=== PATIENT | male | born 1950 | race African-American/Black ===

== ENCOUNTER 2016-06-27 01:44 | Inpatient (IN) | payer MEDICARE ==
[2016-06-27 02:06] LABS: Basophils % (A) 1 %; CH 30.5; CHCM 31.6; Eosinophils # (A) 0.1 k/uL (0-0.7); Eosinophils % (A) 2 %; HCT 34.2 % (39.0-53.0); HDW 2.93; HGB 10.4 gm/dL (13.0-17.5); Hypochromasia Slight; Luc # (Auto) 0.12; Luc % (Auto) 3; Lymphocytes % (A) 42 %; MCH 29.6 pg (25.0-35.0); MCHC 30.4 g/dL (31.0-37.0); MCV 97.3 fL (80.0-100.0); Mean Platelet Volume 7.3; Monocytes # (A) 0.3 k/uL (0-1.0); Monocytes % (A) 6 %; Neutrophils # (A) 2.1 k/uL (1.3-7.7); Neutrophils % (A) 46 %; RBC 3.51 m/uL (4.30-5.90); RDW 15.5 % (11.5-15.5); WBC 4.6 k/uL (3.8-10.6); WBC (Perox) 5.02
--- NOTE | 2016-06-27 02:16 | ED ---
General Adult HPI - General Chief complaint: Chest Pain Stated complaint: Chest Pain Time Seen by Provider: 06/27/16 01:55 Source: patient, EMS, RN notes reviewed, old records reviewed Mode of arrival: EMS Limitations: no limitations - History of Present Illness Initial comments: This is a 65-year-old male here for evaluation. His patient presents for evaluation of chest pain. Patient presenting for evaluation of chest pain starting earlier tonight waking him up from sleep. Patient's arrival fall last night but he states that it wasn't severe enough to come the emergency room. Patient does have history of high blood pressure, unsure of prior cardiac evaluation and workup, denies drugs or alcohol. No fevers cough or congestion, no significant source of breath. Patient does admit history of pancreatitis - Related Data Home Medications Medication Instructions Recorded Confirmed amLODIPine [Norvasc] 5 mg PO DAILY 06/27/16 06/27/16 Allergies Allergy/AdvReac Type Severity Reaction Status Date / Time aspirin Allergy Nausea & Verified 06/27/16 01:50 Vomiting Review of Systems ROS Statement: Those systems with pertinent positive or pertinent negative responses have been documented in the HPI. ROS Other: All systems not noted in ROS Statement are negative. Past Medical History Past Medical History: Hypertension Additional Past Medical History / Comment(s): pancreatitis History of Any Multi-Drug Resistant Organisms: None Reported Past Surgical History: Orthopedic Surgery Past Psychological History: Bipolar, Depression Smoking Status: Current every day smoker Past Alcohol Use History: Occasional Past Drug Use History: None Reported General Exam Limitations: no limitations General appearance: alert, in no apparent distress, anxious, cachectic Head exam: Present: atraumatic, normocephalic, normal inspection Eye exam: Present: normal appearance, PERRL, EOMI. Absent: scleral icterus, conjunctival injection, periorbital swelling ENT exam: Present: mucous membranes dry Neck exam: Present: normal inspection. Absent: tenderness, meningismus, lymphadenopathy Respiratory exam: Present: normal lung sounds bilaterally. Absent: respiratory distress, wheezes, rales, rhonchi, stridor Cardiovascular Exam: Present: normal rhythm, tachycardia, normal heart sounds. Absent: systolic murmur, diastolic murmur, rubs, gallop, clicks GI/Abdominal exam: Present: soft, normal bowel sounds. Absent: distended, tenderness, guarding, rebound, rigid Extremities exam: Present: normal inspection, full ROM, normal capillary refill. Absent: tenderness, pedal edema, joint swelling, calf tenderness Back exam: Present: normal inspection Neurological exam: Present: alert, oriented X3, CN II-XII intact Psychiatric exam: Present: normal affect, normal mood Skin exam: Present: warm, dry, intact, normal color. Absent: rash Course Vital Signs 06/27/16 01:45 Temperature 97.6 F Pulse Rate 107 H Respiratory 20 Rate Blood Pressure 148/82 O2 Sat by Pulse 99 Oximetry - Reevaluation(s) Reevaluation #1: 06/27/16 02:57 patient remains with chest pain EKG Findings - EKG Comments: EKG Findings:: EKG shows sinus tachycardia rate 106, MA 120, QRS 82, QTC 434 Medical Decision Making - Medical Decision Making 65 male here for evaluation of chest pain. Patient multifactorial chest pain severe dehydration and acute renal failure, elevated BUN, elevated creatinine, mildly elevated potassium at this time. Patient given treatment for hyperkalemia, pain control for chest pain, mildly elevated troponin which we'll trend and patient will be started on anticoagulation, we will try troponin's and have cardiac evaluation as well as nephrology evaluation - Lab Data Result diagrams: 06/27/16 01:50 06/27/16 01:50 Lab Results 06/27/16 06/27/16 06/27/16 Range/Units 01:50 01:50 01:50 WBC 4.6 (3.8-10.6) k/uL RBC 3.51 L (4.30-5.90) m/uL Hgb 10.4 L (13.0-17.5) gm/dL Hct 34.2 L (39.0-53.0) % MCV 97.3 (80.0-100.0) fL MCH 29.6 (25.0-35.0) pg MCHC 30.4 L (31.0-37.0) g/dL RDW 15.5 (11.5-15.5) % Plt Count 253 (150-450) k/uL Neutrophils % 46 % Lymphocytes % 42 % Monocytes % 6 % Eosinophils % 2 % Basophils % 1 % Neutrophils # 2.1 (1.3-7.7) k/uL Lymphocytes # 2.0 (1.0-4.8) k/uL Monocytes # 0.3 (0-1.0) k/uL Eosinophils # 0.1 (0-0.7) k/uL Basophils # 0.0 (0-0.2) k/uL Hypochromasia Slight PT (9.0-12.0) sec INR (<1.1) APTT (22.0-30.0) sec Sodium 141 (137-145) mmol/L Potassium 5.9 H (3.5-5.1) mmol/L Chloride 116 H (98-107) mmol/L Carbon Dioxide 10 L* (22-30) mmol/L Anion Gap 15 mmol/L BUN 95 H* (9-20) mg/dL Creatinine 8.10 H* (0.66-1.25) mg/dL Est GFR (MDRD) Af Amer 8 (>60 ml/min/1.73 sqM) Est GFR (MDRD) Non-Af 7 (>60 ml/min/1.73 sqM) Glucose 91 (74-99) mg/dL Calcium 8.3 L (8.4-10.2) mg/dL Phosphorus 4.7 H (2.5-4.5) mg/dL Magnesium 1.8 (1.6-2.3) mg/dL Total Bilirubin 0.4 (0.2-1.3) mg/dL AST 108 H (17-59) U/L ALT 87 H (21-72) U/L Alkaline Phosphatase 303 H (38-126) U/L Total Creatine Kinase 55 (55-170) U/L CK-MB (CK-2) 1.3 (0.0-2.4) ng/mL CK-MB (CK-2) Rel Index 2.4 Troponin I 0.048 H* (0.000-0.034) ng/mL Total Protein 6.8 (6.3-8.2) g/dL Albumin 3.5 (3.5-5.0) g/dL 06/27/16 Range/Units 01:50 WBC (3.8-10.6) k/uL RBC (4.30-5.90) m/uL Hgb (13.0-17.5) gm/dL Hct (39.0-53.0) % MCV (80.0-100.0) fL MCH (25.0-35.0) pg MCHC (31.0-37.0) g/dL RDW (11.5-15.5) % Plt Count (150-450) k/uL Neutrophils % % Lymphocytes % % Monocytes % % Eosinophils % % Basophils % % Neutrophils # (1.3-7.7) k/uL Lymphocytes # (1.0-4.8) k/uL Monocytes # (0-1.0) k/uL Eosinophils # (0-0.7) k/uL Basophils # (0-0.2) k/uL Hypochromasia PT 11.0 (9.0-12.0) sec INR 1.1 (<1.1) APTT 24.8 (22.0-30.0) sec Sodium (137-145) mmol/L Potassium (3.5-5.1) mmol/L Chloride (98-107) mmol/L Carbon Dioxide (22-30) mmol/L Anion Gap mmol/L BUN (9-20) mg/dL Creatinine (0.66-1.25) mg/dL Est GFR (MDRD) Af Amer (>60 ml/min/1.73 sqM) Est GFR (MDRD) Non-Af (>60 ml/min/1.73 sqM) Glucose (74-99) mg/dL Calcium (8.4-10.2) mg/dL Phosphorus (2.5-4.5) mg/dL Magnesium (1.6-2.3) mg/dL Total Bilirubin (0.2-1.3) mg/dL AST (17-59) U/L ALT (21-72) U/L Alkaline Phosphatase (38-126) U/L Total Creatine Kinase (55-170) U/L CK-MB (CK-2) (0.0-2.4) ng/mL CK-MB (CK-2) Rel Index Troponin I (0.000-0.034) ng/mL Total Protein (6.3-8.2) g/dL Albumin (3.5-5.0) g/dL - Radiology Data Radiology results: report reviewed (Chest x-ray 2 view negative for acute disease , x-ray lumbosacral spine, x-ray of pelvis negative for traumatic injury ), image reviewed Critical Care Time Critical Care Time: Yes Total Critical Care Time: 31 Disposition Clinical Impression: NSTEMI (non-ST elevated myocardial infarction), Atypical chest pain, Chest pain , Renal failure, acute, Hyperkalemia Disposition: ADMITTED IP TO THIS HOSP Condition: Serious Instructions: Chest Pain (ED) Referrals: None,Stated [Primary Care Provider] - 1-2 days
[2016-06-27] MEDS ORDERED: SODIUM CHLORIDE 0.9% 1,000 ML IV STA ×3 (02:17→02:52)
[2016-06-27] MEDS ORDERED: SODIUM CHLORIDE 0.9% 500 ML IV STA ×2 (02:17→02:52)
[2016-06-27] MEDS ORDERED: PANTOPRAZOLE 40 MG/10 ML VIAL IVP STA (02:17)
[2016-06-27] MEDS ORDERED: MORPHINE SULFATE 4 MG/ML SYRINGE IVP STA ×2 (02:17→02:55)
[2016-06-27 02:18] LABS: Calcium 8.3 mg/dL (8.4-10.2); Magnesium 1.8 mg/dL (1.6-2.3); Potassium 5.9 mmol/L (3.5-5.1); Total Bilirubin 0.4 mg/dL (0.2-1.3); Total Protein 6.8 g/dL (6.3-8.2)
[2016-06-27 02:20] LABS: INR 1.1 (<1.1); Partial Thromboplastin Time 24.8 sec (22.0-30.0)
--- NOTE | 2016-06-27 02:23 | XR ---
EXAMINATION TYPE: XR chest 2V DATE OF EXAM: 06/27/2016 2:10 AM COMPARISON: NONE HISTORY: Chest and back pain after falling down steps yesterday. TECHNIQUE: Frontal and lateral views of the chest are obtained. FINDINGS: There is no focal air space opacity, pleural effusion, or pneumothorax seen. Chronic lung changes are noted bilaterally. The cardiac silhouette size is within normal limits. The osseous st ructures are intact. IMPRESSION: No acute cardiopulmonary process.
[2016-06-27 02:39] LABS: Phosphorous 4.7 mg/dL (2.5-4.5)
[2016-06-27 02:46] LABS: Creatine Kinase MB 1.3 ng/mL (0.0-2.4)
[2016-06-27 02:47] LABS: Troponin I 0.048 ng/mL (0.000-0.034)
[2016-06-27] MEDS ORDERED: HEPARIN SODIUM,PORCINE 5,000 UNIT/ML 1 ML VIAL IV ONE (02:53)
[2016-06-27] MEDS ORDERED: ASPIRIN 81 MG CHEW PO STA (02:53)
[2016-06-27] MEDS ORDERED: HEPARIN SODIUM,PORCINE 5,000 UNIT/ML 1 ML VIAL IV PRN (02:53)
[2016-06-27] MEDS ORDERED: MORPHINE SULFATE 4 MG/ML SYRINGE IV PRN (02:53)
[2016-06-27] MEDS ORDERED: NITROGLYCERIN SL TABS 0.4 MG TAB SUBLINGUAL PRN (02:53)
[2016-06-27] MEDS ORDERED: SODIUM POLYSTYRENE SULFONATE 15 GM/60 ML BOTTLE PO STA (02:59)
[2016-06-27] MEDS ORDERED: HEPARIN SODIUM,PORCINE/D5W PMX 25,000 UNIT in DEXTROSE/WATER 1 500ML.BAG IV SCH (03:00)
[2016-06-27] MEDS ORDERED: SODIUM CHLORIDE 0.9% 1,000 ML IV SCH (03:00)
--- NOTE | 2016-06-27 03:12 | XR ---
EXAMINATION TYPE: XR lumbar spine 2 or 3V DATE OF EXAM: 06/27/2016 2:52 AM CLINICAL HISTORY: History of fall down steps yesterday back pain TECHNIQUE: Frontal, lateral, images of the lumbar spine are obtained. COMPARISON: None FINDINGS: There is straightening of normal lumbar lordosis. Minor dextroscoliosis is noted in the lumbar spine. The alignment of vertebral bodies and body heights are grossly normal. No definite acute fracture is noted in the lumbar spine. Narrowing of disc space is noted at L2-L3 with the degenerative disc disea se changes and endplate spondylosis. L5-S1 disc space also showed degenerative disc disease changes. Vascular calcifications are noted in the abdominal aorta and iliac arteries. IMPRESSION: 1. No definite acute fracture is noted in the visualized lumbar spine. 2. Multilevel degenerative changes in the lumbar spine. 3. If clinical symptoms persist CT or MRI scan may be helpful.
--- NOTE | 2016-06-27 03:20 | XR ---
EXAMINATION TYPE: XR pelvis AP view DATE OF EXAM: 06/27/2016 2:52 AM COMPARISON: NONE HISTORY: History of fall down steps yesterday back pain TECHNIQUE: Single frontal view of pelvis was obtained. FINDINGS: No definite acute fracture or dislocation is noted in the visualized pelvic bones. Mild degenerative arthritic changes are present in both hip joints sacroiliac joints and lower lumbosacral spine. Phleb oliths are present in the pelvis. IMPRESSION: 1. No definite acute fracture is noted in the pelvic bones. 2. Mild degenerative changes in the pelvic bones. 3. If clinical symptoms persist a CT scan would be beneficial.
[2016-06-27 03:35] LABS: Acetaminophen <10.0 ug/mL; Salicylate <1.0 mg/dL
[2016-06-27 04:02] LABS: Glucose,Whole Blood 72 mg/dL (75-99)
[2016-06-27 04:32] LABS: Glucose,Whole Blood 117 mg/dL (75-99)
[2016-06-27] MEDS: DEXTROSE 5% IN WATER 1,000 ML with SODIUM BICARB (1 MEQ/ML) 150 ML IV SCH ×3 (05:09→22:00)
[2016-06-27 05:39] LABS: Basophils % (A) 1 %; CH 30.5; CHCM 31.2; Eosinophils # (A) 0.1 k/uL (0-0.7); Eosinophils % (A) 2 %; HCT 33.1 % (39.0-53.0); HDW 2.83; HGB 9.9 gm/dL (13.0-17.5); Hypochromasia Slight; Luc # (Auto) 0.15; Luc % (Auto) 3; Lymphocytes # (A) 2.3 k/uL (1.0-4.8); Lymphocytes % (A) 44 %; MCH 29.4 pg (25.0-35.0); MCHC 29.9 g/dL (31.0-37.0); MCV 98.2 fL (80.0-100.0); Macrocytosis Slight; Mean Platelet Volume 7.3; Monocytes # (A) 0.3 k/uL (0-1.0); Monocytes % (A) 6 %; Neutrophils # (A) 2.3 k/uL (1.3-7.7); Neutrophils % (A) 44 %; RBC 3.37 m/uL (4.30-5.90); RDW 15.2 % (11.5-15.5); WBC 5.2 k/uL (3.8-10.6); WBC (Perox) 4.96
[2016-06-27 06:14] LABS: Calcium 8.1 mg/dL (8.4-10.2); Magnesium 1.6 mg/dL (1.6-2.3); Phosphorous 6.8 mg/dL (2.5-4.5)
[2016-06-27 06:16] LABS: Potassium 6.5 mmol/L (3.5-5.1)
[2016-06-27 06:26] LABS: Glucose,Whole Blood 88 mg/dL (75-99)
[2016-06-27] MEDS ORDERED: FUROSEMIDE 10 MG/ML 4 ML VIAL IV STA (06:27)
[2016-06-27] MEDS ORDERED: DEXTROSE 50%-WATER 50 ML SYRINGE IVP STA (06:27)
[2016-06-27] MEDS ORDERED: INSULIN REGULAR 100 UNIT/ML VIAL IV ONE (06:28)
[2016-06-27] MEDS ORDERED: SODIUM BICARB 8.4% 50 ML SYR (1 MEQ/ML) IV STA (06:28)
[2016-06-27] MEDS ORDERED: MAGNESIUM SULFATE-D5W PMX 1 GM in DEXTROSE/WATER 1 100ML.BAG IVPB ONE (09:00)
[2016-06-27] MEDS ORDERED: PANTOPRAZOLE 40 MG/10 ML VIAL IVP SCH (09:00)
[2016-06-27] MEDS: ATORVASTATIN 80 MG TAB PO SCH (09:25)
[2016-06-27 09:50] LABS: Creatine Kinase MB 2.1 ng/mL (0.0-2.4); Troponin I 0.034 ng/mL (0.000-0.034)
--- NOTE | 2016-06-27 10:32 | ECHOF ---
Referral Reason:elevTrop MEASUREMENTS -------- HEIGHT: 170.2 cm WEIGHT: 65.8 kg BP: 178/100 RVIDd: 3.5 cm (< 3.3) IVSd: 1.3 cm (0.6 - 1.1) LVIDd: 3.9 cm (3.9 - 5.3) LVPWd: 1.2 cm (0.6 - 1.1) IVSs: 1.6 cm LVIDs: 2.6 cm LVPWs: 1.8 cm LA Diam: 2.9 cm (2.7 - 3.8) Ao Diam: 2.8 cm (2.0 - 3.7) AV Cusp: 1.5 cm (1.5 - 2.6) MV EXCURSION: 16.659 mm (> 18.000) MV EF SLOPE: 62 mm/s (70 - 150) EPSS: 0.2 cm MV E Zachary: 0.74 m/s MV DecT: 126 ms MV A Zachary: 0.86 m/s MV E/A Ratio: 0.85 FINDINGS -------- Resting tachycardia (HR>100bpm). This was a technically adequate study. The left ventricular size is normal. There is mild concentric left ventricular hypertrophy. Overall left ventricular systolic function is normal with, an EF between 60 - 65 %. The right ventricle is mildly enlarged. The left atrial size is normal. 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 There is mild aortic valve sclerosis. Mild mitral annular calcification present. Trace tricuspid regurgitation present. The pulmonic valve was not well visualized. The aortic root size is normal. Normal inferior vena cava with normal inspiratory collapse consistent with estimated right atrial pressure of 5 mmHg. There is no pericardial effusion. MYXOMA NEEDS NICO SEE COMMENTS ABOVE. CONCLUSIONS -------- 1. Resting tachycardia (HR>100bpm). 2. Mild mitral annular calcification present. 3. Trace tricuspid regurgitation present. 4. The pulmonic valve was not well visualized. 5. The aortic root size is normal. 6. Normal inferior vena cava with normal inspiratory collapse consistent with estimated right atrial pressure of 5 mmHg. 7. There is no pericardial effusion. 8. MYXOMA NEEDS NICO SEE COMMENTS ABOVE. 9. This was a technically adequate study. 10. The left ventricular size is normal. 11. There is mild concentric left ventricular hypertrophy. 12. Overall left ventricular systolic function is normal with, an EF between 60 - 65 %. 13. The right ventricle is mildly enlarged. 14. The left atrial size is normal. 15. The right atrium is normal in size. 16. There is mild aortic valve sclerosis. BRUSHER TENDER: Joycelyn Ohara RDCS
[2016-06-27 11:42] LABS: Appearance,Urine Clear (Clear); Bilirubin,Urine Negative (Negative); Glucose,Urine (UA) Trace (Negative); Ketones,Urine Negative (Negative); Leukocyte Esterase,Urine Negative (Negative); Mucus,Urine Rare /hpf; Nitrite,Urine Negative (Negative); PH, Urine 6.5 (5.0-8.0); Particle Count 192; Protein,Urine 1+ (Negative); RBC,Urine <1 /hpf (0-5); Specific Gravity,Urine 1.004 (1.001-1.035); Squamous Epithelial Cell,Urine <1 /hpf (0-4); UA Billing (MACRO vs. MICRO) MICRO; Urobilinogen,Urine <2.0 mg/dL (<2.0); WBC,Urine 2 /hpf (0-5)
--- NOTE | 2016-06-27 12:41 | P.NPCON ---
History of Present Illness - Reason for Consult acute renal failure, chronic renal failure - History of Present Illness Patient is a 65-year-old -[place] male who was admitted to the hospital status post fall with significant back pain. He had also been feeling quite weak. Patient is noted to have a serum creatinine of 8.1 mg/dL the time of admission his CO2 was 10 and potassium was at 5.6 which is now up to 6.5 mg/L. Patient has had good urine output and he states that he has been at stage IV with GFR of about 15 ML per minute for quite some time. 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 So far he has been able to avoid dialysis as his renal function has been fairly stable. There is no complaints of nausea vomiting or abdominal pain no ongoing diarrhea Review of Systems As per HPI other systems negative Past Medical History Past Medical History: Hypertension Additional Past Medical History / Comment(s): pancreatitis History of Any Multi-Drug Resistant Organisms: None Reported Past Surgical History: Orthopedic Surgery Past Psychological History: Bipolar, Depression Smoking Status: Current every day smoker Past Alcohol Use History: Occasional Past Drug Use History: None Reported Medications and Allergies Home Medications Medication Instructions Recorded Confirmed Type amLODIPine [Norvasc] 5 mg PO DAILY 06/27/16 06/27/16 History Allergies Allergy/AdvReac Type Severity Reaction Status Date / Time aspirin Allergy Nausea & Verified 06/27/16 01:50 Vomiting Physical Exam Vitals: Vital Signs Temp Pulse Pulse Resp BP BP Pulse Ox 06/27/16 04:00 98 F 84 14 177/94 06/27/16 03:25 98 F 87 14 177/94 06/27/16 03:21 82 18 158/91 100 Intake and Output 06/26/16 06/27/16 06/27/16 22:59 06:59 14:59 Intake Total 3299 Output Total 1100 625 Balance 2199 -625 Intake: IV 1299 Dextrose 5% in Water 1, 50 000 ml @ 50 mls/hr IV . Q23H BRITTON with Sodium Bicarb (1 Meq/ml) 150 ml Rx#:[id number] Sodium Chloride 0.9% 1, 250 000 ml @ 100 mls/hr IV . Q10H BRITTON Rx#:[id number] Sodium Chloride 0.9% 1, 999 000 ml @ 999 mls/hr IV . Q1H1M STA Rx#:[id number] Amount of Fluid Infused ( 2000 ml) Output: Urine 1100 625 Other: Voiding Method Urinal Urinal Weight 57.3 kg Examination patient is comfortable awake alert and oriented 3. He is not in any acute distress. Blood pressure is 177/94 heart rate 84/m he is afebrile [place] examination of the heart S1 and S2 His admission lungs bilateral breath sounds are heard Abdomen is soft nontender Examination lower extremities shows no evidence of edema GUN NUMBER exam is grossly intact. No asterixis are noted. Results - Lab Results Most recent lab results Calcium 8.1 mg/dL (8.4-10.2) L 06/27/16 05:21 Phosphorus 6.8 mg/dL (2.5-4.5) H 06/27/16 05:21 Magnesium 1.6 mg/dL (1.6-2.3) 06/27/16 05:21 06/27/16 05:21 06/27/16 05:21 Assessment and Plan Plan: Assessment start IV bicarb at 50 mL an hour and also start patient on oral sodium bicarb. If his hyperkalemia does not improve or the acidosis 1. Acute kidney injury most likely ATN currently nonoliguric. They may be a component of prerenal acute kidney injury as well. Patient is maintained on IV fluids and repeat labs are now pending. There is no evidence of significant symptoms of uremia at this time and I have discussed renal replacement therapy but the patient. He stated that he would be agreeable to start dialysis if indicated. 2. Chronic kidney disease NKF stage V with estimated GFR at about 15 ML per minute according to the patient. He was being followed in [facility] prior to him moving down here. 3. Severe metabolic acidosis, non-gap secondary to renal failure maintained on small amount of IV bicarb. Patient will also be started on oral sodium bicarb. 4. 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 5. Anemia of chronic disease rule out iron deficiency 6. Hyperkalemia associated with advanced renal failure and metabolic acidosis status post Kayexalate and IV treatment. Repeat labs are pending. Next Plan Start IV bicarb at 50 mL an hour and also start oral sodium bicarb. If the hyperkalemia and acidosis does not improve and patient's renal function does not improve he will need to be started on dialysis. Check iron profile check phosphorus levels. Thank you for this consultation we'll continue to follow the patient with you during his hospitalization
[2016-06-27] MEDS: amLODIPine 5 MG TAB PO SCH (12:47)
[2016-06-27] MEDS: METOPROLOL TARTRATE 25 MG TAB PO SCH ×3 (12:47→20:35)
[2016-06-27 14:56] LABS: Troponin I 0.029 ng/mL (0.000-0.034)
[2016-06-27] MEDS: HYDROmorphone 1 MG/ML 1 ML SYRINGE IVP PRN ×3 (15:02→23:07)
[2016-06-27 15:12] LABS: Calcium 8.4 mg/dL (8.4-10.2); Phosphorous 7.8 mg/dL (2.5-4.5); Potassium 5.9 mmol/L (3.5-5.1)
[2016-06-27 15:20] LABS: % Iron Saturation 71.5 % (20-50)
--- NOTE | 2016-06-27 16:18 | US ---
EXAMINATION TYPE: US renals and bladder DATE OF EXAM: 06/27/2016 12:51 PM COMPARISON: NONE CLINICAL HISTORY: US. BIBIANA EXAM MEASUREMENTS: Right Kidney: 9.5 x 4.0 x 4.1cm Left Kidney: 7.9 x 4.5 x 3.6cm ANATOMY: There is loss of corticomedullary differentiation bilaterally. Right Kidney: echogenic in appearance, no evidence of hydronephrosis Left Kidney: limited evaluation, difficult to visualize, echogenic in appearance Bladder: possible debris noted within IMPRESSION: Findings suggest medical renal disease.. Normal Values: Renal Length = 9 - 12cm Bladder Wall: < 0.3cm
--- NOTE | 2016-06-27 18:19 | HP ---
DATE OF ADMISSION: 06/27/2016 65-year-old who came to the hospital after he had a fall. The patient complaining of chest pain. All the work-up ( ). The patient did not have any syncopal episode. Patient had slip and fall. Lumbar x-ray, pelvic x-ray are essentially negative. Patient is also found to have ( ) patient is complaining of sharp chest pain. Has been constant since last night and denied any nausea. Denied diaphoresis. Denied any abdominal ( ) patient does not have any pericardial friction rub. Patient denied any nausea, vomiting. Patient chest pain is nonpleuritic in nature. Does not change with position. About 10/10 in severity with minimal improvement with sublingual nitroglycerin. Patient was found to have highly elevated BUN and creatinine. Nephrology was consulted. Ultrasound of the kidney was obtained. Urine eosinophils, BUN and creatinine urine creatinine, random creatinine and urine random sodium were ordered and patient is on IV fluids, has been urinating very well and patient apparently appears to have some CKD. Patient was told his kidney is functioning at 15%. Patient denied any nausea, vomiting, bad taste in the mouth. Patient does not have any asterixis at this point of time. Patient is severely uremic and hyperkalemic and patient received Kayexelate as well and IV insulin and calcium gluconate. Nephrology will evaluate the patient. REVIEW OF SYSTEMS: CONSTITUTIONAL: No fever, no malaise, no fatigue. HEENT: No recent visual problems or hearing problems. Denied any sore throat. CARDIOVASCULAR: As described in history of present illness. PULMONARY: No shortness of breath, no cough, no hemoptysis. GASTROINTESTINAL: No diarrhea, no nausea, no vomiting, no abdominal pain. Normoactive bowel sounds. NEUROLOGICAL: No headaches, no weakness, no numbness. HEMATOLOGICAL: Denies any bleeding or petechiae. GENITOURINARY: Denies any burning micturition, frequency, or urgency. MUSCULOSKELETAL/RHEUMATOLOGICAL: As described in history of present illness. ENDOCRINE: Denies any polyuria or polydipsia. The rest of the 14 point review of systems is negative. Past medical history is significant for hypertension, a possibility of hypertensive nephrosclerosis, bipolar disorder, depression, possible chronic kidney disease stage is unknown at this point of time possibly stage 4 or 5. The patient continues to smoke. Denied any alcohol abuse or any drug abuse. FAMILY HISTORY: Unknown at this point of time. PHYSICAL EXAMINATION: VITAL SIGNS: Temperature 980.0, pulse of 83, respiratory rate of 18, blood pressure 138/99, saturating at 98% on room air. GENERAL: The patient is alert and oriented x3, not in any acute distress. Well developed, well nourished. HEENT: Pupils are round and equally reacting to light. EOMI. No scleral icterus. No conjunctival pallor. Normocephalic, atraumatic. No pharyngeal erythema. No thyromegaly. CARDIOVASCULAR: S1 and S2 present. No murmurs, rubs, or gallops. PULMONARY: Chest is clear to auscultation, no wheezing or crackles. ABDOMEN: Soft, nontender, nondistended, normoactive bowel sounds. No palpable organomegaly. MUSCULOSKELETAL: No joint swelling or deformity. EXTREMITIES: No cyanosis, clubbing, or pedal edema. NEUROLOGICAL: Gross neurological examination did not reveal any focal deficits. SKIN: No rashes. LABORATORY DATA: CMP and BMP are abnormal for low hemoglobin of 9.9, normocytic anemia, probably anemia of chronic kidney disease and potassium of 6.5, now 5.9, sodium 144, now 148, bicarbonate is 12. Patient is receiving IV bicarbonate as per nephrology and anion gap is 20. Patient is uremic and uremia is leading to anion gap metabolic acidosis. BUN 94, creatinine 7.10. Patient has very minimal elevated troponins of 0.034. Patient received an echocardiogram because of the chest which is essentially within normal limits. Ultrasound of the kidneys pending. Chest x-ray did not show any acute process. ASSESSMENT AND PLAN: 1. Chest pain, appears to be a noncardiac in nature, unsure of the exact etiology further evaluation as per cardiology who was consulted and patient has minimal elevated troponins because of chronic kidney disease and renal failure. 2. Acute renal failure, most likely acute tubular necrosis nonoliguric acute tubular necrosis. Patient is having good urine output. Continue with IV fluids and further work-up as mentioned above and bicarbonate infusion as mentioned above. 3. Patient symptoms of chest pain does not appear to be uremic as patient does not have any pericardial friction on exam. I will avoid nephrotoxic agents and switch morphine to Dilaudid at a lower dose. 4. Hyperkalemia patient appears to have chronic kidney disease probably stage IV or V secondary to hypertensive nephrosclerosis. 5. Severe metabolic encephalopathy secondary to uremia. 6. Mobile mass in the tricuspid valves for which he is being recommended, I will leave further decision to cardiology to do a NICO. 7. Anemia of chronic kidney disease and ferritin is being ordered to rule out any iron deficiency anemia. 8. Hyperkalemia due to renal failure. 9. Hypertension. Will let the blood pressure ( ) to improve perfusion. 10. The patient work-up for his fall is negative. Fall appears to be mechanical fall.
--- NOTE | 2016-06-27 19:09 | P.CRDCN ---
History of Present Illness Consult date: 06/27/16 Chief complaint: Chest Pain and back pain History of present illness: This is a 65-year-old gentleman who moved to this area recently from [place]. He claims that he had chronic renal failure and was being followed by senior hydrogeologist in [place]. He also claimed that he was on dialysis one time. Apparently he came following a fall and back pain. He is also complaining of chest pain which is constant in nature. He claims the pain was 10 out of 10 when it started and currently about 7 out of 10. The pain is not helped by nitroglycerin. It is helped to some extent by morphine. He doesn't seem to be in acute distress. The pain doesn't appear to be respirophasic. No associated nausea or vomiting. His EKG showed sinus rhythm and sinus tachycardia. Cardiac enzyme studies were borderline elevation of troponin but the pattern is not consistent with acute myocardial injury pattern. Is also found to have high creatinine suggestive of acute on chronic renal failure. His potassium is also going up and is being seen by senior hydrogeologist and there is a plan for possible dialysis. A bedside echocardiogram showed normal LV function. There is a echo dense slightly mobile lesion near the annulus of the mitral leaflet on the lateral aspect. The possibility of a myxoma cannot be excluded. When patient is stable a NICO examination may be considered probably next week. Review of Systems REVIEW OF SYSTEMS: CONSTITUTIONAL:. Patient appears to be in no distress. However complaints of having pain in the chest. EYES: Denies diplopia, blurring of vision EARS, NOSE, MOUTH, THROAT: Denies headaches, denies sore throat. CARDIOVASCULAR: As per the H&P and consult RESPIRATORY: Denies shortness of breath, denies cough. GASTROINTESTINAL: Denies change in appetite, denies abdominal pain, denies diarrhea GENITOURINARY: Denies hematuria, denies infections. MUSKULOSKELETAL: Implants of back pain INTEGUMENTARY: Denies rash, denies eczema. NEUROLOGICAL: Denies focal weakness, or visual disturbance. Denies any dizziness or syncope PSYCHIATRIC: Denies anxiety, denies depression. HEMATOLOGIC/LYMPHATIC: Denies any bleeding, denies enlarged lymph nodes. Past Medical History Past Medical History: Hypertension Additional Past Medical History / Comment(s): pancreatitis History of Any Multi-Drug Resistant Organisms: None Reported Past Surgical History: Orthopedic Surgery Past Psychological History: Bipolar, Depression Smoking Status: Current every day smoker Past Alcohol Use History: Occasional Past Drug Use History: None Reported Medications and Allergies Home Medications Medication Instructions Recorded Confirmed Type amLODIPine [Norvasc] 5 mg PO DAILY 06/27/16 06/27/16 History Allergies Allergy/AdvReac Type Severity Reaction Status Date / Time aspirin Allergy Nausea & Verified 06/27/16 01:50 Vomiting Physical Exam Vitals: Vital Signs Temp Pulse Pulse Resp BP BP Pulse Ox 06/27/16 16:00 98 F 82 18 159/93 95 06/27/16 12:00 98 F 83 18 178/99 98 06/27/16 08:00 97.8 F 98 18 178/100 98 06/27/16 04:00 98 F 84 14 177/94 06/27/16 03:25 98 F 87 14 177/94 06/27/16 03:21 82 18 158/91 100 Intake and Output 06/27/16 06/27/16 06/27/16 06:59 14:59 22:59 Intake Total 3299 800 Output Total 6738 036 8583 Balance 2199 -625 -1000 Intake: IV 1299 800 Dextrose 5% in Water 1, 50 400 000 ml @ 50 mls/hr IV . Q23H [facility] with Sodium Bicarb (1 Meq/ml) 150 ml Rx#:[id number] Sodium Chloride 0.9% 1, 250 400 000 ml @ 100 mls/hr IV . Q10H [facility] Rx#:[id number] Sodium Chloride 0.9% 1, 999 000 ml @ 999 mls/hr IV . Q1H1M [facility] Rx#:[id number] Amount of Fluid Infused ( 2000 ml) Output: Urine 3380 176 6582 Other: Voiding Method Urinal Urinal Urinal Weight 57.3 kg GENERAL EXAM: Patient is alert and oriented and doesn't appear to be in any acute distress HEENT: Normocephalic. Normal reaction of pupils, equal size, normal range of extraocular motion. No erythema or exudates in the throat. NECK: No masses, no nuchal rigidity. CHEST: No chest wall deformity. LUNGS: Equal air entry with no crackles or wheeze. HEART: S1 and S2 normal with no audible mumurs or gallops. Regular rhythm, no pericardial rub heard ABDOMEN: No hepatosplenomegaly, normal bowel sounds, no guarding or rigidity. SKIN: No rashes CENTRAL NERVOUS SYSTEM: No focal deficits. EXTREMITIES: No cyanosis, clubbing or edema. Results 06/27/16 05:21 06/27/16 14:10 Cardiac Enzymes 06/27/16 06/27/16 Range/Units 08:51 14:10 CK-MB (CK-2) 2.1 3.0 H* (0.0-2.4) ng/mL Troponin I 0.034 0.029 (0.000-0.034) ng/mL Coagulation 06/27/16 Range/Units 08:51 APTT 54.0 H (22.0-30.0) sec CBC 06/27/16 Range/Units 05:21 WBC 5.2 (3.8-10.6) k/uL RBC 3.37 L (4.30-5.90) m/uL Hgb 9.9 L (13.0-17.5) gm/dL Hct 33.1 L (39.0-53.0) % Plt Count 252 (150-450) k/uL Comprehensive Metabolic Panel 06/27/16 06/27/16 Range/Units 05:21 14:10 Sodium 144 148 H (137-145) mmol/L Potassium 6.5 H* 5.9 H (3.5-5.1) mmol/L Chloride 119 H 116 H (98-107) mmol/L Carbon Dioxide 10 L* 12 L (22-30) mmol/L BUN 88 H* 94 H* (9-20) mg/dL Creatinine 7.52 H* 7.10 H* (0.66-1.25) mg/dL Glucose 79 105 H (74-99) mg/dL Calcium 8.1 L 8.4 (8.4-10.2) mg/dL Current Medications Generic Name Dose Route Start Last Admin Trade Name Freq PRN Reason Stop Dose Admin Amlodipine Besylate 5 mg 06/27/16 12:15 06/27/16 12:47 Norvasc PO 5 mg DAILY [facility] Administration Aspirin 325 mg 06/28/16 09:00 Aspirin PO DAILY [facility] Atorvastatin Calcium 80 mg 06/27/16 09:00 06/27/16 09:25 Lipitor PO 80 mg DAILY [facility] Administration Hydromorphone HCl 0.5 mg 06/27/16 11:18 06/27/16 18:55 Dilaudid IVP 0.5 mg Q4HR PRN Administration Pain Sodium Bicarbonate 150 ml/ 1,150 mls @ 100 mls/hr 06/27/16 05:00 06/27/16 18: 55 Dextrose/Water IV 100 mls/hr .[id number] [facility] Administration Metoprolol Tartrate 25 mg 06/27/16 21:00 06/27/16 12:49 Lopressor PO 25 mg BID [facility] Administration Nitroglycerin 0.4 mg 06/27/16 02:53 Nitrostat SUBLINGUAL Q5M PRN Chest Pain Pantoprazole Sodium 40 mg 06/28/16 09:00 Protonix PO DAILY [facility] Intake and Output 06/27/16 06/27/16 06/27/16 06:59 14:59 22:59 Intake Total 3299 800 Output Total 4031 350 7166 Balance 2192 -625 1000 Intake: IV 1299 800 Dextrose 5% in Water 1, 50 400 000 ml @ 50 mls/hr IV . Q23H [facility] with Sodium Bicarb (1 Meq/ml) 150 ml Rx#:[id number] Sodium Chloride 0.9% 1, 250 400 000 ml @ 100 mls/hr IV . Q10H [facility] Rx#:[id number] Sodium Chloride 0.9% 1, 999 000 ml @ 999 mls/hr IV . Q1H1M [facility] Rx#:[id number] Amount of Fluid Infused ( 2000 ml) Output: Urine 8599 327 1894 Other: Voiding Method Urinal Urinal Urinal Weight 57.3 kg 06/27/16 05:21 06/27/16 14:10 EKG Interpretations (text) Sinus rhythm and sinus tachycardia Assessment and Plan (1) Acute on chronic renal failure Status: Acute (2) Hypertension Status: Acute (3) Atypical chest pain Status: Acute (4) Hyperkalemia Status: Acute Plan: History chest pains appear to be atypical and constant in nature. EKG did not reveal any acute changes and cardiac enzymes are not consistent with acute myocardial injury pattern. Echocardiogram showed normal LV function. There is questionable mass in the right atrium which need to be further evaluated by NICO when patient's clinical status is stable. We are dealing with acute on chronic renal failure and patient may need dialysis. No further cardiac intervention like cardiac catheterization is contemplated this time. Possibility of nuclear stress test and is medically stable to be considered. Further recommendation will depend upon the clinical course. Prognosis is guarded
[2016-06-27 21:02] LABS: Calcium 8.1 mg/dL (8.4-10.2); Potassium 5.6 mmol/L (3.5-5.1)
[2016-06-28] MEDS: HYDROmorphone 1 MG/ML 1 ML SYRINGE IVP PRN ×5 (03:05→22:13)
[2016-06-28 05:21] LABS: CH 30.6; CHCM 32.6; HCT 30.7 % (39.0-53.0); HDW 2.81; HGB 9.9 gm/dL (13.0-17.5); MCH 30.5 pg (25.0-35.0); MCHC 32.3 g/dL (31.0-37.0); MCV 94.2 fL (80.0-100.0); Mean Platelet Volume 6.3; RBC 3.26 m/uL (4.30-5.90); RDW 15.2 % (11.5-15.5)
[2016-06-28 05:47] LABS: Calcium 7.9 mg/dL (8.4-10.2); Magnesium 1.6 mg/dL (1.6-2.3); Potassium 4.3 mmol/L (3.5-5.1); Total Bilirubin 0.4 mg/dL (0.2-1.3); Total Protein 5.9 g/dL (6.3-8.2)
[2016-06-28] MEDS: ATORVASTATIN 80 MG TAB PO SCH (08:51)
[2016-06-28] MEDS: METOPROLOL TARTRATE 25 MG TAB PO SCH ×2 (08:51→19:58)
[2016-06-28] MEDS: amLODIPine 5 MG TAB PO SCH (08:51)
[2016-06-28] MEDS: ASPIRIN 325 MG TAB PO SCH ×2 (08:51→09:52)
[2016-06-28] MEDS: PANTOPRAZOLE 40 MG TABLET PO SCH (08:51)
--- NOTE | 2016-06-28 09:36 | P.PN ---
Subjective Principal diagnosis: Patient is seen in follow-up for acute kidney injury on chronic kidney disease. Patient has chronic kidney disease stage 4-5 and was following with a pot fluxer out of state. His renal function is improving and creatinine is down to 6.1 today. He is nonoliguric. Appetite is improving. His bicarb level is up to 21. He initially presented with generalized weakness and fall. Feels better today. Denies any vomiting or diarrhea. Vital signs are stable. General: The patient appeared well nourished and normally developed. HEENT: Head exam is unremarkable. Neck is without jugular venous distension. LUNGS: Lungs are clear to auscultation and percussion. Breath sounds decreased. HEART: Rate and Rhythm are regular. First and second heart sounds normal. No murmurs, rubs or gallops. ABDOMEN: Abdominal exam reveals normal bowel sounds. Non-tender and non- distended. No evidence of peritonitis. EXTREMITITES: No clubbing, cyanosis, or edema. Objective - Vital Signs Vital signs: Vital Signs Temp 97.9 F 06/28/16 04:00 Pulse 67 06/28/16 04:00 Resp 16 06/28/16 04:00 BP 143/92 06/28/16 04:00 Pulse Ox 94 L 06/28/16 04:00 Intake & Output 06/27/16 06/28/16 06/28/16 18:59 06:59 18:59 Intake Total 800 1000 Output Total 2425 1150 Balance -1625 -150 Weight 57.606 kg Intake: IV 800 1000 Dextrose 5% in Water 1, 400 1000 000 ml @ 100 mls/hr IV . [id number] [facility] with Sodium Bicarb (1 Meq/ml) 150 ml Rx#:[id number] Sodium Chloride 0.9% 1, 400 000 ml @ 100 mls/hr IV . Q10H [facility] Rx#:[id number] Output: Urine 2425 1150 Other: Voiding Method Urinal Urinal # Voids 1 - Labs CBC & Chem 7: 06/28/16 05:03 06/28/16 05:03 Labs: Abnormal Lab Results - Last 24 Hours (Table) 06/27/16 06/27/16 06/27/16 Range/Units 08:51 11:25 11:25 RBC (4.30-5.90) m/uL Hgb (13.0-17.5) gm/dL Hct (39.0-53.0) % Sodium (137-145) mmol/L Potassium (3.5-5.1) mmol/L Chloride (98-107) mmol/L Carbon Dioxide (22-30) mmol/L BUN (9-20) mg/dL Creatinine (0.66-1.25) mg/dL Glucose (74-99) mg/dL Calcium (8.4-10.2) mg/dL Phosphorus (2.5-4.5) mg/dL Iron (49-181) ug/dL % Saturation (20-50) % AST (17-59) U/L ALT (21-72) U/L Alkaline Phosphatase (38-126) U/L Total Creatine Kinase 51 L (55-170) U/L CK-MB (CK-2) (0.0-2.4) ng/mL Total Protein (6.3-8.2) g/dL Albumin (3.5-5.0) g/dL HDL Cholesterol (40-60) mg/dL Urine Protein 1+ H (Negative) Urine Glucose (UA) Trace H (Negative) Urine Mucus Rare H (None) /hpf Ur Random Sodium 129 H (30-90) mmol/L 06/27/16 06/27/16 06/27/16 Range/Units 14:10 14:10 20:20 RBC (4.30-5.90) m/uL Hgb (13.0-17.5) gm/dL Hct (39.0-53.0) % Sodium 148 H (137-145) mmol/L Potassium 5.9 H 5.6 H (3.5-5.1) mmol/L Chloride 116 H 109 H (98-107) mmol/L Carbon Dioxide 12 L 15 L (22-30) mmol/L BUN 94 H* 92 H* (9-20) mg/dL Creatinine 7.10 H* 6.67 H* (0.66-1.25) mg/dL Glucose 105 H 152 H (74-99) mg/dL Calcium 8.1 L (8.4-10.2) mg/dL Phosphorus 7.8 H (2.5-4.5) mg/dL Iron 221 H (49-181) ug/dL % Saturation 71.5 H (20-50) % AST (17-59) U/L ALT (21-72) U/L Alkaline Phosphatase (38-126) U/L Total Creatine Kinase (55-170) U/L CK-MB (CK-2) 3.0 H* (0.0-2.4) ng/mL Total Protein (6.3-8.2) g/dL Albumin (3.5-5.0) g/dL HDL Cholesterol (40-60) mg/dL Urine Protein (Negative) Urine Glucose (UA) (Negative) Urine Mucus (None) /hpf Ur Random Sodium (30-90) mmol/L 06/28/16 06/28/16 Range/Units 05:03 05:03 RBC 3.26 L (4.30-5.90) m/uL Hgb 9.9 L (13.0-17.5) gm/dL Hct 30.7 L (39.0-53.0) % Sodium (137-145) mmol/L Potassium (3.5-5.1) mmol/L Chloride (98-107) mmol/L Carbon Dioxide 21 L (22-30) mmol/L BUN 88 H* (9-20) mg/dL Creatinine 6.10 H* (0.66-1.25) mg/dL Glucose (74-99) mg/dL Calcium 7.9 L (8.4-10.2) mg/dL Phosphorus 6.0 H (2.5-4.5) mg/dL Iron (49-181) ug/dL % Saturation (20-50) % AST 73 H (17-59) U/L ALT 83 H (21-72) U/L Alkaline Phosphatase 283 H (38-126) U/L Total Creatine Kinase (55-170) U/L CK-MB (CK-2) (0.0-2.4) ng/mL Total Protein 5.9 L (6.3-8.2) g/dL Albumin 3.0 L (3.5-5.0) g/dL HDL Cholesterol 106 H (40-60) mg/dL Urine Protein (Negative) Urine Glucose (UA) (Negative) Urine Mucus (None) /hpf Ur Random Sodium (30-90) mmol/L Assessment and Plan Plan: Assessment: #1. Nonoliguric acute kidney injury mostly prerenal in nature. Improving. Creatinine down to 6.1 today. No hydronephrosis noted on renal ultrasound. #2. Chronic kidney disease stage 4-5 with baseline GFR about 15. Etiology is likely nephrosclerosis. #3. Severe metabolic acidosis secondary to acute kidney injury. Improving. #4. Hyperkalemia secondary to acute kidney injury and metabolic acidosis. Resolved. #5. 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 Cardiology following. May require NICO. #6. Anemia of chronic kidney disease. Iron replete. Plan: Discontinue sodium bicarbonate drip. Start oral sodium bicarbonate 650 mg twice daily. Start normal saline to be run at 75 mL an hour. Avoid nephrotoxic agents and hypotensive episodes. Repeat electrolytes in the morning. Stable to be transferred out of the intensive care unit from nephrology standpoint.
[2016-06-28] MEDS: SODIUM CHLORIDE 0.9% 1,000 ML IV SCH (09:45)
[2016-06-28] MEDS: MAGNESIUM SULFATE-D5W PMX 1 GM in DEXTROSE/WATER 1 100ML.BAG IVPB SCH ×2 (09:45→12:11)
[2016-06-28] MEDS: SODIUM BICARBONATE TAB 650 MG TAB PO SCH ×2 (12:12→19:58)
--- NOTE | 2016-06-28 14:16 | PN ---
Patient is 65-year-old who came into the hospital after a fall. Patient is still having little bit of chest pain which is noncardiac in nature and patient has minimal improvement in BUN and creatinine. We are just monitor at this point of time. Patient is switched over to bicarbonate. 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 REVIEW OF SYSTEMS: CARDIOVASCULAR: As described in HPI. The patient denied any shortness of breath. PULMONARY: Denied any shortness of breath. No cough or hemoptysis. GASTROINTESTINAL: No diarrhea, nausea or vomiting. No abdominal pain. Normoactive bowel sounds. NEUROLOGIC: No headaches, no weakness, no numbness. Medications were reviewed. PHYSICAL EXAMINATION: VITAL SIGNS: Temperature 98.1, pulse of 70, respiratory rate of 12, blood pressure is 142/88, saturating at 97% on room air. GENERAL: The patient is alert and oriented x3, not in any acute distress. Well developed, well nourished. HEENT: Pupils are round and equally reacting to light. EOMI. No scleral icterus. No conjunctival pallor. Normocephalic, atraumatic. No pharyngeal erythema. No thyromegaly. CARDIOVASCULAR: S1 and S2 present. No murmurs, rubs, or gallops. PULMONARY: Chest is clear to auscultation, no wheezing or crackles. ABDOMEN: Soft, nontender, nondistended, normoactive bowel sounds. No palpable organomegaly. MUSCULOSKELETAL: No joint swelling or deformity. EXTREMITIES: No cyanosis, clubbing, or pedal edema. NEUROLOGICAL: Gross neurological examination did not reveal any focal deficits. SKIN: No rashes. LABORATORY DATA: No significant change compared to yesterday except for minimal improvement in creatinine to 6.10 from 7.52. Potassium did improve to 4.3, chloride to 104. Patient is getting IV fluids at 75 mL of IV fluids. Bicarbonate improved to 21. ASSESSMENT AND PLAN: 1. Chest pain, appears to be noncardiac and musculoskeletal in nature. Troponin elevation I do not believe it is related to myocardial infarction. 2. Acute renal failure most likely secondary to acute tubular necrosis, nonoliguric acute tubular necrosis and patient does have chronic kidney disease stage IV to V. Continue with gentle hydration. Hydration may not help him much. Further management as per nephrology. Patient is on oral bicarbonate at this point of time. 3. Hyperkalemia due to kidney injury, which improved. 4. Severe metabolic acidosis secondary to uremia, which improved with bicarbonate infusion. 5. 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 6. Anemia of chronic kidney disease. I do not see any serum ferritin levels. Serum iron is 221. I do not have a ferritin level. Total saturation is 309. 7. Hypertension. 8. Mechanical fall without any fractures.
[2016-06-28] MEDS: HYDROcodone/APAP 5-325MG 1 EACH TAB PO PRN ×2 (16:02→19:58)
--- NOTE | 2016-06-28 21:59 | PN ---
DATE OF SERVICE: June 28, 2016 BRIEF HISTORY: This is a pleasant 65-year-old -[place] gentleman with a past medical history significant for chronic renal failure, who was admitted to the hospital after he fell at home. He was experiencing some chest discomfort which seems to be noncardiac. He underwent cardiac enzymes which came in to be slightly abnormal, but he was in acute renal failure, which could be responsible for the troponin abnormalities. On followup with him today, he denies having any chest pain or chest discomfort and also denies having any shortness of breath. Overall, he is feeling better. He underwent an echocardiogram which showed right atrial myxoma. Transesophageal echocardiogram is recommended. PHYSICAL EXAMINATION: GENERAL APPEARANCE: He does not look in any pain or any distress. Vitals showed the following: Temp is 97.6, heart rate 67, respiratory rate 16, pressure is 151/84 mmHg. Cardiovascular shows regular rate and rhythm. Respiratory shows clear breathing sounds bilaterally. DIAGNOSTIC WORKUP: WBC 5.0, hemoglobin 9.9, platelets 250. Sodium 138, potassium 4.3, creatinine 6.10, BUN of 88. Current medications include: 1. Aspirin 325 mg p.o. daily. 2. Atorvastatin 80 mg p.o. q.h.s. 3. Metoprolol 25 mg p.o. b.i.d. ASSESSMENT: 1. Status post fall. 2. Atypical chest discomfort. 3. Mildly abnormal cardiac enzymes. 4. Right atrial myxoma. PLAN: 1. Continue the current medical treatment with aspirin, statin and beta raciel. 2. Transesophageal echocardiogram to be performed next week.
[2016-06-29] MEDS: HYDROcodone/APAP 5-325MG 1 EACH TAB PO PRN ×5 (00:49→19:58)
[2016-06-29] MEDS: SODIUM CHLORIDE 0.9% 1,000 ML IV SCH ×2 (00:51→09:42)
[2016-06-29] MEDS: HYDROmorphone 1 MG/ML 1 ML SYRINGE IVP PRN ×5 (02:38→21:54)
[2016-06-29 06:45] LABS: Mean Platelet Volume 7.5
[2016-06-29 08:37] LABS: Calcium 8.4 mg/dL (8.4-10.2); Potassium 5.7 mmol/L (3.5-5.1)
--- NOTE | 2016-06-29 09:17 | P.PN ---
Subjective Principal diagnosis: Patient is seen in follow-up for acute kidney injury on chronic kidney disease. Patient has chronic kidney disease stage 4-5 and was following with a administrative officer out of state. His renal function is improving and creatinine is down to 5.66 today. He is nonoliguric. Appetite is improving. He initially presented with generalized weakness and fall. Feels better today. Denies any vomiting or diarrhea. Admits to good urine output. Vital signs are stable. General: The patient appeared well nourished and normally developed. HEENT: Head exam is unremarkable. Neck is without jugular venous distension. LUNGS: Lungs are clear to auscultation and percussion. Breath sounds decreased. HEART: Rate and Rhythm are regular. First and second heart sounds normal. No murmurs, rubs or gallops. ABDOMEN: Abdominal exam reveals normal bowel sounds. Non-tender and non- distended. No evidence of peritonitis. EXTREMITITES: No clubbing, cyanosis, or edema. Objective - Vital Signs Vital signs: Vital Signs Temp 97.3 F L 06/29/16 04:00 Pulse 65 06/29/16 04:00 Resp 18 06/29/16 04:00 BP 124/84 06/29/16 04:00 Pulse Ox 95 06/29/16 04:00 Intake & Output 06/28/16 06/29/16 06/29/16 18:59 06:59 18:59 Intake Total 960 540 Output Total 1000 1150 Balance -40 -610 Weight 60.2 kg Intake: IV 600 300 Sodium Chloride 0.9% 1, 600 300 000 ml @ 75 mls/hr IV . [id number] [facility] Rx#:[id number] Oral 360 240 Output: Urine 1000 1150 Other: Voiding Method Urinal Urinal # Voids 2 - Labs CBC & Chem 7: 06/29/16 05:31 06/29/16 07:51 Labs: Abnormal Lab Results - Last 24 Hours (Table) 06/29/16 Range/Units 07:51 Potassium 5.7 H (3.5-5.1) mmol/L Carbon Dioxide 17 L (22-30) mmol/L BUN 90 H* (9-20) mg/dL Creatinine 5.66 H* (0.66-1.25) mg/dL Assessment and Plan Plan: Assessment: #1. Nonoliguric acute kidney injury mostly prerenal in nature. Improving. Creatinine down to 5.66 today. No hydronephrosis noted on renal ultrasound. #2. Chronic kidney disease stage 4-5 with baseline GFR about 15. Etiology is likely nephrosclerosis. #3. Severe metabolic acidosis secondary to acute kidney injury. #4. Hyperkalemia secondary to acute kidney injury and metabolic acidosis. #5. 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 Cardiology following. NICO scheduled later this week. #6. Anemia of chronic kidney disease. Iron replete. Plan: Increase oral sodium bicarbonate to 1300 mg twice daily. Decrease normal saline to be run at 50 mL an hour. Avoid nephrotoxic agents and hypotensive episodes. Repeat electrolytes in the morning. Low potassium diet. No urgent need for renal replacement therapy at this time. He will need to follow-up as an outpatient within 1 week of discharge to start the process of renal replacement therapy. I did briefly discuss peritoneal dialysis with him as well.
[2016-06-29] MEDS ORDERED: SODIUM BICARB 8.4% 50 ML SYR (1 MEQ/ML) IV STA ×2 (09:19→23:30)
[2016-06-29] MEDS: METOPROLOL TARTRATE 25 MG TAB PO SCH ×2 (09:41→19:59)
[2016-06-29] MEDS: ATORVASTATIN 80 MG TAB PO SCH (09:41)
[2016-06-29] MEDS: amLODIPine 5 MG TAB PO SCH (09:41)
[2016-06-29] MEDS: PANTOPRAZOLE 40 MG TABLET PO SCH (09:41)
[2016-06-29] MEDS: ASPIRIN 325 MG TAB PO SCH (09:41)
--- NOTE | 2016-06-29 12:35 | P.PN ---
Subjective Principal diagnosis: Chest pain This is a pleasant 65-year-old -[place] gentleman with a past medical history significant for hypertension, dyslipidemia, and chronic kidney disease, was admitted to the hospital after he fell. We get involved in the care of the patient for further evaluation of chest discomfort and abnormal cardiac enzymes. The patient was seen and evaluated by Dr. Dr. [place] who recommended medical treatment only because the patient's cardiac enzymes were not consistent with acute coronary event. I'll follow-up with him today he denies having any chest pain or discomfort. He stated that he had some chest discomfort yesterday but it was mild in intensity. Please note that the EKG did not show any ischemic changes and showed sinus rhythm. He underwent an echo which showed right atrial mass consistent with possible myxoma. The patient will need to have a NICO in the next few days. Objective - Vital Signs Vital signs: Vital Signs Temp 97.3 F L 06/29/16 09:25 Pulse 68 06/29/16 09:25 Resp 16 06/29/16 09:25 BP 137/72 06/29/16 09:25 Pulse Ox 100 06/29/16 09:25 Intake & Output 06/28/16 06/29/16 06/29/16 18:59 06:59 18:59 Intake Total 960 540 180 Output Total 1000 1150 400 Balance -40 -610 -220 Weight 60.2 kg Intake: IV 600 300 Sodium Chloride 0.9% 1, 600 300 000 ml @ 75 mls/hr IV . [id number] [facility] Rx#:[id number] Oral 360 240 180 Output: Urine 1000 1150 400 Other: Voiding Method Urinal Urinal Urinal # Voids 2 1 - Constitutional General appearance: Present: no acute distress - Respiratory Respiratory: bilateral: CTA - Cardiovascular Rhythm: regular Heart sounds: normal: S1, S2 - Labs CBC & Chem 7: 06/29/16 05:31 06/29/16 07:51 Labs: Abnormal Lab Results - Last 24 Hours (Table) 06/29/16 Range/Units 07:51 Potassium 5.7 H (3.5-5.1) mmol/L Carbon Dioxide 17 L (22-30) mmol/L BUN 90 H* (9-20) mg/dL Creatinine 5.66 H* (0.66-1.25) mg/dL Assessment and Plan Plan: Assessment #1 status post fall #2 chronic kidney disease #3 systemic hypertension #4 dyslipidemia #5 atypical chest discomfort Plan #1 NCIO to be performed in the next few days #2 the patient will need to have a stress test as an outpatient to rule out severe underlying CAD
[2016-06-29] MEDS: SODIUM BICARBONATE TAB 650 MG TAB PO SCH (19:59)
[2016-06-29] MEDS ORDERED: INSULIN REGULAR 100 UNIT/ML VIAL IV ONE (23:32)
[2016-06-29] MEDS ORDERED: ALBUTEROL NEB (CONC) 2.5 MG/0.5 ML INHALATION STA (23:42)
[2016-06-29] MEDS ORDERED: DEXTROSE 50%-WATER 50 ML SYRINGE IVP STA (23:47)
[2016-06-30] MEDS: HYDROcodone/APAP 5-325MG 1 EACH TAB PO PRN ×6 (00:10→22:54)
[2016-06-30] MEDS: SODIUM CHLORIDE 0.9% 1,000 ML IV SCH (00:10)
[2016-06-30] MEDS: SODIUM BICARBONATE TAB 650 MG TAB PO SCH ×3 (00:29→20:20)
[2016-06-30 03:20] LABS: Potassium 5.2 mmol/L (3.5-5.1)
[2016-06-30] MEDS: HYDROmorphone 1 MG/ML 1 ML SYRINGE IVP PRN ×4 (07:58→20:23)
[2016-06-30] MEDS: ATORVASTATIN 80 MG TAB PO SCH (07:59)
[2016-06-30] MEDS: METOPROLOL TARTRATE 25 MG TAB PO SCH ×2 (07:59→20:20)
[2016-06-30] MEDS: amLODIPine 5 MG TAB PO SCH (07:59)
[2016-06-30] MEDS: ASPIRIN 325 MG TAB PO SCH (07:59)
[2016-06-30] MEDS: PANTOPRAZOLE 40 MG TABLET PO SCH (08:04)
--- NOTE | 2016-06-30 11:36 | PN ---
Patient is a 65-year-old, admitted after a fall and patient has noncardiac chest pain. Patient also has an acute kidney injury and chronic kidney disease stage V. Patient's kidney function is proved with gentle hydration. Patient also has possibility of left atrial myxoma for which patient will need a NICO tomorrow. REVIEW OF SYSTEMS: CARDIOVASCULAR: No chest pain, no orthopnea, no PND, no palpitations. PULMONARY: Denied any shortness of breath. No cough or hemoptysis. GASTROINTESTINAL: No diarrhea, nausea or vomiting. No abdominal pain. Normoactive bowel sounds. NEUROLOGIC: No headaches, no weakness, no numbness. Medications were reviewed. No changes in medications were made today. PHYSICAL EXAMINATION: VITAL SIGNS: Temperature 97.3, pulse of 65, respiratory rate of 16, blood pressure 130/82, saturating at 100% on room air. GENERAL: The patient is alert and oriented x3, not in any acute distress. Well developed, well nourished. HEENT: Pupils are round and equally reacting to light. EOMI. No scleral icterus. No conjunctival pallor. Normocephalic, atraumatic. No pharyngeal erythema. No thyromegaly. CARDIOVASCULAR: S1 and S2 present. No murmurs, rubs, or gallops. PULMONARY: Chest is clear to auscultation, no wheezing or crackles. ABDOMEN: Soft, nontender, nondistended, normoactive bowel sounds. No palpable organomegaly. MUSCULOSKELETAL: No joint swelling or deformity. EXTREMITIES: No cyanosis, clubbing, or pedal edema. NEUROLOGICAL: Gross neurological examination did not reveal any focal deficits. SKIN: No rashes. SKIN: No rashes. LABORATORY DATA: CBC and basic metabolic profile is abnormal for 5.7 hemoglobin, serum bicarbonate is 17. Along with oral bicarbonate patient is getting a couple IV bicarbonate infusions and a dose of Kayexalate. ASSESSMENT AND PLAN: 1. Acute renal failure. Patient has complaints of prerenal azotemia or acute tubular necrosis, gentle hydration. Patient does have good urine output. 2. ( ) renal dysfunction. Non-anion gap metabolic acidosis with uremia from renal failure. 3. Chronic kidney disease stage V secondary to diabetic nephropathy. 4. Chest pain, appears to be noncardiac. No further intervention at this point of time from Cardiology perspective. 5. Anemia of chronic kidney disease. 6. Hypertension. PLAN: As mentioned in the interval history.
[2016-06-30] MEDS ORDERED: SODIUM POLYSTYRENE SULFONATE 15 GM/60 ML BOTTLE PO STA (14:26)
[2016-06-30 14:44] VITALS: BMI 21.5
--- NOTE | 2016-06-30 16:23 | P.PN ---
Subjective Principal diagnosis: Acute renal failure This is a pleasant 65-year-old -[place] gentleman with a past medical history significant for hypertension, dyslipidemia, and chronic kidney disease, was admitted to the hospital after he fell. We get involved in the care of the patient for further evaluation of chest discomfort and abnormal cardiac enzymes. The patient was seen and evaluated by Dr. Dr. Ireland who recommended medical treatment only because the patient's cardiac enzymes were not consistent with acute coronary event. I'll follow-up with him today he denies having any chest pain or discomfort. Patient underwent an echo which revealed a right atrial mass consistent with possible myxoma he will be scheduled to undergo a NICO tomorrow by Dr. Ireland. The risks and the benefits were explained to the patient in detail. Creatinine today 5.9, potassium 5.6. Objective - Vital Signs Vital signs: Vital Signs Temp 98.1 F 06/30/16 16:00 Pulse 72 06/30/16 16:00 Resp 16 06/30/16 16:00 BP 120/62 06/30/16 16:00 Pulse Ox 98 06/30/16 16:00 Intake & Output 06/29/16 06/30/16 06/30/16 18:59 06:59 18:59 Intake Total 580 1740 100 Output Total 800 350 350 Balance -220 1390 -250 Weight 62.5 kg 62.5 kg Intake: IV 400 Sodium Chloride 0.9% 1, 400 000 ml @ 50 mls/hr IV . Q20H [facility] Rx#:[id number] Oral 180 1740 100 Output: Urine 800 350 350 Other: Voiding Method Urinal Urinal # Voids 1 2 1 # Bowel Movements 1 1 - Exam GENERAL EXAM: Patient is alert and oriented and doesn't appear to be in any acute distress HEENT: Normocephalic. Normal reaction of pupils, equal size, normal range of extraocular motion. No erythema or exudates in the throat. NECK: No masses, no nuchal rigidity. CHEST: No chest wall deformity. LUNGS: Equal air entry with no crackles or wheeze. HEART: S1 and S2 normal with no audible mumurs or gallops. Regular rhythm, no pericardial rub heard ABDOMEN: No hepatosplenomegaly, normal bowel sounds, no guarding or rigidity. SKIN: No rashes CENTRAL NERVOUS SYSTEM: No focal deficits. EXTREMITIES: No cyanosis, clubbing or edema. - Labs CBC & Chem 7: 06/29/16 05:31 06/30/16 05:45 Labs: Abnormal Lab Results - Last 24 Hours (Table) 06/29/16 06/30/16 06/30/16 Range/Units 19:37 02:50 05:45 Sodium 135 L (137-145) mmol/L Potassium 6.1 H 5.2 H 5.6 H (3.5-5.1) mmol/L Carbon Dioxide 21 L (22-30) mmol/L BUN 93 H* (9-20) mg/dL Creatinine 5.90 H* (0.66-1.25) mg/dL Calcium 8.0 L (8.4-10.2) mg/dL Assessment and Plan (1) Chronic renal failure Status: Acute (2) HTN (hypertension) Status: Acute (3) Anemia Status: Acute (4) Atrial myxoma Status: Acute (5) Hyperkalemia Status: Acute (6) Hypertension Status: Acute (7) Renal failure, acute Status: Acute Plan: Echocardiogram with Doppler study revealed a mobile mass near the mitral valve suspicious for possible myxoma, for this reason patient is scheduled to undergo a NICO tomorrow. The risks and the benefits were explained to the patient in detail, this will be performed by Dr. Ireland tomorrow. DNP note has been reviewed, I agree with a documented findings and plan of care. Patient was seen and examined.
--- NOTE | 2016-06-30 17:38 | P.PN ---
Subjective This is a 65-year-old male known with chronic kidney disease stage Lthat his GFR was approximately 50 mL per minute. He came in because of a accidental fall. He is able to walk now without any great difficulty but is using a walker. Denies any dizziness good appetite no shortness of breath no fever chills urinary habits are unremarkable. Supposedly in the past she was on dialysis at least once. Other problems during his admission were hyperkalemia that is now controlled, also an ultrasound shows unequal kidney size 9.5 cm right and 7.9; left possibility of renovascular disease is considered Objective - Vital Signs Vital signs: Vital Signs Temp 98.1 F 06/30/16 16:00 Pulse 72 06/30/16 16:00 Resp 16 06/30/16 16:00 BP 120/62 06/30/16 16:00 Pulse Ox 98 06/30/16 16:00 Intake & Output 06/29/16 06/30/16 06/30/16 18:59 06:59 18:59 Intake Total 580 1740 100 Output Total 800 350 350 Balance -220 1390 -250 Weight 62.5 kg 62.5 kg Intake: IV 400 Sodium Chloride 0.9% 1, 400 000 ml @ 50 mls/hr IV . Q20H [facility] Rx#:[id number] Oral 180 1740 100 Output: Urine 800 350 350 Other: Voiding Method Urinal Urinal # Voids 1 2 1 # Bowel Movements 1 1 On examination is walking the walk corridors. Is awake alert oriented comfortable There is no JVP lymphadenopathy thyromegaly neck is supple no facial asymmetry Lungs clear to auscultation percussion good air entry bilaterally Heart sounds are unremarkable for any murmur rub gallop Abdomen soft nontender no organomegaly status masses Extremity exam was no edema Neuro logically awake alert oriented no focal motor deficit - Labs CBC & Chem 7: 06/29/16 05:31 06/30/16 05:45 Labs: Abnormal Lab Results - Last 24 Hours (Table) 06/29/16 06/30/16 06/30/16 Range/Units 19:37 02:50 05:45 Sodium 135 L (137-145) mmol/L Potassium 6.1 H 5.2 H 5.6 H (3.5-5.1) mmol/L Carbon Dioxide 21 L (22-30) mmol/L BUN 93 H* (9-20) mg/dL Creatinine 5.90 H* (0.66-1.25) mg/dL Calcium 8.0 L (8.4-10.2) mg/dL Assessment and Plan Plan: Impression. 1. Chronic kidney disease secondary to nephrosclerosis with unequal kidney size possibility of renovascular disease with 9.5; and 7.9 cm right and left kidney based on ultrasound. Baseline creatinine supposedly 5-6 in the very low GFR was 50 per minute. He follows up with motor overhauler in [facility]. He would like to be here and would like to be followed up here. 2. Hyperkalemia secondary to severe acute kidney injury and chronic kidney disease resolved with bicarbonate. Potassium remains slightly high at 5.6 3. Slightly high phosphorus at 6 as of 06/28/2016 2 days ago. 4. Anemia with hemoglobin of 9.9 nearly at target. Recommendation. May DC IV fluid. Will maintain same medications. He will need to have vascular consult regarding possible axis surgery for his dialysis as well as explore CAPD as an outpatient We'll start him on Renvela 800 3 times a day
--- NOTE | 2016-06-30 20:54 | PN ---
Patient is a 65-year-old admitted after a fall. Found to have noncardiac chest pain and patient is also found to have left atrial myxoma for which patient is undergoing NICO tomorrow. Patient has acute on chronic kidney disease. Patient's potassium is elevated. We will give him a dose of Kayexalate. REVIEW OF SYSTEMS: CARDIOVASCULAR: No chest pain, no orthopnea, no PND, no palpitations. PULMONARY: Denied any shortness of breath. No cough or hemoptysis. GASTROINTESTINAL: No diarrhea, nausea or vomiting. No abdominal pain. Normoactive bowel sounds. NEUROLOGIC: No headaches, no weakness, no numbness. Medications were reviewed. PHYSICAL EXAMINATION: VITAL SIGNS: Temperature 98.1, pulse of 72, respiratory rate of 16, blood pressure 120/62, saturating at 99% on room air. GENERAL: The patient is alert and oriented x3, not in any acute distress. Well developed, well nourished. HEENT: Pupils are round and equally reacting to light. EOMI. No scleral icterus. No conjunctival pallor. Normocephalic, atraumatic. No pharyngeal erythema. No thyromegaly. CARDIOVASCULAR: S1 and S2 present. No murmurs, rubs, or gallops. PULMONARY: Chest is clear to auscultation, no wheezing or crackles. ABDOMEN: Soft, nontender, nondistended, normoactive bowel sounds. No palpable organomegaly. MUSCULOSKELETAL: No joint swelling or deformity. EXTREMITIES: No cyanosis, clubbing, or pedal edema. NEUROLOGICAL: Gross neurological examination did not reveal any focal deficits. SKIN: No rashes. LABORATORY DATA: CBC, CMP are abnormal for elevated WBC count, basic metabolic profile is abnormal for sodium of 135, potassium 5.6, Kayexalate as mentioned above. BUN 93, creatinine of 5.9. ASSESSMENT AND PLAN: 1. ( ) acute renal failure with component of prerenal azotemia and acute tubular necrosis. Continue with gentle hydration. Patient has chronic kidney disease stage V secondary to diabetic nephropathy. 2. Anion gap metabolic acidosis from uremia. 3. Chest pain, appears to be noncardiac. 4. Possibility of left atrial myxoma for which the patient is undergo NICO for confirmation. 5. Hypertension. 6. Anemia of chronic kidney disease. 7. Hyperkalemia due to acute renal failure. 8. Kayexalate, continue with today IV fluids and monitor kidney function. The patient hyperkalemia continues to be resistant. The patient may need to be initiated on hemodialysis at the time.
[2016-07-01] MEDS: HYDROmorphone 1 MG/ML 1 ML SYRINGE IVP PRN ×4 (04:36→20:30)
[2016-07-01 06:28] LABS: CH 30.3; CHCM 31.5; HCT 29.8 % (39.0-53.0); HDW 2.84; HGB 9.3 gm/dL (13.0-17.5); Hypochromasia Slight; MCH 30.3 pg (25.0-35.0); MCHC 31.3 g/dL (31.0-37.0); MCV 96.7 fL (80.0-100.0); Mean Platelet Volume 6.7; RBC 3.08 m/uL (4.30-5.90); RDW 15.1 % (11.5-15.5); WBC 4.6 k/uL (3.8-10.6)
[2016-07-01 06:47] LABS: Calcium 8.2 mg/dL (8.4-10.2); Potassium 6.1 mmol/L (3.5-5.1)
[2016-07-01] MEDS ORDERED: DEXTROSE 50%-WATER 50 ML SYRINGE IVP STA (10:59)
[2016-07-01] MEDS ORDERED: INSULIN NPH 300 UNIT/3 ML VIAL SQ ONE (10:59)
[2016-07-01] MEDS ORDERED: INSULIN REGULAR 100 UNIT/ML VIAL IV ONE (11:00)
--- NOTE | 2016-07-01 11:08 | P.PN ---
Subjective This is a 65-year-old male known with chronic kidney disease stage 5 based on patient's knowledge of his GFR being 15 mL per minute. He follows up with a zygl[employer] technician in [place] where he came from. He came in because of a accidental fall. He is able to walk now without any great difficulty but is using a walker. Denies any dizziness good appetite no shortness of breath no fever chills urinary habits are unremarkable. Since yesterday's potassium is improved to go up in spite of being treated. He is not on any medication that can explain this, ultrasound shows no hydronephrosis. He does not have any symptoms suggestive prostatism. He is on a 2 g potassium diet. His blood sugars are normal therefore his hyperkalemia secondary to severe endstage renal failure. Creatinine continues to go up. Further on echocardiogram 8 tricuspid valve possible myxoma is noted and he is scheduled to undergo NICO today. His somewhat upset about not being allowed to eat pending the past. Not sure whether NICO would be performed with a potassium 6.1 Supposedly in the past she was on dialysis at least once. an ultrasound shows unequal kidney size 9.5 cm right and 7.9; left possibility of renovascular disease is considered Objective - Vital Signs Vital signs: Vital Signs Temp 98.8 F 07/01/16 08:00 Pulse 56 L 07/01/16 08:00 Resp 16 07/01/16 08:00 BP 129/66 07/01/16 08:00 Pulse Ox 98 07/01/16 08:00 Intake & Output 06/30/16 07/01/16 07/01/16 18:59 06:59 18:59 Intake Total 336 200 Output Total 350 350 Balance -14 -150 Weight 62.5 kg 63 kg Intake: Oral 336 200 Output: Urine 350 350 Other: Voiding Method Urinal Urinal # Voids 1 1 # Bowel Movements 1 On examination is awake alert oriented comfortable. HEENT exam no JVP neck is supple no facial asymmetry. Lungs are clear to auscultation percussion good air entry bilaterally. Heart sounds are unremarkable for any murmur rub gallop. As mentioned an echocardiogram shows possible tricuspid valve vegetation. Abdomen soft nontender no organomegaly no bladder distention tension clinically noted. Extremity exam was no edema Neurologically awake alert oriented no asterixis. No focal motor deficit. Able to walk. - Labs CBC & Chem 7: 01/10/17 05:49 07/01/16 05:49 Labs: Abnormal Lab Results - Last 24 Hours (Table) 07/01/16 07/01/16 Range/Units 05:49 05:49 RBC 3.08 L (4.30-5.90) m/uL Hgb 9.3 L (13.0-17.5) gm/dL Hct 29.8 L (39.0-53.0) % Potassium 6.1 H (3.5-5.1) mmol/L Chloride 108 H (98-107) mmol/L Carbon Dioxide 20 L (22-30) mmol/L BUN 94 H* (9-20) mg/dL Creatinine 6.50 H* (0.66-1.25) mg/dL Calcium 8.2 L (8.4-10.2) mg/dL Assessment and Plan Plan: Impression. 1. Chronic kidney disease secondary to nephrosclerosis with unequal kidney size possibility of renovascular disease with 9.5; and 7.9 cm right and left kidney based on ultrasound. Baseline creatinine supposedly 5-6 in the very low GFR was 15 per minute, based on patient's knowledge previous lab tests in [place]. He follows up with zyglo technician in [facility]. He would like to be here and would like to be followed up here. Creatinine continues to worsen again. He came in with a creatinine of 8.1 improved to 5.6 and then has gone up to 6.5 this morning. There is no clear-cut reason for this change 2. Hyperkalemia secondary to severe acute kidney injury and chronic kidney disease, recurrence of hyperkalemia with potassium going up to 6.1 this morning blood sugar is 82 creatinine is 6.5 up again. 3. Slightly high phosphorus at 6 as of 06/28/2016 2 days ago. 4. Anemia with hemoglobin of 9.9 and today is down to 9.3, slightly lower target. Recommendation. We'll resume IV fluids to improve his potassium loss in the urine with normal saline and Lasix. We'll also give him D50 one amp and 8 units of Humulin or. Make sure he is on 2 g potassium diet. Also will get postvoid residual by bladder scan to ensure there is no alternative explanation for his hyperkalemia Will maintain same medications. He will need to have vascular consult regarding possible axis surgery for his dialysis as well as explore CAPD as an outpatient We'll continue on Renvela 800 3 times a day I talked to him about need for dialysis this admission and is refusing. He is aware that this is a risk off possible and severe complications at best. Had recommended that he consider going on hemodialysis for right now
[2016-07-01] MEDS ORDERED: fentaNYL (PF) 50 MCG/ML 2 ML AMP ONE (11:18)
[2016-07-01] MEDS ORDERED: MIDAZOLAM 2 MG/2 ML VIAL ONE (11:18)
[2016-07-01] MEDS ORDERED: BENZOCAINE SPRAY 100 APPLIC/CAN MUCOUS MEM ONE ×2 (11:31→11:50)
[2016-07-01] MEDS: MIDAZOLAM 2 MG/2 ML VIAL IVP ONE ×2 (11:43→11:50)
[2016-07-01] MEDS ORDERED: fentaNYL (PF) 50 MCG/ML 2 ML AMP IV ONE (11:43)
[2016-07-01] MEDS ORDERED: SODIUM CHLORIDE 0.9% 1,000 ML IV ONE (11:45)
--- NOTE | 2016-07-01 12:10 | P.PCN ---
Date of Procedure: 07/01/16 Preoperative Diagnosis: Possible mass in the right atrium suggestive of myxoma Postoperative Diagnosis: Thickening of the mitral annulus but no definite distinct mass appreciated on this study Procedure(s) Performed: NICO Description of Procedure: INDICATION : Assessment of the masslike lesion in the right atrium near the tricuspid annulus. CONSENT: Verbal consent was obtained from patient PROCEDURE: This patient is a 65-year-old gentleman with history of chronic renal failure who was admitted to the hospital with weakness. A transthoracic echocardiogram was suggestive of a mass in the right atrium near the tricuspid annulus. A NICO examination is recommended to rule out cardiac mass and myxoma. Patient was brought to the lab in a fasting state. He was given IV Versed 2 mg and fentanyl for sedation. The throat was sprayed with Hurricaine. A lubricated Omni probe was introduced into the oropharynx and was advanced into the esophagus. Attempts to advance to the stomach were met with resistance and twitching. Views were obtained from esophagus only. No immediate complications. Today, M-mode and color Doppler study was performed. No saline bubble injection was performed FINDINGS: The tricuspid annulus is thickened and calcified. No distinct mass could be identified either in the right atrium or right ventricle. It appears that the masslike lesion seen on the transthoracic echo most probably is an artifact from thickened tricuspid annulus and no significant valvular regurgitation is noted. The mitral valve appears to be normal with mild regurgitation. Left atrial appendage is free of any clot. Interatrial septum appeared intact. Left ventricular function appeared to be fair IMPRESSION: #1 Thickened tricuspid annulus. #2. No definite distinct masses noted in the right atrium and right ventricle #3 mild mitral regurgitation #4 No clot in the left atrial appendage. #5 left ventricular function appear to be fair. PLAN: Continue medical therapy. Repeat echo Cardigan should be done 6 months to reassess the area of interest.
[2016-07-01] MEDS ORDERED: SODIUM CHLORIDE 0.9% 1,000 ML IV SCH (12:15)
[2016-07-01] MEDS: SODIUM CHLORIDE 0.9% 1,000 ML IV SCH ×2 (12:38→20:34)
[2016-07-01] MEDS: PANTOPRAZOLE 40 MG TABLET PO SCH (12:40)
[2016-07-01] MEDS: amLODIPine 5 MG TAB PO SCH (12:40)
[2016-07-01] MEDS: ASPIRIN 325 MG TAB PO SCH (12:40)
[2016-07-01] MEDS: ATORVASTATIN 80 MG TAB PO SCH (12:40)
[2016-07-01] MEDS: SODIUM BICARBONATE TAB 650 MG TAB PO SCH ×2 (12:41→20:29)
[2016-07-01] MEDS: METOPROLOL TARTRATE 25 MG TAB PO SCH ×2 (12:41→20:29)
[2016-07-01] MEDS: HYDROcodone/APAP 5-325MG 1 EACH TAB PO PRN ×3 (12:51→22:12)
--- NOTE | 2016-07-01 15:16 | P.GSCN ---
History of Present Illness History of present illness: 65-year-old male I was consulted for placement of dialysis catheter, patient has history of chronic renal failure and his creatinine is 8.1 and GFR is 15 I have discussed with him regarding dialysis catheter and at this point he does not want to go for any dialysis, according to patient he wants to go to the [facility] and wants to go for kidney transplant Medical history history of hypertension, history of pancreatitis, Personal history history of depression and bipolar disorder history of smoker continue to smoke Neck examination neck is supple no bruit appreciated chest is clear patient has been seen by cardiology for possible mass in the tricuspid area possible myxoma Abdomen soft nontender vascular femoral pulses are palpable bilateral Acute chronic renal failure History of hypertension and history of depression bipolar disorder I have discussed in detail with the patient about dialysis catheter but patient is refusing if patient is ready we will more than happy to take care of and thank you( Past Medical History Past Medical History: Hypertension Additional Past Medical History / Comment(s): pancreatitis History of Any Multi-Drug Resistant Organisms: None Reported Past Surgical History: Orthopedic Surgery Past Psychological History: Bipolar, Depression Smoking Status: Current every day smoker Past Alcohol Use History: Occasional Past Drug Use History: None Reported Medications and Allergies Home Medications Medication Instructions Recorded Confirmed Type amLODIPine [Norvasc] 5 mg PO DAILY 06/27/16 06/27/16 History Allergies Allergy/AdvReac Type Severity Reaction Status Date / Time aspirin Allergy Nausea & Verified 06/27/16 01:50 Vomiting Surgical - Exam Vital Signs Temp Pulse Resp BP Pulse Ox 97.6 F 107 H 20 148/82 99 06/27/16 01:45 06/27/16 01:45 06/27/16 01:45 06/27/16 01:45 06/27/16 01:45 Results - Labs 07/01/16 05:49 07/01/16 05:49 Abnormal Lab Results - Last 24 Hours (Table) 07/01/16 07/01/16 Range/Units 05:49 05:49 RBC 3.08 L (4.30-5.90) m/uL Hgb 9.3 L (13.0-17.5) gm/dL Hct 29.8 L (39.0-53.0) % Potassium 6.1 H (3.5-5.1) mmol/L Chloride 108 H (98-107) mmol/L Carbon Dioxide 20 L (22-30) mmol/L BUN 94 H* (9-20) mg/dL Creatinine 6.50 H* (0.66-1.25) mg/dL Calcium 8.2 L (8.4-10.2) mg/dL Diabetes panel 07/01/16 Range/Units 05:49 Sodium 138 (137-145) mmol/L Potassium 6.1 H (3.5-5.1) mmol/L Chloride 108 H (98-107) mmol/L Carbon Dioxide 20 L (22-30) mmol/L BUN 94 H* (9-20) mg/dL Creatinine 6.50 H* (0.66-1.25) mg/dL Glucose 82 (74-99) mg/dL Calcium 8.2 L (8.4-10.2) mg/dL Calcium panel 07/01/16 Range/Units 05:49 Calcium 8.2 L (8.4-10.2) mg/dL Pituitary panel 07/01/16 Range/Units 05:49 Sodium 138 (137-145) mmol/L Potassium 6.1 H (3.5-5.1) mmol/L Chloride 108 H (98-107) mmol/L Carbon Dioxide 20 L (22-30) mmol/L BUN 94 H* (9-20) mg/dL Creatinine 6.50 H* (0.66-1.25) mg/dL Glucose 82 (74-99) mg/dL Calcium 8.2 L (8.4-10.2) mg/dL Adrenal panel 07/01/16 Range/Units 05:49 Sodium 138 (137-145) mmol/L Potassium 6.1 H (3.5-5.1) mmol/L Chloride 108 H (98-107) mmol/L Carbon Dioxide 20 L (22-30) mmol/L BUN 94 H* (9-20) mg/dL Creatinine 6.50 H* (0.66-1.25) mg/dL Glucose 82 (74-99) mg/dL Calcium 8.2 L (8.4-10.2) mg/dL
[2016-07-01] MEDS: FUROSEMIDE 10 MG/ML 2 ML VIAL IV SCH (20:30)
--- NOTE | 2016-07-01 23:27 | PN ---
Patient is a 65-year-old gentleman admitted after a fall. Patient has non-cardiac chest pain. On the echocardiogram there was a concern about left atrial myxoma, for which patient underwent a NICO which did not reveal any left atrial myxoma. His main issue now is continued elevation of potassium because of his chronic kidney disease, stage V, which is an indication for dialysis. Extensive discussion was done by Nephrology as well as by me, and I sat with the patient and discussed the risks of not going for dialysis. Patient is declining dialysis no matter what. Patient understands the risk is . We will go ahead and give him a dose of Kayexalate. Patient's potassium is 6.4 today. REVIEW OF SYSTEMS: CARDIOVASCULAR: No chest pain, no orthopnea, no PND, no palpitations. PULMONARY: Denied any shortness of breath. No cough or hemoptysis. GASTROINTESTINAL: No diarrhea, nausea or vomiting. No abdominal pain. Normoactive bowel sounds. NEUROLOGIC: No headaches, no weakness, no numbness. Medications were reviewed. PHYSICAL EXAMINATION: VITAL SIGNS: Temperature 97.7, pulse of 60, respiratory rate of 16. Blood pressure is 130/76. Saturating at 95% on room air. GENERAL: The patient is alert and oriented x3, not in any acute distress. Well developed, well nourished. HEENT: Pupils are round and equally reacting to light. EOMI. No scleral icterus. No conjunctival pallor. Normocephalic, atraumatic. No pharyngeal erythema. No thyromegaly. CARDIOVASCULAR: S1 and S2 present. No murmurs, rubs, or gallops. PULMONARY: Chest is clear to auscultation, no wheezing or crackles. ABDOMEN: Soft, nontender, nondistended, normoactive bowel sounds. No palpable organomegaly. MUSCULOSKELETAL: No joint swelling or deformity. EXTREMITIES: No cyanosis, clubbing, or pedal edema. NEUROLOGICAL: Gross neurological examination did not reveal any focal deficits. SKIN: No rashes. LABORATORY DATA: CBC and comprehensive metabolic profile are abnormal for a low hemoglobin of 9.3 secondary to anemia of chronic kidney disease, potassium of 6.5, chloride of 108, BUN of 94, creatinine of 6.5, which has gone up compared to yesterday. ASSESSMENT AND PLAN: 1. Chronic kidney disease, stage V, possibly end-stage renal disease, with a component of prerenal azotemia. Patient is declining dialysis, as mentioned above, and for potassium will go ahead and give Kayexalate. 2. Anion gap metabolic acidosis from uremia, for which patient is receiving oral bicarbonate. 3. Chest pain, non-cardiac. 4. Ruled out left atrial myxoma. 5. Hypertension. 6. Anemia of chronic kidney disease. 7. Hyperkalemia related to renal failure. PLAN: As mentioned in the interval history.
[2016-07-02] MEDS: HYDROmorphone 1 MG/ML 1 ML SYRINGE IVP PRN ×4 (00:24→14:58)
[2016-07-02] MEDS: HYDROcodone/APAP 5-325MG 1 EACH TAB PO PRN ×4 (02:21→16:50)
[2016-07-02] MEDS: SODIUM CHLORIDE 0.9% 1,000 ML IV SCH ×2 (04:18→08:42)
[2016-07-02] MEDS: FUROSEMIDE 10 MG/ML 2 ML VIAL IV SCH (08:43)
[2016-07-02] MEDS: amLODIPine 5 MG TAB PO SCH (08:43)
[2016-07-02] MEDS: ATORVASTATIN 80 MG TAB PO SCH (08:43)
[2016-07-02] MEDS: ASPIRIN 325 MG TAB PO SCH (08:43)
[2016-07-02] MEDS: PANTOPRAZOLE 40 MG TABLET PO SCH (08:44)
[2016-07-02] MEDS: METOPROLOL TARTRATE 25 MG TAB PO SCH (08:44)
[2016-07-02] MEDS: SODIUM BICARBONATE TAB 650 MG TAB PO SCH (08:44)
[2016-07-02 11:10] VITALS: TEMP 97.5
[2016-07-02 12:31] LABS: Calcium 9.3 mg/dL (8.4-10.2)
[2016-07-02 12:34] LABS: Potassium 6.9 mmol/L (3.5-5.1)
--- NOTE | 2016-07-02 12:36 | P.PN ---
Subjective Principal diagnosis: Acute renal failure This is a pleasant 65-year-old -[place] gentleman with a past medical history significant for hypertension, dyslipidemia, and chronic kidney disease, was admitted to the hospital after he fell.We get involved in the care of the patient for further evaluation of chest discomfort and abnormal cardiac enzymes. The patient was seen and evaluated by Dr. Dr. Ireland who recommended medical treatment only because the patient's cardiac enzymes were not consistent with acute coronary event.On follow-up with him today he denies having any chest pain or discomfort.Patient underwent an echo which revealed a right atrial mass consistent with possible myxoma, patient underwent a NICO yesterday by Dr. Ireland, which revealed thickening of the mitral annulus with no definite distinct mass appreciated. Patient was seen and examined today , denies any chest pain or difficulty in breathing. From cardiology's perspective, we'll follow this patient with you now on an as-needed basis only, please don't hesitate to call with any questions. Objective - Vital Signs Vital signs: Vital Signs Temp 97.5 F L 07/02/16 08:45 Pulse 70 07/02/16 08:45 Resp 18 07/02/16 08:45 BP 136/76 07/02/16 08:45 Pulse Ox 97 07/02/16 08:45 Intake & Output 07/01/16 07/02/16 07/02/16 18:59 06:59 18:59 Intake Total 670 800 180 Output Total 800 900 Balance -130 -100 180 Weight 62.4 kg Intake: IV 450 Sodium Chloride 0.9% 1, 400 000 ml @ 50 mls/hr IV . Q20H [facility] Rx#:[id number] Intake, IV Titration 800 Amount Sodium Chloride 0.9% 1, 800 000 ml @ 100 mls/hr IV . Q10H [facility] Rx#:[id number] Oral 220 180 Output: Urine 800 900 Other: Voiding Method Urinal Urinal Urinal # Voids 1 # Bowel Movements 2 - Exam GENERAL EXAM: Patient is alert and oriented and doesn't appear to be in any acute distress HEENT: Normocephalic. Normal reaction of pupils, equal size, normal range of extraocular motion. No erythema or exudates in the throat. NECK: No masses, no nuchal rigidity. CHEST: No chest wall deformity. LUNGS: Equal air entry with no crackles or wheeze. HEART: S1 and S2 normal with no audible mumurs or gallops. Regular rhythm, no pericardial rub heard ABDOMEN: No hepatosplenomegaly, normal bowel sounds, no guarding or rigidity. SKIN: No rashes CENTRAL NERVOUS SYSTEM: No focal deficits. EXTREMITIES: No cyanosis, clubbing or edema. - Labs CBC & Chem 7: 07/01/16 05:49 07/01/16 05:49 Assessment and Plan (1) Chronic renal failure Status: Acute (2) HTN (hypertension) Status: Acute (3) Anemia Status: Acute (4) Atrial myxoma Status: Acute (5) Hyperkalemia Status: Acute (6) Hypertension Status: Acute (7) Renal failure, acute Status: Acute Plan: From cardiology's perspective, we'll follow this patient with you now on an as- needed basis only, please don't hesitate to call with any questions. DNP note has been reviewed, I agree with a documented findings and plan of care. Patient was seen and examined.
--- NOTE | 2016-07-02 14:50 | P.PN ---
Subjective This is a 65-year-old male known with chronic kidney disease stage 5 based on patient's knowledge of his GFR being 15 mL per minute. He follows up with a newspaper writer in [place] where he came from. He came in because of a accidental fall. He is able to walk now without any great difficulty but is using a walker. Denies any dizziness good appetite no shortness of breath no fever chills urinary habits are unremarkable. Since admission his potassium the last few days until gone up. He is aware of this being a serious and life-threatening and continues to resist any attempted even talking about dialysis. He states he has been told multiple times that he will for the last 3 years and he has felt very well and would not want to go on dialysis. Unfortunately his potassium is high in spite of being on a potassium restricted diet on IV fluids and Lasix and bicarb orally. Potassium today in fact went up to 6.9 with a creatinine went up from 5.9-6.5 yesterday and 6.3 today. Bicarb is down to 14. He is on sodium bicarb 650 4 times a day but supposedly he is refusing some of his medication. Blood sugars are normal is 91 this morning . Further on echocardiogram tricuspid valve possible myxoma is noted and he had NICO which ruled it out. Supposedly in the past she was on dialysis at least once. an ultrasound shows unequal kidney size 9.5 cm right and 7.9; left possibility of renovascular disease is considered Objective - Vital Signs Vital signs: Vital Signs Temp 97.5 F L 07/02/16 08:45 Pulse 65 07/02/16 12:00 Resp 18 07/02/16 12:00 BP 126/67 07/02/16 12:00 Pulse Ox 97 07/02/16 12:00 Intake & Output 07/01/16 07/02/16 07/02/16 18:59 06:59 18:59 Intake Total 670 800 180 Output Total 800 900 Balance -130 -100 180 Weight 62.4 kg Intake: IV 450 Sodium Chloride 0.9% 1, 400 000 ml @ 50 mls/hr IV . Q20H [facility] Rx#:[id number] Intake, IV Titration 800 Amount Sodium Chloride 0.9% 1, 800 000 ml @ 100 mls/hr IV . Q10H [facility] Rx#:[id number] Oral 220 180 Output: Urine 800 900 Other: Voiding Method Urinal Urinal Urinal # Voids 1 # Bowel Movements 2 On examination is awake alert oriented comfortable. No asterixis noted HEENT exam no JVP neck is supple no facial asymmetry Lungs clear to auscultation percussion good air entry bilaterally. Heart sounds are unremarkable for any murmur rub gallop. Abdomen soft nontender no organomegaly status masses Extremity exam was no edema Awake alert oriented 3 no asterixis. - Labs CBC & Chem 7: 07/01/16 05:49 07/02/16 11:14 Labs: Abnormal Lab Results - Last 24 Hours (Table) 07/02/16 Range/Units 11:14 Sodium 146 H (137-145) mmol/L Potassium 6.9 H* (3.5-5.1) mmol/L Chloride 115 H (98-107) mmol/L Carbon Dioxide 14 L (22-30) mmol/L BUN 107 H* (9-20) mg/dL Creatinine 6.30 H* (0.66-1.25) mg/dL Assessment and Plan Plan: Impression. 1. Chronic kidney disease secondary to nephrosclerosis with unequal kidney size possibility of renovascular disease with 9.5; and 7.9 cm right and left kidney based on ultrasound. Baseline creatinine supposedly 5-6 in the very low GFR was 15 per minute, based on patient's knowledge previous lab tests in [place]. He follows up with newspaper writer in [facility]. He would like to be here and would like to be followed up here. Creatinine continues to worsen again. He came in with a creatinine of 8.1 improved to 5.6 and then has gone up to 6.5 yesterday and 6.3 today, currently on IV fluids, and Lasix to improve his potassium. 2. Hyperkalemia secondary to severe acute kidney injury and chronic kidney disease, recurrence of hyperkalemia with potassium going up to 6.9 from 6.1 this yesterday. This is in spite of the fact that he is on sodium bicarb, Lasix and IV fluids. 3. Slightly high phosphorus at 6 as of 06/28/2016 2 days ago. 4. Anemia with hemoglobin of 9.9 and today is down to 9.3, slightly lower target. Recommendation. Again extensive discussion regarding need for immediate dialysis as his hyperkalemia is not controlled. He is not convinced that he needs dialysis as he sees is symptomatically feeling well for the last 3 years and has been told multiple times that he needs dialysis and he is alive and well even now. I told him that symptoms cannot be relied upon. We will put him on Kayexalate 15 g every 12, sodium bicarb 652 3 times a day, Lasix 20 mg twice a day. Follow-up in the office in 24 hours. Maintain phosphate binders. Complains of back pain he needs to avoid any nonsteroidals. He can take Tylenol , tramadol or some lidocaine patch. We'll continue on Renvela 800 3 times a day The RN was in the room when all the discussions were had and have told her to document his refusal
[2016-07-02] MEDS ORDERED: SODIUM POLYSTYRENE SULFONATE 15 GM/60 ML BOTTLE PO ONE (15:00)
[2016-07-02] MEDS ORDERED: SODIUM BICARBONATE TAB 650 MG TAB PO SCH (16:00)
[2016-07-02 17:01] VITALS: BP 136/72; PULSE 70; RESP 16
[2016-07-02] MEDS ORDERED: SODIUM POLYSTYRENE SULFONATE 15 GM/60 ML BOTTLE PO SCH (21:00)
--- NOTE | 2016-07-02 22:28 | DS ---
DATE OF ADMISSION: 06/27/2016 DATE OF DISCHARGE: 07/02/2016 The patient is a 65 -year-old came in ( ). Echocardiogram there was a concern about ( ), echocardiogram revealed there was a concern about left atrial myxoma for which patient underwent NICO which did not reveal any left atrial myxoma. Patient is a noncardiac chest pain. Patient has chronic kidney disease, Stage V and the patient because of which patient was admitted here. Renal function improved a little but concerns about potassium was never under control. 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 Patient completely declined to get hemodialysis, although his potassium is 6.4 nothing much can be done at this point of time. Dialysis ( ) for that. Patient will be given daily Kayexelate as well as 40 oral b.i.d. of Lasix as per recommendations from Nephrology. The patient although clinically doing well, the patient understands the risk of that, ( ) she does not undergo dialysis and we made a plan to follow up with nephrology in 24 hours as an outpatient and patient is being discharged today. ( ) to home. The patient was seen and examined on the day of discharge. Vital signs stable. PHYSICAL EXAMINATION: GENERAL: The patient is alert and oriented x3, not in any acute distress. Well developed, well nourished. HEENT: Pupils are round and equally reacting to light. EOMI. No scleral icterus. No conjunctival pallor. Normocephalic, atraumatic. No pharyngeal erythema. No thyromegaly. CARDIOVASCULAR: S1 and S2 present. No murmurs, rubs, or gallops. PULMONARY: Chest is clear to auscultation, no wheezing or crackles. ABDOMEN: Soft, nontender, nondistended, normoactive bowel sounds. No palpable organomegaly. MUSCULOSKELETAL: No joint swelling or deformity. EXTREMITIES: No cyanosis, clubbing, or pedal edema. NEUROLOGICAL: Gross neurological examination did not reveal any focal deficits. SKIN: No rashes. FINAL DIAGNOSIS(ES): 1. Chronic kidney disease Stage IV and constant hyperkalemia, which will require hemodialysis. 2. ( ). 3. Chest pain noncardiac ruled out left atrial myxoma. 4. Hypertension. 5. Anemia of chronic kidney disease. 6. Hyperkalemia from renal failure. Please refer to my ( ) the patient will be discharged on cardiac and ( ) renal diet, low potassium diet. We are giving a prescription for daily Kayexelate and Lasix and follow with nephrology in 24 hours, spent greater than 35 minutes in total discharge process.
== END 2016-07-02 17:20 | disposition home or self-care (01) | DRG 682 ==
LOC: EC 01:44 → 6ICU 02:53 → 6SEL 06-28 10:07
PROVIDERS: ADMIT Hospitalist; ATTEND Hospitalist
PROC: B246ZZ4 Ultrasonography of Right and Left Heart, Transesophageal (ICD-10-PCS; principal; 2016-07-01 11:30)
DX: N17.0 Acute kidney failure with tubular necrosis (principal); G93.41 Metabolic encephalopathy; E87.2 Acidosis; I12.0 Hypertensive chronic kidney disease with stage 5 chronic kidney disease or end stage renal disease; R07.9 Chest pain, unspecified; E87.5 Hyperkalemia; E86.0 Dehydration; E11.21 Type 2 diabetes mellitus with diabetic nephropathy; R74.8 Abnormal levels of other serum enzymes; E11.22 Type 2 diabetes mellitus with diabetic chronic kidney disease; N18.6 End stage renal disease; D63.1 Anemia in chronic kidney disease; F31.9 Bipolar disorder, unspecified; E78.5 Hyperlipidemia, unspecified; M54.9 Dorsalgia, unspecified; F17.200 Nicotine dependence, unspecified, uncomplicated; R53.1 Weakness; R00.0 Tachycardia, unspecified; Z99.2 Dependence on renal dialysis; Z91.15 Patient's noncompliance with renal dialysis; Z88.6 Allergy status to analgesic agent; Z87.19 Personal history of other diseases of the digestive system; Z79.899 Other long term (current) drug therapy; W01.0XXA Fall on same level from slipping, tripping and stumbling without subsequent striking against object, initial encounter; Y92.009 Unspecified place in unspecified non-institutional (private) residence as the place of occurrence of the external cause
CPT/HCPCS: 36415; 71020; 72100; 72170; 76770; 80048; 80053; 80061; 81001; 82550; 82553; 82570; 83520; 83540; 83550; 83690; 83735; 84100; 84132; 84300; 84484; 85025; 85027; 85049; 85610; 85730; 87205; 93306; 93312; 93320; 93325; 96361; 96365; 96375; 96376; 99291

== ENCOUNTER 2016-07-11 10:28 | Inpatient (IN) | payer MEDICARE ==
[2016-07-11 10:46] LABS: Glucose,Whole Blood 91 mg/dL (75-99)
--- NOTE | 2016-07-11 10:54 | ED ---
General Adult HPI - General Stated complaint: Altered Mental Time Seen by Provider: 07/11/16 10:42 Source: patient, EMS, RN notes reviewed Mode of arrival: EMS Limitations: no limitations - History of Present Illness Initial comments: Patient is a pleasant 65-year-old male presenting to emergency department with concerns for change in mental status. Patient states he feels fine and does not know why they sent him here. Patient denies change in mental status or confusion. Brother reportedly was concerned that patient does smoke heroin. Patient states she has not smoked heroin in the past month. Patient does answers questions appropriately however is occasionally slow to answer. Patient denies any pain or drug use at this time. No fevers. Patient was reportedly in the hospital recently. Patient states he was in the hospital for chest discomfort. Discharge summary review showing patient found to have end- stage renal disease and refused dialysis. - Related Data Previous Rx's Medication Instructions Recorded Aspirin 81 mg PO DAILY #30 chewable 07/02/16 Atorvastatin Calcium [Lipitor] 20 mg PO HS #30 tab 07/02/16 Furosemide [Lasix] 80 mg PO Q12HR #60 tablet 07/02/16 Sodium Bicarbonate Tab 1,300 mg PO BID #60 tab 07/02/16 Sodium Polystyrene Sulfonate 15 gm PO DAILY #500 ml 07/02/16 [Kayexalate] Allergies Allergy/AdvReac Type Severity Reaction Status Date / Time aspirin Allergy Nausea & Verified 07/11/16 10:57 Vomiting Review of Systems ROS Statement: Those systems with pertinent positive or pertinent negative responses have been documented in the HPI. ROS Other: All systems not noted in ROS Statement are negative. Constitutional: Denies: fever Eyes: Denies: eye pain ENT: Denies: ear pain Respiratory: Denies: cough Cardiovascular: Denies: chest pain Endocrine: Denies: fatigue Gastrointestinal: Denies: abdominal pain Genitourinary: Denies: dysuria Musculoskeletal: Denies: back pain Skin: Denies: rash Neurological: Denies: headache, weakness, confusion Past Medical History Past Medical History: Hypertension Additional Past Medical History / Comment(s): pancreatitis History of Any Multi-Drug Resistant Organisms: None Reported Past Surgical History: Orthopedic Surgery Past Psychological History: Bipolar, Depression Smoking Status: Current every day smoker Past Alcohol Use History: Occasional Past Drug Use History: None Reported General Exam Limitations: no limitations General appearance: alert, in no apparent distress Head exam: Present: atraumatic, normocephalic Eye exam: Present: normal appearance, PERRL, EOMI. Absent: nystagmus ENT exam: Present: normal oropharynx Neck exam: Present: normal inspection Respiratory exam: Present: normal lung sounds bilaterally Cardiovascular Exam: Present: regular rate, normal rhythm GI/Abdominal exam: Present: soft. Absent: tenderness Extremities exam: Present: normal inspection Neurological exam: Present: alert, oriented X3, CN II-XII intact. Absent: motor sensory deficit Expanded Motor strength exam: RUE: 5, LUE: 5, RLE: 5, LLE: 5 Psychiatric exam: Present: normal affect, normal mood Skin exam: Absent: rash Course Vital Signs 07/11/16 07/11/16 07/11/16 10:51 11:27 12:45 Temperature 98.6 F Pulse Rate 101 H 98 96 Respiratory 18 15 18 Rate Blood Pressure 175/87 155/89 165/100 O2 Sat by Pulse 97 100 100 Oximetry EKG Findings - EKG Comments: EKG Findings:: Normal sinus rhythm at 96. Normal intervals. Normal axis. Septal Q waves. No acute ST change. Medical Decision Making - Medical Decision Making Patient has worsening renal failure and is now acidotic with continuing hyperkalemia. Long discussion had with patient and patient is now agreeable for admission and repeat nephrology evaluation. Patient is aware that he may in the near future if he does not have his kidney failure dressed. Case was discussed in detail with Dr. Mark, who will admit. - Lab Data Result diagrams: 07/11/16 11:45 07/11/16 11:45 Lab Results 07/11/16 07/11/16 07/11/16 Range/Units 10:45 11:17 11:45 WBC 7.8 (3.8-10.6) k/uL RBC 3.67 L (4.30-5.90) m/uL Hgb 10.6 L (13.0-17.5) gm/dL Hct 36.8 L (39.0-53.0) % MCV 100.5 H (80.0-100.0) fL MCH 29.0 (25.0-35.0) pg MCHC 28.9 L (31.0-37.0) g/dL RDW 15.1 (11.5-15.5) % Plt Count 328 (150-450) k/uL Neutrophils % 78 % Lymphocytes % 14 % Monocytes % 4 % Eosinophils % 3 % Basophils % 1 % Neutrophils # 6.1 (1.3-7.7) k/uL Lymphocytes # 1.1 (1.0-4.8) k/uL Monocytes # 0.3 (0-1.0) k/uL Eosinophils # 0.2 (0-0.7) k/uL Basophils # 0.1 (0-0.2) k/uL Hypochromasia Marked Macrocytosis Slight Sodium (137-145) mmol/L Potassium (3.5-5.1) mmol/L Chloride (98-107) mmol/L Carbon Dioxide (22-30) mmol/L Anion Gap mmol/L BUN (9-20) mg/dL Creatinine (0.66-1.25) mg/dL Est GFR (MDRD) Af Amer (>60 ml/min/1.73 sqM) Est GFR (MDRD) Non-Af (>60 ml/min/1.73 sqM) Glucose (74-99) mg/dL POC Glucose (mg/dL) 91 96 (75-99) mg/dL POC Glu English Instructor Wilberto Hong Brittany, A Calcium (8.4-10.2) mg/dL Total Bilirubin (0.2-1.3) mg/dL AST (17-59) U/L ALT (21-72) U/L Alkaline Phosphatase (38-126) U/L Ammonia (<30) umol/L Total Creatine Kinase (55-170) U/L CK-MB (CK-2) (0.0-2.4) ng/mL CK-MB (CK-2) Rel Index Troponin I (0.000-0.034) ng/mL Total Protein (6.3-8.2) g/dL Albumin (3.5-5.0) g/dL 07/11/16 07/11/16 07/11/16 Range/Units 11:45 11:45 11:45 WBC (3.8-10.6) k/uL RBC (4.30-5.90) m/uL Hgb (13.0-17.5) gm/dL Hct (39.0-53.0) % MCV (80.0-100.0) fL MCH (25.0-35.0) pg MCHC (31.0-37.0) g/dL RDW (11.5-15.5) % Plt Count (150-450) k/uL Neutrophils % % Lymphocytes % % Monocytes % % Eosinophils % % Basophils % % Neutrophils # (1.3-7.7) k/uL Lymphocytes # (1.0-4.8) k/uL Monocytes # (0-1.0) k/uL Eosinophils # (0-0.7) k/uL Basophils # (0-0.2) k/uL Hypochromasia Macrocytosis Sodium 143 (137-145) mmol/L Potassium 6.3 H* (3.5-5.1) mmol/L Chloride 115 H (98-107) mmol/L Carbon Dioxide 8 L* (22-30) mmol/L Anion Gap 20 mmol/L BUN 123 H* (9-20) mg/dL Creatinine 11.03 H* (0.66-1.25) mg/dL Est GFR (MDRD) Af Amer 6 (>60 ml/min/1.73 sqM) Est GFR (MDRD) Non-Af 5 (>60 ml/min/1.73 sqM) Glucose 110 H (74-99) mg/dL POC Glucose (mg/dL) (75-99) mg/dL POC Glu English Instructor ID Calcium 9.6 (8.4-10.2) mg/dL Total Bilirubin 0.6 (0.2-1.3) mg/dL AST 58 (17-59) U/L ALT 112 H (21-72) U/L Alkaline Phosphatase 172 H (38-126) U/L Ammonia 11 (<30) umol/L Total Creatine Kinase 604 H (55-170) U/L CK-MB (CK-2) 9.0 H* (0.0-2.4) ng/mL CK-MB (CK-2) Rel Index 1.5 Troponin I 0.022 (0.000-0.034) ng/mL Total Protein 8.1 (6.3-8.2) g/dL Albumin 4.0 (3.5-5.0) g/dL Critical Care Time Critical Care Time: Yes Total Critical Care Time: 34 Disposition Clinical Impression: Renal failure, acute, Hyperkalemia Disposition: ADMITTED IP TO THIS [facility] Condition: Serious
[2016-07-11 11:18] LABS: Glucose,Whole Blood 96 mg/dL (75-99)
[2016-07-11 11:53] LABS: Basophils # (A) 0.1 k/uL (0-0.2); Basophils % (A) 1 %; CH 30.1; CHCM 30.2; Eosinophils # (A) 0.2 k/uL (0-0.7); Eosinophils % (A) 3 %; HCT 36.8 % (39.0-53.0); HDW 3.02; HGB 10.6 gm/dL (13.0-17.5); Hypochromasia Marked; Luc % (Auto) 1; Lymphocytes # (A) 1.1 k/uL (1.0-4.8); Lymphocytes % (A) 14 %; MCHC 28.9 g/dL (31.0-37.0); MCV 100.5 fL (80.0-100.0); Macrocytosis Slight; Mean Platelet Volume 7.4; Monocytes # (A) 0.3 k/uL (0-1.0); Monocytes % (A) 4 %; Neutrophils # (A) 6.1 k/uL (1.3-7.7); Neutrophils % (A) 78 %; RBC 3.67 m/uL (4.30-5.90); RDW 15.1 % (11.5-15.5); WBC 7.8 k/uL (3.8-10.6); WBC (Perox) 7.67
[2016-07-11 12:05] LABS: Calcium 9.6 mg/dL (8.4-10.2); Total Bilirubin 0.6 mg/dL (0.2-1.3); Total Protein 8.1 g/dL (6.3-8.2)
[2016-07-11 12:17] LABS: Potassium 6.3 mmol/L (3.5-5.1)
[2016-07-11 12:30] LABS: Troponin I 0.022 ng/mL (0.000-0.034)
[2016-07-11] MEDS: SODIUM CHLORIDE 0.9% 1,000 ML IV SCH ×2 (12:30→17:48)
--- NOTE | 2016-07-11 12:39 | CT ---
EXAMINATION TYPE: CT brain wo con DATE OF EXAM: 07/11/2016 12:25 PM COMPARISON: Previous study dated 10/17/2007. HISTORY: altered mental changes CT DLP: 1082 mGycm Automated exposure control for dose reduction was used. FINDINGS: There are mild, generalized changes of sulcal prominence and ventriculomegaly, compatible with mild a trophic change. There is some mild, diffuse periventricular white matter lucency, compatible with chr onic white matter ischemic change. There is no acute focal lesion, mass effect or midline shift ident ified. I do not see evidence of intracranial blood. There is some vascular calcification. Visualized portions of the paranasal sinuses and mastoids are clear. No depressed skull fracture is s een. IMPRESSION: 1. NO ACUTE INTRACRANIAL ABNORMALITY. 2. MILD DEGENERATIVE CHANGE.
--- NOTE | 2016-07-11 12:45 | XR ---
EXAMINATION TYPE: XR chest 2V DATE OF EXAM: 07/11/2016 12:28 PM HISTORY: Altered mental status. REFERENCE: Previous study dated 06/27/2016. FINDINGS: The lungs are overinflated. Heart size is normal. There is some scarring in the left midlun g. Pleural spaces are clear. IMPRESSION: 1. COPD. 2. SCARRING VERSUS ATELECTASIS, LEFT MIDLUNG.
[2016-07-11] MEDS ORDERED: NALOXONE 0.4 MG/ML 1 ML VIAL IV PRN (12:51)
[2016-07-11] MEDS ORDERED: SODIUM BICARB 8.4% 50 ML SYR (1 MEQ/ML) IV STA (12:53)
[2016-07-11] MEDS ORDERED: INSULIN REGULAR 100 UNIT/ML VIAL IV ONE (12:54)
[2016-07-11] MEDS ORDERED: DEXTROSE 50%-WATER 50 ML SYRINGE IVP STA (12:54)
[2016-07-11] MEDS ORDERED: ALBUTEROL NEBULIZED 2.5 MG/3 ML INHALATION STA (12:54)
[2016-07-11] MEDS ORDERED: CALCIUM GLUCONATE 1,000 MG in SODIUM CHLORIDE 0.9% 100 ML IVPB ONE (12:54)
[2016-07-11] MEDS ORDERED: SODIUM POLYSTYRENE SULFONATE 15 GM/60 ML BOTTLE PO STA (12:54)
[2016-07-11] MEDS ORDERED: hydrALAZINE HCL 20 MG/ML 1 ML VIAL IVP STA (12:55)
[2016-07-11] MEDS ORDERED: DEXTROSE 5% IN WATER 1,000 ML with SODIUM BICARB (1 MEQ/ML) 150 ML IV ONE (13:00)
[2016-07-11 13:05] LABS: Appearance,Urine Clear (Clear); Bacteria,Urine Rare /hpf; Bilirubin,Urine Negative (Negative); Glucose,Urine (UA) Negative (Negative); Ketones,Urine Negative (Negative); Leukocyte Esterase,Urine Large (Negative); Mucus,Urine Rare /hpf; Nitrite,Urine Negative (Negative); Particle Count 2748; Protein,Urine 2+ (Negative); RBC,Urine <1 /hpf (0-5); Specific Gravity,Urine 1.009 (1.001-1.035); Squamous Epithelial Cell,Urine 2 /hpf (0-4); UA Billing (MACRO vs. MICRO) MICRO; Urobilinogen,Urine <2.0 mg/dL (<2.0); WBC,Urine 54 /hpf (0-5)
[2016-07-11 13:46] LABS: INR 1.1 (<1.1); Prothrombin Time 10.6 sec (9.0-12.0)
[2016-07-11 13:47] LABS: Partial Thromboplastin Time 27.4 sec (22.0-30.0)
[2016-07-11 15:33] LABS: Glucose,Whole Blood 69 mg/dL (75-99)
[2016-07-11] MEDS ORDERED: LORazepam 2 MG/ML SYRINGE IV PRN (18:34)
[2016-07-11] MEDS ORDERED: ONDANSETRON 4 MG/2 ML VIAL IVP PRN (18:34)
[2016-07-11 18:46] LABS: Calcium 9.4 mg/dL (8.4-10.2); Potassium 5.5 mmol/L (3.5-5.1)
--- NOTE | 2016-07-11 20:22 | HP ---
DATE OF ADMISSION: 07/11/2016 CHIEF COMPLAINT: Weak and renal failure and change in mental status. HISTORY OF PRESENT ILLNESS: This 65-year-old gentleman with a past medical history of multiple medical problems, hypertension, hyperlipidemia, history of renal disease, history of noncompliance, bipolar depression, history of substance abuse being followed by no primary care physician in the outpatient setting, apparently had recently returned to the area. The patient uses heroin and the last use was yesterday. The patient was previously admitted with renal failure, recommended hemodialysis which the patient refused and currently the patient was admitted with dehydration, change in mental status and renal failure. The creatinine was found to be 11.0. The previous baseline was around 6 and the patient also had hyperkalemia. The patient was also dehydrated. The patient mildly confused but able to give sketchy history. The patient also had features of urinary tract infection also. There is no history of rigors or chills. No history of trauma at this time. PAST MEDICAL HISTORY: 1. History of renal failure. 2. History of noncompliance. 3. History of polysubstance abuse. 4. History of hyperlipidemia. 5. History of bipolar depression. Medications prior to admission home medications are: 1. Kayexalate 15 grams daily. 2. Sodium bicarb 1300. 3. Lasix 80 mg daily. 4. Lipitor 20 mg. 5. Aspirin 81 mg. ALLERGIES: nad. FAMILY HISTORY: Per chart alcohol. Socially history of smoking and alcohol. And. Review of systems could not be taken, the patient is confused at this time. PHYSICAL EXAMINATION: Pulse is 112, blood pressure 141/79, respiratory rate 15, temperature 97.7, pulse ox 99% on room air. HEENT: Conjunctivae normal. Oral mucosa moist. NECK: No jugular venous distention. No carotid bruit. No thyroid enlargement. CARDIOVASCULAR: S1, S2 muffled. RESPIRATORY: Breath sounds diminished at the bases. A few scattered rhonchi, no crackles. ABDOMEN: Soft, nontender. No mass palpable. Legs: No edema. No swelling. LEGS: No edema. No swelling. CENTRAL NERVOUS SYSTEM: Higher functions as mentioned earlier. Moves all four limbs. No focal motor or sensory deficits. LYMPHATICS: No lymph nodes palpable in the neck, axillae or groin. SKIN: No ulcer, rashes or bleeding. LABS: WBC 7.2, hemoglobin 10.6. Sodium 143, potassium 6.2, creatinine is 11.03, ALT is 112, alk phos is 172. Drug screen is positive for cocaine. UA noted. ASSESSMENT: 1. Acute on chronic renal failure with possible prerenal factors acute tubular necrosis with significant dehydration. 2. Baseline chronic kidney disease, stage IV. 3. Hyperkalemia secondary to acute renal failure. 4. Hyperchloremia. 5. Possibly metabolic acidosis secondary to renal failure. 6. Increased ALT. 7. Increased creatinine kinase. 8. Mild rhabdomyolysis. 9. Mild hypoglycemia. 10. Urinary tract infection. 11. Positive cocaine and polysubstance abuse. 12. Anemia, microcytic possibly secondary to ETOH. 13. Hyperlipidemia. 14. History of noncompliance. 15. History of bipolar depression. 16. History of heroin abuse. RECOMMENDATIONS AND DISCUSSION: In this 65-year-old gentleman who presented with multiple complex medical issues, we will monitor the patient closely, continue current medications, symptomatic treatment, we will initiate with IV fluids cautiously and nephrology consultation. Potassium has been 6.3 this morning. We will repeat check on a stat basis. Continue to monitor. We will change the fluid to D5 0.9 and continue to monitor. Otherwise, repeat labs will be arranged and also recommend empiric antibiotics also. Prognosis guarded because of multiple complex medical issues. Further recommendations to follow. Also recommend the patient to follow up with the primary physician closely in the outpatient setting also. refractory worker and senior case manager to discuss other issues including noncompliance. MTDD
[2016-07-11] MEDS: DEXTROSE 5%-0.9% NACL 1,000 ML IV SCH (20:32)
[2016-07-11] MEDS: HEPARIN SODIUM,PORCINE 5,000 UNIT/ML 1 ML VIAL SQ SCH (20:34)
[2016-07-11] MEDS: ATORVASTATIN 20 MG TAB PO SCH (20:34)
[2016-07-11] MEDS: SODIUM BICARBONATE TAB 650 MG TAB PO SCH (20:34)
[2016-07-11] MEDS ORDERED: TEMAZEPAM 15 MG CAP PO PRN (21:00)
[2016-07-12] MEDS: DEXTROSE 5%-0.9% NACL 1,000 ML IV SCH ×2 (01:28→08:24)
[2016-07-12 06:19] LABS: Cholesterol 204 mg/dL (<200); Triglycerides 201 mg/dL (<150)
[2016-07-12 06:39] LABS: HDL Cholesterol 129 mg/dL (40-60)
[2016-07-12 06:53] LABS: Calcium 8.4 mg/dL (8.4-10.2); Total Bilirubin 0.5 mg/dL (0.2-1.3); Total Protein 6.5 g/dL (6.3-8.2)
--- NOTE | 2016-07-12 08:14 | P.NPCON ---
History of Present Illness - Reason for Consult Consult date: 07/12/16 acute renal failure, chronic renal failure - Chief Complaint bibiana - History of Present Illness Mr Guillen has Stage V CKD with baseline creat 5-6, GFR 15 ml/min for past 3 years. He followed with a systems designer in [place]. He was here last week for BIBIANA on CKD and dialysis was recommended but he refused. He came in with weakness and had severe BIBIANA and hyperkalemia, medically treated. K is better. He is cocaine and heroine +. Denies HIV. No n/v. He is alert eating breakfast. Review of Systems All systems: negative Constitutional: Reports as per HPI Past Medical History Past Medical History: Hyperlipidemia, Renal Disease Additional Past Medical History / Comment(s): Pt stopped taking his medications a couple months ago per brother at the bedside. Other HX: CKD stage IV-pt refuses hemodialysis, anemia, pancreatitis History of Any Multi-Drug Resistant Organisms: None Reported Past Surgical History: Orthopedic Surgery Additional Past Surgical History / Comment(s): 07/01/16 NICO. Past Anesthesia/Blood Transfusion Reactions: No Reported Reaction Past Psychological History: Bipolar, Depression Additional Psychological History / Comment(s): Pt resides with one of his brothers. He uses no device. He does not drive. Smoking Status: Current every day smoker Past Alcohol Use History: Occasional Additional Past Alcohol Use History / Comment(s): Pt started smoking around age 7 or 8 yrs. He drinks on a daily basis-brother states he is an alcoholic. Past Drug Use History: Heroin Additional Drug Use History / Comment(s): Pt states he uses heroin and last used yesterday-07/10/16. He states he has used heroin intravaneously or skin pops. - Past Family History Father Additional Family Medical History / Comment(s): Father was an alcoholic and of this at the age of 44yrs. Mother Family Medical History: No Reported History Additional Family Medical History / Comment(s): Mother is 88yrs old and healthy. Brother(s) Family Medical History: Diabetes Mellitus Medications and Allergies Allergies Allergy/AdvReac Type Severity Reaction Status Date / Time aspirin Allergy Nausea & Verified 07/11/16 10:57 Vomiting Physical Exam Vitals: Vital Signs Temp Pulse Pulse Resp BP BP Pulse Ox 07/12/16 03:42 97 F L 87 16 145/85 99 07/11/16 23:53 97.7 F 77 16 154/73 99 07/11/16 20:00 97.8 F 78 16 145/76 100 07/11/16 17:33 97.6 F 96 16 151/85 98 07/11/16 17:31 96 15 07/11/16 16:46 112 H 15 141/79 99 07/11/16 16:08 104 H 15 145/83 100 07/11/16 14:13 108 H 168/73 07/11/16 13:58 104 H 16 177/90 100 Intake and Output 07/11/16 07/12/16 07/12/16 22:59 06:59 14:59 Intake Total 800 800 Balance 800 800 Intake: IV 800 800 D5 .9 @ 100 mL/hr 800 800 Other: Weight 57.8 kg - Constitutional General appearance: cooperative, no acute distress, thin - Respiratory Respiratory: bilateral: CTA - Cardiovascular Rhythm: regular Heart sounds: normal: S1, S2 leg Peripheral Edema: bilateral: None - Gastrointestinal General gastrointestinal: normal bowel sounds, soft Results - Lab Results Most recent lab results Calcium 8.4 mg/dL (8.4-10.2) 07/12/16 05:45 07/11/16 11:45 07/12/16 05:45 Assessment and Plan Plan: 1. Nonoliguric BIBIANA due to Ischemic ATN from cocaine and heroin. --CPK normal 2. Stage V CKD with eGFR 15 ml/min past 3 years --Has been refusing dialysis. 3. Illicit Drug abuse. 4. Anemia of CKD- mild. Plan: 1. Long conversation regarding dialysis (benefits/risks.) 2. He is agreeable to at least meet the vascular surgeon. (Dr. Gonzalez is aware) . 3. Check HIV and hepatitis panel. 4. No indication for urgent HD. 5. Change IVFs to 0.45NS 100/hr. 6. If he agrees to Hd, will likely have it starting on Thursday.
[2016-07-12] MEDS: SODIUM CHLORIDE 0.45% 1,000 ML IV SCH ×2 (08:32→20:18)
[2016-07-12] MEDS: HEPARIN SODIUM,PORCINE 5,000 UNIT/ML 1 ML VIAL SQ SCH ×2 (08:40→20:16)
[2016-07-12] MEDS: NICOTINE 14MG/24HR PATCH TRANSDERM SCH (08:40)
[2016-07-12] MEDS: PANTOPRAZOLE 40 MG/10 ML VIAL IVP SCH (08:40)
[2016-07-12] MEDS: SODIUM BICARBONATE TAB 650 MG TAB PO SCH ×2 (08:40→20:17)
[2016-07-12] MEDS: SODIUM POLYSTYRENE SULFONATE 15 GM/60 ML BOTTLE PO SCH (08:41)
[2016-07-12] MEDS ORDERED: LABETALOL 200 MG TAB PO STA (10:26)
--- NOTE | 2016-07-12 10:45 | P.GSCN ---
History of Present Illness History of present illness: 65 old male, history of acute chronic failure, GFR is 15 I was consulted for placement of the dialysis catheter I had a discussion with the patient and explained to him the procedure if he agrees we'll proceed for dialysis catheter Medical history history of hypertension renal failure Personal history history of smoking on examination neck supple no bruit appreciated Chest clear auscultation first and second sound normal Abdomen soft nontender Femoral brachial radial pulses are present History of acute chronic failure, history of hypertension, if patient agrees we' ll proceed placement of the dialysis catheter thank very much Past Medical History Past Medical History: Hyperlipidemia, Renal Disease Additional Past Medical History / Comment(s): Pt stopped taking his medications a couple months ago per brother at the bedside. Other HX: CKD stage IV-pt refuses hemodialysis, anemia, pancreatitis History of Any Multi-Drug Resistant Organisms: None Reported Past Surgical History: Orthopedic Surgery Additional Past Surgical History / Comment(s): 07/01/16 NICO. Past Anesthesia/Blood Transfusion Reactions: No Reported Reaction Past Psychological History: Bipolar, Depression Additional Psychological History / Comment(s): Pt resides with one of his brothers. He uses no device. He does not drive. Smoking Status: Current every day smoker Past Alcohol Use History: Occasional Additional Past Alcohol Use History / Comment(s): Pt started smoking around age 7 or 8 yrs. He drinks on a daily basis-brother states he is an alcoholic. Past Drug Use History: Heroin Additional Drug Use History / Comment(s): Pt states he uses heroin and last used yesterday-07/10/16. He states he has used heroin intravaneously or skin pops. - Past Family History Father Additional Family Medical History / Comment(s): Father was an alcoholic and of this at the age of 44yrs. Mother Family Medical History: No Reported History Additional Family Medical History / Comment(s): Mother is 88yrs old and healthy. Brother(s) Family Medical History: Diabetes Mellitus Medications and Allergies Allergies Allergy/AdvReac Type Severity Reaction Status Date / Time aspirin Allergy Nausea & Verified 07/11/16 10:57 Vomiting Surgical - Exam Vital Signs Temp Pulse Resp BP Pulse Ox 98.6 F 101 H 18 175/87 97 07/11/16 10:51 07/11/16 10:51 07/11/16 10:51 07/11/16 10:51 07/11/16 10:51 Results - Labs 07/11/16 11:45 07/12/16 05:45 Abnormal Lab Results - Last 24 Hours (Table) 07/11/16 07/11/16 07/12/16 Range/Units 15:29 18:08 05:45 Sodium 146 H 151 H (137-145) mmol/L Potassium 5.5 H (3.5-5.1) mmol/L Chloride 114 H 118 H (98-107) mmol/L Carbon Dioxide 13 L 17 L (22-30) mmol/L BUN 127 H* 117 H* (9-20) mg/dL Creatinine 10.36 H* 9.55 H* (0.66-1.25) mg/dL Glucose 113 H 135 H (74-99) mg/dL POC Glucose (mg/dL) 69 L (75-99) mg/dL ALT 76 H (21-72) U/L Albumin 3.1 L (3.5-5.0) g/dL Diabetes panel 07/11/16 07/12/16 Range/Units 18:08 05:45 Sodium 146 H 151 H (137-145) mmol/L Potassium 5.5 H 5.0 (3.5-5.1) mmol/L Chloride 114 H 118 H (98-107) mmol/L Carbon Dioxide 13 L 17 L (22-30) mmol/L BUN 127 H* 117 H* (9-20) mg/dL Creatinine 10.36 H* 9.55 H* (0.66-1.25) mg/dL Glucose 113 H 135 H (74-99) mg/dL Calcium 9.4 8.4 (8.4-10.2) mg/dL AST 48 (17-59) U/L ALT 76 H (21-72) U/L Alkaline Phosphatase 120 (38-126) U/L Total Protein 6.5 (6.3-8.2) g/dL Albumin 3.1 L (3.5-5.0) g/dL Calcium panel 07/11/16 07/12/16 Range/Units 18:08 05:45 Calcium 9.4 8.4 (8.4-10.2) mg/dL Albumin 3.1 L (3.5-5.0) g/dL Pituitary panel 07/11/16 07/12/16 Range/Units 18:08 05:45 Sodium 146 H 151 H (137-145) mmol/L Potassium 5.5 H 5.0 (3.5-5.1) mmol/L Chloride 114 H 118 H (98-107) mmol/L Carbon Dioxide 13 L 17 L (22-30) mmol/L BUN 127 H* 117 H* (9-20) mg/dL Creatinine 10.36 H* 9.55 H* (0.66-1.25) mg/dL Glucose 113 H 135 H (74-99) mg/dL Calcium 9.4 8.4 (8.4-10.2) mg/dL Adrenal panel 07/11/16 07/12/16 Range/Units 18:08 05:45 Sodium 146 H 151 H (137-145) mmol/L Potassium 5.5 H 5.0 (3.5-5.1) mmol/L Chloride 114 H 118 H (98-107) mmol/L Carbon Dioxide 13 L 17 L (22-30) mmol/L BUN 127 H* 117 H* (9-20) mg/dL Creatinine 10.36 H* 9.55 H* (0.66-1.25) mg/dL Glucose 113 H 135 H (74-99) mg/dL Calcium 9.4 8.4 (8.4-10.2) mg/dL Total Bilirubin 0.5 (0.2-1.3) mg/dL AST 48 (17-59) U/L ALT 76 H (21-72) U/L Alkaline Phosphatase 120 (38-126) U/L Total Protein 6.5 (6.3-8.2) g/dL Albumin 3.1 L (3.5-5.0) g/dL
[2016-07-12 11:26] VITALS: BMI 19.9
[2016-07-12 12:44] LABS: Glucose,Whole Blood 114 mg/dL (75-99)
[2016-07-12] MEDS: HYDROcodone/APAP 5-325MG 1 EACH TAB PO PRN ×2 (17:05→23:15)
[2016-07-12 17:13] LABS: Glucose,Whole Blood 165 mg/dL (75-99)
[2016-07-12] MEDS: ATORVASTATIN 20 MG TAB PO SCH (20:17)
[2016-07-13] MEDS: HYDROcodone/APAP 5-325MG 1 EACH TAB PO PRN ×3 (05:34→20:23)
[2016-07-13] MEDS: SODIUM CHLORIDE 0.45% 1,000 ML IV SCH ×2 (05:34→16:42)
[2016-07-13 06:58] LABS: Basophils % (A) 1 %; CH 30.4; CHCM 32.6; Eosinophils # (A) 0.3 k/uL (0-0.7); Eosinophils % (A) 5 %; HCT 25.6 % (39.0-53.0); HDW 3.06; Luc # (Auto) 0.16; Luc % (Auto) 3; Lymphocytes # (A) 1.3 k/uL (1.0-4.8); Lymphocytes % (A) 26 %; MCH 30.2 pg (25.0-35.0); MCHC 32.2 g/dL (31.0-37.0); MCV 93.8 fL (80.0-100.0); Mean Platelet Volume 6.7; Monocytes # (A) 0.4 k/uL (0-1.0); Monocytes % (A) 7 %; Neutrophils # (A) 2.9 k/uL (1.3-7.7); Neutrophils % (A) 59 %; RBC 2.73 m/uL (4.30-5.90); RDW 15.1 % (11.5-15.5); WBC (Perox) 5.15
[2016-07-13 07:02] LABS: HGB 8.2 gm/dL (13.0-17.5)
[2016-07-13 07:12] LABS: Calcium 7.4 mg/dL (8.4-10.2); Potassium 4.4 mmol/L (3.5-5.1)
--- NOTE | 2016-07-13 07:36 | P.PN ---
Subjective Principal diagnosis: Sitting up eating breakfast no complaints. Objective - Vital Signs Vital signs: Vital Signs Temp 96.2 F L 07/13/16 03:27 Pulse 69 07/13/16 03:27 Resp 16 07/13/16 03:27 BP 120/64 07/13/16 03:27 Pulse Ox 98 07/13/16 03:27 Intake & Output 07/12/16 07/13/16 07/13/16 18:59 06:59 18:59 Intake Total 1300 1600 Output Total 425 350 Balance 875 1250 Weight 57.8 kg 61 kg Intake: IV 1300 1600 D5 .9 @ 100 mL/hr 1300 1600 Output: Urine 425 350 Other: Voiding Method Urinal - Constitutional General appearance: Present: cooperative - Respiratory Respiratory: bilateral: CTA - Cardiovascular Rhythm: regular Heart sounds: normal: S1, S2 - Peripheral edema leg Peripheral Edema: bilateral: None - Gastrointestinal General gastrointestinal: Present: soft - Labs CBC & Chem 7: 07/13/16 06:30 07/13/16 06:30 Labs: Abnormal Lab Results - Last 24 Hours (Table) 07/12/16 07/12/16 07/13/16 Range/Units 12:26 17:07 06:30 RBC 2.73 L (4.30-5.90) m/uL Hgb 8.2 L D (13.0-17.5) gm/dL Hct 25.6 L (39.0-53.0) % Chloride (98-107) mmol/L Carbon Dioxide (22-30) mmol/L BUN (9-20) mg/dL Creatinine (0.66-1.25) mg/dL Glucose (74-99) mg/dL POC Glucose (mg/dL) 114 H 165 H (75-99) mg/dL Calcium (8.4-10.2) mg/dL 07/13/16 Range/Units 06:30 RBC (4.30-5.90) m/uL Hgb (13.0-17.5) gm/dL Hct (39.0-53.0) % Chloride 112 H (98-107) mmol/L Carbon Dioxide 17 L (22-30) mmol/L BUN 87 H* (9-20) mg/dL Creatinine 7.70 H* (0.66-1.25) mg/dL Glucose 72 L (74-99) mg/dL POC Glucose (mg/dL) (75-99) mg/dL Calcium 7.4 L (8.4-10.2) mg/dL Microbiology - Last 24 Hours (Table) 07/11/16 19:12 Blood Culture - Preliminary Blood No Growth after 24 hours 07/11/16 20:20 Urine Culture - Preliminary Urine,Voided Assessment and Plan Plan: 1. Nonoliguric BIBIANA due to Ischemic ATN from cocaine and heroin. --improving. 2. Stage V CKD with eGFR 15 ml/min past 3 years b/l creat 5-6. --Has been refusing dialysis. 3. Illicit Drug abuse. 4. Anemia of CKD- mild. Plan: 1. Long conversation regarding dialysis (benefits/risks.) yesterday and again today. 2. Vascular surgery also discussed with him yesterday. 3. Check HIV and hepatitis panel pending (Sat) 4. No indication for urgent HD. 5. Needs another day to think about starting dialysis tomorrow.
[2016-07-13 07:40] LABS: Hepatitis B Surface Ag Index 0.06
[2016-07-13 07:46] LABS: Hepatitis B Core IgM Index 0.06
[2016-07-13 08:01] LABS: Hepatitis C Virus IgG Ab Reactive (Negative)
[2016-07-13] MEDS: SODIUM POLYSTYRENE SULFONATE 15 GM/60 ML BOTTLE PO SCH (08:26)
[2016-07-13] MEDS: HEPARIN SODIUM,PORCINE 5,000 UNIT/ML 1 ML VIAL SQ SCH ×2 (08:26→20:20)
[2016-07-13] MEDS: SODIUM BICARBONATE TAB 650 MG TAB PO SCH ×3 (08:31→20:22)
[2016-07-13] MEDS: PANTOPRAZOLE 40 MG/10 ML VIAL IVP SCH (08:31)
[2016-07-13] MEDS: NICOTINE 14MG/24HR PATCH TRANSDERM SCH (08:32)
--- NOTE | 2016-07-13 10:06 | PN ---
DATE OF SERVICE: 07/12/2016 This 65-year-old gentleman admitted with acute on chronic renal failure also had significant issues with dehydration and as well as substance abuse including heroin and cocaine abuse also. The patient is still confused even though the sensorium is slightly improved. Nephrology and Vascular Surgery has been following the patient closely. Drag Out Man recommended emergent hemodialysis. The patient is still thinking about the hemodialysis catheter. No chest pain. No palpitations. PAST MEDICAL HISTORY: Reviewed. REVIEW OF SYSTEMS: CARDIOVASCULAR: No angina. RESPIRATORY: As mentioned earlier. GI: As mentioned earlier. : No dysuria. NERVOUS SYSTEM: Diffusely weak. Current medications are reviewed and include; 1. [place] 5 mg q.6 p.r.n. 2. Lipitor 20 mg q.h.s. 3. Rocephin 1 gram daily. 4. Dilaudid. 5. Ativan. 6. Narcan. 7. Zofran. 8. Protonix. 9. Kayexalate. 10. Restoril. PHYSICAL EXAMINATION: Patient is alert, oriented x2. Pulse 72, blood pressure 140/74, respirations 16, temperature 97.4, pulse ox 98% on room air. HEENT: Conjunctivae normal. NECK: No jugular venous distention. CARDIOVASCULAR: S1 and S2, muffled. RESPIRATORY: Breath sounds diminished at the bases. Scattered rhonchi and crackles. ABDOMEN: Soft, nontender. No mass palpable. LEGS: No edema, no swelling. NERVOUS SYSTEM: No focal deficits. LABS: Sodium 151, creatinine is 9.55. Albumin is 3.1. CBC noted. ASSESSMENT: 1. Acute on chronic renal failure with possible prerenal factors with acute tubular necrosis with significant dehydration. 2. Baseline chronic kidney disease stage IV. 3. Hyperkalemia secondary to acute renal failure. 4. Hyperchloremia. 5. Change in mental status, metabolic encephalopathy, acute on chronic. 6. Increased ALT. 7. Increased creatinine kinases. 8. Mild rhabdomyolysis. 9. Polysubstance abuse including IV heroin and cocaine. 10. Mild hypoglycemia. 11. Urinary tract infection. 12. Anemia, macrocytic, possibly secondary to EtOH. 13. Hyperlipidemia. 14. History of noncompliance. 15. History of bipolar depression. 16. History of heroin abuse. 17. FULL CODE. RECOMMENDATIONS AND DISCUSSION: In this 65-year-old gentleman who presented with multiple issues. Will monitor the patient closely. Continue the current medications, continue with symptomatic treatment. Otherwise, at this time I would recommend closely follow with Dr. Heath and Nephrology. Possible hemodialysis catheter insertion. Continue on hemodialysis. Continue the antibiotics. Monitor fluid and electrolyte balance closely. Repeat labs are recommended. Prognosis guarded because of multiple complex medical issues. funeral arrangement director to address some of the issues listed above. [facility]
[2016-07-13] MEDS: ATORVASTATIN 20 MG TAB PO SCH (20:20)
[2016-07-14] MEDS: HYDROcodone/APAP 5-325MG 1 EACH TAB PO PRN ×6 (00:37→21:20)
[2016-07-14] MEDS: SODIUM CHLORIDE 0.45% 1,000 ML IV SCH ×3 (02:59→19:57)
[2016-07-14 06:53] LABS: CH 30.6; CHCM 33.3; HDW 3.08; MCH 30.8 pg (25.0-35.0); MCHC 33.3 g/dL (31.0-37.0); MCV 92.4 fL (80.0-100.0); Mean Platelet Volume 7.7; RDW 15.2 % (11.5-15.5); WBC 4.5 k/uL (3.8-10.6)
[2016-07-14 07:16] LABS: Calcium 7.1 mg/dL (8.4-10.2); Potassium 4.7 mmol/L (3.5-5.1)
[2016-07-14 07:20] LABS: Add Differential Manual Differential
[2016-07-14 07:23] LABS: Manual Review Performed; Nucleated Red Blood Cells 0 /100 WBC (0-0); Polychromasia Present; Total Cells Counted 100
--- NOTE | 2016-07-14 08:21 | PN ---
DATE OF SERVICE: 07/13/2016 This 65-year-old gentleman was admitted with acute on chronic renal failure, possible prerenal factors and acute tubular necrosis is being closely monitored. Hemodialysis Nephrology. No chest pain. No palpitations. Sensorium is improved significantly. Patient is thinking about entering into the hemodialysis program. On exam, alert and oriented x2. Pulse 72, blood pressure 130/74. Respiratory rate 16. Temperature 97.4, pulse ox 98% on room air. HEENT: Conjunctivae normal. NECK: No jugular venous distention. CARDIOVASCULAR: S1, S2 muffled. RESPIRATORY: Breath sounds diminished at the bases. A few scattered rhonchi and crackles. ABDOMEN: Soft. Nontender. LEGS: No edema. No swelling. CENTRAL NERVOUS SYSTEM: No focal deficits. LABS: WBC 5, hemoglobin is 8.2. Sodium is 143. Hepatitis C is positive. ASSESSMENT: 1. Acute on chronic renal failure with possibly prerenal factors with acute tubular necrosis with significant dehydration, present on admission. 2. Baseline chronic kidney disease, stage IV. 3. Hyperkalemia secondary to acute renal failure. 4. Hyperchloremia. 5. Hepatitis C positive. 6. Change in mental status, metabolic encephalopathy, acute on chronic. 7. Increased ALT. 8. Increased creatinine kinase. 9. Mild rhabdomyolysis. 10. Polysubstance abuse, including IV heroin and cocaine. 11. Mild hypoglycemia. 12. Urinary tract infection. 13. Anemia, macrocytic, possibly secondary to ETOH. 14. Hyperlipidemia. 15. History of noncompliance. 16. History of bipolar depression. 17. History of heroin abuse. 18. FULL CODE. RECOMMENDATIONS AND DISCUSSION: In this 65-year-old gentleman who presented with multiple complex medical issues, we will monitor the patient closely. Continue the current medications. Continue symptomatic treatment. Otherwise, closely follow with nephrology for possible hemodialysis. Further recommendations to follow. MTDD
[2016-07-14] MEDS: HEPARIN SODIUM,PORCINE 5,000 UNIT/ML 1 ML VIAL SQ SCH ×2 (08:54→21:20)
[2016-07-14] MEDS: PANTOPRAZOLE 40 MG/10 ML VIAL IVP SCH (08:54)
[2016-07-14] MEDS: NICOTINE 14MG/24HR PATCH TRANSDERM SCH (08:54)
[2016-07-14] MEDS: SODIUM BICARBONATE TAB 650 MG TAB PO SCH ×3 (08:55→21:20)
[2016-07-14] MEDS: SODIUM POLYSTYRENE SULFONATE 15 GM/60 ML BOTTLE PO SCH (08:55)
--- NOTE | 2016-07-14 09:37 | P.PN ---
Subjective Patient is seen in follow-up for chronic kidney disease. Patient has chronic kidney disease stage V for the past 3 years but has been refusing hemodialysis. His creatinine this admission was 10 and has been gradually improving with IV hydration and is down to 7.1 today. Denies any chest pain or shortness of breath. No vomiting or diarrhea. Appetite is good. Vital signs are stable. General: The patient appeared well nourished and normally developed. HEENT: Head exam is unremarkable. Neck is without jugular venous distension. LUNGS: Lungs are clear to auscultation and percussion. Breath sounds decreased. HEART: Rate and Rhythm are regular. First and second heart sounds normal. No murmurs, rubs or gallops. ABDOMEN: Abdominal exam reveals normal bowel sounds. Non-tender and non- distended. No evidence of peritonitis. EXTREMITITES: No clubbing, cyanosis, or edema. Objective - Vital Signs Vital signs: Vital Signs Temp 96.1 F L 07/14/16 08:00 Pulse 74 07/14/16 08:00 Resp 16 07/14/16 04:00 BP 162/83 07/14/16 08:00 Pulse Ox 97 07/14/16 08:00 Intake & Output 07/13/16 07/14/16 07/14/16 18:59 06:59 18:59 Intake Total 380 2200 222 Output Total 800 1050 Balance -420 1150 222 Weight 61.9 kg Intake: IV 1600 D5 .9 @ 100 mL/hr 1600 Oral 380 600 222 Output: Urine 800 1050 Other: Voiding Method Urinal # Bowel Movements 1 - Labs CBC & Chem 7: 07/14/16 06:37 07/14/16 06:37 Labs: Abnormal Lab Results - Last 24 Hours (Table) 07/14/16 07/14/16 Range/Units 06:37 06:37 RBC 2.60 L (4.30-5.90) m/uL Hgb 8.0 L (13.0-17.5) gm/dL Hct 24.0 L (39.0-53.0) % Chloride 115 H (98-107) mmol/L Carbon Dioxide 19 L (22-30) mmol/L BUN 77 H (9-20) mg/dL Creatinine 7.11 H* (0.66-1.25) mg/dL Calcium 7.1 L (8.4-10.2) mg/dL Microbiology - Last 24 Hours (Table) 07/11/16 19:12 Blood Culture - Preliminary Blood No Growth after 48 hours 07/11/16 20:20 Urine Culture - Final Urine,Voided Assessment and Plan Plan: Assessment: #1. Nonoliguric acute kidney injury secondary to ischemic ATN secondary to cocaine and heroine abuse. Improving. Creatinine on the 7.1 today. #2. Hyperchloremic acidosis from IV fluids as well as chronic kidney disease. #3. Chronic kidney disease stage V with baseline creatinine in the range of 5- 6. 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 Ultrasound reveals chronic kidney disease with small sized kidneys. #4. Anemia of chronic kidney disease. Rule out iron deficiency. #5. Hepatitis C. #6. Hypertension with chronic kidney disease. Plan: Maintain half-normal saline to be run at 100 mL an hour. Maintain oral sodium bicarbonate supplementation. Avoid nephrotoxic agents and hypotensive episodes. Check iron studies. Check a phosphorus level. Start Aranesp. Consider GI evaluation for hepatitis C treatment. Patient appears to have severe chronic kidney disease due to small sized kidneys. Therefore renal biopsy will be high risk and of no significant benefit. Patient is awaiting his daughter's arrival and then will decide if he wishes to proceed with renal replacement therapy or not.
[2016-07-14] MEDS ORDERED: DARBEPOETIN ALFA 40 MCG/0.4 ML SYRINGE SQ SCH (11:00)
[2016-07-14 11:20] LABS: Phosphorous 5.5 mg/dL (2.5-4.5)
[2016-07-14 11:30] LABS: % Iron Saturation 15.9 % (20-50)
[2016-07-14] MEDS ORDERED: cloNIDine HCL 0.1 MG TAB PO PRN (17:27)
[2016-07-14] MEDS ORDERED: hydrALAZINE HCL 20 MG/ML 1 ML VIAL IVP PRN (17:27)
[2016-07-14] MEDS ORDERED: LORazepam 0.5 MG TAB PO PRN (17:27)
[2016-07-14] MEDS: cloNIDine HCL 0.1 MG TAB PO SCH ×2 (18:00→21:21)
[2016-07-14] MEDS: ATORVASTATIN 20 MG TAB PO SCH (21:21)
[2016-07-15] MEDS: HYDROcodone/APAP 5-325MG 1 EACH TAB PO PRN ×5 (01:39→23:03)
[2016-07-15] MEDS: SODIUM CHLORIDE 0.45% 1,000 ML IV SCH ×2 (05:58→20:06)
--- NOTE | 2016-07-15 06:15 | PN ---
DATE OF SERVICE: 07/14/2016 This 65-year-old gentleman who was admitted with acute on chronic renal failure, is being closely monitored. Wing Scorer planned hemodialysis soon for which the patient appears to be agreeing at this time. No fever. No cough. On exam, alert and oriented x3. Pulse 69, blood pressure 194/101, respirations 18, temperature 97.2, pulse ox 90% on room air. HEENT: Conjunctivae normal. NECK: No jugular venous distention. CARDIOVASCULAR: S1 and S2. RESPIRATORY: Breath sounds diminished at the bases. A few scattered rhonchi and crackles. ABDOMEN: Soft, nontender. LEGS: No edema, no swelling. NERVOUS SYSTEM: No focal deficits. LABS: WBC 4.5, hemoglobin is 8 and creatinine 7.11, otherwise panels are noted. Hepatitis C is reactive. ASSESSMENT: 1. Acute on chronic renal failure with possibly prerenal factors or acute tubular necrosis with significant dehydration present on admission. 2. Baseline chronic kidney disease, stage next IV possibly. 3. Hyperkalemia secondary to acute renal failure. 4. Hyperchloremia. 5. Hepatitis C positive. 6. Change in mental status metabolic encephalopathy, acute on chronic. 7. Increased ALT. 8. Increased creatinine kinase. 9. Mild rhabdomyolysis. 10. Accelerated hypertension. 11. Polysubstance abuse including IV heroin and cocaine. 12. Mild hypoglycemia. 13. Urinary tract infection. 14. Anemia, macrocytic, possibly secondary to EtOH. 15. Hyperlipidemia. 16. History of noncompliance. 17. Bipolar depression. 18. History of heroin abuse. 19. FULL CODE. RECOMMENDATIONS AND DISCUSSION: I recommend to continue the current medications, continue with monitoring and symptomatic treatment. Otherwise I recommend, monitor the blood pressure closely. Possible hemodialysis. Otherwise, continue with IV fluids and rest of the medications per Nephrology. Guarded prognosis. Further recommendations to follow.
[2016-07-15] MEDS: PANTOPRAZOLE 40 MG TABLET PO SCH (08:11)
[2016-07-15] MEDS: cloNIDine HCL 0.1 MG TAB PO SCH ×3 (08:11→20:10)
[2016-07-15] MEDS: SODIUM BICARBONATE TAB 650 MG TAB PO SCH ×3 (08:11→20:09)
[2016-07-15] MEDS: HEPARIN SODIUM,PORCINE 5,000 UNIT/ML 1 ML VIAL SQ SCH ×3 (08:11→20:10)
[2016-07-15] MEDS: NICOTINE 14MG/24HR PATCH TRANSDERM SCH (08:11)
[2016-07-15] MEDS: SODIUM POLYSTYRENE SULFONATE 15 GM/60 ML BOTTLE PO SCH (08:12)
[2016-07-15] MEDS: HYDROmorphone 1 MG/ML 1 ML SYRINGE IVP PRN ×2 (10:05→16:42)
[2016-07-15 10:13] LABS: Basophils % (A) 1 %; CH 30.7; CHCM 33.6; Eosinophils # (A) 0.3 k/uL (0-0.7); Eosinophils % (A) 6 %; HCT 25.4 % (39.0-53.0); HDW 3.12; HGB 8.5 gm/dL (13.0-17.5); Luc # (Auto) 0.15; Luc % (Auto) 3; Lymphocytes # (A) 1.5 k/uL (1.0-4.8); Lymphocytes % (A) 32 %; MCH 30.6 pg (25.0-35.0); MCHC 33.3 g/dL (31.0-37.0); MCV 91.9 fL (80.0-100.0); Mean Platelet Volume 7.8; Monocytes # (A) 0.3 k/uL (0-1.0); Monocytes % (A) 7 %; Neutrophils # (A) 2.4 k/uL (1.3-7.7); Neutrophils % (A) 52 %; RBC 2.76 m/uL (4.30-5.90); WBC 4.6 k/uL (3.8-10.6); WBC (Perox) 4.94
[2016-07-15 10:15] LABS: Calcium 7.3 mg/dL (8.4-10.2); Potassium 4.3 mmol/L (3.5-5.1)
[2016-07-15] MEDS: SODIUM FERRIC GLUCONAT-SUCROSE 125 MG in SODIUM CHLORIDE 0.9% 100 ML IVPB SCH (11:25)
[2016-07-15] MEDS: CALCIUM ACETATE 667 MG CAP PO SCH ×2 (11:26→16:41)
--- NOTE | 2016-07-15 11:29 | P.PN ---
Subjective Patient is seen in follow-up for chronic kidney disease. Patient has chronic kidney disease stage V for the past 3 years but has been refusing hemodialysis. His creatinine this admission was 10 and has been gradually improving with IV hydration and is down to 6.5 today. Denies any chest pain or shortness of breath. No vomiting or diarrhea. Appetite is good. Vital signs are stable. General: The patient appeared well nourished and normally developed. HEENT: Head exam is unremarkable. Neck is without jugular venous distension. LUNGS: Lungs are clear to auscultation and percussion. Breath sounds decreased. HEART: Rate and Rhythm are regular. First and second heart sounds normal. No murmurs, rubs or gallops. ABDOMEN: Abdominal exam reveals normal bowel sounds. Non-tender and non- distended. No evidence of peritonitis. EXTREMITITES: No clubbing, cyanosis, or edema. Objective - Vital Signs Vital signs: Vital Signs Temp 98.1 F 07/15/16 07:00 Pulse 66 07/15/16 07:00 Resp 16 07/15/16 07:00 BP 179/97 07/15/16 07:00 Pulse Ox 98 07/15/16 07:00 Intake & Output 07/14/16 07/15/16 07/15/16 18:59 06:59 18:59 Intake Total 1462 100 Output Total 1325 200 Balance 137 -100 Intake: Intake, IV Titration 900 Amount Sodium Chloride 0.45% 1, 800 000 ml @ 100 mls/hr IV . Q10H [facility] Rx#:[id number] cefTRIAXone 1,000 mg In 100 Sodium Chloride 0.9% 50 ml @ 100 mls/hr IVPB Q24HR [facility] Rx#:[id number] Oral 562 100 Output: Urine 1325 200 Other: Voiding Method Urinal Urinal Urinal # Voids 1 - Labs CBC & Chem 7: 07/15/16 09:13 07/15/16 09:13 Labs: Abnormal Lab Results - Last 24 Hours (Table) 07/14/16 07/15/16 07/15/16 Range/Units 06:37 09:13 09:13 RBC 2.76 L (4.30-5.90) m/uL Hgb 8.5 L (13.0-17.5) gm/dL Hct 25.4 L (39.0-53.0) % Chloride 112 H (98-107) mmol/L Carbon Dioxide 20 L (22-30) mmol/L BUN 65 H (9-20) mg/dL Creatinine 6.51 H* (0.66-1.25) mg/dL Glucose 119 H (74-99) mg/dL Calcium 7.3 L (8.4-10.2) mg/dL Phosphorus 5.5 H (2.5-4.5) mg/dL Iron 39 L (49-181) ug/dL TIBC 245 L (261-462) ug/dL % Saturation 15.9 L (20-50) % Microbiology - Last 24 Hours (Table) 07/11/16 19:12 Blood Culture - Preliminary Blood No Growth after 72 hours Assessment and Plan Plan: Assessment: #1. Nonoliguric acute kidney injury secondary to ischemic ATN secondary to cocaine and heroine abuse. Improving. Creatinine 6.5 today. #2. Hyperchloremic acidosis from IV fluids as well as chronic kidney disease. #3. Chronic kidney disease stage V with baseline creatinine in the range of 5- 6. 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 Ultrasound reveals chronic kidney disease with small sized kidneys. #4. Anemia of chronic kidney disease. Iron deficiency present. #5. Hepatitis C. #6. Hypertension with chronic kidney disease. Plan: Maintain half-normal saline to be run at 100 mL an hour. Maintain oral sodium bicarbonate supplementation. Avoid nephrotoxic agents and hypotensive episodes. Ferrlecit 125 mg IV daily for 3 days. Maintain Aranesp. Start PhosLo with meals. Consider GI evaluation for hepatitis C treatment. Patient appears to have severe chronic kidney disease due to small sized kidneys. Therefore renal biopsy will be high risk and of no significant benefit. Patient is awaiting his daughter's arrival and then will decide if he wishes to proceed with renal replacement therapy or not.
--- NOTE | 2016-07-15 18:59 | PN ---
DATE OF SERVICE: 07/15/2016 This 65-year-old gentleman who was admitted with acute on chronic renal failure with prerenal factors acute tubular necrosis, syncope, dehydration is being closely monitored. Seen and evaluated the patient with the nurse practitioner. Please refer to the nurse practitioner notes and impression documented as a scribe for further information. Nephrology is following the patient closely and is recommending hemodialysis. The patient daughters will decide about further course of action. The prognosis guarded. Further recommendations to follow. MTDD
[2016-07-15] MEDS: ATORVASTATIN 20 MG TAB PO SCH (20:10)
--- NOTE | 2016-07-15 23:33 | P.PN ---
Subjective Date of service 07/15/2016. Progress note being dictated for Dr. Guo. Interval history: This a 65-year-old gentleman admitted with acute on chronic renal failure, syncope, dehydration in a patient with polysubstance abuse including heroin and cocaine and multiple other medical issues. Evaluated by a nephrology and hemodialysis recommended which patient currently declining. Initially patient stated he would wait for his daughter to arrive from [place] to make a decision regarding hemodialysis. Patient's daughter is not intending on coming to [place] at this time per phone conversation with RN. Maintained on IV fluid hydration with creatinine improving, currently at 6.5. Denies any chest pain, palpitations or increasing shortness of breath. Receiving IV iron. Afebrile, normal WBC, no cough Objective - Vital Signs Vital signs: Vital Signs Temp 96.9 F L 07/15/16 15:00 Pulse 61 07/15/16 15:00 Resp 18 07/15/16 15:00 BP 151/96 07/15/16 15:00 Pulse Ox 99 07/15/16 15:00 Intake & Output 07/15/16 07/15/16 07/16/16 06:59 18:59 06:59 Intake Total 100 1000 Output Total 200 1850 Balance -100 -850 Intake: Oral 100 1000 Output: Urine 200 1850 Other: Voiding Method Urinal Urinal # Voids 1 1 - Exam PHYSICAL EXAM: VITAL SIGNS: [As above] GENERAL: [Sitting up in bed, no acute distress] HEENT: [Pupils equal conjunctiva normal.] NECK: [Supple, no JVD] RESPIRATORY EFFORT:[Normal] LUNGS: Bilateral bases diminished, occasional fine scattered crackles and rhonchi] CARDIOVASCULAR[regular S1 and S2, no edema] GI: [Abdomen soft, nontender, positive bowel sounds.] PSYCH: [Alert and oriented -3, mood and affect normal.] NEURO: No focal deficits - Labs CBC & Chem 7: 07/15/16 09:13 07/15/16 09:13 Labs: Abnormal Lab Results - Last 24 Hours (Table) 07/15/16 07/15/16 Range/Units 09:13 09:13 RBC 2.76 L (4.30-5.90) m/uL Hgb 8.5 L (13.0-17.5) gm/dL Hct 25.4 L (39.0-53.0) % Chloride 112 H (98-107) mmol/L Carbon Dioxide 20 L (22-30) mmol/L BUN 65 H (9-20) mg/dL Creatinine 6.51 H* (0.66-1.25) mg/dL Glucose 119 H (74-99) mg/dL Calcium 7.3 L (8.4-10.2) mg/dL Microbiology - Last 24 Hours (Table) 07/11/16 19:12 Blood Culture - Preliminary Blood No Growth after 96 hours Assessment and Plan Plan: 1. [Acute on chronic renal failure, stage IV secondary to ischemic ATN related to cocaine and heroin abuse ,possibly prerenal factors, acute tubular necrosis with significant dehydration present on admission, improving]. Declining hemodialysis. 2. [Hyperkalemia secondary to acute renal failure hyperchloremia]. 3. [Hyperchloremic acidosis]. 4. [Hepatitis C positive]. 5. [Change in mental status, acute metabolic encephalopathy acute on chronic, improving]. 6. [Iron deficient, macrocytic Anemia of chronic disease]. 7. [Hypertension secondary to CKD. 8. Mild rhabdomyolysis 9. Accelerated hypertension 10. Polysubstance abuse including IV heroin and cocaine 11. History of noncompliance 12. Bipolar depression Plan: Continue on current medication regime , sodium bicarbonate, IV fluid hydration, Aranesp,monitoring and symptomatic treatment. Follow closely with nephrology. Further recommendations to follow. Prognosis guarded given multiple complex medical issues. High risk for readmissions given history of noncompliance, polysubstance abuse and CKD. Patient will need further outpatient workup regarding hepatitis C. The impression and plan of care has been dictated as directed. : I performed a H&P examination of this patient and discussed the same with the dictator. I agree with the dictator's note. Any additional findings/opinions/ etc. will be noted.].
[2016-07-16] MEDS: SODIUM CHLORIDE 0.45% 1,000 ML IV SCH (02:51)
[2016-07-16] MEDS: HYDROcodone/APAP 5-325MG 1 EACH TAB PO PRN ×2 (02:51→06:14)
[2016-07-16 07:48] VITALS: BP 161/89; PULSE 60; RESP 20; TEMP 97.2
[2016-07-16] MEDS: CALCIUM ACETATE 667 MG CAP PO SCH (07:49)
[2016-07-16] MEDS: PANTOPRAZOLE 40 MG TABLET PO SCH (07:49)
[2016-07-16] MEDS: HEPARIN SODIUM,PORCINE 5,000 UNIT/ML 1 ML VIAL SQ SCH ×2 (07:50→07:54)
[2016-07-16] MEDS: cloNIDine HCL 0.1 MG TAB PO SCH (07:50)
[2016-07-16] MEDS: SODIUM FERRIC GLUCONAT-SUCROSE 125 MG in SODIUM CHLORIDE 0.9% 100 ML IVPB SCH (07:51)
[2016-07-16] MEDS: NICOTINE 14MG/24HR PATCH TRANSDERM SCH (07:51)
[2016-07-16] MEDS: SODIUM POLYSTYRENE SULFONATE 15 GM/60 ML BOTTLE PO SCH (07:52)
[2016-07-16 09:13] LABS: Calcium 8.1 mg/dL (8.4-10.2); Potassium 4.8 mmol/L (3.5-5.1)
[2016-07-16 10:47] LABS: Mis test requested (Non-blood) TP Random Urine
--- NOTE | 2016-07-16 16:01 | P.PN ---
Subjective Date of service 07/16/2016. Progress note being dictated for Dr. Mejia. Interval history: This a 65-year-old gentleman admitted with acute on chronic renal failure, syncope, dehydration in a patient with polysubstance abuse including heroin and cocaine and multiple other medical issues. Hemodialysis recommended by nephrology, patient declining. Renal function slowly improving with IV fluid hydration. Denies chest pain, palpitations or increasing shortness of breath. Patient learned his mother was admitted at this hospital, patient left AMA this a.m. Objective - Vital Signs Vital signs: Vital Signs Temp 97.2 F L 07/16/16 07:00 Pulse 60 07/16/16 07:00 Resp 20 07/16/16 07:00 BP 161/89 07/16/16 07:00 Pulse Ox 95 07/16/16 07:00 Intake & Output 07/15/16 07/16/16 07/16/16 18:59 06:59 18:59 Intake Total 1000 240 Output Total 1850 300 Balance -850 -300 240 Intake: Oral 1000 240 Output: Urine 1850 300 Other: Voiding Method Urinal # Voids 1 1 - Exam PHYSICAL EXAM: VITAL SIGNS: [As above] GENERAL: [Sitting up in bed, no acute distress] HEENT: [Pupils equal conjunctiva normal.] NECK: [Supple, no JVD] RESPIRATORY EFFORT:[Normal] LUNGS: Bilateral bases diminished, occasional scattered rhonchi] CARDIOVASCULAR[regular S1 and S2, no edema] GI: [Abdomen soft, nontender, positive bowel sounds.] PSYCH: [Alert and oriented -3, mood and affect normal.] NEURO: No focal deficits - Labs CBC & Chem 7: 07/15/16 09:13 07/16/16 07:50 Labs: Abnormal Lab Results - Last 24 Hours (Table) 07/15/16 07/15/16 07/16/16 Range/Units 09:13 09:13 07:50 RBC 2.76 L (4.30-5.90) m/uL Hgb 8.5 L (13.0-17.5) gm/dL Hct 25.4 L (39.0-53.0) % Sodium 146 H (137-145) mmol/L Chloride 112 H 113 H (98-107) mmol/L Carbon Dioxide 20 L 19 L (22-30) mmol/L BUN 65 H 61 H (9-20) mg/dL Creatinine 6.51 H* 6.41 H* (0.66-1.25) mg/dL Glucose 119 H 153 H (74-99) mg/dL Calcium 7.3 L 8.1 L (8.4-10.2) mg/dL Microbiology - Last 24 Hours (Table) 07/11/16 19:12 Blood Culture - Preliminary Blood No Growth after 96 hours Assessment and Plan Plan: 1. [Acute on chronic renal failure, stage IV secondary to ischemic ATN related to cocaine and heroin abuse ,possibly prerenal factors, acute tubular necrosis with significant dehydration present on admission, improving]. Declining hemodialysis. 2. [Hyperkalemia secondary to acute renal failure hyperchloremia]. 3. [Hyperchloremic acidosis]. 4. [Hepatitis C positive]. 5. [Change in mental status, acute metabolic encephalopathy acute on chronic, improving]. 6. [Iron deficient, macrocytic Anemia of chronic disease]. 7. [Hypertension secondary to CKD. 8. Mild rhabdomyolysis 9. Accelerated hypertension 10. Polysubstance abuse including IV heroin and cocaine 11. History of noncompliance 12. Bipolar depression Plan: Patient would not wait for discharge recommendations, left AMA. The impression and plan of care has been dictated as directed. : I performed a H&P examination of this patient and discussed the same with the dictator. I agree with the dictator's note. Any additional findings/opinions/ etc. will be noted.].
== END 2016-07-16 09:43 | disposition left against medical advice (07) | DRG 682 ==
LOC: EC 10:28 → 6SEL 12:51 → 4MS4W 07-15 02:09
PROVIDERS: ADMIT Internal Medicine; ATTEND Internal Medicine
DX: N17.0 Acute kidney failure with tubular necrosis (principal); G93.41 Metabolic encephalopathy; E87.2 Acidosis; I12.0 Hypertensive chronic kidney disease with stage 5 chronic kidney disease or end stage renal disease; M62.82 Rhabdomyolysis; N39.0 Urinary tract infection, site not specified; E87.8 Other disorders of electrolyte and fluid balance, not elsewhere classified; N18.5 Chronic kidney disease, stage 5; D50.9 Iron deficiency anemia, unspecified; F11.10 Opioid abuse, uncomplicated; F14.10 Cocaine abuse, uncomplicated; E87.5 Hyperkalemia; B19.20 Unspecified viral hepatitis C without hepatic coma; D53.9 Nutritional anemia, unspecified; D63.1 Anemia in chronic kidney disease; E16.2 Hypoglycemia, unspecified; E78.5 Hyperlipidemia, unspecified; E86.0 Dehydration; F17.200 Nicotine dependence, unspecified, uncomplicated; F32.9 Major depressive disorder, single episode, unspecified; Z79.82 Long term (current) use of aspirin; Z79.899 Other long term (current) drug therapy; Z88.8 Allergy status to other drugs, medicaments and biological substances; Z91.19 Patient's noncompliance with other medical treatment and regimen
CPT/HCPCS: 36415; 70450; 71020; 80048; 80053; 80061; 80074; 80306; 81001; 82140; 82550; 82553; 82570; 82728; 83540; 83550; 84100; 84156; 84484; 85025; 85610; 85730; 87040; 87086; 87901; 93005; 96361; 96365; 96375; 99291

== ENCOUNTER 2016-09-30 10:09 | Emergency (ER) | payer MEDICARE ==
[2016-09-30 10:28] VITALS: RESP 18
[2016-09-30] MEDS ORDERED: HYDROcodone/APAP 5-325MG 1 EACH TAB PO STA (10:35)
[2016-09-30] MEDS ORDERED: FUROSEMIDE 80 MG TAB PO STA (10:38)
[2016-09-30] MEDS ORDERED: amLODIPine 10 MG TAB PO STA (10:38)
--- NOTE | 2016-09-30 10:38 | ED ---
General Adult HPI - General Chief complaint: Back Pain/Injury Stated complaint: back pain Time Seen by Provider: 09/30/16 10:28 Source: patient, RN notes reviewed Mode of arrival: ambulatory Limitations: no limitations - History of Present Illness Initial comments: Patient is a pleasant 58-year-old male presenting to the emergency Department with lower back pain. Patient was lifting a dresser that was heavier than he thought it was a few days ago. Patient hurt his back. Patient does have some chronic back pains however not quite as bad as this. Patient states medication he was prescribed previously did work. Patient states he has run out of this and does not get in to see his doctor until Thursday. Discomfort is positional. No abdominal pain. No leg weakness. No tenderness or retention of bowel or bladder. No fever. - Related Data Home Medications Medication Instructions Recorded Confirmed Ibuprofen [Motrin] 400 mg PO Q6HR PRN 09/30/16 09/30/16 Previous Rx's Medication Instructions Recorded Hydrocodone/Acetaminophen [[place] 1 each PO Q4HR PRN #15 tab 09/30/16 5-325] Allergies Allergy/AdvReac Type Severity Reaction Status Date / Time aspirin AdvReac Nausea & Verified 09/30/16 10:28 Vomiting Review of Systems ROS Statement: Those systems with pertinent positive or pertinent negative responses have been documented in the HPI. ROS Other: All systems not noted in ROS Statement are negative. Constitutional: Denies: fever Eyes: Denies: eye pain ENT: Denies: ear pain Respiratory: Denies: cough Cardiovascular: Denies: chest pain Endocrine: Denies: fatigue Gastrointestinal: Denies: abdominal pain Genitourinary: Denies: dysuria Musculoskeletal: Reports: back pain Skin: Denies: rash Neurological: Denies: weakness Past Medical History Past Medical History: Hyperlipidemia, Renal Disease Additional Past Medical History / Comment(s): "spot on liver" History of Any Multi-Drug Resistant Organisms: None Reported Past Surgical History: Orthopedic Surgery Additional Past Surgical History / Comment(s): 07/01/16 NICO. Past Anesthesia/Blood Transfusion Reactions: No Reported Reaction Past Psychological History: Bipolar, Depression Additional Psychological History / Comment(s): Pt resides with one of his brothers. He uses no device. He does not drive. Smoking Status: Current every day smoker Past Alcohol Use History: Occasional Additional Past Alcohol Use History / Comment(s): Pt started smoking around age 7 or 8 yrs. He drinks on a daily basis-brother states he is an alcoholic. Past Drug Use History: None Reported Additional Drug Use History / Comment(s): Pt states he uses heroin and last used yesterday-07/10/16. He states he has used heroin intravaneously or skin pops. - Past Family History Father Additional Family Medical History / Comment(s): Father was an alcoholic and of this at the age of 44yrs. Mother Family Medical History: No Reported History Additional Family Medical History / Comment(s): Mother is 88yrs old and healthy. Brother(s) Family Medical History: Diabetes Mellitus General Exam Limitations: no limitations General appearance: alert, in no apparent distress Head exam: Present: atraumatic Eye exam: Present: normal appearance ENT exam: Present: normal oropharynx Neck exam: Present: normal inspection Respiratory exam: Present: normal lung sounds bilaterally Cardiovascular Exam: Present: regular rate, normal rhythm Expanded Peripheral pulses: 2+: Dorsalis Pedis (R), Dorsalis Pedis (L) GI/Abdominal exam: Present: soft. Absent: distended, tenderness, pulsatile mass Extremities exam: Present: normal inspection, other (Straight leg raise positive on the left). Absent: pedal edema, calf tenderness Back exam: Present: tenderness (Mild tenderness left lumbar region) Neurological exam: Present: alert. Absent: motor sensory deficit Psychiatric exam: Present: normal affect, normal mood Skin exam: Absent: rash Course Vital Signs 09/30/16 09/30/16 10:25 12:26 Temperature 97.8 F 97.5 F L Pulse Rate 87 78 Respiratory 18 18 Rate Blood Pressure 225/111 181/102 O2 Sat by Pulse 99 98 Oximetry - Reevaluation(s) Reevaluation #1: 09/30/16 10:41 Patient states he did not take his blood pressure medicine this morning. Previous chart reviewed including x-ray results. Medical Decision Making - Medical Decision Making Patient reevaluated and resting comfortably in bed. Patient comfortable with discharge. Blood pressure has improved. - Radiology Data Radiology results: report reviewed (Abdominal aortic ultrasound is slightly suboptimal without evidence of greater than 3 cm aortic aneurysm.) Disposition Clinical Impression: Hypertension, Low back pain Disposition: HOME SELF-CARE Condition: Stable Instructions: Acute Low Back Pain (ED) Additional Instructions: Please follow-up with your doctor this week. Return for increased pain, weakness, loss of control of bowel or bladder, abdominal pain, worsening symptoms or other concerns. Prescriptions: Hydrocodone/Acetaminophen [[place] 5-325] 1 each PO Q4HR PRN #15 tab PRN Reason: Pain Referrals: None,Stated [Primary Care Provider] - 1-2 days Luc Lynch DO [Doctor of Osteopathic Medicine] - 1-2 days
--- NOTE | 2016-09-30 11:45 | US ---
EXAMINATION TYPE: US duplex aorta DATE OF EXAM: 09/30/2016 11:00 AM COMPARISON: NONE CLINICAL HISTORY: Pain. back pain EXAM MEASUREMENTS: Abdominal Aorta: Proximal: 2.8 x 2.5cm Mid: 2.0 x 2.2cm Distal: 1.6 x 1.5cm Bifurcation: obscured Proximal aorta is ectatic . Exam limitations due to large amount of overlying bowel content. Bifurcat ion obscured Slightly suboptimal study due to patient's body habitus and overlying bowel gas. Visualized portion o f the abdominal aorta shows no aneurysmal change. Bifurcation is obscured. IMPRESSION: Suboptimal study without ultrasound evidence for greater than 3 cm abdominal aortic aneur ysm though bifurcation is obscured.
[2016-09-30 12:26] VITALS: PULSE 78; TEMP 97.5
[2016-09-30] MEDS ORDERED: hydrALAZINE HCL 25 MG TAB PO STA (12:46)
[2016-09-30 13:27] VITALS: BP 182/102
== END 2016-09-30 13:27 | disposition home or self-care (01) ==
LOC: EC 10:09
DX: M54.5 Low back pain (principal); I10 Essential (primary) hypertension; F17.200 Nicotine dependence, unspecified, uncomplicated; Z88.6 Allergy status to analgesic agent; X50.0XXA Overexertion from strenuous movement or load, initial encounter; Y93.89 Activity, other specified
CPT/HCPCS: 93979; 99283

== ENCOUNTER 2016-10-10 07:07 | Emergency (ER) | payer MEDICARE ==
[2016-10-10 07:11] VITALS: PULSE 97; RESP 18; TEMP 97.1
[2016-10-10 07:24] VITALS: BP 155/97
[2016-10-10] MEDS ORDERED: ORPHENADRINE 30 MG/ML 2 ML VIAL IM STA (07:35)
--- NOTE | 2016-10-10 07:39 | ED ---
General Adult HPI - General Chief complaint: Back Pain/Injury Stated complaint: back pain Time Seen by Provider: 10/10/16 07:20 Source: patient, RN notes reviewed Mode of arrival: wheelchair Limitations: no limitations - History of Present Illness Initial comments: Patient is a pleasant 66-year-old male presenting to the emergency Department with low back pain. Patient does have some chronic lower back pain. Symptoms worsen a couple weeks ago with moving a dresser. Discomfort is left lumbar region. Discomfort is positional. No incontinence or retention of bowel or bladder. No weakness. Patient requests pain shot. Patient states he was unable to follow-up with his doctor secondary to insurance reasons however now states he'll follow-up on Thursday. - Related Data Home Medications Medication Instructions Recorded Confirmed Ibuprofen [Motrin] 600 mg PO Q8HR PRN 10/10/16 10/10/16 Previous Rx's Medication Instructions Recorded Hydrocodone/Acetaminophen [[place] 1 each PO Q4HR PRN #15 tab 10/10/16 5-325] Allergies Allergy/AdvReac Type Severity Reaction Status Date / Time aspirin AdvReac Nausea & Verified 10/10/16 07:12 Vomiting Review of Systems ROS Statement: Those systems with pertinent positive or pertinent negative responses have been documented in the HPI. ROS Other: All systems not noted in ROS Statement are negative. Constitutional: Denies: fever Eyes: Denies: eye pain ENT: Denies: ear pain Respiratory: Denies: dyspnea Cardiovascular: Denies: chest pain Endocrine: Denies: fatigue Gastrointestinal: Denies: abdominal pain Genitourinary: Denies: dysuria Musculoskeletal: Reports: back pain Skin: Denies: rash Neurological: Denies: weakness Past Medical History Past Medical History: Hyperlipidemia, Renal Disease Additional Past Medical History / Comment(s): "spot on liver" History of Any Multi-Drug Resistant Organisms: None Reported Past Surgical History: Orthopedic Surgery Additional Past Surgical History / Comment(s): 07/01/16 NICO. Past Anesthesia/Blood Transfusion Reactions: No Reported Reaction Past Psychological History: Bipolar, Depression Additional Psychological History / Comment(s): Pt resides with one of his brothers. He uses no device. He does not drive. Smoking Status: Current every day smoker Past Alcohol Use History: Occasional Additional Past Alcohol Use History / Comment(s): Pt started smoking around age 7 or 8 yrs. He drinks on a daily basis-brother states he is an alcoholic. Past Drug Use History: None Reported Additional Drug Use History / Comment(s): Pt states he uses heroin and last used yesterday-07/10/16. He states he has used heroin intravaneously or skin pops. - Past Family History Father Additional Family Medical History / Comment(s): Father was an alcoholic and of this at the age of 44yrs. Mother Family Medical History: No Reported History Additional Family Medical History / Comment(s): Mother is 88yrs old and healthy. Brother(s) Family Medical History: Diabetes Mellitus General Exam Limitations: no limitations General appearance: alert, in no apparent distress Head exam: Present: atraumatic Eye exam: Present: normal appearance, PERRL ENT exam: Present: normal oropharynx Neck exam: Present: normal inspection Respiratory exam: Present: normal lung sounds bilaterally Cardiovascular Exam: Present: regular rate, normal rhythm Expanded Peripheral pulses: 2+: Posterior Tibialis (R), Posterior Tibialis (L) GI/Abdominal exam: Present: soft. Absent: distended, tenderness, pulsatile mass Extremities exam: Present: normal inspection Back exam: Present: paraspinal tenderness (Mild left-sided) Neurological exam: Absent: motor sensory deficit Psychiatric exam: Present: normal affect, normal mood Skin exam: Absent: rash Course Vital Signs 10/10/16 10/10/16 07:09 07:16 Temperature 97.1 F L Pulse Rate 97 Respiratory 18 Rate Blood Pressure 197/88 155/97 O2 Sat by Pulse 95 Oximetry Disposition Clinical Impression: Low back pain Disposition: HOME SELF-CARE Condition: Stable Instructions: Chronic Back Pain (ED) Additional Instructions: Please follow-up with your doctor Thursday as planned. Return for weakness, loss of control of bowel or bladder, worsening symptoms or other concerns. Prescriptions: Hydrocodone/Acetaminophen [[place] 5-325] 1 each PO Q4HR PRN #15 tab PRN Reason: Pain Referrals: None,Stated [Primary Care Provider] - 1-2 days Luc Lynch DO [Doctor of Osteopathic Medicine] - 1-2 days
== END 2016-10-10 08:10 | disposition home or self-care (01) ==
LOC: EC 07:07
DX: M54.5 Low back pain (principal); Z88.6 Allergy status to analgesic agent; F17.200 Nicotine dependence, unspecified, uncomplicated
CPT/HCPCS: 99283; 96372; J2360

== ENCOUNTER 2016-10-15 20:22 | Inpatient (IN) | payer MEDICARE ==
[2016-10-15] MEDS ORDERED: RX INFO: IV CONTRAST WAS GIVEN 1 EACH MISC MISCELLANE PRN (22:26)
--- NOTE | 2016-10-15 22:30 | ED ---
General Adult HPI - General Chief complaint: Abdominal Pain Stated complaint: abd pain sob Time Seen by Provider: 10/15/16 21:20 Source: patient, RN notes reviewed Mode of arrival: ambulatory Limitations: no limitations - History of Present Illness Initial comments: This is a 66-year-old male presents emergency room complaining of abdominal pain for 3 days. Patient states he's had no previous surgeries and he has no medical problems. Patient denies taking any medications whatsoever per patient denies any drug use. Patient denies any alcohol use. Patient states the pain is diffuse throughout his whole abdomen. Patient states walking even hurts him. Patient told the nurse out front which he was having chest pains I asked him about it he pointed to his epigastric region said this is the area that hurts. He told me he had no chest pain. Patient denies any shortness of breath or difficulty breathing. Patient denies any fever chills or cough. Patient denies any back pain. Patient denies any recent injury or trauma. Patient denies nausea vomiting or diarrhea. Patient admits to doing cocaine recently. - Related Data Home Medications Medication Instructions Recorded Confirmed No Known Home Medications [No 10/15/16 10/15/16 Known Home Medications] Allergies Allergy/AdvReac Type Severity Reaction Status Date / Time aspirin AdvReac Nausea & Verified 10/15/16 21:59 Vomiting Review of Systems ROS Statement: Those systems with pertinent positive or pertinent negative responses have been documented in the HPI. ROS Other: All systems not noted in ROS Statement are negative. Past Medical History Past Medical History: Hyperlipidemia, Renal Disease Additional Past Medical History / Comment(s): "spot on liver" History of Any Multi-Drug Resistant Organisms: None Reported Past Surgical History: Orthopedic Surgery Additional Past Surgical History / Comment(s): 07/01/16 NICO. Past Anesthesia/Blood Transfusion Reactions: No Reported Reaction Past Psychological History: Bipolar, Depression Additional Psychological History / Comment(s): Pt resides with one of his brothers. He uses no device. He does not drive. Smoking Status: Current every day smoker Past Alcohol Use History: Occasional Additional Past Alcohol Use History / Comment(s): Pt started smoking around age 7 or 8 yrs. He drinks on a daily basis-brother states he is an alcoholic. Past Drug Use History: None Reported Additional Drug Use History / Comment(s): Pt states he uses heroin and last used yesterday-07/10/16. He states he has used heroin intravaneously or skin pops. - Past Family History Father Additional Family Medical History / Comment(s): Father was an alcoholic and of this at the age of 44yrs. Mother Family Medical History: No Reported History Additional Family Medical History / Comment(s): Mother is 88yrs old and healthy. Brother(s) Family Medical History: Diabetes Mellitus General Exam - General Exam Comments Initial Comments: GENERAL: Patient is well-developed and well-nourished. Patient is nontoxic and well- hydrated and is in mild distress. ENT: Neck is soft and supple. No significant lymphadenopathy is noted. Oropharynx is clear. Moist mucous membranes. Neck has full range of motion without eliciting any pain. EYES: The sclera were anicteric and conjunctiva were pink and moist. Extraocular movements were intact and pupils were equal round and reactive to light. Eyelids were unremarkable. PULMONARY: Unlabored respirations. Good breath sounds bilaterally. No audible rales rhonchi or wheezing was noted. CARDIOVASCULAR: There is a regular rate and rhythm without any murmurs gallops or rubs. ABDOMEN: Abdomen is diffusely tender the patient is guarding making it difficult to get a good exam SKIN: Skin is clear with no lesions or rashes and otherwise unremarkable. NEUROLOGIC: Patient is alert and oriented x3. Cranial nerves II through XII are grossly intact. Motor and sensory are also intact. Normal speech, volume and content. Symmetrical smile. MUSCULOSKELETAL: Normal extremities with adequate strength and full range of motion. No lower extremity swelling or edema. No calf tenderness. LYMPHATICS: No significant lymphadenopathy is noted PSYCHIATRIC: Normal psychiatric evaluation. Normal interpersonal interactions appears functionally intact in deals appropriately with others. No signs of depression. No signs of anxiety. Limitations: no limitations Course Vital Signs 10/15/16 21:12 Temperature 98.5 F Pulse Rate 105 H Respiratory 20 Rate Blood Pressure 129/69 O2 Sat by Pulse 94 L Oximetry Procedures - Phlebotomy Reason for Blood Draw by MD: RN/lab unable Obtained Bloods via: femoral artery stick Estimated cc's Blood Obtained: 10 Medical Decision Making - Medical Decision Making EKG shows a normal sinus rhythm at 90 bpm WA interval 156 QRS is 90 QT interval 360 QTC is 459. Patient's EKG shows no ST segment elevation or depression or T wave abnormalities are noted. Patient's CAT scan shows inflamed pancreas. Enzymes also showed the patient has pain continues. I spoke with Dr. Romano agreed to admit the patient admitted the patient. I spoke with Dr. Maradiaga laborer electroplating she wanted the patient given 3 units of bicarb and T5 with 3 units of bicarb given at 150 mL an hour. Continue the Rocephin for the urinary tract infection - Lab Data Result diagrams: 10/15/16 23:10 10/15/16 23:43 Lab Results 10/15/16 10/15/16 10/15/16 Range/Units 23:10 23:10 23:28 WBC 6.5 (3.8-10.6) k/uL RBC 3.33 L (4.30-5.90) m/uL Hgb 10.8 L (13.0-17.5) gm/dL Hct 32.3 L (39.0-53.0) % MCV 97.1 (80.0-100.0) fL MCH 32.5 (25.0-35.0) pg MCHC 33.5 (31.0-37.0) g/dL RDW 14.5 (11.5-15.5) % Plt Count 274 (150-450) k/uL Neutrophils % 72 % Lymphocytes % 17 % Monocytes % 6 % Eosinophils % 2 % Basophils % 0 % Neutrophils # 4.7 (1.3-7.7) k/uL Lymphocytes # 1.1 (1.0-4.8) k/uL Monocytes # 0.4 (0-1.0) k/uL Eosinophils # 0.1 (0-0.7) k/uL Basophils # 0.0 (0-0.2) k/uL Sodium (137-145) mmol/L Potassium (3.5-5.1) mmol/L Chloride (98-107) mmol/L Carbon Dioxide (22-30) mmol/L Anion Gap mmol/L BUN (9-20) mg/dL Creatinine (0.66-1.25) mg/dL Est GFR (MDRD) Af Amer (>60 ml/min/1.73 sqM) Est GFR (MDRD) Non-Af (>60 ml/min/1.73 sqM) Glucose (74-99) mg/dL Plasma Lactic Acid Bereket 0.8 (0.7-2.0) mmol/L Calcium (8.4-10.2) mg/dL Total Bilirubin (0.2-1.3) mg/dL AST (17-59) U/L ALT (21-72) U/L Alkaline Phosphatase (38-126) U/L Total Creatine Kinase (55-170) U/L CK-MB (CK-2) (0.0-2.4) ng/mL CK-MB (CK-2) Rel Index Troponin I (0.000-0.034) ng/mL Total Protein (6.3-8.2) g/dL Albumin (3.5-5.0) g/dL Amylase (30-110) U/L Lipase (23-300) U/L Urine Color Yellow Urine Appearance Cloudy (Clear) Urine pH 7.5 (5.0-8.0) Ur Specific [place] 1.011 (1.001-1.035) Urine Protein 3+ H (Negative) Urine Glucose (UA) Negative (Negative) Urine Ketones Negative (Negative) Urine Blood Small H (Negative) Urine Nitrite Negative (Negative) Urine Bilirubin Negative (Negative) Urine Urobilinogen <2.0 (<2.0) mg/dL Ur Leukocyte Esterase Large H (Negative) Urine RBC 32 H (0-5) /hpf Urine WBC >182 H (0-5) /hpf Urine WBC Clumps Moderate H (None) /hpf Ur Squamous Epith Cells 10 H (0-4) /hpf Urine Opiates Screen (NotDetected) Ur Oxycodone Screen (NotDetected) Urine Methadone Screen (NotDetected) Ur Propoxyphene Screen (NotDetected) Ur Barbiturates Screen (NotDetected) U Tricyclic Antidepress (NotDetected) Ur Phencyclidine Scrn (NotDetected) Ur Amphetamines Screen (NotDetected) U Methamphetamines Scrn (NotDetected) U Benzodiazepines Scrn (NotDetected) Urine Cocaine Screen (NotDetected) U Marijuana (THC) Screen (NotDetected) 10/15/16 10/15/16 10/15/16 Range/Units 23:28 23:43 23:43 WBC (3.8-10.6) k/uL RBC (4.30-5.90) m/uL Hgb (13.0-17.5) gm/dL Hct (39.0-53.0) % MCV (80.0-100.0) fL MCH (25.0-35.0) pg MCHC (31.0-37.0) g/dL RDW (11.5-15.5) % Plt Count (150-450) k/uL Neutrophils % % Lymphocytes % % Monocytes % % Eosinophils % % Basophils % % Neutrophils # (1.3-7.7) k/uL Lymphocytes # (1.0-4.8) k/uL Monocytes # (0-1.0) k/uL Eosinophils # (0-0.7) k/uL Basophils # (0-0.2) k/uL Sodium 134 L (137-145) mmol/L Potassium 6.1 H (3.5-5.1) mmol/L Chloride 107 (98-107) mmol/L Carbon Dioxide <5 L* (22-30) mmol/L Anion Gap 22 mmol/L BUN 111 H* (9-20) mg/dL Creatinine 13.60 H* (0.66-1.25) mg/dL Est GFR (MDRD) Af Amer 4 (>60 ml/min/1.73 sqM) Est GFR (MDRD) Non-Af 4 (>60 ml/min/1.73 sqM) Glucose 74 (74-99) mg/dL Plasma Lactic Acid Bereket (0.7-2.0) mmol/L Calcium 8.4 (8.4-10.2) mg/dL Total Bilirubin 0.4 (0.2-1.3) mg/dL AST 48 (17-59) U/L ALT 45 (21-72) U/L Alkaline Phosphatase 110 (38-126) U/L Total Creatine Kinase 85 (55-170) U/L CK-MB (CK-2) 1.8 (0.0-2.4) ng/mL CK-MB (CK-2) Rel Index 2.1 Troponin I <0.012 (0.000-0.034) ng/mL Total Protein 6.9 (6.3-8.2) g/dL Albumin 3.5 (3.5-5.0) g/dL Amylase 1634 H* (30-110) U/L Lipase 73629 H (23-300) U/L Urine Color Urine Appearance (Clear) Urine pH (5.0-8.0) Ur Specific [place] (1.001-1.035) Urine Protein (Negative) Urine Glucose (UA) (Negative) Urine Ketones (Negative) Urine Blood (Negative) Urine Nitrite (Negative) Urine Bilirubin (Negative) Urine Urobilinogen (<2.0) mg/dL Ur Leukocyte Esterase (Negative) Urine RBC (0-5) /hpf Urine WBC (0-5) /hpf Urine WBC Clumps (None) /hpf Ur Squamous Epith Cells (0-4) /hpf Urine Opiates Screen Detected H (NotDetected) Ur Oxycodone Screen Not Detected (NotDetected) Urine Methadone Screen Not Detected (NotDetected) Ur Propoxyphene Screen Not Detected (NotDetected) Ur Barbiturates Screen Not Detected (NotDetected) U Tricyclic Antidepress Not Detected (NotDetected) Ur Phencyclidine Scrn Not Detected (NotDetected) Ur Amphetamines Screen Not Detected (NotDetected) U Methamphetamines Scrn Not Detected (NotDetected) U Benzodiazepines Scrn Not Detected (NotDetected) Urine Cocaine Screen Detected H (NotDetected) U Marijuana (THC) Screen Not Detected (NotDetected) Critical Care Time Critical Care Time: Yes Total Critical Care Time: 35 Disposition Clinical Impression: Pancreatitis, Acute on chronic renal failure, Urinary tract infection, Cocaine abuse Disposition: ADMITTED IP TO THIS [facility] Time of Disposition: 01:22
[2016-10-15 23:20] LABS: Basophils % (A) 0 %; CH 31.9; CHCM 33.1; Eosinophils # (A) 0.1 k/uL (0-0.7); Eosinophils % (A) 2 %; HCT 32.3 % (39.0-53.0); HGB 10.8 gm/dL (13.0-17.5); Luc # (Auto) 0.19; Luc % (Auto) 3; Lymphocytes # (A) 1.1 k/uL (1.0-4.8); Lymphocytes % (A) 17 %; MCH 32.5 pg (25.0-35.0); MCHC 33.5 g/dL (31.0-37.0); MCV 97.1 fL (80.0-100.0); Monocytes # (A) 0.4 k/uL (0-1.0); Monocytes % (A) 6 %; Neutrophils # (A) 4.7 k/uL (1.3-7.7); Neutrophils % (A) 72 %; RBC 3.33 m/uL (4.30-5.90); RDW 14.5 % (11.5-15.5); WBC 6.5 k/uL (3.8-10.6); WBC (Perox) 6.99
[2016-10-15 23:43] LABS: Appearance,Urine Cloudy (Clear); Bilirubin,Urine Negative (Negative); Glucose,Urine (UA) Negative (Negative); Ketones,Urine Negative (Negative); Leukocyte Esterase,Urine Large (Negative); Nitrite,Urine Negative (Negative); PH, Urine 7.5 (5.0-8.0); Particle Count 13014; Protein,Urine 3+ (Negative); RBC,Urine 32 /hpf (0-5); Specific Gravity,Urine 1.011 (1.001-1.035); Squamous Epithelial Cell,Urine 10 /hpf (0-4); UA Billing (MACRO vs. MICRO) MICRO; Urobilinogen,Urine <2.0 mg/dL (<2.0); WBC,Urine >182 /hpf (0-5)
[2016-10-16] MEDS ORDERED: cefTRIAXone 1,000 MG VIAL (IM USE) IM STA (00:03)
[2016-10-16 00:18] LABS: ALT 45 U/L (21-72); AST 48 U/L (17-59); Alkaline Phosphatase 110 U/L (38-126); Calcium 8.4 mg/dL (8.4-10.2); Chloride 107 mmol/L (98-107); Glucose 74 mg/dL (74-99); Potassium 6.1 mmol/L (3.5-5.1); Sodium 134 mmol/L (137-145); Total Bilirubin 0.4 mg/dL (0.2-1.3); Total Protein 6.9 g/dL (6.3-8.2)
[2016-10-16 00:23] LABS: Anion Gap 22 mmol/L
[2016-10-16 00:25] LABS: Creatine Kinase 85 U/L (55-170)
--- NOTE | 2016-10-16 00:29 | CT ---
INDICATION: Abdominal pain TECHNIQUE: Multiple, contiguous axial cuts of the abdomen and pelvis are obtained from the lung bases to the ischial tuberosities. No IV or oral contrast is given. Sagittal and coronal reformatted images are available. Normal noncontrast CT of the abdomen and pelvis. This CT exam was performed using one or more of the following dose reduction techniques: automated exposure control, adjustment of the mA and/or kV according to patient size, and/or use of iterative reconstruction technique. DOSIMETRY: CTDIvol 12.57 mGy; DLP 546.66 COMPARISON: None available. FINDINGS: Evaluation is limited without intravenous contrast. The lung bases are clear. The gallbladder is distended and the common bile duct is mildly enlarged for age and measuring 9 mm. There is enlargement of the pancreas, notably the pancreatic head, with peripancreatic fat stranding, concerning for acute pancreatitis. There are coarse calcifications in the pancreatic head compatible with chronic pancreatitis. Underlying pancreatic head mass cannot be excluded on the basis of this exam. The pancreatic duct is nondilated. There are inflammatory changes of the duodenum, likely reactive duodenitis. The liver, spleen, and adrenal glands are unremarkable. Both kidneys are mildly atrophic. There is no hydronephrosis. There is aortoiliac atherosclerosis without aneurysm. No adenopathy is evident. There is no evidence of bowel obstruction. Visualized appendix is normal. There are scattered left hemicolon diverticula without evidence of acute diverticulitis. There are bilateral fat-containing inguinal hernias with partial extension of the anterior urinary bladder into the right inguinal hernia. The urinary bladder is otherwise unremarkable. There is mild prostatomegaly. There are no acute osseous findings are suspicious osseous lesions. There is lumbar spondylosis with severe multilevel degenerative disc disease and extensive Schmorl node formation in multiple vertebral bodies. Sclerotic focus in the left superior pubic ramus likely represents a bone island. IMPRESSION: 1. Edematous and inflamed pancreas with coarse calcifications in the pancreatic head, likely representing acute on chronic pancreatitis. Correlate with serum lipase. Underlying pancreatic head mass cannot be definitively excluded. 2. Gallbladder distention and mild enlargement of the common bile duct measuring [address] findings of acute cholecystitis. 3. Bilateral fat-containing inguinal hernias, with partial extension of the anterior urinary bladder into the right inguinal hernia.
[2016-10-16 00:38] LABS: Non-African American GFR(MDRD) 4 (>60 ml/min/1.73 sqM)
[2016-10-16 00:39] LABS: Carbon Dioxide <5 mmol/L (22-30)
[2016-10-16 00:40] LABS: Blood Urea Nitrogen 111 mg/dL (9-20)
[2016-10-16 00:41] LABS: Amylase 1634 U/L (30-110); Creatine Kinase MB 1.8 ng/mL (0.0-2.4); Troponin I <0.012 ng/mL (0.000-0.034)
[2016-10-16] MEDS ORDERED: SODIUM ACETATE 50 MEQ in WATER FOR INJECTION, STERILE 250 ML IV ONE ×5 (01:17→01:18)
[2016-10-16] MEDS ORDERED: SODIUM CHLORIDE 0.9% 1,000 ML IV ONE (01:22)
[2016-10-16] MEDS ORDERED: ONDANSETRON 4 MG/2 ML VIAL IM STA (02:13)
[2016-10-16] MEDS ORDERED: ONDANSETRON 4 MG/2 ML VIAL IVP PRN (02:17)
[2016-10-16] MEDS: HYDROmorphone 1 MG/ML 1 ML SYRINGE IVP PRN ×6 (02:18→21:32)
[2016-10-16] MEDS ORDERED: DEXTROSE 50%-WATER 50 ML SYRINGE IVP ONE (03:03)
[2016-10-16 03:05] LABS: Glucose,Whole Blood 59 mg/dL (75-99)
[2016-10-16] MEDS: DEXTROSE 5% IN WATER 1,000 ML with SODIUM ACETATE 150 MEQ IV SCH ×2 (03:20→08:40)
[2016-10-16 03:23] LABS: Glucose,Whole Blood 196 mg/dL (75-99)
[2016-10-16 08:07] LABS: Glucose,Whole Blood 88 mg/dL (75-99)
[2016-10-16 08:48] LABS: Calcium 7.5 mg/dL (8.4-10.2); Total Bilirubin 0.5 mg/dL (0.2-1.3)
[2016-10-16 09:45] LABS: CH 32.8; CHCM 36.2; HCT 24.8 % (39.0-53.0); HDW 3.29; Immature Gran Flag Marked; MCH 33.3 pg (25.0-35.0); MCHC 36.4 g/dL (31.0-37.0); Mean Platelet Volume 7.6; RBC 2.71 m/uL (4.30-5.90); RDW 14.5 % (11.5-15.5); WBC 6.2 k/uL (3.8-10.6); WBC (Perox) 6.23
[2016-10-16 09:51] LABS: MCV 91.3 fL (80.0-100.0)
--- NOTE | 2016-10-16 10:16 | P.NPCON ---
History of Present Illness - Reason for Consult chronic renal failure - History of Present Illness Reason for consultation: Chronic kidney disease History of present illness: Patient is a 66-year-old male seen in renal consultation for chronic kidney disease. Patient has chronic any disease stage V for the past 3 years with his creatinine being near 6. He was elevated at 13.6 this admission and is down to 12.56 today. He was extremely acidotic with a bicarbonate level of less than 5. He was started on a isotonic sodium bicarbonate drip and bicarb level today is up to 14. He has been voiding although [place] catheter could not be inserted. Patient presented to the hospital with abdominal pain this started about 3 days ago. He also has a long-standing history of using cocaine and heroin. He states he last used cocaine about 3 days ago. He's also been taking Motrin off at least 5-6 tabs daily for abdominal pain. He states the pain is sharp and has been radiating to his back which is causing difficulty with ambulation. He has atrophic kidneys. He also has history of hepatitis C which according to him has not been treated. He does have proteinuria on urinalysis. Denies any vomiting. Did have diarrhea the last 3 days and also admits to noticing blood in his stool. His lipase level was over 14,000 this admission. Abdominal pain is overall improved. Denies chest pain or shortness of breath. Vital signs are stable. General: The patient appeared well nourished and normally developed. HEENT: Head exam is unremarkable. Neck is without jugular venous distension. LUNGS: Lungs are clear to auscultation and percussion. Breath sounds decreased. HEART: Rate and Rhythm are regular. First and second heart sounds normal. No murmurs, rubs or gallops. ABDOMEN: Abdominal exam reveals normal bowel sounds. Mildly tender to palpation. EXTREMITITES: No clubbing, cyanosis, or edema. Past Medical History Past Medical History: Hyperlipidemia, Renal Disease Additional Past Medical History / Comment(s): "spot on liver" History of Any Multi-Drug Resistant Organisms: None Reported Past Surgical History: Orthopedic Surgery Additional Past Surgical History / Comment(s): 07/01/16 NICO. Past Anesthesia/Blood Transfusion Reactions: No Reported Reaction Past Psychological History: Bipolar, Depression Additional Psychological History / Comment(s): Pt resides with one of his brothers. He does not drive. Smoking Status: Current every day smoker Past Alcohol Use History: Occasional Additional Past Alcohol Use History / Comment(s): Pt started smoking around age 7 or 8 yrs. He drinks on a daily basis-brother states he is an alcoholic. Past Drug Use History: None Reported Additional Drug Use History / Comment(s): Pt states he uses crack cocaine approx 2 weeks ago - Past Family History Father Additional Family Medical History / Comment(s): Father was an alcoholic and of this at the age of 44yrs. Mother Family Medical History: No Reported History Additional Family Medical History / Comment(s): Mother is 88yrs old and healthy. Brother(s) Family Medical History: Diabetes Mellitus Medications and Allergies Home Medications Medication Instructions Recorded Confirmed Type No Known Home Medications [No 10/15/16 10/15/16 History Known Home Medications] Allergies Allergy/AdvReac Type Severity Reaction Status Date / Time aspirin AdvReac Nausea & Verified 10/15/16 21:59 Vomiting Physical Exam Vitals: Vital Signs Temp Pulse Resp BP Pulse Ox 10/16/16 08:00 98.1 F 85 15 137/84 98 10/16/16 03:30 98.1 F 100 20 133/85 100 10/16/16 02:44 98 18 170/90 100 10/16/16 01:52 90 18 170/83 96 Intake and Output 10/15/16 10/16/16 10/16/16 22:59 06:59 14:59 Intake Total 300 300 Output Total 270 Balance 30 300 Intake: Intake, IV Titration 300 300 Amount Dextrose 5% in Water 1, 300 300 000 ml @ 150 mls/hr IV . Q7H10M BRITTON with Sodium Acetate 150 meq Rx#: [id number] Output: Urine 270 Other: Voiding Method Urinal Weight 61.9 kg Results - Lab Results Most recent lab results Calcium 7.5 mg/dL (8.4-10.2) L 10/16/16 08:13 10/16/16 08:13 10/16/16 08:13 Assessment and Plan Plan: Assessment: #1. Nonoliguric acute kidney injury secondary to ischemic ATN secondary to poor oral intake and use of nonsteroidals. Further worsened with the use of cocaine. Creatinine 13.6 on admission and down to 12.56 today. CK level 85. #2. Chronic kidney disease stage V with baseline creatinine near 6. Patient has been refusing dialysis despite detailed conversations regarding the need to start. 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 His kidneys are atrophied and doing a kidney biopsy at this stage would not be beneficial and will actually be a high risk procedure. #3. Acute pancreatitis. #4. Hepatitis C. #5. Anion gap metabolic acidosis secondary to acute kidney injury. #6. Hyperkalemia secondary to acute kidney injury and metabolic acidosis. Improved. #7. Anemia. Rule out iron deficiency. #8. Illicit drug abuse. Plan: Maintain isotonic sodium bicarbonate drip to be run at 150 mL an hour. Check iron studies. Avoid nephrotoxic agents and hypotensive episodes. Strict I's and O's. GI recommendations pending. I again discussed in detail with him the need to start renal replacement therapy. Risks and benefits were discussed. He continues to refuse at this time. Thank you for the consultation. I will continue to follow the patient with you during his hospital stay.
[2016-10-16 10:49] LABS: % Iron Saturation 31.7 % (20-50)
[2016-10-16 11:20] LABS: Add Differential Manual Differential
[2016-10-16 11:22] LABS: Nucleated Red Blood Cells 0 /100 WBC (0-0); Total Cells Counted 100
[2016-10-16] MEDS ORDERED: WATER FOR INJECTION, STERILE 1,000 ML with SODIUM ACETATE 150 MEQ IV SCH ×2 (12:00)
[2016-10-16 12:10] LABS: Glucose,Whole Blood 115 mg/dL (75-99)
[2016-10-16] MEDS: WATER FOR INJECTION, STERILE 1,000 ML with SODIUM ACETATE 150 MEQ IV SCH ×4 (14:55→22:43)
[2016-10-16 16:38] LABS: Glucose,Whole Blood 89 mg/dL (75-99)
[2016-10-16 20:53] LABS: Glucose,Whole Blood 85 mg/dL (75-99)
[2016-10-17] MEDS: HYDROmorphone 1 MG/ML 1 ML SYRINGE IVP PRN ×9 (02:54→23:41)
[2016-10-17] MEDS: WATER FOR INJECTION, STERILE 1,000 ML with SODIUM ACETATE 150 MEQ IV SCH ×2 (05:54)
[2016-10-17 05:57] LABS: Glucose,Whole Blood 85 mg/dL (75-99)
[2016-10-17 06:37] LABS: Calcium 6.7 mg/dL (8.4-10.2); Potassium 3.6 mmol/L (3.5-5.1); Total Bilirubin 0.5 mg/dL (0.2-1.3); Total Protein 5.9 g/dL (6.3-8.2)
[2016-10-17 06:49] LABS: Basophils % (A) 1 %; CH 33.1; CHCM 36.3; Eosinophils # (A) 0.1 k/uL (0-0.7); Eosinophils % (A) 2 %; HCT 24.8 % (39.0-53.0); HDW 3.11; HGB 8.8 gm/dL (13.0-17.5); Luc # (Auto) 0.15; Luc % (Auto) 4; Lymphocytes # (A) 1.1 k/uL (1.0-4.8); Lymphocytes % (A) 25 %; MCH 32.8 pg (25.0-35.0); MCHC 35.7 g/dL (31.0-37.0); MCV 91.9 fL (80.0-100.0); Mean Platelet Volume 7.2; Monocytes # (A) 0.3 k/uL (0-1.0); Monocytes % (A) 7 %; Neutrophils # (A) 2.7 k/uL (1.3-7.7); Neutrophils % (A) 62 %; RDW 14.5 % (11.5-15.5); WBC 4.4 k/uL (3.8-10.6); WBC (Perox) 4.59
--- NOTE | 2016-10-17 08:35 | P.PN ---
Subjective Patient is seen in follow-up for acute kidney injury on chronic any disease. Patient has chronic kidney disease stage V. Baseline creatinine in the range of 5-6. He does have history of hepatitis C which has not been treated and that is presumably the cause of his underlying chronic kidney disease. He presented to the hospital with abdominal pain and was noted to have a lipase level of over 13,000. He is currently nothing by mouth. Still has abdominal pain. Does feel hungry. No vomiting or diarrhea. He is making urine and is nonoliguric. His bicarb level was less than 5 on admission and is up to 20 this morning. Denies chest pain or shortness of breath. He has been refusing to start renal replacement therapy. Vital signs are stable. General: The patient appeared well nourished and normally developed. HEENT: Head exam is unremarkable. Neck is without jugular venous distension. LUNGS: Lungs are clear to auscultation and percussion. Breath sounds decreased. HEART: Rate and Rhythm are regular. First and second heart sounds normal. No murmurs, rubs or gallops. ABDOMEN: Abdominal exam reveals normal bowel sounds. Non-tender and non- distended. No evidence of peritonitis. EXTREMITITES: No clubbing, cyanosis, or edema. Objective - Vital Signs Vital signs: Vital Signs Temp 98.2 F 10/17/16 04:00 Pulse 81 10/17/16 04:00 Resp 18 10/17/16 04:00 BP 158/95 10/17/16 04:00 Pulse Ox 98 10/17/16 04:00 Intake & Output 10/16/16 10/17/16 10/17/16 18:59 06:59 18:59 Intake Total 1050 1075 225 Output Total 600 400 100 Balance 450 675 125 Weight 61.9 kg 58 kg Intake: IV 1075 225 Water For Injection, 975 225 Sterile 1,000 ml @ 150 mls/hr IV .Q7H10M BRITTON with Sodium Acetate 150 meq Rx#:[id number] cefTRIAXone 1,000 mg In 100 Sodium Chloride 0.9% 50 ml @ 100 mls/hr IVPB Q24H BRITTON Rx#:[id number] Intake, IV Titration 1050 Amount Dextrose 5% in Water 1, 300 000 ml @ 150 mls/hr IV . Q7H10M BRITTON with Sodium Acetate 150 meq Rx#: [id number] Sodium Acetate 50 meq In 750 Water For Injection, Sterile 250 ml @ 900 mls/ hr IV ONCE ONE Rx#: [id number] Output: Urine 600 400 100 Other: Voiding Method Urinal Urinal # Voids 1 1 - Labs CBC & Chem 7: 10/17/16 05:54 10/17/16 05:54 Labs: Abnormal Lab Results - Last 24 Hours (Table) 10/16/16 10/16/16 10/16/16 Range/Units 08:13 08:13 08:13 RBC 2.71 L (4.30-5.90) m/uL Hgb 9.0 L D (13.0-17.5) gm/dL Hct 24.8 L (39.0-53.0) % Sodium (137-145) mmol/L Chloride (98-107) mmol/L Carbon Dioxide 14 L (22-30) mmol/L BUN 119 H* (9-20) mg/dL Creatinine 12.56 H* (0.66-1.25) mg/dL Glucose (74-99) mg/dL POC Glucose (mg/dL) (75-99) mg/dL Calcium 7.5 L (8.4-10.2) mg/dL TIBC 240 L (261-462) ug/dL Total Protein 6.0 L (6.3-8.2) g/dL Albumin 2.9 L (3.5-5.0) g/dL Lipase (23-300) U/L 10/16/16 10/17/16 10/17/16 Range/Units 12:08 05:54 05:54 RBC 2.70 L (4.30-5.90) m/uL Hgb 8.8 L (13.0-17.5) gm/dL Hct 24.8 L (39.0-53.0) % Sodium 136 L (137-145) mmol/L Chloride 95 L (98-107) mmol/L Carbon Dioxide 20 L (22-30) mmol/L BUN 117 H* (9-20) mg/dL Creatinine 12.69 H* (0.66-1.25) mg/dL Glucose 73 L (74-99) mg/dL POC Glucose (mg/dL) 115 H (75-99) mg/dL Calcium 6.7 L (8.4-10.2) mg/dL TIBC (261-462) ug/dL Total Protein 5.9 L (6.3-8.2) g/dL Albumin 2.8 L (3.5-5.0) g/dL Lipase 3920 H (23-300) U/L Assessment and Plan Plan: Assessment: #1. Nonoliguric acute kidney injury secondary to ischemic ATN secondary to poor oral intake and use of nonsteroidals. Further worsened with the use of cocaine. No improvement in his renal function as creatinine is 12.69 today with a BUN of 117. CK level 85. #2. Chronic kidney disease stage V with baseline creatinine near 6. Patient has been refusing dialysis despite detailed conversations regarding the need to start. 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 His kidneys are atrophied and doing a kidney biopsy at this stage would not be beneficial and will actually be a high risk procedure. #3. Acute pancreatitis. Lipase level down to 3920 today. #4. Hepatitis C. patient denies being treated for this in the past. #5. Anion gap metabolic acidosis secondary to acute kidney injury. Improving. #6. Hyperkalemia secondary to acute kidney injury and metabolic acidosis. Resolved. #7. Anemia of chronic kidney disease. Iron replete. #8. Illicit drug abuse. Plan: Discontinue sodium bicarbonate drip. Start oral sodium bicarbonate 1300 mg twice daily. Avoid nephrotoxic agents and hypotensive episodes. Start Aranesp. I again discussed in detail with him today the need to start renal replacement therapy. Risks and benefits were discussed. He continues to refuse at this time.
[2016-10-17] MEDS: SODIUM BICARBONATE TAB 650 MG TAB PO SCH ×2 (08:53→21:11)
[2016-10-17] MEDS ORDERED: DARBEPOETIN ALFA 40 MCG/0.4 ML SYRINGE SQ SCH (09:00)
--- NOTE | 2016-10-17 09:54 | HP ---
DATE OF ADMISSION: SUBJECTIVE: A 66-year-old male who came in with abdominal pain for the past 3 days. He has had no medications at home. He apparently was in acute renal failure when he came in the hospital and he had diffuse pain across his abdomen, more in the epigastric region. He denies fever, chills, or alcohol abuse. No nausea, vomiting. He does do cocaine. HOME MEDS: Negative. ALLERGIES: ASPIRIN. REVIEW OF SYSTEMS: A 14-point review of systems is negative except per HPI. PAST MEDICAL HISTORY: Dyslipidemia, renal disease, spot on the liver, orthopedic surgery, NICO, bipolar depression, current every day smoker, and cocaine use, started smoking at age 7 or 8. PAST MEDICAL HISTORY: Father alcoholic. Brother, diabetes mellitus. PHYSICAL EXAM: VITAL SIGNS: Stable, afebrile. CARDIOVASCULAR: S1, S2. LUNGS: Transmitted upper airway sounds. GI: Soft. HEMATOLOGIC: Negative Homans. PSYCH: Fair mood and affect. NEUROLOGIC: Alert and oriented x3. GENERAL: She is thin and cachectic. MUSCULOSKELETAL: Range of motion, full. LYMPH NODES: No lymphadenopathy. Temperature 98.5, pulse 105, respiratory rate 20, blood pressure 129/69. EKG shows sinus rhythm. Hemoglobin is 10.8, sodium 134, potassium 6.1, BUN is 111, creatinine 13.6. Urine is positive for cocaine and opiates. ASSESSMENT: 1. Acute on chronic renal failure, urinary tract infection. 2. Severe cocaine abuse. 3. Pancreatitis. 4. Renal failure unclear etiology. Await for kidney physician to see him, possibly surgeon for pancreatitis. Clear liquids will be given.
[2016-10-17 12:13] LABS: Glucose,Whole Blood 78 mg/dL (75-99)
--- NOTE | 2016-10-17 13:11 | P.GSCN ---
History of Present Illness Consult date: 10/16/16 Reason for Consult: Pancreatitis Requesting physician: Justin Romano History of present illness: Patient is a 66-year-old male, referred from Dr. Justin Romano, with medical history significant for chronic renal failure and previous episode of pancreatitis 2 years ago. Patient admitted through the emergency department with complaints of epigastric abdominal pain 3 days. No history of nausea, vomiting, chills, fevers, diarrhea or constipation. Patient patient admits to daily EtOH use and reports smoking crack cocaine approximately 2 weeks ago. Labs on admission with evidence of acute on chronic renal failure [place] [address]. Patient was also found to have evidence of urinary tract infection. CT of the abdomen and pelvis with evidence of edematous and inflamed pancreas with coarse calcifications in the pancreatic head likely representing acute on chronic pancreatitis. Gallbladder distention and mild enlargement of the common bile duct measuring [address] findings of acute cholecystitis. Bilateral fat-containing inguinal hernias with partial extension of the anterior urinary bladder into the right inguinal hernia. Surgical service is asked to evaluate patient for pancreatitis. Upon examination, patient complains of epigastric pain and right upper quadrant pain radiating to his back currently rated 7 out of 10. Patient denies nausea, vomiting, diarrhea or constipation. Patient has been evaluated by nephrology service and is currently refusing hemodialysis. Patient reports hunger. Patient is urinating without difficulty. Patient denies melena or hematochezia. T-max the last 24 hours 99.8. No evidence of leukocytosis. Lipase decreased to 3920. Past Medical History Past Medical History: Hyperlipidemia, Renal Disease Additional Past Medical History / Comment(s): "spot on liver" History of Any Multi-Drug Resistant Organisms: None Reported Past Surgical History: Orthopedic Surgery Additional Past Surgical History / Comment(s): 07/01/16 NICO. Past Anesthesia/Blood Transfusion Reactions: No Reported Reaction Past Psychological History: Bipolar, Depression Additional Psychological History / Comment(s): Pt resides with one of his brothers. He does not drive. Smoking Status: Current every day smoker Past Alcohol Use History: Occasional Additional Past Alcohol Use History / Comment(s): Pt started smoking around age 7 or 8 yrs. He drinks on a daily basis-brother states he is an alcoholic. Past Drug Use History: None Reported Additional Drug Use History / Comment(s): Pt states he uses crack cocaine approx 2 weeks ago - Past Family History Father Additional Family Medical History / Comment(s): Father was an alcoholic and of this at the age of 44yrs. Mother Family Medical History: No Reported History Additional Family Medical History / Comment(s): Mother is 88yrs old and healthy. Brother(s) Family Medical History: Diabetes Mellitus Medications and Allergies Home Medications Medication Instructions Recorded Confirmed Type No Known Home Medications [No 10/15/16 10/15/16 History Known Home Medications] Allergies Allergy/AdvReac Type Severity Reaction Status Date / Time aspirin AdvReac Nausea & Verified 10/15/16 21:59 Vomiting Surgical - Exam Vital Signs Temp Pulse Resp BP Pulse Ox 98.5 F 105 H 20 129/69 94 L 10/15/16 21:12 10/15/16 21:12 10/15/16 21:12 10/15/16 21:12 10/15/16 21:12 GENERAL: Pt awake and alert, in no acute distress. HEAD: Atraumatic, normocephalic. EYES: Pupils equal, round, sclera anicteric, conjunctiva are normal. ENT: Moist mucous membranes. LUNGS: Breath sounds diminished to auscultation bilaterally. No wheezes, rales , or rhonchi. HEART: Heart S1, S2, no S3 or S4. Regular rate and rhythm. No murmurs, rubs or gallops. ABDOMEN: Soft, mild epigastric and right upper quadrant tenderness, nondistended , normoactive bowel sounds. No guarding, no rebound. No masses or organomegaly appreciated. NEUROLOGICAL: Pt oriented x 3. Results - Labs 10/17/16 05:54 10/17/16 05:54 Abnormal Lab Results - Last 24 Hours (Table) 10/17/16 10/17/16 10/17/16 Range/Units 05:43 05:54 05:54 RBC 2.70 L (4.30-5.90) m/uL Hgb 8.8 L (13.0-17.5) gm/dL Hct 24.8 L (39.0-53.0) % Sodium 136 L (137-145) mmol/L Chloride 95 L (98-107) mmol/L Carbon Dioxide 20 L (22-30) mmol/L BUN 117 H* (9-20) mg/dL Creatinine 12.69 H* (0.66-1.25) mg/dL Glucose 73 L (74-99) mg/dL Calcium 6.7 L (8.4-10.2) mg/dL Phosphorus 8.4 H* (2.5-4.5) mg/dL Total Protein 5.9 L (6.3-8.2) g/dL Albumin 2.8 L (3.5-5.0) g/dL Lipase 3920 H (23-300) U/L Diabetes panel 10/17/16 Range/Units 05:54 Sodium 136 L (137-145) mmol/L Potassium 3.6 (3.5-5.1) mmol/L Chloride 95 L (98-107) mmol/L Carbon Dioxide 20 L (22-30) mmol/L BUN 117 H* (9-20) mg/dL Creatinine 12.69 H* (0.66-1.25) mg/dL Glucose 73 L (74-99) mg/dL Calcium 6.7 L (8.4-10.2) mg/dL AST 41 (17-59) U/L ALT 38 (21-72) U/L Alkaline Phosphatase 85 (38-126) U/L Total Protein 5.9 L (6.3-8.2) g/dL Albumin 2.8 L (3.5-5.0) g/dL Calcium panel 10/17/16 10/17/16 Range/Units 05:43 05:54 Calcium 6.7 L (8.4-10.2) mg/dL Phosphorus 8.4 H* (2.5-4.5) mg/dL Albumin 2.8 L (3.5-5.0) g/dL Pituitary panel 10/17/16 Range/Units 05:54 Sodium 136 L (137-145) mmol/L Potassium 3.6 (3.5-5.1) mmol/L Chloride 95 L (98-107) mmol/L Carbon Dioxide 20 L (22-30) mmol/L BUN 117 H* (9-20) mg/dL Creatinine 12.69 H* (0.66-1.25) mg/dL Glucose 73 L (74-99) mg/dL Calcium 6.7 L (8.4-10.2) mg/dL Adrenal panel 04/28/17 Range/Units 05:54 Sodium 136 L (137-145) mmol/L Potassium 3.6 (3.5-5.1) mmol/L Chloride 95 L (98-107) mmol/L Carbon Dioxide 20 L (22-30) mmol/L BUN 117 H* (9-20) mg/dL Creatinine 12.69 H* (0.66-1.25) mg/dL Glucose 73 L (74-99) mg/dL Calcium 6.7 L (8.4-10.2) mg/dL Total Bilirubin 0.5 (0.2-1.3) mg/dL AST 41 (17-59) U/L ALT 38 (21-72) U/L Alkaline Phosphatase 85 (38-126) U/L Total Protein 5.9 L (6.3-8.2) g/dL Albumin 2.8 L (3.5-5.0) g/dL - Imaging CT scan - abdomen: report reviewed CT scan - pelvis: report reviewed Assessment and Plan Plan: Impression: 1. Acute on chronic pancreatitis. Lipase 14,743 on admission, 3920 today. 2. Acute on chronic renal failure. 3. Urinary tract infection. 4. Gallbladder distention with common bile duct mildly enlarged measuring 9 mm without evidence of acute cystitis. 5. Bilateral fat-containing inguinal hernias with partial extension of the anterior urinary bladder into the right inguinal hernia. 6. EtOH abuse. 7. Cocaine abuse. Plan: 1. Keep patient nothing by mouth. Continue supportive treatment and pain management. Continue to follow with GI service, nephrology service, and medical service. Repeat lipase in a.m. The above impression and plan have been discussed and directed by Dr. Gandhi. Azucena GILES acting as scribe for Dr. Gandhi.
[2016-10-17 16:41] LABS: Glucose,Whole Blood 145 mg/dL (75-99)
--- NOTE | 2016-10-18 01:47 | P.CONS ---
History of Present Illness - Reason for Consult Consult date: 10/17/16 Pancreatitis - History of Present Illness The patient is a 66-year old male who presented with complaints of epigastric and upper abdominal pains of 3 days duration. No nausea or vomiting. Was found to have calcifications and edema in pancreatic head and elevated lipase. No cholelithiasis. Normal liver enzymes. Had similar presentation around 2 years ago. Has history of HCV infection not previously treated and chronic kidney disease with worsening creatinine and acidosis followed by nephrology. Apparently was taking motrin for pain. No alcohol use. Uses cocaine and heroin. On no other medications at home. Review of Systems Constitutional: Denies fever, chills, sweats, weight gain, or loss. HEENT: Negative for migraines, blurred vision or loss, earaches, drainage, tinnitus, oral mucosal lesions, dysphagia, or odynophagia. Cardiac: Negative for chest pain, arrhythmias, or palpitation. Respiratory: Negative for shortness of breath, hemoptysis, cough, or sputum production. Gastrointestinal: See HPI for pertinent findings. Genitourinary: Negative for hematuria, urgency, frequency, polyuria, dysuria, or penile discharge. CKD, mild kidney atrophy on CT Musculoskeletal: Negative for muscle aches, swelling, arthritis, and arthralgias. Neurologic: Negative for stroke or TIA. Endocrine: No history of DM or thyroid disease Skin: Negative for rash or itching. Psychiatric: Negative history for depression and anxiety Past Medical History Past Medical History: Hyperlipidemia, Renal Disease Additional Past Medical History / Comment(s): "spot on liver" History of Any Multi-Drug Resistant Organisms: None Reported Past Surgical History: Orthopedic Surgery Additional Past Surgical History / Comment(s): 07/01/16 NICO. Past Anesthesia/Blood Transfusion Reactions: No Reported Reaction Past Psychological History: Bipolar, Depression Additional Psychological History / Comment(s): Pt resides with one of his brothers. He does not drive. Smoking Status: Current every day smoker Past Alcohol Use History: Occasional Additional Past Alcohol Use History / Comment(s): Pt started smoking around age 7 or 8 yrs. He drinks on a daily basis-brother states he is an alcoholic. Past Drug Use History: None Reported Additional Drug Use History / Comment(s): Pt states he uses crack cocaine approx 2 weeks ago - Past Family History Father Additional Family Medical History / Comment(s): Father was an alcoholic and of this at the age of 44yrs. Mother Family Medical History: No Reported History Additional Family Medical History / Comment(s): Mother is 88yrs old and healthy. Brother(s) Family Medical History: Diabetes Mellitus Medications and Allergies Home Medications Medication Instructions Recorded Confirmed Type No Known Home Medications [No 10/15/16 10/15/16 History Known Home Medications] Allergies Allergy/AdvReac Type Severity Reaction Status Date / Time aspirin AdvReac Nausea & Verified 10/15/16 21:59 Vomiting Physical Exam Vitals: Vital Signs Temp Pulse Resp BP Pulse Ox 10/17/16 20:00 98.8 F 76 16 146/82 97 10/17/16 16:00 97.6 F 88 18 154/69 98 10/17/16 12:00 97.6 F 80 18 157/100 98 10/17/16 08:00 97.2 F L 82 18 161/95 94 L 10/17/16 04:00 98.2 F 81 18 158/95 98 10/17/16 00:00 99.8 F H 84 18 144/90 99 Intake and Output 10/17/16 10/17/16 10/17/16 06:59 14:59 22:59 Intake Total 1075 225 Output Total 300 300 450 Balance 775 -75 -450 Intake: IV 1075 225 Water For Injection, 975 225 Sterile 1,000 ml @ 150 mls/hr IV .Q7H10M BRITTON with Sodium Acetate 150 meq Rx#:[id number] cefTRIAXone 1,000 mg In 100 Sodium Chloride 0.9% 50 ml @ 100 mls/hr IVPB Q24H BRITTON Rx#:[id number] Output: Urine 300 300 450 Other: Voiding Method Urinal Urinal Urinal # Voids 1 1 1 Weight 58 kg General appearance: The patient is alert, oriented, in no acute distress. HET: Head is normocephalic and atraumatic. Pupils are equal and reactive. Oropharynx is clear without lesions. Neck: Supple without lymphadenopathy. Trachea midline. Heart: Regular, no abnormal sounds, murmurs, gallops or friction rubs Lungs: No diminished in bases bilaterally.. Abdomen: Soft, nontender, nondistended with normal bowel sounds. No peritoneal signs. No palpable organomegaly or masses. Extremities: Normal skin color and turgor. No cyanosis, rash, ulceration, clubbing, or edema. Radial and pedal pulses are 2/4 bilaterally. Neurological: Alert and oriented X 3. Cranial nerves intact. No focal deficits. Strength and sensation are grossly intact. Results CBC & Chem 7: 10/17/16 05:54 10/17/16 05:54 Labs: Abnormal Lab Results - Last 24 Hours (Table) 10/17/16 10/17/16 10/17/16 Range/Units 05:43 05:54 05:54 RBC 2.70 L (4.30-5.90) m/uL Hgb 8.8 L (13.0-17.5) gm/dL Hct 24.8 L (39.0-53.0) % Sodium 136 L (137-145) mmol/L Chloride 95 L (98-107) mmol/L Carbon Dioxide 20 L (22-30) mmol/L BUN 117 H* (9-20) mg/dL Creatinine 12.69 H* (0.66-1.25) mg/dL Glucose 73 L (74-99) mg/dL POC Glucose (mg/dL) (75-99) mg/dL Calcium 6.7 L (8.4-10.2) mg/dL Phosphorus 8.4 H* (2.5-4.5) mg/dL Total Protein 5.9 L (6.3-8.2) g/dL Albumin 2.8 L (3.5-5.0) g/dL Lipase 3920 H (23-300) U/L 10/17/16 Range/Units 16:26 RBC (4.30-5.90) m/uL Hgb (13.0-17.5) gm/dL Hct (39.0-53.0) % Sodium (137-145) mmol/L Chloride (98-107) mmol/L Carbon Dioxide (22-30) mmol/L BUN (9-20) mg/dL Creatinine (0.66-1.25) mg/dL Glucose (74-99) mg/dL POC Glucose (mg/dL) 145 H (75-99) mg/dL Calcium (8.4-10.2) mg/dL Phosphorus (2.5-4.5) mg/dL Total Protein (6.3-8.2) g/dL Albumin (3.5-5.0) g/dL Lipase (23-300) U/L Assessment and Plan Plan: 66-year old male with picture of chronic relapsing pancreatitis. Likely idiopathic, although alcohol related etiology could be a possibility despite absence of use at this time. Agree with your current management and review his course with you, nephrology and surgery.
[2016-10-18] MEDS: HYDROmorphone 1 MG/ML 1 ML SYRINGE IVP PRN ×9 (03:33→23:49)
[2016-10-18 06:48] LABS: CHCM 35.9; HCT 25.8 % (39.0-53.0); HDW 3.11; HGB 9.1 gm/dL (13.0-17.5); MCH 32.8 pg (25.0-35.0); MCHC 35.4 g/dL (31.0-37.0); MCV 92.6 fL (80.0-100.0); Mean Platelet Volume 6.7; RBC 2.79 m/uL (4.30-5.90); RDW 14.7 % (11.5-15.5); WBC 3.3 k/uL (3.8-10.6)
[2016-10-18 07:02] LABS: Calcium 6.7 mg/dL (8.4-10.2); Potassium 3.7 mmol/L (3.5-5.1)
--- NOTE | 2016-10-18 08:25 | P.PN ---
Subjective This is a 66-year-old male with hepatitis C, chronic kidney disease stage V came in with abdominal pain and severe pancreatitis with lipase level 13,000, down down to 3920. Continues to have fair amount of pain and is on Dilaudid. He states he is hungry wants to eat. He says he was somewhat dizzy when he stood up. He is making urine approximately at thousand cc. Denies any fever chills shortness of breath cough nausea vomiting diarrhea. He is known with chronic kidney disease stage V with hepatitis C possibly causing the chronic kidney disease. He has refused dialysis so far although his creatinine is 12 and BuN is in the 110 range. The reason for this refusal is because he does not feel very symptomatic. Objective - Vital Signs Vital signs: Vital Signs Temp 98.5 F 10/18/16 04:00 Pulse 70 10/18/16 04:00 Resp 18 10/18/16 04:00 BP 156/95 10/18/16 04:00 Pulse Ox 97 10/18/16 04:00 Intake & Output 10/17/16 10/18/16 10/18/16 18:59 06:59 18:59 Intake Total 225 50 Output Total 500 250 200 Balance -275 -200 -200 Weight 57.3 kg Intake: IV 225 50 Water For Injection, 225 Sterile 1,000 ml @ 150 mls/hr IV .Q7H10M BRITTON with Sodium Acetate 150 meq Rx#:[id number] cefTRIAXone 1,000 mg In 50 Sodium Chloride 0.9% 50 ml @ 100 mls/hr IVPB Q24H BRITTON Rx#:[id number] Output: Urine 500 250 200 Other: Voiding Method Urinal Urinal # Voids 1 1 On examination is awake alert oriented comfortable. He just walked to the bathroom and came back without any instability. HEENT exam no JVP neck is supple no facial asymmetry. Lungs are clear to auscultation percussion good air entry bilaterally. Heart sounds are unremarkable no murmur rub gallop regular rhythm. Abdomen soft nontender nondistended no ascites no organomegaly. Extremity exam was no edema Warm to touch. Neuro logically awake alert oriented no asterixis. - Labs CBC & Chem 7: 10/18/16 06:24 10/18/16 06:24 Labs: Abnormal Lab Results - Last 24 Hours (Table) 04/10/17/16 10/18/16 Range/Units 05:43 16:26 06:24 WBC (3.8-10.6) k/uL RBC (4.30-5.90) m/uL Hgb (13.0-17.5) gm/dL Hct (39.0-53.0) % Sodium 135 L (137-145) mmol/L Chloride 93 L (98-107) mmol/L BUN 118 H* (9-20) mg/dL Creatinine 12.87 H* (0.66-1.25) mg/dL Glucose 105 H (74-99) mg/dL POC Glucose (mg/dL) 145 H (75-99) mg/dL Calcium 6.7 L (8.4-10.2) mg/dL Phosphorus 8.4 H* (2.5-4.5) mg/dL 10/18/16 Range/Units 06:24 WBC 3.3 L (3.8-10.6) k/uL RBC 2.79 L (4.30-5.90) m/uL Hgb 9.1 L (13.0-17.5) gm/dL Hct 25.8 L (39.0-53.0) % Sodium (137-145) mmol/L Chloride (98-107) mmol/L BUN (9-20) mg/dL Creatinine (0.66-1.25) mg/dL Glucose (74-99) mg/dL POC Glucose (mg/dL) (75-99) mg/dL Calcium (8.4-10.2) mg/dL Phosphorus (2.5-4.5) mg/dL Assessment and Plan Plan: Impression. 1. Acute kidney injury secondary to severe pancreatitis and cocaine with basic constriction. Urine output is 750 mL for the last 24 hours, may not be complete collection, creatinine is 12.87 and a BUN 118, 2. Mild degree of anion gap acidosis with bicarb of 22 and an anion gap was 20 , indicating an element of metabolic alkalosis as well. The etiology of acidosis acute kidney injury and chronic kidney disease, the etiology of metabolic alkalosis is unclear without the benefit of blood gases. On oral bicarb 3. History of cocaine use 4. Severe pancreatitis improving but still on pain medications 5. Refusing dialysis. 6. Anemia on Aranesp Recommendation. 1. Maintain sodium bicarb for right now. 2. Maintain Aranesp. 3. Watch acid base and electrolytes. 4. Extensive discussion regarding pros and cons of waiting for complication of uremia and risk of explain. Patient still insists on not getting dialysis until he is symptomatic. He is aware of the risks of that strategy. Also he is refusing any planning for dialysis access surgery. 5. Maintain IV normal saline at 75 mL an hour
[2016-10-18] MEDS: SODIUM CHLORIDE 0.9% 1,000 ML IV SCH (08:30)
[2016-10-18] MEDS: SODIUM BICARBONATE TAB 650 MG TAB PO SCH ×2 (08:43→20:57)
--- NOTE | 2016-10-18 09:36 | PN ---
DATE OF SERVICE: 10/17/2016 SUBJECTIVE: This 66-year-old white male who was admitted with significant pancreatitis and renal insufficiency. His creatinine is 12.87. His sodium was 135, calcium is low at 6.7, lipase 3290. No dialysis is being planned by ( ) at this time. As far as I can tell, he is making good urine output. ASSESSMENT: 1. Acute on chronic pancreatitis. 2. Acute on chronic renal failure. 3. Urinary tract infection. 4. Gallbladder distention. 5. Bowel duct enlarged. 6. Inguinal hernias. 7. Alcohol abuse. 8. Cocaine abuse. 9. Possible cholecystectomy but need surgical and GI consults are pending.
--- NOTE | 2016-10-18 10:26 | P.PN ---
Subjective Principal diagnosis: Pancreatitis The patient states his pain is improved. He is requesting more to eat. Objective - Vital Signs Vital signs: Vital Signs Temp 96.8 F L 10/18/16 08:00 Pulse 80 10/18/16 08:00 Resp 18 10/18/16 08:00 BP 164/71 10/18/16 08:00 Pulse Ox 97 10/18/16 08:00 Intake & Output 10/17/16 10/18/16 10/18/16 18:59 06:59 18:59 Intake Total 225 50 125 Output Total 500 250 200 Balance -275 -200 -75 Weight 57.3 kg Intake: IV 225 50 Water For Injection, 225 Sterile 1,000 ml @ 150 mls/hr IV .Q7H10M BRITTON with Sodium Acetate 150 meq Rx#:[id number] cefTRIAXone 1,000 mg In 50 Sodium Chloride 0.9% 50 ml @ 100 mls/hr IVPB Q24H BRITTON Rx#:[id number] Intake, IV Titration 75 Amount Sodium Chloride 0.9% 1, 75 000 ml @ 75 mls/hr IV . [id number] BRITTON Rx#:[id number] Oral 50 Output: Urine 500 250 200 Other: Voiding Method Urinal Urinal Urinal # Voids 1 1 - Constitutional General appearance: Present: average body habitus - Gastrointestinal Gastrointestinal Comment(s): Abdomen soft. There is minimal epigastric tenderness. There is no rebound or guarding. - Labs CBC & Chem 7: 10/18/16 06:24 10/18/16 06:24 Labs: Abnormal Lab Results - Last 24 Hours (Table) 10/17/16 10/18/16 10/18/16 Range/Units 16:26 06:24 06:24 WBC 3.3 L (3.8-10.6) k/uL RBC 2.79 L (4.30-5.90) m/uL Hgb 9.1 L (13.0-17.5) gm/dL Hct 25.8 L (39.0-53.0) % Sodium 135 L (137-145) mmol/L Chloride 93 L (98-107) mmol/L BUN 118 H* (9-20) mg/dL Creatinine 12.87 H* (0.66-1.25) mg/dL Glucose 105 H (74-99) mg/dL POC Glucose (mg/dL) 145 H (75-99) mg/dL Calcium 6.7 L (8.4-10.2) mg/dL Assessment and Plan Plan: Acute exacerbation of chronic pancreatitis. Patient will have his diet increased..
[2016-10-18] MEDS: amLODIPine 5 MG TAB PO SCH (15:17)
--- NOTE | 2016-10-18 16:15 | PN ---
SUBJECTIVE: A 66-year-old -[place] male. He wants his diet advanced. He is being treated for end-stage renal failure, acute pancreatitis. His blood pressure is 160s or 70s, oxygen saturation 97, respiratory rate 16 to 18. Pulse is 70s to 80s. Temperature 96.8. He is a black male, thin, cachectic. No acute distress. CARDIOVASCULAR: S1, S2. LUNGS: Clear. GI: Soft. Mild epigastric tenderness. HEMATOLOGIC: Negative Joaquin's. PSYCHIATRIC: Fair mood and affect. Sodium 135. BUN is 118, creatinine 12.87. ASSESSMENT: 1. Acute exacerbation of chronic pancreatitis. 2. End-stage renal disease. 3. Hypertension acceleration. May have some hypertension medications at this time. Sodium bicarbonate has been added. Will monitor his electrolytes, advance his diet and monitor his vital signs.
[2016-10-19] MEDS: HYDROmorphone 1 MG/ML 1 ML SYRINGE IVP PRN ×10 (03:16→22:13)
[2016-10-19] MEDS: SODIUM CHLORIDE 0.9% 1,000 ML IV SCH ×2 (05:49→12:36)
[2016-10-19 07:02] LABS: Calcium 6.9 mg/dL (8.4-10.2); Potassium 3.9 mmol/L (3.5-5.1); Total Bilirubin 0.4 mg/dL (0.2-1.3); Total Protein 5.9 g/dL (6.3-8.2)
[2016-10-19 07:03] LABS: Aty Lym Flag Slight; CH 31.9; CHCM 33.6; HCT 24.6 % (39.0-53.0); HDW 2.99; HGB 7.9 gm/dL (13.0-17.5); MCH 30.7 pg (25.0-35.0); MCHC 32.2 g/dL (31.0-37.0); MCV 95.6 fL (80.0-100.0); Mean Platelet Volume 6.7; RBC 2.57 m/uL (4.30-5.90); RDW 14.5 % (11.5-15.5); WBC 4.5 k/uL (3.8-10.6); WBC (Perox) 4.54
[2016-10-19 07:27] LABS: Add Differential Manual Differential
[2016-10-19 07:33] LABS: Manual Review Performed; Nucleated Red Blood Cells 0 /100 WBC (0-0); Total Cells Counted 200
[2016-10-19] MEDS: SODIUM BICARBONATE TAB 650 MG TAB PO SCH ×2 (07:59→20:13)
[2016-10-19] MEDS: amLODIPine 5 MG TAB PO SCH (07:59)
--- NOTE | 2016-10-19 10:47 | P.PN ---
Subjective This is a 66-year-old male with hepatitis C, chronic kidney disease stage V came in with abdominal pain and severe pancreatitis with lipase level 13,000, down down to 3920 yesterday but is slightly up to 4200 this morning. Continues to have fair amount of pain and is on Dilaudid. Yesterday he complained of postural dizziness but there was no significant orthostatic blood pressure changes. His urine output is 750 mL for the last 24 hours to days in a row. Today he is complaining of fresh bleeding per rectum. He had this before. May be 2 or 3 years ago. No history of vomiting blood. states he is hungry wants to eat. He Denies any fever chills shortness of breath cough nausea vomiting diarrhea. He is known with chronic kidney disease stage V with hepatitis C possibly causing the chronic kidney disease. He has refused dialysis so far although his creatinine is 12 and BuN is in the 110 range. The reason for this refusal is because he does not feel very symptomatic.this was discussed again today as well as yesterday. Objective - Vital Signs Vital signs: Vital Signs Temp 97.9 F 10/19/16 08:00 Pulse 70 10/19/16 08:00 Resp 16 10/19/16 08:00 BP 184/98 10/19/16 08:00 Pulse Ox 98 10/19/16 08:00 Intake & Output 10/18/16 10/19/16 10/19/16 18:59 06:59 18:59 Intake Total 1780 1355 430 Output Total 350 400 Balance 1430 955 430 Weight 58.7 kg Intake: IV 875 150 Sodium Chloride 0.9% 1, 825 150 000 ml @ 75 mls/hr IV . [id number] [facility] Rx#:[id number] cefTRIAXone 1,000 mg In 50 Sodium Chloride 0.9% 50 ml @ 100 mls/hr IVPB Q24H [facility] Rx#:[id number] Intake, IV Titration 1050 Amount Sodium Chloride 0.9% 1, 1050 000 ml @ 75 mls/hr IV . [id number] [facility] Rx#:[id number] Oral 730 480 280 Output: Urine 350 400 Other: Voiding Method Urinal Urinal Urinal # Voids 1 1 # Bowel Movements 0 On examination he seems to be in some pain. The pain is in the lower abdomen and right flank not in the lumbar area HEENT exam no JVP neck is supple no facial asymmetry Lungs are clear to auscultation percussion good air entry bilaterally Heart sounds are unremarkable for any murmur rub gallop Abdomen is soft nondistended no ascites no masses. Heart sounds are diminished. Extremity exam was no edema Neurologically awake alert oriented no asterixis. - Labs CBC & Chem 7: 10/19/16 06:32 10/19/16 06:32 Labs: Abnormal Lab Results - Last 24 Hours (Table) 10/19/16 10/19/16 Range/Units 06:32 06:32 RBC 2.57 L (4.30-5.90) m/uL Hgb 7.9 L (13.0-17.5) gm/dL Hct 24.6 L (39.0-53.0) % Carbon Dioxide 20 L (22-30) mmol/L BUN 107 H* (9-20) mg/dL Creatinine 12.18 H* (0.66-1.25) mg/dL Glucose 102 H (74-99) mg/dL Calcium 6.9 L (8.4-10.2) mg/dL Alkaline Phosphatase 149 H (38-126) U/L Total Protein 5.9 L (6.3-8.2) g/dL Albumin 2.9 L (3.5-5.0) g/dL Lipase 4290 H (23-300) U/L Assessment and Plan Plan: Impression. 1. Acute kidney injury secondary to severe pancreatitis and cocaine with vsao constriction. Urine output is 750 mL for the last 24 hours, may not be complete collection, creatinine is 12. 18, BUN is 107 unchanged from yesterday when his creatinine was 12 point 87 and a BUN 118, electrolytes are normal except for mild acidosis bicarb of 20, which is down from 20 to yesterday and anion gap of 17 improved from 20 2. Mild degree of anion gap acidosis with bicarb down from 22 to 20, anion gap is down from 20-17. The delta bicarb is 4 and the delta gap is 5 therefore the metabolic alkalosis seen yesterday is resolved. 3. History of cocaine use 4. Severe pancreatitis improving but still on pain medications, and in pain and lipase still high 4290 5. Refusing dialysis. 6. Anemia on Aranesp 7. History of fresh bleeding per rectum this morning. Hemoglobin is down from 9.1-7.9. Recommendation. 1. Maintain sodium bicarb for right now. 2. Maintain Aranesp. 3. Watch acid base and electrolytes. 4. I had an extensive Extensive discussion yesterday regarding pros and cons of waiting for complication of uremia and risk of explain. Patient still insists on not getting dialysis until he is symptomatic. He is aware of the risks of that strategy. Also he is refusing any planning for dialysis access surgery. 5. Maintain IV normal saline at 75 mL an hour 6. Check hemoglobin and transfuse if hemoglobin below 7 and continues to bleed
--- NOTE | 2016-10-19 13:31 | P.PN ---
Subjective Principal diagnosis: Pancreatitis The patient was started on clear liquids yesterday. He states his pain is improved. He is resting comfortably in his bed. Objective - Vital Signs Vital signs: Vital Signs Temp 96.9 F L 10/19/16 12:00 Pulse 84 10/19/16 12:00 Resp 16 10/19/16 12:00 BP 164/91 10/19/16 12:00 Pulse Ox 97 10/19/16 12:00 Intake & Output 10/18/16 10/19/16 10/19/16 18:59 06:59 18:59 Intake Total 1780 1355 1458 Output Total 350 400 Balance 9264 355 8334 Weight 58.7 kg Intake: IV 875 600 Sodium Chloride 0.9% 1, 825 600 000 ml @ 75 mls/hr IV . [id number] [facility] Rx#:[id number] cefTRIAXone 1,000 mg In 50 Sodium Chloride 0.9% 50 ml @ 100 mls/hr IVPB Q24H [facility] Rx#:[id number] Intake, IV Titration 1050 Amount Sodium Chloride 0.9% 1, 1050 000 ml @ 75 mls/hr IV . [id number] [facility] Rx#:[id number] Oral 730 480 858 Output: Urine 350 400 Other: Voiding Method Urinal Urinal Urinal # Voids 1 1 # Bowel Movements 0 - Constitutional General appearance: Present: cooperative - Cardiovascular Rhythm: regular - Gastrointestinal Gastrointestinal Comment(s): Abdomen is soft. - Labs CBC & Chem 7: 10/19/16 06:32 10/19/16 06:32 Labs: Abnormal Lab Results - Last 24 Hours (Table) 10/19/16 10/19/16 Range/Units 06:32 06:32 RBC 2.57 L (4.30-5.90) m/uL Hgb 7.9 L (13.0-17.5) gm/dL Hct 24.6 L (39.0-53.0) % Carbon Dioxide 20 L (22-30) mmol/L BUN 107 H* (9-20) mg/dL Creatinine 12.18 H* (0.66-1.25) mg/dL Glucose 102 H (74-99) mg/dL Calcium 6.9 L (8.4-10.2) mg/dL Alkaline Phosphatase 149 H (38-126) U/L Total Protein 5.9 L (6.3-8.2) g/dL Albumin 2.9 L (3.5-5.0) g/dL Lipase 4290 H (23-300) U/L Assessment and Plan Plan: Patient's pain or tenderness improving. We will place him on a full liquid diet
--- NOTE | 2016-10-19 13:59 | PN ---
SUBJECTIVE: 66-year-old with hepatitis C, chronic renal injury stage V, severe pancreatitis at 4200, he is in a fair amount of abdominal pain and had some dizziness and orthostatic changes. He is complaining of fresh bleeding per rectum, 2 to 3 years. Says he is hungry and wants to eta. He has chronic renal disease, stage V with hepatitis C with creatinine currently in the 12 range. He refused dialysis so far because he does not feel very symptomatic. VITAL SIGNS: Blood pressure 180s over 90s, respiratory rate 16 to 18, pulse 65 to 70, temp 97.9, O2 sat 98. Hemoglobin 7.9, BUN 107, creatinine 12.18, lipase 4290. ASSESSMENT: 1. Acute renal injury secondary to severe pancreatitis with vasoconstriction, cocaine, moderate degree of anion gap acidosis. 2. History of taking cocaine. 3. Severe pancreatitis. 4. Anemia. 5. Gastrointestinal bleed. PLAN: Continue sodium bicarb, Aranesp, watch acid base and electrolytes. The patient still refusing dialysis despite being severe uremic nature. Continue with IV fluids. Monitor for hemoglobin. Will transfuse if it drops below 7. Prognosis extremely guarded.
[2016-10-19] MEDS: ZOLPIDEM 5 MG TAB PO PRN (22:12)
[2016-10-20] MEDS: HYDROmorphone 1 MG/ML 1 ML SYRINGE IVP PRN ×11 (00:46→21:59)
[2016-10-20] MEDS: SODIUM CHLORIDE 0.9% 1,000 ML IV SCH ×2 (00:48→17:41)
[2016-10-20 07:57] LABS: Calcium 7.6 mg/dL (8.4-10.2); Total Bilirubin 0.4 mg/dL (0.2-1.3); Total Protein 6.1 g/dL (6.3-8.2)
[2016-10-20 08:20] LABS: Basophils # (A) 0.1 k/uL (0-0.2); Basophils % (A) 1 %; CH 32.5; CHCM 35.2; Eosinophils # (A) 0.2 k/uL (0-0.7); Eosinophils % (A) 3 %; HCT 22.5 % (39.0-53.0); HDW 3.22; HGB 7.8 gm/dL (13.0-17.5); Luc # (Auto) 0.23; Luc % (Auto) 4; Lymphocytes # (A) 1.3 k/uL (1.0-4.8); Lymphocytes % (A) 22 %; MCH 32.1 pg (25.0-35.0); MCHC 34.4 g/dL (31.0-37.0); MCV 93.1 fL (80.0-100.0); Mean Platelet Volume 7.1; Monocytes # (A) 0.6 k/uL (0-1.0); Monocytes % (A) 10 %; Neutrophils # (A) 3.7 k/uL (1.3-7.7); Neutrophils % (A) 61 %; RBC 2.42 m/uL (4.30-5.90); RDW 14.7 % (11.5-15.5); WBC 6.1 k/uL (3.8-10.6); WBC (Perox) 5.69
[2016-10-20] MEDS: SODIUM BICARBONATE TAB 650 MG TAB PO SCH ×2 (08:55→19:35)
[2016-10-20] MEDS: amLODIPine 5 MG TAB PO SCH (08:55)
--- NOTE | 2016-10-20 10:53 | PN ---
Patient is seen for followup for CKD stage V. He had been refusing renal replacement therapy all this time and this morning he states he wants to try it, but only one treatment. I had a further discussion with him and I stated to the patient that we cannot have just one dialysis treatment. We need to try it for at lease 1 to 2 weeks. He has been informed regarding the risks associated with ongoing advanced renal failure with a creatinine of 10.9 and BUN of 97. Patient is agreeable to trying dialysis for at least 1 to 2 weeks. On examination today, blood pressure is 140/87, heart rate 74 per minute. He is afebrile. Examination of the heart S1 and S2. Examination of the lungs, bilateral breath sounds are heard. Abdomen is soft, nontender. Examination of lower extremities shows no evidence of edema. [employer] SPECIALIST exam is grossly intact. Labs show sodium 140, potassium 5.0, BUN 97, serum creatinine 10.96. Hemoglobin 7.8 g/dL. Stool for occult blood was positive ASSESSMENT: 1. Chronic kidney disease stage V. Patient is agreeable to starting renal replacement therapy and he will need to be dialyzed for at least 1 to 2 weeks before he can discontinue treatment. 2. Severe acute pancreatitis, slowly improving. 3. History of cocaine abuse. 4. Gastrointestinal bleed with stool for occult blood being positive. 5. Anemia of chronic disease, maintained on Aranesp. PLAN: Consult Vascular Surgery for dialysis catheter placement and will start with first treatment most likely tomorrow depending on when the catheter is placed.
--- NOTE | 2016-10-20 12:53 | P.PN ---
Subjective Principal diagnosis: Pancreatitis Patient is evaluated on selective care unit. Patient complains of right upper quadrant pain and left back pain. Patient states he had 2 bowel movements this morning with streaks of blood. Hemoglobin stable at 7.8. Stool for occult blood positive. Patient reports hunger. Denies chills, nausea, vomiting, constipation or diarrhea. Patient is tolerating a full liquid diet and has been advanced to soft foods diet per medicine. Patient has agreed to dialysis and is scheduled for hemodialysis catheter today. Lipase decreased to 3698. Objective - Vital Signs Vital signs: Vital Signs Temp 96.4 F L 10/20/16 08:00 Pulse 74 10/20/16 08:00 Resp 18 10/20/16 03:09 BP 140/87 10/20/16 08:00 Pulse Ox 96 10/20/16 08:00 Intake & Output 10/19/16 10/20/16 10/20/16 18:59 06:59 18:59 Intake Total 2256 650 Output Total 200 100 Balance 2056 550 Weight 59.9 kg Intake: IV 1280 650 Sodium Chloride 0.9% 1, 1200 600 000 ml @ 75 mls/hr IV . [id number] [facility] Rx#:[id number] cefTRIAXone 1,000 mg In 80 50 Sodium Chloride 0.9% 50 ml @ 100 mls/hr IVPB Q24H [facility] Rx#:[id number] Oral 976 Output: Urine 200 100 Other: Voiding Method Urinal Urinal - Exam GENERAL: Pt awake and alert, in no acute distress. HEAD: Atraumatic, normocephalic. EYES: Pupils equal, round, sclera anicteric, conjunctiva are normal. ENT: Moist mucous membranes. LUNGS: Breath sounds diminished to auscultation bilaterally. No wheezes, rales , or rhonchi. HEART: Heart S1, S2, no S3 or S4. Regular rate and rhythm. No murmurs, rubs or gallops. ABDOMEN: Soft, mild epigastric and right upper quadrant tenderness, nondistended , normoactive bowel sounds. No guarding, no rebound. No masses or organomegaly appreciated. NEUROLOGICAL: Pt oriented x 3. - Labs CBC & Chem 7: 10/20/16 07:20 10/20/16 07:20 Labs: Abnormal Lab Results - Last 24 Hours (Table) 10/20/16 10/20/16 10/20/16 Range/Units 07:20 07:20 09:22 RBC 2.42 L (4.30-5.90) m/uL Hgb 7.8 L (13.0-17.5) gm/dL Hct 22.5 L (39.0-53.0) % Carbon Dioxide 21 L (22-30) mmol/L BUN 97 H* (9-20) mg/dL Creatinine 10.96 H* (0.66-1.25) mg/dL Calcium 7.6 L (8.4-10.2) mg/dL Alkaline Phosphatase 183 H (38-126) U/L Total Protein 6.1 L (6.3-8.2) g/dL Albumin 2.9 L (3.5-5.0) g/dL Lipase 3698 H (23-300) U/L Crossmatch See Detail Assessment and Plan Plan: Impression: 1. Acute on chronic pancreatitis. Lipase 14,743 on admission, 3698 today. 2. Acute on chronic renal failure. Patient has agreed to dialysis. 3. Urinary tract infection. 4. Gallbladder distention with common bile duct mildly enlarged measuring 9 mm without evidence of acute cystitis. 5. Bilateral fat-containing inguinal hernias with partial extension of the anterior urinary bladder into the right inguinal hernia. 6. EtOH abuse. 7. Cocaine abuse. 8. Anemia with lower GI bleed. Stool positive for occult blood. Hemoglobin 7.8. Continue to monitor. Plan: 1. Continue soft foods diet. Continue supportive treatment and pain management. Continue to follow with GI service, nephrology service, and medical service. Repeat lipase in a.m. The above impression and plan have been discussed and directed by Dr. Gandhi. Azucena GILES acting as scribe for Dr. Gandhi.
--- NOTE | 2016-10-20 14:00 | P.WCPCN ---
[facility] Selective Debridemen 66-year-old gentleman, on history of chronic renal failure, history of hepatitis C, history of peritonitis, I was consulted for placement of the dialysis catheter Medical history history of 4 chronic renal failure hepatitis C personal history history of smoking continue to smoke on examination neck is supple Chest is clear auscultation first and second sound normal Abdomen soft no peritoneal sign noted Vascular examination femorals are palpable dorsal pedis posterior vagus by the Doppler patient has a brachial radial palpable Impression is a decub current renal failure history of Hep C history appendicitis Plan is placement of the dialysis catheter risk and complication discussed bleeding infection thrombosis
[2016-10-20 14:34] LABS: Hemoglobin A1C 5.3 % (4.2-6.1)
[2016-10-20] MEDS ORDERED: IV FLUID CONTINUATION 1,000 ML IV ONE (16:30)
[2016-10-20] MEDS: MIDAZOLAM 2 MG/2 ML VIAL IV ONE ×2 (16:53→16:59)
[2016-10-20] MEDS ORDERED: LIDOCAINE 2% INJ 20 MG/ML SQ ONE ×2 (16:53→17:02)
[2016-10-20] MEDS ORDERED: HYDROmorphone 2 MG/ML 1 ML SYRINGE IV ONE (17:06)
--- NOTE | 2016-10-20 17:21 | P.PCN ---
Description of Procedure: Preoperative diagnoses is acute chronic renal failure Procedure ultrasound-guided 28 cm dialysis catheter placed through a right internal jugular vein Patient was brought to the [employer] Jason of the chest and neck was prepped and draped applied in the usual standard manner 1% lidocaine was infiltrated and neck area with IV sedation ultrasound guided micropuncture introduced to the right intrajugular vein and a cholangiocatheter was passed and then we passed a regular guidewire under fluoroscopy catheter was advanced into the inferior vena cava after that tendon was created through the terminal be brought 28 same dialysis catheter dilator were advanced. The guidewire and sheath was advanced on the top of the guidewire through the sheath we introduced a 28 same dialysis catheter tip of the catheter was a superior and a cava and atrium flushed with heparin saline and Hep-Lock and incision was closed with Vicryl and nylon patient brought to the procedure well Michel will have a chest x-ray
--- NOTE | 2016-10-20 18:27 | XR ---
EXAMINATION TYPE: XR chest 1V portable DATE OF EXAM: 10/20/2016 5:46 PM COMPARISON: 07/11/2016 HISTORY: Post catheter placement TECHNIQUE: Single frontal view of the chest is obtained. FINDINGS: Right IJ catheter present, with tips over the distal SVC and cavoatrial junction. There is no focal air space opacity, pleural effusion, or pneumothorax seen. The cardiac silhouette size is within normal limits. The osseous structures are intact. IMPRESSION: No acute process.
[2016-10-20] MEDS: ZOLPIDEM 5 MG TAB PO PRN (21:59)
[2016-10-21] MEDS: HYDROmorphone 1 MG/ML 1 ML SYRINGE IVP PRN ×7 (00:02→23:11)
[2016-10-21] MEDS: SODIUM CHLORIDE 0.9% 1,000 ML IV SCH ×2 (05:37→16:14)
[2016-10-21 06:46] LABS: Basophils # (A) 0.1 k/uL (0-0.2); Basophils % (A) 1 %; CH 32.5; CHCM 35.1; Eosinophils # (A) 0.2 k/uL (0-0.7); Eosinophils % (A) 2 %; HCT 28.5 % (39.0-53.0); HDW 3.65; Luc # (Auto) 0.17; Luc % (Auto) 3; Lymphocytes # (A) 0.9 k/uL (1.0-4.8); Lymphocytes % (A) 13 %; MCH 31.9 pg (25.0-35.0); MCHC 34.2 g/dL (31.0-37.0); MCV 93.4 fL (80.0-100.0); Mean Platelet Volume 7.3; Monocytes # (A) 0.7 k/uL (0-1.0); Monocytes % (A) 10 %; Neutrophils # (A) 4.8 k/uL (1.3-7.7); Neutrophils % (A) 71 %; Poikilocytosis Slight; RBC 3.05 m/uL (4.30-5.90); RDW 15.5 % (11.5-15.5); WBC 6.8 k/uL (3.8-10.6); WBC (Perox) 6.73
[2016-10-21 06:47] LABS: Glucose,Whole Blood 112 mg/dL (75-99)
[2016-10-21 06:48] LABS: HGB 9.7 gm/dL (13.0-17.5)
[2016-10-21 07:00] LABS: Calcium 8.3 mg/dL (8.4-10.2); Total Bilirubin 0.5 mg/dL (0.2-1.3); Total Protein 6.2 g/dL (6.3-8.2)
--- NOTE | 2016-10-21 07:49 | PN ---
SUBJECTIVE: 66-year-old male who has agreed to get dialysis if we give him food. After a long discussion with the patient apparently he was stealing food from a neighbor in his room in bed 1 and he is in bed 2. He has agreed to get dialysis and get treatment for this. VITAL SIGNS: Stable, afebrile. GI: Soft HEMATOLOGIC: Negative Homans. Temperature 97.4, pulse 59 to 62, respiratory rate 16 to 18, blood pressure 150s to 180s over 90s, O2 96% on room air. Labs show hemoglobin 7.8. He has severe anemia. Oncology does not want to do anything as far as endoscopy at this time. Will probably give him some iron injections and treat his severe renal insufficiency with dialysis and let him eat at this point even though he has elevated lipase of 3698, which is decreased from the day before. Extremely poor prognosis.
--- NOTE | 2016-10-21 08:38 | IR ---
Fluoroscopy HISTORY: Renal failure 0.3 minutes fluoroscopy time supplied to the referring clinician. 95 intraoperative C-arm images doc ument the procedure. See dictated report from vascular surgery.
[2016-10-21] MEDS: amLODIPine 5 MG TAB PO SCH (08:50)
[2016-10-21] MEDS: SODIUM BICARBONATE TAB 650 MG TAB PO SCH ×2 (08:50→23:11)
--- NOTE | 2016-10-21 09:05 | P.PN ---
Subjective Principal diagnosis: pancreatitis 66-year-old gentleman reevaluated today in regards to pancreatitis on admission. Additionally he was admitted with acute renal failure permacath placement status post dialysis. Urine drug screen positive for cocaine. Patient states he was drinking alcohol prior to admission. Pancreatitis is slowly improving. He reports minimal abdominal discomfort. Over the last few days he had some intermittent bowel movements lower abdominal mild cramping, bowel movements were mixed with dark red blood since result. Last colonoscopy about 2 years ago in the [facility] to his memory was normal. He received a unit of blood and current hemoglobin is 9.7 previously 7.8. Creatinine improving 6.2. Objective - Vital Signs Vital signs: Vital Signs Temp 98.2 F 10/21/16 08:00 Pulse 78 10/21/16 08:00 Resp 16 10/21/16 04:00 BP 135/72 10/21/16 08:00 Pulse Ox 96 10/21/16 08:00 Intake & Output 10/20/16 10/21/16 10/21/16 18:59 06:59 18:59 Intake Total 1065 1010 360 Output Total 300 0 Balance 765 1010 360 Weight 59.9 kg 60.4 kg Intake: IV 450 700 Sodium Chloride 0.9% 1, 400 600 000 ml @ 75 mls/hr IV . [id number] [facility] Rx#:[id number] cefTRIAXone 1,000 mg In 100 Sodium Chloride 0.9% 50 ml @ 100 mls/hr IVPB Q24H [facility] Rx#:[id number] Intake, IV Titration 375 Amount Sodium Chloride 0.9% 1, 375 000 ml @ 75 mls/hr IV . [id number] [facility] Rx#:[id number] Oral 240 360 Blood Product 310 Rc Pheresis 2 As3 Unit 310 [id number] Output: Urine 300 Stool 0 Other: Voiding Method Urinal # Voids 1 0 # Bowel Movements 0 - Exam General appearance: The patient is alert, oriented, in no acute distress. HET: Head is normocephalic and atraumatic. Pupils are equal and reactive. Oropharynx is clear without lesions. Neck: Supple without lymphadenopathy. Trachea midline. Heart: S1 S2. Regular rate and rhythm. Permacath without erythema or drainage. Lungs: No crackles or wheezes are heard. Abdomen: Soft, nontender, nondistended with bowel sounds. No peritoneal signs. No palpable organomegaly or masses. Extremities: Normal skin color and turgor. No cyanosis, rash, ulceration, clubbing, or edema. Radial and pedal pulses are 2/4 bilaterally. Neurological: No focal deficits. Strength and sensation are grossly intact. - Labs CBC & Chem 7: 10/21/16 06:05 10/21/16 06:05 Labs: Abnormal Lab Results - Last 24 Hours (Table) 10/20/16 10/20/16 10/21/16 Range/Units 07:20 09:22 06:05 RBC (4.30-5.90) m/uL Hgb (13.0-17.5) gm/dL Hct (39.0-53.0) % Lymphocytes # (1.0-4.8) k/uL Carbon Dioxide 21 L (22-30) mmol/L BUN 97 H* 48 H (9-20) mg/dL Creatinine 10.96 H* 6.25 H* (0.66-1.25) mg/dL POC Glucose (mg/dL) (75-99) mg/dL Calcium 7.6 L 8.3 L (8.4-10.2) mg/dL Alkaline Phosphatase 183 H 201 H (38-126) U/L Total Protein 6.1 L 6.2 L (6.3-8.2) g/dL Albumin 2.9 L 3.1 L (3.5-5.0) g/dL Lipase 3698 H 2813 H (23-300) U/L Crossmatch See Detail 10/21/16 10/21/16 Range/Units 06:05 06:23 RBC 3.05 L (4.30-5.90) m/uL Hgb 9.7 L D (13.0-17.5) gm/dL Hct 28.5 L (39.0-53.0) % Lymphocytes # 0.9 L (1.0-4.8) k/uL Carbon Dioxide (22-30) mmol/L BUN (9-20) mg/dL Creatinine (0.66-1.25) mg/dL POC Glucose (mg/dL) 112 H (75-99) mg/dL Calcium (8.4-10.2) mg/dL Alkaline Phosphatase (38-126) U/L Total Protein (6.3-8.2) g/dL Albumin (3.5-5.0) g/dL Lipase (23-300) U/L Crossmatch Assessment and Plan (1) Rectal bleeding Narrative/Plan: Etiology unclear could be ischemic possible inflammatory colitis. Upper GI source cannot be entirely excluded with possible underlying alcohol-induced gastropathy gastritis possible esophagitis or combination of both or an upper sources contributed to the bleeding. Status: Acute (2) Acute blood loss anemia Narrative/Plan: Multifactorial with a component of GI loss and renal failure to beading to the anemia. Status: Acute (3) Cocaine abuse Status: Acute (4) Pancreatitis Narrative/Plan: Multifactorial clinically suspect illicit drug-induced and component of daily alcohol consumption in conjunction with acute renal failure Status: Acute (5) Renal failure, acute Status: Acute Plan: 1. Endoscopy not planned at this time unless patient has recurrent bleeding. Continue to monitor CBC closely. Will add Protonix 40 mg daily. Drug and alcohol abuse abstinence was strongly advised. Soft diet as tolerated. Will follow as needed. Assessment and plan of care discussed with Dr. Smith.
[2016-10-21 10:23] LABS: Hepatitis B Surface Ag Index 0.06
[2016-10-21 10:42] LABS: Hepatitis C Virus IgG Ab Reactive (Negative)
[2016-10-21 10:52] LABS: Hepatitis B Core IgM Index 0.06
--- NOTE | 2016-10-21 11:11 | P.PN ---
Subjective 66-year-old male being seen on rounds with the attending this morning patient was seen and examined. Patient did receive dialysis yesterday for acute renal failure. Patients being followed by GI and nephrology service. Patients being treated for pancreatitis. Patient's urine drug screen this admission positive for cocaine. GI service was requested to see the patient for intermittent bowel movements lower abdominal cramping with dark red blood noted. Patient reports last colonoscopy 2 years prior. The colonoscopy was done in [place] into his recall was normal. Patient did receive a unit of packed red blood cells this admission hemoglobin this morning 9.7 the lipase this morning [id number] 8 did note the hepatitis panel. Stool positive for occult blood. Admission the creatinine was 12 this morning 6.25 Objective - Vital Signs Vital signs: Vital Signs Temp 98.2 F 10/21/16 08:00 Pulse 78 10/21/16 08:00 Resp 16 10/21/16 04:00 BP 135/72 10/21/16 08:00 Pulse Ox 96 10/21/16 08:00 Intake & Output 10/20/16 10/21/16 10/21/16 18:59 06:59 18:59 Intake Total 1065 1010 435 Output Total 300 0 Balance 765 1010 435 Weight 59.9 kg 60.4 kg Intake: IV 450 700 75 Sodium Chloride 0.9% 1, 400 600 75 000 ml @ 75 mls/hr IV . [id number] [facility] Rx#:[id number] cefTRIAXone 1,000 mg In 100 Sodium Chloride 0.9% 50 ml @ 100 mls/hr IVPB Q24H [facility] Rx#:[id number] Intake, IV Titration 375 Amount Sodium Chloride 0.9% 1, 375 000 ml @ 75 mls/hr IV . [id number] [facility] Rx#:[id number] Oral 240 360 Blood Product 310 Rc Pheresis 2 As3 Unit 310 [id number] Output: Urine 300 Stool 0 Other: Voiding Method Urinal # Voids 1 0 # Bowel Movements 0 - Exam Physical exam 66-year-old male resting in bed does not appear in any acute distress Lungs essentially clear adequate air movement Heart S1-S2 audible regular Abdomen flat nontender Extremities no edema noted - Labs CBC & Chem 7: 10/21/16 06:05 10/21/16 06:05 Labs: Abnormal Lab Results - Last 24 Hours (Table) 10/20/16 10/20/16 10/21/16 Range/Units 07:20 09:22 06:05 RBC (4.30-5.90) m/uL Hgb (13.0-17.5) gm/dL Hct (39.0-53.0) % Lymphocytes # (1.0-4.8) k/uL Carbon Dioxide 21 L (22-30) mmol/L BUN 97 H* 48 H (9-20) mg/dL Creatinine 10.96 H* 6.25 H* (0.66-1.25) mg/dL POC Glucose (mg/dL) (75-99) mg/dL Calcium 7.6 L 8.3 L (8.4-10.2) mg/dL Alkaline Phosphatase 183 H 201 H (38-126) U/L Total Protein 6.1 L 6.2 L (6.3-8.2) g/dL Albumin 2.9 L 3.1 L (3.5-5.0) g/dL Lipase 3698 H 2813 H (23-300) U/L Crossmatch See Detail 10/21/16 10/21/16 Range/Units 06:05 06:23 RBC 3.05 L (4.30-5.90) m/uL Hgb 9.7 L D (13.0-17.5) gm/dL Hct 28.5 L (39.0-53.0) % Lymphocytes # 0.9 L (1.0-4.8) k/uL Carbon Dioxide (22-30) mmol/L BUN (9-20) mg/dL Creatinine (0.66-1.25) mg/dL POC Glucose (mg/dL) 112 H (75-99) mg/dL Calcium (8.4-10.2) mg/dL Alkaline Phosphatase (38-126) U/L Total Protein (6.3-8.2) g/dL Albumin (3.5-5.0) g/dL Lipase (23-300) U/L Crossmatch Assessment and Plan Plan: Impression Acute blood loss anemia multifactorial component of GI loss and acute renal failure Urine drug screen positive for acute cocaine Present on admission elevated lipase acute pancreatitis multifactorial suspect illicit drug-induced component of daily alcohol consumption with acute renal failure Episode of rectal bleeding etiology unclear could be ischemic possible inflammatory colitis upper GI source cannot be entirely excluded possible underlying alcohol induced gastropathy gastritis possible esophagitis or commendation of both contributing to the bleeding Present on admission acute renal failure requiring hemodialysis Hyperkalemia suspect due to acute renal failure Acute on chronic renal failure stage IV Status post dialysis catheter placed first of October Daily on chronic pancreatitis Chronic EtOH abuse Gallbladder distention with common bile duct mildly enlarged without evidence of acute cystitis Bilateral fat-containing inguinal hernias with partial bowel extension of the anterior urinary bladder into the right inguinal area on admission UTI urine culture positive for enterococcus faecalis on IV Rocephin Chronic kidney disease stage IV Issues of medical noncompliance with follow-up and medication Plan Discuss with nephrology service patient can start Levaquin for the UTI stop the IV Rocephin Await further input by nephrology service Decrease IV pain medication DVT and GI prophylaxis Further recommendations pending will follow The above dictated assessment and findings were discussed with dr olson Impression and the plan of care have been dictated as directed. Taina Urbnia nurse practitioner acting as a scribe for dr olson
[2016-10-21 11:37] LABS: Glucose,Whole Blood 110 mg/dL (75-99)
[2016-10-21] MEDS ORDERED: LEVOFLOXACIN 500 MG TAB PO SCH (12:00)
[2016-10-21] MEDS: PANTOPRAZOLE 40 MG TABLET PO SCH (12:37)
--- NOTE | 2016-10-21 13:45 | P.PN ---
Subjective Principal diagnosis: Pancreatitis Patient is evaluated on selective care unit where he is currently receiving hemodialysis. Patient complains of right upper quadrant pain and left back pain states pain is improved since yesterday. Denies nausea or vomiting. Patient denies further rectal bleeding. Hemoglobin 9.7 status post transfusion of 1 unit of packed cells. Patient tolerating diet. Lipase improving. Objective - Vital Signs Vital signs: Vital Signs Temp 98.2 F 10/21/16 08:00 Pulse 78 10/21/16 08:00 Resp 16 10/21/16 04:00 BP 135/72 10/21/16 08:00 Pulse Ox 96 10/21/16 08:00 Intake & Output 10/20/16 10/21/16 10/21/16 18:59 06:59 18:59 Intake Total 1065 1010 555 Output Total 300 0 Balance 765 1010 555 Weight 59.9 kg 60.4 kg Intake: IV 450 700 75 Sodium Chloride 0.9% 1, 400 600 75 000 ml @ 75 mls/hr IV . [id number] [facility] Rx#:[id number] cefTRIAXone 1,000 mg In 100 Sodium Chloride 0.9% 50 ml @ 100 mls/hr IVPB Q24H [facility] Rx#:[id number] Intake, IV Titration 375 Amount Sodium Chloride 0.9% 1, 375 000 ml @ 75 mls/hr IV . [id number] [facility] Rx#:[id number] Oral 240 480 Blood Product 310 Rc Pheresis 2 As3 Unit 310 [id number] Output: Urine 300 Stool 0 Other: Voiding Method Urinal # Voids 1 0 # Bowel Movements 0 - Exam GENERAL: Pt awake and alert, in no acute distress. HEAD: Atraumatic, normocephalic. EYES: Pupils equal, round, sclera anicteric, conjunctiva are normal. ENT: Moist mucous membranes. LUNGS: Breath sounds diminished to auscultation bilaterally. No wheezes, rales , or rhonchi. HEART: Heart S1, S2, no S3 or S4. Regular rate and rhythm. No murmurs, rubs or gallops. ABDOMEN: Soft, mild epigastric and right upper quadrant tenderness, nondistended , normoactive bowel sounds. No guarding, no rebound. No masses or organomegaly appreciated. NEUROLOGICAL: Pt oriented x 3. - Labs CBC & Chem 7: 10/21/16 06:05 05/02/17 06:05 Labs: Abnormal Lab Results - Last 24 Hours (Table) 10/20/16 10/21/16 10/21/16 Range/Units 09:22 06:05 06:05 RBC 3.05 L (4.30-5.90) m/uL Hgb 9.7 L D (13.0-17.5) gm/dL Hct 28.5 L (39.0-53.0) % Lymphocytes # 0.9 L (1.0-4.8) k/uL BUN 48 H (9-20) mg/dL Creatinine 6.25 H* (0.66-1.25) mg/dL POC Glucose (mg/dL) (75-99) mg/dL Calcium 8.3 L (8.4-10.2) mg/dL Alkaline Phosphatase 201 H (38-126) U/L Total Protein 6.2 L (6.3-8.2) g/dL Albumin 3.1 L (3.5-5.0) g/dL Lipase 2813 H (23-300) U/L Crossmatch See Detail 10/21/16 10/21/16 Range/Units 06:23 11:33 RBC (4.30-5.90) m/uL Hgb (13.0-17.5) gm/dL Hct (39.0-53.0) % Lymphocytes # (1.0-4.8) k/uL BUN (9-20) mg/dL Creatinine (0.66-1.25) mg/dL POC Glucose (mg/dL) 112 H 110 H (75-99) mg/dL Calcium (8.4-10.2) mg/dL Alkaline Phosphatase (38-126) U/L Total Protein (6.3-8.2) g/dL Albumin (3.5-5.0) g/dL Lipase (23-300) U/L Crossmatch Assessment and Plan Plan: Impression: 1. Acute on chronic pancreatitis. Lipase 14,743 on admission, 2813 today. 2. Acute on chronic renal failure, improving. 3. Urinary tract infection. 4. Gallbladder distention with common bile duct mildly enlarged measuring 9 mm without evidence of acute cystitis. 5. Bilateral fat-containing inguinal hernias with partial extension of the anterior urinary bladder into the right inguinal hernia. 6. EtOH abuse. 7. Cocaine abuse. 8. Anemia with lower GI bleed. Stool positive for occult blood. Hemoglobin 9.7 from 7.8 status post 1 unit of PRBC. GI service following, no plans for endoscopy at this time. Plan: 1. Continue soft foods diet. Continue supportive treatment and pain management. Patient is not a surgical candidate at this time. We'll sign off service. Please re-consult with any concerns. The above impression and plan have been discussed and directed by Dr. Gandhi. Azucena GILES acting as scribe for Dr. Gandhi.
--- NOTE | 2016-10-21 20:49 | PN ---
Patient is seen for followup for CKD/end-stage renal disease. He has been started on dialysis. He will be having his second treatment today. Patient is currently lying in bed. He is complaining of some soreness at the site of the Perm-A-Cath. No other significant symptoms. On examination, blood pressure was 135/88, heart rate 70 per minute. He is afebrile. EXAMINATION OF THE HEART: S1 and S2. EXAMINATION OF THE LUNGS: Bilateral breath sounds are heard. ABDOMEN: Soft, nontender. 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 No edema is noted. PROGRAM INSTRUCTOR exam is grossly intact. Labs show sodium 143, potassium 5.0, BUN 48, serum creatinine 6.25. Hemoglobin 9.7 g/dL. ASSESSMENT: 1. End-stage renal disease, currently started on dialysis. I had a discussion with the patient regarding need to continue with his dialysis treatments, and I have stated to him that if he decides not to continue with dialysis, we will need to remove his Perm-A-Cath prior to discharge. He does have a history of drug abuse, and we need to make sure he is compliant with his hemodialysis treatments. Otherwise the catheter needs to be discontinued. 2. Acute pancreatitis, slowly improving. 3. Cocaine abuse. 4. Anemia, status post packed RBC transfusion. No active bleeding noted at this time. 5. Urinary tract infection with Enterococcus faecalis, started on Levaquin. He should be okay with about 5 days of treatment. PLAN: Need to decide regarding outpatient dialysis prior to discharge of the patient.
[2016-10-22] MEDS: HYDROmorphone 1 MG/ML 1 ML SYRINGE IVP PRN ×3 (03:41→12:01)
[2016-10-22] MEDS: SODIUM CHLORIDE 0.9% 1,000 ML IV SCH (06:17)
[2016-10-22 07:31] VITALS: RESP 22; TEMP 99.4
[2016-10-22] MEDS: amLODIPine 5 MG TAB PO SCH (07:38)
[2016-10-22] MEDS: SODIUM BICARBONATE TAB 650 MG TAB PO SCH (07:38)
[2016-10-22] MEDS: PANTOPRAZOLE 40 MG TABLET PO SCH (07:38)
[2016-10-22 09:51] LABS: CH 32.2; HCT 26.3 % (39.0-53.0); HGB 8.9 gm/dL (13.0-17.5); MCH 32.3 pg (25.0-35.0); MCHC 33.8 g/dL (31.0-37.0); MCV 95.3 fL (80.0-100.0); Mean Platelet Volume 7.7; Poikilocytosis Slight; RBC 2.75 m/uL (4.30-5.90); RDW 15.7 % (11.5-15.5); WBC 7.6 k/uL (3.8-10.6); WBC (Perox) 7.59
[2016-10-22 10:01] LABS: Calcium 8.3 mg/dL (8.4-10.2); Potassium 4.7 mmol/L (3.5-5.1)
[2016-10-22 11:24] LABS: Add Differential Manual Differential
[2016-10-22 11:31] LABS: Metamyelocytes % 0.5 %; Nucleated Red Blood Cells 0 /100 WBC (0-0); Promyelocytes % 0.5 %; Total Cells Counted 200
[2016-10-22 11:32] LABS: Polychromasia Present
[2016-10-22] MEDS ORDERED: LEVOFLOXACIN 250 MG TAB PO SCH (12:00)
[2016-10-22 14:45] VITALS: BMI 20.2
[2016-10-22] MEDS ORDERED: HYDROmorphone 1 MG/ML 1 ML SYRINGE IVP PRN (15:26)
--- NOTE | 2016-10-22 15:26 | P.PN ---
Subjective 66-year-old male being seen with the attending seen and examined. Patient was seen earlier in the day by Dr. Guerra nephrology who did discuss with the patient the need to be on hemodialysis long-term due to patient's renal failure. Patient is adamant and refusing to undergo long-term hemodialysis treatment. The attending Dr. Olson did explain to the patient the patient is at a risk of dying from renal failure the patient does not undergo hemodialysis treatment for the chronic renal failure. Patient is stating he doesn't care he does not want to undergo treatment for his renal failure he thought a couple dialysis treatments would work. The attending Dr. Olson did inform the patient the risk of not undergoing treatment for the chronic renal failure that there was a potential the patient could sooner without treatment patient again is adamant in refusing stating he does not care doesn' t want to sooner if he lives a couple years that would be fine" Dr. cook the director of medicare did inform the patient that the permacath would need to be removed if the patient is not going to undergo further dialysis graft The hemoglobin this morning is 8.9 permacath is scheduled to be removed this afternoon Objective - Vital Signs Vital signs: Vital Signs Temp 99.4 F 10/22/16 07:00 Pulse 73 10/22/16 08:00 Resp 22 10/22/16 08:00 BP 172/90 10/22/16 07:00 Pulse Ox 97 10/22/16 07:00 Intake & Output 10/21/16 10/22/16 10/22/16 18:59 06:59 18:59 Intake Total 855 1040 480 Output Total 0 1450 350 Balance 855 -410 130 Weight 60.4 kg Intake: IV 375 Sodium Chloride 0.9% 1, 375 000 ml @ 75 mls/hr IV . [id number] [facility] Rx#:[id number] Oral 480 1040 480 Output: Urine 1450 350 Stool 0 0 Other: Voiding Method Urinal Urinal # Voids 1 1 - Exam Physical exam 66-year-old male resting in bed does not appear in any acute distress Lungs essentially clear adequate air movement Heart S1-S2 audible regular Abdomen flat nontender no nausea no vomiting Extremities no edema noted left BKA - Labs CBC & Chem 7: 10/22/16 08:14 10/22/16 08:14 Labs: Abnormal Lab Results - Last 24 Hours (Table) 10/22/16 10/22/16 Range/Units 08:14 08:14 RBC 2.75 L (4.30-5.90) m/uL Hgb 8.9 L (13.0-17.5) gm/dL Hct 26.3 L (39.0-53.0) % RDW 15.7 H (11.5-15.5) % Chloride 108 H (98-107) mmol/L BUN 37 H (9-20) mg/dL Creatinine 4.71 H (0.66-1.25) mg/dL Glucose 120 H (74-99) mg/dL Calcium 8.3 L (8.4-10.2) mg/dL Lipase 2927 H (23-300) U/L Assessment and Plan Plan: Impression Acute blood loss anemia multifactorial component of GI loss and acute renal failure Urine drug screen positive for acute cocaine Present on admission elevated lipase acute pancreatitis multifactorial suspect illicit drug-induced component of daily alcohol consumption with acute renal failure Episode of rectal bleeding etiology unclear could be ischemic possible inflammatory colitis upper GI source cannot be entirely excluded possible underlying alcohol induced gastropathy gastritis possible esophagitis or commendation of both contributing to the bleeding Present on admission acute renal failure requiring hemodialysis Hyperkalemia suspect due to acute renal failure Acute on chronic renal failure stage IV Status post dialysis catheter placed first october acute on chronic pancreatitis Chronic EtOH abuse Gallbladder distention with common bile duct mildly enlarged without evidence of acute cystitis Bilateral fat-containing inguinal hernias with partial bowel extension of the anterior urinary bladder into the right inguinal area present on admission UTI urine culture positive for enterococcus faecalis on IV Rocephin Chronic kidney disease stage IV Issues of medical noncompliance with follow-up and medication Cocaine abuse Plan Discuss with nephrology service patient can start Levaquin for the UTI Await further input by nephrology service Decrease IV pain medication DVT and GI prophylaxis Further recommendations pending will follow Will obtain a psych referral for legal competency issues patient is felt to be in, we'll pursue a legal guardian The above dictated assessment and findings were discussed with dr wesley Vitale and the plan of care have been dictated as directed. Taina Urbina nurse practitioner acting as a scribe for dr olson
[2016-10-22] MEDS ORDERED: traMADol 50 MG TAB PO PRN (15:27)
[2016-10-22 15:41] VITALS: BP 158/91; PULSE 85
--- NOTE | 2016-10-22 17:23 | PN ---
Patient is seen for followup for end-stage renal disease. He has had 2 treatments of dialysis. I asked the patient today if he wants to continue with renal replacement therapy, and he states that he does not want to continue at this time. He also states he will most likely not be coming for outpatient treatments if he is discharged, and considering the fact that he has a history of drug abuse, I do not want to discharge him with the Perm-A-Cath. I advised the patient regarding the risks of not pursuing renal replacement therapy with CKD, stage V, including risk of . He understands and states he still wishes to stop dialysis. On examination, blood pressure is 172/90; it came down to 158/91. Heart rate 85 per minute. He is afebrile. EXAMINATION OF THE HEART: S1 and S2. EXAMINATION OF THE LUNGS: Bilateral breath sounds are heard. ABDOMEN: Soft, nontender. Examination of lower extremities shows no evidence of edema. Left BKA is noted. Labs show sodium 143, potassium 4.7, BUN 37, serum creatinine 4.7. Hemoglobin 8.9 g/dL. ASSESSMENT: 1. End-stage renal disease, status post two treatments of hemodialysis. At this time patient states that he does not want to continue with renal replacement therapy; therefore we will discontinue the Perm-A-Cath prior to discharge. Hopefully the catheter will be discontinued today or tomorrow. 2. Severe pancreatitis, currently slowly improving. Lipase is actually higher today compared to yesterday. Patient is being followed by Surgery. 3. History of cocaine abuse, present on admission. 4. Anemia secondary to gastrointestinal bleed as well as anemia of chronic disease. PLAN: As per patient's wishes, we will not continue with dialysis, and his Perm-A-Cath will be removed.
--- NOTE | 2016-10-23 08:43 | PCN ---
DATE OF PROCEDURE: Patient was seen in the room. Right side of the neck was prepped and draped in a sterile manner. Patient had a dialysis catheter placed in house a few days ago. I was called in for removal of the dialysis catheter. The stitches were removed and catheter was removed. Pressure dressing applied. Patient tolerated the procedure well.
--- NOTE | 2016-10-24 22:07 | DS ---
DATE OF ADMISSION: 10/16/2016 DATE OF DISCHARGE: 10/22/2016 DISCHARGE DIAGNOSES: 1. Acute on chronic pancreatitis. 2. Acute on chronic renal failure with end-stage renal disease. 3. Severe pancreatitis. 4. History of cocaine abuse. 5. Anemia secondary to gastrointestinal bleed. 6. Anemia of chronic disease. 7. Postural dizziness. 8. Acute kidney injury secondary to severe pancreatitis. 9. Anion-gap acidosis. PLAN: Outpatient dialysis, even though patient refuses it at this time. Prognosis extremely guarded. No home medicines were given. Follow up in my office in 1 to 2 days. Follow up with outpatient dialysis 3 times a week. HOSPITAL COURSE OF THE COURSE OF EVENTS: This is a patient who was placed with Perm-A-Cath for outpatient dialysis. Patient underwent 2 dialysis treatments while in the hospital. His creatinine went from 13 down to 5. The patient will follow up as an outpatient for more dialysis if he desires to; otherwise patient knows he will probably end up passing away, at high risk for dying. His metabolic abnormalities were taken care of in the hospital and further medications were given by his kidney doctor as well as Surgery on consult.
--- NOTE | 2016-10-25 20:33 | DS ---
DATE OF ADMISSION: 10/16/2016 DATE OF DISCHARGE: 10/22/2016 DISCHARGE MEDICATIONS: MEDICATIONS: None. CONDITION: Guarded. PROGNOSIS: Extremely guarded. Hospital course of events: This is a 66-year-old male who was admitted with severe pancreatitis and cocaine abuse, severe rhabdomyolysis, severe renal failure. Creatinine 5 up to 13. The patient had 2 episodes of dialysis and then refused any other dialysis. He understands the risk of dying and he will follow up with renal physician in the next couple days. If he wants to have dialysis again and survive, he understands his risk of . A long discussion was seen with a kidney doctor and as well with myself and surgeon, Dr. Gandhi, seen for pancreatitis. Creatinine is 4.76 on discharge. He will follow up in next day or 2 with renal physician. Prognosis is significantly guarded.
== END 2016-10-22 17:38 | disposition left against medical advice (07) | DRG 682 ==
LOC: EC 20:22 → 6ICU 10-16 01:22 → 6SEL 10-16 13:34 → 4MS4W 10-21 15:59
PROVIDERS: ADMIT Family Medicine; ATTEND Family Medicine
PROC: B543ZZA Ultrasonography of Right Jugular Veins, Guidance (ICD-10-PCS; principal; 2016-10-20 16:30)
PROC: 05HM33Z Insertion of Infusion Device into Right Internal Jugular Vein, Percutaneous Approach (ICD-10-PCS; principal; 2016-10-20 16:30)
PROC: 5A1D60Z (ICD-10-PCS; 2016-10-20 16:30)
PROC: 05PYX3Z Removal of Infusion Device from Upper Vein, External Approach (ICD-10-PCS; 2016-10-22)
DX: N17.0 Acute kidney failure with tubular necrosis (principal); K85.90 Acute pancreatitis without necrosis or infection, unspecified; E87.2 Acidosis; R64 Cachexia; I12.0 Hypertensive chronic kidney disease with stage 5 chronic kidney disease or end stage renal disease; D62 Acute posthemorrhagic anemia; N39.0 Urinary tract infection, site not specified; K92.2 Gastrointestinal hemorrhage, unspecified; K86.1 Other chronic pancreatitis; N18.6 End stage renal disease; E87.5 Hyperkalemia; B19.20 Unspecified viral hepatitis C without hepatic coma; B95.2 Enterococcus as the cause of diseases classified elsewhere; D50.0 Iron deficiency anemia secondary to blood loss (chronic); D63.1 Anemia in chronic kidney disease; F10.20 Alcohol dependence, uncomplicated; F14.10 Cocaine abuse, uncomplicated; F17.200 Nicotine dependence, unspecified, uncomplicated; Z91.19 Patient's noncompliance with other medical treatment and regimen; Z89.512 Acquired absence of left leg below knee; K82.8 Other specified diseases of gallbladder; K40.20 Bilateral inguinal hernia, without obstruction or gangrene, not specified as recurrent; Z81.1 Family history of alcohol abuse and dependence
CPT/HCPCS: 36415; 36558; 71010; 74176; 76937; 77001; 80048; 80053; 80074; 80306; 81001; 82150; 82272; 82550; 82553; 82728; 83036; 83540; 83550; 83605; 83690; 84100; 84484; 85025; 85027; 86850; 86900; 86901; 86920; 87077; 87086; 87186; 90935; 93005; 96365; 96372; 96375; 99291

== ENCOUNTER 2016-11-24 00:53 | Inpatient (IN) | payer MEDICARE ==
[2016-11-24] MEDS ORDERED: KETOROLAC 30 MG/ML 1 ML VIAL IVP STA (01:37)
[2016-11-24] MEDS ORDERED: ORPHENADRINE 30 MG/ML 2 ML VIAL IM STA (01:37)
--- NOTE | 2016-11-24 02:39 | XR ---
EXAM: XR Lumbar Spine, 2 or 3 Views CLINICAL HISTORY: Pain. TECHNIQUE: Frontal and lateral views of the lumbar spine. COMPARISON: Lumbar spine radiograph dated 09/26/16. FINDINGS: Vertebrae: Minimal curvature of the lumbar spine. No radiographic evidence of acute fracture or significant malalignment. Lower lumbar spine facet arthropathy. Disc spaces: There is again advanced disc height loss with endplate sclerosis/irregularity at L2-3 and L5-S1. Soft tissues: Distal aortic atherosclerotic calcifications. IMPRESSION: 1. No radiographic evidence of acute fracture or significant malalignment. 2. There is again advanced disc height loss with endplate sclerosis/irregularity at L2-3 and L5-S1, which is most likely degenerative. 3. If there is clinical suspicion for infection or other process, further evaluation with contrast-enhanced MRI may be considered.
[2016-11-24] MEDS ORDERED: IBUPROFEN 600 MG TAB PO STA (03:00)
[2016-11-24] MEDS ORDERED: HYDROcodone/APAP 5-325MG 1 EACH TAB PO STA (03:01)
[2016-11-24 04:58] LABS: Basophils % (A) 0 %; CH 32.1; CHCM 33.2; Eosinophils # (A) 0.3 k/uL (0-0.7); Eosinophils % (A) 3 %; HDW 3.06; HGB 9.3 gm/dL (13.0-17.5); Luc # (Auto) 0.21; Luc % (Auto) 3; Lymphocytes # (A) 1.4 k/uL (1.0-4.8); Lymphocytes % (A) 17 %; MCH 32.5 pg (25.0-35.0); MCHC 33.3 g/dL (31.0-37.0); MCV 97.5 fL (80.0-100.0); Monocytes # (A) 0.3 k/uL (0-1.0); Monocytes % (A) 4 %; Neutrophils % (A) 73 %; RBC 2.87 m/uL (4.30-5.90); RDW 14.8 % (11.5-15.5); WBC 8.2 k/uL (3.8-10.6); WBC (Perox) 7.54
[2016-11-24] MEDS ORDERED: METOPROLOL TARTRATE 25 MG TAB PO STA (06:00)
[2016-11-24 06:23] LABS: Calcium 8.7 mg/dL (8.4-10.2); Potassium 6.1 mmol/L (3.5-5.1); Total Bilirubin 0.7 mg/dL (0.2-1.3); Total Protein 7.2 g/dL (6.3-8.2)
[2016-11-24] MEDS ORDERED: SODIUM CHLORIDE 0.9% 2,000 ML IV ONE (07:16)
[2016-11-24] MEDS ORDERED: SODIUM BICARB 8.4% 50 ML SYR (1 MEQ/ML) IV STA (07:16)
[2016-11-24] MEDS ORDERED: CALCIUM GLUCONATE 1,000 MG in SODIUM CHLORIDE 0.9% 100 ML IVPB ONE (07:16)
[2016-11-24] MEDS ORDERED: DEXTROSE 50%-WATER 50 ML SYRINGE IVP STA (07:16)
[2016-11-24] MEDS ORDERED: INSULIN REGULAR 100 UNIT/ML VIAL IV STA (07:16)
[2016-11-24] MEDS ORDERED: MORPHINE SULFATE 4 MG/ML SYRINGE IV STA (07:17)
[2016-11-24] MEDS ORDERED: ACETAMINOPHEN TAB 325 MG TAB PO PRN (07:20)
[2016-11-24] MEDS ORDERED: MORPHINE SULFATE 4 MG/ML SYRINGE IV PRN (07:20)
[2016-11-24] MEDS ORDERED: NALOXONE 0.4 MG/ML 1 ML VIAL IV PRN (07:20)
[2016-11-24] MEDS ORDERED: SODIUM CHLORIDE 0.9% 1,000 ML IV SCH (07:30)
--- NOTE | 2016-11-24 07:51 | ED ---
Back Pain HPI - General Chief Complaint: Back Pain/Injury Stated Complaint: lower back pain Time Seen by Provider: 11/24/16 00:59 Source: patient, EMS - History of Present Illness Initial Comments: This patient is a 66-year-old man who presents to be evaluated for low back pain that is going across his bilateral low back perhaps worse on the right. He denies trauma, and states that this is been going on for a few days but getting worse. He denies any element of abdominal pain. He denies any weakness or numbness of the extremities. No change in bladder or bowel function. MD Complaint: back pain -: days(s) Similar Symptoms Previously: Yes Place: home Radiation: none Severity: severe Quality: sharp, aching Consistency: constant Improves With: none Worsens With: movement Associated Symptoms: denies other symptoms - Related Data Home Medications Medication Instructions Recorded Confirmed Hydrocodone/Acetaminophen [[place] 1 tab PO Q8HR PRN 11/24/16 11/24/16 10-325 Tablet] Allergies Allergy/AdvReac Type Severity Reaction Status Date / Time aspirin AdvReac Nausea & Verified 11/24/16 00:57 Vomiting Review of Systems ROS Statement: Those systems with pertinent positive or pertinent negative responses have been documented in the HPI. ROS Other: All systems not noted in ROS Statement are negative. Constitutional: Denies: fever, chills, weakness Respiratory: Denies: cough, dyspnea Cardiovascular: Denies: chest pain, palpitations, edema, syncope Gastrointestinal: Denies: abdominal pain, vomiting, diarrhea, constipation, melena, hematochezia Genitourinary: Denies: dysuria, hematuria Musculoskeletal: Denies: back pain Skin: Denies: rash Neurological: Denies: weakness, numbness, paresthesias Past Medical History Past Medical History: Hyperlipidemia, Renal Disease Additional Past Medical History / Comment(s): "spot on liver" History of Any Multi-Drug Resistant Organisms: None Reported Past Surgical History: Orthopedic Surgery Additional Past Surgical History / Comment(s): 07/01/16 NICO. Past Anesthesia/Blood Transfusion Reactions: No Reported Reaction Past Psychological History: Bipolar, Depression Additional Psychological History / Comment(s): Pt resides with one of his brothers. He does not drive. Smoking Status: Current every day smoker Past Alcohol Use History: Occasional Additional Past Alcohol Use History / Comment(s): Pt started smoking around age 7 or 8 yrs. He drinks on a daily basis-brother states he is an alcoholic. Past Drug Use History: None Reported Additional Drug Use History / Comment(s): Pt states he uses crack cocaine approx 2 weeks ago - Past Family History Father Additional Family Medical History / Comment(s): Father was an alcoholic and of this at the age of 44yrs. Mother Family Medical History: No Reported History Additional Family Medical History / Comment(s): Mother is 88yrs old and healthy. Brother(s) Family Medical History: Diabetes Mellitus General Exam General appearance: alert, in no apparent distress Head exam: Present: atraumatic, normocephalic, normal inspection Eye exam: Present: normal appearance. Absent: scleral icterus, conjunctival injection Neck exam: Present: normal inspection, full ROM Respiratory exam: Present: normal lung sounds bilaterally. Absent: respiratory distress, wheezes, rales, rhonchi, stridor Cardiovascular Exam: Present: regular rate, normal rhythm, normal heart sounds GI/Abdominal exam: Present: soft, normal bowel sounds. Absent: distended, tenderness, guarding, rebound, mass, pulsatile mass, hernia Extremities exam: Present: normal inspection, normal capillary refill. Absent: pedal edema, calf tenderness Back exam: Present: normal inspection, paraspinal tenderness, vertebral tenderness. Absent: CVA tenderness (R), CVA tenderness (L) Neurological exam: Present: alert, reflexes normal. Absent: motor sensory deficit Skin exam: Present: warm, dry, intact, normal color. Absent: rash Course Vital Signs 11/24/16 11/24/16 11/24/16 00:54 02:51 05:06 Temperature 97.4 F L Pulse Rate 95 92 82 Respiratory 18 18 18 Rate Blood Pressure 174/93 183/100 191/100 O2 Sat by Pulse 99 100 99 Oximetry 11/24/16 11/24/16 06:10 09:05 Temperature 97.9 F Pulse Rate 87 66 Respiratory 18 18 Rate Blood Pressure 187/110 166/89 O2 Sat by Pulse 99 99 Oximetry Procedures - Central Line Placement Right Femoral Consent Obtained: written consent Time Out Performed: Yes MD Prep: mask, gown, gloves Central Line Prep: Povidone-Iodine 1% Local Anesthesia Used: Lidocaine 1% Central Line Lumen Inserted: triple Central Line Position: good blood return, all ports aspirated, flushed, capped, sutured in place with 2-0 silk Dressing Applied: Tegaderm Patient Tolerated Procedure: well, no complications Complications: none Additional Comments: Indication is no vascular access by peripheral IV, after multiple attempts by multiple nurses. Medical Decision Making - Medical Decision Making Patient is 66-year-old man presenting with low back pain, who is found to have acute renal failure. Case discussed with Dr. Matthews, who is covering for Dr. Romano. Patient be admitted with nephrology consultation. - Lab Data Result diagrams: 11/25/16 07:24 11/24/16 17:20 Lab Results 11/24/16 11/24/16 Range/Units 04:41 05:34 WBC 8.2 (3.8-10.6) k/uL RBC 2.87 L (4.30-5.90) m/uL Hgb 9.3 L (13.0-17.5) gm/dL Hct 28.0 L (39.0-53.0) % MCV 97.5 (80.0-100.0) fL MCH 32.5 (25.0-35.0) pg MCHC 33.3 (31.0-37.0) g/dL RDW 14.8 (11.5-15.5) % Plt Count 139 L (150-450) k/uL Neutrophils % 73 % Lymphocytes % 17 % Monocytes % 4 % Eosinophils % 3 % Basophils % 0 % Neutrophils # 6.0 (1.3-7.7) k/uL Lymphocytes # 1.4 (1.0-4.8) k/uL Monocytes # 0.3 (0-1.0) k/uL Eosinophils # 0.3 (0-0.7) k/uL Basophils # 0.0 (0-0.2) k/uL Sodium 140 (137-145) mmol/L Potassium 6.1 H (3.5-5.1) mmol/L Chloride 115 H (98-107) mmol/L Carbon Dioxide 9 L* (22-30) mmol/L Anion Gap 16 mmol/L BUN 123 H* (9-20) mg/dL Creatinine 12.79 H* (0.66-1.25) mg/dL Est GFR (MDRD) Af Amer 5 (>60 ml/min/1.73 sqM) Est GFR (MDRD) Non-Af 4 (>60 ml/min/1.73 sqM) Glucose 81 (74-99) mg/dL Calcium 8.7 (8.4-10.2) mg/dL Total Bilirubin 0.7 (0.2-1.3) mg/dL AST 49 (17-59) U/L ALT 51 (21-72) U/L Alkaline Phosphatase 142 H (38-126) U/L Total Protein 7.2 (6.3-8.2) g/dL Albumin 3.6 (3.5-5.0) g/dL Amylase 236 H (30-110) U/L Lipase 1321 H (23-300) U/L Critical Care Time Critical Care Time: Yes (40 minutes) Disposition Clinical Impression: Low back pain, Acute renal failure, Hypertension, Hyperkalemia Disposition: ADMITTED IP TO THIS HOSP
--- NOTE | 2016-11-24 08:49 | US ---
EXAMINATION TYPE: US kidneys/renal and bladder DATE OF EXAM: 11/24/2016 COMPARISON: CT abdomen and pelvis October 15 2016, US kidneys June 27, 2016 CLINICAL HISTORY: Pain in back. EXAM MEASUREMENTS: Right Kidney: 10.2 x 3.9 x 3.7 cm Left Kidney: 10.5 x 4.8 x 3.5 cm Right Kidney: Decreased renal cortex. Difficult to evaluate. Left Kidney: Decreased renal cortex. Difficult to evaluate. Bladder: ? debris within. Bilateral Jets seen: Yes There is no evidence for hydronephrosis at this point in time. No nephrolithiasis is seen. No trina s are identified. The urinary bladder is fairly well anechoic. No suspicious intraluminal mass or w all thickening is seen to me on images saved. Bilateral ureteral jets are seen. IMPRESSION: No hydronephrosis is seen bilaterally. There is increased cortical echogenicity redemonstrated bilate rally, similar to prior ultrasound, suspect product of chronic medical renal disease.
[2016-11-24] MEDS ORDERED: FAMOTIDINE 20 MG TAB PO SCH (09:00)
--- NOTE | 2016-11-24 09:07 | CT ---
EXAMINATION TYPE: CT abdomen pelvis wo con DATE OF EXAM: 11/24/2016 COMPARISON: Previous study dated 10/15/2016 HISTORY: Patient complains of low back pain. CT DLP: 280 mGycm Automated exposure control for dose reduction was used. FINDINGS: There is some dependent atelectasis within the lung bases. The heart is not enlarged. There is coronary artery and other vascular calcifications. Within the abdomen, the liver and spleen are normal. The gallbladder is unremarkable. Both adrenal glands are normal. There is no evidence of hydronephrosis or nephrolithiasis. There are coarse calcifications within the head of the pancreas, unchanged from previous. There is mi nimal peripancreatic fat stranding adjacent to the head of the pancreas. This is unchanged from previ ous. There is no evidence of pseudocyst formation. The pancreatic duct is not enlarged. There is no significant retroperitoneal, iliac or inguinal adenopathy. The prostate gland is enlarged. The bladder is unremarkable. There are scattered diverticula throughout the left side of the colon. I do not see radiographic evid ence of diverticulitis. The appendix is unremarkable. Small bowel loops are normal. There is a direct inguinal hernia on the right. The bladder is peaking into this. There is endplate sclerosis at L2-3 and L5-S1. There is endplate destructive change at L2-3. There is endplate irregularity at L5-S1. There is hypertrophic spondylosis throughout the lumbar spine. IMPRESSION: 1. CHRONIC CALCIFIC PANCREATITIS. I COULD NOT EXCLUDE MILD ACUTE PANCREATITIS. 2. UNCOMPLICATED DIVERTICULOSIS OF THE LEFT SIDE OF THE COLON. 3. DIRECT INGUINAL HERNIA ON THE RIGHT. THE ANTEROLATERAL ASPECT OF THE BLADDER IS PEAKING INTO THIS. 4. DEGENERATIVE CHANGE WITHIN THE SPINE. PLEASE CORRELATE CLINICALLY TO EXCLUDE DISCITIS AT L2-3 AND POTENTIALLY L5-S1.
[2016-11-24 09:34] LABS: Appearance,Urine Cloudy (Clear); Bacteria,Urine Moderate /hpf; Bilirubin,Urine Negative (Negative); Glucose,Urine (UA) Trace (Negative); Ketones,Urine Negative (Negative); Leukocyte Esterase,Urine Small (Negative); Nitrite,Urine Negative (Negative); Particle Count 4550; Protein,Urine 2+ (Negative); RBC,Urine 1 /hpf (0-5); Specific Gravity,Urine 1.009 (1.001-1.035); Squamous Epithelial Cell,Urine 1 /hpf (0-4); UA Billing (MACRO vs. MICRO) MICRO; Urobilinogen,Urine <2.0 mg/dL (<2.0); WBC,Urine 14 /hpf (0-5)
[2016-11-24] MEDS ORDERED: LORazepam 2 MG/ML SYRINGE IV PRN ×3 (10:24)
[2016-11-24] MEDS ORDERED: THIAMINE 100 MG/ML 2 ML VIAL IM STA (10:29)
[2016-11-24 11:03] LABS: Potassium,Urine Random 20.5 mmol/L
[2016-11-24 11:08] LABS: Creatinine,Urine Random 79.3 mg/dL
[2016-11-24] MEDS: DEXTROSE 5% IN WATER 1,000 ML with SODIUM ACETATE 100 MEQ IV SCH ×2 (11:11→23:35)
[2016-11-24] MEDS: THIAMINE 100 MG TAB PO SCH (11:11)
[2016-11-24] MEDS: SODIUM CHLORIDE 0.9% 1,000 ML IV SCH (11:54)
--- NOTE | 2016-11-24 13:43 | P.HPIM ---
History of Present Illness H&P Date: 11/24/16 Chief Complaint: Lower back pain 66-year-old Afro-[place] male who presented on the day of admission to the emergency room with a chief complaint of developing lower back pain. Patient denies any trauma. Stated it been ongoing for several days. Patient denied any component of abdominal pain. Patient denied a change in bowel or bladder. Patient states he only drinks a couple beers every couple days. States he did use crack cocaine 2 weeks prior. She was seen in the emergency room the creatinine was 12.9. Potassium 6.1. Lipase elevated 1321. Computed tomography scan of the abdomen and the pelvis without contrast obtained in the emergency room in summary showed no evidence of diverticulitis scattered diverticuli throughout the left side of the colon. Ultrasound of the kidneys showed no hydronephrosis bilaterally. The spinal x-rays of the lumbar spine advanced disc height loss most likely degenerative. Currently patient is to be seen by nephrology service. Patient states he is willing to undergo dialysis this admission Patient was just discharged on October 22 at which time the patient was hospitalized and treated for severe pancreatitis cocaine abuse with severe rhabdomyolysis, with renal failure patient at that admission was dialyzed was given a couple treatments of dialysis and then the patient refused any other dialysis. Even though he understood the risk of dying. Patient stated he did not want to have dialysis at that time. Subsequently the patient was discharged on October 22 Review of Systems Essentially unremarkable except as mentioned in the present illness Past Medical History Past Medical History: Hyperlipidemia, Hypertension, Liver Disease, Renal Disease Additional Past Medical History / Comment(s): Pt admitted 10/16/16 with pancreatitis, cocaine abuse, rhabdo and severe renal failure-had dialysis. Other HX: Chronic kidney disease, anemia, hyperkalemia, pancreatitis, rhabdomylosis, hepatitis C, "spot on liver" History of Any Multi-Drug Resistant Organisms: None Reported Past Surgical History: Orthopedic Surgery Additional Past Surgical History / Comment(s): 07/01/16 NICO, jaw surgery. Past Anesthesia/Blood Transfusion Reactions: No Reported Reaction Past Psychological History: Bipolar, Depression Additional Psychological History / Comment(s): Pt resides with one of his brothers. He states he drives. He states he is independent. He states his mental health is stable and that he is one no meds for this. Smoking Status: Current every day smoker Past Alcohol Use History: Occasional Additional Past Alcohol Use History / Comment(s): Pt started smoking around age 7 or 8 yrs. He is a ppd smoker. He states drinks on occasion only. Past Drug Use History: Cocaine, Heroin Additional Drug Use History / Comment(s): Pt states he uses crack cocaine with last time being approx 1 week ago. He has hx of using heroin but none for 20 yrs. - Past Family History Father Additional Family Medical History / Comment(s): Father was an alcoholic and of this at the age of 44yrs. Mother Family Medical History: No Reported History Additional Family Medical History / Comment(s): Mother is 89 yrs old and healthy. Brother(s) Family Medical History: Diabetes Mellitus Medications and Allergies Home Medications Medication Instructions Recorded Confirmed Type Hydrocodone/Acetaminophen [[place] 1 tab PO Q8HR PRN 11/24/16 11/24/16 History 10-325 Tablet] Allergies Allergy/AdvReac Type Severity Reaction Status Date / Time aspirin AdvReac Nausea & Verified 11/24/16 00:57 Vomiting Physical Exam Vitals: Vital Signs Temp Pulse Pulse Resp BP BP Pulse Ox 11/24/16 11:55 96.5 F L 82 16 136/89 99 11/24/16 09:05 97.9 F 66 18 166/89 99 11/24/16 06:10 87 18 187/110 99 11/24/16 05:06 82 18 191/100 99 11/24/16 02:51 92 18 183/100 100 11/24/16 00:54 97.4 F L 95 18 174/93 99 Intake and Output 11/23/16 11/24/16 11/24/16 22:59 06:59 14:59 Other: Weight 63.503 kg GENERAL APPEARANCE: 66-year-old Afro-[place] male chief complaint lower back pain patient is alert, oriented, in no acute distress. VITAL SIGNS: Reviewed HEENT: Head is normocephalic and atraumatic. Pupils are equal and reactive. The nares are patent. Oropharynx is clear without lesions. NECK: Supple without lymphadenopathy. Traches midline. HEART: S1, S2. Regular rate and rhythm. No murmur noted denying chest pain LUNGS: No crackles or wheezes are heard. Sats on room air 99% no cough noted ABDOMEN: Soft, nontender, nondistended with good bowel sounds. No peritoneal signs. No palpable organomegaly or masses. Currently is denying any abdominal pain no frequent stooling states is hungry reports no nausea no vomiting EXTREMITIES: Normal skin color and turgor. No cyanosis, rash, ulceration, clubbing or edema. Radial pedal pulses are 2/4 bilaterally. Results CBC & Chem 7: 11/24/16 04:41 11/24/16 05:34 Labs: Abnormal Lab Results - Last 24 Hours (Table) 11/24/16 11/24/16 11/24/16 Range/Units 04:41 05:34 09:00 RBC 2.87 L (4.30-5.90) m/uL Hgb 9.3 L (13.0-17.5) gm/dL Hct 28.0 L (39.0-53.0) % Plt Count 139 L (150-450) k/uL Potassium 6.1 H (3.5-5.1) mmol/L Chloride 115 H (98-107) mmol/L Carbon Dioxide 9 L* (22-30) mmol/L BUN 123 H* (9-20) mg/dL Creatinine 12.79 H* (0.66-1.25) mg/dL Alkaline Phosphatase 142 H (38-126) U/L Amylase 236 H (30-110) U/L Lipase 1321 H (23-300) U/L Urine Protein 2+ H (Negative) Urine Glucose (UA) Trace H (Negative) Urine Blood Small H (Negative) Ur Leukocyte Esterase Small H (Negative) Urine WBC 14 H (0-5) /hpf Urine Bacteria Moderate H (None) /hpf Thrombosis Risk Factor Assmnt - Choose All That Apply Any of the Below Risk Factors Present?: Yes Other Risk Factors: Yes Each Risk Factor Represents 2 Points: Age 61-74 years Other congenital or acquired thrombophilia - If yes, enter type in comment: No Thrombosis Risk Factor Assessment Total Risk Factor Score: 2 Thrombosis Risk Factor Assessment Level: Low Risk Assessment and Plan Plan: Impression Present on admission lower back pain suspect due to acute renal failure End-stage renal disease stage IV Present on admission elevated lipase abdominal pain likely due to chronic relapsing pancreatitis likely idiopathic although alcohol related etiology could be a possibility Present on admission anemia of chronic illness hemoglobin stable History of cocaine abuse used 2 weeks prior Active tobacco abuse every day smoker 1 pack a day greater than a 40 year history Present on admission hyperkalemia suspect due to acute renal failure Acute on chronic renal failure stage IV Present on admission elevated lipase acute pancreatitis multifactorial suspect a component of daily alcohol consumption with acute renal failure Issues of medical noncompliant with follow-up and medication Present on admission hypertension urgency History of alcoholism Plan Full liquid diet with IV hydration Continue recommendations by nephrology patient has agreed for hemodialysis to be initiated Repeat labs in the morning Pain control Resume home meds as appropriate Monitor labs keep electrolytes in a therapeutic range DVT and GI prophylaxis Further recommendations pending The above dictated assessment and findings were discussed with dr olson Impression and the plan of care have been dictated as directed. Taina Urbina nurse practitioner acting as a scribe for dr olson
[2016-11-24] MEDS: HEPARIN SODIUM,PORCINE 5,000 UNIT/ML 1 ML VIAL SQ SCH ×2 (15:12→23:34)
[2016-11-24] MEDS: MORPHINE SULFATE 2 MG/ML SYRINGE IV PRN ×2 (15:12→21:14)
[2016-11-24 18:28] LABS: Calcium 7.7 mg/dL (8.4-10.2); Potassium 4.5 mmol/L (3.5-5.1); Total Bilirubin 0.4 mg/dL (0.2-1.3); Total Protein 6.3 g/dL (6.3-8.2)
--- NOTE | 2016-11-24 21:20 | CONS ---
DATE OF CONSULTATION: REASON FOR CONSULTATION: Renal failure. HISTORY OF PRESENT ILLNESS: Patient is a 66-year-old male with a history of chronic kidney disease stage V with patient previously having refused dialysis. He was actually started on dialysis and had 2 to 3 treatments as inpatient and then decided that he did not want to pursue renal replacement therapy. He went home, now he is admitted again with severe weakness and advanced renal failure, severe metabolic acidosis and hyperkalemia I asked him today and he says that he is very close to deciding to start dialysis and he has now been getting significantly weak and short of breath. There is a previous history of drug abuse as well; therefore, they had been concerned about patient's noncompliance, particularly with Perm-A-Cath. Patient did admit to decreased oral intake. He denies any significant nausea or vomiting at this time. No fever, chills, chest pains. PAST MEDICAL HISTORY: Chronic kidney disease stage V. Hyperlipidemia. Hepatitis C, history of pancreatitis, metabolic acidosis. PAST SURGICAL HISTORY: NICO, orthopedic surgery. SOCIAL HISTORY: Positive for smoking, history of cocaine abuse. Patient consumes alcohol daily. No history of IV drug abuse that is reported. Medications at home included: [place]. ALLERGIES INCLUDE ASPIRIN. On examination, the patient is currently comfortable. He is not in any acute distress. Blood pressure is 166/89, heart rate 66 per minute. He is afebrile. Examination of the heart S1 and S2. Examination of the lungs: Bilateral breath sounds are heard. Decreased breath sounds in bases. ABDOMEN: Soft, nontender. Examination of lower extremities shows no significant edema. [employer] exam is grossly intact. Patient is moving all 4 extremities. Labs show sodium 140, potassium 6.1, chloride 115, BUN 123, serum creatinine 12.79. Hemoglobin 9.3 g/dL, amylase 236, lipase 1321. ASSESSMENT: 1. End-stage renal disease. Patient has been at chronic kidney disease stage V for about 3 to 4 years now. I asked him again regarding renal replacement therapy and he states that he is ready to start dialysis; however, I have advised him that he will need to be compliant and come for treatment as outpatient 3 times a week with each treatment about 4 hours. We did start him on dialysis on his last admission and this was discontinued after patient decided he did not want to continue renal replacement therapy. Therefore, at this time, I warned him to be completely sure of his decision before starting renal replacement therapy. 2. Severe metabolic acidosis, will start IV bicarb. 3. Hyperkalemia associated with advanced renal failure. 4. Anemia of chronic disease. 5. History of hepatitis C. 6. History of pancreatitis with lipase currently elevated at 1321. PLAN: Start bicarb drip. Repeat labs in a.m. May need to make sure patient is ready to start renal replacement therapy before the Perm-A-Cath is placed again. Thank you for this consultation. We will continue to follow the patient with you during his hospitalization.
[2016-11-25] MEDS: MORPHINE SULFATE 2 MG/ML SYRINGE IV PRN ×2 (03:11→09:45)
[2016-11-25] MEDS: SODIUM CHLORIDE 0.9% 1,000 ML IV SCH (06:18)
[2016-11-25 08:09] LABS: Basophils % (A) 0 %; CH 31.9; CHCM 32.5; Eosinophils # (A) 0.2 k/uL (0-0.7); Eosinophils % (A) 5 %; HCT 22.6 % (39.0-53.0); HDW 3.06; Luc # (Auto) 0.07; Luc % (Auto) 1; Lymphocytes % (A) 20 %; MCH 31.9 pg (25.0-35.0); MCHC 32.2 g/dL (31.0-37.0); Macrocytosis Slight; Mean Platelet Volume 7.3; Monocytes # (A) 0.2 k/uL (0-1.0); Monocytes % (A) 4 %; Neutrophils # (A) 3.3 k/uL (1.3-7.7); Neutrophils % (A) 69 %; RBC 2.29 m/uL (4.30-5.90); RDW 14.9 % (11.5-15.5); WBC 4.8 k/uL (3.8-10.6); WBC (Perox) 5.04
[2016-11-25 08:14] LABS: HGB 7.3 gm/dL (13.0-17.5)
[2016-11-25] MEDS: HEPARIN SODIUM,PORCINE 5,000 UNIT/ML 1 ML VIAL SQ SCH ×3 (08:41→23:43)
[2016-11-25] MEDS: FAMOTIDINE 20 MG TAB PO SCH (08:41)
[2016-11-25] MEDS: HYDROcodone/APAP 5-325MG 1 EACH TAB PO PRN ×4 (09:44→23:17)
[2016-11-25] MEDS ORDERED: MORPHINE SULFATE 2 MG/ML SYRINGE IV PRN (11:19)
[2016-11-25] MEDS: THIAMINE 100 MG TAB PO SCH ×2 (11:45→16:39)
[2016-11-25 11:47] LABS: Calcium 7.3 mg/dL (8.4-10.2); Potassium 4.4 mmol/L (3.5-5.1); Total Bilirubin 0.4 mg/dL (0.2-1.3); Total Protein 5.9 g/dL (6.3-8.2)
--- NOTE | 2016-11-25 13:31 | P.PN ---
Subjective A 66-year-old male being seen on rounds this morning sitting up in bed. Did discuss with the patient the plan of care. Patient does have chronic kidney disease stage V. Previously last admission patient had refused dialysis. Patient at that admission was actually started on dialysis had 2-3 treatments as an inpatient and then decided that he did not want to pursue any renal replacement therapy. Patient was adamant that he be discharged home at that admission. The permacath was removed patient was discharged. Discussed with the patient the need for hemodialysis no need for compliance. Patient states he understands and he is willing to pursue renal replacement therapy. Patient does have a history of drug abuse last admission patient did use per patient report crack cocaine labs reviewed this morning the creatinine is down to 9.5 and the potassium has been corrected at 4.4. Nephrology participating in the plan of care. The hemoglobin is 7.3. Lipase is currently 800 down from 1300 Objective - Vital Signs Vital signs: Vital Signs Temp 97.6 F 11/25/16 08:35 Pulse 81 11/25/16 08:35 Resp 18 11/25/16 08:35 BP 166/92 11/25/16 08:35 Pulse Ox 100 11/25/16 08:35 Intake & Output 11/24/16 11/25/16 11/25/16 18:59 06:59 18:59 Intake Total 2075 1125 360 Output Total 400 450 700 Balance 1675 675 -340 Weight 52.5 kg 52.5 kg Intake: IV 1125 Dextrose 5% in Water 1, 675 000 ml @ 75 mls/hr IV . Q14H BRITTON with Sodium Acetate 100 meq Rx#: [id number] Sodium Chloride 0.9% 1, 450 000 ml @ 50 mls/hr IV . Q20H BRITTON Rx#:[id number] Intake, IV Titration 1075 Amount Dextrose 5% in Water 1, 525 000 ml @ 75 mls/hr IV . Q14H BRITTON with Sodium Acetate 100 meq Rx#: [id number] Sodium Chloride 0.9% 1, 200 000 ml @ 200 mls/hr IV . Q5H BRITTON Rx#:[id number] Sodium Chloride 0.9% 1, 350 000 ml @ 50 mls/hr IV . Q20H BRITTON Rx#:[id number] Oral 1000 360 Output: Urine 400 450 700 Other: Voiding Method Urinal Urinal # Voids 1 0 2 - Exam Physical exam 66-year-old Afro-[place] male sitting up in bed does not appear in any acute distress states he's hungry and wants his diet advanced Lungs essentially clear with adequate air movement Heart S1-S2 audible and regular monitor sinus occasional PVC no murmur noted Abdomen flat nontender no reports of nausea vomiting no stooling Extremity no edema noted - Labs CBC & Chem 7: 11/25/16 07:24 11/25/16 06:30 Labs: Abnormal Lab Results - Last 24 Hours (Table) 11/24/16 11/25/16 11/25/16 Range/Units 17:20 06:30 06:30 RBC (4.30-5.90) m/uL Hgb (13.0-17.5) gm/dL Hct (39.0-53.0) % Chloride 112 H 113 H (98-107) mmol/L Carbon Dioxide 12 L 12 L (22-30) mmol/L BUN 103 H* 93 H* (9-20) mg/dL Creatinine 10.76 H* 9.59 H* (0.66-1.25) mg/dL Glucose 108 H (74-99) mg/dL Calcium 7.7 L 7.3 L (8.4-10.2) mg/dL Alkaline Phosphatase 147 H 162 H (38-126) U/L Total Protein 5.9 L (6.3-8.2) g/dL Albumin 3.1 L 2.8 L (3.5-5.0) g/dL Lipase 800 H (23-300) U/L 11/25/16 Range/Units 07:24 RBC 2.29 L (4.30-5.90) m/uL Hgb 7.3 L D (13.0-17.5) gm/dL Hct 22.6 L (39.0-53.0) % Chloride (98-107) mmol/L Carbon Dioxide (22-30) mmol/L BUN (9-20) mg/dL Creatinine (0.66-1.25) mg/dL Glucose (74-99) mg/dL Calcium (8.4-10.2) mg/dL Alkaline Phosphatase (38-126) U/L Total Protein (6.3-8.2) g/dL Albumin (3.5-5.0) g/dL Lipase (23-300) U/L Assessment and Plan Plan: Impression Present on admission lower back pain suspect due to acute renal failure End-stage renal disease stage IV Present on admission elevated lipase abdominal pain likely due to chronic relapsing pancreatitis likely idiopathic although alcohol related etiology could be a possibility Present on admission anemia of chronic illness hemoglobin stable History of cocaine abuse used 2 weeks prior Active tobacco abuse every day smoker 1 pack a day greater than a 40 year history Present on admission hyperkalemia suspect due to acute renal failure improving Acute on chronic renal failure stage IV Present on admission elevated lipase acute pancreatitis multifactorial suspect a component of daily alcohol consumption with acute renal failure Issues of medical noncompliant with follow-up and medication Present on admission hypertension urgency History of alcoholism Plan We'll give 1 dose of IV iron Full liquid diet with IV hydration Continue recommendations by nephrology patient has agreed for hemodialysis to be initiated Repeat labs in the morning Pain control Resume home meds as appropriate Monitor labs keep electrolytes in a therapeutic range DVT and GI prophylaxis Further recommendations pending Will advance diet to a renal diet IV pain medication dilaudid will be stopped and will continue to use [place] for pain control this was discussed with the patient senior online marketing manager and social worker psychiatric to pursue the discharge plan patient agrees for hemodialysis may need subacute rehab or placement will defer to special education case manager and nephrology The above dictated assessment and findings were discussed with dr wesley Vitale and the plan of care have been dictated as directed. Taina Urbina nurse practitioner acting as a scribe for dr olson
[2016-11-25] MEDS ORDERED: SODIUM FERRIC GLUCONAT-SUCROSE 125 MG in SODIUM CHLORIDE 0.9% 100 ML IVPB ONE (14:30)
[2016-11-25] MEDS: DEXTROSE 5% IN WATER 1,000 ML with SODIUM ACETATE 100 MEQ IV SCH (14:59)
[2016-11-25] MEDS: amLODIPine 10 MG TAB PO SCH (19:51)
--- NOTE | 2016-11-25 22:22 | PN ---
Patient is seen for follow-up for end-stage renal disease. Patient was admitted to the hospital with and severe renal failure and metabolic acidosis and hyperkalemia. He is currently maintained on a bicarb drip. He remains acidotic. On previous admission, patient was started on dialysis. He refused to continue treatment and we removed the Perm-A-Cath and patient was discharged. At this time he states that he is ready to start dialysis. I have discussed with him regarding commitment to coming 2 treatments 3 times a week, and he states that the he will be taking the bus and will come in regularly for his treatment. We will need to proceed with vascular surgery consult and dialysis catheter placement. Patient does have a history of IV drug abuse. His pain medications will be held and I will discuss with him again regarding renal replacement therapy before placing the Perm-A-Cath this time. On examination, blood pressure is 176/99, heart rate 67 per minute. He is afebrile. Examination of the heart S1 and S2. Examination of the lungs: Bilateral breath sounds are heard. ABDOMEN: Soft, nontender. Examination of lower extremities shows no significant edema. SQUADRON WORKER exam is grossly intact. Labs show sodium 138, potassium 4.4, BUN 93, serum creatinine 9.59. Hemoglobin 7.3 g/dL. ASSESSMENT: 1. Chronic kidney disease stage V. The patient will, most likely be started again on hemodialysis and he states that he is ready to start renal replacement therapy and he also states that he will be compliant with his outpatient treatments; however, his pain medications will be stopped. His IV pain medication will be stopped and we will discuss again regarding his renal replacement therapy tomorrow. I need to confirm from the patient that he will continue with his dialysis treatments before placing a Perm-A-Cath again. 2. Hyperkalemia associated with advanced renal failure and acidosis, currently improved. 3. Severe metabolic acidosis from renal failure slightly improved today. Patient will be switched to sodium bicarb from sodium acetate. He should be maintained on oral sodium bicarb as well. PLAN: Start oral sodium bicarb and switch sodium acetate to IV bicarb, discontinue IV pain medications and reevaluate decisions regarding renal replacement therapy tomorrow.
[2016-11-25] MEDS: DEXTROSE 5% IN WATER 1,000 ML with SODIUM BICARB (1 MEQ/ML) 150 ML IV SCH (23:43)
[2016-11-26] MEDS: SODIUM CHLORIDE 0.9% 1,000 ML IV SCH (02:05)
[2016-11-26] MEDS: HYDROcodone/APAP 5-325MG 1 EACH TAB PO PRN ×5 (05:35→23:45)
[2016-11-26 06:41] LABS: Basophils % (A) 1 %; CH 32.6; CHCM 34.6; Eosinophils # (A) 0.2 k/uL (0-0.7); Eosinophils % (A) 5 %; HCT 22.7 % (39.0-53.0); HDW 3.24; HGB 7.5 gm/dL (13.0-17.5); Luc # (Auto) 0.15; Luc % (Auto) 3; Lymphocytes # (A) 1.2 k/uL (1.0-4.8); Lymphocytes % (A) 23 %; MCH 31.4 pg (25.0-35.0); MCHC 33.2 g/dL (31.0-37.0); MCV 94.8 fL (80.0-100.0); Mean Platelet Volume 6.6; Monocytes # (A) 0.3 k/uL (0-1.0); Monocytes % (A) 5 %; Neutrophils # (A) 3.4 k/uL (1.3-7.7); Neutrophils % (A) 64 %; RBC 2.39 m/uL (4.30-5.90); RDW 14.8 % (11.5-15.5); WBC 5.2 k/uL (3.8-10.6); WBC (Perox) 5.37
[2016-11-26 06:51] LABS: Calcium 6.6 mg/dL (8.4-10.2); Total Bilirubin 0.4 mg/dL (0.2-1.3); Total Protein 6.1 g/dL (6.3-8.2)
--- NOTE | 2016-11-26 09:15 | P.PN ---
Subjective 66-year-old Afro Cypriot male being seen on rounds this morning sitting up in bed taking a diet. Patient did void 600 mL clear urine. Labs were reviewed. Hemoglobin 7.5. The creatinine is down to 8.1. Potassium 4. The lipase was down to 609. Patient does state that he is willing to undergo dialysis. Patient is able to verbalize an understanding of compliance issues. Patients being followed by nephrology for chronic kidney disease stage IV. Did review dr cook recommendations they will have a discussion with the patient about the importance of compliance most likely will need to be restarted on hemodialysis if the patient is compliant and willing to follow-up in the outpatient setting for hemodialysis. The pain medication IV dilaudid was stopped yesterday patient is taking [place] as needed for pain currently this morning the patient's denying any dizziness lightheadedness shortness of breath chest pain or abdominal pain when questioning Objective - Vital Signs Vital signs: Vital Signs Temp 98.8 F 11/26/16 06:50 Pulse 75 11/26/16 06:50 Resp 18 11/26/16 06:50 BP 153/86 11/26/16 06:50 Pulse Ox 97 11/26/16 06:50 Intake & Output 11/25/16 11/26/16 11/26/16 18:59 06:59 18:59 Intake Total 2660 725 118 Output Total 700 850 Balance 1960 - 118 Weight 52.5 kg 63.7 kg Intake: IV 1000 725 Dextrose 5% in Water 1, 600 375 000 ml @ 75 mls/hr IV . Q14H [facility] with Sodium Acetate 100 meq Rx#: [id number] Sodium Chloride 0.9% 1, 400 350 000 ml @ 50 mls/hr IV . Q20H [facility] Rx#:[id number] Intake, IV Titration 100 Amount Sodium Ferric Gluconat- 100 Sucrose 125 mg In Sodium Chloride 0.9% 100 ml @ 100 mls/hr IVPB ONCE ONE Rx#:[id number] Oral 1560 118 Output: Urine 700 850 Other: Voiding Method Urinal Urinal # Voids 2 1 # Bowel Movements 1 - Exam Physical exam 66-year-old Afro-Cypriot male sitting up in bed denying any dizziness lightheadedness denies chest pain shortness of breath or abdominal pain pleasant and cooperative Lungs essentially clear with adequate air movement Heart S1-S2 audible and regular monitor sinus occasional PVC no murmur noted Abdomen flat nontender no reports of nausea vomiting no stooling Extremity no edema noted - Labs CBC & Chem 7: 11/26/16 06:02 11/26/16 06:02 Labs: Abnormal Lab Results - Last 24 Hours (Table) 11/25/16 11/26/16 11/26/16 Range/Units 06:30 06:02 06:02 RBC 2.39 L (4.30-5.90) m/uL Hgb 7.5 L (13.0-17.5) gm/dL Hct 22.7 L (39.0-53.0) % Chloride 113 H 110 H (98-107) mmol/L Carbon Dioxide 12 L 19 L (22-30) mmol/L BUN 93 H* 82 H* (9-20) mg/dL Creatinine 9.59 H* 8.18 H* (0.66-1.25) mg/dL Glucose 108 H (74-99) mg/dL Calcium 7.3 L 6.6 L (8.4-10.2) mg/dL Alkaline Phosphatase 162 H 219 H (38-126) U/L Total Protein 5.9 L 6.1 L (6.3-8.2) g/dL Albumin 2.8 L 2.9 L (3.5-5.0) g/dL Lipase 609 H (23-300) U/L Assessment and Plan Plan: Impression Present on admission lower back pain suspect due to acute renal failure Chronic kidney disease stage IV Present on admission elevated lipase abdominal pain likely due to chronic relapsing pancreatitis likely idiopathic although alcohol related etiology could be a possibility Present on admission anemia of chronic illness hemoglobin stable History of cocaine abuse used 2 weeks prior Active tobacco abuse every day smoker 1 pack a day greater than a 40 year history Present on admission hyperkalemia suspect due to acute renal failure improving Acute on chronic renal failure stage IV Present on admission elevated lipase acute pancreatitis multifactorial suspect a component of daily alcohol consumption with acute renal failure Issues of medical noncompliant with follow-up and medication Present on admission hypertension urgency History of alcoholism Plan We'll give 1 dose of IV iron Continue recommendations by nephrology patient has agreed for hemodialysis to be initiated Repeat labs in the morning Pain control Resume home meds as appropriate Monitor labs keep electrolytes in a therapeutic range DVT and GI prophylaxis Further recommendations pending Will advance diet to a renal diet biofuels technology development manager and social work nurse to pursue the discharge plan patient agrees for hemodialysis may need subacute rehab or placement will defer to patient case coordinator and nephrology The above dictated assessment and findings were discussed with dr olson Impression and the plan of care have been dictated as directed. Taina Urbina nurse practitioner acting as a scribe for dr olson
[2016-11-26] MEDS ORDERED: SODIUM FERRIC GLUCONAT-SUCROSE 125 MG in SODIUM CHLORIDE 0.9% 100 ML IVPB ONE (09:30)
[2016-11-26] MEDS: FAMOTIDINE 20 MG TAB PO SCH (09:31)
[2016-11-26] MEDS: SODIUM BICARBONATE TAB 650 MG TAB PO SCH ×3 (09:31→21:37)
[2016-11-26] MEDS: HEPARIN SODIUM,PORCINE 5,000 UNIT/ML 1 ML VIAL SQ SCH ×3 (09:31→23:44)
[2016-11-26] MEDS: THIAMINE 100 MG TAB PO SCH ×2 (12:19→15:49)
--- NOTE | 2016-11-26 13:14 | PN ---
Patient is seen for followup for CKD stage V. All his IV medication pain medications were discontinued. He is currently comfortable. I have asked him again and patient states that he wants to proceed with dialysis and states he will be compliant; however, Social Work is being consulted regarding the home situation and whether the patient will be able to come to the dialysis unit. Patient does not drive. He states he will take the bus. I do want to make sure there is availability of public transportation where he resides. He is currently maintained on IV bicarb. His labs have improved and there is no need for hemodialysis urgently. We will; however, need to decide prior to discharge from this admission. On examination, blood pressure is 163/86, heart rate 75 per minute. He is afebrile. Examination of the heart, S1 and S2. Examination of the lungs, bilateral breath sounds are heard. Abdomen is soft, nontender. Examination of the lower extremities showed no evidence of edema. TIMEKEEPER SUPERVISOR exam is grossly intact. Labs show sodium 141, potassium 4.0, BUN 82, serum creatinine 8.1. Hemoglobin 7.5 g/dL. ASSESSMENT: 1. Chronic kidney disease stage V with possible plans of starting renal replacement therapy again on this admission. Previously patient's Perm-A-Cath was removed, prior to discharge as he did not want to continue with renal replacement therapy. This time he states he will be compliant; however, we are awaiting Social Work evaluation to assess compliance as outpatient prior to placing another Perm-A-Cath. 2. Severe metabolic acidosis secondary to renal failure on initial admission, currently improved. 3. Hyperkalemia secondary to advanced renal failure, now resolved. 4. Anemia of chronic disease with no active bleeding noted. Will maintain patient on [place]. PLAN: Start Aranesp. Await Social Work evaluation for home situation to assess compliance with outpatient treatments prior to placement of Perm-A-Cath. Patient also has a history of IV drug abuse. Therefore, we need to be cautious.
[2016-11-26] MEDS ORDERED: DARBEPOETIN ALFA 40 MCG/0.4 ML SYRINGE SQ SCH (14:00)
[2016-11-26] MEDS: DEXTROSE 5% IN WATER 1,000 ML with SODIUM BICARB (1 MEQ/ML) 150 ML IV SCH (14:58)
[2016-11-26] MEDS: amLODIPine 10 MG TAB PO SCH (21:37)
[2016-11-27] MEDS: HEPARIN SODIUM,PORCINE 5,000 UNIT/ML 1 ML VIAL SQ SCH ×4 (00:26→23:55)
[2016-11-27] MEDS: HYDROcodone/APAP 5-325MG 1 EACH TAB PO PRN ×5 (03:48→20:45)
[2016-11-27] MEDS: SODIUM CHLORIDE 0.9% 1,000 ML IV SCH (04:15)
[2016-11-27] MEDS: DEXTROSE 5% IN WATER 1,000 ML with SODIUM BICARB (1 MEQ/ML) 150 ML IV SCH (04:26)
[2016-11-27 06:37] LABS: RDW 14.9 % (11.5-15.5)
[2016-11-27 06:39] LABS: CH 33.1; CHCM 36.7; HDW 3.33; MCH 32.4 pg (25.0-35.0); MCHC 35.7 g/dL (31.0-37.0); MCV 90.8 fL (80.0-100.0); Mean Platelet Volume 7.7; RBC 2.06 m/uL (4.30-5.90); WBC 5.2 k/uL (3.8-10.6); WBC (Perox) 5.39
[2016-11-27 06:49] LABS: HCT 18.7 % (39.0-53.0); HGB 6.7 gm/dL (13.0-17.5)
[2016-11-27 07:13] LABS: Potassium 4.1 mmol/L (3.5-5.1); Total Bilirubin 0.4 mg/dL (0.2-1.3); Total Protein 5.6 g/dL (6.3-8.2)
[2016-11-27 07:19] LABS: Add Differential Manual Differential
[2016-11-27 07:23] LABS: Nucleated Red Blood Cells 0 /100 WBC (0-0); Total Cells Counted 100
[2016-11-27 07:24] LABS: Manual Review Performed
[2016-11-27 07:47] LABS: Calcium 6.3 mg/dL (8.4-10.2)
[2016-11-27] MEDS: FAMOTIDINE 20 MG TAB PO SCH (08:28)
[2016-11-27] MEDS: SODIUM BICARBONATE TAB 650 MG TAB PO SCH ×3 (08:28→21:38)
[2016-11-27 10:08] LABS: Hepatitis B Surface Ag Index 0.07
[2016-11-27] MEDS: CALCIUM CARBONATE 500 MG CHEWABLE PO SCH ×2 (10:12→16:44)
[2016-11-27 10:14] LABS: Hepatitis B Core IgM Index 0.04
[2016-11-27 10:25] LABS: Hepatitis C Virus IgG Ab Reactive (Negative)
[2016-11-27] MEDS: THIAMINE 100 MG TAB PO SCH ×2 (12:19→16:43)
--- NOTE | 2016-11-27 12:47 | P.PN ---
Subjective patient is seen in follow-up for chronic kidney disease stage V. creatinine is down to 6.82 today. He has been voiding well. Hemoglobin is down to 6.7 for which she is receiving blood transfusion currently. Denies chest pain or shortness of breath. No vomiting or diarrhea. Hemodynamically stable. Vital signs are stable. General: The patient appeared well nourished and normally developed. HEENT: Head exam is unremarkable. Neck is without jugular venous distension. LUNGS: Lungs are clear to auscultation and percussion. Breath sounds decreased. HEART: Rate and Rhythm are regular. First and second heart sounds normal. No murmurs, rubs or gallops. ABDOMEN: Abdominal exam reveals normal bowel sounds. Non-tender and non- distended. No evidence of peritonitis. EXTREMITITES: No clubbing, cyanosis, or edema. Objective - Vital Signs Vital signs: Vital Signs Temp 98 F 11/27/16 11:30 Pulse 77 11/27/16 11:30 Resp 20 11/27/16 11:30 BP 123/72 11/27/16 11:30 Pulse Ox 99 11/27/16 08:00 Intake & Output 11/26/16 11/27/16 11/27/16 18:59 06:59 18:59 Intake Total 578 800 0 Output Total 1250 1600 825 Balance -672 -800 -825 Weight 65 kg Intake: IV 800 Sodium Chloride 0.9% 1, 800 000 ml @ 50 mls/hr IV . Q20H [place] Rx#:[id number] Oral 578 Blood Product 0 Rc Cpda-1 Unit 0 [id number] Output: Urine 1250 1600 825 Other: Voiding Method Urinal Urinal Urinal # Voids 1 - Labs CBC & Chem 7: 11/27/16 05:47 11/27/16 05:47 Labs: Abnormal Lab Results - Last 24 Hours (Table) 11/27/16 11/27/16 11/27/16 Range/Units 05:47 05:47 09:06 RBC 2.06 L (4.30-5.90) m/uL Hgb 6.7 L* (13.0-17.5) gm/dL Hct 18.7 L* (39.0-53.0) % BUN 76 H (9-20) mg/dL Creatinine 6.82 H* (0.66-1.25) mg/dL Calcium 6.3 L* (8.4-10.2) mg/dL Alkaline Phosphatase 212 H (38-126) U/L Total Protein 5.6 L (6.3-8.2) g/dL Albumin 2.7 L (3.5-5.0) g/dL Lipase 451 H (23-300) U/L Crossmatch See Detail Assessment and Plan Plan: Assessment: #1. Chronic kidney disease stage V currently not on hemodialysis. #2. Severe metabolic acidosis secondary to chronic kidney disease. Improved. #3. History of IV drug abuse. #4. Acute anemia currently receiving blood transfusion. #5. Hyperkalemia secondary to acute kidney injury and metabolic acidosis. Resolved. #6. Hypocalcemia secondary to hypoalbuminemia as well as acute kidney injury. Plan: Discontinue sodium bicarbonate drip. Start normal saline to be run at 50 mL an hour. 1 g calcium gluconate IV once today. Social work and I both had an extensive discussion with the patient regarding the need to start renal replacement therapy and to be compliant with the treatments. Bus does go to where he lives and he states he will use it to get to the dialysis center. Will get vascular surgery on board for permacath insertion and plan for first treatment of hemodialysis tomorrow.
[2016-11-27] MEDS ORDERED: CALCIUM GLUCONATE 1,000 MG in SODIUM CHLORIDE 0.9% 100 ML IVPB ONE (13:30)
--- NOTE | 2016-11-27 15:31 | P.PN ---
Subjective 58-year-old Guamanian male being seen currently resting in bed. No new events. Patients being followed by nephrology anticipate starting hemodialysis patient is verbalizing that he is agreeing to proceed with the hemodialysis. Did note the recommendations by nephrology service Objective - Vital Signs Vital signs: Vital Signs Temp 98 F 11/27/16 11:30 Pulse 77 11/27/16 11:30 Resp 20 11/27/16 11:30 BP 123/72 11/27/16 11:30 Pulse Ox 99 11/27/16 08:00 Intake & Output 11/26/16 11/27/16 11/27/16 18:59 06:59 18:59 Intake Total 533 378 4399 Output Total 1250 1600 1175 Balance -672 -800 165 Weight 65 kg Intake: IV 800 600 Sodium Chloride 0.9% 1, 800 600 000 ml @ 50 mls/hr IV . Q20H [facility] Rx#:[id number] Intake, IV Titration 740 Amount Calcium Gluconate 1,000 100 mg In Sodium Chloride 0.9 % 100 ml @ 100 mls/hr IVPB ONCE ONE Rx#: [id number] Dextrose 5% in Water 1, 640 000 ml @ 80 mls/hr IV . [id number] [place] with Sodium Bicarb (1 Meq/ml) 150 ml Rx#:[id number] Oral 578 Blood Product 0 Rc Cpda-1 Unit 0 [id number] Output: Urine 1250 1600 1175 Other: Voiding Method Urinal Urinal Urinal # Voids 1 - Exam Physical exam 66-year-old male resting in bed appears in no acute distress Lungs essentially clear adequate air movement on room air Heart S1-S2 audible and regular Abdomen soft nontender reports no nausea vomiting Extremities no edema noted - Labs CBC & Chem 7: 11/27/16 05:47 11/27/16 05:47 Labs: Abnormal Lab Results - Last 24 Hours (Table) 11/27/16 11/27/16 11/27/16 Range/Units 05:47 05:47 09:06 RBC 2.06 L (4.30-5.90) m/uL Hgb 6.7 L* (13.0-17.5) gm/dL Hct 18.7 L* (39.0-53.0) % BUN 76 H (9-20) mg/dL Creatinine 6.82 H* (0.66-1.25) mg/dL Calcium 6.3 L* (8.4-10.2) mg/dL Alkaline Phosphatase 212 H (38-126) U/L Total Protein 5.6 L (6.3-8.2) g/dL Albumin 2.7 L (3.5-5.0) g/dL Lipase 451 H (23-300) U/L Crossmatch See Detail Assessment and Plan Plan: Impression Present on admission lower back pain suspect due to acute renal failure Chronic kidney disease stage IV currently not on hemodialysis Present on admission elevated lipase abdominal pain likely due to chronic relapsing pancreatitis likely idiopathic although alcohol related etiology could be a possibility Present on admission anemia of chronic illness hemoglobin stable History of cocaine abuse used 2 weeks prior Active tobacco abuse every day smoker 1 pack a day greater than a 40 year history Present on admission hyperkalemia suspect due to acute renal failure improving Acute on chronic renal failure stage IV Present on admission elevated lipase acute pancreatitis multifactorial suspect a component of daily alcohol consumption with acute renal failure Issues of medical noncompliant with follow-up and medication Present on admission hypertension urgency History of alcoholism not active Acute anemia currently receiving 1 unit of packed red blood cells Hypocalcemia secondary to hypo-albuminemia with acute renal failure Plan Calcium to be replaced Continue recommendations by nephrology patient has agreed for hemodialysis to be initiated Repeat labs in the morning Pain control Resume home meds as appropriate Monitor labs keep electrolytes in a therapeutic range DVT and GI prophylaxis Further recommendations pending Will advance diet to a renal diet manager business information and social services coordinator to pursue the discharge plan patient agrees for hemodialysis may need subacute rehab or placement will defer to shelter case manager and nephrology The above dictated assessment and findings were discussed with dr wesley Vitale and the plan of care have been dictated as directed. Taina Urbina nurse practitioner acting as a scribe for dr olson
[2016-11-27 16:19] LABS: INR 1.1 (<1.1)
--- NOTE | 2016-11-27 17:26 | P.GSCN ---
History of Present Illness History of present illness: 66 old male, history of chronic renal failure creatinine is 6.82 was consulted for placement of the dialysis catheter Medical history history of hypertension, history of chronic renal failure, history of IV drug use in the past Neck examination neck is supple no bruit appreciated Chest is clear first and second sound normal Abdomen soft nontender brachial radial and femoral pulses are present Plan is placement of the dialysis catheter risk and complication discuss bleeding infection thrombosis Past Medical History Past Medical History: Hyperlipidemia, Renal Disease Additional Past Medical History / Comment(s): "spot on liver" History of Any Multi-Drug Resistant Organisms: None Reported Past Surgical History: Orthopedic Surgery Additional Past Surgical History / Comment(s): 07/01/16 NICO. Past Anesthesia/Blood Transfusion Reactions: No Reported Reaction Past Psychological History: Bipolar, Depression Additional Psychological History / Comment(s): Pt resides with one of his brothers. He does not drive. Smoking Status: Current every day smoker Past Alcohol Use History: Occasional Additional Past Alcohol Use History / Comment(s): Pt started smoking around age 7 or 8 yrs. He drinks on a daily basis-brother states he is an alcoholic. Past Drug Use History: None Reported Additional Drug Use History / Comment(s): Pt states he uses crack cocaine approx 2 weeks ago - Past Family History Father Additional Family Medical History / Comment(s): Father was an alcoholic and of this at the age of 44yrs. Mother Family Medical History: No Reported History Additional Family Medical History / Comment(s): Mother is 88yrs old and healthy. Brother(s) Family Medical History: Diabetes Mellitus Medications and Allergies Home Medications Medication Instructions Recorded Confirmed Type Hydrocodone/Acetaminophen [[place] 1 tab PO Q8HR PRN 11/24/16 11/24/16 History 10-325 Tablet] Allergies Allergy/AdvReac Type Severity Reaction Status Date / Time aspirin AdvReac Nausea & Verified 11/24/16 00:57 Vomiting Surgical - Exam Vital Signs Temp Pulse Resp BP Pulse Ox 97.4 F L 95 18 174/93 99 11/24/16 00:54 11/24/16 00:54 11/24/16 00:54 11/24/16 00:54 11/24/16 00:54 Results - Labs 11/27/16 05:47 11/27/16 05:47 Abnormal Lab Results - Last 24 Hours (Table) 11/27/16 11/27/16 11/27/16 Range/Units 05:47 05:47 09:06 RBC 2.06 L (4.30-5.90) m/uL Hgb 6.7 L* (13.0-17.5) gm/dL Hct 18.7 L* (39.0-53.0) % BUN 76 H (9-20) mg/dL Creatinine 6.82 H* (0.66-1.25) mg/dL Calcium 6.3 L* (8.4-10.2) mg/dL Alkaline Phosphatase 212 H (38-126) U/L Total Protein 5.6 L (6.3-8.2) g/dL Albumin 2.7 L (3.5-5.0) g/dL Lipase 451 H (23-300) U/L Crossmatch See Detail Diabetes panel 11/27/16 Range/Units 05:47 Sodium 142 (137-145) mmol/L Potassium 4.1 (3.5-5.1) mmol/L Chloride 106 (98-107) mmol/L Carbon Dioxide 25 (22-30) mmol/L BUN 76 H (9-20) mg/dL Creatinine 6.82 H* (0.66-1.25) mg/dL Glucose 90 (74-99) mg/dL Calcium 6.3 L* (8.4-10.2) mg/dL AST 38 (17-59) U/L ALT 35 (21-72) U/L Alkaline Phosphatase 212 H (38-126) U/L Total Protein 5.6 L (6.3-8.2) g/dL Albumin 2.7 L (3.5-5.0) g/dL Calcium panel 11/27/16 11/27/16 Range/Units 05:47 09:06 Calcium 6.3 L* (8.4-10.2) mg/dL Phosphorus 4.2 (2.5-4.5) mg/dL Albumin 2.7 L (3.5-5.0) g/dL Pituitary panel 11/27/16 Range/Units 05:47 Sodium 142 (137-145) mmol/L Potassium 4.1 (3.5-5.1) mmol/L Chloride 106 (98-107) mmol/L Carbon Dioxide 25 (22-30) mmol/L BUN 76 H (9-20) mg/dL Creatinine 6.82 H* (0.66-1.25) mg/dL Glucose 90 (74-99) mg/dL Calcium 6.3 L* (8.4-10.2) mg/dL Adrenal panel 11/27/16 Range/Units 05:47 Sodium 142 (137-145) mmol/L Potassium 4.1 (3.5-5.1) mmol/L Chloride 106 (98-107) mmol/L Carbon Dioxide 25 (22-30) mmol/L BUN 76 H (9-20) mg/dL Creatinine 6.82 H* (0.66-1.25) mg/dL Glucose 90 (74-99) mg/dL Calcium 6.3 L* (8.4-10.2) mg/dL Total Bilirubin 0.4 (0.2-1.3) mg/dL AST 38 (17-59) U/L ALT 35 (21-72) U/L Alkaline Phosphatase 212 H (38-126) U/L Total Protein 5.6 L (6.3-8.2) g/dL Albumin 2.7 L (3.5-5.0) g/dL
[2016-11-27] MEDS: amLODIPine 10 MG TAB PO SCH (21:38)
[2016-11-27] MEDS: HYDROmorphone 1 MG/ML 1 ML SYRINGE IVP PRN (23:55)
[2016-11-28] MEDS: SODIUM CHLORIDE 0.9% 1,000 ML IV SCH ×2 (03:30→13:42)
[2016-11-28] MEDS: HYDROmorphone 1 MG/ML 1 ML SYRINGE IVP PRN ×2 (04:42→09:07)
[2016-11-28] MEDS: CALCIUM CARBONATE 500 MG CHEWABLE PO SCH ×2 (06:53→16:51)
[2016-11-28 07:33] LABS: Basophils % (A) 1 %; CH 32.3; CHCM 34.4; Eosinophils # (A) 0.4 k/uL (0-0.7); Eosinophils % (A) 5 %; HCT 24.4 % (39.0-53.0); HDW 3.12; Luc # (Auto) 0.19; Luc % (Auto) 3; Lymphocytes # (A) 1.4 k/uL (1.0-4.8); Lymphocytes % (A) 19 %; MCH 31.7 pg (25.0-35.0); MCHC 33.5 g/dL (31.0-37.0); MCV 94.4 fL (80.0-100.0); Mean Platelet Volume 7.3; Monocytes # (A) 0.3 k/uL (0-1.0); Monocytes % (A) 4 %; Neutrophils % (A) 68 %; RBC 2.58 m/uL (4.30-5.90); RDW 15.4 % (11.5-15.5); WBC 7.3 k/uL (3.8-10.6)
[2016-11-28 07:35] LABS: HGB 8.2 gm/dL (13.0-17.5)
[2016-11-28] MEDS: SODIUM BICARBONATE TAB 650 MG TAB PO SCH ×3 (08:12→23:10)
[2016-11-28] MEDS: HYDROcodone/APAP 5-325MG 1 EACH TAB PO PRN ×4 (08:12→23:10)
[2016-11-28] MEDS: FAMOTIDINE 20 MG TAB PO SCH (08:12)
[2016-11-28] MEDS: HEPARIN SODIUM,PORCINE 5,000 UNIT/ML 1 ML VIAL SQ SCH ×2 (08:15→16:49)
[2016-11-28 08:16] LABS: Potassium 4.6 mmol/L (3.5-5.1); Total Bilirubin 0.5 mg/dL (0.2-1.3); Total Protein 6.1 g/dL (6.3-8.2)
[2016-11-28 08:31] LABS: Calcium 6.3 mg/dL (8.4-10.2)
[2016-11-28] MEDS ORDERED: fentaNYL (PF) 50 MCG/ML 2 ML AMP ONE (12:13)
[2016-11-28] MEDS ORDERED: HEPARIN SODIUM 1,000 UNIT/ML VIAL ONE (12:14)
[2016-11-28] MEDS ORDERED: IV FLUID CONTINUATION 550 ML IV ONE (12:28)
--- NOTE | 2016-11-28 12:38 | P.PN ---
Subjective 66-year-old Yanelis male seen and evaluated currently sitting up on the edge of the bed . Patient is aware of the plan of care. Patient is being followed by nephrology. Patient is scheduled today for placement of a dialysis catheter in a gentleman who has chronic renal failure stage IV with agreed to start hemodialysis Labs were reviewed. Hemoglobin is 8.2. Hemoglobin was 6.7 on the eighth patient did have 1 unit of packed red blood cells infused on November 27 the calcium was 6.3 which replacement has been given creatinine is 7 Objective - Vital Signs Vital signs: Vital Signs Temp 97.6 F 11/28/16 12:00 Pulse 70 11/28/16 12:00 Resp 18 11/28/16 12:00 BP 123/78 11/28/16 12:00 Pulse Ox 96 11/28/16 12:00 Intake & Output 11/27/16 11/28/16 11/28/16 18:59 06:59 18:59 Intake Total 1740 Output Total 1650 550 Balance 90 -550 Weight 63.8 kg Intake: IV 600 Sodium Chloride 0.9% 1, 600 000 ml @ 50 mls/hr IV . Q20H BR[facility] Rx#:[id number] Intake, IV Titration 740 Amount Calcium Gluconate 1,000 100 mg In Sodium Chloride 0.9 % 100 ml @ 100 mls/hr IVPB ONCE ONE Rx#: [id number] Dextrose 5% in Water 1, 640 000 ml @ 80 mls/hr IV . [id number] [place] with Sodium Bicarb (1 Meq/ml) 150 ml Rx#:[id number] Oral 400 Blood Product 0 Rc Cpda-1 Unit 0 [id number] Output: Urine 1650 550 Other: Voiding Method Urinal Urinal Urinal # Voids 2 - Exam Physical exam 66-year-old gentleman sitting up on the edge of the bed oriented 3 aware that he is scheduled today for dialysis catheter to start hemodialysis Lungs essentially clear on room air Heart S1-S2 audible and regular monitor sinus denying chest pain Abdomen soft nontender no reports of nausea vomiting no frequent stooling Extremities no edema to the lower extremities - Labs CBC & Chem 7: 11/28/16 07:00 11/28/16 06:14 Labs: Abnormal Lab Results - Last 24 Hours (Table) 11/28/16 11/28/16 Range/Units 06:14 07:00 RBC 2.58 L (4.30-5.90) m/uL Hgb 8.2 L D (13.0-17.5) gm/dL Hct 24.4 L (39.0-53.0) % Chloride 108 H (98-107) mmol/L BUN 71 H (9-20) mg/dL Creatinine 7.04 H* (0.66-1.25) mg/dL Calcium 6.3 L* (8.4-10.2) mg/dL Alkaline Phosphatase 204 H (38-126) U/L Total Protein 6.1 L (6.3-8.2) g/dL Albumin 3.0 L (3.5-5.0) g/dL Assessment and Plan Plan: Impression Present on admission lower back pain suspect due to acute renal failure Chronic kidney disease stage IV currently not on hemodialysis Present on admission elevated lipase abdominal pain likely due to chronic relapsing pancreatitis likely idiopathic although alcohol related etiology could be a possibility Present on admission anemia of chronic illness hemoglobin stable History of cocaine abuse used 2 weeks prior Active tobacco abuse every day smoker 1 pack a day greater than a 40 year history Present on admission hyperkalemia suspect due to acute renal failure improving Acute on chronic renal failure stage IV Present on admission elevated lipase acute pancreatitis multifactorial suspect a component of daily alcohol consumption with acute renal failure Issues of medical noncompliant with follow-up and medication Present on admission hypertension urgency History of alcoholism not active Acute anemia currently receiving 1 unit of packed red blood cells Hypocalcemia secondary to hypo-albuminemia with acute renal failure Plan Calcium to be replaced Continue recommendations by nephrology patient has agreed for hemodialysis to be initiated Repeat labs in the morning Pain control Resume home meds as appropriate Monitor labs keep electrolytes in a therapeutic range DVT and GI prophylaxis Hemodialysis to be initiated per the recommendations of nephrology service Will advance diet to a renal diet meat department manager and social work therapist to pursue the discharge plan patient agrees for hemodialysis may need subacute rehab or placement will defer to casework manager and nephrology The above dictated assessment and findings were discussed with dr wesley Vitale and the plan of care have been dictated as directed. Taina Urbina nurse practitioner acting as a scribe for dr olson
[2016-11-28] MEDS: fentaNYL (PF) 50 MCG/ML 2 ML AMP IV ONE ×2 (12:45→13:01)
[2016-11-28] MEDS ORDERED: LIDOCAINE 2% INJ 20 MG/ML SQ ONE (12:50)
[2016-11-28] MEDS ORDERED: CALCIUM GLUCONATE 1,000 MG in SODIUM CHLORIDE 0.9% 100 ML IVPB ONE (13:30)
--- NOTE | 2016-11-28 13:37 | IR ---
Fluoroscopy HISTORY: For dialysis 3.6 minutes fluoroscopy time supplied to the referring clinician. 224 intraoperative C-arm images do cument the procedure. See dictated report from vascular surgery.
--- NOTE | 2016-11-28 14:04 | PN ---
The patient is seen for follow-up for CKD stage V. He is scheduled to have a Perm-A-Cath placed today for initiation of renal replacement therapy. The patient will have his first treatment today. He was also be dialyzed tomorrow and needs to be set up for outpatient dialysis. Patient has a daily to comply with treatment as outpatient. On examination, blood pressure is 123/78, heart rate 70 per minute. He is afebrile. Examination of the heart S1 and S2. Examination of the lungs, bilateral breath sounds are heard. Abdomen is soft, nontender. Examination of lower extremities shows no edema. VIDEO EFFECTS EDITOR exam is grossly intact. Labs show sodium 143, potassium 4.6. Hemoglobin 8.2 g/dL. ASSESSMENT: 1. End-stage renal end-stage renal disease, to start hemodialysis today. Patient is scheduled for PermCath placement at noon by Dr. Heath. 2. Anemia with no active bleeding noted, status post packed RBC transfusion with adequate iron studies in September, maintained on Aranesp. 3. Severe metabolic acidosis on initial admission, currently improved. 4. Hypocalcemia with corrected calcium around 7 mg/dL. The patient is maintained on calcium supplements. He was also need vitamin D. PTH will be ordered as well along with 25 hydroxy vitamin D. PLAN: Start dialysis today. The patient will have another treatment tomorrow. We will plan for outpatient placement.
--- NOTE | 2016-11-28 14:10 | XR ---
EXAMINATION TYPE: XR chest 1V DATE OF EXAM: 11/28/2016 CLINICAL HISTORY: New dialysis portacatheter placed. TECHNIQUE: Single AP portable upright view of the chest is obtained. COMPARISON: Chest x-ray from October 20, 2016. FINDINGS: There is right internal jugular dual-lumen dialysis catheter with tips in SVC and at [place] similar in position to prior exam. Lungs are grossly clear without pleural effusion or pneumothorax. Cardiac blood size is within normal limits. Osseous structures are intact. IMPRESSION: No evidence of complication related to dialysis catheter placement. No acute pulmonary pr ocess is evident.
[2016-11-28] MEDS: THIAMINE 100 MG TAB PO SCH ×2 (14:34→16:53)
[2016-11-28] MEDS ORDERED: HEPARIN SODIUM,PORCINE 5,000 UNIT/ML 1 ML VIAL ONE (17:35)
--- NOTE | 2016-11-28 23:04 | PCN ---
DATE OF PROCEDURE: PREOPERATIVE DIAGNOSIS: Acute renal failure. PROCEDURE: Ultrasound-guided 28 cm dialysis catheter placement in right jugular approach. Patient was brought to the open hearth furnace laborer. The right side of the neck and chest was prepped and drapes applied in the usual sterile manner. 1% lidocaine infiltrated in the chest and neck area. Ultrasound-guided. Micropuncture into jugular vein. Micropuncture guidewire passed and 4 Greek dilator was advanced on the guidewire. After that incision was made in the chest wall, tunnel was created. Through the tunnel, we brought 28 cm dialysis catheter in neck incision area. After that, we passed the regular guidewire which was parked in the inferior vena cava. Dilator advanced on top of the guidewire. Then sheath was advanced. Through the sheath, we introduced the dialysis catheter. Tip of the superior vena cava and atrium, flushed with heparin saline and hep-locked, secured with Vicryl and nylon. The patient tolerated the procedure well.
[2016-11-28] MEDS: amLODIPine 10 MG TAB PO SCH (23:10)
[2016-11-29] MEDS: HEPARIN SODIUM,PORCINE 5,000 UNIT/ML 1 ML VIAL SQ SCH ×3 (01:20→17:25)
[2016-11-29] MEDS: HYDROcodone/APAP 5-325MG 1 EACH TAB PO PRN ×5 (02:59→21:29)
[2016-11-29] MEDS: SODIUM BICARBONATE TAB 650 MG TAB PO SCH (08:10)
[2016-11-29] MEDS: CALCIUM CARBONATE 500 MG CHEWABLE PO SCH (08:10)
[2016-11-29] MEDS: FAMOTIDINE 20 MG TAB PO SCH (08:11)
[2016-11-29 09:30] LABS: Basophils # (A) 0.1 k/uL (0-0.2); Basophils % (A) 1 %; CHCM 33.9; Eosinophils # (A) 0.3 k/uL (0-0.7); Eosinophils % (A) 4 %; HCT 26.4 % (39.0-53.0); HDW 3.26; HGB 8.9 gm/dL (13.0-17.5); Luc # (Auto) 0.19; Luc % (Auto) 2; Lymphocytes # (A) 1.5 k/uL (1.0-4.8); Lymphocytes % (A) 19 %; MCHC 33.7 g/dL (31.0-37.0); MCV 95.1 fL (80.0-100.0); Mean Platelet Volume 7.6; Monocytes # (A) 0.5 k/uL (0-1.0); Monocytes % (A) 7 %; Neutrophils # (A) 5.3 k/uL (1.3-7.7); Neutrophils % (A) 67 %; RBC 2.78 m/uL (4.30-5.90); RDW 15.4 % (11.5-15.5); WBC 7.9 k/uL (3.8-10.6); WBC (Perox) 7.88
[2016-11-29 10:45] LABS: Calcium 7.3 mg/dL (8.4-10.2); Potassium 4.7 mmol/L (3.5-5.1); Total Bilirubin 0.4 mg/dL (0.2-1.3); Total Protein 6.1 g/dL (6.3-8.2)
[2016-11-29] MEDS: THIAMINE 100 MG TAB PO SCH ×2 (12:15→17:24)
[2016-11-29] MEDS: SODIUM CHLORIDE 0.9% 1,000 ML IV SCH (12:16)
[2016-11-29] MEDS: CALCIUM CARB-VIT D 500MG-200UN 1 EACH TAB PO SCH ×3 (12:21→21:31)
--- NOTE | 2016-11-29 16:13 | PN ---
Mr. Guillen is being followed for CKD V with new start for dialysis. He is status post Perm-A-Cath placement yesterday with hemodialysis performed yesterday; scheduled for another treatment today. He is currently waiting for outpatient dialysis setup. Overnight no events. Denying any complaints. Remains in good spirits. Tolerated the dialysis well yesterday. PHYSICAL EXAMINATION: VITAL SIGNS: Afebrile. Blood pressure 140/87. Respiratory rate 17 per minute. Saturations 95% on room air. GENERAL APPEARANCE: Patient is lying comfortably in bed. No acute distress. LUNGS: Clear to auscultation bilaterally. CARDIOVASCULAR: Regular rate, rhythm. S1, S2. ABDOMEN: Soft, nontender. EXTREMITIES: Bilateral pulses. No edema. Right IJ Perm-A-Cath in place. LABS: Hemoglobin 8.9, WBC 7.9. Phosphorus yesterday 4.2. Calcium 6.3 with albumin 3.0. IMPRESSION: 1. End-stage renal disease, new start on hemodialysis, status post right IJ Perm-A-Cath November 28, 2016, status post first dialysis treatment yesterday, scheduled for second treatment today. 2. Anemia secondary to underlying chronic kidney disease. Rule out any iron deficiency. Currently on Aranesp 40 mcg every 7 days. 3. Metabolic bone disease. Phosphorus within normal limits; however, hypocalcemia, currently on TUMS b.i.d. with meals. Vitamin D levels pending. 4. Hypertension, stable on Norvasc. RECOMMENDATIONS: 1. Scheduled for hemodialysis today. 2. automotive tire worker evaluation for outpatient dialysis setup. Whenever the dialysis is set up, patient can be discharged from nephro standpoint. 3. Given patient has been started on dialysis, will stop the sodium bicarb. If needed, will readjust the level for bicarbonate in the dialysis. 4. Start patient on Os Shahram vitamin D also in addition to the TUMS for the next 7 days, and re-evaluate levels for vitamin D and calcium as outpatient. Thank you, Dr. Romano, for allowing me to participate in the care of this patient. Will follow the patient along with you.
[2016-11-29] MEDS ORDERED: HEPARIN SODIUM,PORCINE 5,000 UNIT/ML 1 ML VIAL ONE (18:10)
--- NOTE | 2016-11-29 18:51 | PN ---
SUBJECTIVE: 66-year-old male with renal insufficiency, had a port placement yesterday by Dr. Heath. Chest x-ray was normal post placement. Temp 99.3, blood pressure 140/87, pulse is 70s to 80s, O2 is 95% to 98% on room air. CARDIOVASCULAR: S1, S2. LUNGS: Clear. GI: Soft. INTEGUMENT: Port incision looks clean, dry, intact. MUSCULOSKELETAL: Lumbar cervical tenderness and muscle spasms. LABS: Hemoglobin 8.9, white count 7.9, creatinine is down to 5 status post dialysis, BUN of 43, albumin is 3. Hepatitis C reactive antibodies. ASSESSMENT: 1. Hepatitis C. 2. Acute on chronic endstage renal disease. 3. Chronic obstructive pulmonary disease. 4. Degenerative disc disease. 5. Hypertension. 6. Gastroesophageal reflux disease. Continue on current medications including hypertension medicine and Norvasc. [place] for pain. Continue with dialysis treatments. Follow up in the next 24 to 48 hours.
[2016-11-29] MEDS: amLODIPine 10 MG TAB PO SCH (21:31)
[2016-11-30] MEDS: HYDROcodone/APAP 5-325MG 1 EACH TAB PO PRN ×5 (01:49→18:58)
[2016-11-30] MEDS: HEPARIN SODIUM,PORCINE 5,000 UNIT/ML 1 ML VIAL SQ SCH ×4 (01:49→23:32)
[2016-11-30 09:16] LABS: CH 31.7; HCT 26.8 % (39.0-53.0); HDW 3.04; HGB 8.5 gm/dL (13.0-17.5); Hypochromasia Slight; MCH 31.5 pg (25.0-35.0); MCHC 31.6 g/dL (31.0-37.0); MCV 99.7 fL (80.0-100.0); Macrocytosis Slight; Mean Platelet Volume 7.9; RBC 2.69 m/uL (4.30-5.90); RDW 15.3 % (11.5-15.5); WBC 6.2 k/uL (3.8-10.6); WBC (Perox) 6.18
[2016-11-30] MEDS: CALCIUM CARB-VIT D 500MG-200UN 1 EACH TAB PO SCH ×4 (09:22→20:28)
[2016-11-30] MEDS: FAMOTIDINE 20 MG TAB PO SCH (09:22)
[2016-11-30 09:30] LABS: Calcium 8.3 mg/dL (8.4-10.2); Potassium 4.8 mmol/L (3.5-5.1); Total Bilirubin 0.5 mg/dL (0.2-1.3); Total Protein 6.4 g/dL (6.3-8.2)
[2016-11-30 09:46] LABS: Add Differential Manual Differential
[2016-11-30 09:49] LABS: Nucleated Red Blood Cells 0 /100 WBC (0-0); Polychromasia Present; Total Cells Counted 100
[2016-11-30] MEDS ORDERED: HEPARIN SODIUM,PORCINE 5,000 UNIT/ML 1 ML VIAL ONE (12:41)
[2016-11-30] MEDS: THIAMINE 100 MG TAB PO SCH ×2 (12:49→16:15)
--- NOTE | 2016-11-30 14:37 | PN ---
Mr. Guillen is being followed for end stage renal disease management. He started on dialysis status post PermCath placed November 28 2016, got his first treatment on November 28 followed by November 29 and will schedule for tomorrow, currently waiting for outpatient dialysis set up. Denying any complaint. No overnight events. PHYSICAL EXAMINATION: VITAL SIGNS: Pressure 130/68, pulse 97 ox on room air. Afebrile. Pulse rate 65 per minute. GENERAL APPEARANCE: The patient is sitting comfortably in bed. No acute distress. LUNGS: Clear to auscultation bilaterally. CARDIOVASCULAR: Regular rate and rhythm. S1, S2. ABDOMEN: Soft, nontender. EXTREMITIES: Bilateral pulses, no edema. LABS: Not done. IMPRESSION: 1. End-stage liver disease new start on hemodialysis, status post dialysis November 28 and November 29. We will schedule for his third treatment tomorrow. 2. Anemia secondary to underlying chronic kidney disease started on Aranesp. 3. Metabolic bone disease phosphorus within normal limits however, calcium has been running on the lower side, switched to TUMS b.i.d. Started on Os-Shahram vitamin D. 4. Hypertension stable on Norvasc. RECOMMENDATION: We will schedule for another dialysis treatment tomorrow. television maintenance worker help for arranging outpatient dialysis. BMP along with albumin and 25 ( ) vitamin levels with dialysis tomorrow. Thank you, Dr. Romano for allowing me to participate in the care of this patient. We will follow the patient along with you.
--- NOTE | 2016-11-30 17:10 | PN ---
Patient is seen, evaluated, examined. A 66-year-old male with acute renal failure. Clinically patient is doing well. He has 2 [id number] dialysis and again is scheduled for tomorrow. Patient has nonoliguric renal failure. This patient was seen, evaluated, examined while covering for Dr. Justin Romano. From hemodynamic standpoint doing relatively well. His blood pressure is 130/72, respiratory rate 16, pulse is 65, temperature 98, saturation 97% on room air. HEENT: Unremarkable. NECK: Supple. LUNGS: Good air entry bilaterally. HEART: Regular rate and rhythm. ABDOMEN: Soft. NEUROLOGICAL EXAMINATION: Otherwise, awake and alert. His dialysis catheter intact. His labs are reviewed. BUN and creatinine are 30 and 4.12 today, which is down from 71 and 7.04 48 hours ago. Sodium is 140, potassium 4.9. His glucose is 187, hemoglobin 9.5, hematocrit 26.8, platelet count 265,000. Medications reviewed. Last chest x-ray reviewed as well. Overall stable, post dialysis catheter placement. IMPRESSION: 1. Acute on chronic renal failure. 2. Diabetes mellitus. 3. Hypertension, hypertensive cardiovascular disease. 4. Chronic hepatitis C. 5. Gastroesophageal reflux disease. PLAN AND RECOMMENDATION: Continue hemodialysis as planned. Continue supportive care. Post dialysis tomorrow, if continues to do well likely will be discharged. We will follow and order the labs for tomorrow as well.
[2016-11-30] MEDS: amLODIPine 10 MG TAB PO SCH (20:28)
[2016-12-01] MEDS: HYDROcodone/APAP 5-325MG 1 EACH TAB PO PRN ×5 (01:06→20:13)
[2016-12-01] MEDS: CALCIUM CARB-VIT D 500MG-200UN 1 EACH TAB PO SCH ×4 (08:32→20:13)
[2016-12-01] MEDS: HEPARIN SODIUM,PORCINE 5,000 UNIT/ML 1 ML VIAL SQ SCH ×2 (08:32→17:55)
[2016-12-01 09:11] LABS: Calcium 8.5 mg/dL (8.4-10.2); Potassium 5.3 mmol/L (3.5-5.1); Total Bilirubin 0.5 mg/dL (0.2-1.3); Total Protein 6.2 g/dL (6.3-8.2)
[2016-12-01] MEDS: FAMOTIDINE 20 MG TAB PO SCH (10:18)
--- NOTE | 2016-12-01 11:24 | P.PN ---
Subjective 66-year-old being seen in this morning with no new events. Patient is scheduled for hemodialysis today. location manager is pursuing the discharge plan. Anticipate discharge soon when the outpatient placement for the dialysis is arranged. Patient has end-stage renal disease has started hemodialysis. Patient has a permacath placed for access. Objective - Vital Signs Vital signs: Vital Signs Temp 98.1 F 12/01/16 07:20 Pulse 72 12/01/16 07:20 Resp 16 12/01/16 07:20 BP 118/70 12/01/16 07:20 Pulse Ox 95 12/01/16 07:20 Intake & Output 11/30/16 12/01/16 12/01/16 18:59 06:59 18:59 Intake Total 1080 Output Total 1300 Balance -220 Weight 66 kg Intake: Oral 1080 Output: Urine 1300 Other: Voiding Method Urinal # Voids 3 - Exam Physical exam 66-year-old male sitting up on the edge of the bed no new events noted Lungs essentially clear adequate air movement on room air sats are 95% Heart S1-S2 audible and regular Abdomen soft nontender no frequent stooling no nausea no vomiting Extremities no edema noted - Labs CBC & Chem 7: 11/30/16 08:30 12/01/16 08:01 Labs: Abnormal Lab Results - Last 24 Hours (Table) 11/28/16 11/28/16 12/01/16 Range/Units 15:51 15:51 08:01 Potassium 5.3 H (3.5-5.1) mmol/L Chloride 111 H (98-107) mmol/L Carbon Dioxide 20 L (22-30) mmol/L BUN 42 H (9-20) mg/dL Creatinine 5.70 H* (0.66-1.25) mg/dL Glucose 108 H (74-99) mg/dL AST 72 H (17-59) U/L Alkaline Phosphatase 240 H (38-126) U/L Total Protein 6.2 L (6.3-8.2) g/dL Albumin 3.0 L (3.5-5.0) g/dL Vitamin D 25-Hydroxy 6.8 L (30.0-100.0) ng/mL PTH Intact 801.1 H (14.0-72.0) pg/mL Assessment and Plan Plan: Impression Present on admission lower back pain suspect due to acute renal failure Chronic kidney disease stage IV currently not on hemodialysis Present on admission elevated lipase abdominal pain likely due to chronic relapsing pancreatitis likely idiopathic although alcohol related etiology could be a possibility Present on admission anemia of chronic illness hemoglobin stable History of cocaine abuse used 2 weeks prior Active tobacco abuse every day smoker 1 pack a day greater than a 40 year history Present on admission hyperkalemia suspect due to acute renal failure improving Acute on chronic renal failure stage IV Present on admission elevated lipase acute pancreatitis multifactorial suspect a component of daily alcohol consumption with acute renal failure Issues of medical noncompliant with follow-up and medication Present on admission hypertension urgency History of alcoholism not active Acute anemia currently receiving 1 unit of packed red blood cells with no evidence of an active bleed with adequate iron studies in September 2016 maintained on aranesp Hypocalcemia secondary to hypo-albuminemia with acute renal failure Status post November 30 dialysis catheter placed in the right jugular per vascular surgery Plan Calcium to be replaced Continue recommendations by nephrology patient has agreed for hemodialysis to be initiated Repeat labs in the morning Pain control Resume home meds as appropriate Monitor labs keep electrolytes in a therapeutic range DVT and GI prophylaxis Hemodialysis to be initiated per the recommendations of nephrology service Will advance diet to a renal diet The above dictated assessment and findings were discussed with dr wesley Vitale and the plan of care have been dictated as directed. Taina Urbina nurse practitioner acting as a scribe for dr olson
--- NOTE | 2016-12-01 12:27 | PN ---
Patient is seen for follow-up for end-stage renal disease. He had his catheter placed on Thursday and has had hemodialysis treatment. He was also dialyzed on November 29 on Thursday. Patient is scheduled for hemodialysis today. freezer worker has been working for outpatient placement. On examination, blood pressure is 144/77, heart rate 75 per minute. He is afebrile. Examination of the heart S1 and S2. Examination of the lungs: Bilateral breath sounds are heard. ABDOMEN: Soft, nontender. Examination of lower extremities shows no evidence of edema. GAS FURNACE INSTALLER exam is grossly intact. Labs show sodium 142, potassium 5.3, BUN 42, serum creatinine 5.7. Hemoglobin was 8.5 yesterday. ASSESSMENT: 1. End-stage renal disease on hemodialysis. Patient needs to be set up for outpatient treatment. 2. Hyperkalemia on initial admission, currently improved. 3. Metabolic acidosis secondary to renal failure, currently improved post dialysis. 4. Anemia of chronic disease. 5. Hypocalcemia associated with severe nutritional vitamin D deficiency. PLAN: Add Drisdol 50,000 units weekly continue with the Os-Shahram-D. Patient may need to have his vein mapping done prior to his first treatment for hemodialysis as outpatient.
[2016-12-01] MEDS ORDERED: HEPARIN SODIUM,PORCINE 5,000 UNIT/ML 1 ML VIAL ONE (13:30)
[2016-12-01 14:07] VITALS: BMI 22.8
[2016-12-01] MEDS: THIAMINE 100 MG TAB PO SCH ×2 (15:02→17:55)
[2016-12-01] MEDS: amLODIPine 10 MG TAB PO SCH (20:13)
[2016-12-02] MEDS: HYDROcodone/APAP 5-325MG 1 EACH TAB PO PRN ×6 (00:02→20:53)
[2016-12-02] MEDS: HEPARIN SODIUM,PORCINE 5,000 UNIT/ML 1 ML VIAL SQ SCH ×5 (00:03→23:40)
[2016-12-02] MEDS: CALCIUM CARB-VIT D 500MG-200UN 1 EACH TAB PO SCH ×4 (07:41→20:48)
[2016-12-02] MEDS: FAMOTIDINE 20 MG TAB PO SCH (07:42)
--- NOTE | 2016-12-02 11:11 | P.PN ---
Subjective 66-year-old male sitting up in bed aware the plan of care. manager operations pursuing the discharge patient will need to be set up for hemodialysis in the outpatient setting 3 times a week. Nursing reports that the mapping appointment has been scheduled for 1245 on the day of discharge discharge is currently pending chair time availability and insurance approval Hospital course A 66-year-old Afro-Mal[place]ian male presented on the day of admission to the emergency room with a chief complaint of developing back pain in November 24. Patient stated been ongoing for the past several days. Patient was just discharged 10/22/2016 from [facility] at which time the patient was treated for severe pancreatitis, cocaine abuse with severe rhabdomyolysis with acute renal failure. Patient does have a history of chronic kidney disease stage IV That admission the patient was dialyzed a couple times and was set up for hemodialysis in anticipation the patient would need outpatient dialysis. Patient was seen that admission by Dr. Heath and the hemodialysis catheter was placed. Patient subsequently refused to have any further dialysis and was insisting that the catheter be removed . Nephrology participated in the plan of care throughout the hospitalization. Dr. Mccurdy did have conversation with the patient that admission the risk of not having hemodialysis place the patient the risk of dying Patient stated he did not want to have dialysis at that time was discharged home on October 22 returning to the emergency room on November 24 with severe renal failure, generalized weakness severe metabolic acidosis and hyperkalemia. Nephrology was reconsulted. Patient did agree this admission to have a permacath placed and to start hemodialysis for the chronic kidney disease. manager operations did participate in the plan of care. Patient was set up for outpatient dialysis Patient was able to verbalized the importance of complying with following up for hemodialysis 3 times a week. Objective - Vital Signs Vital signs: Vital Signs Temp 97.4 F L 12/02/16 07:46 Pulse 72 12/02/16 07:46 Resp 20 12/02/16 07:46 BP 105/61 12/02/16 07:46 Pulse Ox 96 12/02/16 07:46 Intake & Output 12/01/16 12/02/16 12/02/16 18:59 06:59 18:59 Intake Total 250 700 240 Output Total 100 Balance 150 700 240 Weight 66 kg Intake: Oral 700 240 Blood Product 250 Rc Cpda-1 Unit 250 [id number] Output: Urine 100 Other: Voiding Method Urinal # Voids 2 - Exam Physical exam 66-year-old male sitting up on the edge of the bed Lung essentially clear on room air Heart S1-S2 audible and regular Abdomen soft nontender no frequent stooling no nausea no vomiting Extremities no edema noted - Labs CBC & Chem 7: 11/30/16 08:30 12/01/16 08:01 Labs: Abnormal Lab Results - Last 24 Hours (Table) 11/27/16 Range/Units 09:06 Crossmatch See Detail Assessment and Plan Plan: Impression Present on admission lower back pain suspect due to acute renal failure Chronic kidney disease stage IV currently not on hemodialysis Present on admission elevated lipase abdominal pain likely due to chronic relapsing pancreatitis likely idiopathic although alcohol related etiology could be a possibility Present on admission anemia of chronic illness hemoglobin stable History of cocaine abuse used 2 weeks prior Active tobacco abuse every day smoker 1 pack a day greater than a 40 year history Present on admission hyperkalemia suspect due to acute renal failure improving Acute on chronic renal failure stage IV Present on admission elevated lipase acute pancreatitis multifactorial suspect a component of daily alcohol consumption with acute renal failure Issues of medical noncompliant with follow-up and medication Present on admission hypertension urgency History of alcoholism not active Acute anemia currently receiving 1 unit of packed red blood cells with no evidence of an active bleed with adequate iron studies in September 2016 maintained on aranesp Hypocalcemia secondary to hypo-albuminemia with acute renal failure Status post November 30 dialysis catheter placed in the right jugular per vascular surgery Anemia secondary to underlying chronic kidney disease started on aranesp Metabolic bone disease phosphorus Hypertension Plan Patient is to be discharged when chair times have been assigned and insurance approval for hemodialysis has been arranged Resume home meds as appropriate Monitor labs keep electrolytes in a therapeutic range DVT and GI prophylaxis Outpatient mapping will be arranged before patient is discharged per nephrology' s recommendations Will advance diet to a renal diet The above dictated assessment and findings were discussed with dr olson Impression and the plan of care have been dictated as directed. Taina Urbina nurse practitioner acting as a scribe for dr olson
[2016-12-02] MEDS: THIAMINE 100 MG TAB PO SCH ×2 (12:48→17:10)
--- NOTE | 2016-12-02 20:09 | PN ---
Patient is seen for follow-up for end-stage renal disease and is schedule for hemodialysis tomorrow. We are awaiting final placement as outpatient. On examination today, blood pressure is 137/72, heart rate 84 per minute. The patient is afebrile. Examination of the heart: S1 and S2. Examination of the lungs: Bilateral breath sounds are heard. Abdomen is soft, nontender. Examination of lower extremities shows no edema. [employer] exam is grossly intact. Labs show sodium 142, potassium 5.3, BUN 42, serum creatinine 5.7. ASSESSMENT: 1. End-stage renal disease; started on hemodialysis. Patient is in need to have vein mapping done prior to his first treatment of hemodialysis as outpatient. I have discussed with him on multiple occasions regarding need for compliance as outpatient and need for obtaining an AV fistula in his arm as an access for dialysis. He has been advised that the Perm-A-Cath is temporary and will need to be discontinued as soon as possible as soon as he has a functioning arm access. 2. Severe hyperkalemia initial admission, currently improved. 3. Severe secondary hyperparathyroidism with severe nutritional vitamin D deficiency. Started on Drisdol and maintained on calcium and vitamin D supplementation. We will evaluate for Rocaltrol as outpatient. PLAN: Hemodialysis in a.m.
[2016-12-02] MEDS: amLODIPine 10 MG TAB PO SCH (20:48)
[2016-12-03] MEDS: HYDROcodone/APAP 5-325MG 1 EACH TAB PO PRN ×3 (02:38→10:50)
[2016-12-03 07:33] VITALS: BP 134/70; PULSE 66; RESP 20; TEMP 97.3
[2016-12-03] MEDS: CALCIUM CARB-VIT D 500MG-200UN 1 EACH TAB PO SCH (08:29)
[2016-12-03] MEDS: FAMOTIDINE 20 MG TAB PO SCH (08:30)
[2016-12-03] MEDS: HEPARIN SODIUM,PORCINE 5,000 UNIT/ML 1 ML VIAL SQ SCH (08:34)
--- NOTE | 2016-12-03 09:50 | P.DS ---
Providers Date of admission: 11/24/16 07:20 Expected date of discharge: 12/03/16 Attending physician: Justin Olson Consults: 11/24/16 07:30 Consult Physician Routine Consulting Provider: Ruby Mccurdy Consult Reason/Comments: acute renal failure Do you want consulting provider notified?: Yes 11/27/16 14:27 Consult Physician Routine Consulting Provider: Theron Heath Consult Reason/Comments: permacath insertion Do you want consulting provider notified?: Yes Primary care physician: [place] Hospital Course: Hospital course A 66-year-old Afro-Australian male presented on the day of admission to the emergency room with a chief complaint of developing back pain in November 24. Patient stated been ongoing for the past several days. Patient was just discharged 10/22/2016 from [facility] at which time the patient was treated for severe pancreatitis, cocaine abuse with severe rhabdomyolysis with acute renal failure. Patient does have a history of chronic kidney disease stage IV That admission the patient was dialyzed a couple times and was set up for hemodialysis in anticipation the patient would need outpatient dialysis. Patient was seen that admission by Dr. Heath and the hemodialysis catheter was placed. Patient subsequently refused to have any further dialysis and was insisting that the catheter be removed . Nephrology participated in the plan of care throughout the hospitalization. Dr. Mccurdy did have conversation with the patient that admission the risk of not having hemodialysis place the patient at increased risk of dying Patient stated he did not want to have dialysis at that time was discharged home on October 22 returning to the emergency room on November 24 with severe renal failure, generalized weakness severe metabolic acidosis and hyperkalemia. Nephrology was reconsulted. Patient did agree this admission to have a permacath placed and to start hemodialysis for the chronic kidney disease. supplier quality manager did participate in the plan of care. Patient was set up for outpatient dialysis Patient was able to verbalized the importance of complying with following up for hemodialysis 3 times a week. Patient did receive dialysis on the day of discharge additionally patient had an appointment at Dr. Heath office on December 03 for mapping to be done. It was stressed to the patient and the mapping needed to be done before his outpatient hemodialysis could be started. The continuous pillowcase cutter throughout the hospitalization did address home and says able arise. The patient indicated that he would be taking a bus to hemodialysis 3 times a week. Hospital did provide the patient transportation via a taxi when the patient was discharged on December [address] heath. office to have the mapping done Impression Present on admission lower back pain suspect due to acute renal failure Chronic kidney disease stage IV currently not on hemodialysis Present on admission elevated lipase abdominal pain likely due to chronic relapsing pancreatitis likely idiopathic although alcohol related etiology could be a possibility Present on admission anemia of chronic illness hemoglobin stable History of cocaine abuse used 2 weeks prior Active tobacco abuse every day smoker 1 pack a day greater than a 40 year history Present on admission hyperkalemia suspect due to acute renal failure improving Acute on chronic renal failure stage IV Present on admission elevated lipase acute pancreatitis multifactorial suspect a component of daily alcohol consumption with acute renal failure Issues of medical noncompliant with follow-up and medication Present on admission hypertension urgency History of alcoholism not active Acute anemia currently receiving 1 unit of packed red blood cells with no evidence of an active bleed with adequate iron studies in September 2016 maintained on aranesp Hypocalcemia secondary to hypo-albuminemia with acute renal failure Status post November 30 dialysis catheter placed in the right jugular per vascular surgery Anemia secondary to underlying chronic kidney disease started on aranesp Metabolic bone disease phosphorus Hypertension The above dictated assessment and findings were discussed with dr wesley Vitale and the plan of care have been dictated as directed. Taina Urbina nurse practitioner acting as a scribe for dr olson Plan - Discharge Summary New Discharge Prescriptions: New amLODIPine [Norvasc] 10 mg PO HS #30 tab Calcium Carb-Vit D 500Mg-200Un [Oscal 500+D] 1 each PO ACHS #120 tab Acetaminophen Tab [Tylenol] 650 mg PO Q6HR PRN tab PRN Reason: Mild Pain Or Fever > 100.5 Thiamine [Vitamin B-1] 100 mg PO BID@1200,1700 #60 tab Continue Hydrocodone/Acetaminophen [[place] 10-325 Tablet] 1 tab PO Q8HR PRN PRN Reason: Pain Discharge Medication List Hydrocodone/Acetaminophen [[place] 10-325 Tablet] 1 tab PO Q8HR PRN 11/24/16 [ History] Acetaminophen Tab [Tylenol] 650 mg PO Q6HR PRN tab 12/03/16 [Rx] Calcium Carb-Vit D 500Mg-200Un [Oscal 500+D] 1 each PO ACHS #120 tab 12/03/16 [ Rx] Thiamine [Vitamin B-1] 100 mg PO BID@1200,1700 #60 tab 12/03/16 [Rx] amLODIPine [Norvasc] 10 mg PO HS #30 tab 12/03/16 [Rx] Follow up Appointment(s)/Referral(s): Justin Olson MD [Primary Care Provider] - 1-2 days Theron Heath MD [STAFF PHYSICIAN] - 12/04/16 12:45 pm (Vein mapping.) Patient Instructions/Handouts: Acute Kidney Injury (DC) Activity/Diet/Wound Care/Special Instructions: Cardiac, renal diet. Pt is to go to [facility] on Thursday (12/05) at 6 am for his first dialysis treatment. Will be on a Thursday/Thursday/Thursday schedule and will have a normal run time of 6:45 am #[phone] NO smoking, cessation information provided. Discharge Disposition: HOME SELF-CARE
== END 2016-12-03 11:59 | disposition home or self-care (01) | DRG 682 ==
LOC: EC 00:53 → 6SEL 07:20 → 4MS4W 11-28 18:23
PROVIDERS: ADMIT Family Medicine; ATTEND Family Medicine
PROC: 06HM33Z Insertion of Infusion Device into Right Femoral Vein, Percutaneous Approach (ICD-10-PCS; 2016-11-24)
PROC: 30263N1 (ICD-10-PCS; 2016-11-27)
PROC: 05HM33Z Insertion of Infusion Device into Right Internal Jugular Vein, Percutaneous Approach (ICD-10-PCS; principal; 2016-11-28 12:00)
PROC: 5A1D60Z (ICD-10-PCS; 2016-11-28 12:00)
DX: N17.9 Acute kidney failure, unspecified (principal); K85.20 Alcohol induced acute pancreatitis without necrosis or infection; K85.00 Idiopathic acute pancreatitis without necrosis or infection; E87.2 Acidosis; I13.11 Hypertensive heart and chronic kidney disease without heart failure, with stage 5 chronic kidney disease, or end stage renal disease; K86.0 Alcohol-induced chronic pancreatitis; E11.22 Type 2 diabetes mellitus with diabetic chronic kidney disease; E88.09 Other disorders of plasma-protein metabolism, not elsewhere classified; E87.5 Hyperkalemia; E83.9 Disorder of mineral metabolism, unspecified; J44.9 Chronic obstructive pulmonary disease, unspecified; B18.2 Chronic viral hepatitis C; D63.1 Anemia in chronic kidney disease; E55.9 Vitamin D deficiency, unspecified; E78.5 Hyperlipidemia, unspecified; F32.9 Major depressive disorder, single episode, unspecified; K21.9 Gastro-esophageal reflux disease without esophagitis; N25.81 Secondary hyperparathyroidism of renal origin; F14.10 Cocaine abuse, uncomplicated; I16.0 Hypertensive urgency; F17.200 Nicotine dependence, unspecified, uncomplicated; N18.4 Chronic kidney disease, stage 4 (severe); F10.21 Alcohol dependence, in remission; Z91.19 Patient's noncompliance with other medical treatment and regimen
CPT/HCPCS: 36415; 36556; 71010; 72100; 74176; 76770; 76937; 77001; 80053; 80074; 81001; 82150; 82306; 82570; 83690; 83935; 83970; 84100; 84133; 84300; 85025; 85610; 85730; 86850; 86900; 86901; 86920; 90935; 96361; 96365; 96372; 96375; 99284; 99291

== ENCOUNTER 2016-12-03 12:24 | Emergency (ER) | payer MEDICARE ==
[2016-12-03] MEDS ORDERED: ONDANSETRON ODT 4 MG TAB PO STA (12:40)
[2016-12-03 13:30] LABS: Aty Lym Flag Slight; CH 31.6; CHCM 32.3; HCT 25.3 % (39.0-53.0); HDW 3.17; HGB 8.2 gm/dL (13.0-17.5); MCH 31.7 pg (25.0-35.0); MCHC 32.2 g/dL (31.0-37.0); MCV 98.5 fL (80.0-100.0); Mean Platelet Volume 7.2; RBC 2.57 m/uL (4.30-5.90); RDW 15.2 % (11.5-15.5); WBC 6.5 k/uL (3.8-10.6); WBC (Perox) 6.68
[2016-12-03 13:37] LABS: Partial Thromboplastin Time 24.2 sec (22.0-30.0); Prothrombin Time 10.3 sec (9.0-12.0)
[2016-12-03 13:38] LABS: Add Differential Manual Differential
[2016-12-03 13:39] LABS: Calcium 8.1 mg/dL (8.4-10.2); Potassium 3.9 mmol/L (3.5-5.1); Total Bilirubin 0.4 mg/dL (0.2-1.3); Total Protein 6.1 g/dL (6.3-8.2)
[2016-12-03 13:48] LABS: Manual Review Performed; Nucleated Red Blood Cells 0 /100 WBC (0-0); Total Cells Counted 100
[2016-12-03 14:03] VITALS: RESP 18
--- NOTE | 2016-12-03 14:05 | ED ---
Recheck HPI - General Chief Complaint: Recheck/Abnormal Lab/Rx Stated Complaint: Profuse bleeding right groin Time Seen by Provider: 12/03/16 12:24 Source: patient, RN notes reviewed, old records reviewed Mode of arrival: wheelchair Limitations: no limitations - History of Present Illness Initial Comments: This is a 66-year-old male with a recent diagnosis of renal failure who just had a right chest wall catheter placed for dialysis who was discharged this morning after a right groin central line was removed. He apparently had rested on the floor for over an hour before being discharged was subsequently the patient was found lying on the floor at the [facility] entrance of this hospital with bleeding from the site. Patient was brought down to the emergency department for evaluation. Pressure was held by bystanders. Patient denies any chest pain shortness breath fevers chills or sweats. He does state he bled a lot. Complaint: wound re-check - Related Data Home Medications Medication Instructions Recorded Confirmed No Known Home Medications [No 12/03/16 12/03/16 Known Home Medications] Allergies Allergy/AdvReac Type Severity Reaction Status Date / Time aspirin AdvReac Nausea & Verified 12/03/16 13:18 Vomiting Review of Systems ROS Statement: Those systems with pertinent positive or pertinent negative responses have been documented in the HPI. ROS Other: All systems not noted in ROS Statement are negative. Past Medical History Past Medical History: Hyperlipidemia, Renal Disease Additional Past Medical History / Comment(s): "spot on liver" History of Any Multi-Drug Resistant Organisms: None Reported Past Surgical History: Orthopedic Surgery Additional Past Surgical History / Comment(s): 07/01/16 NICO. Past Anesthesia/Blood Transfusion Reactions: No Reported Reaction Past Psychological History: Bipolar, Depression Additional Psychological History / Comment(s): Pt resides with one of his brothers. He does not drive. Smoking Status: Current every day smoker Past Alcohol Use History: Occasional Additional Past Alcohol Use History / Comment(s): Pt started smoking around age 7 or 8 yrs. He drinks on a daily basis-brother states he is an alcoholic. Past Drug Use History: None Reported Additional Drug Use History / Comment(s): Pt states he uses crack cocaine approx 2 weeks ago - Past Family History Father Additional Family Medical History / Comment(s): Father was an alcoholic and of this at the age of 44yrs. Mother Family Medical History: No Reported History Additional Family Medical History / Comment(s): Mother is 88yrs old and healthy. Brother(s) Family Medical History: Diabetes Mellitus General Exam - General Exam Comments Initial Comments: This is a well-developed well-nourished awake alert anxious male he was actively vomiting upon arrival. Limitations: no limitations General appearance: alert, anxious, in distress Head exam: Present: atraumatic, normocephalic, normal inspection Eye exam: Present: normal appearance, PERRL, EOMI. Absent: scleral icterus, conjunctival injection, periorbital swelling ENT exam: Present: normal exam, mucous membranes moist Neck exam: Present: normal inspection. Absent: tenderness, meningismus, lymphadenopathy Respiratory exam: Present: normal lung sounds bilaterally, other (There is a dialysis catheter right chest no evidence of dehiscence or infection). Absent: respiratory distress, wheezes, rales, rhonchi, stridor Cardiovascular Exam: Present: regular rate, normal rhythm, normal heart sounds. Absent: systolic murmur, diastolic murmur, rubs, gallop, clicks GI/Abdominal exam: Present: soft, normal bowel sounds. Absent: distended, tenderness, guarding, rebound, rigid Rectal exam: Present: deferred Extremities exam: Present: full ROM, other (Examination the right groin after pressure reveals the central line site no pulsations no evidence of active bleeding at this time pressure still being held.) Neurological exam: Present: alert, oriented X3, CN II-XII intact Psychiatric exam: Present: normal affect, normal mood Skin exam: Present: warm, dry, normal color. Absent: rash Course Vital Signs 12/03/16 12/03/16 12/03/16 12:30 13:32 14:00 Temperature 97.5 F L Pulse Rate 97 81 83 Respiratory 18 20 18 Rate Blood Pressure 141/94 104/69 112/72 O2 Sat by Pulse 96 99 Oximetry 12/03/16 15:00 Temperature Pulse Rate 71 Respiratory 18 Rate Blood Pressure 99/56 O2 Sat by Pulse 94 L Oximetry Medical Decision Making - Medical Decision Making The patient was observed for a time no further bleeding was experienced is able ambulate is able to get up he will be discharged is a follow-up as planned originally today. - Lab Data Result diagrams: 12/03/16 12:55 12/03/16 12:55 Lab Results 12/03/16 12/03/16 12/03/16 Range/Units 12:55 12:55 12:55 WBC 6.5 (3.8-10.6) k/uL RBC 2.57 L (4.30-5.90) m/uL Hgb 8.2 L (13.0-17.5) gm/dL Hct 25.3 L (39.0-53.0) % MCV 98.5 (80.0-100.0) fL MCH 31.7 (25.0-35.0) pg MCHC 32.2 (31.0-37.0) g/dL RDW 15.2 (11.5-15.5) % Plt Count 207 (150-450) k/uL Neutrophils % (Manual) 51.0 % Band Neutrophils % 1.0 % Lymphocytes % (Manual) 34.0 % Monocytes % (Manual) 10.0 % Eosinophils % (Manual) 4.0 % Neutrophils # (Manual) 3.4 (1.3-7.7) k/uL Lymphocytes # (Manual) 2.2 (1.0-4.8) k/uL Monocytes # (Manual) 0.7 (0-1.0) k/uL Eosinophils # (Manual) 0.3 (0-0.7) k/uL Nucleated RBCs 0 (0-0) /100 WBC Manual Slide Review Performed Anisocytosis (manual) Present PT 10.3 (9.0-12.0) sec INR 1.0 (<1.1) APTT 24.2 (22.0-30.0) sec Sodium (137-145) mmol/L Potassium (3.5-5.1) mmol/L Chloride (98-107) mmol/L Carbon Dioxide (22-30) mmol/L Anion Gap mmol/L BUN (9-20) mg/dL Creatinine (0.66-1.25) mg/dL Est GFR (MDRD) Af Amer (>60 ml/min/1.73 sqM) Est GFR (MDRD) Non-Af (>60 ml/min/1.73 sqM) Glucose (74-99) mg/dL Calcium (8.4-10.2) mg/dL Total Bilirubin (0.2-1.3) mg/dL AST (17-59) U/L ALT (21-72) U/L Alkaline Phosphatase (38-126) U/L Total Protein (6.3-8.2) g/dL Albumin (3.5-5.0) g/dL Blood Type O Positive Blood Type Recheck No Antibody Screen NEGATIVE Spec Expiration Date 12/06/2016 - 235412/03/16 Range/Units 12:55 WBC (3.8-10.6) k/uL RBC (4.30-5.90) m/uL Hgb (13.0-17.5) gm/dL Hct (39.0-53.0) % MCV (80.0-100.0) fL MCH (25.0-35.0) pg MCHC (31.0-37.0) g/dL RDW (11.5-15.5) % Plt Count (150-450) k/uL Neutrophils % (Manual) % Band Neutrophils % % Lymphocytes % (Manual) % Monocytes % (Manual) % Eosinophils % (Manual) % Neutrophils # (Manual) (1.3-7.7) k/uL Lymphocytes # (Manual) (1.0-4.8) k/uL Monocytes # (Manual) (0-1.0) k/uL Eosinophils # (Manual) (0-0.7) k/uL Nucleated RBCs (0-0) /100 WBC Manual Slide Review Anisocytosis (manual) PT (9.0-12.0) sec INR (<1.1) APTT (22.0-30.0) sec Sodium 136 L (137-145) mmol/L Potassium 3.9 (3.5-5.1) mmol/L Chloride 101 (98-107) mmol/L Carbon Dioxide 25 (22-30) mmol/L Anion Gap 10 mmol/L BUN 15 (9-20) mg/dL Creatinine 2.71 H (0.66-1.25) mg/dL Est GFR (MDRD) Af Amer 29 (>60 ml/min/1.73 sqM) Est GFR (MDRD) Non-Af 24 (>60 ml/min/1.73 sqM) Glucose 120 H (74-99) mg/dL Calcium 8.1 L (8.4-10.2) mg/dL Total Bilirubin 0.4 (0.2-1.3) mg/dL AST 62 H (17-59) U/L ALT 68 (21-72) U/L Alkaline Phosphatase 237 H (38-126) U/L Total Protein 6.1 L (6.3-8.2) g/dL Albumin 3.0 L (3.5-5.0) g/dL Blood Type Blood Type Recheck Antibody Screen Spec Expiration Date - Radiology Data Radiology results: report reviewed (Ultrasound shows no evidence of acute findings.), image reviewed Disposition Clinical Impression: Bleeding at insertion site, Renal failure Disposition: HOME SELF-CARE Condition: Good Instructions: Chronic Kidney Disease (ED) Additional Instructions: Keep the IV site clean and dry continue with your follow-up as planned Referrals: Justin Romano MD [Primary Care Provider] - 1-2 days
--- NOTE | 2016-12-03 15:18 | US ---
EXAMINATION TYPE: US groin extremity RT DATE OF EXAM: 12/03/2016 COMPARISON: NONE CLINICAL HISTORY: Pain. Central line removed from right groin, profuse bleeding from right groin, fem stop in place RIght groin scanned, technical limitations due to fem stop placement. Artery and vein appear to have flow. No evidence of AV fistula or fluid collection as visualized IMPRESSION: 1. Limited exam demonstrates patency of the visualized vasculature.
[2016-12-03 17:00] VITALS: BP 109/68; PULSE 79; TEMP 98.8
== END 2016-12-03 17:02 | disposition home or self-care (01) ==
LOC: EC 12:24
DX: T82.838A Hemorrhage due to vascular prosthetic devices, implants and grafts, initial encounter (principal); N19 Unspecified kidney failure; F17.200 Nicotine dependence, unspecified, uncomplicated; Z99.2 Dependence on renal dialysis; Z88.6 Allergy status to analgesic agent
CPT/HCPCS: 36415; 80053; 85025; 85610; 85730; 86850; 86900; 86901; 99284

== ENCOUNTER 2017-01-03 00:38 | Inpatient (IN) | payer MEDICARE ==
[2017-01-03] MEDS ORDERED: SODIUM CHLORIDE 0.9% 1,000 ML IV STA (01:06)
[2017-01-03] MEDS ORDERED: ONDANSETRON 4 MG/2 ML VIAL IVP STA (01:06)
[2017-01-03] MEDS ORDERED: PANTOPRAZOLE 40 MG/10 ML VIAL IVP STA (01:06)
--- NOTE | 2017-01-03 01:49 | ED ---
Abdominal Pain HPI - General Chief Complaint: Abdominal Pain Stated Complaint: back pain Time Seen by Provider: 01/03/17 00:58 Source: patient Mode of arrival: wheelchair Limitations: no limitations - History of Present Illness Initial Comments: This 66-year-old white male presents with a complaint of some nausea vomiting as well as diarrhea. He states that this is been going on for the last 4 days. He feels very weak and fatigued. He states that it is difficult for him to even walk across the room. He was started on dialysis approximately 3-4 weeks ago and states that he missed his dialysis for this past week as he is having a hard time making it to dialysis due to his weakness. He denies any fevers or chills. He denies any chest pain but has had occasional shortness of breath. He complains of severe mid abdominal pain which seems to radiate into his back. He does have a history of pancreatitis. He relates that he drinks approximately one beer per day. He has not been able to eat or drink much for the past several days. No other complaints or modifying factors. - Related Data Home Medications Medication Instructions Recorded Confirmed HYDROcodone/APAP 10-325MG [[place] 1 tab PO QID PRN 01/03/17 01/03/17 10-325] Allergies Allergy/AdvReac Type Severity Reaction Status Date / Time aspirin AdvReac Nausea & Verified 01/03/17 00:46 Vomiting Review of Systems ROS Statement: Those systems with pertinent positive or pertinent negative responses have been documented in the HPI. ROS Other: All systems not noted in ROS Statement are negative. Past Medical History Past Medical History: Dialysis, Hyperlipidemia, Hypertension, Renal Disease Additional Past Medical History / Comment(s): "spot on liver" History of Any Multi-Drug Resistant Organisms: None Reported Past Surgical History: Orthopedic Surgery Additional Past Surgical History / Comment(s): 07/01/16 NICO. Past Anesthesia/Blood Transfusion Reactions: No Reported Reaction Past Psychological History: Bipolar, Depression Smoking Status: Current every day smoker Past Alcohol Use History: Occasional Past Drug Use History: None Reported - Past Family History Father Additional Family Medical History / Comment(s): Father was an alcoholic and of this at the age of 44yrs. Mother Family Medical History: No Reported History Additional Family Medical History / Comment(s): Mother is 88yrs old and healthy. Brother(s) Family Medical History: Diabetes Mellitus General Exam - General Exam Comments Initial Comments: GENERAL: The patient is well nourished and well hydrated. VITAL SIGNS: Heart rate, blood pressure, respiratory rate reviewed as recorded in nurse's notes. EYES: Pupils are round and reactive. Extraocular movements are intact. No conjunctival / lid redness or swelling. ENT: No external evidence of injury, swelling, or ecchymosis. Airway is patent. Throat is clear. NECK: Nontender. No swelling or evidence of injury. No subcutaneous emphysema. Trachea is midline. No thyroid mass. HEART: Regular rate and rhythm. Good peripheral pulses. LUNGS/CHEST: Breath sounds clear and equal bilaterally. No rales, rhonchi, or wheezes. No ecchymosis, subcutaneous emphysema, or tenderness. He does have a dialysis port coming from his right chest. ABDOMEN: There is tenderness noted to the mid abdomen. No palpable masses or organomegaly. No peritoneal signs. No abdominal wall swelling or ecchymosis. EXTREMITIES: No extremity tenderness. Normal muscle tone and function. No thoracolumbar tenderness. NEUROLOGIC: Sensation is grossly intact. Cranial nerve exam reveals face is symmetrical, tongue is midline, speech is clear. SKIN: No abrasions or ecchymosis is noted. No induration or masses noted. PSYCHIATRIC: Alert and oriented. Appropriate behavior and judgment. Limitations: no limitations Course Vital Signs 01/03/17 01/03/17 01/03/17 00:43 01:46 02:46 Temperature 97.0 F L Pulse Rate 89 90 84 Respiratory 18 20 18 Rate Blood Pressure 145/80 157/93 169/100 O2 Sat by Pulse 100 99 Oximetry 01/03/17 03:46 Temperature Pulse Rate 88 Respiratory 18 Rate Blood Pressure 165/87 O2 Sat by Pulse 99 Oximetry Medical Decision Making - Medical Decision Making The patient was seen and examined. All diagnostics were reviewed. An EKG shows a normal sinus rhythm at a rate of 85. There is no acute ST-T wave changes identified. The SD interval is 160, the QRS duration is 80, and the QTc interval is 490. An IV is started and he is mildly hydrated. He receives some Zofran for his nausea. He also receives Dilaudid for his abdominal pain. He is feeling much improved on recheck. His acute abdominal series x-ray does not show any acute significant abnormalities. His laboratory has significant abnormalities including a severely elevated BUN and creatinine as well as an elevated potassium. His pancreatic studies were significantly elevated as well. He has some mild anemia. His CO2 is significantly decreased. 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 He also has missed his dialysis this past week. He received some insulin as well as some glucose and Kayexalate for his hyperkalemia. It is felt as though he would require admission to the hospital and will require dialysis this morning as well. He is agreeable to this plan. Case will be discussed with internal medicine in the near future. 30 minutes of critical care time is utilized and the treatment of the patient. - Lab Data Result diagrams: 01/03/17 02:52 01/03/17 02:52 Lab Results 01/03/17 01/03/17 01/03/17 Range/Units 02:52 02:52 02:52 WBC 7.9 (3.8-10.6) k/uL RBC 3.30 L (4.30-5.90) m/uL Hgb 10.7 L (13.0-17.5) gm/dL Hct 31.8 L (39.0-53.0) % MCV 96.4 (80.0-100.0) fL MCH 32.3 (25.0-35.0) pg MCHC 33.5 (31.0-37.0) g/dL RDW 14.7 (11.5-15.5) % Plt Count 306 (150-450) k/uL Neutrophils % 79 % Lymphocytes % 15 % Monocytes % 4 % Eosinophils % 0 % Basophils % 0 % Neutrophils # 6.2 (1.3-7.7) k/uL Lymphocytes # 1.2 (1.0-4.8) k/uL Monocytes # 0.3 (0-1.0) k/uL Eosinophils # 0.0 (0-0.7) k/uL Basophils # 0.0 (0-0.2) k/uL PT 11.3 (9.0-12.0) sec INR 1.1 (<1.2) APTT 26.3 (22.0-30.0) sec Sodium 132 L (137-145) mmol/L Potassium 6.4 H* (3.5-5.1) mmol/L Chloride 98 (98-107) mmol/L Carbon Dioxide 6 L* (22-30) mmol/L Anion Gap 28 mmol/L BUN 112 H* (9-20) mg/dL Creatinine 14.00 H* (0.66-1.25) mg/dL Est GFR (MDRD) Af Amer 4 (>60 ml/min/1.73 sqM) Est GFR (MDRD) Non-Af 4 (>60 ml/min/1.73 sqM) Glucose 67 L (74-99) mg/dL Calcium 7.7 L (8.4-10.2) mg/dL Total Bilirubin 0.3 (0.2-1.3) mg/dL AST 32 (17-59) U/L ALT 48 (21-72) U/L Alkaline Phosphatase 149 H (38-126) U/L Total Protein 7.2 (6.3-8.2) g/dL Albumin 4.0 (3.5-5.0) g/dL Amylase 256 H (30-110) U/L Lipase 1437 H (23-300) U/L Disposition Clinical Impression: Abdominal pain, Nausea and vomiting, Diarrhea, Weakness, Fatigue, Hypertension , Hyperkalemia, Acute on chronic renal failure, Pancreatitis, Anemia, Acidosis Disposition: ADMITTED IP TO THIS [facility] Condition: Serious Time of Disposition: 04:16 Decision Date: 01/03/17 Decision Time: 04:16
--- NOTE | 2017-01-03 02:08 | XR ---
EXAM: XR Abdomen Complete With XR Chest CLINICAL HISTORY: Reason: abd pain and sob TECHNIQUE: Frontal view of the chest, frontal view of the abdomen/pelvis and upright view of the abdomen. COMPARISON: 11/28/16 portable chest, 11/24/[address] abdomen and pelvis. FINDINGS: Lungs: Stable. No consolidation. Pleural space: Stable. No effusion or pneumothorax. Heart: Stable. No cardiomegaly. Mediastinum: Stable, within normal limits. Intraperitoneal space: No free air. Gastrointestinal tract: Unremarkable. No dilated bowel loops or air- fluid levels are seen. Bones/joints: There are again degenerative changes with slight rightward curvature of the lumbar spine. Vasculature: Scattered vascular calcifications within the pelvis and right perineum, stable. Tubes, lines and devices: Right IJ catheter again present extending into the SVC. IMPRESSION: 1. No new acute intrathoracic abnormality. 2. No specific findings of intestinal obstruction or perforation seen. Comment: The findings could be correlated and followed clinically to guide further follow-up as clinically indicated.
[2017-01-03] MEDS ORDERED: HYDROmorphone 1 MG/ML 1 ML SYRINGE IM STA (02:38)
[2017-01-03] MEDS ORDERED: HYDROmorphone 1 MG/ML 1 ML SYRINGE IVP STA ×2 (02:54→05:10)
[2017-01-03 03:18] LABS: Calcium 7.7 mg/dL (8.4-10.2); Total Bilirubin 0.3 mg/dL (0.2-1.3); Total Protein 7.2 g/dL (6.3-8.2)
[2017-01-03 03:21] LABS: INR 1.1 (<1.2); Partial Thromboplastin Time 26.3 sec (22.0-30.0); Prothrombin Time 11.3 sec (9.0-12.0)
[2017-01-03 03:23] LABS: Basophils % (A) 0 %; CH 32.8; CHCM 34.2; Eosinophils % (A) 0 %; HCT 31.8 % (39.0-53.0); HGB 10.7 gm/dL (13.0-17.5); Luc # (Auto) 0.12; Luc % (Auto) 2; Lymphocytes # (A) 1.2 k/uL (1.0-4.8); Lymphocytes % (A) 15 %; MCH 32.3 pg (25.0-35.0); MCHC 33.5 g/dL (31.0-37.0); MCV 96.4 fL (80.0-100.0); Monocytes # (A) 0.3 k/uL (0-1.0); Monocytes % (A) 4 %; Neutrophils # (A) 6.2 k/uL (1.3-7.7); Neutrophils % (A) 79 %; RDW 14.7 % (11.5-15.5); WBC 7.9 k/uL (3.8-10.6); WBC (Perox) 8.21
[2017-01-03 03:26] LABS: Potassium 6.4 mmol/L (3.5-5.1)
[2017-01-03] MEDS ORDERED: SODIUM POLYSTYRENE SULFONATE 15 GM/60 ML BOTTLE PO ONE (03:55)
[2017-01-03] MEDS ORDERED: ALBUTEROL NEB (CONC) 2.5 MG/0.5 ML INHALATION ONE (03:55)
[2017-01-03] MEDS ORDERED: INSULIN REGULAR 100 UNIT/ML VIAL IV ONE (03:55)
[2017-01-03] MEDS ORDERED: NALOXONE 0.4 MG/ML 1 ML VIAL IV PRN (04:18)
[2017-01-03] MEDS ORDERED: ONDANSETRON 4 MG/2 ML VIAL IVP PRN (04:18)
[2017-01-03] MEDS ORDERED: ACETAMINOPHEN TAB 325 MG TAB PO PRN (04:18)
[2017-01-03] MEDS: DEXTROSE 50%-WATER 50 ML SYRINGE IVP ONE ×2 (04:19→06:25)
[2017-01-03] MEDS ORDERED: METOCLOPRAMIDE 5 MG/ML 2 ML VIAL IVP PRN (04:22)
[2017-01-03] MEDS ORDERED: DEXTROSE 50%-WATER 50 ML SYRINGE IVP ONE (05:24)
[2017-01-03 05:32] LABS: Glucose,Whole Blood 30 mg/dL (75-99)
[2017-01-03 05:32] LABS: Glucose,Whole Blood 203 mg/dL (75-99)
[2017-01-03 05:52] LABS: Glucose,Whole Blood 93 mg/dL (75-99)
[2017-01-03 06:21] LABS: Glucose,Whole Blood 41 mg/dL (75-99)
[2017-01-03] MEDS ORDERED: DEXTROSE 5%-0.45% NACL 1,000 ML IV STA (06:30)
[2017-01-03 06:40] LABS: Glucose,Whole Blood 184 mg/dL (75-99)
[2017-01-03 07:05] LABS: Glucose,Whole Blood 143 mg/dL (75-99)
[2017-01-03 07:57] VITALS: BMI 21.4
[2017-01-03] MEDS: ENOXAPARIN 30 MG/0.3 ML SYRINGE SQ SCH (08:21)
[2017-01-03] MEDS: PANTOPRAZOLE 40 MG/10 ML VIAL IV SCH (08:22)
[2017-01-03] MEDS: HYDROmorphone 1 MG/ML 1 ML SYRINGE IV PRN ×5 (08:22→21:34)
--- NOTE | 2017-01-03 08:47 | P.NPCON ---
History of Present Illness - Reason for Consult end stage renal disease - History of Present Illness Reason for consultation: End-stage renal disease History of present illness: Patient is a 66-year-old male seen in renal consultation for end-stage renal disease. He is maintained on hemodialysis on a Thursday schedule via permacatheter. Patient's had chronic kidney disease stage V for several years but was refusing renal replacement therapy. He agreed to to start and has been on hemodialysis for about a month now. Patient states he missed the last 3 treatments of hemodialysis due to generalized weakness. Patient states he's been having intermittent nausea vomiting as well as diarrhea for the last 4-5 days. He was also having abdominal pain which is improved. His potassium level was 6.4 which was medically treated and repeat potassium level was 5.0. He's also noted to be extremely acidotic with bicarb level of 6. States he had 1 bowel movement this morning. Denies any melena or hematochezia. Denies chest pain or shortness of breath. Has not been able to tolerate oral intake for the last 1 week or so. He is also noted to have acute pancreatitis with lipase level of 1437. Vital signs are stable. General: The patient appeared well nourished and normally developed. HEENT: Head exam is unremarkable. Neck is without jugular venous distension. LUNGS: Lungs are clear to auscultation and percussion. Breath sounds decreased. HEART: Rate and Rhythm are regular. First and second heart sounds normal. No murmurs, rubs or gallops. ABDOMEN: Abdominal exam reveals normal bowel sounds. Non-tender and non- distended. EXTREMITITES: No clubbing, cyanosis, or edema. Past Medical History Past Medical History: Dialysis, Hyperlipidemia, Hypertension, Renal Disease Additional Past Medical History / Comment(s): "spot on liver" History of Any Multi-Drug Resistant Organisms: None Reported Past Surgical History: Orthopedic Surgery Additional Past Surgical History / Comment(s): 07/01/16 NICO. Past Anesthesia/Blood Transfusion Reactions: No Reported Reaction Past Psychological History: Bipolar, Depression Additional Psychological History / Comment(s): Pt resides with one of his brothers. He does not drive. Smoking Status: Current every day smoker - Past Family History Father Additional Family Medical History / Comment(s): Father was an alcoholic and of this at the age of 44yrs. Mother Family Medical History: No Reported History Additional Family Medical History / Comment(s): Mother is 88yrs old and healthy. Brother(s) Family Medical History: Diabetes Mellitus Medications and Allergies Home Medications Medication Instructions Recorded Confirmed Type HYDROcodone/APAP 10-325MG [[place] 1 tab PO QID PRN 01/03/17 01/03/17 History 10-325] Allergies Allergy/AdvReac Type Severity Reaction Status Date / Time aspirin AdvReac Nausea & Verified 01/03/17 00:46 Vomiting Physical Exam Vitals: Vital Signs Temp Pulse Pulse Resp BP BP Pulse Ox 01/03/17 07:13 97.1 F L 80 18 120/73 99 01/03/17 06:19 80 16 120/73 99 01/03/17 05:20 102 H 18 115/99 99 01/03/17 05:05 84 01/03/17 04:37 98.5 F 75 18 137/75 97 01/03/17 03:46 88 18 165/87 99 01/03/17 02:46 84 18 169/100 99 01/03/17 01:46 90 20 157/93 01/03/17 00:43 97.0 F L 89 18 145/80 100 Intake and Output 01/02/17 01/03/17 01/03/17 22:59 06:59 14:59 Other: # Voids 1 Weight 62 kg Results - Lab Results Most recent lab results Calcium 7.7 mg/dL (8.4-10.2) L 01/03/17 02:52 01/03/17 02:52 01/03/17 05:29 Assessment and Plan Plan: Assessment: #1. End-stage renal disease maintained on hemodialysis on a Thursday schedule a permacath. #2. Noncompliance with hemodialysis as an outpatient. Patient missed the last 3 treatments of hemodialysis prior to admission. #3. Hyperkalemia secondary to noncompliance with dialysis and severe robotic acidosis. #4. Anion gap metabolic acidosis secondary to diarrhea as well as chronic kidney disease. #5. Acute pancreatitis. #6. History of hepatitis C. Plan: Hemodialysis today with low potassium bath with goal 1 L ultrafiltration. Hep-Lock IV fluids once starts tolerating oral intake. Start oral sodium bicarbonate supplementation. Check phosphorus level. Currently on clear liquid diet. Should be maintained on a low potassium diet once starts tolerating solid foods. Thank you for the consultation. I will continue to follow the patient with you during his hospital stay.
[2017-01-03] MEDS ORDERED: HEPARIN SODIUM,PORCINE 5,000 UNIT/ML 1 ML VIAL ONE (09:00)
[2017-01-03] MEDS ORDERED: ENOXAPARIN 40 MG/0.4 ML SYRINGE SQ SCH (09:00)
[2017-01-03] MEDS: SODIUM BICARBONATE TAB 650 MG TAB PO SCH ×4 (09:08→21:35)
[2017-01-03 10:55] LABS: Appearance,Urine Clear (Clear); Bacteria,Urine Occasional /hpf; Bilirubin,Urine Negative (Negative); Glucose,Urine (UA) Trace (Negative); Ketones,Urine Negative (Negative); Leukocyte Esterase,Urine Small (Negative); Nitrite,Urine Negative (Negative); Particle Count 3623; Protein,Urine 1+ (Negative); RBC,Urine <1 /hpf (0-5); Specific Gravity,Urine 1.005 (1.001-1.035); Squamous Epithelial Cell,Urine <1 /hpf (0-4); UA Billing (MACRO vs. MICRO) MICRO; Urobilinogen,Urine <2.0 mg/dL (<2.0); WBC,Urine 15 /hpf (0-5)
[2017-01-03] MEDS: CALCIUM ACETATE 667 MG CAP PO SCH ×2 (11:44→16:56)
[2017-01-03 11:45] LABS: Glucose,Whole Blood 122 mg/dL (75-99)
[2017-01-03 13:49] LABS: Hepatitis B Surface Ag Index 0.05
[2017-01-03 14:06] LABS: Hepatitis B Surface Antibody POSITIVE (Negative)
--- NOTE | 2017-01-03 14:24 | HP ---
I am covering for Dr. Justin Romano. Edgar Guillen is a 66-year-old male who presented to the ER with a 4-day history of decreased appetite, abdominal pain. Patient has a known history of endstage renal disease and stopped dialysis about 1 week ago. When he came into the ED he was found to have acute pancreatitis but also severe metabolic acidosis. He was admitted for further evaluation. He had been having some nausea and vomiting for 4 days along with diarrhea, felt weak and fatigued. He also had been drinking alcohol more than usual. His past medical history is positive for endstage renal disease on dialysis. History of spot on the liver. History of orthopedic surgery, transesophageal echo, bipolar disorder, hyperlipidemia, hypertension. Family history is positive for alcoholism in his father who at age 44. Mother is 88 years old and healthy. SOCIAL HISTORY: Patient is a current everyday smoker. He drinks alcohol, 1 to 2 beers per day. He does not use any cocaine or heroin. His medications prior to admission were acetaminophen with hydrocodone. On physical examination, he was undergoing dialysis. His respiratory rate was 18, pulse rate of 80, temperature 97.1, blood pressure 120/73. HEENT reveals pupils that are equal. Chest was clear. Cardiovascular system reveals an S1, S2. Abdomen is soft. There was no pedal edema. Glucose was 41 , white count 7.9, hemoglobin 10.7, sodium 132, potassium 5, chloride 98, bicarb 6, anion gap 28, BUN 112, creatinine of 14. Phosphorus was elevated, calcium was 7.7 and lipase was 1447 with an amylase of 256. IMPRESSION: 1. Acute pancreatitis. 2. Acute gastroenteritis. 3. Endstage renal disease on dialysis. 4. Severe metabolic acidosis which is multifactorial and has an anion gap. 5. History of alcohol use. 6. Medical debility. At this point in time, patient will be dialyzed. Will be kept n.p.o. Kept on GI and DVT prophylaxis. Keep him on sodium bicarbonate as well. Consult Nephrology. Depending on how he does, we shall make further changes to his care. ESTHER
[2017-01-04] MEDS: HYDROmorphone 1 MG/ML 1 ML SYRINGE IV PRN ×8 (00:34→23:19)
[2017-01-04] MEDS: PANTOPRAZOLE 40 MG/10 ML VIAL IV SCH (07:49)
[2017-01-04] MEDS: SODIUM BICARBONATE TAB 650 MG TAB PO SCH ×2 (07:49→20:17)
[2017-01-04] MEDS: ENOXAPARIN 30 MG/0.3 ML SYRINGE SQ SCH (07:49)
[2017-01-04] MEDS: CALCIUM ACETATE 667 MG CAP PO SCH ×3 (07:49→16:21)
[2017-01-04 08:25] LABS: Calcium 7.7 mg/dL (8.4-10.2); Potassium 4.8 mmol/L (3.5-5.1)
--- NOTE | 2017-01-04 08:37 | P.PN ---
Subjective Patient is seen in follow-up for end-stage renal disease. He is maintained on hemodialysis on a Thursday schedule for a permacath. Patient missed 3 treatments of hemodialysis prior to admission. He presented with nausea vomiting and diarrhea going on for about 4 days. He is now on a renal diet and denies any further vomiting or diarrhea. Denies chest pain or shortness of breath. He did undergo hemodialysis yesterday. Hyperkalemia has resolved. Vital signs are stable. General: The patient appeared well nourished and normally developed. HEENT: Head exam is unremarkable. Neck is without jugular venous distension. LUNGS: Lungs are clear to auscultation and percussion. Breath sounds decreased. HEART: Rate and Rhythm are regular. First and second heart sounds normal. No murmurs, rubs or gallops. ABDOMEN: Abdominal exam reveals normal bowel sounds. Non-tender and non- distended. No evidence of peritonitis. EXTREMITITES: No clubbing, cyanosis, or edema. Objective - Vital Signs Vital signs: Vital Signs Temp 97.1 F L 01/04/17 04:00 Pulse 85 01/04/17 04:00 Resp 18 01/04/17 04:00 BP 157/87 01/04/17 04:00 Pulse Ox 98 01/04/17 04:00 Intake & Output 01/03/17 01/04/17 01/04/17 18:59 06:59 18:59 Intake Total 200 Output Total 300 0 Balance -300 0 200 Weight 61.4 kg Intake: Oral 200 Output: Urine 300 0 Other: Voiding Method Urinal Urinal # Voids 1 0 - Labs CBC & Chem 7: 01/03/17 02:52 01/04/17 06:11 Labs: Abnormal Lab Results - Last 24 Hours (Table) 01/03/17 01/03/17 01/03/17 Range/Units 02:52 05:29 10:31 Carbon Dioxide (22-30) mmol/L BUN (9-20) mg/dL Creatinine (0.66-1.25) mg/dL POC Glucose (mg/dL) (75-99) mg/dL Calcium (8.4-10.2) mg/dL Phosphorus 12.5 H* (2.5-4.5) mg/dL Urine Protein 1+ H (Negative) Urine Glucose (UA) Trace H (Negative) Urine Blood Trace H (Negative) Ur Leukocyte Esterase Small H (Negative) Urine WBC 15 H (0-5) /hpf Urine Bacteria Occasional H (None) /hpf Hep B Core Total Ab Reactive H (Non-Reactive) 01/03/17 01/04/17 Range/Units 11:44 06:11 Carbon Dioxide 19 L (22-30) mmol/L BUN 53 H (9-20) mg/dL Creatinine 7.70 H* (0.66-1.25) mg/dL POC Glucose (mg/dL) 122 H (75-99) mg/dL Calcium 7.7 L (8.4-10.2) mg/dL Phosphorus (2.5-4.5) mg/dL Urine Protein (Negative) Urine Glucose (UA) (Negative) Urine Blood (Negative) Ur Leukocyte Esterase (Negative) Urine WBC (0-5) /hpf Urine Bacteria (None) /hpf Hep B Core Total Ab (Non-Reactive) Assessment and Plan Plan: Assessment: #1. End-stage renal disease maintained on hemodialysis on a Thursday schedule a permacath. #2. Noncompliance with hemodialysis as an outpatient. Patient missed the last 3 treatments of hemodialysis prior to admission. #3. Hyperkalemia secondary to noncompliance with dialysis and severe metabolic acidosis. Improved. #4. Anion gap metabolic acidosis secondary to diarrhea as well as chronic kidney disease. Improved. #5. Acute pancreatitis. #6. History of hepatitis C. #7. Chronic kidney disease mineral bone disease. Plan: Hemodialysis tomorrow with goal 1 L ultrafiltration. Maintain oral sodium bicarbonate supplementation. Add PhosLo with meals. Anticipate discharge soon.
[2017-01-04] MEDS ORDERED: NICOTINE 21MG/24HR PATCH TRANSDERM STA (11:15)
--- NOTE | 2017-01-04 15:33 | PN ---
DATE OF SERVICE: 01/04/17 The patient was seen again on 01/04/17. He had undergone dialysis yesterday and is doing significantly better overall. His appetite is starting to improve. On physical examination, his blood pressure is 150/88, respiratory rate is 18. Pulse rate 84. Temperature 97.9. O2 sat on room air 98%. HEENT reveals pupils are equal. Chest reveals occasional rhonchi. Cardiovascular system reveals an S1, S2. Abdomen is soft. There is no edema. Sodium 137. Potassium 4.8. Chloride 102. Bicarb 19. BUN 53, creatinine 7.7. IMPRESSION: 1. End stage renal disease, on dialysis for which the patient has had worsening renal function primarily because he missed his dialysis. 2. Acute pancreatitis and severe metabolic acidosis. 3. Acute gastroenteritis. Continue to optimize fluid status. Continue dialysis. Increase activity level. Depending on how he does, we shall make further changes to his care. ESTHER
[2017-01-05] MEDS: HYDROmorphone 1 MG/ML 1 ML SYRINGE IV PRN ×2 (02:20→06:35)
[2017-01-05] MEDS: CALCIUM ACETATE 667 MG CAP PO SCH ×3 (06:35→18:18)
[2017-01-05 07:00] LABS: Calcium 7.7 mg/dL (8.4-10.2); Potassium 5.6 mmol/L (3.5-5.1)
[2017-01-05] MEDS: HYDROcodone/APAP 10-325MG 1 EACH TAB PO SCH ×3 (10:09→22:06)
[2017-01-05] MEDS: PANTOPRAZOLE 40 MG TABLET PO SCH (10:10)
[2017-01-05] MEDS: SODIUM BICARBONATE TAB 650 MG TAB PO SCH ×2 (10:10→22:06)
[2017-01-05] MEDS: ENOXAPARIN 30 MG/0.3 ML SYRINGE SQ SCH (10:11)
--- NOTE | 2017-01-05 19:46 | PN ---
DATE OF SERVICE: 01/05/17 The patient was seen again on 01/05/17. He has hemodynamically been stable. He is less short of breath. His appetite is starting to improve. He is tolerating dialysis. On physical examination, his blood pressure is 161/83. Respiratory rate is 14. Pulse rate 80. Temperature 97.6. O2 sat on room air is 100%. HEENT is unremarkable. Chest reveals decreased breath sounds at the bases. Cardiovascular system reveals an S1, S2. Abdomen is soft. There is no pedal edema. Labs revealed a BUN 58, creatinine 8.66. Potassium 5.6. IMPRESSION: 1. End stage renal disease on dialysis with an acute exacerbation. 2. Acute pancreatitis. 3. Acute gastroenteritis. 4. Hyperkalemia. Continue dialysis. Adjust medications. Increase activity level. Discharge planning for tomorrow may be appropriate. MTDD
[2017-01-06] MEDS: HYDROcodone/APAP 10-325MG 1 EACH TAB PO PRN ×2 (02:26→07:50)
[2017-01-06] MEDS: CALCIUM ACETATE 667 MG CAP PO SCH (06:35)
[2017-01-06] MEDS: SODIUM BICARBONATE TAB 650 MG TAB PO SCH (07:50)
[2017-01-06] MEDS: PANTOPRAZOLE 40 MG TABLET PO SCH (07:51)
[2017-01-06] MEDS: HYDROcodone/APAP 10-325MG 1 EACH TAB PO SCH (07:51)
[2017-01-06] MEDS: ENOXAPARIN 30 MG/0.3 ML SYRINGE SQ SCH (07:52)
[2017-01-06 10:12] VITALS: BP 157/88; PULSE 74; RESP 18; TEMP 97.3
== END 2017-01-06 10:36 | disposition home or self-care (01) | DRG 438 ==
LOC: EC 00:38 → 6SEL 04:18
PROVIDERS: ADMIT Family Medicine; ATTEND Family Medicine
PROC: 5A1D60Z (ICD-10-PCS; principal; 2017-01-03)
DX: K85.20 Alcohol induced acute pancreatitis without necrosis or infection (principal); N18.6 End stage renal disease; N17.9 Acute kidney failure, unspecified; E87.2 Acidosis; I12.0 Hypertensive chronic kidney disease with stage 5 chronic kidney disease or end stage renal disease; E83.9 Disorder of mineral metabolism, unspecified; E87.5 Hyperkalemia; D64.9 Anemia, unspecified; E78.5 Hyperlipidemia, unspecified; F17.200 Nicotine dependence, unspecified, uncomplicated; K52.9 Noninfective gastroenteritis and colitis, unspecified; B19.20 Unspecified viral hepatitis C without hepatic coma; F32.9 Major depressive disorder, single episode, unspecified; Z99.2 Dependence on renal dialysis; Z88.6 Allergy status to analgesic agent; Z91.15 Patient's noncompliance with renal dialysis
CPT/HCPCS: 36415; 74022; 80048; 80053; 81001; 82150; 83690; 84100; 84132; 85025; 85610; 85730; 86704; 86706; 87340; 90935; 93005

== ENCOUNTER 2017-01-16 09:54 | Inpatient (IN) | payer MEDICARE ==
[2017-01-16] MEDS ORDERED: MORPHINE SULFATE 4 MG/ML SYRINGE IM STA (10:28)
--- NOTE | 2017-01-16 10:35 | ED ---
Back Pain HPI - General Chief Complaint: Back Pain/Injury Stated Complaint: Fall-Back Pain Source: patient Limitations: no limitations - History of Present Illness Initial Comments: 66-year-old Afro-[place]ian male with past medical history of hypertension, hyperlipidemia, renal disease on dialysis presented for evaluation of low back pain. He states that he was cleaning his gutters yesterday and lost his balance falling backward. He states that he landed on his sacrum and back. He was ambulatory at the scene and denies any loss of consciousness or hitting his head. He takes no anticoagulants. He states that he had an immediate limitation of activities due to the pain and denies lower extremity weakness, saddle anesthesia, bowel/bladder irregularities. Patient is unable to feel any irregularities to his back however he continues to have pain there that does not radiate down the legs. He is a dialysis patient and has a schedule of Thursday however he was unable to go to dialysis this morning at 6 AM due to the pain. He has no other complaints at this time. - Related Data Home Medications Medication Instructions Recorded Confirmed HYDROcodone/APAP 10-325MG [[place] 1 tab PO TID 01/03/17 01/16/17 10-325] Ibuprofen [Motrin] 200 - 400 mg PO Q6H PRN 01/16/17 01/16/17 Allergies Allergy/AdvReac Type Severity Reaction Status Date / Time aspirin AdvReac Nausea & Verified 01/16/17 10:06 Vomiting Review of Systems ROS Statement: Those systems with pertinent positive or pertinent negative responses have been documented in the HPI. ROS Other: All systems not noted in ROS Statement are negative. Constitutional: Denies: fever, chills Eyes: Denies: eye pain, vision change ENT: Denies: ear pain, throat pain Respiratory: Denies: cough, dyspnea Cardiovascular: Denies: chest pain, palpitations, syncope Endocrine: Denies: fatigue, polydipsia, polyuria Gastrointestinal: Denies: abdominal pain, nausea, vomiting, diarrhea, melena, hematochezia Genitourinary: Denies: urgency, dysuria, frequency, hematuria Musculoskeletal: Reports: back pain, arthralgia. Denies: myalgia Skin: Denies: rash, lesions Neurological: Denies: headache, weakness Psychiatric: Denies: anxiety, depression Hematological/Lymphatic: Denies: easy bleeding, easy bruising Past Medical History Past Medical History: Dialysis, Hyperlipidemia, Hypertension, Renal Disease Additional Past Medical History / Comment(s): "spot on liver" History of Any Multi-Drug Resistant Organisms: None Reported Past Surgical History: Orthopedic Surgery Additional Past Surgical History / Comment(s): 07/01/16 NICO. Past Anesthesia/Blood Transfusion Reactions: No Reported Reaction Past Psychological History: Bipolar, Depression Smoking Status: Current every day smoker - Past Family History Father Additional Family Medical History / Comment(s): Father was an alcoholic and of this at the age of 44yrs. Mother Family Medical History: No Reported History Additional Family Medical History / Comment(s): Mother is 88yrs old and healthy. Brother(s) Family Medical History: Diabetes Mellitus General Exam Limitations: no limitations General appearance: alert, in no apparent distress Head exam: Present: atraumatic, normocephalic, normal inspection Eye exam: Present: normal appearance, PERRL, EOMI. Absent: scleral icterus, conjunctival injection, periorbital swelling ENT exam: Present: normal exam, mucous membranes moist Neck exam: Present: normal inspection. Absent: tenderness, meningismus, lymphadenopathy Respiratory exam: Present: normal lung sounds bilaterally. Absent: respiratory distress, wheezes, rales, rhonchi, stridor Cardiovascular Exam: Present: regular rate, normal rhythm, normal heart sounds. Absent: systolic murmur, diastolic murmur, rubs, gallop, clicks GI/Abdominal exam: Present: soft, normal bowel sounds. Absent: distended, tenderness, guarding, rebound, rigid Rectal exam: Present: deferred Extremities exam: Present: normal inspection, full ROM, normal capillary refill. Absent: tenderness, pedal edema, joint swelling, calf tenderness Back exam: Present: normal inspection Neurological exam: Present: alert, oriented X3, CN II-XII intact. Absent: altered, motor sensory deficit, reflexes normal Psychiatric exam: Present: normal affect, normal mood Skin exam: Present: warm, dry, intact, normal color. Absent: rash Course Vital Signs 01/16/17 01/16/17 01/16/17 09:57 12:33 13:06 Temperature 97.5 F L 97.1 F L Pulse Rate 99 84 91 Respiratory 20 18 17 Rate Blood Pressure 224/107 208/114 204/106 O2 Sat by Pulse 100 99 99 Oximetry 01/16/17 01/16/17 13:46 13:50 Temperature Pulse Rate 81 79 Respiratory 17 15 Rate Blood Pressure 195/103 O2 Sat by Pulse 100 Oximetry Medical Decision Making - Medical Decision Making 66-year-old -Eth[place] male presented for evaluation of low back pain after falling from a ladder while cleaning the gutters to his house. He denies any loss of consciousness, head trauma, anticoagulation use, lower extremity weakness, saddle anesthesia, bowel or GI irregularities, or loss of motor/ sensation in the lower extremities. On physical examination he does have point tenderness to the lumbosacral area bilaterally and midline. There are no gross deformities noted. Patient has intact distal motor function and sensation at the first webspace of the foot bilaterally is within normal limits. We'll obtain CT head to confirm no latent bleed, CT of the lumbar and sacral spine to rule out fractures, and provide pain control IM. Patient does dialysis Thursday and missed his appointment this morning at 6 AM. We'll contact his dialysis center to reschedule dialysis for either today or tomorrow. Labs revealed significant hyperkalemia as well as acute on chronic renal failure. 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 The patient refused the albuterol however stating that it made him short of breath. Given the degree of his hyperkalemia a consult was placed for critical care as well. All consults were contacted directly and informed of the status of the patient had no further requests for given. The patient was reevaluated multiple times and had no change in his exam, remaining in no apparent distress. Admission order placed and bed request submitted. - Lab Data Result diagrams: 01/16/17 11:15 01/16/17 11:15 Lab Results 01/16/17 01/16/17 01/16/17 Range/Units 11:15 11:15 11:15 WBC 7.7 (3.8-10.6) k/uL RBC 3.03 L (4.30-5.90) m/uL Hgb 10.0 L (13.0-17.5) gm/dL Hct 29.8 L (39.0-53.0) % MCV 98.3 (80.0-100.0) fL MCH 33.1 (25.0-35.0) pg MCHC 33.6 (31.0-37.0) g/dL RDW 14.3 (11.5-15.5) % Plt Count 303 (150-450) k/uL Neutrophils % 80 % Lymphocytes % 14 % Monocytes % 3 % Eosinophils % 1 % Basophils % 0 % Neutrophils # 6.1 (1.3-7.7) k/uL Lymphocytes # 1.1 (1.0-4.8) k/uL Monocytes # 0.3 (0-1.0) k/uL Eosinophils # 0.1 (0-0.7) k/uL Basophils # 0.0 (0-0.2) k/uL Sodium 144 (137-145) mmol/L Potassium 7.1 H* (3.5-5.1) mmol/L Chloride 114 H (98-107) mmol/L Carbon Dioxide 10 L* (22-30) mmol/L Anion Gap 20 mmol/L BUN 108 H* (9-20) mg/dL Creatinine 13.44 H* (0.66-1.25) mg/dL Est GFR (MDRD) Af Amer 4 (>60 ml/min/1.73 sqM) Est GFR (MDRD) Non-Af 4 (>60 ml/min/1.73 sqM) Glucose 70 L (74-99) mg/dL Calcium 8.6 (8.4-10.2) mg/dL Phosphorus (2.5-4.5) mg/dL Magnesium (1.6-2.3) mg/dL Troponin I (0.000-0.034) ng/mL NT-Pro-B Natriuret Pep 3070 pg/mL 01/16/17 01/16/17 Range/Units 11:15 11:15 WBC (3.8-10.6) k/uL RBC (4.30-5.90) m/uL Hgb (13.0-17.5) gm/dL Hct (39.0-53.0) % MCV (80.0-100.0) fL MCH (25.0-35.0) pg MCHC (31.0-37.0) g/dL RDW (11.5-15.5) % Plt Count (150-450) k/uL Neutrophils % % Lymphocytes % % Monocytes % % Eosinophils % % Basophils % % Neutrophils # (1.3-7.7) k/uL Lymphocytes # (1.0-4.8) k/uL Monocytes # (0-1.0) k/uL Eosinophils # (0-0.7) k/uL Basophils # (0-0.2) k/uL Sodium (137-145) mmol/L Potassium (3.5-5.1) mmol/L Chloride (98-107) mmol/L Carbon Dioxide (22-30) mmol/L Anion Gap mmol/L BUN (9-20) mg/dL Creatinine (0.66-1.25) mg/dL Est GFR (MDRD) Af Amer (>60 ml/min/1.73 sqM) Est GFR (MDRD) Non-Af (>60 ml/min/1.73 sqM) Glucose (74-99) mg/dL Calcium (8.4-10.2) mg/dL Phosphorus 11.2 H* (2.5-4.5) mg/dL Magnesium 1.8 (1.6-2.3) mg/dL Troponin I 0.013 (0.000-0.034) ng/mL NT-Pro-B Natriuret Pep pg/mL 01/16/17 13:04 Normal sinus rhythm with a ventricular rate of 85, JANA 156, QRS 66, QT/QTC 362/4 :30. Does appear to be some early T-wave peaking in V2 through V6. Disposition Clinical Impression: Hyperkalemia, Acute on chronic renal failure Disposition: ADMITTED IP TO THIS [facility] Decision to Admit Reason: Admit from EC Decision Date: 01/16/17 Decision Time: 12:54
--- NOTE | 2017-01-16 11:22 | CT ---
EXAMINATION TYPE: CT brain lexy pike DATE OF EXAM: 01/16/2017 COMPARISON: Previous CT scan of the brain dated 07/11/2016. HISTORY: Fall yesterday from ladder. Complains of neck and low back pain CT DLP: 1332.9 mGycm Automated exposure control for dose reduction was used. TECHNIQUE: CT scan of the head and cervical spine are performed without contrast. FINDINGS: BRAIN: There are mild, generalized changes of sulcal prominence and ventriculomegaly, compatible with mild atrophic change. There is diffuse periventricular white matter lucency, compatible with chronic white matter ischemic change. There is no acute focal lesion, mass effect or midline shift identifie d. I do not see evidence of intracranial blood. Visualized portions of the paranasal sinuses and mastoids are clear. No depressed skull fracture is s een. The zygomatic arches are intact. The pterygoid plates are intact. IMPRESSION: 1. NO ACUTE INTRACRANIAL ABNORMALITY. 2. MILD ATROPHIC CHANGE. 3. CHRONIC WHITE MATTER ISCHEMIC CHANGE. CERVICAL SPINE: There are diffuse emphysematous changes throughout the lungs. There is an apical scar ring present bilaterally. Prevertebral soft tissues are normal. There is a reversal of the normal cervical lordosis. Alignment is normal. Atlantoaxial relationships are normal. There is diffuse disc space loss and hypertrophic spondylosis throughout the entire cervi bright spine. There is extensive uncovertebral joint disease. The facets are relatively normal. I do not see evidence of discal protrusion. No fracture is identified. There is a large-bore, double-lumen catheter in place via a right internal jugular approach. Its tip is not visualized. IMPRESSION: 1. NO ACUTE OSSEOUS LESION. 2. SEVERE DEGENERATIVE CHANGE. 3. EMPHYSEMATOUS CHANGE.
[2017-01-16 11:30] LABS: Basophils % (A) 0 %; CH 32.4; CHCM 33.1; Eosinophils # (A) 0.1 k/uL (0-0.7); Eosinophils % (A) 1 %; HCT 29.8 % (39.0-53.0); HDW 2.94; Luc # (Auto) 0.11; Luc % (Auto) 2; Lymphocytes # (A) 1.1 k/uL (1.0-4.8); Lymphocytes % (A) 14 %; MCH 33.1 pg (25.0-35.0); MCHC 33.6 g/dL (31.0-37.0); MCV 98.3 fL (80.0-100.0); Mean Platelet Volume 7.6; Monocytes # (A) 0.3 k/uL (0-1.0); Monocytes % (A) 3 %; Neutrophils # (A) 6.1 k/uL (1.3-7.7); Neutrophils % (A) 80 %; RBC 3.03 m/uL (4.30-5.90); RDW 14.3 % (11.5-15.5); WBC 7.7 k/uL (3.8-10.6); WBC (Perox) 8.53
--- NOTE | 2017-01-16 11:31 | CT ---
EXAMINATION TYPE: CT lumbar spine wo con, CT sacrum wo con DATE OF EXAM: 01/16/2017 COMPARISON: CT abdomen and pelvis 10/15/2016 HISTORY: 66-year-old male with fall yesterday from ladder. Patient complains of neck and low back miki n TECHNIQUE: Contiguous axial scanning of the lumbar spine followed by the sacrum without IV contrast. Coronal and sagittal reconstructions performed. CT DLP: 501.3 mGycm Automated exposure control for dose reduction was used. FINDINGS: LUMBAR SPINE: Incidental mild aneurysm of the aorta at the thoracoabdominal junction and 3.1 cm. Redemonstrated coarse calcifications in the region of the pancreatic head with a ductal prominence of the distal main pancreatic duct and enlargement of the pancreatic head measuring 3.7 cm AP. This is decreased 10/15/2016 where it measured 4.2 cm. However, inflammation was seen at that time. Small amy r splenule is noted. Left colonic diverticulosis. Vertebral body heights in the lumbar spine are maintained. There is straightening of the normal lumb ar lordosis. Some hypoplasia of the posterior aspect of the S1 vertebral body with overhanging of the posterior inferior L5 endplate. Moderate to severe multilevel disc/endplate degenerative change especially at L2-L3, L5-S1, and then at L3-L4 and L4-L5. There is significant loss of disc interspace particularly at the first 2 levels, scattered disc vacuum, endplate sclerosis, focal endplate erosions and Schmorl's nodes, and bulging d iscs. Facet arthropathy is present. At L1-L2, mild posterior disc bulge without canal or foraminal stenosis. L2-L3, there is diffuse disc bulge mildly narrowing the spinal canal. This also results in mild right and moderate left neuroforaminal stenosis. At L3-L4, diffuse disc bulge and facet degenerative change causing gxzb-ef-ucyhtuey left and mild rig ht neuroforaminal stenosis. Mild attenuation of the thecal sac without significant canal stenosis. At L4-L5, diffuse disc bulge with ligamentum flavum thickening and facet degenerative change. This ma terial may abuts both traversing L5 nerve roots. There is moderate right and anku-uc-xgdfadlf left ne uroforaminal stenosis with mild spinal canal stenosis. At L5-S1, disc osteophyte complex and facet degenerative change. Mild bilateral neural foraminal narr owing. No significant spinal canal stenosis. No acute fracture of the lumbar spine. SACRUM: Incidental prostatomegaly at 4.7 cm wide. Muscular compartment or bladder wall thickening. Patulous i nguinal canals. Mild degenerative changes of the hips. The SI joints are intact. No sacral or coccygeal fracture is seen. COMBINED IMPRESSION: LUMBAR SPINE: 1. MODERATE TO ADVANCED DISC/ENDPLATE DEGENERATIVE CHANGE, MOST SEVERE AT L2-L3 AND L5-S1. 2. BULGING DISKS AND FACET ARTHROPATHY CAUSE MILD SPINAL CANAL STENOSES AT L2-L3 AND L4-L5. 3. VARIABLE MILD TO MODERATE NEUROFORAMINAL STENOSES OUTLINED ABOVE. 4. NO VERTEBRAL COMPRESSION COLLAPSE, ACUTE FRACTURE, OR MALALIGNMENT. 5. INCIDENTAL FINDINGS: BULBOUS APPEARANCE TO THE PANCREATIC HEAD SEEN PREVIOUSLY ON 10/15/2016. FO LLOW-UP CLINICALLY INDICATED. THE OVERALL SIZE HAS NOT INCREASED. MILD AORTIC ANEURYSM AT THE THOR ACOLUMBAR JUNCTION OF 3.1 CM. LEFT COLONIC DIVERTICULOSIS. SACRUM: 1. NO SACRAL OR COCCYGEAL FRACTURE SEEN. 2. MILD PROSTATOMEGALY (4.7 CM WIDE). CIRCUMFERENTIAL BLADDER WALL THICKENING COULD REFLECT CYSTITIS OR WALL HYPERTROPHY FROM CHRONIC OUTLET OBSTRUCTION. CLINICALLY CORRELATE.
[2017-01-16 11:38] LABS: Calcium 8.6 mg/dL (8.4-10.2)
[2017-01-16 11:49] LABS: Potassium 7.1 mmol/L (3.5-5.1)
[2017-01-16] MEDS ORDERED: DEXTROSE 50%-WATER 50 ML SYRINGE IVP STA (11:56)
[2017-01-16] MEDS ORDERED: CALCIUM GLUCONATE 1,000 MG in SODIUM CHLORIDE 0.9% 100 ML IVPB ONE (11:56)
[2017-01-16] MEDS ORDERED: INSULIN REGULAR 100 UNIT/ML VIAL IV ONE (11:56)
[2017-01-16] MEDS: ALBUTEROL NEBULIZED 2.5 MG/3 ML INHALATION STA ×2 (12:24→12:26)
[2017-01-16] MEDS ORDERED: ONDANSETRON 4 MG/2 ML VIAL IVP PRN (12:49)
[2017-01-16] MEDS ORDERED: NALOXONE 0.4 MG/ML 1 ML VIAL IV PRN (12:49)
[2017-01-16] MEDS ORDERED: METOPROLOL TARTRATE 5 MG/5 ML VIAL IVP ONE (13:07)
[2017-01-16 13:31] LABS: Magnesium 1.8 mg/dL (1.6-2.3)
[2017-01-16 13:42] LABS: Phosphorous 11.2 mg/dL (2.5-4.5)
[2017-01-16 13:58] LABS: Glucose,Whole Blood 103 mg/dL (75-99)
[2017-01-16] MEDS: MORPHINE SULFATE 4 MG/ML SYRINGE IV PRN ×2 (14:12→20:00)
--- NOTE | 2017-01-16 14:59 | P.CNPUL ---
History of Present Illness Consult date: 01/16/17 Requesting physician: Justin Romano Reason for consult: other (ICU management) Chief complaint: Back pain History of present illness: This is a 66-year-old male being seen examined and evaluated in the intensive care unit today. This patient was at home cleaning his gutters must balance and fell backwards he landed on his sacrum and back. He denies any loss of consciousness or hitting his head. The patient does not take any anticoagulants. He continues to have dull ache in his back that radiates down his legs. This patient is a recent dialysis patient and was discharged approximately 10 days ago from the hospital and was scheduled to have dialysis on Wednesdays and Fridays. The patient has not gone to dialysis and upon workup in the emergency room he was noted to be hyperkalemic of 7.1 low CO2 of 10, BUN 108, creatinine 13.44 calcium 8.6 phosphorus 11.[address] of his lumbar spine, CT of the head and cervical spine, and CT of the sacrum failed to show any acute injury or processes. Nephrology has already been consult it in the patient will be undergoing dialysis immediately. We will obtain repeat labs postdialysis. Upon examination the patient's resting up in bed on room air he denies any cough or congestion or shortness of breath at this time. He does complain of some dull low back pain. Patient also in the ER was noted to have hypertensive urgency he was given Lopressor IV push which helped. Review of Systems 14 point review of systems was completed and is negative unless noted above in the HPI. Past Medical History Past Medical History: Dialysis, Hyperlipidemia, Hypertension, Renal Disease Additional Past Medical History / Comment(s): "spot on liver" History of Any Multi-Drug Resistant Organisms: None Reported Past Surgical History: Orthopedic Surgery Additional Past Surgical History / Comment(s): 07/01/16 NICO. Past Anesthesia/Blood Transfusion Reactions: No Reported Reaction Past Psychological History: Bipolar, Depression Smoking Status: Current every day smoker - Past Family History Father Additional Family Medical History / Comment(s): Father was an alcoholic and of this at the age of 44yrs. Mother Family Medical History: No Reported History Additional Family Medical History / Comment(s): Mother is 88yrs old and healthy. Brother(s) Family Medical History: Diabetes Mellitus Medications and Allergies Home Medications Medication Instructions Recorded Confirmed Type HYDROcodone/APAP 10-325MG [[place] 1 tab PO TID 01/03/17 01/16/17 History 10-325] Ibuprofen [Motrin] 200 - 400 mg PO Q6H PRN 01/16/17 01/16/17 History Allergies Allergy/AdvReac Type Severity Reaction Status Date / Time aspirin AdvReac Nausea & Verified 01/16/17 10:06 Vomiting Physical Exam Vitals: Vital Signs Temp Pulse Resp BP Pulse Ox 01/16/17 13:06 97.1 F L 91 17 204/106 99 01/16/17 12:33 84 18 208/114 99 01/16/17 09:57 97.5 F L 99 20 224/107 100 Intake and Output 01/15/17 01/16/17 01/16/17 22:59 06:59 14:59 Other: Weight 62.142 kg Patient Weight 01/17/17 06:59 Weight 62.142 kg GENERAL EXAM: Alert, active, comfortable in no apparent distress. HEAD: Normocephalic. EYES: Normal reaction of pupils, equal size. NOSE: Clear with pink turbinates. THROAT: No erythema or exudates. NECK: No masses, no JVD. CHEST: No chest wall deformity. LUNGS: Equal air entry with no crackles, wheeze, rhonchi or dullness. CVS: S1 and S2 normal with no audible mumurs, regular rhythm. ABDOMEN: No hepatosplenomegaly, normal bowel sounds, no guarding or rigidity. EXTREMITIES: No edema noted, pedal pulses palpable. SKIN: No rashes CENTRAL NERVOUS SYSTEM: No focal deficits, tone is normal in all 4 extremities. Results - Laboratory Findings CBC and BMP: 01/16/17 11:15 01/16/17 11:15 Abnormal lab findings: Abnormal Labs 01/16/17 01/16/17 01/16/17 11:15 11:15 11:15 RBC 3.03 L Hgb 10.0 L Hct 29.8 L Potassium 7.1 H* Chloride 114 H Carbon Dioxide 10 L* BUN 108 H* Creatinine 13.44 H* Glucose 70 L POC Glucose (mg/dL) Phosphorus 11.2 H* 01/16/17 13:55 RBC Hgb Hct Potassium Chloride Carbon Dioxide BUN Creatinine Glucose POC Glucose (mg/dL) 103 H Phosphorus Assessment and Plan Plan: Assessment Hyperkalemia Acute on chronic renal failure Alcohol abuse Back pain status post fall Medical debility Noncompliance with hemodialysis on the outpatient setting History of hepatitis C Plan Medications have been reviewed and will be continued as ordered. We suspect the patient's blood pressure will improve with dialysis treatments. Pain medications as ordered. Repeat labs after dialysis. Nephrology on consult and appreciate recommendations. Continue with pulmonary hygiene, coughing and deep breathing exercises, and supportive care. Supplemental oxygen to maintain oxygen saturations of 92% or better. Continue nebulizer treatments. GI prophylaxis with Pepcid and mechanical DVT prophylaxis. We will continue to monitor labs/results and adjust treatment as necessary. Further recommendations pending. I performed an examination of the patient and discussed their management with the nurse practitioner. I have reviewed the nurse practitioner's note and agree with the documented findings and plan of care.
[2017-01-16 21:49] LABS: Calcium 7.9 mg/dL (8.4-10.2); Potassium 3.4 mmol/L (3.5-5.1)
[2017-01-16 22:10] LABS: Magnesium 1.6 mg/dL (1.6-2.3); Phosphorous 3.8 mg/dL (2.5-4.5)
--- NOTE | 2017-01-16 22:41 | HP ---
CHIEF COMPLAINT: [id number] -[place] male with noncompliance, failing to take outpatient dialysis. Creatinine is up to 13. Potassium is over 7.0. He is admitted to the hospital, as he apparently fell backwards from a ladder, he states, while cleaning his gutters. He denies any loss of consciousness or hitting his head. He just has a dull ache in the back, radiates down his legs. He is supposed to get dialysis on Thursday, Thursday and Thursday. He never showed up. He had a CO2 of 10 in the ER and a potassium of 7.1 , BUN of 108 and creatinine 13.44. Calcium 8.6, phosphorus 11.2, magnesium 1.8. CT of the head, C-spine, lumbar spine and sacrum did not show any acute injuries. He is to be admitted to the ICU at this time due to renal failure and severe hyperkalemia and hypertensive emergency. REVIEW OF SYSTEMS: Negative except for what is mentioned in the HPI and musculoskeletal. The patient has poor ambulation. He walks with a cane. No idea how he could possibly climb a ladder or clean gutters, as he rents an apartment. Noncompliance, as mentioned above. He has a history of end-stage renal disease, hypertension, hyperlipidemia, renal disease, history of drug abuse in the past, orthopedic surgeries, a NICO in June of 2016, bipolar depression. Father was an alcoholic; at the age of 44. His mother is 88 and healthy. Brother with diabetes mellitus. HOME MEDICINES: 1. [place] 10/325 t.i.d. 2. Ibuprofen 200 to 400 every 6. ALLERGIES: PLEASE SEE CHART. CARDIOVASCULAR: S1, S2 without any murmurs, rubs or gallops. MUSCULOSKELETAL: He has 3.5/5 strength in his lower legs, 4/5 in his upper legs , his upper arms. Cervical and lumbar ( ) muscles. Fnlnkimi-dvb-kobnf positive in both legs to 60 degrees. PSYCH: Flat affect. NEURO: Cranial nerves are intact. OPHTHALMOLOGIC: Wears glasses. Pupils equal, round and reactive to light and accommodation. VASCULAR: Normal dorsalis pedis, posterior tibial, radial pulse. GI: Soft, non-tender. LABS: As mentioned above. ASSESSMENT: 1. Acute renal failure, acute on chronic end-stage renal failure. 2. Noncompliance with dialysis. 3. ( ) cervical and lumbar contusion. 4. Possible head injury with no loss of consciousness or mental status changes at this time. 5. Hypertension ( ). 6. History of lumbar disc disease. 7. Gait imbalance. PLAN: PT will be done. Dialysis will be restarted 3 times a week. Possible rehabilitation setting for 2 to 3 weeks to get him back on dialysis regimen. He will be taken out of the ICU once his severe hyperkalemia is improved with medications. Multiple medications are being given. Dialysis will be done. Lower the potassium level. Noncompliance will have to be dealt with with his guardian. JESUD
[2017-01-17] MEDS: MORPHINE SULFATE 4 MG/ML SYRINGE IV PRN ×6 (01:18→23:37)
[2017-01-17 05:18] LABS: Basophils % (A) 0 %; CH 33.2; CHCM 35.6; Eosinophils # (A) 0.1 k/uL (0-0.7); Eosinophils % (A) 1 %; HCT 23.3 % (39.0-53.0); HDW 2.92; Luc # (Auto) 0.03; Luc % (Auto) 0; Lymphocytes # (A) 0.6 k/uL (1.0-4.8); Lymphocytes % (A) 6 %; MCH 32.7 pg (25.0-35.0); MCHC 34.9 g/dL (31.0-37.0); MCV 93.7 fL (80.0-100.0); Mean Platelet Volume 7.3; Monocytes # (A) 0.3 k/uL (0-1.0); Monocytes % (A) 4 %; Neutrophils # (A) 8.3 k/uL (1.3-7.7); Neutrophils % (A) 89 %; RBC 2.49 m/uL (4.30-5.90); RDW 14.4 % (11.5-15.5); WBC 9.4 k/uL (3.8-10.6); WBC (Perox) 9.49
[2017-01-17 05:24] LABS: HGB 8.1 gm/dL (13.0-17.5)
[2017-01-17 05:38] LABS: Calcium 7.9 mg/dL (8.4-10.2)
[2017-01-17 06:08] LABS: Potassium 5.1 mmol/L (3.5-5.1)
[2017-01-17 06:09] LABS: Magnesium 1.6 mg/dL (1.6-2.3)
--- NOTE | 2017-01-17 08:53 | CONS ---
REASON FOR CONSULT: End-stage renal disease. HISTORY OF PRESENT ILLNESS: The patient is a 66-year-old male with history of end-stage renal disease on hemodialysis on a Thursday, Thursday, Thursday schedule. The patient did not come for dialysis as outpatient. He had actually fallen at home while cleaning the gutters. He was found to be severely acidotic at the time of admission. Patient has had his hemodialysis treatment yesterday and is scheduled for another treatment today. His potassium was 7.1 at the time of admission. It is at 5.1 today. PAST MEDICAL HISTORY: End-stage renal disease, recently started on dialysis, anemia of chronic disease, history of hypertension, dyslipidemia, osteoarthritis , bipolar disease. Social history is positive for smoking. No history of drug abuse or alcohol abuse. Medications at home included Motrin and [place]. Patient should be on ( ) . I do not see any phosphate binders on his home medications. This will need to be addressed again as outpatient at dialysis. ALLERGIES: None. On examination, the patient is currently comfortable. Awake, alert, oriented x3. He is not in any acute distress. Blood pressure is 157/99. Heart rate 74 per minute. He is afebrile. EXAMINATION OF THE HEART: S1 and S2. EXAMINATION OF THE LUNGS: Bilateral breath sounds are heard. Abdomen is soft, nontender. Examination of lower extremities shows no evidence of edema. PIN STICKER exam is grossly intact. Labs show potassium 5.1 today, sodium 140. Hemoglobin 8.1 grams/deciliter. ASSESSMENT: 1. End-stage renal disease on hemodialysis on Thursday, Thursday, Thursday schedule. Patient will be dialyzed again today and then as outpatient on Thursday. He could be discharged over the weekend after his dialysis today. 2. Severe hyperkalemia, current resolved with dialysis. 3. Anemia with no active bleeding noted, will maintain patient on ( ). I will give him a dose of Aranesp. 4. Chronic kidney disease bone mineral disorder. Check phosphorus levels and start phosphate binders. I do not see any on his home medication list. [facility]
[2017-01-17] MEDS ORDERED: DARBEPOETIN ALFA 25 MCG/0.42 ML SYRINGE SQ SCH (09:00)
[2017-01-17] MEDS: FAMOTIDINE 20 MG TAB PO SCH (10:12)
--- NOTE | 2017-01-17 12:17 | P.PN ---
Subjective Principal diagnosis: This is a 66-year-old male being seen examined and evaluated in the intensive care unit today. This patient was at home cleaning his gutters must balance and fell backwards he landed on his sacrum and back. He denies any loss of consciousness or hitting his head. The patient does not take any anticoagulants. He continues to have dull ache in his back that radiates down his legs. This patient is a recent dialysis patient and was discharged approximately 10 days ago from the hospital and was scheduled to have dialysis on Wednesdays and Fridays. The patient has not gone to dialysis and upon workup in the emergency room he was noted to be hyperkalemic of 7.1 low CO2 of 10, BUN 108, creatinine 13.44 calcium 8.6 phosphorus 11.[address] of his lumbar spine, CT of the head and cervical spine, and CT of the sacrum failed to show any acute injury or processes. Nephrology has already been consult it in the patient will be undergoing dialysis immediately. We will obtain repeat labs postdialysis. Upon examination the patient's resting up in bed on room air he denies any cough or congestion or shortness of breath at this time. He does complain of some dull low back pain. Patient also in the ER was noted to have hypertensive urgency he was given Lopressor IV push which helped. 01/17/17patient underwent hemodialysis successfully potassium level has improved the cardiac enzymes were ordered for emergency department marginal evaluation has been noted likely related to chronic renal failure patient remains asymptomatic denies any chest pain will monitor and observe those levels closely if remains a stable cannula moved out of the ICU Objective - Vital Signs Vital signs: Vital Signs Temp 98.0 F 01/17/17 08:00 Pulse 72 01/17/17 10:00 Resp 7 L 01/17/17 10:00 BP 152/79 01/17/17 10:00 Pulse Ox 99 01/17/17 10:00 Intake & Output 01/16/17 01/17/17 01/17/17 18:59 06:59 18:59 Intake Total 960 220 80 Output Total 200 400 100 Balance 760 -180 -20 Weight 62.142 kg 61.1 kg 61.1 kg Intake: IV 120 220 80 0.9NS 120 220 80 Oral 840 Output: Urine 200 400 100 Other: Voiding Method Toilet Toilet Toilet Urinal Urinal Urinal # Voids 1 1 1 - Exam GENERAL EXAM: Alert, active, comfortable in no apparent distress. HEAD: Normocephalic. EYES: Normal reaction of pupils, equal size. NOSE: Clear with pink turbinates. THROAT: No erythema or exudates. NECK: No masses, no JVD. CHEST: No chest wall deformity. LUNGS: Equal air entry with no crackles, wheeze, rhonchi or dullness. CVS: S1 and S2 normal with no audible mumurs, regular rhythm. ABDOMEN: No hepatosplenomegaly, normal bowel sounds, no guarding or rigidity. EXTREMITIES: No edema noted, pedal pulses palpable. SKIN: No rashes CENTRAL NERVOUS SYSTEM: No focal deficits, tone is normal in all 4 extremities. - Labs CBC & Chem 7: 01/17/17 04:16 01/17/17 04:16 Labs: Abnormal Lab Results - Last 24 Hours (Table) 01/16/17 01/16/17 01/16/17 Range/Units 11:15 13:55 21:03 RBC (4.30-5.90) m/uL Hgb (13.0-17.5) gm/dL Hct (39.0-53.0) % Neutrophils # (1.3-7.7) k/uL Lymphocytes # (1.0-4.8) k/uL Potassium 3.4 L (3.5-5.1) mmol/L Chloride (98-107) mmol/L Carbon Dioxide (22-30) mmol/L BUN 41 H (9-20) mg/dL Creatinine 5.06 H* (0.66-1.25) mg/dL Glucose 73 L (74-99) mg/dL POC Glucose (mg/dL) 103 H (75-99) mg/dL Calcium 7.9 L (8.4-10.2) mg/dL Phosphorus 11.2 H* (2.5-4.5) mg/dL Troponin I (0.000-0.034) ng/mL 01/16/17 01/17/17 01/17/17 Range/Units 23:25 04:16 04:16 RBC 2.49 L (4.30-5.90) m/uL Hgb 8.1 L D (13.0-17.5) gm/dL Hct 23.3 L (39.0-53.0) % Neutrophils # 8.3 H (1.3-7.7) k/uL Lymphocytes # 0.6 L (1.0-4.8) k/uL Potassium (3.5-5.1) mmol/L Chloride 108 H (98-107) mmol/L Carbon Dioxide 18 L (22-30) mmol/L BUN 49 H (9-20) mg/dL Creatinine 6.10 H* (0.66-1.25) mg/dL Glucose 108 H (74-99) mg/dL POC Glucose (mg/dL) (75-99) mg/dL Calcium 7.9 L (8.4-10.2) mg/dL Phosphorus 6.0 H (2.5-4.5) mg/dL Troponin I 0.127 H* (0.000-0.034) ng/mL Assessment and Plan Plan: Assessment severe hyperkalemia Acute on chronic renal failure Alcohol abuse Back pain status post fall Medical debility Noncompliance with hemodialysis on the outpatient setting History of hepatitis C mildly elevated troponin level likely related chronic renal failure patient is otherwise asymptomatic, appears to be contributed from fall Plan Medications have been reviewed and will be continued as ordered. We suspect the patient's blood pressure will improve with dialysis treatments. Pain medications as ordered. Repeat labs after dialysis. Nephrology on consult and appreciate recommendations. Continue with pulmonary hygiene, coughing and deep breathing exercises, and supportive care. Supplemental oxygen to maintain oxygen saturations of 92% or better. Continue nebulizer treatments. GI prophylaxis with Pepcid and mechanical DVT prophylaxis. We will continue to monitor labs/results and adjust treatment as necessary. Further recommendations pending. Time with Patient: Greater than 30
--- NOTE | 2017-01-17 13:36 | PN ---
SUBJECTIVE: This is a 66-year-old white male with hyperkalemia, acute renal insufficiency for noncompliance showing up at dialysis. He has severe hyperkalemia for which Aranesp has been given and also shows that he is getting ( ) 3.1. Sodium is 140, today his potassium is 5.1. BUN is 49. Creatinine 6.10. Phosphorus is low. PLAN: Patient will continue ( ), receive dialysis, monitor electrolytes, advance diet. Transfer out to the medical floor. One dialysis is done on Thursday , he will be able to be discharged home and follow up as an outpatient on Thursday. Continue current medicine. ICU TIME: 30 minutes. JESUD
[2017-01-18] MEDS: MORPHINE SULFATE 4 MG/ML SYRINGE IV PRN ×5 (04:36→23:02)
[2017-01-18 04:57] LABS: Basophils % (A) 1 %; CH 32.9; CHCM 34.8; Eosinophils # (A) 0.2 k/uL (0-0.7); Eosinophils % (A) 5 %; HCT 23.7 % (39.0-53.0); HDW 2.99; HGB 8.2 gm/dL (13.0-17.5); Luc # (Auto) 0.09; Luc % (Auto) 2; Lymphocytes # (A) 1.1 k/uL (1.0-4.8); Lymphocytes % (A) 21 %; MCH 32.7 pg (25.0-35.0); MCHC 34.4 g/dL (31.0-37.0); MCV 95.2 fL (80.0-100.0); Mean Platelet Volume 7.7; Monocytes # (A) 0.2 k/uL (0-1.0); Monocytes % (A) 5 %; Neutrophils # (A) 3.5 k/uL (1.3-7.7); Neutrophils % (A) 67 %; RBC 2.49 m/uL (4.30-5.90); RDW 14.1 % (11.5-15.5); WBC 5.2 k/uL (3.8-10.6)
[2017-01-18 05:02] LABS: Calcium 8.3 mg/dL (8.4-10.2); Magnesium 1.7 mg/dL (1.6-2.3); Phosphorous 5.4 mg/dL (2.5-4.5); Potassium 4.1 mmol/L (3.5-5.1)
[2017-01-18] MEDS: FAMOTIDINE 20 MG TAB PO SCH (07:18)
--- NOTE | 2017-01-18 09:41 | PN ---
The patient is seen for follow-up for end stage renal disease. He was dialyzed yesterday. The patient will be dialyzed again tomorrow. He is currently comfortable. He denies any complaints. On examination, blood pressure was 154/90. Heart rate 74 per minute. The patient is euvolemic with no evidence of edema in his lower extremities. Labs show sodium 140, potassium 4.1, BUN 24, serum creatinine 4.2. Hemoglobin 8.2 gmDL. ASSESSMENT: 1. End stage renal disease on hemodialysis on a Thursday, Thursday, Thursday schedule. The patient will be dialyzed tomorrow. He currently has a right IJ PermaCath. 2. Severe metabolic acidosis secondary to missing dialysis. 3. Hyperkalemia on initial admission secondary to patient having missed dialysis. This is currently improved. 4. Anemia, of chronic disease with no active bleeding noted. Maintained on Aranesp. PLAN: Hemodialysis tomorrow and the patient can be discharged post dialysis tomorrow. ESTHER
--- NOTE | 2017-01-18 10:03 | P.PN ---
Subjective Principal diagnosis: This is a 66-year-old male being seen examined and evaluated in the intensive care unit today. This patient was at home cleaning his gutters must balance and fell backwards he landed on his sacrum and back. He denies any loss of consciousness or hitting his head. The patient does not take any anticoagulants. He continues to have dull ache in his back that radiates down his legs. This patient is a recent dialysis patient and was discharged approximately 10 days ago from the hospital and was scheduled to have dialysis on Wednesdays and Fridays. The patient has not gone to dialysis and upon workup in the emergency room he was noted to be hyperkalemic of 7.1 low CO2 of 10, BUN 108, creatinine 13.44 calcium 8.6 phosphorus 11.[address] of his lumbar spine, CT of the head and cervical spine, and CT of the sacrum failed to show any acute injury or processes. Nephrology has already been consult it in the patient will be undergoing dialysis immediately. We will obtain repeat labs postdialysis. Upon examination the patient's resting up in bed on room air he denies any cough or congestion or shortness of breath at this time. He does complain of some dull low back pain. Patient also in the ER was noted to have hypertensive urgency he was given Lopressor IV push which helped. 01/17/17patient underwent hemodialysis successfully potassium level has improved the cardiac enzymes were ordered for emergency department marginal evaluation has been noted likely related to chronic renal failure patient remains asymptomatic denies any chest pain will monitor and observe those levels closely if remains a stable cannula moved out of the ICU Objective - Vital Signs Vital signs: Vital Signs Temp 98 F 01/18/17 08:00 Pulse 74 01/18/17 08:00 Resp 17 01/18/17 08:00 BP 154/90 01/18/17 08:00 Pulse Ox 94 L 01/18/17 08:00 Intake & Output 01/17/17 01/18/17 01/18/17 18:59 06:59 18:59 Intake Total 860 240 40 Output Total 200 Balance 660 240 40 Weight 61.1 kg 62.1 kg Intake: IV 140 240 40 0.9NS 140 240 40 Oral 720 Output: Urine 200 Other: Voiding Method Toilet Toilet Toilet Urinal Urinal Urinal # Voids 1 - Exam GENERAL EXAM: Alert, active, comfortable in no apparent distress. HEAD: Normocephalic. EYES: Normal reaction of pupils, equal size. NOSE: Clear with pink turbinates. THROAT: No erythema or exudates. NECK: No masses, no JVD. CHEST: No chest wall deformity. LUNGS: Equal air entry with no crackles, wheeze, rhonchi or dullness. CVS: S1 and S2 normal with no audible mumurs, regular rhythm. ABDOMEN: No hepatosplenomegaly, normal bowel sounds, no guarding or rigidity. EXTREMITIES: No edema noted, pedal pulses palpable. SKIN: No rashes CENTRAL NERVOUS SYSTEM: No focal deficits, tone is normal in all 4 extremities. - Labs CBC & Chem 7: 01/18/17 04:20 01/18/17 04:20 Labs: Abnormal Lab Results - Last 24 Hours (Table) 01/18/17 01/18/17 Range/Units 04:20 04:20 RBC 2.49 L (4.30-5.90) m/uL Hgb 8.2 L (13.0-17.5) gm/dL Hct 23.7 L (39.0-53.0) % BUN 24 H (9-20) mg/dL Creatinine 4.20 H (0.66-1.25) mg/dL Glucose 120 H (74-99) mg/dL Calcium 8.3 L (8.4-10.2) mg/dL Phosphorus 5.4 H (2.5-4.5) mg/dL Assessment and Plan Plan: Assessment severe hyperkalemia, resolved, on hemodialysis Acute on chronic renal failure, stage V Alcohol abuse Back pain status post fall Medical debility Noncompliance with hemodialysis on the outpatient setting History of hepatitis C mildly elevated troponin level likely related chronic renal failure patient is otherwise asymptomatic, appears to be contributed from fall Plan Patient can be moved out of the ICU, Medications have been reviewed and will be continued as ordered. We suspect the patient's blood pressure will improve with dialysis treatments. Pain medications as ordered. Repeat labs after dialysis. Nephrology on consult and appreciate recommendations. Continue with pulmonary hygiene, coughing and deep breathing exercises, and supportive care. Supplemental oxygen to maintain oxygen saturations of 92% or better. Continue nebulizer treatments. GI prophylaxis with Pepcid and mechanical DVT prophylaxis. We will continue to monitor labs/results and adjust treatment as necessary. Further recommendations pending. Time with Patient: Greater than 30
[2017-01-18] MEDS: hydrALAZINE HCL 25 MG TAB PO SCH ×3 (14:10→20:43)
[2017-01-18] MEDS: hydrALAZINE HCL 50 MG TAB PO SCH (22:12)
[2017-01-19] MEDS: MORPHINE SULFATE 4 MG/ML SYRINGE IV PRN ×3 (03:01→11:14)
--- NOTE | 2017-01-19 08:48 | P.PN ---
Subjective Patient seen in follow-up for end-stage renal disease. He is maintained on hemodialysis on a Thursday schedule. Patient missed a week of dialysis prior to admission. He was hyperkalemic and underwent urgent hemodialysis. Currently resting in bed. No active complaints. Denies chest pain or shortness of breath. Hemodynamically stable. Vital signs are stable. General: The patient appeared well nourished and normally developed. HEENT: Head exam is unremarkable. Neck is without jugular venous distension. LUNGS: Lungs are clear to auscultation and percussion. Breath sounds decreased. HEART: Rate and Rhythm are regular. First and second heart sounds normal. No murmurs, rubs or gallops. ABDOMEN: Abdominal exam reveals normal bowel sounds. Non-tender and non- distended. No evidence of peritonitis. EXTREMITITES: No clubbing, cyanosis, or edema. Objective - Vital Signs Vital signs: Vital Signs Temp 97.3 F L 01/19/17 08:00 Pulse 72 01/19/17 08:00 Resp 18 01/19/17 08:00 BP 194/113 01/19/17 08:00 Pulse Ox 100 01/19/17 08:00 Intake & Output 01/18/17 01/19/17 01/19/17 18:59 06:59 18:59 Intake Total 400 Output Total 200 Balance 400 -200 Weight 62.2 kg Intake: IV 40 0.9NS 40 Oral 360 Output: Urine 200 Other: Voiding Method Toilet Toilet Urinal Urinal - Labs CBC & Chem 7: 01/18/17 04:20 01/18/17 04:20 Assessment and Plan Plan: Assessment: #1. End-stage renal disease maintained on hemodialysis on a Thursday schedule via right chest permacath. #2. Noncompliance with hemodialysis as an outpatient. #3. Hyperkalemia secondary to noncompliance with hemodialysis. Resolved postdialysis. #4. Anemia of chronic kidney disease. #5. Hypertension with chronic kidney disease. Uncontrolled. Plan: Hemodialysis today. Maintain Aranesp. Add amlodipine 5 mg once daily. Potential discharge after dialysis today. Strongly advised him to be compliant with hemodialysis treatments as an outpatient.
[2017-01-19] MEDS ORDERED: amLODIPine 5 MG TAB PO SCH (09:00)
[2017-01-19] MEDS: hydrALAZINE HCL 50 MG TAB PO SCH ×3 (09:00→21:09)
[2017-01-19] MEDS: FAMOTIDINE 20 MG TAB PO SCH (09:00)
--- NOTE | 2017-01-19 11:02 | PN ---
ICU time 30 minutes. SUBJECTIVE: 66 -year-old male in the ICU for getting dialysis yesterday and scheduled for dialysis tomorrow and then possible discharge. Hemoglobin is 8.2. BUN 24, creatinine 4.2. Calcium is 8.3. Phosphorus 5.4. Cardiovascular S1, S2, lungs transmitted upper airway sounds. GI: Increased bowel sounds times four. Blood pressure 188 to 157/100 to 104, O2 97% on room air. Temp 98.3. Pulse 70s to 80s. Abdomen is soft. Hematological negative. Psych: Flat mood. ASSESSMENT: 1. Acute renal failure. 2. End stage renal failure. 3. Noncompliance. 4. Generalized debility. 5. Please continue current doses tomorrow and possible discharge at this point. 6. Blood pressure acceleration will be treated with increased blood pressure medicines. 7. At this time I will increase medications. 8. I can increase maybe start blood pressure medicines at this time including low dose Norvasc or increased hydralazine. ICU time 30 minutes. MTDD
--- NOTE | 2017-01-19 11:35 | P.PN ---
Subjective This is a 66-year-old male being seen examined and evaluated in the intensive care unit today. This patient was at home cleaning his gutters must balance and fell backwards he landed on his sacrum and back. He denies any loss of consciousness or hitting his head. The patient does not take any anticoagulants. He continues to have dull ache in his back that radiates down his legs. This patient is a recent dialysis patient and was discharged approximately 10 days ago from the hospital and was scheduled to have dialysis on Wednesdays and Fridays. The patient has not gone to dialysis and upon workup in the emergency room he was noted to be hyperkalemic of 7.1 low CO2 of 10, BUN 108, creatinine 13.44 calcium 8.6 phosphorus 11.[address] of his lumbar spine, CT of the head and cervical spine, and CT of the sacrum failed to show any acute injury or processes. Nephrology has already been consult it in the patient will be undergoing dialysis immediately. We will obtain repeat labs postdialysis. Upon examination the patient's resting up in bed on room air he denies any cough or congestion or shortness of breath at this time. He does complain of some dull low back pain. Patient also in the ER was noted to have hypertensive urgency he was given Lopressor IV push which helped. 01/17/17patient underwent hemodialysis successfully potassium level has improved the cardiac enzymes were ordered for emergency department marginal evaluation has been noted likely related to chronic renal failure patient remains asymptomatic denies any chest pain will monitor and observe those levels closely if remains a stable cannula moved out of the ICU 01/18/[address] Barnhart note 01/19/17 patient is being seen examined and evaluated today on the sixth floor. Patient continues on room air. Denies any cough or congestion or shortness of breath. Patient is scheduled to have dialysis today and is a potential discharge after dialysis has been completed. This patient is known to be noncompliant with his dialysis in the outpatient setting education has been provided to the patient in regards to the importance of his compliance with his dialysis schedule. Patient verbalizes his understanding. Objective - Vital Signs Vital signs: Vital Signs Temp 97.0 F L 01/19/17 11:13 Pulse 72 01/19/17 11:13 Resp 18 01/19/17 11:13 BP 190/107 01/19/17 11:13 Pulse Ox 99 01/19/17 11:13 Intake & Output 01/18/17 01/19/17 01/19/17 18:59 06:59 18:59 Intake Total 400 300 Output Total 200 Balance 400 -200 300 Weight 62.2 kg Intake: IV 40 0.9NS 40 Oral 360 300 Output: Urine 200 Other: Voiding Method Toilet Toilet Toilet Urinal Urinal Urinal # Voids 1 - Exam GENERAL EXAM: Alert, active, comfortable in no apparent distress. HEAD: Normocephalic. EYES: Normal reaction of pupils, equal size. NOSE: Clear with pink turbinates. THROAT: No erythema or exudates. NECK: No masses, no JVD. CHEST: No chest wall deformity. LUNGS: Equal air entry with no crackles, wheeze, rhonchi or dullness. CVS: S1 and S2 normal with no audible mumurs, regular rhythm. ABDOMEN: No hepatosplenomegaly, normal bowel sounds, no guarding or rigidity. EXTREMITIES: No edema noted, pedal pulses palpable. SKIN: No rashes CENTRAL NERVOUS SYSTEM: No focal deficits, tone is normal in all 4 extremities. - Labs CBC & Chem 7: 01/18/17 04:20 01/18/17 04:20 Assessment and Plan Plan: Assessment Severe Hyperkalemia, resolved, on hemodialysis Acute on chronic renal failure Alcohol abuse Back pain status post fall Medical debility Noncompliance with hemodialysis on the outpatient setting History of hepatitis C Mildly elevated troponin levels likely related to chronic renal failure patient is otherwise asymptomatic, appears to be contributed from fall Plan Patient could be cleared for discharge from a talent coordinator/pulmonology standpoint. Medications have been reviewed and will be continued as ordered. Absent have all been reviewed. Blood pressure has been stable. Pain medications as ordered. Nephrology on consult and appreciate recommendations. Continue with pulmonary hygiene, coughing and deep breathing exercises, and supportive care. Supplemental oxygen to maintain oxygen saturations of 92% or better. Continue nebulizer treatments. GI prophylaxis with Pepcid and mechanical DVT prophylaxis. We will continue to monitor labs/results and adjust treatment as necessary. Further recommendations pending. I performed an examination of the patient and discussed their management with the nurse practitioner. I have reviewed the nurse practitioner's note and agree with the documented findings and plan of care.
[2017-01-19] MEDS ORDERED: HEPARIN SODIUM,PORCINE 5,000 UNIT/ML 1 ML VIAL ONE (15:00)
[2017-01-19] MEDS ORDERED: HYDROcodone/APAP 10-325MG 1 EACH TAB PO PRN (15:52)
[2017-01-19] MEDS: amLODIPine 10 MG TAB PO SCH (22:07)
[2017-01-19] MEDS: HYDROcodone/APAP 10-325MG 1 EACH TAB PO PRN (22:07)
[2017-01-20] MEDS: HYDROcodone/APAP 10-325MG 1 EACH TAB PO PRN ×2 (04:05→09:15)
[2017-01-20 08:09] VITALS: BP 168/91; PULSE 82; RESP 16; TEMP 97.9
--- NOTE | 2017-01-20 08:50 | P.DS ---
Providers Date of admission: 01/16/17 12:49 Expected date of discharge: 01/20/17 Attending physician: Justin Romano Consults: 01/16/17 12:49 Consult Physician Stat Consulting Provider: Ruby Mccurdy Consult Reason/Comments: Renal failure / dialysis Do you want consulting provider notified?: Yes 01/16/17 13:06 Consult Physician Stat Consulting Provider: Curtis Barnhart Consult Reason/Comments: Hyperkalemia / renal failure requiring dialysis Do you want consulting provider notified?: Yes Primary care physician: [facility] Course: A 66-year-old Afro-[place]ien male presented on the day of admission to the emergency room where patient presented after patient reportedly stated that he was cleaning his gutters the day before lost his balance and fell backwards. He stated he landed on the sacrum in his back. Patient was ambulatory at the scene and denied losing any consciousness or hitting his head. He is on no blood thinners. Patient is a dialysis patient and does receive hemodialysis in the outpatient setting Thursday schedule. He stated he was not able to go to his dialysis appointment due to the pain. A CAT scan of the lumbar spine done in the emergency room of the sacrum failed to show any acute injury or process. Nephrology consultation was requested. Patient's potassium was elevated 7.1 creatinine 13. Patient was urgently dialyzed. Labs were followed. In the emergency room patient was noted to be hypertensive. Patient was given Lopressor IV to address the hypertension urgency. Over the course of the hospitalization electrolytes were monitored closely patient initially was admitted to the intensive care unit for close monitoring was able to be transferred out of the ICU to stepdown unit. It was stressed throughout the hospitalization the importance of complying with the need to follow-up with dialysis as directed and not missed any appointments. Patient had missed his outpatient hemodialysis. Reportedly missed a weeks of dialysis Patient does have a history of end-stage renal disease on hemodialysis on a Thursday schedule. Patient was felt to be hemodynamically stable and appropriate proceed with a discharge to home Impression discharge diagnosis Present on admission hypertension urgency resolved End-stage renal disease on hemodialysis Thursday schedule the right chest permacath Hypertension Anemia of chronic disease Present on admission severe hyperkalemia suspect due to missed hemodialysis Chronic kidney disease bone mineral disorder Anemia with no active bleeding noted hemoglobin stable Noncompliant with hemodialysis as an outpatient missed 1 week Hypertension with chronic kidney disease Chronic nicotine dependency active greater than a 40 year history Prior to admission history of fall from a ladder the day before with negative CAT scan of the lumbar spine and sacrum no acute process History of cocaine abuse use last within the past 2 months History of alcoholism not active The above impression and plan of care have been discussed and directed by signing physician. Taina Urbina nurse practitioner acting as scribe for signing physician. Plan - Discharge Summary New Discharge Prescriptions: New amLODIPine [Norvasc] 5 mg PO DAILY #30 tab hydrALAZINE HCL [Apresoline] 50 mg PO TID #90 tab Continue HYDROcodone/APAP 10-325MG [[place] 10-325] 1 tab PO TID Ibuprofen [Motrin] 200 - 400 mg PO Q6H PRN PRN Reason: Pain Discharge Medication List HYDROcodone/APAP 10-325MG [[place] 10-325] 1 tab PO TID 01/03/17 [History] Ibuprofen [Motrin] 200 - 400 mg PO Q6H PRN 01/16/17 [History] amLODIPine [Norvasc] 5 mg PO DAILY #30 tab 01/19/17 [Rx] hydrALAZINE HCL [Apresoline] 50 mg PO TID #90 tab 01/19/17 [Rx] Follow up Appointment(s)/Referral(s): Justin Romano MD [Primary Care Provider] - 01/21/17 9:00 am Patient Instructions/Handouts: Chronic Kidney Disease (DC), Renal Failure Diet (DC) Activity/Diet/Wound Care/Special Instructions: Scripts have been e-prescribed by Dr. Romano's office to [facility] on [address]. Attend hemodialysis on scheduled days Thursday, Thursday, Thursday at scheduled times. Make every effort to attend sessions. Discharge Disposition: HOME SELF-CARE
[2017-01-20] MEDS: hydrALAZINE HCL 50 MG TAB PO SCH (09:16)
[2017-01-20] MEDS: amLODIPine 10 MG TAB PO SCH (09:16)
[2017-01-20] MEDS: FAMOTIDINE 20 MG TAB PO SCH (09:16)
--- NOTE | 2017-01-20 12:29 | PN ---
DISCHARGE/PROGRESS NOTE: SUBJECTIVE: 66 -year-old male who was transferred to the medical floor after dialysis. He is supposed to be discharged home in the next 24 hours. He is not compliant with all his diabetes and his home medical care. CARDIOVASCULAR: S1, S2. Lungs transmitted upper airway signs. Blood pressure is high 190s over 100s. Pulse 70 to 72. Respiratory rate is 16 to 18. Temp is 97. GI: Soft. Hematological: Negative Homans. PSYCH: Fair mood and affect. NEUROLOGICAL: Alert and oriented times three. Musculoskeletal: He walks with a limp. He has lumbar tenderness to palpitation bilaterally. Hemoglobin 8.2, white count 5.2. Sodium 140. Potassium 4.1. BUN 24, creatinine 4.2. ASSESSMENT: 1. Severe hyperkalemia. 2. Acute on chronic renal failure. 3. Alcohol abuse. 4. Lumbar disc disease. 5. Medical debility. 6. Noncompliance. 7. Outpatient treatment. 8. Hepatitis C. 9. Elevated troponin due to renal disease. 10. Possible discharge home in the next 24 to 48 hours. 11. Blood pressure medicines readjusted before discharge. MTDD
== END 2017-01-20 10:00 | disposition home or self-care (01) | DRG 682 ==
LOC: EC 09:54 → 6ICU 12:49 → 6SEL 01-18 16:36 → 4MS4W 01-19 20:18
PROVIDERS: ADMIT Family Medicine; ATTEND Family Medicine
PROC: 5A1D60Z (ICD-10-PCS; principal; 2017-01-16)
DX: I12.0 Hypertensive chronic kidney disease with stage 5 chronic kidney disease or end stage renal disease (principal); N18.6 End stage renal disease; N17.9 Acute kidney failure, unspecified; E87.2 Acidosis; E87.5 Hyperkalemia; B19.20 Unspecified viral hepatitis C without hepatic coma; D63.1 Anemia in chronic kidney disease; E78.5 Hyperlipidemia, unspecified; S30.0XXA Contusion of lower back and pelvis, initial encounter; I16.0 Hypertensive urgency; Z91.15 Patient's noncompliance with renal dialysis; F10.10 Alcohol abuse, uncomplicated; F17.200 Nicotine dependence, unspecified, uncomplicated; F31.9 Bipolar disorder, unspecified; M51.9 Unspecified thoracic, thoracolumbar and lumbosacral intervertebral disc disorder; W01.0XXA Fall on same level from slipping, tripping and stumbling without subsequent striking against object, initial encounter; Z81.1 Family history of alcohol abuse and dependence; Z83.3 Family history of diabetes mellitus; Z99.2 Dependence on renal dialysis
CPT/HCPCS: 36415; 70450; 72125; 72131; 72192; 80048; 83735; 83880; 84100; 84484; 85025; 90935; 93005; 96365; 96372; 96375; 99285

== ENCOUNTER 2017-02-05 17:44 | Inpatient (IN) | payer MEDICARE ==
[2017-02-05] MEDS ORDERED: NITROGLYCERIN OINT 1 INCH/GM PACKET TOPICAL STA (18:48)
--- NOTE | 2017-02-05 18:53 | ED ---
General Adult HPI - General Chief complaint: Abdominal Pain Stated complaint: abd pain Time Seen by Provider: 02/05/17 18:32 Source: patient Mode of arrival: ambulatory Limitations: no limitations - History of Present Illness Initial comments: This 58-year-old white male presents with a complaint of some pain in his upper abdomen and lower chest both anteriorly and posteriorly. He states that this is been going on for the last couple of weeks. He feels very weak as well. He is on dialysis normally 3 times a week and apparently has not had dialysis in the past 2 weeks. He states that he is unable to walk to the bus stop as he has pain in his feet and develops weakness. He has been unable to therefore get to his dialysis appointments. He is still making some moderate urine. He states that he is unable to eat or drink very well as he has increased pain and nausea. No other complaints or modifying factors. He has no leg pain or swelling. He apparently had very similar symptoms this past month after missing 3 dialysis appointments - Related Data Home Medications Medication Instructions Recorded Confirmed HYDROcodone/APAP 10-325MG [[place] 1 tab PO Q8H 01/03/17 02/05/17 10-325] ALPRAZolam [Xanax] 0.25 mg PO Q12H PRN 02/05/17 02/05/17 Previous Rx's Medication Instructions Recorded amLODIPine [Norvasc] 5 mg PO DAILY #30 tab 01/19/17 hydrALAZINE HCL [Apresoline] 50 mg PO TID #90 tab 01/19/17 Allergies Allergy/AdvReac Type Severity Reaction Status Date / Time aspirin AdvReac Nausea & Verified 02/05/17 18:26 Vomiting Review of Systems ROS Statement: Those systems with pertinent positive or pertinent negative responses have been documented in the HPI. ROS Other: All systems not noted in ROS Statement are negative. Past Medical History Past Medical History: Dialysis, Hyperlipidemia, Hypertension, Renal Disease Additional Past Medical History / Comment(s): "spot on liver" History of Any Multi-Drug Resistant Organisms: None Reported Past Surgical History: Orthopedic Surgery Additional Past Surgical History / Comment(s): 07/01/16 NICO. Past Anesthesia/Blood Transfusion Reactions: No Reported Reaction Past Psychological History: Bipolar, Depression Smoking Status: Current every day smoker Past Alcohol Use History: None Reported Past Drug Use History: None Reported - Past Family History Father Additional Family Medical History / Comment(s): Father was an alcoholic and of this at the age of 44yrs. Mother Family Medical History: No Reported History Additional Family Medical History / Comment(s): Mother is 88yrs old and healthy. Brother(s) Family Medical History: Diabetes Mellitus General Exam - General Exam Comments Initial Comments: GENERAL: The patient is well nourished and well hydrated. VITAL SIGNS: Heart rate, blood pressure, respiratory rate reviewed as recorded in nurse's notes. EYES: Pupils are round and reactive. Extraocular movements are intact. No conjunctival / lid redness or swelling. ENT: No external evidence of injury, swelling, or ecchymosis. Airway is patent. Throat is clear. NECK: Nontender. No swelling or evidence of injury. No subcutaneous emphysema. Trachea is midline. No thyroid mass. HEART: Regular rate and rhythm. Good peripheral pulses. LUNGS/CHEST: Breath sounds clear and equal bilaterally. No rales, rhonchi, or wheezes. No ecchymosis, subcutaneous emphysema, or tenderness. There is a dialysis catheter noted to the right chest. ABDOMEN: Abdomen soft without tenderness. No palpable masses or organomegaly. No peritoneal signs. No abdominal wall swelling or ecchymosis. EXTREMITIES: No extremity tenderness. Normal muscle tone and function. No thoracolumbar tenderness. NEUROLOGIC: Sensation is grossly intact. Cranial nerve exam reveals face is symmetrical, tongue is midline, speech is clear. SKIN: No abrasions or ecchymosis is noted. No induration or masses noted. PSYCHIATRIC: Alert and oriented. Appropriate behavior and judgment. Limitations: no limitations Course Vital Signs 02/05/17 02/05/17 02/05/17 18:24 20:35 21:22 Temperature 98 F 99.2 F Pulse Rate 105 H 97 Respiratory 20 20 16 Rate Blood Pressure 171/105 170/102 O2 Sat by Pulse 98 97 Oximetry Medical Decision Making - Medical Decision Making The patient was seen and examined. All diagnostics were reviewed. The EKG shows a normal sinus rhythm at a rate of 92. There is no acute ST-T wave changes identified. The DC interval is 146, QRS duration is 80, and the QTc interval is 427. An IV is established and he does receive some Nitropaste to the anterior chest wall. Aspirin is avoided due to his ALLERGIES. The laboratory came back showing severe pancreatitis. His kidney function studies are severely elevated. He is also acidotic. His potassium is significantly elevated and he does receive some Kayexalate, insulin, glucose, and bicarbonate for this. He receives some Dilaudid for pain. It is felt as though he would require admission to the hospital for further treatment. He is agreeable to this plan. Case is discussed with internal medicine and they're agreeable to admission with nephrology and gastroenterology to consult. Approximately 30 minutes of critical care time was utilized and the treatment of the patient. - Lab Data Result diagrams: 02/05/17 19:15 02/05/17 19:15 Lab Results 02/05/17 02/05/17 02/05/17 Range/Units 19:15 19:15 19:15 WBC 7.3 (3.8-10.6) k/uL RBC 3.39 L (4.30-5.90) m/uL Hgb 11.1 L (13.0-17.5) gm/dL Hct 33.7 L (39.0-53.0) % MCV 99.5 (80.0-100.0) fL MCH 32.8 (25.0-35.0) pg MCHC 33.0 (31.0-37.0) g/dL RDW 14.4 (11.5-15.5) % Plt Count 275 (150-450) k/uL Neutrophils % 72 % Lymphocytes % 18 % Monocytes % 6 % Eosinophils % 2 % Basophils % 0 % Neutrophils # 5.3 (1.3-7.7) k/uL Lymphocytes # 1.3 (1.0-4.8) k/uL Monocytes # 0.4 (0-1.0) k/uL Eosinophils # 0.1 (0-0.7) k/uL Basophils # 0.0 (0-0.2) k/uL Macrocytosis Slight PT (9.0-12.0) sec INR (<1.2) APTT (22.0-30.0) sec Sodium 136 L (137-145) mmol/L Potassium 6.4 H* (3.5-5.1) mmol/L Chloride 108 H (98-107) mmol/L Carbon Dioxide 7 L* (22-30) mmol/L Anion Gap 21 mmol/L BUN 89 H* (9-20) mg/dL Creatinine 14.79 H* (0.66-1.25) mg/dL Est GFR (MDRD) Af Amer 4 (>60 ml/min/1.73 sqM) Est GFR (MDRD) Non-Af 3 (>60 ml/min/1.73 sqM) Glucose 82 (74-99) mg/dL Calcium 8.8 (8.4-10.2) mg/dL Magnesium 1.4 L (1.6-2.3) mg/dL Total Bilirubin 0.4 (0.2-1.3) mg/dL AST 22 (17-59) U/L ALT 34 (21-72) U/L Alkaline Phosphatase 147 H (38-126) U/L Total Creatine Kinase 33 L (55-170) U/L CK-MB (CK-2) 1.1 (0.0-2.4) ng/mL CK-MB (CK-2) Rel Index 3.3 Troponin I 0.015 (0.000-0.034) ng/mL NT-Pro-B Natriuret Pep pg/mL Total Protein 8.2 (6.3-8.2) g/dL Albumin 4.2 (3.5-5.0) g/dL Amylase 1004 H* (30-110) U/L Lipase 29381 H (23-300) U/L 02/05/17 02/05/17 Range/Units 19:15 19:15 WBC (3.8-10.6) k/uL RBC (4.30-5.90) m/uL Hgb (13.0-17.5) gm/dL Hct (39.0-53.0) % MCV (80.0-100.0) fL MCH (25.0-35.0) pg MCHC (31.0-37.0) g/dL RDW (11.5-15.5) % Plt Count (150-450) k/uL Neutrophils % % Lymphocytes % % Monocytes % % Eosinophils % % Basophils % % Neutrophils # (1.3-7.7) k/uL Lymphocytes # (1.0-4.8) k/uL Monocytes # (0-1.0) k/uL Eosinophils # (0-0.7) k/uL Basophils # (0-0.2) k/uL Macrocytosis PT 10.8 (9.0-12.0) sec INR 1.1 (<1.2) APTT 24.0 (22.0-30.0) sec Sodium (137-145) mmol/L Potassium (3.5-5.1) mmol/L Chloride (98-107) mmol/L Carbon Dioxide (22-30) mmol/L Anion Gap mmol/L BUN (9-20) mg/dL Creatinine (0.66-1.25) mg/dL Est GFR (MDRD) Af Amer (>60 ml/min/1.73 sqM) Est GFR (MDRD) Non-Af (>60 ml/min/1.73 sqM) Glucose (74-99) mg/dL Calcium (8.4-10.2) mg/dL Magnesium (1.6-2.3) mg/dL Total Bilirubin (0.2-1.3) mg/dL AST (17-59) U/L ALT (21-72) U/L Alkaline Phosphatase (38-126) U/L Total Creatine Kinase (55-170) U/L CK-MB (CK-2) (0.0-2.4) ng/mL CK-MB (CK-2) Rel Index Troponin I (0.000-0.034) ng/mL NT-Pro-B Natriuret Pep 3660 pg/mL Total Protein (6.3-8.2) g/dL Albumin (3.5-5.0) g/dL Amylase (30-110) U/L Lipase (23-300) U/L Disposition Clinical Impression: Chest pain, Abdominal pain, Weakness, Hypertension, Anemia, Pancreatitis, Chronic renal failure, Hyperkalemia, Noncompliance Disposition: ADMITTED IP TO THIS [facility] Condition: Serious Time of Disposition: 21:39
[2017-02-05 19:31] LABS: Basophils % (A) 0 %; CH 32.4; CHCM 32.8; Eosinophils # (A) 0.1 k/uL (0-0.7); Eosinophils % (A) 2 %; HCT 33.7 % (39.0-53.0); HDW 3.02; HGB 11.1 gm/dL (13.0-17.5); Luc # (Auto) 0.15; Luc % (Auto) 2; Lymphocytes # (A) 1.3 k/uL (1.0-4.8); Lymphocytes % (A) 18 %; MCH 32.8 pg (25.0-35.0); MCV 99.5 fL (80.0-100.0); Macrocytosis Slight; Mean Platelet Volume 7.1; Monocytes # (A) 0.4 k/uL (0-1.0); Monocytes % (A) 6 %; Neutrophils # (A) 5.3 k/uL (1.3-7.7); Neutrophils % (A) 72 %; RBC 3.39 m/uL (4.30-5.90); RDW 14.4 % (11.5-15.5); WBC 7.3 k/uL (3.8-10.6); WBC (Perox) 7.61
--- NOTE | 2017-02-05 19:50 | XR ---
EXAMINATION TYPE: XR chest 2V DATE OF EXAM: 02/05/2017 COMPARISON: 11/28/2016 HISTORY: Chest pain TECHNIQUE: Frontal and lateral views of the chest are obtained. FINDINGS: There is no heart failure nor confluent pneumonic infiltrate. There is right central venou s catheter with tip in the superior vena cava. There is no pneumothorax. There are chest leads. Costo phrenic angles are clear. Bony thorax appears intact. IMPRESSION: No active cardiopulmonary disease. No change. Small 5 mm calcified granuloma noted in th e right lung.
[2017-02-05 19:51] LABS: Calcium 8.8 mg/dL (8.4-10.2); Magnesium 1.4 mg/dL (1.6-2.3); Total Bilirubin 0.4 mg/dL (0.2-1.3); Total Protein 8.2 g/dL (6.3-8.2)
--- NOTE | 2017-02-05 19:52 | XR ---
EXAMINATION TYPE: XR abdomen 2V DATE OF EXAM: 02/05/2017 COMPARISON: NONE HISTORY: Nausea and vomiting TECHNIQUE: 3 views FINDINGS: Bowel gas pattern is normal. There is no sign of intestinal obstruction or pneumoperitoneum . Fecal pattern is normal. There is no evidence of a mass. There is narrowing and spurring at L2-3. T here are no pathologic calcifications over the kidneys. IMPRESSION: Nonacute abdomen. No change.
[2017-02-05 19:57] LABS: INR 1.1 (<1.2); Prothrombin Time 10.8 sec (9.0-12.0)
[2017-02-05 20:02] LABS: Creatine Kinase MB 1.1 ng/mL (0.0-2.4); Troponin I 0.015 ng/mL (0.000-0.034)
[2017-02-05 20:12] LABS: Potassium 6.4 mmol/L (3.5-5.1)
[2017-02-05] MEDS ORDERED: SODIUM POLYSTYRENE SULFONATE 15 GM/60 ML BOTTLE PO ONE (20:26)
[2017-02-05] MEDS ORDERED: INSULIN REGULAR 100 UNIT/ML VIAL IV ONE (20:26)
[2017-02-05] MEDS ORDERED: DEXTROSE 50%-WATER 50 ML SYRINGE IVP ONE (20:26)
[2017-02-05] MEDS ORDERED: HYDROmorphone 1 MG/ML 1 ML SYRINGE IVP STA (20:26)
[2017-02-05] MEDS ORDERED: SODIUM BICARB 8.4% 50 ML SYR (1 MEQ/ML) IV ONE (20:26)
[2017-02-05] MEDS ORDERED: ALBUTEROL NEB (CONC) 2.5 MG/0.5 ML INHALATION ONE (20:26)
[2017-02-05] MEDS: MAGNESIUM SULFATE-D5W PMX 1 GM in DEXTROSE/WATER 1 100ML.BAG IVPB SCH ×2 (21:15→23:06)
[2017-02-05] MEDS ORDERED: NALOXONE 0.4 MG/ML 1 ML VIAL IV PRN (21:41)
[2017-02-05] MEDS ORDERED: ONDANSETRON 4 MG/2 ML VIAL IVP PRN (21:41)
[2017-02-05] MEDS ORDERED: PROCHLORPERAZINE SUPPOSITORY 25 MG SUPP RECTAL PRN (21:41)
[2017-02-05] MEDS ORDERED: ACETAMINOPHEN TAB 325 MG TAB PO PRN (21:41)
[2017-02-05] MEDS ORDERED: ALPRAZolam 0.25 MG TAB PO PRN (21:45)
[2017-02-05] MEDS: HYDROcodone/APAP 10-325MG 1 EACH TAB PO SCH (22:51)
[2017-02-05] MEDS: hydrALAZINE HCL 50 MG TAB PO SCH (22:51)
[2017-02-05] MEDS: SODIUM CHLORIDE 0.9% 1,000 ML IV SCH (22:52)
[2017-02-06] MEDS: HYDROmorphone 1 MG/ML 1 ML SYRINGE IV PRN ×4 (00:15→09:46)
[2017-02-06 02:05] LABS: Creatine Kinase MB 1.1 ng/mL (0.0-2.4); Troponin I 0.014 ng/mL (0.000-0.034)
[2017-02-06] MEDS: HYDROcodone/APAP 10-325MG 1 EACH TAB PO SCH ×3 (05:51→20:33)
[2017-02-06 06:53] LABS: Basophils % (A) 0 %; Eosinophils # (A) 0.2 k/uL (0-0.7); Eosinophils % (A) 4 %; HCT 30.8 % (39.0-53.0); HDW 2.87; HGB 9.8 gm/dL (13.0-17.5); Luc # (Auto) 0.09; Luc % (Auto) 2; Lymphocytes # (A) 1.2 k/uL (1.0-4.8); Lymphocytes % (A) 28 %; MCHC 31.7 g/dL (31.0-37.0); MCV 103.9 fL (80.0-100.0); Macrocytosis Slight; Mean Platelet Volume 7.4; Monocytes # (A) 0.3 k/uL (0-1.0); Monocytes % (A) 7 %; Neutrophils # (A) 2.7 k/uL (1.3-7.7); Neutrophils % (A) 60 %; RBC 2.96 m/uL (4.30-5.90); RDW 14.9 % (11.5-15.5); WBC 4.5 k/uL (3.8-10.6); WBC (Perox) 4.63
[2017-02-06 07:07] LABS: Magnesium 2.2 mg/dL (1.6-2.3); Potassium 5.7 mmol/L (3.5-5.1); Total Bilirubin 0.2 mg/dL (0.2-1.3); Total Protein 7.1 g/dL (6.3-8.2)
[2017-02-06 07:16] LABS: Glucose,Whole Blood 86 mg/dL (75-99)
[2017-02-06 07:32] LABS: Troponin I 0.015 ng/mL (0.000-0.034)
[2017-02-06 07:42] LABS: Phosphorous 10.1 mg/dL (2.5-4.5)
[2017-02-06] MEDS ORDERED: ENOXAPARIN 40 MG/0.4 ML SYRINGE SQ SCH (09:00)
[2017-02-06] MEDS: PANTOPRAZOLE 40 MG/10 ML VIAL IV SCH (09:49)
[2017-02-06] MEDS: hydrALAZINE HCL 50 MG TAB PO SCH ×3 (09:51→23:08)
[2017-02-06] MEDS: ENOXAPARIN 30 MG/0.3 ML SYRINGE SQ SCH (09:52)
[2017-02-06] MEDS: amLODIPine 5 MG TAB PO SCH (09:55)
--- NOTE | 2017-02-06 10:34 | P.CONS ---
History of Present Illness - Reason for Consult Consult date: 02/06/17 Pancreatitis Requesting physician: Justin Romano - History of Present Illness 66-year-old gentleman with a history of polysubstance abuse; cocaine, alcoholism end-stage renal disease hemodialysis, alcohol pancreatitis, bipolar depression, presents with acute abdominal pain 3 days with elevated pancreatic enzymes consistent with acute pancreatitis. No active drinking. Patient had Port-A-Cath recently inserted a few months ago for hemodialysis. Dialysis is Thursday. Denies fever chills hematemesis adhesive melena. No active alcohol consumption. White count 4.5-7.3. Hemoglobin 9.8-11.3. MCV 103. Platelet 217. INR 1.1. BUN 92. Creatinine 14. Potassium 6.4 presently 5.7. Total bilirubin 0.2-0.4. AST 20-22. ALT 28-34. Alkaline phosphates 135-147. Amylase 769-1004. Lipase 7923-13,398. Review of Systems Constitutional: Denies fever, chills, sweats, weight gain, or loss. HEENT: Negative for migraines, blurred vision or loss, earaches, drainage, tinnitus, oral mucosal lesions, dysphagia, or odynophagia. Cardiac: Hyperlipidemia. Hypertension. Negative for chest pain, arrhythmias, or palpitation. Respiratory: Negative for shortness of breath, hemoptysis, cough, or sputum production. Gastrointestinal: See HPI for pertinent findings. Genitourinary: Negative for hematuria, urgency, frequency, polyuria, dysuria, or penile discharge. Musculoskeletal: Negative for muscle aches, swelling, arthritis, and arthralgias. Neurologic: Negative for stroke or TIA. Endocrine: Negative for thyroid problems. Nephrology: End-stage renal disease hemodialysis. Skin: Negative for rash or itching. Psychiatric: Bipolar depression. Polysubstance abuse. All systems: negative (See HPI) Past Medical History Past Medical History: Dialysis, Hyperlipidemia, Hypertension, Renal Disease Additional Past Medical History / Comment(s): "spot on liver" History of Any Multi-Drug Resistant Organisms: None Reported Past Surgical History: Orthopedic Surgery Additional Past Surgical History / Comment(s): 07/01/16 NICO. Past Anesthesia/Blood Transfusion Reactions: No Reported Reaction Past Psychological History: Bipolar, Depression Additional Psychological History / Comment(s): Pt resides with one of his brothers. He does not drive. Smoking Status: Current every day smoker Past Alcohol Use History: None Reported Additional Past Alcohol Use History / Comment(s): Pt started smoking around age 7 or 8 yrs. He drinks on a daily basis-brother states he is an alcoholic 02/05 pt denies alcohol use Past Drug Use History: None Reported Additional Drug Use History / Comment(s): Pt states he uses crack cocaine approx 2 weeks ago - Past Family History Father Additional Family Medical History / Comment(s): Father was an alcoholic and of this at the age of 44yrs. Mother Family Medical History: No Reported History Additional Family Medical History / Comment(s): Mother is 88yrs old and healthy. Brother(s) Family Medical History: Diabetes Mellitus Medications and Allergies Home Medications Medication Instructions Recorded Confirmed Type HYDROcodone/APAP 10-325MG [[place] 1 tab PO Q8H 01/03/17 02/05/17 History 10-325] ALPRAZolam [Xanax] 0.25 mg PO Q12H PRN 02/05/17 02/05/17 History Allergies Allergy/AdvReac Type Severity Reaction Status Date / Time aspirin AdvReac Nausea & Verified 02/05/17 18:26 Vomiting Physical Exam Vitals: Vital Signs Temp Pulse Pulse Resp BP BP BP 02/06/17 08:00 96.8 F L 81 18 151/86 02/06/17 04:00 97 F L 90 18 145/89 02/06/17 00:00 97.4 F L 92 18 112/78 02/05/17 22:26 98.5 F 100 16 125/85 02/05/17 21:22 99.2 F 97 16 170/102 02/05/17 20:35 20 02/05/17 18:24 98 F 105 H 20 171/105 Pulse Ox 02/06/17 08:00 99 02/06/17 04:00 95 02/06/17 00:00 97 02/05/17 22:26 98 02/05/17 21:22 97 02/05/17 20:35 02/05/17 18:24 98 Intake and Output 02/05/17 02/06/17 02/06/17 22:59 06:59 14:59 Intake Total 100 860 Balance 100 860 Intake: Amount of Fluid Infused ( 100 ml) Intake, IV Titration 860 Amount Magnesium Sulfate-D5w Pmx 200 1 gm In Dextrose/Water 1 100ml.bag @ 100 mls/hr IVPB Q1H [facility] Rx#: [id number] Sodium Chloride 0.9% 1, 660 000 ml @ 60 mls/hr IV . [id number] [facility] Rx#:[id number] Other: Weight 60 kg 58.9 kg General appearance: The patient is alert, oriented, in no acute distress. HET: Head is normocephalic and atraumatic. Pupils are equal and reactive. Oropharynx is clear without lesions. Neck: Supple without lymphadenopathy. Trachea midline. Heart: S1 S2. Regular rate and rhythm. Right anterior chest wall permacath without erythema bleeding or drainage Lungs: No crackles or wheezes are heard. Abdomen: Soft, epigastric tenderness, nondistended with bowel sounds. No peritoneal signs. No palpable organomegaly or masses. Extremities: Normal skin color and turgor. No cyanosis, rash, ulceration, clubbing, or edema. Radial and pedal pulses are 2/4 bilaterally. Neurological: No focal deficits. Strength and sensation are grossly intact. Results CBC & Chem 7: 02/06/17 06:22 02/06/17 06:22 Labs: Abnormal Lab Results - Last 24 Hours (Table) 02/05/17 02/05/17 02/05/17 Range/Units 19:15 19:15 19:15 RBC 3.39 L (4.30-5.90) m/uL Hgb 11.1 L (13.0-17.5) gm/dL Hct 33.7 L (39.0-53.0) % MCV (80.0-100.0) fL Sodium 136 L (137-145) mmol/L Potassium 6.4 H* (3.5-5.1) mmol/L Chloride 108 H (98-107) mmol/L Carbon Dioxide 7 L* (22-30) mmol/L BUN 89 H* (9-20) mg/dL Creatinine 14.79 H* (0.66-1.25) mg/dL Calcium (8.4-10.2) mg/dL Phosphorus (2.5-4.5) mg/dL Magnesium 1.4 L (1.6-2.3) mg/dL Alkaline Phosphatase 147 H (38-126) U/L Total Creatine Kinase 33 L (55-170) U/L Amylase 1004 H* (30-110) U/L Lipase 40547 H (23-300) U/L 02/06/17 02/06/17 02/06/17 Range/Units 01:19 01:19 06:22 RBC 2.96 L (4.30-5.90) m/uL Hgb 9.8 L (13.0-17.5) gm/dL Hct 30.8 L (39.0-53.0) % MCV 103.9 H (80.0-100.0) fL Sodium (137-145) mmol/L Potassium 5.5 H (3.5-5.1) mmol/L Chloride (98-107) mmol/L Carbon Dioxide (22-30) mmol/L BUN (9-20) mg/dL Creatinine (0.66-1.25) mg/dL Calcium (8.4-10.2) mg/dL Phosphorus (2.5-4.5) mg/dL Magnesium (1.6-2.3) mg/dL Alkaline Phosphatase (38-126) U/L Total Creatine Kinase 26 L (55-170) U/L Amylase (30-110) U/L Lipase (23-300) U/L 02/06/17 02/06/17 Range/Units 06:22 06:22 RBC (4.30-5.90) m/uL Hgb (13.0-17.5) gm/dL Hct (39.0-53.0) % MCV (80.0-100.0) fL Sodium (137-145) mmol/L Potassium 5.7 H (3.5-5.1) mmol/L Chloride 111 H (98-107) mmol/L Carbon Dioxide 9 L* (22-30) mmol/L BUN 92 H* (9-20) mg/dL Creatinine 14.42 H* (0.66-1.25) mg/dL Calcium 8.0 L (8.4-10.2) mg/dL Phosphorus 10.1 H* (2.5-4.5) mg/dL Magnesium (1.6-2.3) mg/dL Alkaline Phosphatase 135 H (38-126) U/L Total Creatine Kinase 25 L (55-170) U/L Amylase 769 H* (30-110) U/L Lipase 7923 H (23-300) U/L Assessment and Plan Plan: Impression: 1. 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 2. End-stage renal disease hemodialysis dependent. 3. History of polysubstance abuse. 4. History of EtOH abuse. 5. Anemia of chronic disease with no clinical evidence of active GI bleed Recommendations: 1. Abdominal ultrasound rule out cirrhosis. 2. Clear liquid diet. 3. Repeat pancreatic enzymes and follow closely. 4. Continued abstinence of alcohol strongly advised. Thank you for this kind referral and the opportunity to participate in the care of your patient. This consultation was discussed with Dr. Alonzo. The impression and plan of care have been directed as dictated.
--- NOTE | 2017-02-06 10:49 | P.HPIM ---
History of Present Illness H&P Date: 02/06/17 Chief Complaint: Abdominal pain This is a 66-year-old -[place] male seen this morning with Dr. Romano. Patient presented to the emergency room with a chief complaint of abdominal pain. Patient has a history of chronic renal failure and is scheduled for dialysis 3 times a week. Patient states he has not been to dialysis for the last 2 weeks. Patient explains that he uses a public transportation bus to get to dialysis. And he has missed his dialysis because he states he was unable to walk to the bus stop due to generalized weakness and dyspnea on exertion. The dressing on his dialysis catheter is labeled 2016 and patient states that was the last day he went to dialysis. He states he has had generalized abdominal pain for the past week and loss of appetite. He experienced one episode of diarrhea yesterday. He was also nauseous for the past few days with an episode of vomiting. Patient denies any shortness of breath at rest. He currently smokes 6-8 cigarettes per day. Denies any alcohol use or illicit drugs. However records indicate that patient has a history of alcohol use and cocaine. Patient states he lives with his brother and uses a cane to ambulate. The patient was found to have severe pancreatitis. Lab work also indicates elevated BUN/creatinine. Patient's potassium was 6.4 in the emergency room and patient was given Kayexalate, insulin, glucose and bicarb. Gastroenterology and nephrology have been consulted. Review of Systems GENERAL: Patient denies fever, chills, weight gain. Positive for weight loss weight loss. RESPIRATORY: Denies cough, sputum production, or hemoptysis. Positive for dyspnea on exertion. CARDIOVASCULAR: Denies chest pain, pressure, palpitations, claudication, or arrhythmias. GI: Positive for abdominal pain, diarrhea, nausea, and vomiting. : Denies urinary frequency, burning, dysuria, or cloudy urine. Denies blood in the urine. MUSCULOSKELETAL: Positive for generalized weakness. Denies pain or tenderness. Past Medical History Past Medical History: Dialysis, Hyperlipidemia, Hypertension, Renal Disease Additional Past Medical History / Comment(s): "spot on liver" History of Any Multi-Drug Resistant Organisms: None Reported Past Surgical History: Orthopedic Surgery Additional Past Surgical History / Comment(s): 07/01/16 NICO. Past Anesthesia/Blood Transfusion Reactions: No Reported Reaction Past Psychological History: Bipolar, Depression Additional Psychological History / Comment(s): Pt resides with one of his brothers. He does not drive. Smoking Status: Current every day smoker Past Alcohol Use History: None Reported Additional Past Alcohol Use History / Comment(s): Pt started smoking around age 7 or 8 yrs. He drinks on a daily basis-brother states he is an alcoholic 02/05 pt denies alcohol use Past Drug Use History: None Reported Additional Drug Use History / Comment(s): Pt states he uses crack cocaine approx 2 weeks ago - Past Family History Father Additional Family Medical History / Comment(s): Father was an alcoholic and of this at the age of 44yrs. Mother Family Medical History: No Reported History Additional Family Medical History / Comment(s): Mother is 88yrs old and healthy. Brother(s) Family Medical History: Diabetes Mellitus Medications and Allergies Home Medications Medication Instructions Recorded Confirmed Type HYDROcodone/APAP 10-325MG [[place] 1 tab PO Q8H 01/03/17 02/05/17 History 10-325] ALPRAZolam [Xanax] 0.25 mg PO Q12H PRN 02/05/17 02/05/17 History Allergies Allergy/AdvReac Type Severity Reaction Status Date / Time aspirin AdvReac Nausea & Verified 02/05/17 18:26 Vomiting Physical Exam Vitals: Vital Signs Temp Pulse Pulse Resp BP BP BP 02/06/17 08:00 96.8 F L 81 18 151/86 02/06/17 04:00 97 F L 90 18 145/89 02/06/17 00:00 97.4 F L 92 18 112/78 02/05/17 22:26 98.5 F 100 16 125/85 02/05/17 21:22 99.2 F 97 16 170/102 02/05/17 20:35 20 02/05/17 18:24 98 F 105 H 20 171/105 Pulse Ox 02/06/17 08:00 99 02/06/17 04:00 95 02/06/17 00:00 97 02/05/17 22:26 98 02/05/17 21:22 97 02/05/17 20:35 02/05/17 18:24 98 Intake and Output 02/05/17 02/06/17 02/06/17 22:59 06:59 14:59 Intake Total 100 860 Balance 100 860 Intake: Amount of Fluid Infused ( 100 ml) Intake, IV Titration 860 Amount Magnesium Sulfate-D5w Pmx 200 1 gm In Dextrose/Water 1 100ml.bag @ 100 mls/hr IVPB Q1H [facility] Rx#: [id number] Sodium Chloride 0.9% 1, 660 000 ml @ 60 mls/hr IV . [id number] [facility] Rx#:[id number] Other: Weight 60 kg 58.9 kg GENERAL: Alert and oriented. Cooperative and Pleasant. RESPIRATORY: Lungs clear bilaterally. No use of accessory muscles. Patient maintaining oxygen saturation greater than 92% on room air. CARDIOVASCULAR: S1 and S2 noted. No murmurs auscultated. No JVD noted. EXTREMITIES: No edema noted. Palpable pedal pulses +2. ABDOMEN: No distention noted. Abdomen soft and round. bowel sounds auscultated 4 quadrants. Tenderness noted upon palpation Results CBC & Chem 7: 02/06/17 06:22 02/06/17 06:22 Labs: Abnormal Lab Results - Last 24 Hours (Table) 02/05/17 02/05/17 02/05/17 Range/Units 19:15 19:15 19:15 RBC 3.39 L (4.30-5.90) m/uL Hgb 11.1 L (13.0-17.5) gm/dL Hct 33.7 L (39.0-53.0) % MCV (80.0-100.0) fL Sodium 136 L (137-145) mmol/L Potassium 6.4 H* (3.5-5.1) mmol/L Chloride 108 H (98-107) mmol/L Carbon Dioxide 7 L* (22-30) mmol/L BUN 89 H* (9-20) mg/dL Creatinine 14.79 H* (0.66-1.25) mg/dL Calcium (8.4-10.2) mg/dL Phosphorus (2.5-4.5) mg/dL Magnesium 1.4 L (1.6-2.3) mg/dL Alkaline Phosphatase 147 H (38-126) U/L Total Creatine Kinase 33 L (55-170) U/L Amylase 1004 H* (30-110) U/L Lipase 78591 H (23-300) U/L 02/06/17 02/06/17 02/06/17 Range/Units 01:19 01:19 06:22 RBC 2.96 L (4.30-5.90) m/uL Hgb 9.8 L (13.0-17.5) gm/dL Hct 30.8 L (39.0-53.0) % MCV 103.9 H (80.0-100.0) fL Sodium (137-145) mmol/L Potassium 5.5 H (3.5-5.1) mmol/L Chloride (98-107) mmol/L Carbon Dioxide (22-30) mmol/L BUN (9-20) mg/dL Creatinine (0.66-1.25) mg/dL Calcium (8.4-10.2) mg/dL Phosphorus (2.5-4.5) mg/dL Magnesium (1.6-2.3) mg/dL Alkaline Phosphatase (38-126) U/L Total Creatine Kinase 26 L (55-170) U/L Amylase (30-110) U/L Lipase (23-300) U/L 02/06/17 02/06/17 Range/Units 06:22 06:22 RBC (4.30-5.90) m/uL Hgb (13.0-17.5) gm/dL Hct (39.0-53.0) % MCV (80.0-100.0) fL Sodium (137-145) mmol/L Potassium 5.7 H (3.5-5.1) mmol/L Chloride 111 H (98-107) mmol/L Carbon Dioxide 9 L* (22-30) mmol/L BUN 92 H* (9-20) mg/dL Creatinine 14.42 H* (0.66-1.25) mg/dL Calcium 8.0 L (8.4-10.2) mg/dL Phosphorus 10.1 H* (2.5-4.5) mg/dL Magnesium (1.6-2.3) mg/dL Alkaline Phosphatase 135 H (38-126) U/L Total Creatine Kinase 25 L (55-170) U/L Amylase 769 H* (30-110) U/L Lipase 7923 H (23-300) U/L Thrombosis Risk Factor Assmnt - Choose All That Apply Any of the Below Risk Factors Present?: Yes Each Factor Represents 1 point: Swollen legs (current) Other Risk Factors: Yes Each Risk Factor Represents 2 Points: Age 61-74 years Thrombosis Risk Factor Assessment Total Risk Factor Score: 3 Thrombosis Risk Factor Assessment Level: Moderate Risk Assessment and Plan (1) Chronic renal failure Narrative/Plan: Patient to receive dialysis 3 times weekly Status: Chronic (2) Hyperkalemia Narrative/Plan: Present on admission, due to chronic renal failure and noncompliance with dialysis Status: Acute (3) Abdominal pain Narrative/Plan: Present on admission, likely due to pancreatitis Status: Acute (4) Tobacco abuse disorder Narrative/Plan: Patient's dates he smokes 6-8 cigarettes a day. Status: Chronic (5) Hypertension Status: Chronic (6) Pancreatitis, alcoholic, acute Status: Acute Plan: Dr. Romano recommends beginning PPN. Consult placed to dietitian. Patient may have water and ice chips. Nephrology consultation. Patient in need of dialysis today. Continue to monitor kidney function. Continue to monitor potassium levels. Will repeat labs. Monitor amylase and lipase levels. GI/DVT prophylaxis Smoking cessation education provided Continue IV hydration. PT consult placed for generalized weakness.
--- NOTE | 2017-02-06 11:34 | P.NPCON ---
History of Present Illness - Reason for Consult end stage renal disease - History of Present Illness Reason for consultation: End-stage renal disease History of present illness: Patient is a 66-year-old male seen in renal consultation for end-stage renal disease. He is maintained on hemodialysis on a Thursday schedule via permacath. Patient has a strong history of noncompliance with dialysis treatments. Patient missed the last 2 weeks of hemodialysis. Patient states he's been feeling weak and that's why he hasn't been able to get to the bus to get to the dialysis center. His potassium level was 6.4 on admission and medical treatment it is 5.7 this morning. He is extremely acidotic with a bicarbonate level of 9. Patient does have history of cocaine abuse but states he hasn't been using cocaine recently. He does have history of chronic pancreatitis. He also complained of abdominal pain on admission which is now improved. He did have 1 episode of emesis. His amylase and lipase were extremely elevated and are trending down with bowel rest. Denies chest pain or shortness of breath. Vital signs are stable. General: The patient appeared well nourished and normally developed. HEENT: Head exam is unremarkable. Neck is without jugular venous distension. LUNGS: Lungs are clear to auscultation and percussion. Breath sounds decreased. HEART: Rate and Rhythm are regular. First and second heart sounds normal. No murmurs, rubs or gallops. ABDOMEN: Abdominal exam reveals normal bowel sounds. Mildly tender to palpation. EXTREMITITES: No clubbing, cyanosis, or edema. Past Medical History Past Medical History: Dialysis, Hyperlipidemia, Hypertension, Renal Disease Additional Past Medical History / Comment(s): "spot on liver" History of Any Multi-Drug Resistant Organisms: None Reported Past Surgical History: Orthopedic Surgery Additional Past Surgical History / Comment(s): 07/01/16 NICO. Past Anesthesia/Blood Transfusion Reactions: No Reported Reaction Past Psychological History: Bipolar, Depression Additional Psychological History / Comment(s): Pt resides with one of his brothers. He does not drive. Smoking Status: Current every day smoker Past Alcohol Use History: None Reported Additional Past Alcohol Use History / Comment(s): Pt started smoking around age 7 or 8 yrs. He drinks on a daily basis-brother states he is an alcoholic 02/05 pt denies alcohol use Past Drug Use History: None Reported Additional Drug Use History / Comment(s): Pt states he uses crack cocaine approx 2 weeks ago - Past Family History Father Additional Family Medical History / Comment(s): Father was an alcoholic and of this at the age of 44yrs. Mother Family Medical History: No Reported History Additional Family Medical History / Comment(s): Mother is 88yrs old and healthy. Brother(s) Family Medical History: Diabetes Mellitus Medications and Allergies Home Medications Medication Instructions Recorded Confirmed Type HYDROcodone/APAP 10-325MG [[place] 1 tab PO Q8H 01/03/17 02/05/17 History 10-325] ALPRAZolam [Xanax] 0.25 mg PO Q12H PRN 02/05/17 02/05/17 History Allergies Allergy/AdvReac Type Severity Reaction Status Date / Time aspirin AdvReac Nausea & Verified 02/05/17 18:26 Vomiting Physical Exam Vitals: Vital Signs Temp Pulse Pulse Resp BP BP BP 02/06/17 08:00 96.8 F L 81 18 151/86 02/06/17 04:00 97 F L 90 18 145/89 02/06/17 00:00 97.4 F L 92 18 112/78 02/05/17 22:26 98.5 F 100 16 125/85 02/05/17 21:22 99.2 F 97 16 170/102 02/05/17 20:35 20 02/05/17 18:24 98 F 105 H 20 171/105 Pulse Ox 02/06/17 08:00 99 02/06/17 04:00 95 02/06/17 00:00 97 02/05/17 22:26 98 02/05/17 21:22 97 02/05/17 20:35 02/05/17 18:24 98 Intake and Output 02/05/17 02/06/17 02/06/17 22:59 06:59 14:59 Intake Total 100 860 Balance 100 860 Intake: Amount of Fluid Infused ( 100 ml) Intake, IV Titration 860 Amount Magnesium Sulfate-D5w Pmx 200 1 gm In Dextrose/Water 1 100ml.bag @ 100 mls/hr IVPB Q1H [facility] Rx#: [id number] Sodium Chloride 0.9% 1, 660 000 ml @ 60 mls/hr IV . [id number] [facility] Rx#:[id number] Other: Weight 60 kg 58.9 kg Results - Lab Results Most recent lab results Calcium 8.0 mg/dL (8.4-10.2) L 02/06/17 06:22 Phosphorus 10.1 mg/dL (2.5-4.5) H* 02/06/17 06:22 Magnesium 2.2 mg/dL (1.6-2.3) 02/06/17 06:22 02/06/17 06:22 02/06/17 06:22 Assessment and Plan Plan: Assessment: #1. End-stage renal disease maintained on hemodialysis on a Thursday schedule via right chest permacath. #2. Strong noncompliance with hemodialysis. #3. Hyperkalemia secondary to chronic kidney disease and noncompliance with dialysis. #4. Anion gap metabolic acidosis secondary to renal failure. #5. Chronic kidney disease mineral bone disease. #6. Acute on chronic pancreatitis. #7. History of illicit drug abuse. Plan: Hemodialysis today and again tomorrow. Add oral sodium bicarbonate supplementation 1300 mg bid. Add PhosLo with meals. Expect further improvement in electrolyte derangement post dialysis. I strongly advised him to be compliant with hemodialysis as outpatient. Gastroenterology following. Now on clear liquid diet. Thank you for the consultation. I will continue to follow the patient with you during his hospital stay.
[2017-02-06 13:46] VITALS: BMI 20.3
[2017-02-06] MEDS: CALCIUM ACETATE 667 MG CAP PO SCH ×3 (13:59→17:17)
[2017-02-06] MEDS: HYDROmorphone 1 MG/ML 1 ML SYRINGE IVP PRN ×3 (14:00→22:12)
[2017-02-06] MEDS: SODIUM CHLORIDE 0.9% 1,000 ML IV SCH (14:50)
--- NOTE | 2017-02-06 15:45 | US ---
EXAMINATION TYPE: US abdomen limited DATE OF EXAM: 02/06/2017 COMPARISON: CT 2017 CLINICAL HISTORY: pancreatitis. EXAM MEASUREMENTS: Liver Length: 14.8 cm Gallbladder Wall: 0.1 cm CBD: 0.4 cm Right Kidney: 9.2 x 4.6 x 4.0 cm Pancreas: Obscured by bowel gas, only small portion seen. duct = 0.4 cm however the pancreas is decr eased in echogenicity. Liver: partially Obscured by overlying bowel gas Gallbladder: with sludge Evidence for sonographic Rodriguez's sign: no CBD: wnl Right Kidney: small in size. Decreased cortical medullary differentiation and cortical thinning with a small cyst mid pole = 0.8 cm IMPRESSION: 1. Decreased echogenicity of the limited visualized pancreatic parenchyma which correspond to pancrea titis. 2. Gallbladder sludge without sonographic evidence of cholecystitis. 3. Medical renal disease involving the imaged right kidney.
[2017-02-06] MEDS: SODIUM BICARBONATE TAB 650 MG TAB PO SCH (20:35)
[2017-02-07] MEDS: HYDROmorphone 1 MG/ML 1 ML SYRINGE IVP PRN ×5 (02:13→20:54)
[2017-02-07 05:13] VITALS: RESP 18
[2017-02-07] MEDS: SODIUM CHLORIDE 0.9% 1,000 ML IV SCH ×2 (06:09→23:36)
[2017-02-07] MEDS: CALCIUM ACETATE 667 MG CAP PO SCH ×3 (06:14→17:19)
[2017-02-07] MEDS: HYDROcodone/APAP 10-325MG 1 EACH TAB PO SCH ×3 (06:14→21:59)
[2017-02-07 06:53] LABS: Basophils % (A) 1 %; CHCM 34.6; Eosinophils # (A) 0.1 k/uL (0-0.7); Eosinophils % (A) 4 %; HCT 25.4 % (39.0-53.0); HDW 2.99; HGB 8.5 gm/dL (13.0-17.5); Luc # (Auto) 0.11; Luc % (Auto) 3; Lymphocytes # (A) 0.9 k/uL (1.0-4.8); Lymphocytes % (A) 25 %; MCHC 33.4 g/dL (31.0-37.0); Mean Platelet Volume 6.8; Monocytes # (A) 0.3 k/uL (0-1.0); Monocytes % (A) 9 %; Neutrophils # (A) 2.1 k/uL (1.3-7.7); Neutrophils % (A) 58 %; RBC 2.64 m/uL (4.30-5.90); RDW 14.4 % (11.5-15.5); WBC 3.7 k/uL (3.8-10.6); WBC (Perox) 3.75
[2017-02-07 07:02] LABS: MCV 95.9 fL (80.0-100.0)
[2017-02-07 07:03] LABS: Calcium 7.8 mg/dL (8.4-10.2); Potassium 3.5 mmol/L (3.5-5.1); Total Bilirubin 0.3 mg/dL (0.2-1.3); Total Protein 5.9 g/dL (6.3-8.2)
[2017-02-07] MEDS: PANTOPRAZOLE 40 MG/10 ML VIAL IV SCH (09:30)
--- NOTE | 2017-02-07 09:39 | P.PN ---
Subjective This is a 66-year-old male with ESRD on dialysis Thursday. He has a history of noncompliance. He came in after having missed 2 weeks of dialysis. He does make urine. He was dialyzed yesterday and 700 mL were taken off. Somewhat better. He came in with abdominal pain. He was found to have severe pancreatitis with lipase 13 398, improved 2430 this morning. Abdominal pain is continuing but less he wants to eat. An ultrasound shows decreased echogenicity of the pancreas consistent with pancreatitis. The cause of his noncompliance is not clear he has history of substance abuse and is a chronic smoker and has COPD. He does have cough and shortness of breath which is stable. He says his makes large amounts of urine. A chest x- ray shows no CHF and is consistent with COPD Objective - Vital Signs Vital signs: Vital Signs Temp 97.5 F L 02/07/17 04:00 Pulse 80 02/07/17 04:00 Resp 18 02/07/17 04:00 BP 139/84 02/07/17 04:00 Pulse Ox 97 02/07/17 04:00 Intake & Output 02/06/17 02/07/17 02/07/17 18:59 06:59 18:59 Intake Total 930 360 Balance 930 360 Weight 58.9 kg 60.7 kg Intake: IV 480 Sodium Chloride 0.9% 1, 480 000 ml @ 60 mls/hr IV . [id number] [facility] Rx#:[id number] Oral 450 360 On examination he seems to be comfortable. Not in any great pain. HEENT exam no JVP neck is supple no facial asymmetry. Lungs are significant for bilateral coarse crackles with good air entry bilaterally no dullness percussion Heart sounds are unremarkable for any murmur rub gallop Abdomen soft nontender no ascites no organomegaly. Extremity exam was no edema. Neurologically awake alert oriented no asterixis no focal motor deficit. - Labs CBC & Chem 7: 02/07/17 06:01 02/07/17 06:01 Labs: Abnormal Lab Results - Last 24 Hours (Table) 02/07/17 02/07/17 Range/Units 06:01 06:01 WBC 3.7 L (3.8-10.6) k/uL RBC 2.64 L (4.30-5.90) m/uL Hgb 8.5 L (13.0-17.5) gm/dL Hct 25.4 L (39.0-53.0) % Lymphocytes # 0.9 L (1.0-4.8) k/uL BUN 33 H (9-20) mg/dL Creatinine 6.33 H* (0.66-1.25) mg/dL Calcium 7.8 L (8.4-10.2) mg/dL Total Protein 5.9 L (6.3-8.2) g/dL Albumin 3.0 L (3.5-5.0) g/dL Amylase 308 H* (30-110) U/L Lipase 2438 H (23-300) U/L Assessment and Plan Plan: Impression. 1. ESRD on dialysis Thursday with severe noncompliance missed 2 weeks of dialysis has been dialyzed yesterday and is on for dialysis today. 2. Severe pancreatitis amylase is improving and lipase is improving. Pain is much better patient wants to eat. 3. Severe noncompliance. 4. Metabolic acidosis with anion gap and gap acidosis. Resolved with bicarb 25 and gap 12. 5. Hyperphosphatemia secondary to ESRD and from noncompliance with dialysis and medications. 5. Anemia hemoglobin came down from 11.1-8.5, reflecting some amount of hemo dilution. Recommendation. Maintained today's dialysis orders. I'll increase his UF to 2 L. He needs to be more compliant with his dialysis and medications and he needs to have an access placed as soon as possible Will check his iron saturation
[2017-02-07] MEDS: ENOXAPARIN 30 MG/0.3 ML SYRINGE SQ SCH (10:56)
[2017-02-07 13:19] LABS: % Iron Saturation 20.7 % (20-50)
--- NOTE | 2017-02-07 13:58 | PN ---
SUBJECTIVE: A 66-year-old white male with acute pancreatitis. His numbers are greatly improved since yesterday. He has been on a clear liquid diet. He got advanced to a regular diet. He had dialysis yesterday and he has got an order for dialysis today. As mentioned, his hemoglobin is 8.5, white count 3.7, BUN 33, creatinine 6.33 today. ( ) is low at 7.8. CARDIOVASCULAR: S1, S2. Lungs are wheeze x4. INTEGUMENTARY: Thin, cachectic. GI: There is tenderness to palpation diffuse abdominal area. HEMATOLOGIC: Negative Homans. ASSESSMENT: 1. Acute on chronic pancreatitis. 2. Chronic end-stage renal failure, noncompliant with dialysis. 3. Acute on chronic anemia. 4. Hypertension acceleration improved. Dialysis will be given today. Regular diet. Check amylase, lipase, CBC, chem panel in the morning. MTDD
--- NOTE | 2017-02-07 15:52 | P.PN ---
Subjective Principal diagnosis: Chronic relapsing pancreatitis Patient is a 66-year-old male with history of polysubstance abuse and alcoholism , end-stage renal disease on hemodialysis, alcohol pancreatitis, bipolar depression, presented with acute abdominal pain 3 days with elevated pancreatic enzymes consistent with acute pancreatitis. No active drinking, last drink around 2 months ago. Patient had Port-A-Cath recently inserted a few months ago for hemodialysis. Dialysis is Thursday. He is non compliant and has missed two weeks of dialysis prior to admission. Denied fever, chills, hematemesis, hematochezia or melena. Has been complaing of poor appetite and lost 10 lbs. Pain improving gradually but still no appetite. Amylase was 1004 02/05 now 308, lipase 13,398 now 2438, Hb 11.1 now 8.5, Cr 14.79 now 6.33 with dialysis. Liver enzymes remain normal. US of GB shows sludge without cholecystitis and decreased echogenecity of pancreatic tissue visualized consistent with pancreatitis. Objective - Vital Signs Vital signs: Vital Signs Temp 96.8 F L 02/07/17 08:40 Pulse 79 02/07/17 08:40 Resp 18 02/07/17 08:40 BP 148/86 02/07/17 08:40 Pulse Ox 98 02/07/17 08:40 Intake & Output 02/06/17 02/07/17 02/07/17 18:59 06:59 18:59 Intake Total 930 1180 Balance 930 1180 Weight 58.9 kg 60.7 kg Intake: IV 480 480 Sodium Chloride 0.9% 1, 480 480 000 ml @ 60 mls/hr IV . [id number] [facility] Rx#:[id number] Oral 450 700 - Exam General appearance: The patient is alert, oriented, in no acute distress. HET: Head is normocephalic and atraumatic. Pupils are equal and reactive. Oropharynx is clear without lesions. Neck: Supple without lymphadenopathy. Trachea midline. Heart: S1 S2. Regular rate and rhythm. Right anterior chest wall permacath without erythema bleeding or drainage Lungs: No crackles or wheezes are heard. Abdomen: Soft, epigastric tenderness, nondistended with bowel sounds. No peritoneal signs. No palpable organomegaly or masses. Extremities: Normal skin color and turgor. No cyanosis, rash, ulceration, clubbing, or edema. Radial and pedal pulses are 2/4 bilaterally. Neurological: No focal deficits. Strength and sensation are grossly intact. - Labs CBC & Chem 7: 02/07/17 06:01 02/07/17 06:01 Labs: Abnormal Lab Results - Last 24 Hours (Table) 02/07/17 02/07/17 02/07/17 Range/Units 06:01 06:01 06:01 WBC 3.7 L (3.8-10.6) k/uL RBC 2.64 L (4.30-5.90) m/uL Hgb 8.5 L (13.0-17.5) gm/dL Hct 25.4 L (39.0-53.0) % Lymphocytes # 0.9 L (1.0-4.8) k/uL BUN 33 H (9-20) mg/dL Creatinine 6.33 H* (0.66-1.25) mg/dL Calcium 7.8 L (8.4-10.2) mg/dL TIBC 237 L (261-462) ug/dL Total Protein 5.9 L (6.3-8.2) g/dL Albumin 3.0 L (3.5-5.0) g/dL Amylase 308 H* (30-110) U/L Lipase 2438 H (23-300) U/L Assessment and Plan Plan: Chronic relapsing pancreatitis likely alcohol related gradually improving. Will continue supportive care and monitor clinical course and pancreas enzymes closely.
[2017-02-07] MEDS: hydrALAZINE HCL 50 MG TAB PO SCH ×3 (17:12→20:55)
[2017-02-07] MEDS: SODIUM BICARBONATE TAB 650 MG TAB PO SCH ×2 (17:13→20:55)
[2017-02-07] MEDS: amLODIPine 5 MG TAB PO SCH (17:22)
[2017-02-08] MEDS: HYDROmorphone 1 MG/ML 1 ML SYRINGE IVP PRN ×5 (01:26→23:00)
[2017-02-08] MEDS: HYDROcodone/APAP 10-325MG 1 EACH TAB PO SCH ×3 (05:02→21:49)
[2017-02-08 06:34] LABS: Calcium 8.5 mg/dL (8.4-10.2); Potassium 3.9 mmol/L (3.5-5.1); Total Bilirubin 0.2 mg/dL (0.2-1.3); Total Protein 5.9 g/dL (6.3-8.2)
[2017-02-08] MEDS: CALCIUM ACETATE 667 MG CAP PO SCH ×3 (06:38→18:00)
[2017-02-08 07:01] LABS: Basophils % (A) 1 %; CH 32.6; CHCM 33.2; Eosinophils # (A) 0.2 k/uL (0-0.7); Eosinophils % (A) 4 %; HDW 3.03; HGB 8.3 gm/dL (13.0-17.5); Luc # (Auto) 0.11; Luc % (Auto) 3; Lymphocytes # (A) 0.9 k/uL (1.0-4.8); Lymphocytes % (A) 22 %; MCH 32.8 pg (25.0-35.0); MCHC 33.1 g/dL (31.0-37.0); Macrocytosis Slight; Monocytes # (A) 0.4 k/uL (0-1.0); Monocytes % (A) 9 %; Neutrophils # (A) 2.5 k/uL (1.3-7.7); Neutrophils % (A) 62 %; RBC 2.53 m/uL (4.30-5.90); RDW 14.5 % (11.5-15.5); WBC 4.1 k/uL (3.8-10.6); WBC (Perox) 4.19
--- NOTE | 2017-02-08 09:07 | P.PN ---
Subjective This is a 66-year-old male with ESRD on dialysis Thursday. He came in with abdominal pain and has severe pancreatitis. He has a history of noncompliance. He came in after having missed 2 weeks of dialysis. He does make urine. He was dialyzed 2 days in a row on Thursday and Thursday. This morning he did have nausea vomiting but is able to keep his breakfast down. Overall he is Somewhat better. His abdominal pain is significantly improved but remains. His amylase and lipase have been improving today's labs though are pending. He came in with lipase 13 398, improved 2430 yesterday morning. An ultrasound shows decreased echogenicity of the pancreas consistent with pancreatitis. He has history of substance abuse and is a chronic smoker and has COPD. He does have cough and shortness of breath which is stable. He says his makes large amounts of urine. A chest x-ray shows no CHF and is consistent with COPD Objective - Vital Signs Vital signs: Vital Signs Temp 98.0 F 02/08/17 04:00 Pulse 90 02/08/17 04:00 Resp 18 02/08/17 04:00 BP 138/78 02/08/17 04:00 Pulse Ox 96 02/08/17 04:00 Intake & Output 02/07/17 02/08/17 02/08/17 18:59 06:59 18:59 Intake Total 1300 240 Balance 1300 240 Weight 60.1 kg Intake: IV 480 Sodium Chloride 0.9% 1, 480 000 ml @ 60 mls/hr IV . [id number] [facility] Rx#:[id number] Oral 820 240 On examination he is comfortable awake alert oriented. HEENT exam no JVP neck is supple no facial asymmetry Lungs are clear to auscultate and percussion good air entry bilaterally Heart sounds are unremarkable no murmur rub gallop Abdomen soft nontender slightly protuberant Extremity exam was no edema Neurologically awake alert oriented No focal motor deficit - Labs CBC & Chem 7: 02/08/17 06:37 02/08/17 05:50 Labs: Abnormal Lab Results - Last 24 Hours (Table) 02/07/17 02/08/17 02/08/17 Range/Units 06:01 05:50 06:37 RBC 2.53 L (4.30-5.90) m/uL Hgb 8.3 L (13.0-17.5) gm/dL Hct 25.0 L (39.0-53.0) % Lymphocytes # 0.9 L (1.0-4.8) k/uL Creatinine 4.30 H (0.66-1.25) mg/dL TIBC 237 L (261-462) ug/dL Alkaline Phosphatase 149 H (38-126) U/L Total Protein 5.9 L (6.3-8.2) g/dL Albumin 3.0 L (3.5-5.0) g/dL Amylase 222 H (30-110) U/L Assessment and Plan Plan: Impression. 1. ESRD on dialysis Thursday with severe noncompliance missed 2 weeks of dialysis has been dialyzed 2 days in a row day before and yesterday 2. Severe pancreatitis amylase is improving and lipase is improving. Pain is much better patient wants to eat. Today's labs are pending 3. Severe noncompliance. 4. Metabolic acidosis with anion gap and gap acidosis. Resolved with bicarb 25 and gap 12, as of yesterday. 5. Hyperphosphatemia . Phosphorus 10.1, secondary to ESRD and from noncompliance with dialysis and medications. 5. Anemia hemoglobin came down from 11.1-8.5> 8.3, reflecting some amount of hemo dilution. 6. Iron deficiency 20% saturation dated 02/07/2017 Recommendation. He'll be dialyzed tomorrow to maintain his schedule of Thursday as well as for the fact that he had missed 2 weeks of dialysis. He needs to be more compliant with his dialysis and medications and he needs to have an access placed as soon as possible We will give him 1 dose of IV further set 125 mg
[2017-02-08] MEDS: SODIUM BICARBONATE TAB 650 MG TAB PO SCH ×2 (09:30→21:49)
[2017-02-08] MEDS: ENOXAPARIN 30 MG/0.3 ML SYRINGE SQ SCH (09:31)
[2017-02-08] MEDS: amLODIPine 5 MG TAB PO SCH (09:31)
[2017-02-08] MEDS: hydrALAZINE HCL 50 MG TAB PO SCH ×3 (09:31→21:49)
[2017-02-08] MEDS: PANTOPRAZOLE 40 MG/10 ML VIAL IV SCH (09:31)
[2017-02-08] MEDS ORDERED: SODIUM FERRIC GLUCONAT-SUCROSE 125 MG in SODIUM CHLORIDE 0.9% 100 ML IVPB ONE (10:00)
--- NOTE | 2017-02-09 00:30 | P.PN ---
Subjective Principal diagnosis: Chronic relapsing pancreatitis Patient is a 66-year-old male with history of polysubstance abuse and alcoholism , end-stage renal disease on hemodialysis, alcohol pancreatitis, bipolar depression, presented with acute abdominal pain 3 days with elevated pancreatic enzymes consistent with acute pancreatitis. No active drinking, last drink around 2 months ago. Patient had Port-A-Cath recently inserted a few months ago for hemodialysis. Dialysis is Thursday. He is non compliant and has missed two weeks of dialysis prior to admission. Denied fever, chills, hematemesis, hematochezia or melena. Has been complaing of poor appetite and lost 10 lbs. Pain improved further and his appetite is improved. Amylase was 1004 02/05 now 222, lipase 13,398 now 1725, Hb 11.1 now 8.3, Cr 14.79 now 4.30 with dialysis. Liver enzymes remain normal. US of GB showed sludge without cholecystitis and decreased echogenecity of pancreatic tissue visualized consistent with pancreatitis. Objective - Vital Signs Vital signs: Vital Signs Temp 97.0 F L 02/08/17 16:15 Pulse 88 02/08/17 16:15 Resp 18 02/08/17 16:15 BP 129/80 02/08/17 16:15 Pulse Ox 98 02/08/17 16:15 Intake & Output 02/08/17 02/08/17 02/09/17 06:59 18:59 06:59 Intake Total 822 Output Total 1000 Balance -178 Weight 60.1 kg Intake: Oral 822 Output: Urine 1000 Other: # Voids 4 - Exam General appearance: The patient is alert, oriented, in no acute distress. HET: Head is normocephalic and atraumatic. Pupils are equal and reactive. Oropharynx is clear without lesions. Neck: Supple without lymphadenopathy. Trachea midline. Heart: S1 S2. Regular rate and rhythm. Right anterior chest wall permacath without erythema bleeding or drainage Lungs: No crackles or wheezes are heard. Abdomen: Soft, epigastric tenderness, nondistended with bowel sounds. No peritoneal signs. No palpable organomegaly or masses. Extremities: Normal skin color and turgor. No cyanosis, rash, ulceration, clubbing, or edema. Radial and pedal pulses are 2/4 bilaterally. Neurological: No focal deficits. Strength and sensation are grossly intact. - Labs CBC & Chem 7: 02/08/17 06:37 02/08/17 05:50 Labs: Abnormal Lab Results - Last 24 Hours (Table) 02/08/17 02/08/17 02/08/17 Range/Units 05:50 05:50 06:37 RBC 2.53 L (4.30-5.90) m/uL Hgb 8.3 L (13.0-17.5) gm/dL Hct 25.0 L (39.0-53.0) % Lymphocytes # 0.9 L (1.0-4.8) k/uL Creatinine 4.30 H (0.66-1.25) mg/dL Alkaline Phosphatase 149 H (38-126) U/L Total Protein 5.9 L (6.3-8.2) g/dL Albumin 3.0 L (3.5-5.0) g/dL Amylase 222 H (30-110) U/L Lipase 1725 H (23-300) U/L Assessment and Plan Plan: Chronic relapsing pancreatitis likely alcohol related gradually improving. Will continue supportive care and monitor clinical course and pancreas enzymes closely. Consider advancing diet and discharge planning if he continues to improve.
[2017-02-09] MEDS: HYDROmorphone 1 MG/ML 1 ML SYRINGE IVP PRN ×3 (02:28→10:44)
[2017-02-09] MEDS: SODIUM CHLORIDE 0.9% 1,000 ML IV SCH ×2 (02:28→08:28)
--- NOTE | 2017-02-09 05:24 | PN ---
SUBJECTIVE: A 66-year-old white male with renal insufficiency who is noncompliant with his dialysis and pancreatitis. His amylase and lipase are improving as days go on. He is on a regular diet. Decreased abdominal pain. Vital signs stable, afebrile. CARDIOVASCULAR: S1 and S2. LUNGS: Transmitted upper airway sounds. GI: Diffuse tenderness. HEMATOLOGY: Negative Homans. ASSESSMENT: 1. Acute pancreatitis. 2. Acute abdominal pain. 3. End-stage renal disease, noncompliance. Possible discharge home tomorrow as the patient is stabilized from medical standpoint. ESTHER
[2017-02-09] MEDS: HYDROcodone/APAP 10-325MG 1 EACH TAB PO SCH ×2 (05:46→14:13)
[2017-02-09 06:29] LABS: CH 32.7; CHCM 33.4; HCT 21.4 % (39.0-53.0); HDW 3.06; HGB 7.1 gm/dL (13.0-17.5); MCH 32.8 pg (25.0-35.0); MCHC 33.3 g/dL (31.0-37.0); MCV 98.4 fL (80.0-100.0); Mean Platelet Volume 7.4; RBC 2.17 m/uL (4.30-5.90); RDW 14.8 % (11.5-15.5); WBC 4.7 k/uL (3.8-10.6); WBC (Perox) 4.28
[2017-02-09 06:41] LABS: Add Differential Manual Differential
[2017-02-09 06:43] LABS: Manual Review Performed; Nucleated Red Blood Cells 0 /100 WBC (0-0); Total Cells Counted 100
[2017-02-09] MEDS: CALCIUM ACETATE 667 MG CAP PO SCH ×2 (06:46→12:03)
[2017-02-09 07:07] LABS: Calcium 8.1 mg/dL (8.4-10.2); Potassium 4.7 mmol/L (3.5-5.1); Total Bilirubin 0.2 mg/dL (0.2-1.3); Total Protein 5.5 g/dL (6.3-8.2)
[2017-02-09] MEDS: ENOXAPARIN 30 MG/0.3 ML SYRINGE SQ SCH (08:28)
[2017-02-09] MEDS: SODIUM BICARBONATE TAB 650 MG TAB PO SCH (08:28)
[2017-02-09] MEDS: PANTOPRAZOLE 40 MG/10 ML VIAL IV SCH (08:28)
[2017-02-09 08:34] VITALS: PULSE 90
[2017-02-09] MEDS ORDERED: SODIUM FERRIC GLUCONAT-SUCROSE 125 MG in SODIUM CHLORIDE 0.9% 100 ML IVPB ONE (09:00)
[2017-02-09] MEDS ORDERED: DARBEPOETIN ALFA 40 MCG/0.4 ML SYRINGE SQ SCH (09:00)
--- NOTE | 2017-02-09 09:04 | P.PN ---
Subjective Patient is seen in follow-up for end-stage renal disease. He is maintained on hemodialysis on a Thursday schedule. Patient missed 2 weeks of hemodialysis and has a strong history of noncompliance with hemodialysis treatments as an outpatient. She presented with abdominal pain. He's noted to have acute on chronic pancreatitis which is improving. He's tolerating oral intake. No vomiting or diarrhea. Vital signs are stable. General: The patient appeared well nourished and normally developed. HEENT: Head exam is unremarkable. Neck is without jugular venous distension. LUNGS: Lungs are clear to auscultation and percussion. Breath sounds decreased. HEART: Rate and Rhythm are regular. First and second heart sounds normal. No murmurs, rubs or gallops. ABDOMEN: Abdominal exam reveals normal bowel sounds. Non-tender and non- distended. EXTREMITITES: No clubbing, cyanosis, or edema. Objective - Vital Signs Vital signs: Vital Signs Temp 98.3 F 02/09/17 08:33 Pulse 90 02/09/17 08:33 Resp 18 02/09/17 08:33 BP 132/73 02/09/17 08:33 Pulse Ox 94 L 02/09/17 08:33 Intake & Output 02/08/17 02/09/17 02/09/17 18:59 06:59 18:59 Intake Total 822 480 100 Output Total 1000 100 Balance -178 380 100 Weight 63.1 kg Intake: IV 480 Sodium Chloride 0.9% 1, 480 000 ml @ 60 mls/hr IV . [id number] Rx#:[id number] Oral 822 100 Output: Urine 1000 100 Other: Voiding Method Urinal Urinal # Voids 4 - Labs CBC & Chem 7: 02/09/17 06:04 02/09/17 06:04 Labs: Abnormal Lab Results - Last 24 Hours (Table) 02/08/17 02/09/17 02/09/17 Range/Units 05:50 06:04 06:04 RBC 2.17 L (4.30-5.90) m/uL Hgb 7.1 L (13.0-17.5) gm/dL Hct 21.4 L (39.0-53.0) % Lymphocytes # (Manual) 0.66 L (1.0-4.8) k/uL Carbon Dioxide 21 L (22-30) mmol/L BUN 30 H (9-20) mg/dL Creatinine 6.00 H* (0.66-1.25) mg/dL Calcium 8.1 L (8.4-10.2) mg/dL Alkaline Phosphatase 248 H (38-126) U/L Total Protein 5.5 L (6.3-8.2) g/dL Albumin 2.7 L (3.5-5.0) g/dL Amylase 258 H (30-110) U/L Lipase 1725 H (23-300) U/L Assessment and Plan Plan: Assessment: #1. End-stage renal disease maintained on hemodialysis on a Thursday schedule via right chest permacath. #2. Strong noncompliance with hemodialysis. #3. Hyperkalemia secondary to chronic kidney disease and noncompliance with dialysis. Improved postdialysis. #4. Anion gap metabolic acidosis secondary to renal failure. #5. Chronic kidney disease mineral bone disease. #6. Acute on chronic pancreatitis. #7. History of illicit drug abuse. #8. Anemia of chronic kidney disease. Iron deficiency noted. Plan: Hemodialysis today. Maintain oral sodium bicarbonate supplementation 1300 mg bid. Continue PhosLo with meals. I strongly advised him to be compliant with hemodialysis as outpatient. Gastroenterology following. Tolerating oral intake. Also stressed the importance of following up with vascular surgery as an outpatient for an AV access. Ferrlicit 125 mg IV once today. This will be second dose. Start Aranesp. Possible discharge after dialysis today.
[2017-02-09 11:31] VITALS: BP 139/82; TEMP 98.9
[2017-02-09] MEDS: hydrALAZINE HCL 50 MG TAB PO SCH (12:06)
--- NOTE | 2017-02-09 12:07 | P.DS ---
Providers Date of admission: 02/05/17 21:39 Expected date of discharge: 02/09/17 Attending physician: Jusitn Romano Consults: 02/05/17 21:41 Consult Physician Stat Consulting Provider: Ruby Mccurdy Consult Reason/Comments: renal failure Do you want consulting provider notified?: Yes 02/05/17 21:43 Consult Physician Urgent Consulting Provider: Kimo Alonzo Consult Reason/Comments: pancreatitis Do you want consulting provider notified?: Yes Primary care physician: Justin Romano - Discharge Diagnosis(es) (1) Chronic renal failure Status: Chronic (2) Hyperkalemia Status: Resolved (3) Abdominal pain Status: Resolved (4) Tobacco abuse disorder Status: Chronic (5) Hypertension Status: Chronic (6) Pancreatitis, alcoholic, acute Status: Resolved Hospital Course: This is a 66-year-old male who presented to the emergency room on 02/05/2017 for abdominal pain and nausea. The patient has a history of chronic renal failure and is scheduled to attend dialysis Thursday and Fridays. The patient had not completed dialysis in 2 weeks. The patient's creatinine upon admission was 14.79 with a potassium of 6.4. Nephrology was consulted and patient received dialysis on February 06 and February 07. Patient also received dialysis today February 09. Nephrology also recommended the patient see a vascular surgeon outpatient for AV access. The patient has a history of alcohol abuse. The patient's amylase and lipase were elevated upon admission and patient was diagnosed with acute pancreatitis. Amylase and lipase have been trending downward each day. Amylase this morning was 259 down from 1004. Patient's lipase level is 1725 down from 13,398. Patient states he is feeling much better and denies chest pain, shortness of breath, abdominal pain. The patient has been tolerating a diet without nausea or vomiting. Patient was recommended to be discharged to an ECF. Patient refusing at this time. Spoke with staff from physical therapy department and states that patient is safe to be discharged home. Spoke with case management who has home care set up for patient. The above impression and plan of care have been discussed and directed by signing physician. Elidia Garcia, nurse practitioner, acting as scribe for signing physician. Patient Condition at Discharge: Serious Plan - Discharge Summary New Discharge Prescriptions: New Calcium Acetate [PhosLo] 667 mg PO TID-W/MEALS cap Sodium Bicarbonate Tab 1,300 mg PO BID tab Continue HYDROcodone/APAP 10-325MG [Whitman 10-325] 1 tab PO Q8H amLODIPine [Norvasc] 5 mg PO DAILY #30 tab hydrALAZINE HCL [Apresoline] 50 mg PO TID #90 tab ALPRAZolam [Xanax] 0.25 mg PO Q12H PRN PRN Reason: Anxiety Discharge Medication List HYDROcodone/APAP 10-325MG [Whitman 10-325] 1 tab PO Q8H 01/03/17 [History] amLODIPine [Norvasc] 5 mg PO DAILY #30 tab 01/19/17 [Rx] hydrALAZINE HCL [Apresoline] 50 mg PO TID #90 tab 01/19/17 [Rx] ALPRAZolam [Xanax] 0.25 mg PO Q12H PRN 02/05/17 [History] Calcium Acetate [PhosLo] 667 mg PO TID-W/MEALS cap 02/09/17 [Rx] Sodium Bicarbonate Tab 1,300 mg PO BID tab 02/09/17 [Rx] Follow up Appointment(s)/Referral(s): Justin Romano MD [Primary Care Provider] - 1 Week Kimo Alonzo MD [STAFF PHYSICIAN] - 1 Week Navin Torres DO [STAFF PHYSICIAN] - 2 Weeks Discharge Disposition: HOME WITH HOME HEALTH SERVICES
[2017-02-09] MEDS: amLODIPine 5 MG TAB PO SCH (14:13)
== END 2017-02-09 15:04 | disposition home health service (06) | DRG 438 ==
LOC: EC 17:44 → 6SEL 21:39
PROVIDERS: ADMIT Family Medicine; ATTEND Family Medicine
PROC: 5A1D60Z (ICD-10-PCS; principal; 2017-02-06)
DX: K85.20 Alcohol induced acute pancreatitis without necrosis or infection (principal); N18.6 End stage renal disease; E87.2 Acidosis; R64 Cachexia; I12.0 Hypertensive chronic kidney disease with stage 5 chronic kidney disease or end stage renal disease; E87.5 Hyperkalemia; J44.9 Chronic obstructive pulmonary disease, unspecified; K86.0 Alcohol-induced chronic pancreatitis; E83.39 Other disorders of phosphorus metabolism; R07.9 Chest pain, unspecified; R19.7 Diarrhea, unspecified; E78.5 Hyperlipidemia, unspecified; F10.20 Alcohol dependence, uncomplicated; R06.2 Wheezing; D63.1 Anemia in chronic kidney disease; R53.1 Weakness; R26.2 Difficulty in walking, not elsewhere classified; K82.8 Other specified diseases of gallbladder; F19.10 Other psychoactive substance abuse, uncomplicated; F31.9 Bipolar disorder, unspecified; F17.210 Nicotine dependence, cigarettes, uncomplicated; Z79.891 Long term (current) use of opiate analgesic; Z86.79 Personal history of other diseases of the circulatory system; Z83.3 Family history of diabetes mellitus; Z81.1 Family history of alcohol abuse and dependence; Z79.899 Other long term (current) drug therapy; Z99.2 Dependence on renal dialysis; Z91.15 Patient's noncompliance with renal dialysis; Z88.6 Allergy status to analgesic agent; Z87.19 Personal history of other diseases of the digestive system; Z71.3 Dietary counseling and surveillance; Z91.19 Patient's noncompliance with other medical treatment and regimen; Z71.6 Tobacco abuse counseling; Z71.41 Alcohol abuse counseling and surveillance of alcoholic; Z68.21 Body mass index [BMI] 21.0-21.9, adult
CPT/HCPCS: 36415; 71020; 74020; 76705; 80053; 82150; 82550; 82553; 83540; 83550; 83690; 83735; 83880; 84100; 84132; 84484; 85025; 85610; 85730; 90935; 93005; 96365; 96375; 99285

== ENCOUNTER 2018-02-26 07:54 | Observation (INO) | payer MEDICARE ==
--- NOTE | 2018-02-26 08:43 | ED ---
General Adult HPI - General Chief complaint: Chest Pain Stated complaint: Chest pain Time Seen by Provider: 02/26/18 08:08 Source: patient, RN notes reviewed, old records reviewed Mode of arrival: wheelchair Limitations: no limitations - History of Present Illness Initial comments: This is a 67-year-old male the ER for evaluation. They presents for evaluation regards to chest pain. Patient significant anterior chest pain. Patient has history of kidney disease history of high blood pressure cholesterol diabetes. Patient presented today for evaluation severe chest pain started this morning. Patient states he still for dialysis tomorrow. He has been keeping up with his normal treatments. His recent travel history or sick contacts no fevers cough or congestion. Patient denies any smoking patient also admits to chills maybe some symptoms of sweating - Related Data Home Medications Medication Instructions Recorded Confirmed HYDROcodone/APAP 10-325MG [[place]on 1 tab PO QID PRN 01/03/17 02/26/18 10-325] Allergies Allergy/AdvReac Type Severity Reaction Status Date / Time aspirin AdvReac Nausea & Verified 02/26/18 08:45 Vomiting Review of Systems ROS Statement: Those systems with pertinent positive or pertinent negative responses have been documented in the HPI. ROS Other: All systems not noted in ROS Statement are negative. Past Medical History Past Medical History: Dialysis, Hyperlipidemia, Hypertension, Renal Disease Additional Past Medical History / Comment(s): "spot on liver", back pain, decreased appetite w/ weight loss. History of Any Multi-Drug Resistant Organisms: None Reported Past Surgical History: Orthopedic Surgery Additional Past Surgical History / Comment(s): 07/01/16 NICO. Past Anesthesia/Blood Transfusion Reactions: No Reported Reaction Past Psychological History: Bipolar, Depression Smoking Status: Current some day smoker Past Alcohol Use History: None Reported Past Drug Use History: Cocaine, Heroin, Marijuana - Past Family History Father Additional Family Medical History / Comment(s): Father was an alcoholic and of this at the age of 44yrs. Mother Family Medical History: No Reported History Additional Family Medical History / Comment(s): Mother is 88yrs old and healthy. Brother(s) Family Medical History: Diabetes Mellitus General Exam Limitations: no limitations General appearance: alert, in no apparent distress Head exam: Present: atraumatic, normocephalic, normal inspection Eye exam: Present: normal appearance, PERRL, EOMI. Absent: scleral icterus, conjunctival injection, periorbital swelling ENT exam: Present: normal exam, mucous membranes moist Neck exam: Present: normal inspection. Absent: tenderness, meningismus, lymphadenopathy Respiratory exam: Present: normal lung sounds bilaterally. Absent: respiratory distress, wheezes, rales, rhonchi, stridor Cardiovascular Exam: Present: regular rate, normal rhythm, normal heart sounds. Absent: systolic murmur, diastolic murmur, rubs, gallop, clicks GI/Abdominal exam: Present: soft, normal bowel sounds. Absent: distended, tenderness, guarding, rebound, rigid Extremities exam: Present: normal inspection, full ROM, normal capillary refill. Absent: tenderness, pedal edema, joint swelling, calf tenderness Back exam: Present: normal inspection Neurological exam: Present: alert, oriented X3, CN II-XII intact Psychiatric exam: Present: normal affect, normal mood Skin exam: Present: warm, dry, intact, normal color. 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 Continue chest pain here in the ER multiple cardiac risk factors. Patient be admitted for cardiac observation - Lab Data Result diagrams: 02/26/18 08:42 02/26/18 08:42 Lab Results 02/26/18 02/26/18 02/26/18 Range/Units 08:42 08:42 08:42 WBC 3.3 L (3.8-10.6) k/uL RBC 3.97 L (4.30-5.90) m/uL Hgb 13.0 (13.0-17.5) gm/dL Hct 39.5 (39.0-53.0) % MCV 99.4 (80.0-100.0) fL MCH 32.8 (25.0-35.0) pg MCHC 33.0 (31.0-37.0) g/dL RDW 13.9 (11.5-15.5) % Plt Count 304 (150-450) k/uL Neutrophils % 57 % Lymphocytes % 30 % Monocytes % 7 % Eosinophils % 3 % Basophils % 1 % Neutrophils # 1.9 (1.3-7.7) k/uL Lymphocytes # 1.0 (1.0-4.8) k/uL Monocytes # 0.2 (0-1.0) k/uL Eosinophils # 0.1 (0-0.7) k/uL Basophils # 0.0 (0-0.2) k/uL PT (9.0-12.0) sec INR (<1.2) APTT (22.0-30.0) sec Sodium 136 L (137-145) mmol/L Potassium 3.8 (3.5-5.1) mmol/L Chloride 93 L (98-107) mmol/L Carbon Dioxide 30 (22-30) mmol/L Anion Gap 13 mmol/L BUN 16 (9-20) mg/dL Creatinine 5.30 H (0.66-1.25) mg/dL Est GFR (CKD-EPI)AfAm 12 (>60 ml/min/1.73 sqM) Est GFR (CKD-EPI)NonAf 10 (>60 ml/min/1.73 sqM) Glucose 78 (74-99) mg/dL Calcium 9.5 (8.4-10.2) mg/dL Magnesium 2.1 (1.6-2.3) mg/dL Total Bilirubin 0.7 (0.2-1.3) mg/dL AST 82 H (17-59) U/L ALT 39 (21-72) U/L Alkaline Phosphatase 191 H (38-126) U/L Total Creatine Kinase 68 (55-170) U/L CK-MB (CK-2) 0.8 (0.0-2.4) ng/mL CK-MB (CK-2) Rel Index 1.2 Troponin I 0.018 (0.000-0.034) ng/mL Total Protein 7.4 (6.3-8.2) g/dL Albumin 4.0 (3.5-5.0) g/dL Lipase 338 H (23-300) U/L 02/26/18 Range/Units 08:42 WBC (3.8-10.6) k/uL RBC (4.30-5.90) m/uL Hgb (13.0-17.5) gm/dL Hct (39.0-53.0) % MCV (80.0-100.0) fL MCH (25.0-35.0) pg MCHC (31.0-37.0) g/dL RDW (11.5-15.5) % Plt Count (150-450) k/uL Neutrophils % % Lymphocytes % % Monocytes % % Eosinophils % % Basophils % % Neutrophils # (1.3-7.7) k/uL Lymphocytes # (1.0-4.8) k/uL Monocytes # (0-1.0) k/uL Eosinophils # (0-0.7) k/uL Basophils # (0-0.2) k/uL PT 10.1 (9.0-12.0) sec INR 1.0 (<1.2) APTT 26.5 (22.0-30.0) sec Sodium (137-145) mmol/L Potassium (3.5-5.1) mmol/L Chloride (98-107) mmol/L Carbon Dioxide (22-30) mmol/L Anion Gap mmol/L BUN (9-20) mg/dL Creatinine (0.66-1.25) mg/dL Est GFR (CKD-EPI)AfAm (>60 ml/min/1.73 sqM) Est GFR (CKD-EPI)NonAf (>60 ml/min/1.73 sqM) Glucose (74-99) mg/dL Calcium (8.4-10.2) mg/dL Magnesium (1.6-2.3) mg/dL Total Bilirubin (0.2-1.3) mg/dL AST (17-59) U/L ALT (21-72) U/L Alkaline Phosphatase (38-126) U/L Total Creatine Kinase (55-170) U/L CK-MB (CK-2) (0.0-2.4) ng/mL CK-MB (CK-2) Rel Index Troponin I (0.000-0.034) ng/mL Total Protein (6.3-8.2) g/dL Albumin (3.5-5.0) g/dL Lipase (23-300) U/L - Radiology Data Radiology results: report reviewed (Chest x-rays negative for acute disease), image reviewed Critical Care Time Critical Care Time: Yes Total Critical Care Time: 31 Disposition Clinical Impression: Pancreatitis, Renal failure, Chest pain Disposition: ADMITTED IP TO THIS [facility] Condition: Undetermined Instructions: Chest Pain (ED) Is patient prescribed a controlled substance at d/c from ED?: No Referrals: Justin Romano MD [Primary Care Provider] - 1-2 days
[2018-02-26 09:01] LABS: Basophils % (A) 1 %; Eosinophils # (A) 0.1 k/uL (0-0.7); Eosinophils % (A) 3 %; HCT 39.5 % (39.0-53.0); Lymphocytes % (A) 30 %; MCH 32.8 pg (25.0-35.0); MCV 99.4 fL (80.0-100.0); Mean Platelet Volume 6.7; Monocytes # (A) 0.2 k/uL (0-1.0); Monocytes % (A) 7 %; Neutrophils # (A) 1.9 k/uL (1.3-7.7); Neutrophils % (A) 57 %; Platelet Count 304 k/uL (150-450); RBC 3.97 m/uL (4.30-5.90); RDW 13.9 % (11.5-15.5); WBC 3.3 k/uL (3.8-10.6)
--- NOTE | 2018-02-26 09:06 | XR ---
EXAMINATION TYPE: XR chest 2V DATE OF EXAM: 02/26/2018 COMPARISON: Prior chest x-ray 04/25/2017 HISTORY: Chest pain TECHNIQUE: Frontal and lateral views of the chest are obtained on 3 images. FINDINGS: Lateral exam is not optimal, patient did not raise his arm. There is been interval removal of the right jugular central venous catheter. There are overlying cardiac leads. Possible clip overly ing the right axilla. There is no focal air space opacity, pleural effusion, or pneumothorax seen. T he cardiac silhouette size is stable accounting for differences in technique. The osseous structure s are intact. The aorta is dense. IMPRESSION: No acute cardiopulmonary process.
[2018-02-26 09:09] LABS: Partial Thromboplastin Time 26.5 sec (22.0-30.0); Prothrombin Time 10.1 sec (9.0-12.0)
[2018-02-26 09:13] LABS: Calcium 9.5 mg/dL (8.4-10.2); Magnesium 2.1 mg/dL (1.6-2.3); Potassium 3.8 mmol/L (3.5-5.1); Total Bilirubin 0.7 mg/dL (0.2-1.3); Total Protein 7.4 g/dL (6.3-8.2)
[2018-02-26 09:35] LABS: Creatine Kinase MB 0.8 ng/mL (0.0-2.4); Troponin I 0.018 ng/mL (0.000-0.034)
[2018-02-26] MEDS ORDERED: LABETALOL 5 MG/ML VIAL MDV IVP STA (09:40)
[2018-02-26] MEDS ORDERED: MORPHINE SULFATE 4 MG/ML SYRINGE IVP STA (09:40)
[2018-02-26] MEDS ORDERED: HEPARIN SODIUM,PORCINE 5,000 UNIT/ML 1 ML VIAL IV ONE (09:51)
[2018-02-26] MEDS ORDERED: ASPIRIN 81 MG PO STA (09:51)
[2018-02-26] MEDS ORDERED: NITROGLYCERIN SL TABS 0.4 MG TAB SUBLINGUAL PRN (09:51)
[2018-02-26] MEDS ORDERED: HEPARIN SODIUM,PORCINE 5,000 UNIT/ML 1 ML VIAL IV PRN (09:51)
[2018-02-26] MEDS ORDERED: HEPARIN SOD,PORK IN 0.45% NACL 25,000 UNIT in 0.45% NACL 1 500ML.BAG IV SCH (10:00)
[2018-02-26] MEDS: MORPHINE SULFATE 4 MG/ML SYRINGE IV PRN ×3 (12:06→20:29)
[2018-02-26] MEDS ORDERED: amLODIPine 5 MG TAB PO SCH (13:15)
--- NOTE | 2018-02-26 13:42 | P.CRDCN ---
History of Present Illness History of present illness: Mr. Guillen is a pleasant 67-year-old male psat medical history significant for end stage renal disease on hemodialysis, hypertension, dyslipidemia, chronic nicotine dependence, alcohol and illicit drug abuse and history of non-compliance. 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 We have been asked to see him in consultation for chest pain. He states he woke up this morning around 0400 with a sharp pain in the mid-sternal region. The pain was not associated with movement or deep inspiration. It came on all of a sudden and has been constant ever since. He was given morphine in ED and achieved no relief of the pain. He denies radiation to the arms, back, neck or jaw. He denies associated shortness of breath, nausea, vomiting, diaphoresis, palpitations or diaphoresis. He underwent dialysis yesterday and states he was having diarrhea multiple times so the treatment was stopped 27 minutes early. He has a diagnosis of hypertension but isn't sure of what medications he takes and admits to not taking anything this morning. He denies cough, fever, chills, PND or orhopnea. EKG reveals sinus mechanism with with no acute ST or T-wave abnormalities. Chest xray negative for an acute cardiopulmonary process. Laboratory data reviewed, hgb 13.0, plt 304, sodium 136, potassium 3.8, creatinine 5.3, AST 82, cardiac enzyme negative x1. He is unsure of his medications, pharmacy was contacted and states he had a prescription for coreg sent in a few weeks ago that was never picked up. Most recent echo performed 2017 revealed preserved LV systolic function with EF 60%. Review of Systems At the time of my exam: CONSTITUTIONAL: Denies fever. Denies chills. EYES: Denies blurred vision. Denies vision changes. Denies eye pain. EARS, NOSE, MOUTH & THROAT: Denies headache. Denies sore throat. Denies ear pain. CARDIOVASCULAR: Complains of sharp midsternal chest pain. Denies shortness of breath. Denies orthopnea. Denies PND. Denies palpitations. RESPIRATORY: Denies cough. GASTROINTESTINAL: Denies abdominal pain. Denies diarrhea. Denies constipation. Denies nausea. Denies vomiting. MUSCULOSKELETAL: Denies myalgias. INTEGUMENTARY: Denies pruitis. Denies rash. NEUROLOGIC: Denies numbness. Denies tingling. Denies weakness. PSYCHIATRIC: Denies anxiety. Denies depression. ENDOCRINE: Denies fatigue. Denies weight change. Denies polydipsia. Denies polyurina. GENITOURINARY: Denies burning, hematuria or urgency with micturation. HEMATOLOGIC: Denies history of anemia. Denies bleeding. Past Medical History Past Medical History: Dialysis, Hyperlipidemia, Hypertension, Renal Disease Additional Past Medical History / Comment(s): "spot on liver", back pain, decreased appetite w/ weight loss. History of Any Multi-Drug Resistant Organisms: None Reported Past Surgical History: Orthopedic Surgery Additional Past Surgical History / Comment(s): 07/01/16 NICO. dialysis graft to right upper arm, jaw surgery (titanium screws) Past Anesthesia/Blood Transfusion Reactions: No Reported Reaction Past Psychological History: Bipolar, Depression Additional Psychological History / Comment(s): Pt resides with one of his brothers. He does not drive. Smoking Status: Current some day smoker Past Alcohol Use History: None Reported Additional Past Alcohol Use History / Comment(s): Pt started smoking around age 7 or 8 yrs. He drinks on a daily basis-brother states he is an alcoholic 12/06 pt denies alcohol use. 04/24/17 pt states he drinks in moderation, 2-3 drinks/day. Past Drug Use History: Cocaine, Heroin, Marijuana Additional Drug Use History / Comment(s): marijauna and cocaine last used 02/2017 - Past Family History Father Additional Family Medical History / Comment(s): Father was an alcoholic and of this at the age of 44yrs. Mother Family Medical History: No Reported History Additional Family Medical History / Comment(s): Mother is 90yrs old and healthy. Brother(s) Family Medical History: Diabetes Mellitus Medications and Allergies Home Medications Medication Instructions Recorded Confirmed Type HYDROcodone/APAP 10-325MG [[place] 1 tab PO QID PRN 01/03/17 02/26/18 History 10-325] Calcium Acetate [PhosLo] 1,334 mg PO TID-W/MEALS 02/26/18 02/26/18 History Allergies Allergy/AdvReac Type Severity Reaction Status Date / Time aspirin AdvReac Nausea & Verified 02/26/18 08:45 Vomiting Physical Exam Vitals: Vital Signs Temp Pulse Pulse Pulse Resp BP BP 02/26/18 12:00 67 02/26/18 11:13 70 16 160/82 02/26/18 11:12 98.2 F 02/26/18 10:29 153/93 02/26/18 10:15 99.1 F 70 18 151/91 02/26/18 09:54 78 18 193/104 02/26/18 08:43 86 87 18 200/104 02/26/18 08:03 97.6 F 90 18 183/101 Pulse Ox 02/26/18 12:00 02/26/18 11:13 99 02/26/18 11:12 02/26/18 10:29 02/26/18 10:15 100 02/26/18 09:54 98 02/26/18 08:43 98 02/26/18 08:03 96 Intake and Output 02/25/18 02/26/18 02/26/18 22:59 06:59 14:59 Other: Weight 63.503 kg Blood pressure 160/82 heart rate 70 afebrile maintaining oxygen saturation on room air GENERAL: This is a 67-year-old -Surinamese male in no apparent distress at the time of my examination. HEENT: Head is atraumatic, normocephalic. Pupils are equal, round. Sclerae anicteric. Conjunctivae are clear. Mucous membranes of the mouth are moist. Neck is supple. There is no jugular venous distention. No carotid bruit is heard. LUNGS: Clear to auscultation no wheezes, rales or rhonchi. No chest wall tenderness is noted on palpation or with deep breathing. HEART: Regular rate and rhythm without murmurs, rubs or gallops. S1 and S2 heard. ABDOMEN: Soft, nontender. Bowel sounds are heard. No organomegaly noted. EXTREMITIES: No evidence of peripheral edema and no calf tenderness noted. VASCULAR: Radial and dorsalis pedis pulses palpated, no evidence of clubbing. NEUROLOGIC: Patient is awake, alert and oriented x3. Results 02/26/18 08:42 02/26/18 08:42 Cardiac Enzymes 02/26/18 02/26/18 Range/Units 08:42 08:42 AST 82 H (17-59) U/L CK-MB (CK-2) 0.8 (0.0-2.4) ng/mL Troponin I 0.018 (0.000-0.034) ng/mL Coagulation 02/26/18 Range/Units 08:42 PT 10.1 (9.0-12.0) sec APTT 26.5 (22.0-30.0) sec CBC 02/26/18 Range/Units 08:42 WBC 3.3 L (3.8-10.6) k/uL RBC 3.97 L (4.30-5.90) m/uL Hgb 13.0 (13.0-17.5) gm/dL Hct 39.5 (39.0-53.0) % Plt Count 304 (150-450) k/uL Comprehensive Metabolic Panel 02/26/18 Range/Units 08:42 Sodium 136 L (137-145) mmol/L Potassium 3.8 (3.5-5.1) mmol/L Chloride 93 L (98-107) mmol/L Carbon Dioxide 30 (22-30) mmol/L BUN 16 (9-20) mg/dL Creatinine 5.30 H (0.66-1.25) mg/dL Glucose 78 (74-99) mg/dL Calcium 9.5 (8.4-10.2) mg/dL AST 82 H (17-59) U/L ALT 39 (21-72) U/L Alkaline Phosphatase 191 H (38-126) U/L Total Protein 7.4 (6.3-8.2) g/dL Albumin 4.0 (3.5-5.0) g/dL Current Medications Generic Name Dose Route Start Last Admin Trade Name Gregq PRN Reason Stop Dose Admin Aspirin 325 mg 02/27/18 09:00 Aspirin PO DAILY [facility] Heparin Sodium (Porcine) 0 unit 02/26/18 09:51 Heparin IV Q6HR PRN Low PTT Protocol Heparin Sodium/Sodium Chloride 500 mls @ 15.24 mls/hr 02/26/18 10:00 10:42 25,000 unit/ Sodium Chloride IV 12 units/kg/hr .Q24H [place] 15.24 mls/hr Administration Protocol 12 UNITS/KG/HR Morphine Sulfate 4 mg 02/26/18 09:51 02/26/18 12:06 Morphine Sulfate (Inj) IV 4 mg Q4HR PRN Administration Chest Pain Nitroglycerin 0.4 mg 02/26/18 09:51 Nitrostat SUBLINGUAL Q5M PRN Chest Pain Intake and Output 02/25/18 02/26/18 02/26/18 22:59 06:59 14:59 Other: Weight 63.503 kg Patient Weight 02/27/18 06:59 Weight 63.503 kg 02/26/18 08:42 02/26/18 08:42 Assessment and Plan Assessment: ASSESSMENT Chest pain, atypical for acute cardiac ischemia Diarrhea Hypertension, noncompliant Chronic renal failure on hemodialysis Thursday Chronic nicotine dependence PLAN Obtain 2D echocardiogram and doppler study to assess cardiac structure and function. Continue to obtain serial cardiac enzymes to rule out an acute coronary event. Add Lopressor 25 mg twice a day. Further recommendations to follow based on clinical course. Thank you kindly for this consultation. Nurse Practitioner note has been reviewed, I agree with a documented findings and plan of care. Patient was seen and examined.
--- NOTE | 2018-02-26 14:03 | ECHOF ---
Referral Reason: MEASUREMENTS -------- HEIGHT: 170.2 cm WEIGHT: 63.5 kg BP: 160/82 IVSd: 1.0 cm (0.6 - 1.1) LVIDd: 4.1 cm (3.9 - 5.3) LVPWd: 1.0 cm (0.6 - 1.1) IVSs: 1.5 cm LVIDs: 1.6 cm LVPWs: 1.4 cm LAESV Index (A-L): 17.12 ml/m Ao Diam: 3.5 cm (2.0 - 3.7) AV Cusp: 1.6 cm (1.5 - 2.6) LA Diam: 2.4 cm (2.7 - 3.8) MV E Zachary: 0.75 m/s MV DecT: 275 ms MV A Zachary: 0.92 m/s MV E/A Ratio: 0.82 RAP: 5.00 mmHg RVSP: 14.68 mmHg FINDINGS -------- Sinus rhythm. This was a technically adequate study. The left ventricular size is normal. Left ventricular wall thickness is normal. Overall left vent ricular systolic function is normal with, an EF between 55 - 60 %. The right ventricle is normal in size and function. Normal LA size by volume 22+/-6 ml/m2. RA appears enlarged. There is mild aortic valve sclerosis. There is no evidence of aortic regurgitation. There is no e vidence of aortic stenosis. The mitral valve leaflets are mildly thickened. There is trace to mild mitral regurgitation. Trace tricuspid regurgitation present. Right ventricular systolic pressure is normal at < 35 mmHg. There is no evidence of pulmonary hypertension. The pulmonic valve was not well visualized. The aortic root size is normal. IVC Not well visulized. There is no pericardial effusion. CONCLUSIONS -------- 1. Sinus rhythm. 2. This was a technically adequate study. 3. The left ventricular size is normal. 4. Left ventricular wall thickness is normal. 5. Overall left ventricular systolic function is normal with, an EF between 55 - 60 %. 6. Normal LA size by volume 22+/-6 ml/m2. 7. RA appears enlarged. 8. There is mild aortic valve sclerosis. 9. The mitral valve leaflets are mildly thickened. 10. There is trace to mild mitral regurgitation. 11. Trace tricuspid regurgitation present. 12. Right ventricular systolic pressure is normal at < 35 mmHg. 13. There is no evidence of pulmonary hypertension. 14. The pulmonic valve was not well visualized. 15. The aortic root size is normal. 16. IVC Not well visulized. 17. There is no pericardial effusion. VOLLEYBALL COACH: Vlad Etienne RDCS
[2018-02-26] MEDS: METOPROLOL TARTRATE 25 MG TAB PO SCH ×2 (14:13→19:28)
[2018-02-26 16:06] LABS: Creatine Kinase MB 0.6 ng/mL (0.0-2.4)
[2018-02-26 16:10] LABS: Troponin I 0.016 ng/mL (0.000-0.034)
[2018-02-26 21:24] LABS: Creatine Kinase MB 0.8 ng/mL (0.0-2.4); Troponin I 0.02 ng/mL (0.000-0.034)
[2018-02-26 23:50] VITALS: RESP 16
[2018-02-27] MEDS: MORPHINE SULFATE 4 MG/ML SYRINGE IV PRN ×2 (00:31→04:32)
[2018-02-27 07:10] LABS: Mean Platelet Volume 6.8; Platelet Count 227 k/uL (150-450)
[2018-02-27 08:17] VITALS: BP 140/81; PULSE 61; TEMP 98.2
[2018-02-27 08:24] LABS: Cholesterol 191 mg/dL (<200); Triglycerides 33 mg/dL (<150)
[2018-02-27 08:32] LABS: LDL Cholesterol,Calculated 10 mg/dL (0-99)
[2018-02-27 08:35] LABS: HDL Cholesterol 174 mg/dL (40-60)
[2018-02-27] MEDS ORDERED: HYDROcodone/APAP 10-325MG 1 EACH TAB PO PRN (08:51)
[2018-02-27] MEDS ORDERED: amLODIPine 5 MG TAB PO SCH (09:00)
[2018-02-27] MEDS: ASPIRIN 325 MG TAB PO SCH ×2 (09:10→09:14)
[2018-02-27] MEDS: METOPROLOL TARTRATE 25 MG TAB PO SCH (09:10)
--- NOTE | 2018-02-27 10:22 | PN ---
PROGRESS NOTE Mr. Guillen is a gentleman admitted yesterday with discomfort in the chest and has chronic pain issues. Pain is very atypical. Pain has resolved. He is comfortable, resting. His echo is unremarkable. He has had a stress test according to the patient 18 months ago which was normal. His vital signs are stable. Blood pressure control is good. He is going to have dialysis around 12 noon today. I am recommending that he can be discharged and go for his dialysis near [facility] today. There is no contraindication for discharge. His medication should be continued and he should have an outpatient stress testing performed. This was communicated to the patient. Blood pressure today is 137/74, pulse rate is 70 per minute. There is no JVD or carotid bruit, S1-S2 heard normally. There is a short systolic murmur audible at the left sternal border. Lungs are clear. Abdomen is soft, nontender. Lower extremities reveal diminished pulses. No edema. Central nervous system is normal. IMPRESSION: 1. Atypical chest pain. 2. End-stage renal disease, on hemodialysis. 3. History of pain, on pain medications. 4. Chronic tobacco abuse. RECOMMENDATIONS: Patient can be discharged today and go for his dialysis. He is advised to have an outpatient stress testing performed and this will be arranged by his primary care physician. Thank you very much for the consult. DELGADO / ESTERN: [id number] /
--- NOTE | 2018-03-24 08:18 | HP ---
HISTORY AND PHYSICAL CHIEF COMPLAINT: A 67-year-old male with end-stage renal disease, hypertension, dyslipidemia, chronic nicotine addiction, history noncompliance, was admitted to the hospital with sharp pain in his midsternal region. He came into the hospital with chest pain for Cardiology evaluation to rule out myocardial infarction. REVIEW OF SYSTEMS: Fourteen point review of systems negative except for weakness, fatigue, chronic lumbar back pain and significant weakness. Otherwise, 14-point review of systems negative except for mentioned in HPI. PAST MEDICAL HISTORY: Renal disease, hypertension, dyslipidemia, end-stage renal disease, lumbar disc disease, history of drug abuse and cocaine use. SURGERIES: He has had NICO, dialysis graft to the right upper arm, jaw surgery titanium screws. He has history of bipolar depression. He is a current everyday smoker. At this time past drug use is cocaine, heroin, marijuana. PAST FAMILY HISTORY: Father alcoholic. Mother healthy. Father had diabetes mellitus and drug abuse. HOME MEDICATIONS: Please see list. ALLERGIES: Allergies are ASPIRIN. PHYSICAL EXAMINATION: VITAL SIGNS: Temp 98.2, pulse 60s, respiratory 16 to 18, blood pressure 180s to 150s to 200s over 90 to 100. CARDIOVASCULAR: S1, S2. LUNGS: Transmitted upper airway sounds. ABDOMEN: Soft, nontender. HEMATOLOGY: Negative Homans. VASCULAR: Normal dorsalis pedis, posterior tibial and radial pulse. NEUROLOGIC: Alert and oriented x3. PSYCH: Fair mood and affect. White count 3.3, hemoglobin 13. Sodium 136, potassium 3.3, BUN 16, creatinine 5.3. ASSESSMENT: 1. Atypical chest pain. 2. Diarrhea. 3. Hypertension. 4. Chronic renal failure. 5. Chronic nicotine addiction. 6. End-stage renal disease. He will get dialysis while in the hospital. Cardiology will see him to rule out myocardial infarction and work him up for chest pain. Chest x-ray is reviewed, is negative for infiltrates. MMODL / IJN: [id number] /
== END 2018-02-27 10:00 | disposition home or self-care (01) ==
LOC: EEVIPCON 07:54 → EC 07:54 → 3OBS 09:51
PROVIDERS: ADMIT Family Medicine; ATTEND Family Medicine
DX: R07.89 Other chest pain (principal); I12.0 Hypertensive chronic kidney disease with stage 5 chronic kidney disease or end stage renal disease; N18.6 End stage renal disease; Z91.19 Patient's noncompliance with other medical treatment and regimen; E78.5 Hyperlipidemia, unspecified; F31.9 Bipolar disorder, unspecified; F17.200 Nicotine dependence, unspecified, uncomplicated; R19.7 Diarrhea, unspecified; G89.29 Other chronic pain; M54.5 Low back pain; R63.4 Abnormal weight loss; Z99.2 Dependence on renal dialysis; Z79.899 Other long term (current) drug therapy; Z88.6 Allergy status to analgesic agent; Z86.59 Personal history of other mental and behavioral disorders; Z81.1 Family history of alcohol abuse and dependence; Z83.3 Family history of diabetes mellitus
CPT/HCPCS: 96375 ×2; 96376 ×2; 96374; 99291; 36415; 93005; 93306; 80061; 80053; 82550; 82553; 83690; 83735; 84484; 85025; 85049; 85610; 85730; 71046; G0378 ×2; J2270 ×2; J1644 ×2

== ENCOUNTER 2018-04-05 15:10 | Inpatient (IN) | payer MEDICARE ==
--- NOTE | 2018-04-05 15:51 | ED ---
General Adult HPI - General Source: patient Mode of arrival: wheelchair Limitations: no limitations <John Garcia - Last Filed: 04/05/18 17:02> <Clyde Sandra - Last Filed: 04/05/18 21:39> - General Chief complaint: Psychiatric Symptoms Stated complaint: homicidal/suicidal, ab pain, sob,voices/songs - History of Present Illness Initial comments: Dictation was produced using [employer] dictation software. please excuse any grammatical, word or spelling errors. Chief Complaint: 67-year-old -[place]ym[place] male with multiple comorbidities including end-stage renal disease. He gets dialysis Thursday, and Thursday presents with, cramping and suicidal ideation. History of Present Illness: This 67-year-old male with multiple comorbidities. He has past medical history of end-stage renal disease. He is on dialysis Thursday, and Thursday. His rn transport is Dr. Mccurdy. Patient is drinking alcohol today. He states he drinks EtOH 2-3 times a week. Patient's last dialysis was Thursday. Today presents with abdominal cramping to the epigastric region. Denies any nausea or vomiting. Patient states she's feeling suicidal. Patient wants to jump off the bridge. Patient states he's been suicidal in the past. Patient gets dialysis through a right upper extremity dialysis access. The ROS documented in this emergency department record has been reviewed and confirmed by me. Those systems with pertinent positive or negative responses have been documented in the HPI. All other systems are other negative and/or noncontributory. (John Garcia) - Related Data Home Medications Medication Instructions Recorded Confirmed Hydrocodone/Acetaminophen [[place] 1 tab PO Q6HR PRN 04/05/18 04/05/18 5-325] Allergies Allergy/AdvReac Type Severity Reaction Status Date / Time aspirin AdvReac Nausea & Verified 04/05/18 16:44 Vomiting Review of Systems ROS Other: All systems not noted in ROS Statement are negative. <John Garcia - Last Filed: 04/05/18 17:02> ROS Other: All systems not noted in ROS Statement are negative. <Clyde Sandra - Last Filed: 04/05/18 21:39> ROS Statement: Those systems with pertinent positive or pertinent negative responses have been documented in the HPI. Past Medical History Past Medical History: Dialysis, Hyperlipidemia, Hypertension, Renal Disease Additional Past Medical History / Comment(s): "spot on liver", back pain, decreased appetite w/ weight loss. History of Any Multi-Drug Resistant Organisms: None Reported Past Surgical History: Orthopedic Surgery Additional Past Surgical History / Comment(s): 07/01/16 NICO. dialysis graft to right upper arm, jaw surgery (titanium screws) Past Anesthesia/Blood Transfusion Reactions: No Reported Reaction Past Psychological History: Bipolar, Depression Smoking Status: Current every day smoker Past Alcohol Use History: Occasional Past Drug Use History: Cocaine, Heroin, Marijuana - Past Family History Father Additional Family Medical History / Comment(s): Father was an alcoholic and of this at the age of 44yrs. Mother Family Medical History: No Reported History Additional Family Medical History / Comment(s): Mother is 90yrs old and healthy. Brother(s) Family Medical History: Diabetes Mellitus <John Garcia - Last Filed: 04/05/18 17:02> General Exam Limitations: no limitations <John Garcia - Last Filed: 04/05/18 17:02> <Clyde Sandra - Last Filed: 04/05/18 21:39> - General Exam Comments Initial Comments: PHYSICAL EXAM: General Impression: Alert and oriented x3, not in acute distress, smells of EtOH HEENT: Normocephalic atraumatic, extra-ocular movements intact, pupils equal and reactive to light bilaterally, mucous membranes moist. Cardiovascular: Heart regular rate and rhythm, S1&S2 audible, no murmurs, rubs or gallops Chest: Lungs clear to auscultation bilaterally, no rhonchi, no wheeze, no rales Abdomen: Bowel sounds present, abdomen soft, non-tender, non-distended, no organomegaly Musculoskeletal: Pulses present and equal in all extremities, no peripheral edema Motor: Power 5/5 bilaterally, no focal deficits noted Neurological: CN II-XII grossly intact, no focal motor or sensory deficits noted Skin: Intact with no visualized rashes, right brachial AV access site with palpable thrill and audible bruit Psych: Normal affect and mood (John Garcia) Course <John Garcia - Last Filed: 04/05/18 17:02> <Clyde Sandra - Last Filed: 04/05/18 21:39> Vital Signs 04/05/18 04/05/18 04/05/18 15:38 18:25 20:09 Temperature 98.2 F Pulse Rate 85 96 82 Respiratory 20 18 16 Rate Blood Pressure 183/87 196/115 173/103 O2 Sat by Pulse 97 97 97 Oximetry 04/05/18 20:38 Temperature Pulse Rate 78 Respiratory 18 Rate Blood Pressure 136/96 O2 Sat by Pulse 98 Oximetry - Reevaluation(s) Reevaluation #1: 04/05/18 21:38 Patient was endorsed me at our shift change pending lab work. Need of dialysis. Patient will be added admitted for treatment of chronic renal failure dialysis additionally he will have a psychiatric consultation. In addition to being depressed and suicidal he apparently is been hearing voices. ( Clyde Sandra) Medical Decision Making - Lab Data Result diagrams: 04/05/18 16:20 04/05/18 16:20 <John Garcia - Last Filed: 04/05/18 17:02> - Lab Data Result diagrams: 04/05/18 16:20 04/05/18 16:20 <Clyde Sandra - Last Filed: 04/05/18 21:39> - Medical Decision Making ED course: 67-year-old male with multiple comorbidities including end-stage renal disease presents with suicidal ideation and abdominal cramping. Patient is drinking EtOH today. Vital signs upon arrival are within acceptable limits. He is hypertensive 183/87. She is compliant with Allis is. Last dialysis was Thursday. Patient appears to be depressed. He has a flat affect. Patient has detailed suicidal intent.Laboratory evaluation obtained. CBC unremarkable. Coag panel unremarkable. Patient has elevated potassium of 5.6. Crit is 8.12 which is at the higher limit of normal for patient. Rest of labs unremarkable. EKG did not show any signs of electrolyte derangement. Patient medically cleared for EPS evaluation. Nephrology put on consult waiting EPS evaluation should patient in dialysis in the near future. Patient not showing any signs of overload at this time. Patient is signed out to oncoming physician for follow-up of EPS recommendations. EKG interpretation: Ventricular rate 79, normal sinus rhythm, CO interval 1:30, care is 82, QTC 472. No CO prolongation, no QTC prolongation, no ST or T-wave changes noted. Overall, this EKG is unremarkable (John Garcia) - Lab Data Lab Results 04/05/18 04/05/18 04/05/18 Range/Units 16:20 16:20 16:20 WBC 4.1 (3.8-10.6) k/uL RBC 3.41 L (4.30-5.90) m/uL Hgb 11.4 L (13.0-17.5) gm/dL Hct 34.3 L (39.0-53.0) % MCV 100.6 H (80.0-100.0) fL MCH 33.3 (25.0-35.0) pg MCHC 33.1 (31.0-37.0) g/dL RDW 14.7 (11.5-15.5) % Plt Count 240 (150-450) k/uL Neutrophils % 53 % Lymphocytes % 30 % Monocytes % 8 % Eosinophils % 4 % Basophils % 1 % Neutrophils # 2.2 (1.3-7.7) k/uL Lymphocytes # 1.2 (1.0-4.8) k/uL Monocytes # 0.3 (0-1.0) k/uL Eosinophils # 0.2 (0-0.7) k/uL Basophils # 0.0 (0-0.2) k/uL Macrocytosis Slight PT 10.2 (9.0-12.0) sec INR 1.0 (<1.2) APTT 24.9 (22.0-30.0) sec Sodium 140 (137-145) mmol/L Potassium 5.6 H (3.5-5.1) mmol/L Chloride 101 (98-107) mmol/L Carbon Dioxide 24 (22-30) mmol/L Anion Gap 15 mmol/L BUN 28 H (9-20) mg/dL Creatinine 8.12 H* (0.66-1.25) mg/dL Est GFR (CKD-EPI)AfAm 7 (>60 ml/min/1.73 sqM) Est GFR (CKD-EPI)NonAf 6 (>60 ml/min/1.73 sqM) Glucose 83 (74-99) mg/dL Calcium 9.3 (8.4-10.2) mg/dL Magnesium 1.9 (1.6-2.3) mg/dL Total Bilirubin 0.9 (0.2-1.3) mg/dL AST 82 H (17-59) U/L ALT 32 (21-72) U/L Alkaline Phosphatase 200 H (38-126) U/L Troponin I (0.000-0.034) ng/mL Total Protein 7.6 (6.3-8.2) g/dL Albumin 4.0 (3.5-5.0) g/dL Lipase 255 (23-300) U/L 04/05/18 Range/Units 16:20 WBC (3.8-10.6) k/uL RBC (4.30-5.90) m/uL Hgb (13.0-17.5) gm/dL Hct (39.0-53.0) % MCV (80.0-100.0) fL MCH (25.0-35.0) pg MCHC (31.0-37.0) g/dL RDW (11.5-15.5) % Plt Count (150-450) k/uL Neutrophils % % Lymphocytes % % Monocytes % % Eosinophils % % Basophils % % Neutrophils # (1.3-7.7) k/uL Lymphocytes # (1.0-4.8) k/uL Monocytes # (0-1.0) k/uL Eosinophils # (0-0.7) k/uL Basophils # (0-0.2) k/uL Macrocytosis PT (9.0-12.0) sec INR (<1.2) APTT (22.0-30.0) sec Sodium (137-145) mmol/L Potassium (3.5-5.1) mmol/L Chloride (98-107) mmol/L Carbon Dioxide (22-30) mmol/L Anion Gap mmol/L BUN (9-20) mg/dL Creatinine (0.66-1.25) mg/dL Est GFR (CKD-EPI)AfAm (>60 ml/min/1.73 sqM) Est GFR (CKD-EPI)NonAf (>60 ml/min/1.73 sqM) Glucose (74-99) mg/dL Calcium (8.4-10.2) mg/dL Magnesium (1.6-2.3) mg/dL Total Bilirubin (0.2-1.3) mg/dL AST (17-59) U/L ALT (21-72) U/L Alkaline Phosphatase (38-126) U/L Troponin I 0.015 (0.000-0.034) ng/mL Total Protein (6.3-8.2) g/dL Albumin (3.5-5.0) g/dL Lipase (23-300) U/L Disposition <John Garcia - Last Filed: 04/05/18 17:02> <Clyde Sandra - Last Filed: 04/05/18 21:39> Clinical Impression: Chronic renal failure, Poorly-controlled hypertension, Suicidal ideation, Depression, Psychosis Disposition: ADMITTED IP TO THIS HOSP Condition: Stable Referrals: Justin Romano MD [Primary Care Provider] - 1-2 days
[2018-04-05 16:34] LABS: Basophils % (A) 1 %; Eosinophils # (A) 0.2 k/uL (0-0.7); Eosinophils % (A) 4 %; HCT 34.3 % (39.0-53.0); HGB 11.4 gm/dL (13.0-17.5); Lymphocytes # (A) 1.2 k/uL (1.0-4.8); Lymphocytes % (A) 30 %; MCH 33.3 pg (25.0-35.0); MCHC 33.1 g/dL (31.0-37.0); MCV 100.6 fL (80.0-100.0); Macrocytosis Slight; Mean Platelet Volume 6.7; Monocytes # (A) 0.3 k/uL (0-1.0); Monocytes % (A) 8 %; Neutrophils # (A) 2.2 k/uL (1.3-7.7); Neutrophils % (A) 53 %; Platelet Count 240 k/uL (150-450); RBC 3.41 m/uL (4.30-5.90); RDW 14.7 % (11.5-15.5); WBC 4.1 k/uL (3.8-10.6)
[2018-04-05 16:45] LABS: Calcium 9.3 mg/dL (8.4-10.2); Magnesium 1.9 mg/dL (1.6-2.3); Potassium 5.6 mmol/L (3.5-5.1); Total Bilirubin 0.9 mg/dL (0.2-1.3); Total Protein 7.6 g/dL (6.3-8.2)
[2018-04-05 16:52] LABS: Partial Thromboplastin Time 24.9 sec (22.0-30.0); Prothrombin Time 10.2 sec (9.0-12.0)
[2018-04-05] MEDS ORDERED: cloNIDine HCL 0.1 MG TAB PO STA (18:36)
[2018-04-05] MEDS ORDERED: HYDROcodone/APAP 5-325MG 1 EACH TAB PO STA (20:02)
[2018-04-05] MEDS ORDERED: cloNIDine HCL 0.2 MG TAB PO STA (20:02)
--- NOTE | 2018-04-05 21:09 | XR ---
EXAMINATION TYPE: XR KUB - 2 SUPINE VIEWS DATE OF EXAM: 04/05/2018 COMPARISON: 04/24/2017 HISTORY: Abdominal pain TECHNIQUE: 2 supine views FINDINGS: The visualized lung bases and pleural spaces are negative. No acute soft tissue or skeletal abdominal pelvic process is evident. The bowel gas pattern shows distended loops of small bowel in the right upper quadrant, but not dilat ed loops of bowel. There is gas seen throughout the colon. Negative for bowel obstruction. No pneumat osis. Note: However, pneumoperitoneum cannot be excluded with these radiographs as they are taken with the patient in the supine position. IMPRESSION: NO ACUTE RADIOGRAPHIC PROCESS.
[2018-04-05] MEDS ORDERED: NALOXONE 0.4 MG/ML 1 ML VIAL IV PRN (21:41)
[2018-04-06] MEDS: HYDROcodone/APAP 5-325MG 1 EACH TAB PO PRN ×4 (02:29→21:20)
[2018-04-06] MEDS: cloNIDine HCL 0.1 MG TAB PO SCH ×3 (03:41→21:20)
--- NOTE | 2018-04-06 12:53 | P.CN ---
Psychiatric Consult - . Consult date: 04/06/18 Consult:: 04/06/18 12:14 Depression and suicidal Assessment and Plan Assessment: General Chief complaint: Psychiatric Symptoms Stated complaint: homicidal/suicidal, ab pain, sob,voices/songs - History of Present Illness Initial comments: Chief Complaint: 67-year-old -Marshallese male with multiple comorbidities including end-stage renal disease. He gets dialysis Thursday, and Thursday presents with, cramping and suicidal ideation. History of Present Illness: This 67-year-old male with multiple comorbidities. He has past medical history of end-stage renal disease. He is on dialysis Thursday, and Thursday. His electrical supervisor is Dr. Mccurdy. Patient is drinking alcohol today. He states he drinks EtOH 2-3 times a week. Patient's last dialysis was Thursday. Today presents with abdominal cramping to the epigastric region. Denies any nausea or vomiting. Patient states he's feeling suicidal. Patient wants to jump off the bridge. Patient states he's been suicidal in the past. Patient gets dialysis through a right upper extremity dialysis access. Past Medical History Past Medical History: Dialysis, Hyperlipidemia, Hypertension, Renal Disease Additional Past Medical History / Comment(s): "spot on liver", back pain, decreased appetite w/ weight loss. History of Any Multi-Drug Resistant Organisms: None Reported Past Surgical History: Orthopedic Surgery Additional Past Surgical History / Comment(s): 07/01/16 NICO. dialysis graft to right upper arm, jaw surgery (titanium screws) Past Anesthesia/Blood Transfusion Reactions: No Reported Reaction Past Psychological History: Bipolar, Depression Smoking Status: Current every day smoker Past Alcohol Use History: Occasional Past Drug Use History: Cocaine, Heroin, Marijuana - Past Family History Father Additional Family Medical History / Comment(s): Father was an alcoholic and of this at the age of 44yrs. Mother Family Medical History: No Reported History Additional Family Medical History / Comment(s): Mother is 90yrs old and healthy. Brother(s) Family Medical History: Diabetes Mellitus Musculoskeletal Examination - Abnormal/Involuntary Movements: [ tremors] Strength: [greater than antigravity (weakness:] Muscle Tone: [flaccid] Gait: [limping, in wheelchair] Station: [ unsteady Mental Status Examination - General Appearance: [disheveled, ,appears older than stated age] Speech/Language: [ slow, rapid, slurred, rambled, mumbling, hesitant, halting, soft] Attitude/Behavior: [cooperative, guarded, irritable, withdrawn, indifferent] Mood: [ depressed, anxious, fearful, hopelessness] Affect: [ flat, incongruent, labile, blunted constricted] Orientation: [not to time/date time, person, place situation] Thought Content: [wnl Risk Factors: [suicidal (ideations, plan) Perception: [wnl, Thought Processes: [concrete, circumstantial, tangential Concentration/Attention Span: [ impaired] [Per observation and interview with the patient] Recent Memory: [ impaired] [0 out of 3 in 3 minutes] Remote Memory: [ impaired] [past events, as related history] Intelligence: [below average, ] [based on history, based on vocabulary, syntax, grammar, and content] Judgement: [ poor] [per patient's behavior/history of present illness] Insight: [ poor] [understanding severity of illness/history of present illness] Clinical impression: This is a 67-year-old -Marshallese male with end-stage renal disease who is now claiming to have suicidal ideation. He has not been hospitalized in our facility before but has been at the [facility] in [place]. Recommendations: Due to his end-stage renal disease and his suicidal ideation and depression with anxiety would be best that he transferred to [facility] facility that can handle medical issues such as end-stage renal disease to treat his depression. Buck Fernandez D.O. PhD attending psychiatrist Caitlin Hernandez (1) Depression Current Visit: Yes Status: Acute Priority: Medium Code(s): F32.9 - MAJOR DEPRESSIVE DISORDER, SINGLE EPISODE, UNSPECIFIED SNOMED Code(s): 03024631 (2) Suicidal ideation Current Visit: Yes Status: Acute Priority: High Code(s): R45.851 - SUICIDAL IDEATIONS SNOMED Code(s): 0287372 Plan: Consider transfer to [facility] facility for treatment of depression Time with Patient: Less than 30
--- NOTE | 2018-04-06 14:11 | P.NPCON ---
History of Present Illness - Reason for Consult end stage renal disease - History of Present Illness Reason for consultation: End-stage renal disease History of present illness: Patient is a 67-year-old male seen in renal consultation for end-stage renal disease. He is maintained on hemodialysis on a Thursday schedule via right upper extremity AV fistula. Patient presented to the hospital due to suicidal ideation. Patient had the feeling of jumping off a bridge. Currently feeling better now. He has been evaluated by psychiatry. He is being considered for transfer to [facility] in [place]. Denies chest pain or shortness of breath. Oral intake is good. No fever or chills. No vomiting or diarrhea. Hemodynamically stable. Last hemodialysis was on Thursday. Vital signs are stable. General: The patient appeared well nourished and normally developed. HEENT: Head exam is unremarkable. Neck is without jugular venous distension. LUNGS: Lungs are clear to auscultation and percussion. Breath sounds decreased. HEART: Rate and Rhythm are regular. First and second heart sounds normal. No murmurs, rubs or gallops. ABDOMEN: Abdominal exam reveals normal bowel sounds. Non-tender and non- distended. No evidence of peritonitis. EXTREMITITES: No clubbing, cyanosis, or edema. Past Medical History Past Medical History: Dialysis, Hyperlipidemia, Hypertension, Renal Disease Additional Past Medical History / Comment(s): "spot on liver", back pain History of Any Multi-Drug Resistant Organisms: None Reported Past Surgical History: Orthopedic Surgery Additional Past Surgical History / Comment(s): 07/01/16 NICO. dialysis graft to right upper arm, jaw surgery (titanium screws) Past Anesthesia/Blood Transfusion Reactions: No Reported Reaction Past Psychological History: Bipolar, Depression Additional Psychological History / Comment(s): Pt resides with one of his brothers. He does not drive. Smoking Status: Current every day smoker Past Alcohol Use History: Occasional Additional Past Alcohol Use History / Comment(s): Pt started smoking around age 7 or 8 yrs. He drinks on a daily basis-brother states he is an alcoholic 12/06 pt denies alcohol use. 04/24/17 pt states he drinks in moderation, 2-3 drinks/day. Past Drug Use History: Cocaine, Heroin, Marijuana Additional Drug Use History / Comment(s): marijauna and cocaine last used 02/2017 - Past Family History Father Additional Family Medical History / Comment(s): Father was an alcoholic and at 44. Mother Family Medical History: No Reported History Additional Family Medical History / Comment(s): Mother is healthy. Brother(s) Family Medical History: Diabetes Mellitus Medications and Allergies Home Medications Medication Instructions Recorded Confirmed Type Hydrocodone/Acetaminophen [[place] 1 tab PO Q6HR PRN 04/05/18 04/05/18 History 5-325] Allergies Allergy/AdvReac Type Severity Reaction Status Date / Time aspirin AdvReac Nausea & Verified 04/05/18 16:44 Vomiting Physical Exam Vitals: Vital Signs Temp Pulse Pulse Resp BP BP Pulse Ox 04/06/18 07:00 98.1 F 71 20 137/69 97 04/06/18 00:58 98 F 67 20 138/83 94 L 04/05/18 22:00 72 16 110/89 97 04/05/18 20:38 78 18 136/96 98 04/05/18 20:09 82 16 173/103 97 04/05/18 18:25 96 18 196/115 97 04/05/18 15:38 98.2 F 85 20 183/87 97 Intake and Output 04/05/18 04/06/18 04/06/18 22:59 06:59 14:59 Intake Total 100 480 Balance 100 480 Intake: Oral 100 480 Other: # Voids 0 # Bowel Movements 0 Weight 65.317 kg 64.41 kg Results - Lab Results Most recent lab results Calcium 9.3 mg/dL (8.4-10.2) 04/05/18 16:20 Phosphorus 5.5 mg/dL (2.5-4.5) H 04/05/18 16:20 Magnesium 1.9 mg/dL (1.6-2.3) 04/05/18 16:20 04/05/18 16:20 04/05/18 16:20 Assessment and Plan Plan: Assessment: 1. End-stage renal disease maintained on hemodialysis on a Thursday schedule via right upper extremity AV fistula. 2. Mild hyperkalemia secondary to chronic kidney disease. 3. Suicidal ideation being followed by psychiatry. 4. Chronic kidney disease mineral bone disease. Phosphorus level 5.5 - on higher end of goal. 5. Hypertension with chronic kidney disease. Controlled. Plan: Hemodialysis today with goal 2 liters ultrafiltration. Add Renvela with meals. Resume home antihypertensives. Potential transfer to [facility] psychiatry unit. Thank you for the consultation. I will continue to follow the patient with you during his hospital stay.
[2018-04-06] MEDS: SEVELAMER 800 MG TAB PO SCH (17:15)
--- NOTE | 2018-04-06 21:52 | HP ---
HISTORY AND PHYSICAL SUBJECTIVE: This is a 67-year-old black male who came in with psychiatric symptoms, homicidal, suicidal, abdominal pains. He heard voices and songs. States he was suicidal. He has got a sitter in his room. Apparently Psych saw him, said he was not homicidal, wants suicidal ideations treated at the [facility]. The patient states he is homeless, he just wants to go to a longterm where he can have some treatment for the rest of his life. He gets dialysis even though he has been homeless. He has been going to dialysis half the times at least. He environment at home. Drinks 2-3 times a week. He has a history of polysubstance abuse apparently. Psychiatry wants him to go to Geriatric Psych, but patient wants to go to a longterm in this area. HOME MEDICATIONS: [place] 5/325 every 6 hours p.r.n. at home. ALLERGIES: ASPIRIN. REVIEW OF SYSTEMS: Fourteen-point review of systems negative except for mentioned in HPI. PAST MEDICAL HISTORY: His father was an alcoholic, at the age of 44. Mother, 90 years old, healthy. Brothers diabetes mellitus. Current everyday smoker. Cocaine, heroin, marijuana. PHYSICAL EXAMINATION: Temperature 98, pulse 80s to 90s, respiratory 16-20, blood pressures 170s to 190s over 87 to 115. Oxygen 97% to 99%. CARDIOVASCULAR: S1, S2. Tachycardic. LUNGS: Clear to auscultation. GI: Soft. HEMATOLOGY: Negative Homans. PSYCH: Fair mood and affect. NEUROLOGIC: Alert and oriented x3. Hemoglobin 11.4, white count 4.1, BUN 28, creatinine 8.12. ASSESSMENT: 1. Chronic renal failure, poorly controlled. 2. Hypertension. 3. Suicidal ideation. 4. Depression. 5. Psychosis. Get Psychiatry to see the patient and try to stabilize him prior to going to a longterm. The patient does not really want to go to [facility]. He wants treatment up here. Control hypertension with clonidine. Give dialysis per dialysis team, renal physician. MMARACELI / MARYCRUZ: [id number] /
[2018-04-07] MEDS: HYDROcodone/APAP 5-325MG 1 EACH TAB PO PRN ×4 (03:16→21:37)
[2018-04-07] MEDS: cloNIDine HCL 0.1 MG TAB PO SCH ×2 (07:05→21:37)
[2018-04-07] MEDS: SEVELAMER 800 MG TAB PO SCH ×3 (07:05→18:23)
--- NOTE | 2018-04-07 09:42 | P.PN ---
Subjective Patient is seen in follow-up for end-stage renal disease. He is maintained on hemodialysis on a Thursday schedule. Patient continues to have suicidal thoughts. He states he is hearing voices. He tolerated hemodialysis well yesterday. He's being followed by psychiatry. Vital signs are stable. General: The patient appeared well nourished and normally developed. HEENT: Head exam is unremarkable. Neck is without jugular venous distension. LUNGS: Lungs are clear to auscultation and percussion. Breath sounds decreased. HEART: Rate and Rhythm are regular. First and second heart sounds normal. No murmurs, rubs or gallops. ABDOMEN: Abdominal exam reveals normal bowel sounds. Non-tender and non- distended. No evidence of peritonitis. EXTREMITITES: No clubbing, cyanosis, or edema. Objective - Vital Signs Vital signs: Vital Signs Temp 98.9 F 04/07/18 05:45 Pulse 75 04/07/18 05:45 Resp 20 04/07/18 05:45 BP 132/60 04/07/18 05:45 Pulse Ox 97 04/07/18 05:45 Intake & Output 04/06/18 04/07/18 04/07/18 18:59 06:59 18:59 Intake Total 480 700 480 Balance 480 700 480 Intake: Oral 480 700 480 Other: # Voids 1 0 - Labs CBC & Chem 7: 04/05/18 16:20 04/05/18 16:20 Labs: Abnormal Lab Results - Last 24 Hours (Table) 04/05/18 Range/Units 16:20 Phosphorus 5.5 H (2.5-4.5) mg/dL Assessment and Plan Plan: Assessment: 1. End-stage renal disease maintained on hemodialysis on a Thursday schedule via right upper extremity AV fistula. 2. Mild hyperkalemia secondary to chronic kidney disease. 3. Suicidal ideation being followed by psychiatry. 4. Chronic kidney disease mineral bone disease. Phosphorus level 5.5 - on higher end of goal. 5. Hypertension with chronic kidney disease. Controlled. Plan: Hemodialysis tomorrow with goal 2 liters ultrafiltration. Maintain Renvela with meals.
[2018-04-07 09:52] LABS: Basophils % (A) 1 %; Eosinophils # (A) 0.1 k/uL (0-0.7); Eosinophils % (A) 4 %; HCT 32.8 % (39.0-53.0); HGB 10.6 gm/dL (13.0-17.5); Lymphocytes # (A) 0.9 k/uL (1.0-4.8); Lymphocytes % (A) 23 %; MCH 33.8 pg (25.0-35.0); MCHC 32.5 g/dL (31.0-37.0); Macrocytosis Moderate; Mean Platelet Volume 7.9; Monocytes # (A) 0.3 k/uL (0-1.0); Monocytes % (A) 7 %; Neutrophils # (A) 2.3 k/uL (1.3-7.7); Neutrophils % (A) 62 %; Platelet Count 204 k/uL (150-450); RBC 3.15 m/uL (4.30-5.90); RDW 14.7 % (11.5-15.5); WBC 3.6 k/uL (3.8-10.6)
[2018-04-07 10:50] LABS: Albumin 3.1 g/dL (3.5-5.0); Calcium 8.5 mg/dL (8.4-10.2); Potassium 4.4 mmol/L (3.5-5.1); Total Bilirubin 0.6 mg/dL (0.2-1.3); Total Protein 6.4 g/dL (6.3-8.2)
--- NOTE | 2018-04-07 15:23 | DS ---
DISCHARGE SUMMARY DISCHARGE MEDICATIONS: None. CONDITION: Stable. PROGNOSIS: Guarded. Ambulate as tolerated. DISCHARGE DIAGNOSES: 1. Depression, suicidal ideations, psychosis. 2. Poorly-controlled hypertension. DISCHARGE MEDICATIONS WILL BE: 1. Clonidine 0.1 mg p.o. t.i.d. for hypertension. 2. For chronic pain he takes [place] 5/325 every 4-6 hours p.r.n. DIET: Regular. Ambulate as tolerated. He gets dialysis 3 times a week. Psychiatry saw him in the hospital here, recommended inpatient psych treatment at the [facility] as he has severe depression, homicidal and suicidal ideations on admission and just suicidal ideations on discharge. He apparently is homeless. He goes to dialysis most of the time, 3 times a week, but is homeless, he is depressed. He has a history of polysubstance abuse with multiple substances including cocaine. He received dialysis here in the hospital. He was sent over to the [facility] for inpatient psychiatry treatment. DELGADO / MARYCRUZ: [id number] /
[2018-04-08] MEDS: HYDROcodone/APAP 5-325MG 1 EACH TAB PO PRN ×4 (03:55→22:08)
[2018-04-08] MEDS: SODIUM CHLORIDE 0.65% NASAL SPRAY 44 ML BTL NASAL PRN ×4 (03:55→22:07)
[2018-04-08] MEDS: cloNIDine HCL 0.1 MG TAB PO SCH ×3 (07:42→22:08)
[2018-04-08] MEDS: SEVELAMER 800 MG TAB PO SCH ×3 (07:42→15:30)
--- NOTE | 2018-04-08 09:42 | P.PN ---
Subjective Patient is seen in follow-up for end-stage renal disease. He is maintained on hemodialysis on a Thursday schedule. Patient continues to have suicidal thoughts. He states he is still hearing voices. He's being followed by psychiatry. Vital signs are stable. General: The patient appeared well nourished and normally developed. HEENT: Head exam is unremarkable. Neck is without jugular venous distension. LUNGS: Lungs are clear to auscultation and percussion. Breath sounds decreased. HEART: Rate and Rhythm are regular. First and second heart sounds normal. No murmurs, rubs or gallops. ABDOMEN: Abdominal exam reveals normal bowel sounds. Non-tender and non- distended. No evidence of peritonitis. EXTREMITITES: No clubbing, cyanosis, or edema. Objective - Vital Signs Vital signs: Vital Signs Temp 98.3 F 04/08/18 05:43 Pulse 69 04/08/18 05:43 Resp 20 04/08/18 05:43 BP 171/81 04/08/18 05:43 Pulse Ox 97 04/08/18 05:43 Intake & Output 04/07/18 04/08/18 04/08/18 18:59 06:59 18:59 Intake Total 480 100 Balance 480 100 Intake: Oral 480 100 Other: # Voids 0 0 - Labs CBC & Chem 7: 04/07/18 09:06 04/07/18 09:06 Labs: Abnormal Lab Results - Last 24 Hours (Table) 04/07/18 04/07/18 Range/Units 09:06 09:06 WBC 3.6 L (3.8-10.6) k/uL RBC 3.15 L (4.30-5.90) m/uL Hgb 10.6 L (13.0-17.5) gm/dL Hct 32.8 L (39.0-53.0) % MCV 104.0 H (80.0-100.0) fL Lymphocytes # 0.9 L (1.0-4.8) k/uL BUN 29 H (9-20) mg/dL Creatinine 5.83 H (0.66-1.25) mg/dL Glucose 143 H (74-99) mg/dL Alkaline Phosphatase 329 H (38-126) U/L Albumin 3.1 L (3.5-5.0) g/dL Assessment and Plan Plan: Assessment: 1. End-stage renal disease maintained on hemodialysis on a Thursday schedule via right upper extremity AV fistula. 2. Mild hyperkalemia secondary to chronic kidney disease. Improved postdialysis. 3. Suicidal ideation being followed by psychiatry. 4. Chronic kidney disease mineral bone disease. Phosphorus level 5.5 - on higher end of goal. 5. Hypertension with chronic kidney disease. Expect improvement postdialysis. Plan: Hemodialysis today with goal 2 liters ultrafiltration. Maintain Renvela with meals. Increase clonidine to 0.1 mg three times daily.
[2018-04-08 10:57] LABS: Basophils % (A) 1 %; Eosinophils # (A) 0.1 k/uL (0-0.7); Eosinophils % (A) 2 %; HCT 31.2 % (39.0-53.0); HGB 10.2 gm/dL (13.0-17.5); Lymphocytes # (A) 0.7 k/uL (1.0-4.8); Lymphocytes % (A) 16 %; MCH 33.7 pg (25.0-35.0); MCHC 32.6 g/dL (31.0-37.0); MCV 103.6 fL (80.0-100.0); Macrocytosis Slight; Mean Platelet Volume 7.8; Monocytes # (A) 0.3 k/uL (0-1.0); Monocytes % (A) 8 %; Neutrophils # (A) 3.1 k/uL (1.3-7.7); Neutrophils % (A) 71 %; Platelet Count 198 k/uL (150-450); RBC 3.01 m/uL (4.30-5.90); RDW 14.5 % (11.5-15.5); WBC 4.4 k/uL (3.8-10.6)
[2018-04-08 11:05] LABS: Albumin 2.7 g/dL (3.5-5.0); Calcium 8.4 mg/dL (8.4-10.2); Potassium 3.7 mmol/L (3.5-5.1); Total Bilirubin 0.4 mg/dL (0.2-1.3); Total Protein 5.6 g/dL (6.3-8.2)
--- NOTE | 2018-04-08 12:10 | CDI ---
Last Revision, May 2017 Documentation Clarification Form Date: 04/08/2018 11:48:36 AM From: Lisa Dillon RN, CCDS Admit Date: 04/06/2018 8:49:00 PM Patient Name: Edgar Guillen Visit Number: [id number] Discharge Date: ATTENTION: The Clinical Documentation Specialists (CDI) and [facility] Coding Staff appreciate your assistance in clarifying documentation. Please respond to the clarification below the line at the bottom and electronically sign. The CDI & [facility] Coding staff will review the response and follow-up if needed. Please note: Queries are made part of the Legal Health Record. If you have any questions, please contact the author of this message via ITS. Justin Johnson MD Poorly-controlled hypertension is documented in your discharge summary on Patient history/risk factors: End Stage renal disease on HD, Hypertension, Bipolar, Depression, current everyday smoker, Clinical Indicators: Present with homicidal/suicidal ideations. hearing voices. Vital signs on admission BP 183/87, 196/111, 173/103 Lab findings: WBC 4.1, BUN 28, CR 8.12, K+ Treatment: Catapres PO BID (Increased to TID) Monitor Vital signs In your professional opinion, can you please clarify if the poorly-controlled hypertension? Hypertension Urgency Other, please specify Unable to determine Please continue to document in your progress notes and discharge summary in order to capture severity of illness and risk of mortality. Include clinical findings that support your diagnosis. MTDD
--- NOTE | 2018-04-08 12:54 | PN ---
PROGRESS NOTE SUBJECTIVE: A 67-year-old male who is here another day, waiting for Geriatric Psychiatry at the [facility] to get dialysis every other day. His pain is controlled. His blood pressure is controlled. blood pressure and for renal disease and [place] for his lower back pain. Continues to be stable. Answers questions appropriately. CARDIOVASCULAR: S1, S2. LUNGS: Clear. was placed. Please wait further transfer to the [facility] today. MMODL / IJN: [id number] /
[2018-04-09] MEDS: HYDROcodone/APAP 5-325MG 1 EACH TAB PO PRN ×2 (04:23→10:40)
[2018-04-09] MEDS: cloNIDine HCL 0.1 MG TAB PO SCH ×4 (06:46→21:04)
[2018-04-09] MEDS: SEVELAMER 800 MG TAB PO SCH ×3 (09:11→17:16)
[2018-04-09] MEDS: SODIUM CHLORIDE 0.65% NASAL SPRAY 44 ML BTL NASAL PRN ×3 (10:37→21:04)
--- NOTE | 2018-04-09 11:09 | CDI ---
Last Revision, May 2017 Documentation Clarification Form Date: 04/08/2018 11:48:00 AM From: Lisa Dillon RN, CCDS Admit Date: 04/06/2018 8:49:00 PM Patient Name: Edgar Guillen Visit Number: [id number] Discharge Date: ATTENTION: The Clinical Documentation Specialists (CDI) and [facility] Coding Staff appreciate your assistance in clarifying documentation. Please respond to the clarification below the line at the bottom and electronically sign. The CDI & [facility] Coding staff will review the response and follow-up if needed. Please note: Queries are made part of the Legal Health Record. If you have any questions, please contact the author of this message via ITS. Justin Denise MD Poorly-controlled hypertension/hypertension acceleration is documented in the Emergency Departmant clinical impression and in your discharge summary on Patient history/risk factors: End Stage renal disease on HD, Hypertension, Bipolar, Depression, current everyday smoker, Clinical Indicators: Present with homicidal/suicidal ideations, hearing voices. Patients blood pressure was elevated. He was treated with multiple doses of catapres po Vital signs on admission BP 183/87, 196/111, 173/103 Lab findings: WBC 4.1, BUN 28, CR 8.12, K+ Treatment: Catapres PO BID (Increased to TID) Monitor Vital signs In your professional opinion, can you please clarify if the poorly-controlled hypertension? Hypertension Urgency Other, please specify Unable to determine Please continue to document in your progress notes and discharge summary in order to capture severity of illness and risk of mortality. Include clinical findings that support your diagnosis. MTDD
--- NOTE | 2018-04-09 13:20 | P.PN ---
Subjective Patient is seen in follow-up for end-stage renal disease. He is maintained on hemodialysis on a Thursday schedule. Patient continues to have suicidal thoughts. He states he is still hearing voices. He's being followed by psychiatry. Blood pressures on the higher side. Vital signs are stable. General: The patient appeared well nourished and normally developed. HEENT: Head exam is unremarkable. Neck is without jugular venous distension. LUNGS: Lungs are clear to auscultation and percussion. Breath sounds decreased. HEART: Rate and Rhythm are regular. First and second heart sounds normal. No murmurs, rubs or gallops. ABDOMEN: Abdominal exam reveals normal bowel sounds. Non-tender and non- distended. No evidence of peritonitis. EXTREMITITES: No clubbing, cyanosis, or edema. Objective - Vital Signs Vital signs: Vital Signs Temp 98.1 F 04/09/18 06:36 Pulse 68 04/09/18 06:36 Resp 16 04/09/18 06:36 BP 200/93 04/09/18 06:36 Pulse Ox 96 04/09/18 06:36 Intake & Output 04/08/18 04/09/18 04/09/18 18:59 06:59 18:59 Other: Voiding Method Toilet Toilet # Voids 1 1 - Labs CBC & Chem 7: 04/08/18 10:45 04/08/18 10:45 Assessment and Plan Plan: Assessment: 1. End-stage renal disease maintained on hemodialysis on a Thursday schedule via right upper extremity AV fistula. 2. Mild hyperkalemia secondary to chronic kidney disease. Improved postdialysis. 3. Suicidal ideation being followed by psychiatry. 4. Chronic kidney disease mineral bone disease. Phosphorus level 5.5 - on higher end of goal. 5. Hypertension with chronic kidney disease. Blood pressures on the higher side. Plan: Hemodialysis tomorrow with goal 2 liters ultrafiltration. Maintain Renvela with meals. Clonidine further increased today. I will add hydralazine 10 mg IV every 4 hours as needed for systolic blood pressure over 160.
[2018-04-09] MEDS: HYDROcodone/APAP 10-325MG 1 EACH TAB PO PRN ×2 (16:08→23:11)
[2018-04-09] MEDS: hydrALAZINE HCL 20 MG/ML 1 ML VIAL IVP PRN (17:20)
[2018-04-10] MEDS: hydrALAZINE HCL 20 MG/ML 1 ML VIAL IVP PRN ×2 (00:07→09:18)
[2018-04-10] MEDS: SODIUM CHLORIDE 0.65% NASAL SPRAY 44 ML BTL NASAL PRN ×3 (04:25→18:52)
[2018-04-10] MEDS: HYDROcodone/APAP 10-325MG 1 EACH TAB PO PRN ×3 (05:42→18:52)
[2018-04-10] MEDS: SEVELAMER 800 MG TAB PO SCH ×3 (09:11→18:03)
[2018-04-10] MEDS: cloNIDine HCL 0.1 MG TAB PO SCH ×3 (09:11→21:02)
[2018-04-10] MEDS: diphenhydrAMINE 50 MG/ML 1 ML VIAL IVP PRN (09:35)
--- NOTE | 2018-04-10 10:07 | P.PN ---
Subjective Patient is seen in follow-up for end-stage renal disease. He is maintained on hemodialysis on a Thursday schedule. Patient continues to have suicidal thoughts. He states he is still hearing voices but improved from yesterday. He's being followed by psychiatry. Vital signs are stable. General: The patient appeared well nourished and normally developed. HEENT: Head exam is unremarkable. Neck is without jugular venous distension. LUNGS: Lungs are clear to auscultation and percussion. Breath sounds decreased. HEART: Rate and Rhythm are regular. First and second heart sounds normal. No murmurs, rubs or gallops. ABDOMEN: Abdominal exam reveals normal bowel sounds. Non-tender and non- distended. No evidence of peritonitis. EXTREMITITES: No clubbing, cyanosis, or edema. Objective - Vital Signs Vital signs: Vital Signs Temp 97.9 F 04/10/18 06:50 Pulse 74 04/10/18 06:50 Resp 16 04/10/18 06:50 BP 172/85 04/10/18 06:50 Pulse Ox 95 04/10/18 06:50 Intake & Output 04/09/18 04/10/18 04/10/18 18:59 06:59 18:59 Intake Total 0 700 Balance 0 700 Intake: Oral 700 Tube Feeding 0 Other: Voiding Method Toilet # Voids 0 - Labs CBC & Chem 7: 04/08/18 10:45 04/08/18 10:45 Assessment and Plan Plan: Assessment: 1. End-stage renal disease maintained on hemodialysis on a Thursday schedule via right upper extremity AV fistula. 2. Mild hyperkalemia secondary to chronic kidney disease. Improved postdialysis. 3. Suicidal ideation being followed by psychiatry. 4. Chronic kidney disease mineral bone disease. Phosphorus level 5.5 - on higher end of goal. 5. Hypertension with chronic kidney disease. Blood pressures on the higher side Plan: Currently seen while undergoing hemodialysis. Maintain Renvela with meals. Maintain current antihypertensives. Add amlodipine.
--- NOTE | 2018-04-10 10:07 | P.PN ---
Subjective Progress Note Date: 04/10/18 Principal diagnosis: Chronic renal failure on hemodialysis, schizophrenia, hypertension hypertensive cardiovascular disease with uncontrolled hypertension, chronic shortness of breath, COPD, 04/10/2018, patient seen eval reexamined during the rounds clinically patient is not much different from baseline however does complain of nasal stuffiness and congestion and secondary shortness of breath related to that patient does have nasal spray ordered he wants to use more than, it appears that patient will benefit from bronchodilators will order, his blood pressure is relatively better under control now Objective - Vital Signs Vital signs: Vital Signs Temp 97.9 F 04/10/18 06:50 Pulse 74 04/10/18 06:50 Resp 16 04/10/18 06:50 BP 172/85 04/10/18 06:50 Pulse Ox 95 04/10/18 06:50 Intake & Output 04/09/18 04/10/18 04/10/18 18:59 06:59 18:59 Intake Total 0 700 Balance 0 700 Intake: Oral 700 Tube Feeding 0 Other: Voiding Method Toilet # Voids 0 - Exam General: The patient appeared well nourished and normally developed. HEENT: Head exam is unremarkable. Neck is without jugular venous distension. Neck: Supple, neck veins are prominent, no masses seen eval lymphadenopathy is present LUNGS: Lungs fine inspiratory expiratory wheezing with few basal crackles overall Breath sounds decreased. HEART: Rate and Rhythm are regular. First and second heart sounds normal. No murmurs, rubs or gallops. ABDOMEN: Abdominal exam reveals normal bowel sounds. Non-tender and non- distended. No evidence of peritonitis. EXTREMITITES: No clubbing, cyanosis, or edema. 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
[2018-04-10] MEDS: IPRATROPIUM-ALBUTEROL 3 ML NEB INHALATION SCH ×3 (11:15→19:11)
[2018-04-10] MEDS: amLODIPine 5 MG TAB PO SCH (11:55)
[2018-04-11] MEDS: HYDROcodone/APAP 10-325MG 1 EACH TAB PO PRN ×4 (01:24→18:17)
[2018-04-11] MEDS: hydrALAZINE HCL 20 MG/ML 1 ML VIAL IVP PRN (02:33)
[2018-04-11] MEDS: IPRATROPIUM-ALBUTEROL 3 ML NEB INHALATION SCH ×4 (07:29→19:04)
[2018-04-11] MEDS: amLODIPine 5 MG TAB PO SCH (08:27)
[2018-04-11] MEDS: cloNIDine HCL 0.1 MG TAB PO SCH ×3 (08:27→21:11)
[2018-04-11] MEDS: SEVELAMER 800 MG TAB PO SCH ×3 (08:27→18:13)
--- NOTE | 2018-04-11 09:42 | P.PN ---
Subjective Patient is seen in follow-up for end-stage renal disease. He is maintained on hemodialysis on a Thursday schedule. Patient continues to have suicidal thoughts. He states he is still hearing voices but better since admission. He's being followed by psychiatry. Vital signs are stable. General: The patient appeared well nourished and normally developed. HEENT: Head exam is unremarkable. Neck is without jugular venous distension. LUNGS: Lungs are clear to auscultation and percussion. Breath sounds decreased. HEART: Rate and Rhythm are regular. First and second heart sounds normal. No murmurs, rubs or gallops. ABDOMEN: Abdominal exam reveals normal bowel sounds. Non-tender and non- distended. No evidence of peritonitis. EXTREMITITES: No clubbing, cyanosis, or edema. Objective - Vital Signs Vital signs: Vital Signs Temp 96.7 F L 04/11/18 06:00 Pulse 64 04/11/18 06:00 Resp 20 04/11/18 06:00 BP 138/67 04/11/18 06:00 Pulse Ox 95 04/11/18 06:00 Intake & Output 04/10/18 04/11/18 04/11/18 18:59 06:59 18:59 Intake Total 800 Output Total 0 Balance 0 800 Intake: Oral 800 Output: Urine 0 Other: Voiding Method Toilet # Voids 0 - Labs CBC & Chem 7: 04/08/18 10:45 04/08/18 10:45 Assessment and Plan Plan: Assessment: 1. End-stage renal disease maintained on hemodialysis on a Thursday schedule via right upper extremity AV fistula. 2. Mild hyperkalemia secondary to chronic kidney disease. Improved postdialysis. 3. Suicidal ideation being followed by psychiatry. 4. Chronic kidney disease mineral bone disease. Phosphorus level 5.5 - on higher end of goal. 5. Hypertension with chronic kidney disease. Better. Plan: Next HD on Thursday. Maintain Renvela with meals. Maintain current antihypertensives.
--- NOTE | 2018-04-11 14:03 | PN ---
PROGRESS NOTE SUBJECTIVE: 67-year-old male states he is still suicidal at this time, not homicidal. His blood pressure acceleration is improving, increased Catapres 2 days ago to 0.3 mg t.i.d. He has also been added on Norvasc 5 mg daily for hypertension. He is on DuoNeb for updrafts. Cardiovascular S1, S2. Lungs clear. GI soft. Hemoglobin is good at 10.2. No recent labs today. Will order some for tomorrow. ASSESSMENT AND PLAN: 1. Protein calorie malnutrition. 2. End-stage renal disease. 3. Suicidal ideations. 4. Awaiting rehab placement. 5. Generalized debility. 6. Hypertension acceleration, continue current treatment. 7. End-stage renal disease, dialysis. 8. Await for psych referral for rehab. He is still suicidal at this time. He denies homicidal but suicidal he has a someone in the room with him 24 hour sitter at this time. MMODL / IJN: [id number] /
[2018-04-11] MEDS ORDERED: DOCUSATE 100 MG CAP PO STA (15:04)
[2018-04-12] MEDS: HYDROcodone/APAP 10-325MG 1 EACH TAB PO PRN ×4 (00:23→19:03)
[2018-04-12] MEDS: IPRATROPIUM-ALBUTEROL 3 ML NEB INHALATION SCH ×4 (07:02→19:08)
[2018-04-12] MEDS: SEVELAMER 800 MG TAB PO SCH ×3 (08:32→17:00)
--- NOTE | 2018-04-12 09:08 | P.PN ---
Subjective Patient is seen in follow-up for end-stage renal disease. He is maintained on hemodialysis on a Thursday schedule. Patient continues to have suicidal thoughts. He states he is still hearing voices but better since admission. He's being followed by psychiatry. Awaits placement to psychiatry unit. Vital signs are stable. General: The patient appeared well nourished and normally developed. HEENT: Head exam is unremarkable. Neck is without jugular venous distension. LUNGS: Lungs are clear to auscultation and percussion. Breath sounds decreased. HEART: Rate and Rhythm are regular. First and second heart sounds normal. No murmurs, rubs or gallops. ABDOMEN: Abdominal exam reveals normal bowel sounds. Non-tender and non- distended. No evidence of peritonitis. EXTREMITITES: No clubbing, cyanosis, or edema. Objective - Vital Signs Vital signs: Vital Signs Temp 97.0 F L 04/12/18 05:47 Pulse 72 04/12/18 07:12 Resp 18 04/12/18 05:47 BP 162/89 04/12/18 05:47 Pulse Ox 95 04/12/18 05:47 Intake & Output 04/11/18 04/12/18 04/12/18 18:59 06:59 18:59 Other: Voiding Method Toilet # Voids 0 1 - Labs CBC & Chem 7: 04/08/18 10:45 04/08/18 10:45 Assessment and Plan Plan: Assessment: 1. End-stage renal disease maintained on hemodialysis on a Thursday schedule via right upper extremity AV fistula. 2. Mild hyperkalemia secondary to chronic kidney disease. Improved postdialysis. 3. Suicidal ideation being followed by psychiatry. 4. Chronic kidney disease mineral bone disease. Phosphorus level 5.5 - on higher end of goal. 5. Hypertension with chronic kidney disease. Better. Plan: Next HD on Thursday. Maintain Renvela with meals. Maintain current antihypertensives.
[2018-04-12] MEDS: amLODIPine 5 MG TAB PO SCH (09:25)
[2018-04-12] MEDS: cloNIDine HCL 0.1 MG TAB PO SCH ×3 (09:25→21:04)
[2018-04-12 10:25] LABS: Calcium 9.1 mg/dL (8.4-10.2); Phosphorus 4.7 mg/dL (2.5-4.5); Potassium 5.6 mmol/L (3.5-5.1); Total Bilirubin 0.6 mg/dL (0.2-1.3); Total Protein 6.3 g/dL (6.3-8.2)
[2018-04-12 10:45] LABS: HCT 33.9 % (39.0-53.0); HGB 11.2 gm/dL (13.0-17.5); MCH 33.9 pg (25.0-35.0); MCV 102.7 fL (80.0-100.0); Macrocytosis Slight; Platelet Count 242 k/uL (150-450); RDW 14.6 % (11.5-15.5); WBC 4.5 k/uL (3.8-10.6)
[2018-04-12 11:23] LABS: Eosinophils # (M) 0.23 k/uL (0-0.7); Lymphocytes # (M) 2.07 k/uL (1.0-4.8); Monocytes # (M) 0.32 k/uL (0-1.0); Neutrophils # (M) 1.89 k/uL (1.3-7.7); Neutrophils % (M) 42 %; Nucleated Red Blood Cells 0 /100 WBC (0-0); Poikilocytosis (M) Present; Total Cells Counted 100
--- NOTE | 2018-04-12 13:50 | P.PN ---
Subjective Progress Note Date: 04/12/18 Principal diagnosis: suicidal re-evaluation of client Objective - Vital Signs Vital signs: Vital Signs Temp 97.0 F L 04/12/18 05:47 Pulse 72 04/12/18 11:06 Resp 18 04/12/18 05:47 BP 162/89 04/12/18 05:47 Pulse Ox 95 04/12/18 05:47 Intake & Output 04/11/18 04/12/18 04/12/18 18:59 06:59 18:59 Other: Voiding Method Toilet # Voids 0 1 - Labs CBC & Chem 7: 04/12/18 08:15 04/12/18 08:15 Labs: Abnormal Lab Results - Last 24 Hours (Table) 04/12/18 04/12/18 Range/Units 08:15 08:15 RBC 3.30 L (4.30-5.90) m/uL Hgb 11.2 L (13.0-17.5) gm/dL Hct 33.9 L (39.0-53.0) % MCV 102.7 H (80.0-100.0) fL Potassium 5.6 H (3.5-5.1) mmol/L Chloride 110 H (98-107) mmol/L Carbon Dioxide 20 L (22-30) mmol/L BUN 57 H (9-20) mg/dL Creatinine 8.10 H* (0.66-1.25) mg/dL Glucose 121 H (74-99) mg/dL Phosphorus 4.7 H (2.5-4.5) mg/dL Alkaline Phosphatase 401 H (38-126) U/L Albumin 3.0 L (3.5-5.0) g/dL Assessment and Plan Assessment: General Chief complaint: Psychiatric Symptoms Stated complaint: homicidal/suicidal, ab pain, sob,voices/songs 04/12/2018 - History of Present Illness Initial comments: Chief Complaint: 67-year-old -Welsh male with multiple comorbidities including end-stage renal disease. He gets dialysis Thursday, and Thursday presents with, cramping and suicidal ideation. History of Present Illness: This 67-year-old male with multiple comorbidities. He has past medical history of end-stage renal disease. He is on dialysis Thursday, and Thursday. His siebel crm developer is Dr. Mccurdy. Patient is drinking alcohol today. He states he drinks EtOH 2-3 times a week. Patient's last dialysis was Thursday. Today presents with abdominal cramping to the epigastric region. Denies any nausea or vomiting. Patient states he's feeling suicidal. Patient wants to jump off the bridge. Patient states he's been suicidal in the past. Patient gets dialysis through a right upper extremity dialysis access. Past Medical History Past Medical History: Dialysis, Hyperlipidemia, Hypertension, Renal Disease Additional Past Medical History / Comment(s): "spot on liver", back pain, decreased appetite w/ weight loss. History of Any Multi-Drug Resistant Organisms: None Reported Past Surgical History: Orthopedic Surgery Additional Past Surgical History / Comment(s): 07/01/16 NICO. dialysis graft to right upper arm, jaw surgery (titanium screws) Past Anesthesia/Blood Transfusion Reactions: No Reported Reaction Past Psychological History: Bipolar, Depression Smoking Status: Current every day smoker Past Alcohol Use History: Occasional Past Drug Use History: Cocaine, Heroin, Marijuana - Past Family History Father Additional Family Medical History / Comment(s): Father was an alcoholic and of this at the age of 44yrs. Mother Family Medical History: No Reported History Additional Family Medical History / Comment(s): Mother is 90yrs old and healthy. Brother(s) Family Medical History: Diabetes Mellitus Musculoskeletal Examination - Abnormal/Involuntary Movements: [ tremors] Strength: [greater than antigravity (weakness:] Muscle Tone: [flaccid] Gait: [limping, in wheelchair] Station: [ unsteady Mental Status Examination - General Appearance: [appears older than stated age] Speech/Language: [ slow, soft] Attitude/Behavior: [cooperative, guarded, withdrawn, indifferent] Mood: [ depressed, anxious, fearful, hopelessness] Affect: [ flat, incongruent, labile, blunted constricted] Orientation: [ time/date time, person, place situation] Thought Content: [wnl Risk Factors: [continues to be suicidal (ideation with plan) Perception: [wnl Thought Processes: [concrete, circumstantial, tangential Concentration/Attention Span: [ impaired] [Per observation and interview with the patient] Recent Memory: [ impaired] [0 out of 3 in 3 minutes] Remote Memory: [ impaired] [past events, as related history] Intelligence: [below average ] [based on history, based on vocabulary, syntax, grammar, and content] Judgement: [ fair] [per patient's behavior/history of present illness] Insight: [ fair] [understanding severity of illness/history of present illness] Clinical impression: This is a 67-year-old -Welsh male with end-stage renal disease who is now claiming to have suicidal ideation. He has not been hospitalized in our facility before but has been at the [facility] [place] and or [facility] Recommendations: Due to his end-stage renal disease and his suicidal ideation and depression with anxiety would be best that he transferred to [facility] facility or [facility] that can handle medical issues such as end-stage renal disease to treat his depression.After all, he is a . Buck Fernandez D.O. PhD attending psychiatrist Caitlin Hernandez (1) Depression Current Visit: Yes Status: Acute Priority: Medium Code(s): F32.9 - MAJOR DEPRESSIVE DISORDER, SINGLE EPISODE, UNSPECIFIED SNOMED Code(s): 23823914 (2) Suicidal ideation Current Visit: Yes Status: Acute Priority: High Code(s): R45.851 - SUICIDAL IDEATIONS SNOMED Code(s): 2240242 Plan: Consider transfer to [facility] facility for treatment of depression and or [facility] Time with Patient: Less than 30
[2018-04-13] MEDS: HYDROcodone/APAP 10-325MG 1 EACH TAB PO PRN ×3 (01:25→17:23)
[2018-04-13] MEDS: IPRATROPIUM-ALBUTEROL 3 ML NEB INHALATION SCH ×4 (07:01→19:14)
--- NOTE | 2018-04-13 07:37 | PN ---
PROGRESS NOTE SUBJECTIVE: An male, 67 years old, hypertension acceleration, auditory hallucinations. Remains on Renvela, Catapres, Norvasc, DuoNeb, Apresoline. Has dialysis every 2 to 3 days. Awaiting psychiatric consultation. Pulse is in the 70s CARDIOVASCULAR: S1, S2. LUNGS: Clear. GI: Soft. HEMATOLOGY: Negative Homans. Await for Psychiatry to give him medication. Continue with psych consultations. will be continued. Still suicidal at this time, not homicidal. PLAN: Continue with for hypertension, Norvasc. Await psychiatry and consultation from [place] facilities as patient is unable to get treatment here from psychiatrist. MMODL / IJN: [id number] /
[2018-04-13] MEDS: SEVELAMER 800 MG TAB PO SCH ×3 (08:41→16:44)
[2018-04-13] MEDS: diphenhydrAMINE 50 MG/ML 1 ML VIAL IVP PRN (08:42)
[2018-04-13] MEDS ORDERED: GELATIN SPONGE,ABSORB (LARGE) 1 EACH SPONGE ONE (09:00)
--- NOTE | 2018-04-13 09:55 | P.PN ---
Subjective Patient is seen in follow-up for end-stage renal disease. He is maintained on hemodialysis on a Thursday schedule. Patient continues to have suicidal thoughts. He states he is still hearing voices but better since admission. He's being followed by psychiatry. Awaits placement to psychiatry unit. Currently seen was undergoing hemodialysis. Vital signs are stable. General: The patient appeared well nourished and normally developed. HEENT: Head exam is unremarkable. Neck is without jugular venous distension. LUNGS: Lungs are clear to auscultation and percussion. Breath sounds decreased. HEART: Rate and Rhythm are regular. First and second heart sounds normal. No murmurs, rubs or gallops. ABDOMEN: Abdominal exam reveals normal bowel sounds. Non-tender and non- distended. No evidence of peritonitis. EXTREMITITES: No clubbing, cyanosis, or edema. Objective - Vital Signs Vital signs: Vital Signs Temp 97.0 F L 04/13/18 06:05 Pulse 76 04/13/18 06:05 Resp 18 04/13/18 06:05 BP 156/87 04/13/18 06:05 Pulse Ox 95 04/13/18 06:05 Intake & Output 04/12/18 04/13/18 04/13/18 18:59 06:59 18:59 Intake Total 600 200 Balance 600 200 Intake: Oral 600 200 Other: # Voids 1 1 - Labs CBC & Chem 7: 04/12/18 08:15 04/12/18 08:15 Labs: Abnormal Lab Results - Last 24 Hours (Table) 04/12/18 04/12/18 Range/Units 08:15 08:15 RBC 3.30 L (4.30-5.90) m/uL Hgb 11.2 L (13.0-17.5) gm/dL Hct 33.9 L (39.0-53.0) % MCV 102.7 H (80.0-100.0) fL Potassium 5.6 H (3.5-5.1) mmol/L Chloride 110 H (98-107) mmol/L Carbon Dioxide 20 L (22-30) mmol/L BUN 57 H (9-20) mg/dL Creatinine 8.10 H* (0.66-1.25) mg/dL Glucose 121 H (74-99) mg/dL Phosphorus 4.7 H (2.5-4.5) mg/dL Alkaline Phosphatase 401 H (38-126) U/L Albumin 3.0 L (3.5-5.0) g/dL Assessment and Plan Plan: Assessment: 1. End-stage renal disease maintained on hemodialysis on a Thursday schedule via right upper extremity AV fistula. 2. Mild hyperkalemia secondary to chronic kidney disease. Improved postdialysis. 3. Suicidal ideation being followed by psychiatry. 4. Chronic kidney disease mineral bone disease. Phosphorus level 5.5 - on higher end of goal. 5. Hypertension with chronic kidney disease. Better. Plan: Currently seen while undergoing hemodialysis. Next treatment on . Maintain Renvela with meals. Maintain current antihypertensives.
[2018-04-13] MEDS: amLODIPine 5 MG TAB PO SCH (13:42)
[2018-04-13] MEDS: cloNIDine HCL 0.1 MG TAB PO SCH ×3 (13:42→21:17)
--- NOTE | 2018-04-13 14:40 | CDI ---
Last Revision, May 2017 Documentation Clarification Form Date: 04/13/2018 2:18:00 PM From: Lisa Dillon RN, CCDS Admit Date: 04/06/2018 8:49:00 PM Patient Name: Edgar Guillen Visit Number: [id number] Discharge Date: ATTENTION: The Clinical Documentation Specialists (CDI) and [facility] Coding Staff appreciate your assistance in clarifying documentation. Please respond to the clarification below the line at the bottom and electronically sign. The CDI & [facility] Coding staff will review the response and follow-up if needed. Please note: Queries are made part of the Legal Health Record. If you have any questions, please contact the author of this message via ITS. Justin Denise MD Protein Calorie Malnutrition has been documented in your progress note on . History/Risk Factors: ESRD on Hemodialysis, HTN, Depression, Alcohol Use Clinical Indicators: Present with abdominal cramping to the epigastric region. Denies any nausea or vomiting. Patient is drinking alcohol today. He has a past medical history of decreased appetite with weight loss. Amount not specified. Per nutrition assessment his appetite is good. He has difficulty chewing related to endentulous poor dentition. His physical appearance is well nourished. Labs: Albumin 4.0, 3.1, 27.7 3.0 Total Protein: 7.6, 6.4, 5.6, 6.3 Current BMI: 22.2 Treatment: Nephro with breakfast, Commercial beverage, diet modification: soft foods, chopped meets Dietary Consult: Yes Lab monitoring: In your professional opinion, can you please clarify if these findings signify one of the following conditions? Mild Protein-Calorie Malnutrition Moderate Protein-Calorie Malnutrition Severe Protein-Calorie Malnutrition Other condition, please specify Unable to determine Please continue to document in your progress notes and discharge summary in order to capture severity of illness and risk of mortality. Include clinical findings that support your diagnosis. MTDD
--- NOTE | 2018-04-13 19:49 | PN ---
PROGRESS NOTE SUBJECTIVE: This is a 67-year-old -Greek male with hypertension, COPD, end-stage renal disease, lumbar degenerative disc disease, awaiting psychiatric inpatient rehab. Blood pressure is 140s to 150s over 70s to 80s, oxygen 91% to 95% on room air, temperature 97, pulse in the 70s. CARDIOVASCULAR: S1, S2. LUNGS: Wheezes at the base. GI: Distended, obese. HEMATOLOGY: Negative Homans. ASSESSMENT: 1. End-stage renal disease. 2. Hypertension acceleration. 3. Hypertension. PLAN: Continue current treatment. Follow up in the next 24 to 48 hours for transfer to a rehab center for psychiatric inpatient he still has auditory hallucinations. MMODL / IJN: [id number] /
[2018-04-14] MEDS: HYDROcodone/APAP 10-325MG 1 EACH TAB PO PRN ×4 (00:09→17:37)
[2018-04-14] MEDS: IPRATROPIUM-ALBUTEROL 3 ML NEB INHALATION SCH ×4 (07:21→20:11)
[2018-04-14] MEDS: SEVELAMER 800 MG TAB PO SCH ×3 (07:45→17:19)
[2018-04-14] MEDS: amLODIPine 5 MG TAB PO SCH (07:45)
[2018-04-14] MEDS: cloNIDine HCL 0.1 MG TAB PO SCH ×3 (07:45→20:45)
--- NOTE | 2018-04-14 10:24 | P.PN ---
Subjective Patient is seen in follow-up for end-stage renal disease. He is maintained on hemodialysis on a Thursday schedule. Patient continues to have suicidal thoughts. He states he is still hearing voices but better since admission. He's being followed by psychiatry. Awaits placement to psychiatry unit. He tolerated hemodialysis well yesterday. Vital signs are stable. General: The patient appeared well nourished and normally developed. HEENT: Head exam is unremarkable. Neck is without jugular venous distension. LUNGS: Lungs are clear to auscultation and percussion. Breath sounds decreased. HEART: Rate and Rhythm are regular. First and second heart sounds normal. No murmurs, rubs or gallops. ABDOMEN: Abdominal exam reveals normal bowel sounds. Non-tender and non- distended. No evidence of peritonitis. EXTREMITITES: No clubbing, cyanosis, or edema. Objective - Vital Signs Vital signs: Vital Signs Temp 97.0 F L 04/14/18 06:49 Pulse 72 04/14/18 07:31 Resp 18 04/14/18 06:49 BP 157/90 04/14/18 06:49 Pulse Ox 92 L 04/14/18 06:49 Intake & Output 04/13/18 04/14/18 04/14/18 18:59 06:59 18:59 Intake Total 800 1250 360 Balance 800 1250 360 Weight 64.41 kg 64.41 kg Intake: Oral 800 1250 360 Other: Voiding Method Toilet # Voids 2 - Labs CBC & Chem 7: 04/12/18 08:15 04/12/18 08:15 Assessment and Plan Plan: Assessment: 1. End-stage renal disease maintained on hemodialysis on a Thursday schedule via right upper extremity AV fistula. 2. Mild hyperkalemia secondary to chronic kidney disease. Improved postdialysis. 3. Suicidal ideation being followed by psychiatry. 4. Chronic kidney disease mineral bone disease. Phosphorus level 5.5 - on higher end of goal. 5. Hypertension with chronic kidney disease. Better. Plan: Hemodialysis on . Maintain Renvela with meals. Maintain current antihypertensives.
[2018-04-14] MEDS ORDERED: LORazepam 2 MG/ML INJ IV PRN (20:25)
[2018-04-14] MEDS ORDERED: LORazepam 2 MG/ML INJ IM PRN (20:27)
[2018-04-14 21:16] LABS: Basophils # (A) 0.1 k/uL (0-0.2); Basophils % (A) 1 %; Eosinophils # (A) 0.2 k/uL (0-0.7); Eosinophils % (A) 3 %; HCT 32.3 % (39.0-53.0); HGB 10.1 gm/dL (13.0-17.5); Lymphocytes # (A) 1.6 k/uL (1.0-4.8); Lymphocytes % (A) 28 %; MCH 31.5 pg (25.0-35.0); MCHC 31.2 g/dL (31.0-37.0); Macrocytosis Slight; Mean Platelet Volume 7.6; Monocytes # (A) 0.5 k/uL (0-1.0); Monocytes % (A) 9 %; Neutrophils # (A) 3.1 k/uL (1.3-7.7); Neutrophils % (A) 54 %; Platelet Count 224 k/uL (150-450); RDW 14.3 % (11.5-15.5); WBC 5.6 k/uL (3.8-10.6)
[2018-04-14 21:24] LABS: Albumin 3.2 g/dL (3.5-5.0); Calcium 9.2 mg/dL (8.4-10.2); Potassium 5.9 mmol/L (3.5-5.1); Total Bilirubin 0.5 mg/dL (0.2-1.3); Total Protein 6.6 g/dL (6.3-8.2)
--- NOTE | 2018-04-14 23:26 | NM ---
EXAMINATION TYPE: NM pul vent and perfuse DATE OF EXAM: 04/14/2018 COMPARISON: NONE HISTORY: TECHNIQUE: Utilizing inhalation of 35.1 mCi Tc 99m DTPA aerosol and intravenous injection of 5.26 mC i of Tc 99m MAA, ventilation and perfusion images are acquired post injection in multiple projections . FINDINGS: There is some clumping of the tracer centrally on the ventilation images. There is no significant jose tilation defect. There is fairly normal perfusion of both lungs on the perfusion images. IMPRESSION: There is a very low probability of pulmonary embolism.
[2018-04-15] MEDS: LORazepam 2 MG/ML INJ IV PRN ×4 (00:53→22:09)
--- NOTE | 2018-04-15 06:03 | PN ---
PROGRESS NOTE SUBJECTIVE: A 67-year-old male with chronic renal failure, depression, developed significant shortness of breath tonight out of the blue, unable to catch his breath, sitting in bed. He ran to where the air condition was on and was breathing over there. Updraft did not help him. He refused to wear oxygen. gave a shot of Ativan for severe anxiety and orders were given. Pulmonology and Cardiology consult. Troponins, CT of the chest, labs, etc. PSYCH: He is anxious, running around the room, says he cannot breathe. He was not keeping his oxygen on. CARDIOVASCULAR: Tachycardia up to 130. LUNGS: Show scattered wheeze x4. ASSESSMENT: 1. Chronic renal failure, end-stage renal failure. 2. He has some auditory hallucinations. 3. Acute shortness of breath, unclear etiology. Please see further orders. Await Cardiology and Pulmonary consults. MMODL / IJN: [id number] /
[2018-04-15] MEDS: SEVELAMER 800 MG TAB PO SCH ×3 (06:56→16:51)
[2018-04-15] MEDS: HYDROcodone/APAP 10-325MG 1 EACH TAB PO PRN ×3 (07:09→22:08)
[2018-04-15] MEDS: IPRATROPIUM-ALBUTEROL 3 ML NEB INHALATION SCH ×4 (08:39→20:12)
[2018-04-15] MEDS: cloNIDine HCL 0.1 MG TAB PO SCH ×3 (10:59→22:05)
[2018-04-15] MEDS: amLODIPine 5 MG TAB PO SCH (10:59)
--- NOTE | 2018-04-15 12:46 | P.CRDCN ---
History of Present Illness Consult date: 04/15/18 Chief complaint: Shortness of breath History of present illness: This is a 67-year-old -[place] gentleman with a past medical history significant for end stage renal disease on hemodialysis, hypertension, dyslipidemia, chronic nicotine dependence, as well as history of alcohol and drug abuse, was admitted to the hospital with shortness of breath. The patient initially was admitted to the hospital with suicidal ideation and he was seen by a psychiatrist. He did not have any symptoms of chest pain or chest discomfort but the last night he was experiencing some shortness of breath. No dizziness or lightheadedness and no syncope. The patient is not aware of any prior history of coronary artery disease and never had any coronary revascularization. He was seen by our service last month and at that point an echocardiogram was done and revealed normal LV function with mild MR, mild TR, aortic sclerosis and mitral annular calcifications. The chest x-ray did not show any acute abnormalities. The EKG showed sinus rhythm. The BMP came in to be around 30,000. The patient is in process of having dialysis later on today. The hemoglobin is 10. The potassium was slightly elevated when he presented to the hospital. The patient also in process of being transferred to the [place] psychiatric unit. On physical examination, he does have diminished breathing sounds bilaterally and he does have crackles bilaterally. I'm not sure if the patient can benefit from any diuretics and I will check with the nephrology service. Past Medical History Past Medical History: Dialysis, Hyperlipidemia, Hypertension, Renal Disease Additional Past Medical History / Comment(s): "spot on liver", back pain History of Any Multi-Drug Resistant Organisms: None Reported Past Surgical History: Orthopedic Surgery Additional Past Surgical History / Comment(s): 07/01/16 NICO. dialysis graft to right upper arm, jaw surgery (titanium screws) Past Anesthesia/Blood Transfusion Reactions: No Reported Reaction Past Psychological History: Bipolar, Depression Additional Psychological History / Comment(s): Pt resides with one of his brothers. He does not drive. Smoking Status: Current every day smoker Past Alcohol Use History: Occasional Additional Past Alcohol Use History / Comment(s): Pt started smoking around age 7 or 8 yrs. He drinks on a daily basis-brother states he is an alcoholic 12/06 pt denies alcohol use. 04/24/17 pt states he drinks in moderation, 2-3 drinks/day. Past Drug Use History: Cocaine, Heroin, Marijuana Additional Drug Use History / Comment(s): marijauna and cocaine last used 02/2017 - Past Family History Father Additional Family Medical History / Comment(s): Father was an alcoholic and at 44. Mother Family Medical History: No Reported History Additional Family Medical History / Comment(s): Mother is healthy. Brother(s) Family Medical History: Diabetes Mellitus Medications and Allergies Home Medications Medication Instructions Recorded Confirmed Type Hydrocodone/Acetaminophen [Oneida 1 tab PO Q6HR PRN 04/05/18 04/05/18 History 5-325] Sevelamer [Renvela] 800 mg PO TID-W/MEALS tab 04/07/18 Rx cloNIDine HCL [Catapres] 0.1 mg PO BID tab 04/07/18 Rx Allergies Allergy/AdvReac Type Severity Reaction Status Date / Time aspirin AdvReac Nausea & Verified 04/05/18 16:44 Vomiting Physical Exam Vitals: Vital Signs Temp Pulse Pulse Resp BP Pulse Ox 04/15/18 11:57 88 04/15/18 11:52 98.0 F 88 16 123/82 96 04/15/18 11:48 84 04/15/18 08:49 92 04/15/18 08:39 88 04/15/18 08:00 98.1 F 94 16 109/70 96 04/15/18 04:00 97.5 F L 89 15 125/86 97 04/15/18 00:00 74 19 120/80 93 L 04/14/18 20:45 110 H 22 138/90 100 04/14/18 20:21 113 H 18 04/14/18 20:12 122 H 20 04/14/18 19:54 160 H 92 L 04/14/18 14:08 97.0 F L 81 16 129/69 94 L Intake and Output 04/14/18 04/15/18 04/15/18 22:59 06:59 14:59 Intake Total 520 250 Output Total 0 Balance 0 520 250 Intake: IV 40 10 0.9 20 Invasive Line 3 20 10 Oral 480 240 Output: Urine 0 Other: Voiding Method Toilet Toilet # Bowel Movements 1 Weight 64.41 kg 68.5 kg - Constitutional General appearance: no acute distress - Respiratory Respiratory: bilateral: rales - Cardiovascular Rhythm: regular Heart sounds: normal: S1, S2 Abnormal Heart Sounds: systolic murmur Results 04/14/18 21:01 04/14/18 21:01 Cardiac Enzymes 04/14/18 04/14/18 Range/Units 21:01 21:01 AST 47 (17-59) U/L Troponin I 0.021 (0.000-0.034) ng/mL CBC 04/14/18 Range/Units 21:01 WBC 5.6 (3.8-10.6) k/uL RBC 3.20 L (4.30-5.90) m/uL Hgb 10.1 L (13.0-17.5) gm/dL Hct 32.3 L (39.0-53.0) % Plt Count 224 (150-450) k/uL Comprehensive Metabolic Panel 04/14/18 Range/Units 21:01 Sodium 143 (137-145) mmol/L Potassium 5.9 H (3.5-5.1) mmol/L Chloride 102 (98-107) mmol/L Carbon Dioxide 29 (22-30) mmol/L BUN 56 H (9-20) mg/dL Creatinine 7.61 H* (0.66-1.25) mg/dL Glucose 127 H (74-99) mg/dL Calcium 9.2 (8.4-10.2) mg/dL AST 47 (17-59) U/L ALT 41 (21-72) U/L Alkaline Phosphatase 493 H (38-126) U/L Total Protein 6.6 (6.3-8.2) g/dL Albumin 3.2 L (3.5-5.0) g/dL Current Medications Generic Name Dose Route Start Last Admin Trade Name Freq PRN Reason Stop Dose Admin Hydrocodone Bitart/Acetaminophen 1 each 04/09/18 15:26 04/15/18 07:09 Oneida 10 PO 1 each Q6H PRN Administration Pain Albuterol/Ipratropium 3 ml 04/10/18 12:00 04/15/18 11:48 Duoneb 0.5 Mg-3 Mg/3 Ml Soln INHALATION 3 ml RT-QID BRITTON Administration Amlodipine Besylate 5 mg 04/10/18 10:15 04/15/18 10:59 Norvasc PO Not Given DAILY BRITTON Clonidine 0.3 mg 04/09/18 09:00 04/15/18 10:59 Catapres PO Not Given TID BRITTON Diphenhydramine HCl 25 mg 04/10/18 09:21 04/13/18 08:42 Benadryl IVP 25 mg Q6HR PRN Administration Allergy Symptoms Hydralazine HCl 10 mg 04/09/18 13:16 04/11/18 02:33 Apresoline IVP 10 mg Q4HR PRN Administration Blood Pressure - High Lorazepam 0.5 mg 04/14/18 20:27 04/14/18 20:38 Ativan IM 0.5 mg ONCE PRN Administration Anxiety Lorazepam 1 mg 04/14/18 20:35 04/15/18 07:01 Ativan IV 1 mg Q6HR PRN Administration Anxiety Naloxone HCl 0.2 mg 04/05/18 21:41 Narcan IV Q2M PRN Opioid Reversal Sevelamer Carbonate 800 mg 04/06/18 17:30 04/15/18 06:56 Renvela PO 800 mg TID-W/MEALS BRITTON Administration Sodium Chloride 2 spray 04/08/18 01:25 04/10/18 18:52 Deep Sea NASAL 2 spray QID PRN Administration Dry Nasal Passages Intake and Output 04/14/18 04/15/18 04/15/18 22:59 06:59 14:59 Intake Total 520 250 Output Total 0 Balance 0 520 250 Intake: IV 40 10 0.9 20 Invasive Line 3 20 10 Oral 480 240 Output: Urine 0 Other: Voiding Method Toilet Toilet # Bowel Movements 1 Weight 64.41 kg 68.5 kg 04/14/18 21:01 04/14/18 21:01 Assessment and Plan Assessment: Assessment #1 end-stage renal disease on hemodialysis #2 electrolytes imbalance with hyperkalemia #3 probably volume overload #4 hypertension #5 dyslipidemia #6 suicidal ideation. Plan #1 the patient seems to be hemodynamically stable at this point #2 the EKG did not show any significant ST or T-wave abnormalities. #3 I will rule out an acute coronary event by checking the cardiac enzymes #4 recent echocardiogram showed normal LV function without significant valvular abnormalities #5 we will check with a nephrology service regarding the benefit from diuretics #6 follow up with the patient.
--- NOTE | 2018-04-15 13:09 | CDI ---
Last Revision, May 2017 Documentation Clarification Form Date: 04/13/2018 2:18:00 PM From: Lisa Dillon RN, CCDS Admit Date: 04/06/2018 8:49:00 PM Patient Name: Edgar Guillen Visit Number: [id number] Discharge Date: ATTENTION: The Clinical Documentation Specialists (CDI) and [facility] Coding Staff appreciate your assistance in clarifying documentation. Please respond to the clarification below the line at the bottom and electronically sign. The CDI & [facility] Coding staff will review the response and follow-up if needed. Please note: Queries are made part of the Legal Health Record. If you have any questions, please contact the author of this message via ITS. Justin Denise MD Protein Calorie Malnutrition has been documented in your progress note on . History/Risk Factors: ESRD on Hemodialysis, HTN, Depression, Alcohol Use Clinical Indicators: Present with abdominal cramping to the epigastric region. Denies any nausea or vomiting. Patient is drinking alcohol today. He has a past medical history of decreased appetite with weight loss. Amount not specified. Per nutrition assessment his appetite is good. He has difficulty chewing related to endentulous poor dentition. His physical appearance is well nourished. Labs: Albumin 4.0, 3.1, 27.7 3.0 Total Protein: 7.6, 6.4, 5.6, 6.3 Current BMI: 22.2 Treatment: Nephro with breakfast, Commercial beverage, diet modification: soft foods, chopped meets Monitor Intake Dietary Consult: Yes Lab monitoring: Protein, Albumin In your professional opinion, can you please clarify if these findings signify one of the following conditions? Mild Protein-Calorie Malnutrition Other condition, please specify Unable to determine Please continue to document in your progress notes and discharge summary in order to capture severity of illness and risk of mortality. Include clinical findings that support your diagnosis . MTDD
--- NOTE | 2018-04-15 13:30 | P.PN ---
Subjective Patient is seen in follow-up for end-stage renal disease. He is maintained on hemodialysis on a Thursday schedule. Patient continues to have suicidal thoughts. He states he is still hearing voices but better since admission. He's being followed by psychiatry. Awaits placement to psychiatry unit. This morning he had a panic attack. He was transferred to the cardiac floor. VQ scan revealed no evidence of PE. He was refusing dialysis this morning but is now agreeable. Denies chest pain or shortness of breath. Vital signs are stable. General: The patient appeared well nourished and normally developed. HEENT: Head exam is unremarkable. Neck is without jugular venous distension. LUNGS: Lungs are clear to auscultation and percussion. Breath sounds decreased. HEART: Rate and Rhythm are regular. First and second heart sounds normal. No murmurs, rubs or gallops. ABDOMEN: Abdominal exam reveals normal bowel sounds. Non-tender and non- distended. No evidence of peritonitis. EXTREMITITES: No clubbing, cyanosis, or edema. Objective - Vital Signs Vital signs: Vital Signs Temp 98.0 F 04/15/18 11:52 Pulse 88 04/15/18 11:57 Resp 16 04/15/18 11:52 BP 123/82 04/15/18 11:52 Pulse Ox 96 04/15/18 11:52 Intake & Output 04/14/18 04/15/18 04/15/18 18:59 06:59 18:59 Intake Total 370 520 250 Output Total 0 Balance 370 520 250 Weight 68.5 kg Intake: IV 10 40 10 0.9 20 Invasive Line 3 10 20 10 Oral 360 480 240 Output: Urine 0 Other: Voiding Method Toilet # Voids 2 # Bowel Movements 1 1 - Labs CBC & Chem 7: 04/14/18 21:01 04/14/18 21:01 Labs: Abnormal Lab Results - Last 24 Hours (Table) 04/14/18 04/14/18 04/14/18 Range/Units 21:01 21:01 21:01 RBC 3.20 L (4.30-5.90) m/uL Hgb 10.1 L (13.0-17.5) gm/dL Hct 32.3 L (39.0-53.0) % MCV 101.0 H (80.0-100.0) fL D-Dimer 0.95 H (<0.60) mg/L FEU Potassium 5.9 H (3.5-5.1) mmol/L BUN 56 H (9-20) mg/dL Creatinine 7.61 H* (0.66-1.25) mg/dL Glucose 127 H (74-99) mg/dL Alkaline Phosphatase 493 H (38-126) U/L Albumin 3.2 L (3.5-5.0) g/dL Assessment and Plan Plan: Assessment: 1. End-stage renal disease maintained on hemodialysis on a Thursday schedule via right upper extremity AV fistula. 2. Mild hyperkalemia secondary to chronic kidney disease. Improved postdialysis. 3. Suicidal ideation being followed by psychiatry. 4. Chronic kidney disease mineral bone disease. Phosphorus level 5.5 - on higher end of goal. 5. Hypertension with chronic kidney disease. Better. Plan: Hemodialysis today. Will challenge ultrafiltration. Maintain Renvela with meals. Maintain current antihypertensives. Patient doesn't make much urine. Diuretics will not be of much benefit.
[2018-04-15] MEDS: diphenhydrAMINE 50 MG/ML 1 ML VIAL IVP PRN (14:04)
[2018-04-15 14:51] VITALS: BMI 23.6
--- NOTE | 2018-04-15 23:27 | PN ---
PROGRESS NOTE DATE OF SERVICE: 04/15/2018. SUBJECTIVE: A 67-year-old male who is breathing much better today. His blood pressure is better controlled. He was monitored up on the monitor overnight. He denies any suicidal ideations. He wants to go home tomorrow. He has stuff to do at home, he has bills to pay. He denies suicidal ideations. Possibly discharge home tomorrow once cleared by Psychiatry from suicidal ideations. He denies suicidal ideations for the last 3 days. I will send him home tomorrow. PHYSICAL EXAMINATION: Cardiovascular S1-S2. Lungs clear. GI soft. Appears in no acute distress. Vital signs is stable. Low probability of pulmonary embolism on V/Q scan. ASSESSMENT: 1. End-stage renal disease. 2. Acute dyspnea. 3. Anemia. 4. Possibly fluid overload. Feels better after dialysis today. DISPOSITION: Send him home in the morning. CONDITION: Stable. FOLLOWUP: Follow up with outpatient counseling and dialysis will be needed three times a week. PROGNOSIS: Poor due to noncompliance. MMODL / IJN: [id number] /
[2018-04-16] MEDS: SEVELAMER 800 MG TAB PO SCH ×2 (07:10→12:21)
[2018-04-16 07:16] LABS: Basophils # (A) 0.1 k/uL (0-0.2); Basophils % (A) 1 %; Eosinophils # (A) 0.2 k/uL (0-0.7); Eosinophils % (A) 4 %; HCT 31.3 % (39.0-53.0); HGB 10.1 gm/dL (13.0-17.5); Lymphocytes # (A) 1.2 k/uL (1.0-4.8); Lymphocytes % (A) 26 %; MCH 32.7 pg (25.0-35.0); MCHC 32.4 g/dL (31.0-37.0); MCV 100.9 fL (80.0-100.0); Macrocytosis Slight; Mean Platelet Volume 7.2; Monocytes # (A) 0.3 k/uL (0-1.0); Monocytes % (A) 6 %; Neutrophils # (A) 2.7 k/uL (1.3-7.7); Neutrophils % (A) 60 %; Platelet Count 296 k/uL (150-450); RDW 14.3 % (11.5-15.5); WBC 4.5 k/uL (3.8-10.6)
[2018-04-16 07:33] LABS: Albumin 3.2 g/dL (3.5-5.0); Calcium 9.1 mg/dL (8.4-10.2); Total Bilirubin 0.4 mg/dL (0.2-1.3); Total Protein 6.6 g/dL (6.3-8.2)
[2018-04-16 07:42] LABS: Potassium 6.2 mmol/L (3.5-5.1)
[2018-04-16] MEDS: IPRATROPIUM-ALBUTEROL 3 ML NEB INHALATION SCH ×2 (07:46→11:19)
[2018-04-16] MEDS: HYDROcodone/APAP 10-325MG 1 EACH TAB PO PRN ×2 (09:00→14:06)
[2018-04-16] MEDS: amLODIPine 5 MG TAB PO SCH (09:00)
[2018-04-16] MEDS: cloNIDine HCL 0.1 MG TAB PO SCH ×2 (09:00→16:13)
--- NOTE | 2018-04-16 09:56 | P.CN ---
Psychiatric Consult - . Consult date: 04/16/18 Consult:: 04/06/18 12:14 Depression and suicidal Assessment and Plan Assessment: General Chief complaint: Psychiatric Symptoms Stated complaint: homicidal/suicidal, ab pain, sob,voices/songs 04/12/2018 and 04/15/2018 - History of Present Illness Initial comments: Chief Complaint: 67-year-old -[place] male with multiple comorbidities including end-stage renal disease. He gets dialysis Thursday, and Thursday presents with, cramping and suicidal ideation. History of Present Illness: This 67-year-old male with multiple comorbidities. He has past medical history of end-stage renal disease. He is on dialysis Thursday, and Thursday. His power system operator is Dr. Mccurdy. Patient is drinking alcohol today. He states he drinks EtOH 2-3 times a week. Patient's last dialysis was Thursday. Today presents with abdominal cramping to the epigastric region. Denies any nausea or vomiting. Patient states he's feeling suicidal. Patient wants to jump off the bridge. Patient states he's been suicidal in the past. Patient gets dialysis through a right upper extremity dialysis access. Past Medical History Past Medical History: Dialysis, Hyperlipidemia, Hypertension, Renal Disease Additional Past Medical History / Comment(s): "spot on liver", back pain, decreased appetite w/ weight loss. History of Any Multi-Drug Resistant Organisms: None Reported Past Surgical History: Orthopedic Surgery Additional Past Surgical History / Comment(s): 07/01/16 NICO. dialysis graft to right upper arm, jaw surgery (titanium screws) Past Anesthesia/Blood Transfusion Reactions: No Reported Reaction Past Psychological History: Bipolar, Depression Smoking Status: Current every day smoker Past Alcohol Use History: Occasional Past Drug Use History: Cocaine, Heroin, Marijuana - Past Family History Father Additional Family Medical History / Comment(s): Father was an alcoholic and of this at the age of 44yrs. Mother Family Medical History: No Reported History Additional Family Medical History / Comment(s): Mother is 90yrs old and healthy. Brother(s) Family Medical History: Diabetes Mellitus Musculoskeletal Examination - Abnormal/Involuntary Movements: [ tremors] Strength: [greater than antigravity (weakness:] Muscle Tone: [flaccid] Gait: [limping, in wheelchair] Station: [ unsteady Mental Status Examination - General Appearance: [appears older than stated age] Speech/Language: [ soft] Attitude/Behavior: [cooperative, guarded, withdrawn, indifferent] Mood: [ depressed, anxious, fearful, hopelessness] Affect: [ flat, incongruent, labile, blunted constricted] Orientation: [ time/date time, person, place situation] Thought Content: [wnl Risk Factors: [continues to be suicidal (ideation with plan) Perception: [wnl Thought Processes: [concrete, circumstantial, tangential Concentration/Attention Span: [ wnl] [Per observation and interview with the patient] Recent Memory: [ wnl] [2 out of 3 in 3 minutes] Remote Memory: [ impaired] [past events, as related history] Intelligence: [below average ] [based on history, based on vocabulary, syntax, grammar, and content] Judgement: [ fair] [per patient's behavior/history of present illness] Insight: [ fair] [understanding severity of illness/history of present illness] Clinical impression: This is a 67-year-old -[place] male with end-stage renal disease who is now denying any suicidal or homicidal ideation at the present present time. Recommendations: I recommend that he follow up outpatient at the local [place] mental [facility] clinic to further evaluate his pseudo-depression. He does not need a sitter at this time and again can be discharged when he is medically stable Buck Fernandez D.O. PhD attending psychiatrist Caitlin Hernandez (1) Depression Current Visit: Yes Status: Acute Priority: Low Code(s): F32.9 - MAJOR DEPRESSIVE DISORDER, SINGLE EPISODE, UNSPECIFIED SNOMED Code(s): 63523858 (2) Suicidal ideation Current Visit: Yes Status: Acute Priority: Low Code(s): R45.851 - SUICIDAL IDEATIONS SNOMED Code(s): 5554365 Plan: Today is not suicidal homicidal is oriented person place and time and does not want psychiatric treatment and wants to go home. I now believe there is a certain degree of malingering until his check came to his home. He does not need a sitter and if he is medically stable he can go. Buck Fernandez D.O. PhD attending psychiatrist Caitlin Hernandez Time with Patient: Less than 30
--- NOTE | 2018-04-16 12:59 | P.PN ---
Subjective Patient is seen in follow-up for end-stage renal disease. He is maintained on hemodialysis on a Thursday schedule. Patient presented with suicidal ideation which seems to have resolved. He's being followed by psychiatry. Denies any active complaints at this time. Potassium level .2 this morning despite having dialysis yesterday. Vital signs are stable. General: The patient appeared well nourished and normally developed. HEENT: Head exam is unremarkable. Neck is without jugular venous distension. LUNGS: Lungs are clear to auscultation and percussion. Breath sounds decreased. HEART: Rate and Rhythm are regular. First and second heart sounds normal. No murmurs, rubs or gallops. ABDOMEN: Abdominal exam reveals normal bowel sounds. Non-tender and non- distended. No evidence of peritonitis. EXTREMITITES: No clubbing, cyanosis, or edema. Objective - Vital Signs Vital signs: Vital Signs Temp 98.0 F 04/16/18 11:46 Pulse 79 04/16/18 11:46 Resp 16 04/16/18 11:46 BP 115/67 04/16/18 11:46 Pulse Ox 93 L 04/16/18 11:46 Intake & Output 04/15/18 04/16/18 04/16/18 18:59 06:59 18:59 Intake Total 850 490 240 Output Total 0 Balance 850 490 240 Weight 68.5 kg 66.5 kg Intake: IV 10 10 0.9 10 Invasive Line 3 10 Oral 840 480 240 Output: Urine 0 Other: Voiding Method Toilet # Voids 1 - Labs CBC & Chem 7: 04/16/18 06:48 04/16/18 06:48 Labs: Abnormal Lab Results - Last 24 Hours (Table) 04/16/18 04/16/18 Range/Units 06:48 06:48 RBC 3.10 L (4.30-5.90) m/uL Hgb 10.1 L (13.0-17.5) gm/dL Hct 31.3 L (39.0-53.0) % MCV 100.9 H (80.0-100.0) fL Potassium 6.2 H* (3.5-5.1) mmol/L BUN 43 H (9-20) mg/dL Creatinine 5.62 H (0.66-1.25) mg/dL Alkaline Phosphatase 299 H (38-126) U/L Albumin 3.2 L (3.5-5.0) g/dL Assessment and Plan Plan: Assessment: 1. End-stage renal disease maintained on hemodialysis on a Thursday schedule via right upper extremity AV fistula. 2. Hyperkalemia secondary to chronic kidney disease. 3. Suicidal ideation being followed by psychiatry. Overall improved. 4. Chronic kidney disease mineral bone disease. Phosphorus level 5.5 - on higher end of goal. 5. Hypertension with chronic kidney disease. Better. Plan: Hemodialysis today for 2 hours. Maintain Renvela with meals. Maintain current antihypertensives. Patient doesn't make much urine. Diuretics will not be of much benefit. Potential discharge today. He'll resume outpatient dialysis tomorrow.
--- NOTE | 2018-04-16 13:28 | P.PN ---
Subjective Progress Note Date: 04/16/18 Principal diagnosis: SOB This is a 67-year-old -[place] gentleman with a past medical history significant for end stage renal disease on hemodialysis, hypertension, dyslipidemia, chronic nicotine dependence, as well as history of alcohol and drug abuse, was admitted to the hospital with shortness of breath. The patient initially was admitted to the hospital with suicidal ideation and he was seen by a psychiatrist. He did not have any symptoms of chest pain or chest discomfort but the last night he was experiencing some shortness of breath. No dizziness or lightheadedness and no syncope. The patient is not aware of any prior history of coronary artery disease and never had any coronary revascularization. He was seen by our service last month and at that point an echocardiogram was done and revealed normal LV function with mild MR, mild TR, aortic sclerosis and mitral annular calcifications. The chest x-ray did not show any acute abnormalities. On follow-up with him today, April 162017, he seems to be feeling better in term of shortness of breath. I did discuss the case with the nephrology service and the patient will not benefit from any diuretics because he is not making urine. Having said that, I would continue the current medical regimen and follow-up with the patient on when necessary case. Objective - Vital Signs Vital signs: Vital Signs Temp 98.0 F 04/16/18 11:46 Pulse 79 04/16/18 11:46 Resp 16 04/16/18 11:46 BP 115/67 04/16/18 11:46 Pulse Ox 93 L 04/16/18 11:46 Intake & Output 04/15/18 04/16/18 04/16/18 18:59 06:59 18:59 Intake Total 850 490 240 Output Total 0 Balance 850 490 240 Weight 68.5 kg 66.5 kg Intake: IV 10 10 0.9 10 Invasive Line 3 10 Oral 840 480 240 Output: Urine 0 Other: Voiding Method Toilet # Voids 1 - Constitutional General appearance: Present: no acute distress - Respiratory Respiratory: bilateral: diminished - Cardiovascular Heart sounds: normal: S1, S2 - Labs CBC & Chem 7: 04/16/18 06:48 04/16/18 06:48 Labs: Abnormal Lab Results - Last 24 Hours (Table) 04/16/18 04/16/18 Range/Units 06:48 06:48 RBC 3.10 L (4.30-5.90) m/uL Hgb 10.1 L (13.0-17.5) gm/dL Hct 31.3 L (39.0-53.0) % MCV 100.9 H (80.0-100.0) fL Potassium 6.2 H* (3.5-5.1) mmol/L BUN 43 H (9-20) mg/dL Creatinine 5.62 H (0.66-1.25) mg/dL Alkaline Phosphatase 299 H (38-126) U/L Albumin 3.2 L (3.5-5.0) g/dL Assessment and Plan Assessment: Assessment #1 end-stage renal disease on hemodialysis #2 electrolytes imbalance with hyperkalemia #3 probably volume overload #4 hypertension #5 dyslipidemia #6 suicidal ideation. Plan #1 the patient seems to be hemodynamically stable at this point #2 the EKG did not show any significant ST or T-wave abnormalities. #3 we'll follow-up with the patient on when necessary case.
[2018-04-16 15:31] VITALS: BP 136/84; RESP 18; TEMP 97.9
[2018-04-16 15:34] VITALS: PULSE 75
--- NOTE | 2018-04-16 16:43 | P.CNPUL ---
History of Present Illness Consult date: 04/15/18 (Late entry note) Reason for consult: dyspnea, COPD, hypoxemia Chief complaint: Shortness of breath and chest tightness History of present illness: 67-year-old male with schizophrenia and auditory hallucination also has problems associated chronic renal failure has been on hemodialysis patient has some chest tightness and shortness of breath I was asked to evaluate this patient further patient had a VQ scan performed which was very low probability for pulmonary embolism, her symptoms are more of a atypical nature with a stuffiness congestion in the nasal area sinuses and intermittent cough denies any productive his sputum production denies any night sweats fever or chills during my evaluation patient was pain-free but does have issues this is associated with chronic pain syndrome and has been on pain medications Ammann patient is due for his hemodialysis, renal services has been following, on specific questioning denies any night sweats fever or chills denies and loss of consciousness or hemiparesis, denies any other bowel bladder dysfunction Review of Systems All systems: negative Past Medical History Past Medical History: Dialysis, Hyperlipidemia, Hypertension, Renal Disease Additional Past Medical History / Comment(s): "spot on liver", back pain History of Any Multi-Drug Resistant Organisms: None Reported Past Surgical History: Orthopedic Surgery Additional Past Surgical History / Comment(s): 07/01/16 NICO. dialysis graft to right upper arm, jaw surgery (titanium screws) Past Anesthesia/Blood Transfusion Reactions: No Reported Reaction Past Psychological History: Bipolar, Depression Additional Psychological History / Comment(s): Pt resides with one of his brothers. He does not drive. Smoking Status: Current every day smoker Past Alcohol Use History: Occasional Additional Past Alcohol Use History / Comment(s): Pt started smoking around age 7 or 8 yrs. He drinks on a daily basis-brother states he is an alcoholic 12/06 pt denies alcohol use. 04/24/17 pt states he drinks in moderation, 2-3 drinks/day. Past Drug Use History: Cocaine, Heroin, Marijuana Additional Drug Use History / Comment(s): marijauna and cocaine last used 02/2017 - Past Family History Father Additional Family Medical History / Comment(s): Father was an alcoholic and at 44. Mother Family Medical History: No Reported History Additional Family Medical History / Comment(s): Mother is healthy. Brother(s) Family Medical History: Diabetes Mellitus Medications and Allergies Home Medications Medication Instructions Recorded Confirmed Type Sevelamer [Renvela] 800 mg PO TID-W/MEALS tab 04/07/18 Rx amLODIPine [Norvasc] 5 mg PO DAILY tab 04/16/18 Rx cloNIDine HCL [Catapres] 0.3 mg PO TID tab 04/16/18 Rx Allergies Allergy/AdvReac Type Severity Reaction Status Date / Time aspirin AdvReac Nausea & Verified 04/05/18 16:44 Vomiting Physical Exam Vitals: Vital Signs Temp Pulse Pulse Pulse Resp BP Pulse Ox 04/16/18 15:30 97.9 F 75 18 136/84 95 04/16/18 11:46 98.0 F 79 16 115/67 93 L 04/16/18 11:33 80 04/16/18 11:22 84 04/16/18 07:55 98.5 F 81 16 130/78 97 04/16/18 04:00 98.0 F 84 18 126/81 95 04/16/18 00:00 97.3 F L 85 18 147/90 94 L 04/15/18 20:00 97.5 F L 82 19 149/91 96 04/15/18 19:38 82 16 Intake and Output 04/16/18 04/16/18 04/16/18 06:59 14:59 22:59 Intake Total 490 240 240 Output Total 0 Balance 490 240 240 Intake: IV 10 0.9 10 Oral 480 240 240 Output: Urine 0 Other: Voiding Method Toilet # Voids 1 Weight 66.5 kg - Constitutional General appearance: average body habitus, cooperative, disheveled, no acute distress - EENT Eyes: PERRLA, poor dentition, normal appearance ENT: hearing grossly normal Ears: bilateral: normal - Neck Neck: normal ROM Carotids: bilateral: upstroke normal Thyroid: bilateral: normal size - Respiratory Respiratory: bilateral: diminished, rales, negative: dullness, rhonchi, wheezing , prolonged expiration, prolonged inspiration - Cardiovascular Rhythm: regular Heart sounds: normal: S1, S2 - Gastrointestinal General gastrointestinal: decreased bowel sounds, normal bowel sounds, soft - Integumentary Integumentary: normal turgor - Neurologic Neurologic: CNII-XII intact - Musculoskeletal Musculoskeletal: gait normal, generalized weakness, strength equal bilaterally - Psychiatric Psychiatric: A&O x's 3, appropriate affect, intact judgment & insight Results - Laboratory Findings CBC and BMP: 04/16/18 06:48 04/16/18 06:48 PT/INR, D-dimer PT 10.2 sec (9.0-12.0) 04/05/18 16:20 INR 1.0 (<1.2) 04/05/18 16:20 D-Dimer 0.95 mg/L FEU (<0.60) H 04/14/18 21:01 Abnormal lab findings: Abnormal Labs 04/05/18 04/05/18 04/05/18 16:20 16:20 16:20 WBC RBC 3.41 L Hgb 11.4 L Hct 34.3 L MCV 100.6 H Lymphocytes # D-Dimer Potassium 5.6 H Chloride Carbon Dioxide BUN 28 H Creatinine 8.12 H* Glucose Phosphorus 5.5 H AST 82 H Alkaline Phosphatase 200 H Total Protein Albumin 04/07/18 04/07/18 04/08/18 09:06 09:06 10:45 WBC 3.6 L RBC 3.15 L 3.01 L Hgb 10.6 L 10.2 L Hct 32.8 L 31.2 L MCV 104.0 H 103.6 H Lymphocytes # 0.9 L 0.7 L D-Dimer Potassium Chloride Carbon Dioxide BUN 29 H Creatinine 5.83 H Glucose 143 H Phosphorus AST Alkaline Phosphatase 329 H Total Protein Albumin 3.1 L 04/08/18 04/12/18 04/12/18 10:45 08:15 08:15 WBC RBC 3.30 L Hgb 11.2 L Hct 33.9 L MCV 102.7 H Lymphocytes # D-Dimer Potassium 5.6 H Chloride 110 H Carbon Dioxide 20 L BUN 30 H 57 H Creatinine 5.23 H 8.10 H* Glucose 101 H 121 H Phosphorus 4.7 H AST Alkaline Phosphatase 288 H 401 H Total Protein 5.6 L Albumin 2.7 L 3.0 L 04/14/18 04/14/18 04/14/18 21:01 21:01 21:01 WBC RBC 3.20 L Hgb 10.1 L Hct 32.3 L MCV 101.0 H Lymphocytes # D-Dimer 0.95 H Potassium 5.9 H Chloride Carbon Dioxide BUN 56 H Creatinine 7.61 H* Glucose 127 H Phosphorus AST Alkaline Phosphatase 493 H Total Protein Albumin 3.2 L 04/16/18 04/16/18 06:48 06:48 WBC RBC 3.10 L Hgb 10.1 L Hct 31.3 L MCV 100.9 H Lymphocytes # D-Dimer Potassium 6.2 H* Chloride Carbon Dioxide BUN 43 H Creatinine 5.62 H Glucose Phosphorus AST Alkaline Phosphatase 299 H Total Protein Albumin 3.2 L - Diagnostic Findings Chest x-ray: report reviewed, image reviewed (V/Q scan finding reviewed) Assessment and Plan Assessment: COPD with possible exacerbation will obtain patient on bronchodilators Chronic renal failure stage V patient is due for hemodialysis today Atypical chest pain doubt any issues associated with pulmonary embolism Major depression Electrolyte imbalance with hyperkalemia and phosphatemia Hypertension hypertensive cardiovascular disease Plan: Planned for hemodialysis later on today Continue current plan of care and therapy bronchodilators Pain medication as prescribed by the primary service will follow clinical course closely Time with Patient: Greater than 30
--- NOTE | 2018-04-16 16:48 | P.PN ---
Subjective Progress Note Date: 04/16/18 Principal diagnosis: Chronic renal failure on hemodialysis, schizophrenia, hypertension hypertensive cardiovascular disease with uncontrolled hypertension, chronic shortness of breath, COPD, atypical chest pain 04/16/2018, patient seen eval examined during the rounds clinically patient has been doing well awake and alert breathing comfortably no obvious distress is present the pain discomfort feeling that was noted yesterday have resolved, patient is due getting an another hemodialysis today seems to be helping the respiratory symptoms likely will be discharged afterwards 67-year-old male with schizophrenia and auditory hallucination also has problems associated chronic renal failure has been on hemodialysis patient has some chest tightness and shortness of breath I was asked to evaluate this patient further patient had a VQ scan performed which was very low probability for pulmonary embolism, her symptoms are more of a atypical nature with a stuffiness congestion in the nasal area sinuses and intermittent cough denies any productive his sputum production denies any night sweats fever or chills during my evaluation patient was pain-free but does have issues this is associated with chronic pain syndrome and has been on pain medications Ammann patient is due for his hemodialysis, renal services has been following, on specific questioning denies any night sweats fever or chills denies and loss of consciousness or hemiparesis, denies any other bowel bladder dysfunction Objective - Vital Signs Vital signs: Vital Signs Temp 97.9 F 04/16/18 15:30 Pulse 75 04/16/18 15:30 Resp 18 04/16/18 15:30 BP 136/84 04/16/18 15:30 Pulse Ox 95 04/16/18 15:30 Intake & Output 04/15/18 04/16/18 04/16/18 18:59 06:59 18:59 Intake Total 850 490 480 Output Total 0 Balance 850 490 480 Weight 68.5 kg 66.5 kg Intake: IV 10 10 0.9 10 Invasive Line 3 10 Oral 840 480 480 Output: Urine 0 Other: Voiding Method Toilet # Voids 1 - Exam General: The patient appeared well nourished and normally developed. HEENT: Head exam is unremarkable. Neck is without jugular venous distension. Neck: Supple, neck veins are prominent, no masses seen eval lymphadenopathy is present LUNGS: Lungs fine inspiratory expiratory wheezing with few basal crackles overall Breath sounds decreased. HEART: Rate and Rhythm are regular. First and second heart sounds normal. No murmurs, rubs or gallops. ABDOMEN: Abdominal exam reveals normal bowel sounds. Non-tender and non- distended. No evidence of peritonitis. EXTREMITITES: No clubbing, cyanosis, or edema. 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 moving all 4 extremities - Labs CBC & Chem 7: 04/16/18 06:48 04/16/18 06:48 Labs: Abnormal Lab Results - Last 24 Hours (Table) 04/16/18 04/16/18 Range/Units 06:48 06:48 RBC 3.10 L (4.30-5.90) m/uL Hgb 10.1 L (13.0-17.5) gm/dL Hct 31.3 L (39.0-53.0) % MCV 100.9 H (80.0-100.0) fL Potassium 6.2 H* (3.5-5.1) mmol/L BUN 43 H (9-20) mg/dL Creatinine 5.62 H (0.66-1.25) mg/dL Alkaline Phosphatase 299 H (38-126) U/L Albumin 3.2 L (3.5-5.0) g/dL Assessment and Plan Assessment: COPD with possible exacerbation will continue patient on bronchodilators as needed Chronic renal failure stage V patient is getting additional hemodialysis today Atypical chest pain doubt any issues associated with pulmonary embolism Major depression Electrolyte imbalance with hyperkalemia and phosphatemia Hypertension hypertensive cardiovascular disease Plan: Undergoing hemodialysis today Continue current plan of care and therapy bronchodilators Pain medication as prescribed by the primary service will follow clinical course closely Time with Patient: Greater than 30
== END 2018-04-16 16:41 | disposition home or self-care (01) | DRG 682 ==
LOC: EC 15:10 → 4MS4W 21:39 → UNDOADMOB 21:39 → 4MS4W 04-06 00:07 → OBSVTOIN 04-06 20:49 → 4MS4W 04-06 20:49 → INTOOBSV 04-06 20:49 → 3SCARD 04-14 21:24
PROVIDERS: ADMIT Family Medicine; ATTEND Family Medicine
PROC: 5A1D70Z Performance of Urinary Filtration, Intermittent, Less than 6 Hours Per Day (ICD-10-PCS; principal; 2018-04-06)
PROC: 5A1D70Z Performance of Urinary Filtration, Intermittent, Less than 6 Hours Per Day (ICD-10-PCS; 2018-04-08)
PROC: 5A1D70Z Performance of Urinary Filtration, Intermittent, Less than 6 Hours Per Day (ICD-10-PCS; 2018-04-10)
PROC: 5A1D70Z Performance of Urinary Filtration, Intermittent, Less than 6 Hours Per Day (ICD-10-PCS; 2018-04-13)
PROC: 5A1D70Z Performance of Urinary Filtration, Intermittent, Less than 6 Hours Per Day (ICD-10-PCS; 2018-04-15)
PROC: 5A1D70Z Performance of Urinary Filtration, Intermittent, Less than 6 Hours Per Day (ICD-10-PCS; 2018-04-16)
DX: I13.11 Hypertensive heart and chronic kidney disease without heart failure, with stage 5 chronic kidney disease, or end stage renal disease (principal); N18.6 End stage renal disease; R45.851 Suicidal ideations; J44.1 Chronic obstructive pulmonary disease with (acute) exacerbation; E46 Unspecified protein-calorie malnutrition; E87.5 Hyperkalemia; I08.3 Combined rheumatic disorders of mitral, aortic and tricuspid valves; E83.39 Other disorders of phosphorus metabolism; E83.9 Disorder of mineral metabolism, unspecified; R45.850 Homicidal ideations; E87.70 Fluid overload, unspecified; F20.9 Schizophrenia, unspecified; R07.89 Other chest pain; M51.36 Other intervertebral disc degeneration, lumbar region; E78.5 Hyperlipidemia, unspecified; F32.9 Major depressive disorder, single episode, unspecified; F41.0 Panic disorder [episodic paroxysmal anxiety]; L81.4 Other melanin hyperpigmentation; G89.4 Chronic pain syndrome; D64.9 Anemia, unspecified; F10.20 Alcohol dependence, uncomplicated; F12.11 Cannabis abuse, in remission; F13.11 Sedative, hypnotic or anxiolytic abuse, in remission; F14.11 Cocaine abuse, in remission; E66.9 Obesity, unspecified; Z68.23 Body mass index [BMI] 23.0-23.9, adult; F17.210 Nicotine dependence, cigarettes, uncomplicated; Z71.6 Tobacco abuse counseling; Z91.15 Patient's noncompliance with renal dialysis; Z99.2 Dependence on renal dialysis; Z59.0 Homelessness; Z87.81 Personal history of (healed) traumatic fracture; Z88.6 Allergy status to analgesic agent; Z81.1 Family history of alcohol abuse and dependence; Z83.3 Family history of diabetes mellitus
CPT/HCPCS: 36415; 74018; 78582; 80053; 82075; 83690; 83735; 83880; 84100; 84484; 85025; 85379; 85610; 85730; 90935; 93005; 94640; 99285

== ENCOUNTER 2018-05-11 04:38 | Emergency (ER) | payer MEDICARE ==
--- NOTE | 2018-05-11 05:26 | ED ---
Neck Injury/Pain HPI - General Chief Complaint: Neck Pain/Injury Stated Complaint: Neck Pain Time Seen by Provider: 05/11/18 04:58 Mode of arrival: EMS - History of Present Illness Initial Comments: Young 67-year-old male with extensive past medical history most significant for recent placement of a left dialysis port. Patient does have a history of bilateral arm grafts which have failed therefore he had a port placed by vascular surgeon a few days ago. Patient reports that it's been uncomfortable since it's been placed. He denies any redness or purulence just states that it feels uncomfortable having the tube in his neck so this morning since he couldn' t sleep all night he called 911 for transport to the hospital. The 10th hemodialysis Thursday, last attended on Thursday has not missed any dialysis - Related Data Previous Rx's Medication Instructions Recorded Sevelamer [Renvela] 800 mg PO TID-W/MEALS tab 04/07/18 amLODIPine [Norvasc] 5 mg PO DAILY tab 04/16/18 cloNIDine HCL [Catapres] 0.3 mg PO TID tab 04/16/18 Allergies Allergy/AdvReac Type Severity Reaction Status Date / Time aspirin AdvReac Nausea & Verified 04/05/18 16:44 Vomiting Review of Systems ROS Statement: Those systems with pertinent positive or pertinent negative responses have been documented in the HPI. ROS Other: All systems not noted in ROS Statement are negative. Past Medical History Past Medical History: Dialysis, Hyperlipidemia, Hypertension, Renal Disease Additional Past Medical History / Comment(s): "spot on liver", back pain History of Any Multi-Drug Resistant Organisms: None Reported Past Surgical History: Orthopedic Surgery Additional Past Surgical History / Comment(s): 07/01/16 NICO. dialysis graft to right upper arm, jaw surgery (titanium screws) Past Anesthesia/Blood Transfusion Reactions: No Reported Reaction Past Psychological History: Bipolar, Depression Smoking Status: Current every day smoker Past Alcohol Use History: Occasional Past Drug Use History: Cocaine, Heroin, Marijuana - Past Family History Father Additional Family Medical History / Comment(s): Father was an alcoholic and at 44. Mother Family Medical History: No Reported History Additional Family Medical History / Comment(s): Mother is healthy. Brother(s) Family Medical History: Diabetes Mellitus General Exam - General Exam Comments Initial Comments: Physical Exam GENERAL: Chronically ill-appearing 67-year-old male in no acute distress HENT: Normocephalic, Atraumatic. EYES: PERRL, EOMI PULMONARY: Unlabored respirations. No audible rales rhonchi or wheezing was noted. CARDIOVASCULAR: RRR ABDOMEN: Soft and nontender with normal bowel sounds. SKIN: Bilateral upper extremities with well-healed scars consistent with history of vascular grafts Left upper chest with dialysis port in place, no surrounding erythema or tenderness, port sewn into place, sutures in good repair : Deferred NEUROLOGIC: Patient is alert and oriented x3. Moving all extremities spontaneously MUSCULOSKELETAL: Normal extremities with adequate strength and full range of motion. No lower extremity swelling or edema. No calf tenderness. PSYCHIATRIC: Labile, agitated Limitations: no limitations Course Vital Signs 05/11/18 05/11/18 04:41 05:09 Temperature 97.8 F Pulse Rate 95 Respiratory 16 Rate Blood Pressure 230/156 119/112 O2 Sat by Pulse 99 97 Oximetry Medical Decision Making - Medical Decision Making Patient was seen and evaluated history is obtained from the patient as well as review of the medical record X-rays were ordered to confirm proper placement of the dialysis port IM morphine was given for pain management Patient reported only minimal improvement with morphine IM Dilaudid was ordered Patient is hypertensive however he is due for dialysis at 10 AM today Xrays with port in good position, advised patient to follow up with PCP or vascular surgeon for re-evaluation Patient expressed understanding and agreement with plan Return parameters discussed, patient discharged home in stable condition Disposition Clinical Impression: Pain at surgical incision Disposition: HOME SELF-CARE Instructions: Care For Your Stitches (DC) Additional Instructions: Need to attend dialysis today have your blood pressure reevaluated after dialysis Is patient prescribed a controlled substance at d/c from ED?: No Referrals: Justin Romano MD [Primary Care Provider] - 1-2 days
[2018-05-11] MEDS ORDERED: MORPHINE SULFATE 4 MG/ML SYRINGE IVP STA (05:27)
--- NOTE | 2018-05-11 05:34 | XR ---
EXAMINATION TYPE: XR chest 2V DATE OF EXAM: 05/11/2018 COMPARISON: 02/26/2018 HISTORY: Chest pain TECHNIQUE: Frontal and lateral views of the chest are obtained. FINDINGS: There is no heart failure nor confluent pneumonic infiltrate. Costophrenic angles are yari r. There is left side central venous catheter with tip in the lower superior vena cava. There is no p leural effusion. There is no pneumothorax. There are chest leads. IMPRESSION: No active cardiopulmonary disease. Normal heart. Heart and lungs unchanged.
--- NOTE | 2018-05-11 05:35 | XR ---
EXAMINATION TYPE: XR cervical spine limited DATE OF EXAM: 05/11/2018 COMPARISON: NONE HISTORY: Neck pain TECHNIQUE: 3 views FINDINGS: Epiglottis is normal. Prevertebral soft tissues appear normal. There is moderate spondylosi s in the cervical spine from C2 to C6. There is some loss of height of C4 and C5 that appears chronic . Posterior elements are intact. Atlantoaxial facet joint is intact. There are no cervical ribs. Ther e is some straightening of the cervical spine and slight kyphotic curvature at C4-5 level. IMPRESSION: Spondylotic changes. Old mild compression deformities. No acute fracture.
[2018-05-11] MEDS ORDERED: HYDROmorphone 1 MG/ML 1 ML SYRINGE IM STA (06:36)
[2018-05-11 07:32] VITALS: BP 207/106; PULSE 68; RESP 18; TEMP 97.9
== END 2018-05-11 07:30 | disposition home or self-care (01) ==
LOC: EC 04:38
DX: M54.2 Cervicalgia (principal); F17.200 Nicotine dependence, unspecified, uncomplicated; Z88.6 Allergy status to analgesic agent; Z99.2 Dependence on renal dialysis
CPT/HCPCS: 72040; 71046; 99284; 96374; 96372; J2270; J1170

== ENCOUNTER 2018-06-14 07:39 | Inpatient (IN) | payer MEDICARE, OTHER ==
[2018-06-14] MEDS ORDERED: IPRATROPIUM-ALBUTEROL 3 ML NEB INHALATION STA (07:49)
[2018-06-14] MEDS ORDERED: amLODIPine 5 MG TAB PO STA ×2 (07:51→09:23)
--- NOTE | 2018-06-14 07:56 | ED ---
General Adult HPI - General Chief complaint: Shortness of Breath Stated complaint: OTF Time Seen by Provider: 06/14/18 07:44 Source: patient, EMS, RN notes reviewed Mode of arrival: EMS Limitations: no limitations - History of Present Illness Initial comments: Patient is a pleasant 67-year-old male presenting to the emergency department with concerns for not having dialysis. states he was in this area and last had dialysis 1 week ago. Patient was supposed to be transferred to [facility] in [place] for dialysis however they were unable to have it done. Patient called his dialysis in this area again and they were unable to fit him in. Patient complains of generalized ache and dyspnea. Patient has not taken his blood pressure medicine today. Patient states he does have chronic hypertension that is poorly controlled. - Related Data Home Medications Medication Instructions Recorded Confirmed HYDROcodone/APAP 7.5-325MG [[place] 1 tab PO Q6H PRN 05/11/18 06/14/18 7.5-325] Previous Rx's Medication Instructions Recorded amLODIPine [Norvasc] 5 mg PO DAILY tab 04/16/18 Allergies Allergy/AdvReac Type Severity Reaction Status Date / Time aspirin AdvReac Nausea & Verified 06/14/18 08:58 Vomiting Review of Systems ROS Statement: Those systems with pertinent positive or pertinent negative responses have been documented in the HPI. ROS Other: All systems not noted in ROS Statement are negative. Constitutional: Denies: fever Eyes: Denies: eye pain ENT: Denies: ear pain Respiratory: Reports: dyspnea. Denies: cough Cardiovascular: Denies: chest pain Endocrine: Reports: fatigue Gastrointestinal: Reports: abdominal pain (Chronic) Genitourinary: Denies: dysuria Musculoskeletal: Reports: back pain (Chronic) Skin: Denies: rash Neurological: Denies: weakness Past Medical History Past Medical History: Dialysis, Hyperlipidemia, Hypertension, Renal Disease Additional Past Medical History / Comment(s): "spot on liver", back pain History of Any Multi-Drug Resistant Organisms: None Reported Past Surgical History: Orthopedic Surgery Additional Past Surgical History / Comment(s): 07/01/16 NICO. dialysis graft to right upper arm, jaw surgery (titanium screws) Past Anesthesia/Blood Transfusion Reactions: No Reported Reaction Past Psychological History: Bipolar, Depression Smoking Status: Current every day smoker Past Alcohol Use History: Occasional Past Drug Use History: Cocaine, Heroin, Marijuana - Past Family History Father Additional Family Medical History / Comment(s): Father was an alcoholic and at 44. Mother Family Medical History: No Reported History Additional Family Medical History / Comment(s): Mother is healthy. Brother(s) Family Medical History: Diabetes Mellitus General Exam Limitations: no limitations General appearance: alert, in no apparent distress Head exam: Present: atraumatic Eye exam: Present: normal appearance Neck exam: Present: normal inspection Respiratory exam: Present: normal lung sounds bilaterally. Absent: chest wall tenderness Cardiovascular Exam: Present: regular rate, normal rhythm GI/Abdominal exam: Present: soft. Absent: distended, tenderness, pulsatile mass Extremities exam: Present: other (Bilateral arms shunts) Back exam: Present: normal inspection. Absent: tenderness Neurological exam: Present: alert Psychiatric exam: Present: normal affect, normal mood Skin exam: Present: normal color Course Vital Signs 06/14/18 06/14/18 06/14/18 07:43 07:51 07:56 Temperature 98.0 F Pulse Rate 106 H 105 H Respiratory 24 24 Rate Blood Pressure 206/104 O2 Sat by Pulse 97 Oximetry 06/14/18 06/14/18 06/14/18 08:00 08:04 08:30 Temperature Pulse Rate 105 H 102 H 101 H Respiratory Rate Blood Pressure 206/104 201/92 O2 Sat by Pulse 100 97 Oximetry 06/14/18 06/14/18 09:00 09:18 Temperature Pulse Rate 97 96 Respiratory 24 Rate Blood Pressure 222/108 216/93 O2 Sat by Pulse 100 100 Oximetry - Reevaluation(s) Reevaluation #1: 06/14/18 11:00 Patient updated on results and plan. Case was discussed in detail with Dr. Alegria, with nephrology who will set up patient for dialysis. Case also discussed in detail with Dr. Romano, who will admit his patient. 06/14/18 11:01 Dr. Barnhart has been paged for consult EKG Findings - EKG Comments: EKG Findings:: Sinus tachycardia 104. CA 174. QRS 82. QT 366. QTc 481. Normal axis. Normal QRS. No acute ST change. Procedures - Central Line Placement Right Femoral Consent Obtained: verbal consent Time Out Performed: Yes Patient Placed on Monitor/Pulse Ox: Yes MD Prep: mask, gown, gloves Central Line Prep: Chlorhexidine scrub Local Anesthesia Used: Lidocaine 1% Amount of Anesthesia Used (mls): 2 Ultrasound Used for Placement: No Central Line Lumen Inserted: triple Central Line Position: good blood return, all ports aspirated, flushed, capped, sutured in place with 3-0 nylon Dressing Applied: Tegaderm Patient Tolerated Procedure: well, no complications Complications: none Medical Decision Making - Lab Data Result diagrams: 06/14/18 09:04 06/14/18 09:04 Lab Results 06/14/18 06/14/18 06/14/18 Range/Units 09:04 09:04 09:04 WBC 6.1 (3.8-10.6) k/uL RBC 3.13 L (4.30-5.90) m/uL Hgb 9.7 L (13.0-17.5) gm/dL Hct 30.9 L (39.0-53.0) % MCV 98.8 (80.0-100.0) fL MCH 31.0 (25.0-35.0) pg MCHC 31.4 (31.0-37.0) g/dL RDW 14.8 (11.5-15.5) % Plt Count 329 (150-450) k/uL Neutrophils % 76 % Lymphocytes % 15 % Monocytes % 3 % Eosinophils % 3 % Basophils % 1 % Neutrophils # 4.6 (1.3-7.7) k/uL Lymphocytes # 0.9 L (1.0-4.8) k/uL Monocytes # 0.2 (0-1.0) k/uL Eosinophils # 0.2 (0-0.7) k/uL Basophils # 0.1 (0-0.2) k/uL PT 10.6 (9.0-12.0) sec INR 1.0 (<1.2) APTT 24.8 (22.0-30.0) sec Sodium 144 (137-145) mmol/L Potassium 9.3 H* (3.5-5.1) mmol/L Chloride 113 H (98-107) mmol/L Carbon Dioxide 11 L (22-30) mmol/L Anion Gap 20 mmol/L BUN 102 H* (9-20) mg/dL Creatinine 19.11 H* (0.66-1.25) mg/dL Est GFR (CKD-EPI)AfAm 2 (>60 ml/min/1.73 sqM) Est GFR (CKD-EPI)NonAf 2 (>60 ml/min/1.73 sqM) Glucose 47 L* (74-99) mg/dL POC Glucose (mg/dL) (75-99) mg/dL POC Glu Physics Technical Officer ID Calcium 9.7 (8.4-10.2) mg/dL Phosphorus 8.5 H (2.5-4.5) mg/dL Magnesium 2.1 (1.6-2.3) mg/dL Total Bilirubin 0.6 (0.2-1.3) mg/dL AST 54 (17-59) U/L ALT 37 (21-72) U/L Alkaline Phosphatase 167 H (38-126) U/L NT-Pro-B Natriuret Pep pg/mL Total Protein 8.4 H (6.3-8.2) g/dL Albumin 4.5 (3.5-5.0) g/dL Amylase 200 H (30-110) U/L Lipase 825 H (23-300) U/L 06/14/18 06/14/18 Range/Units 09:04 10:15 WBC (3.8-10.6) k/uL RBC (4.30-5.90) m/uL Hgb (13.0-17.5) gm/dL Hct (39.0-53.0) % MCV (80.0-100.0) fL MCH (25.0-35.0) pg MCHC (31.0-37.0) g/dL RDW (11.5-15.5) % Plt Count (150-450) k/uL Neutrophils % % Lymphocytes % % Monocytes % % Eosinophils % % Basophils % % Neutrophils # (1.3-7.7) k/uL Lymphocytes # (1.0-4.8) k/uL Monocytes # (0-1.0) k/uL Eosinophils # (0-0.7) k/uL Basophils # (0-0.2) k/uL PT (9.0-12.0) sec INR (<1.2) APTT (22.0-30.0) sec Sodium (137-145) mmol/L Potassium (3.5-5.1) mmol/L Chloride (98-107) mmol/L Carbon Dioxide (22-30) mmol/L Anion Gap mmol/L BUN (9-20) mg/dL Creatinine (0.66-1.25) mg/dL Est GFR (CKD-EPI)AfAm (>60 ml/min/1.73 sqM) Est GFR (CKD-EPI)NonAf (>60 ml/min/1.73 sqM) Glucose (74-99) mg/dL POC Glucose (mg/dL) 44 L (75-99) mg/dL POC Glu Physics Technical Officer ID Chloe Ashley Calcium (8.4-10.2) mg/dL Phosphorus (2.5-4.5) mg/dL Magnesium (1.6-2.3) mg/dL Total Bilirubin (0.2-1.3) mg/dL AST (17-59) U/L ALT (21-72) U/L Alkaline Phosphatase (38-126) U/L NT-Pro-B Natriuret Pep 83379 pg/mL Total Protein (6.3-8.2) g/dL Albumin (3.5-5.0) g/dL Amylase (30-110) U/L Lipase (23-300) U/L - Radiology Data Radiology results: image reviewed (Chest x-ray shows mild congestion.) Critical Care Time Critical Care Time: Yes Total Critical Care Time: 34 Disposition Clinical Impression: Acute on chronic renal failure, Hyperkalemia Disposition: ADMITTED IP TO THIS [facility] Condition: Critical Is patient prescribed a controlled substance at d/c from ED?: No Referrals: Justin Romano MD [Primary Care Provider] - 1-2 days Decision Time: 11:01
--- NOTE | 2018-06-14 08:22 | XR ---
EXAMINATION TYPE: XR chest 2V DATE OF EXAM: 06/14/2018 COMPARISON: Chest x-ray from May 11, 2018 HISTORY: Shortness of breath TECHNIQUE: Frontal and lateral views of the chest are obtained. FINDINGS: There is stable large bore left internal jugular dual-lumen dialysis catheter. There is no focal air space opacity, pleural effusion, or pneumothorax seen. The cardiac silhouette size is sta ble and upper limits of normal. Mild central vascular congestion is felt present though less promin ent versus prior The osseous structures are intact. IMPRESSION: Mild central vascular congestion. No suspicious focal infiltrate.
[2018-06-14 09:37] LABS: Basophils # (A) 0.1 k/uL (0-0.2); Basophils % (A) 1 %; Eosinophils # (A) 0.2 k/uL (0-0.7); Eosinophils % (A) 3 %; HCT 30.9 % (39.0-53.0); HGB 9.7 gm/dL (13.0-17.5); Lymphocytes # (A) 0.9 k/uL (1.0-4.8); Lymphocytes % (A) 15 %; MCHC 31.4 g/dL (31.0-37.0); MCV 98.8 fL (80.0-100.0); Mean Platelet Volume 6.8; Monocytes # (A) 0.2 k/uL (0-1.0); Monocytes % (A) 3 %; Neutrophils # (A) 4.6 k/uL (1.3-7.7); Neutrophils % (A) 76 %; Platelet Count 329 k/uL (150-450); RBC 3.13 m/uL (4.30-5.90); RDW 14.8 % (11.5-15.5); WBC 6.1 k/uL (3.8-10.6)
[2018-06-14 09:45] LABS: Partial Thromboplastin Time 24.8 sec (22.0-30.0); Prothrombin Time 10.6 sec (9.0-12.0)
[2018-06-14 09:47] LABS: Albumin 4.5 g/dL (3.5-5.0); Calcium 9.7 mg/dL (8.4-10.2); Magnesium 2.1 mg/dL (1.6-2.3); Phosphorus 8.5 mg/dL (2.5-4.5); Total Bilirubin 0.6 mg/dL (0.2-1.3); Total Protein 8.4 g/dL (6.3-8.2)
[2018-06-14 10:03] LABS: Potassium 9.3 mmol/L (3.5-5.1)
[2018-06-14] MEDS ORDERED: DEXTROSE 50%-WATER 50 ML SYRINGE IVP STA ×2 (10:23→12:37)
[2018-06-14] MEDS ORDERED: ALBUTEROL NEBULIZED 2.5 MG/3 ML INHALATION STA (10:24)
[2018-06-14] MEDS ORDERED: SODIUM BICARB 8.4% 50 ML SYR (1 MEQ/ML) IV ONE (10:24)
[2018-06-14] MEDS ORDERED: FUROSEMIDE 10 MG/ML 4 ML VIAL IV STA (10:25)
[2018-06-14] MEDS ORDERED: SODIUM POLYSTYRENE SULFONATE 15 GM/60 ML BOTTLE PO STA (10:25)
[2018-06-14 10:26] LABS: Glucose,Whole Blood 44 mg/dL (75-99)
[2018-06-14] MEDS ORDERED: INSULIN REGULAR 100 UNIT/ML VIAL IV ONE (10:30)
[2018-06-14] MEDS ORDERED: CALCIUM GLUCONATE 1,000 MG in SODIUM CHLORIDE 0.9% 100 ML IVPB ONE (10:30)
[2018-06-14] MEDS ORDERED: NALOXONE 0.4 MG/ML 1 ML VIAL IV PRN (11:03)
[2018-06-14 11:13] LABS: Glucose,Whole Blood 146 mg/dL (75-99)
[2018-06-14] MEDS ORDERED: PANTOPRAZOLE 40 MG/10 ML VIAL IV ONE (11:15)
[2018-06-14] MEDS: SODIUM CHLORIDE 0.9% 1,000 ML IV SCH (11:21)
[2018-06-14 11:33] LABS: Glucose,Whole Blood 105 mg/dL (75-99)
[2018-06-14 12:28] LABS: Glucose,Whole Blood 34 mg/dL (75-99)
--- NOTE | 2018-06-14 12:44 | P.CNPUL ---
History of Present Illness Consult date: 06/14/18 Reason for consult: dyspnea Chief complaint: Shortness of breath, hyperkalemia History of present illness: This is a 67-year-old the -[place] male with past medical history of end -stage renal disease on hemodialysis 3 times a week on Thursday schedule, hypertension, hyperlipidemia, bipolar, depression, current every day smoker, past drug use. Patient apparently missed his dialysis treatment yesterday, patient apparently had missed his dialysis for 1 week. Patient was supposed to be transferred to the [facility] for dialysis however the arrangements were not able to be completed. She called a local dialysis center and they were unable to fit him in. Patient has been complaining of generalized ache, some mild to moderate dyspnea, he has not taken his blood pressure medicine. Today is having some abdominal discomfort says he had some diarrhea, subjective fever and chills. Chest x-ray showed some mild fluid overload. EKG shows sinus tachycardia, with no acute ischemic changes. Labs showed WBC of 6.1, hemoglobin is 9.7, sodium is 144, potassium was 9.3, chloride is 113, CO2 is 11, B1 was 109, creatinine was 19.1. Patient was hypoglycemic with a glucose of 47, serum phosphorus was 8.5, proBNP was 22, 002 100, amylase and lipase were elevated at 200 and 825 respectively. Denies any nausea or vomiting. Patient is afebrile, his hypertensive, with a blood pressure of 216/93, room air pulse ox is 97%, respirations are even and nonlabored. Patient is having emergent dialysis Review of Systems All systems: negative Constitutional: Denies chills, Denies fever Eyes: denies blurred vision, denies pain Ears, nose, mouth and throat: Denies headache, Denies sore throat Cardiovascular: Denies chest pain, Denies shortness of breath Respiratory: Reports dyspnea, Denies cough Gastrointestinal: Reports abdominal pain, Reports diarrhea, Denies nausea, Denies vomiting Musculoskeletal: Denies myalgias Integumentary: Denies pruritus, Denies rash Neurological: Denies numbness, Denies weakness Psychiatric: Denies anxiety, Denies depression Endocrine: Denies fatigue, Denies weight change Past Medical History Past Medical History: Dialysis, Hyperlipidemia, Hypertension, Renal Disease Additional Past Medical History / Comment(s): "spot on liver", back pain History of Any Multi-Drug Resistant Organisms: None Reported Past Surgical History: Orthopedic Surgery Additional Past Surgical History / Comment(s): 07/01/16 NICO. dialysis graft to right upper arm, jaw surgery (titanium screws) Past Anesthesia/Blood Transfusion Reactions: No Reported Reaction Past Psychological History: Bipolar, Depression Smoking Status: Current every day smoker Past Alcohol Use History: Occasional Past Drug Use History: Cocaine, Heroin, Marijuana - Past Family History Father Additional Family Medical History / Comment(s): Father was an alcoholic and at 44. Mother Family Medical History: No Reported History Additional Family Medical History / Comment(s): Mother is healthy. Brother(s) Family Medical History: Diabetes Mellitus Medications and Allergies Home Medications Medication Instructions Recorded Confirmed Type amLODIPine [Norvasc] 5 mg PO DAILY tab 04/16/18 06/14/18 Rx HYDROcodone/APAP 7.5-325MG [[place] 1 tab PO Q6H PRN 05/11/18 06/14/18 History 7.5-325] Allergies Allergy/AdvReac Type Severity Reaction Status Date / Time aspirin AdvReac Nausea & Verified 06/14/18 11:04 Vomiting Physical Exam Vitals: Vital Signs Temp Pulse Resp BP Pulse Ox 06/14/18 11:42 97.7 F 98 22 199/102 97 06/14/18 11:30 100 22 199/103 06/14/18 10:30 96 205/103 06/14/18 10:00 101 H 210/112 06/14/18 09:30 216/93 06/14/18 09:18 96 24 216/93 100 06/14/18 09:00 97 222/108 100 06/14/18 08:30 101 H 201/92 97 06/14/18 08:04 102 H 06/14/18 08:00 105 H 206/104 100 06/14/18 07:56 105 H 06/14/18 07:51 24 06/14/18 07:43 98.0 F 106 H 24 206/104 97 Intake and Output 06/13/18 06/14/18 06/14/18 22:59 06:59 14:59 Other: Weight 66.678 kg GENERAL EXAM: Alert, pleasant, 67-year-old -[place] male, comfortable in no apparent distress. HEAD: Normocephalic/atraumatic. EYES: Normal reaction of pupils, equal size. Conjunctiva pink, sclera white. NOSE: Clear with pink turbinates. THROAT: No erythema or exudates. NECK: No masses, no JVD, no thyroid enlargement, no adenopathy. CHEST: No chest wall deformity. Symmetrical expansion. Left upper chest hemodialysis catheter in place LUNGS: Equal air entry with no crackles, wheeze, rhonchi or dullness. CVS: Regular rate and rhythm, normal S1 and S2, no gallops, no murmurs, no rubs ABDOMEN: Soft, nontender. No hepatosplenomegaly, normal bowel sounds, no guarding or rigidity. EXTREMITIES: No clubbing, no edema, no cyanosis, 2+ pulses and upper and lower extremities. MUSCULOSKELETAL: Muscle strength and tone normal. SPINE: No scoliosis or deformity SKIN: No rashes CENTRAL NERVOUS SYSTEM: Alert and oriented -3. No focal deficits, tone is normal in all 4 extremities. PSYCHIATRIC: Alert and oriented -3. Appropriate affect. Intact judgment and insight. Results - Laboratory Findings CBC and BMP: 06/14/18 09:04 06/14/18 09:04 PT/INR, D-dimer PT 10.6 sec (9.0-12.0) 06/14/18 09:04 INR 1.0 (<1.2) 06/14/18 09:04 Abnormal lab findings: Abnormal Labs 06/14/18 06/14/18 06/14/18 09:04 09:04 10:15 RBC 3.13 L Hgb 9.7 L Hct 30.9 L Lymphocytes # 0.9 L Potassium 9.3 H* Chloride 113 H Carbon Dioxide 11 L BUN 102 H* Creatinine 19.11 H* Glucose 47 L* POC Glucose (mg/dL) 44 L Phosphorus 8.5 H Alkaline Phosphatase 167 H Total Protein 8.4 H Amylase 200 H Lipase 825 H 06/14/18 06/14/18 11:12 11:32 RBC Hgb Hct Lymphocytes # Potassium Chloride Carbon Dioxide BUN Creatinine Glucose POC Glucose (mg/dL) 146 H 105 H Phosphorus Alkaline Phosphatase Total Protein Amylase Lipase - Diagnostic Findings Chest x-ray: report reviewed, image reviewed Additional studies: EKG reviewed Assessment and Plan Plan: Assessment #1. Dyspnea related to mild fluid overload, he missed one week's worth of dialysis #2. Abdominal pain, diarrhea #3. Elevated amylase and lipase #4. Hypoglycemia #5. End-stage renal disease on hemodialysis on Thursday schedule #6. Hyperkalemia related to missed dialysis #7. Hypertensive emergency #8. Hypertension, hyperlipidemia #9. Bipolar, depression #10. Chronic and ongoing tobacco dependence, [id number] smoking history #11. Past history of drug abuse #12. Medical noncompliance Plan: Is getting emergent dialysis, he is in mild dyspnea no acute distress. On room air. Today's chest x-ray shows a mild fluid overload. Obtain ultrasound of the gallbladder for abdominal discomfort and elevated lipase and amylase. Repeat his electrolytes today after dialysis. Patient is hypoglycemic, will give the patient on amp of D50, this is likely related to treatment of the hyperkalemia with regular insulin. We'll continue to closely monitor, continue monitoring rhythm and rate. Electrolytes, renal profile. Check stool for C. diff. Afebrile. I performed a history & physical examination of the patient and discussed their management with my nurse practitioner, Jessica Montesinos. I reviewed the nurse practitioner's note and agree with the documented findings and plan of care. Lung sounds are diminished. The findings and the impression was discussed with the patient. I attest to the documentation by the nurse practitioner. Time with Patient: Greater than 30
[2018-06-14 12:57] VITALS: BMI 22.1
[2018-06-14 13:12] LABS: Glucose,Whole Blood 123 mg/dL (75-99)
--- NOTE | 2018-06-14 13:19 | P.NPCON ---
History of Present Illness - Reason for Consult end stage renal disease - Chief Complaint missed hemodialysis treatment - History of Present Illness Patient of Dr. Mccurdy on hemodialysis for the last 2 years TTS schedule. He missed 2 dialysis treatments as he was in the interim of moving to [facility]. And he moved back again but could not find his chair time back at dialysis unit. His potassium was 9 and he was moved to ICU and started on emergent dialysis. He still makes urine. Review of Systems Constitutional: Reports as per HPI Past Medical History Past Medical History: Dialysis, Hyperlipidemia, Hypertension, Renal Disease Additional Past Medical History / Comment(s): "spot on liver", back pain History of Any Multi-Drug Resistant Organisms: None Reported Past Surgical History: Orthopedic Surgery Additional Past Surgical History / Comment(s): 07/01/16 NICO. dialysis graft to right upper arm, jaw surgery (titanium screws) Past Anesthesia/Blood Transfusion Reactions: No Reported Reaction Past Psychological History: Bipolar, Depression Smoking Status: Current every day smoker Past Alcohol Use History: Occasional Past Drug Use History: Cocaine, Heroin, Marijuana - Past Family History Father Additional Family Medical History / Comment(s): Father was an alcoholic and at 44. Mother Family Medical History: No Reported History Additional Family Medical History / Comment(s): Mother is healthy. Brother(s) Family Medical History: Diabetes Mellitus Medications and Allergies Home Medications Medication Instructions Recorded Confirmed Type HYDROcodone/APAP 7.5-325MG [[place] 1 tab PO Q6H PRN 05/11/18 06/14/18 History 7.5-325] amLODIPine [Norvasc] 10 mg PO DAILY 06/14/18 06/14/18 History Allergies Allergy/AdvReac Type Severity Reaction Status Date / Time aspirin AdvReac Nausea & Verified 06/14/18 13:01 Vomiting Physical Exam Vitals: Vital Signs Temp Pulse Resp BP Pulse Ox 06/14/18 11:42 97.7 F 98 22 199/102 97 06/14/18 11:30 100 22 199/103 06/14/18 10:30 96 205/103 06/14/18 10:00 101 H 210/112 06/14/18 09:30 216/93 06/14/18 09:18 96 24 216/93 100 06/14/18 09:00 97 222/108 100 06/14/18 08:30 101 H 201/92 97 06/14/18 08:04 102 H 06/14/18 08:00 105 H 206/104 100 06/14/18 07:56 105 H 06/14/18 07:51 24 06/14/18 07:43 98.0 F 106 H 24 206/104 97 Intake and Output 06/13/18 06/14/18 06/14/18 22:59 06:59 14:59 Other: Weight 64.2 kg No acute distress Right jugular permacath S1-S2 heard Lungs clear No edema Results - Lab Results Most recent lab results Calcium 9.7 mg/dL (8.4-10.2) 06/14/18 09:04 Phosphorus 8.5 mg/dL (2.5-4.5) H 06/14/18 09:04 Magnesium 2.1 mg/dL (1.6-2.3) 06/14/18 09:04 06/14/18 09:04 06/14/18 09:04 Assessment and Plan Assessment: #1 missed hemodialysis treatments with hyperkalemia. #2 ESRD TTS wire left jugular permacath #3 hypertension with ESRD #4 ESRD with metabolic bone disease Plan: #1 emergent hemodialysis today with 2K bath and 1 hour 1K bath #2 ESRD medications including Lasix #3 repeat labs tomorrow and plan hemodialysis on Thursday.
[2018-06-14] MEDS: HYDROmorphone 0.5 MG/0.5 ML SYRINGE IVP PRN ×2 (14:04→20:09)
[2018-06-14] MEDS: SEVELAMER 800 MG TAB PO SCH (16:42)
[2018-06-14] MEDS: HEPARIN SODIUM,PORCINE 5,000 UNIT/ML 1 ML VIAL SQ SCH ×2 (16:42→23:56)
[2018-06-14] MEDS: FUROSEMIDE 80 MG TAB PO SCH (16:43)
[2018-06-14] MEDS: HYDROcodone/APAP 7.5-325MG 1 EACH TAB PO PRN ×2 (16:43→23:55)
[2018-06-14 16:59] LABS: Glucose,Whole Blood 54 mg/dL (75-99)
[2018-06-14] MEDS: hydrALAZINE HCL 20 MG/ML 1 ML VIAL IVP PRN ×2 (17:41→23:58)
[2018-06-14 17:47] LABS: Glucose,Whole Blood 202 mg/dL (75-99)
[2018-06-14 19:34] LABS: Albumin 4.1 g/dL (3.5-5.0); Calcium 9.1 mg/dL (8.4-10.2); Potassium 4.6 mmol/L (3.5-5.1); Total Bilirubin 0.6 mg/dL (0.2-1.3); Total Protein 7.7 g/dL (6.3-8.2)
[2018-06-14] MEDS: ATENOLOL 50 MG TAB PO SCH (20:09)
--- NOTE | 2018-06-14 20:53 | HP ---
HISTORY AND PHYSICAL CHIEF COMPLAINT: This 67-year-old male came to hospital with shortness of breath, severe renal failure, creatinine near 20 after missing 3-4 dialysis sessions at home. He became short of breath, fluid overloaded. He states he was supposed to get dialysis at the [facility] in [place]. They canceled it and he cannot find a bed up here to get dialysis so he had to be admitted. The EKG on admission shows some sinus tachycardia. His potassium was 7, which was [place] [address]. Amylase and lipase were 200 and 852. He is complaining of diffuse abdominal pain. He wants food. Discussed with him not eating today until his numbers are better. Fourteen-point review of systems is negative except for mentioned in HPI. PAST MEDICAL HISTORY: Dialysis, dyslipidemia, hypertension, renal disease, lumbar disc disease, polysubstance abuse. He has had jaw surgery before. He had a NICO. He has bipolar depression, current everyday smoker, cocaine, heroin and marijuana in the past. PAST FAMILY HISTORY: Father alcoholic, at age 44. Mother healthy. Brother diabetes mellitus. HOME MEDICATIONS: Norvasc 5 mg daily, [place] 7.5 q.6 hours. ALLERGIES: ASPIRIN. PHYSICAL EXAMINATION: Pulse low 100s, respiratory rate 22-24, blood pressure is 190s-200s/90s-100, temp 98. CARDIOVASCULAR; Tachycardic S1, S2. LUNGS: Show mild wheeze. 2+ pedal edema. GI is soft, nontender. PSYCH: Fair mood and affect. ENDOCRINE: He appears to be a little bit bloated. He is not having difficulty breathing. LABS: Are reviewed. BUN of 102, creatinine 19.1. Potassium is 9.3, which has been reversed. Platelet count is 47. ASSESSMENT: 1. End-stage renal disease. 2. Pancreatitis. 3. Hypocalcemia. 4. Severe hyperkalemia. 5. Hypertensive emergency. 6. Bipolar depression. 7. Nicotine addiction. 8. History of drug abuse. 9. Medical noncompliance. 10.Shortness of breath due to fluid overload. 11.Abdominal pain, diarrhea secondary to pancreatitis. Continue current treatments. Follow up in next 24 to 48 hours. Clear liquid diet for now. 45 minutes. MMODL / IJN: [id number] /
[2018-06-14 21:47] LABS: Glucose,Whole Blood 92 mg/dL (75-99)
[2018-06-15 01:49] LABS: Glucose,Whole Blood 150 mg/dL (75-99)
[2018-06-15] MEDS: HYDROmorphone 0.5 MG/0.5 ML SYRINGE IVP PRN ×4 (03:12→21:40)
[2018-06-15 03:52] LABS: Hemoglobin A1C 4.8 % (4.0-6.0)
[2018-06-15 04:31] LABS: Basophils # (A) 0.1 k/uL (0-0.2); Basophils % (A) 1 %; Eosinophils # (A) 0.3 k/uL (0-0.7); Eosinophils % (A) 7 %; HCT 28.4 % (39.0-53.0); HGB 9.3 gm/dL (13.0-17.5); Lymphocytes # (A) 1.7 k/uL (1.0-4.8); Lymphocytes % (A) 35 %; MCH 31.2 pg (25.0-35.0); MCHC 32.6 g/dL (31.0-37.0); MCV 95.5 fL (80.0-100.0); Mean Platelet Volume 7.9; Monocytes # (A) 0.3 k/uL (0-1.0); Monocytes % (A) 6 %; Neutrophils # (A) 2.5 k/uL (1.3-7.7); Neutrophils % (A) 50 %; Platelet Count 276 k/uL (150-450); RBC 2.97 m/uL (4.30-5.90); RDW 14.8 % (11.5-15.5)
[2018-06-15 05:11] LABS: Albumin 3.9 g/dL (3.5-5.0); Calcium 8.7 mg/dL (8.4-10.2); Magnesium 1.7 mg/dL (1.6-2.3); Phosphorus 7.2 mg/dL (2.5-4.5); Potassium 5.1 mmol/L (3.5-5.1); Total Bilirubin 0.5 mg/dL (0.2-1.3); Total Protein 7.2 g/dL (6.3-8.2)
[2018-06-15 06:58] LABS: Glucose,Whole Blood 113 mg/dL (75-99)
[2018-06-15] MEDS: SEVELAMER 800 MG TAB PO SCH ×3 (07:08→17:00)
[2018-06-15] MEDS: HYDROcodone/APAP 7.5-325MG 1 EACH TAB PO PRN ×2 (07:08→21:14)
--- NOTE | 2018-06-15 09:21 | P.PN ---
Subjective Progress Note Date: 06/15/18 Principal diagnosis: Shortness of breath secondary to fluid volume overload following missed dialysis treatments This is a 67-year-old the -[place]ong[place] male with past medical history of end -stage renal disease on hemodialysis 3 times a week on Thursday schedule, hypertension, hyperlipidemia, bipolar, depression, current every day smoker, past drug use. Patient apparently missed his dialysis treatment yesterday, patient apparently had missed his dialysis for 1 week. Patient was supposed to be transferred to the [facility] for dialysis however the arrangements were not able to be completed. She called a local dialysis center and they were unable to fit him in. Patient has been complaining of generalized ache, some mild to moderate dyspnea, he has not taken his blood pressure medicine. Today is having some abdominal discomfort says he had some diarrhea, subjective fever and chills. Chest x-ray showed some mild fluid overload. EKG shows sinus tachycardia, with no acute ischemic changes. Labs showed WBC of 6.1, hemoglobin is 9.7, sodium is 144, potassium was 9.3, chloride is 113, CO2 is 11, B1 was 109, creatinine was 19.1. Patient was hypoglycemic with a glucose of 47, serum phosphorus was 8.5, proBNP was 22, 002 100, amylase and lipase were elevated at 200 and 825 respectively. Denies any nausea or vomiting. Patient is afebrile, his hypertensive, with a blood pressure of 216/93, room air pulse ox is 97%, respirations are even and nonlabored. Patient is having emergent dialysis The patient is seen today 06/15/2018 in follow-up in the intensive care unit. He is awake and alert in no acute distress. He denies any worsening shortness of breath, cough or congestion. He did undergo hemodialysis yesterday with 3 L of fluid removed. He is maintaining good O2 saturations in the upper 90s on room air. He is sitting up in bed having progress. Alert and oriented 3. He' s been afebrile. Somewhat hypertensive. We'll resume his Norvasc from home. He has a 0.9 normal saline at 20 mL per hour. White count 5.0. Hemoglobin 9.3. BUN 46. Creatinine 9.12. Objective - Vital Signs Vital signs: Vital Signs Temp 98.2 F 06/15/18 04:00 Pulse 66 06/15/18 06:00 Resp 15 06/15/18 06:00 BP 148/96 06/15/18 06:00 Pulse Ox 99 06/15/18 06:00 Intake & Output 06/14/18 06/15/18 06/15/18 18:59 06:59 18:59 Intake Total 140 240 Output Total 100 150 Balance 40 90 Weight 64.2 kg 67.6 kg Intake: IV 140 240 Sodium Chloride 0.9% 1, 140 240 000 ml @ 20 mls/hr IV . Q24H [facility] Rx#:[id number] Output: Urine 100 150 Other: Voiding Method Urinal Urinal # Voids 1 - Exam GENERAL EXAM: Alert, active, comfortable in no apparent distress. HEAD: Normocephalic. EYES: Normal reaction of pupils, equal size. NOSE: Clear with pink turbinates. THROAT: No erythema or exudates. NECK: No masses, no JVD. CHEST: No chest wall deformity. Left chest hemodialysis catheter. LUNGS: Equal air entry with us in the posterior bases. CVS: S1 and S2 normal with no audible murmur, regular rhythm. ABDOMEN: No hepatosplenomegaly, normal bowel sounds, no guarding or rigidity. SPINE: No scoliosis or deformity SKIN: No rashes CENTRAL NERVOUS SYSTEM: No focal deficits, tone is normal in all 4 extremities. EXTREMITIES: There is no peripheral edema. No clubbing, no cyanosis. Peripheral pulses are intact. - Labs CBC & Chem 7: 06/15/18 04:15 06/15/18 04:15 Labs: Abnormal Lab Results - Last 24 Hours (Table) 06/14/18 06/14/18 06/14/18 Range/Units 09:04 09:04 10:15 RBC 3.13 L (4.30-5.90) m/uL Hgb 9.7 L (13.0-17.5) gm/dL Hct 30.9 L (39.0-53.0) % Lymphocytes # 0.9 L (1.0-4.8) k/uL Sodium (137-145) mmol/L Potassium 9.3 H* (3.5-5.1) mmol/L Chloride 113 H (98-107) mmol/L Carbon Dioxide 11 L (22-30) mmol/L BUN 102 H* (9-20) mg/dL Creatinine 19.11 H* (0.66-1.25) mg/dL Glucose 47 L* (74-99) mg/dL POC Glucose (mg/dL) 44 L (75-99) mg/dL Phosphorus 8.5 H (2.5-4.5) mg/dL Alkaline Phosphatase 167 H (38-126) U/L Total Protein 8.4 H (6.3-8.2) g/dL Amylase 200 H (30-110) U/L Lipase 825 H (23-300) U/L 06/14/18 06/14/18 06/14/18 Range/Units 11:12 11:32 12:23 RBC (4.30-5.90) m/uL Hgb (13.0-17.5) gm/dL Hct (39.0-53.0) % Lymphocytes # (1.0-4.8) k/uL Sodium (137-145) mmol/L Potassium (3.5-5.1) mmol/L Chloride (98-107) mmol/L Carbon Dioxide (22-30) mmol/L BUN (9-20) mg/dL Creatinine (0.66-1.25) mg/dL Glucose (74-99) mg/dL POC Glucose (mg/dL) 146 H 105 H 34 L (75-99) mg/dL Phosphorus (2.5-4.5) mg/dL Alkaline Phosphatase (38-126) U/L Total Protein (6.3-8.2) g/dL Amylase (30-110) U/L Lipase (23-300) U/L 06/14/18 06/14/18 06/14/18 Range/Units 13:11 16:57 17:45 RBC (4.30-5.90) m/uL Hgb (13.0-17.5) gm/dL Hct (39.0-53.0) % Lymphocytes # (1.0-4.8) k/uL Sodium (137-145) mmol/L Potassium (3.5-5.1) mmol/L Chloride (98-107) mmol/L Carbon Dioxide (22-30) mmol/L BUN (9-20) mg/dL Creatinine (0.66-1.25) mg/dL Glucose (74-99) mg/dL POC Glucose (mg/dL) 123 H 54 L 202 H (75-99) mg/dL Phosphorus (2.5-4.5) mg/dL Alkaline Phosphatase (38-126) U/L Total Protein (6.3-8.2) g/dL Amylase (30-110) U/L Lipase (23-300) U/L 06/14/18 06/15/18 06/15/18 Range/Units 18:49 01:48 04:15 RBC 2.97 L (4.30-5.90) m/uL Hgb 9.3 L (13.0-17.5) gm/dL Hct 28.4 L (39.0-53.0) % Lymphocytes # (1.0-4.8) k/uL Sodium 136 L (137-145) mmol/L Potassium (3.5-5.1) mmol/L Chloride (98-107) mmol/L Carbon Dioxide (22-30) mmol/L BUN 38 H (9-20) mg/dL Creatinine 8.29 H* (0.66-1.25) mg/dL Glucose 155 H (74-99) mg/dL POC Glucose (mg/dL) 150 H (75-99) mg/dL Phosphorus (2.5-4.5) mg/dL Alkaline Phosphatase 135 H (38-126) U/L Total Protein (6.3-8.2) g/dL Amylase 156 H (30-110) U/L Lipase 438 H (23-300) U/L 06/15/18 06/15/18 Range/Units 04:15 06:57 RBC (4.30-5.90) m/uL Hgb (13.0-17.5) gm/dL Hct (39.0-53.0) % Lymphocytes # (1.0-4.8) k/uL Sodium (137-145) mmol/L Potassium (3.5-5.1) mmol/L Chloride (98-107) mmol/L Carbon Dioxide (22-30) mmol/L BUN 46 H (9-20) mg/dL Creatinine 9.12 H* (0.66-1.25) mg/dL Glucose 112 H (74-99) mg/dL POC Glucose (mg/dL) 113 H (75-99) mg/dL Phosphorus 7.2 H (2.5-4.5) mg/dL Alkaline Phosphatase 169 H (38-126) U/L Total Protein (6.3-8.2) g/dL Amylase (30-110) U/L Lipase (23-300) U/L Assessment and Plan Assessment: Assessment #1. Dyspnea related to mild fluid overload, he missed one week's worth of dialysis, status post dialysis with 3 L removed, improved and on room air. #2. Abdominal pain, diarrhea #3. Elevated amylase and lipase, ultrasound pending. #4. Hypoglycemia #5. End-stage renal disease on hemodialysis on Thursday schedule #6. Hyperkalemia related to missed dialysis #7. Hypertensive emergency #8. Hypertension, hyperlipidemia #9. Bipolar, depression #10. Chronic and ongoing tobacco dependence, [id number] smoking history #11. Past history of drug abuse #12. Medical noncompliance Plan: The patient was seen and evaluated by Dr. Malone. He is stable from the pulmonary and critical care standpoint. We'll transfer him out of the intensive care unit today. Dialysis per nephrology. Ultrasound of the gallbladder is pending. We will continue to follow make further recommendations based on his clinical status. I, the cosigning physician, performed a history & physical examination of the patient. Lungs sounds with faint crackles in the posterior bases. Maintaining good O2 saturations in the 90s on room air. I discussed the assessment and plan of care with my nurse practitioner, Kimmie Elliott. I attest to the above note as dictated by her.
[2018-06-15] MEDS: amLODIPine 10 MG TAB PO SCH (09:25)
[2018-06-15] MEDS: ATENOLOL 50 MG TAB PO SCH ×2 (09:25→22:32)
[2018-06-15] MEDS: FUROSEMIDE 80 MG TAB PO SCH ×2 (09:25→15:37)
[2018-06-15] MEDS: FOLIC ACID-VIT B COMPLEX-VIT C 1 CAP PO SCH (09:25)
[2018-06-15] MEDS: HEPARIN SODIUM,PORCINE 5,000 UNIT/ML 1 ML VIAL SQ SCH ×2 (09:25→15:37)
[2018-06-15] MEDS: PANTOPRAZOLE 40 MG/10 ML VIAL IV SCH (09:26)
[2018-06-15] MEDS ORDERED: SODIUM CHLORIDE 0.65% NASAL SPRAY 44 ML BTL NASAL PRN (09:33)
--- NOTE | 2018-06-15 09:52 | P.PN ---
Subjective Progress Note Date: 06/15/18 Seen and examined for the follow-up of ESRD. Feels better today no nausea vomiting diarrhea no shortness of breath. Had full dialysis yesterday. Objective - Vital Signs Vital signs: Vital Signs Temp 98.2 F 06/15/18 04:00 Pulse 70 06/15/18 09:00 Resp 13 06/15/18 09:00 BP 152/93 06/15/18 09:00 Pulse Ox 96 06/15/18 09:00 Intake & Output 06/14/18 06/15/18 06/15/18 18:59 06:59 18:59 Intake Total 140 240 300 Output Total 100 150 0 Balance 40 90 300 Weight 64.2 kg 67.6 kg Intake: IV 140 240 60 Sodium Chloride 0.9% 1, 140 240 60 000 ml @ 20 mls/hr IV . Q24H [facility] Rx#:[id number] Oral 240 Output: Urine 100 150 0 Other: Voiding Method Urinal Urinal Urinal # Voids 1 - Exam No acute distress S1-S2 heard Lungs clear No edema Left jugular permacath - Labs CBC & Chem 7: 06/15/18 04:15 06/15/18 04:15 Labs: Abnormal Lab Results - Last 24 Hours (Table) 06/14/18 06/14/18 06/14/18 Range/Units 09:04 10:15 11:12 RBC (4.30-5.90) m/uL Hgb (13.0-17.5) gm/dL Hct (39.0-53.0) % Sodium (137-145) mmol/L Potassium 9.3 H* (3.5-5.1) mmol/L Chloride 113 H (98-107) mmol/L Carbon Dioxide 11 L (22-30) mmol/L BUN 102 H* (9-20) mg/dL Creatinine 19.11 H* (0.66-1.25) mg/dL Glucose 47 L* (74-99) mg/dL POC Glucose (mg/dL) 44 L 146 H (75-99) mg/dL Phosphorus 8.5 H (2.5-4.5) mg/dL Alkaline Phosphatase 167 H (38-126) U/L Total Protein 8.4 H (6.3-8.2) g/dL Amylase 200 H (30-110) U/L Lipase 825 H (23-300) U/L 06/14/18 06/14/18 06/14/18 Range/Units 11:32 12:23 13:11 RBC (4.30-5.90) m/uL Hgb (13.0-17.5) gm/dL Hct (39.0-53.0) % Sodium (137-145) mmol/L Potassium (3.5-5.1) mmol/L Chloride (98-107) mmol/L Carbon Dioxide (22-30) mmol/L BUN (9-20) mg/dL Creatinine (0.66-1.25) mg/dL Glucose (74-99) mg/dL POC Glucose (mg/dL) 105 H 34 L 123 H (75-99) mg/dL Phosphorus (2.5-4.5) mg/dL Alkaline Phosphatase (38-126) U/L Total Protein (6.3-8.2) g/dL Amylase (30-110) U/L Lipase (23-300) U/L 06/14/18 06/14/18 06/14/18 Range/Units 16:57 17:45 18:49 RBC (4.30-5.90) m/uL Hgb (13.0-17.5) gm/dL Hct (39.0-53.0) % Sodium 136 L (137-145) mmol/L Potassium (3.5-5.1) mmol/L Chloride (98-107) mmol/L Carbon Dioxide (22-30) mmol/L BUN 38 H (9-20) mg/dL Creatinine 8.29 H* (0.66-1.25) mg/dL Glucose 155 H (74-99) mg/dL POC Glucose (mg/dL) 54 L 202 H (75-99) mg/dL Phosphorus (2.5-4.5) mg/dL Alkaline Phosphatase 135 H (38-126) U/L Total Protein (6.3-8.2) g/dL Amylase 156 H (30-110) U/L Lipase 438 H (23-300) U/L 06/15/18 06/15/18 06/15/18 Range/Units 01:48 04:15 04:15 RBC 2.97 L (4.30-5.90) m/uL Hgb 9.3 L (13.0-17.5) gm/dL Hct 28.4 L (39.0-53.0) % Sodium (137-145) mmol/L Potassium (3.5-5.1) mmol/L Chloride (98-107) mmol/L Carbon Dioxide (22-30) mmol/L BUN 46 H (9-20) mg/dL Creatinine 9.12 H* (0.66-1.25) mg/dL Glucose 112 H (74-99) mg/dL POC Glucose (mg/dL) 150 H (75-99) mg/dL Phosphorus 7.2 H (2.5-4.5) mg/dL Alkaline Phosphatase 169 H (38-126) U/L Total Protein (6.3-8.2) g/dL Amylase (30-110) U/L Lipase (23-300) U/L 06/15/18 Range/Units 06:57 RBC (4.30-5.90) m/uL Hgb (13.0-17.5) gm/dL Hct (39.0-53.0) % Sodium (137-145) mmol/L Potassium (3.5-5.1) mmol/L Chloride (98-107) mmol/L Carbon Dioxide (22-30) mmol/L BUN (9-20) mg/dL Creatinine (0.66-1.25) mg/dL Glucose (74-99) mg/dL POC Glucose (mg/dL) 113 H (75-99) mg/dL Phosphorus (2.5-4.5) mg/dL Alkaline Phosphatase (38-126) U/L Total Protein (6.3-8.2) g/dL Amylase (30-110) U/L Lipase (23-300) U/L Assessment and Plan Assessment: #1 missed hemodialysis treatments with hyperkalemia. Last hemodialysis was on May #2 ESRD TTS wire left jugular permacath #3 hypertension with ESRD #4 ESRD with metabolic bone disease Plan: #1 emergent hemodialysis today with 2K bath and 1 hour 1K bath yesterday and full treatment again tomorrow with 2K bath. #2 ESRD medications including Lasix #3 can be discharged after full dialysis treatment tomorrow to be followed up in the dialysis unit on .
--- NOTE | 2018-06-15 10:30 | US ---
EXAMINATION TYPE: US gallbladder DATE OF EXAM: 06/15/2018 COMPARISON: NONE CLINICAL HISTORY: 67-year-old male abdominal pain. Abdominal pain, ICU patient, SOB TECHNIQUE: Multiple sonographic images of the right upper quadrant are obtained. FINDINGS: EXAM MEASUREMENTS: Liver Length: 15.5 cm Gallbladder Wall: 0.2 cm CBD: 5.6 mm Right Kidney: 6.0 x 2.7 x 3.0 cm Pancreas: limited views show borderline prominent pancreatic duct at 2.7 mm. Liver: limited views show no focal lesion. Slight increased echogenicity. Gallbladder: slightly contracted with no obvious abnormality noted, patient ate 90mins prior to exam Evidence for sonographic Rodriguez's sign: no CBD: Upper limits of normal. Right Kidney: small in size, patient is on dialysis . No hydronephrosis. IMPRESSION: 1. Slightly echogenic and heterogeneous appearance to the liver may be on a technical basis. Correlat e for possible underlying nonspecific hepatocellular disease. 2. No cholelithiasis or evidence for acute cholecystitis. 3. Right kidney shows chronic medical renal disease.
[2018-06-15 10:44] LABS: Glucose,Whole Blood 107 mg/dL (75-99)
[2018-06-15] MEDS: SODIUM CHLORIDE 0.9% 1,000 ML IV SCH (12:11)
[2018-06-15 16:54] LABS: Glucose,Whole Blood 101 mg/dL (75-99)
[2018-06-15 20:41] LABS: Glucose,Whole Blood 95 mg/dL (75-99)
[2018-06-16] MEDS: HEPARIN SODIUM,PORCINE 5,000 UNIT/ML 1 ML VIAL SQ SCH ×3 (00:55→15:59)
[2018-06-16] MEDS: HYDROmorphone 0.5 MG/0.5 ML SYRINGE IVP PRN ×3 (03:52→16:05)
[2018-06-16 04:38] LABS: Basophils % (A) 1 %; Eosinophils # (A) 0.4 k/uL (0-0.7); Eosinophils % (A) 8 %; HCT 27.3 % (39.0-53.0); HGB 8.8 gm/dL (13.0-17.5); Lymphocytes # (A) 1.9 k/uL (1.0-4.8); Lymphocytes % (A) 41 %; MCH 31.4 pg (25.0-35.0); MCHC 32.3 g/dL (31.0-37.0); MCV 97.2 fL (80.0-100.0); Mean Platelet Volume 7.7; Monocytes # (A) 0.3 k/uL (0-1.0); Monocytes % (A) 6 %; Neutrophils % (A) 42 %; Platelet Count 221 k/uL (150-450); RBC 2.81 m/uL (4.30-5.90); RDW 14.7 % (11.5-15.5); WBC 4.7 k/uL (3.8-10.6)
[2018-06-16 05:46] LABS: Albumin 3.5 g/dL (3.5-5.0); Calcium 8.6 mg/dL (8.4-10.2); Magnesium 1.9 mg/dL (1.6-2.3); Phosphorus 6.5 mg/dL (2.5-4.5); Potassium 5.7 mmol/L (3.5-5.1); Total Bilirubin 0.3 mg/dL (0.2-1.3); Total Protein 6.6 g/dL (6.3-8.2)
[2018-06-16 06:55] LABS: Glucose,Whole Blood 89 mg/dL (75-99)
[2018-06-16] MEDS: HYDROcodone/APAP 7.5-325MG 1 EACH TAB PO PRN ×3 (07:40→13:58)
[2018-06-16] MEDS: SEVELAMER 800 MG TAB PO SCH ×3 (08:00→17:02)
--- NOTE | 2018-06-16 08:54 | P.PN ---
Subjective Progress Note Date: 06/16/18 Principal diagnosis: Shortness of breath secondary to fluid volume overload following missed dialysis treatments This is a 67-year-old the -[place] male with past medical history of end -stage renal disease on hemodialysis 3 times a week on Thursday schedule, hypertension, hyperlipidemia, bipolar, depression, current every day smoker, past drug use. Patient apparently missed his dialysis treatment yesterday, patient apparently had missed his dialysis for 1 week. Patient was supposed to be transferred to the [facility] for dialysis however the arrangements were not able to be completed. She called a local dialysis center and they were unable to fit him in. Patient has been complaining of generalized ache, some mild to moderate dyspnea, he has not taken his blood pressure medicine. Today is having some abdominal discomfort says he had some diarrhea, subjective fever and chills. Chest x-ray showed some mild fluid overload. EKG shows sinus tachycardia, with no acute ischemic changes. Labs showed WBC of 6.1, hemoglobin is 9.7, sodium is 144, potassium was 9.3, chloride is 113, CO2 is 11, B1 was 109, creatinine was 19.1. Patient was hypoglycemic with a glucose of 47, serum phosphorus was 8.5, proBNP was 22, 002 100, amylase and lipase were elevated at 200 and 825 respectively. Denies any nausea or vomiting. Patient is afebrile, his hypertensive, with a blood pressure of 216/93, room air pulse ox is 97%, respirations are even and nonlabored. Patient is having emergent dialysis The patient is seen today 06/15/2018 in follow-up in the intensive care unit. He is awake and alert in no acute distress. He denies any worsening shortness of breath, cough or congestion. He did undergo hemodialysis yesterday with 3 L of fluid removed. He is maintaining good O2 saturations in the upper 90s on room air. He is sitting up in bed having progress. Alert and oriented 3. He' s been afebrile. Somewhat hypertensive. We'll resume his Norvasc from home. He has a 0.9 normal saline at 20 mL per hour. White count 5.0. Hemoglobin 9.3. BUN 46. Creatinine 9.12. On 06/16/2018 patient seen in follow-up in intensive care unit, is resting comfortably in bed, in no distress, on room air. Pulse ox is 95%, patient is afebrile, his blood pressure is 158/90, sinus rhythm on a monitor. No shortness of breath or chest pain. Today's labs have been reviewed and showed WBC of 4.7, hemoglobin is 8.8, sodium is 137, potassium is 5.7 chloride is 104, CO2 is 21 BUN is 54 and creatinine is 10.9. Patient will have hemodialysis treatment again today. No nausea, no vomiting, no diarrhea, no abdominal pain. Ultrasound of the gallbladder was completed, and showed slightly echogenic and heterogeneous appearance of the liver likely related to technical basis, no cholelithiasis or evidence for acute cholecystitis. No acute events overnight. Objective - Vital Signs Vital signs: Vital Signs Temp 98.7 F 06/16/18 08:11 Pulse 64 06/16/18 08:11 Resp 18 06/16/18 08:11 BP 158/90 06/16/18 08:11 Pulse Ox 95 06/16/18 08:11 Intake & Output 06/15/18 06/16/18 06/16/18 18:59 06:59 18:59 Intake Total 1100 840 280 Output Total 200 100 200 Balance 900 740 80 Intake: IV 260 240 40 Sodium Chloride 0.9% 1, 260 240 40 000 ml @ 20 mls/hr IV . Q24H [facility] Rx#:[id number] Oral 840 600 240 Output: Urine 200 100 200 Other: Voiding Method Urinal Urinal # Voids 0 # Bowel Movements 1 - Exam GENERAL EXAM: Alert, pleasant, 67-year-old -Ira[place] male, comfortable in no apparent distress. HEAD: Normocephalic/atraumatic. EYES: Normal reaction of pupils, equal size. Conjunctiva pink, sclera white. NOSE: Clear with pink turbinates. THROAT: No erythema or exudates. NECK: No masses, no JVD, no thyroid enlargement, no adenopathy. CHEST: No chest wall deformity. Symmetrical expansion. Left upper chest hemodialysis catheter in place LUNGS: Equal air entry with no crackles, wheeze, rhonchi or dullness. CVS: Regular rate and rhythm, normal S1 and S2, no gallops, no murmurs, no rubs ABDOMEN: Soft, nontender. No hepatosplenomegaly, normal bowel sounds, no guarding or rigidity. EXTREMITIES: No clubbing, no edema, no cyanosis, 2+ pulses and upper and lower extremities. MUSCULOSKELETAL: Muscle strength and tone normal. SPINE: No scoliosis or deformity SKIN: No rashes CENTRAL NERVOUS SYSTEM: Alert and oriented -3. No focal deficits, tone is normal in all 4 extremities. PSYCHIATRIC: Alert and oriented -3. Appropriate affect. Intact judgment and insight. - Labs CBC & Chem 7: 06/16/18 04:28 06/16/18 04:28 Labs: Abnormal Lab Results - Last 24 Hours (Table) 06/15/18 06/15/18 06/16/18 Range/Units 10:42 16:53 04:28 RBC 2.81 L (4.30-5.90) m/uL Hgb 8.8 L (13.0-17.5) gm/dL Hct 27.3 L (39.0-53.0) % Potassium (3.5-5.1) mmol/L Carbon Dioxide (22-30) mmol/L BUN (9-20) mg/dL Creatinine (0.66-1.25) mg/dL POC Glucose (mg/dL) 107 H 101 H (75-99) mg/dL Phosphorus (2.5-4.5) mg/dL Alkaline Phosphatase (38-126) U/L 06/16/18 Range/Units 04:28 RBC (4.30-5.90) m/uL Hgb (13.0-17.5) gm/dL Hct (39.0-53.0) % Potassium 5.7 H (3.5-5.1) mmol/L Carbon Dioxide 21 L (22-30) mmol/L BUN 54 H (9-20) mg/dL Creatinine 10.99 H* (0.66-1.25) mg/dL POC Glucose (mg/dL) (75-99) mg/dL Phosphorus 6.5 H (2.5-4.5) mg/dL Alkaline Phosphatase 251 H (38-126) U/L Assessment and Plan Plan: Assessment #1. Dyspnea related to mild fluid overload, he missed one week's worth of dialysis, improved with hemodialysis treatment #2. Abdominal pain, diarrhea #3. Elevated amylase and lipase #4. Hypoglycemia #5. End-stage renal disease on hemodialysis on Thursday schedule #6. Hyperkalemia related to missed dialysis #7. Hypertensive emergency #8. Hypertension, hyperlipidemia #9. Bipolar, depression #10. Chronic and ongoing tobacco dependence, [id number] smoking history #11. Past history of drug abuse #12. Medical noncompliance Plan: Patient will have another hemodialysis treatment today. Clinically denies any dyspnea, no chest pain, blood pressure is better controlled. Vital signs are stable. Afebrile, no acute events overnight, nephrology is following, US gallbladder was negative for any evidence of cholelithiasis or acute cholecystitis. I performed a history & physical examination of the patient and discussed their management with my nurse practitioner, Jessica Montesinos. I reviewed the nurse practitioner's note and agree with the documented findings and plan of care. Lung sounds are diminished. The findings and the impression was discussed with the patient. I attest to the documentation by the nurse practitioner. Time with Patient: Greater than 30
[2018-06-16] MEDS: ATENOLOL 50 MG TAB PO SCH (08:58)
[2018-06-16] MEDS: amLODIPine 10 MG TAB PO SCH (08:58)
[2018-06-16] MEDS: FOLIC ACID-VIT B COMPLEX-VIT C 1 CAP PO SCH (08:58)
[2018-06-16] MEDS: FUROSEMIDE 80 MG TAB PO SCH ×2 (08:58→15:59)
[2018-06-16] MEDS: PANTOPRAZOLE 40 MG/10 ML VIAL IV SCH (08:59)
--- NOTE | 2018-06-16 10:04 | P.PN ---
Subjective Patient is seen in follow-up for end-stage renal disease. He is maintained on hemodialysis on a Thursday schedule left chest permacath. Currently resting in bed. Oral intake is fair. No vomiting or diarrhea. Scheduled for dialysis today. Vital signs are stable. General: The patient appeared well nourished and normally developed. HEENT: Head exam is unremarkable. Neck is without jugular venous distension. LUNGS: Lungs are clear to auscultation and percussion. Breath sounds decreased. HEART: Rate and Rhythm are regular. First and second heart sounds normal. No murmurs, rubs or gallops. ABDOMEN: Abdominal exam reveals normal bowel sounds. Non-tender and non- distended. No evidence of peritonitis. EXTREMITITES: No clubbing, cyanosis, or edema. Objective - Vital Signs Vital signs: Vital Signs Temp 98.7 F 06/16/18 08:11 Pulse 64 06/16/18 08:11 Resp 18 06/16/18 08:11 BP 158/90 06/16/18 08:11 Pulse Ox 95 06/16/18 08:11 Intake & Output 06/15/18 06/16/18 06/16/18 18:59 06:59 18:59 Intake Total 1100 840 280 Output Total 200 100 200 Balance 900 740 80 Intake: IV 260 240 40 Sodium Chloride 0.9% 1, 260 240 40 000 ml @ 20 mls/hr IV . Q24H [facility] Rx#:[id number] Oral 840 600 240 Output: Urine 200 100 200 Other: Voiding Method Urinal Urinal Urinal # Voids 0 # Bowel Movements 1 - Labs CBC & Chem 7: 06/16/18 04:28 06/16/18 04:28 Labs: Abnormal Lab Results - Last 24 Hours (Table) 06/15/18 06/15/18 06/16/18 Range/Units 10:42 16:53 04:28 RBC 2.81 L (4.30-5.90) m/uL Hgb 8.8 L (13.0-17.5) gm/dL Hct 27.3 L (39.0-53.0) % Potassium (3.5-5.1) mmol/L Carbon Dioxide (22-30) mmol/L BUN (9-20) mg/dL Creatinine (0.66-1.25) mg/dL POC Glucose (mg/dL) 107 H 101 H (75-99) mg/dL Phosphorus (2.5-4.5) mg/dL Alkaline Phosphatase (38-126) U/L 06/16/18 Range/Units 04:28 RBC (4.30-5.90) m/uL Hgb (13.0-17.5) gm/dL Hct (39.0-53.0) % Potassium 5.7 H (3.5-5.1) mmol/L Carbon Dioxide 21 L (22-30) mmol/L BUN 54 H (9-20) mg/dL Creatinine 10.99 H* (0.66-1.25) mg/dL POC Glucose (mg/dL) (75-99) mg/dL Phosphorus 6.5 H (2.5-4.5) mg/dL Alkaline Phosphatase 251 H (38-126) U/L Assessment and Plan Plan: Assessment: 1. End-stage renal disease maintained on hemodialysis on a Thursday schedule via left chest permacath. Patient will need to follow-up with vascular surgery as an outpatient for long-term access. 2. Hyperkalemia secondary to chronic any disease. 3. Hypertension with chronic kidney disease. Blood pressures have been on the higher side. 4. Anemia of chronic kidney disease. 5. Chronic kidney disease mineral bone disease maintained on Renvela. Plan: Hemodialysis today and again tomorrow per his outpatient schedule. Dose of amlodipine increased today. Maintain current antihypertensives. Add Aranesp.
[2018-06-16 11:43] LABS: Glucose,Whole Blood 102 mg/dL (75-99)
[2018-06-16] MEDS ORDERED: DARBEPOETIN ALFA 40 MCG/0.4 ML SYRINGE SQ SCH (12:00)
[2018-06-16] MEDS: SODIUM CHLORIDE 0.9% 1,000 ML IV SCH (12:11)
--- NOTE | 2018-06-16 13:36 | P.DS ---
Providers Date of admission: 06/14/18 11:03 Expected date of discharge: 06/16/18 Attending physician: Justin Romano Consults: 06/14/18 11:03 Consult Physician Stat Consulting Provider: Curtis Barnhart Consult Reason/Comments: Critical care Do you want consulting provider notified?: Already Contacted Consult Physician Stat Consulting Provider: Darrius Alegria Consult Reason/Comments: Renal failure, hyperkalemia Do you want consulting provider notified?: Already Contacted Primary care physician: [facility] Course: This is a 67-year-old the -[place]ian male with past medical history of end -stage renal disease on hemodialysis 3 times a week on Thursday schedule, hypertension, hyperlipidemia, bipolar, depression, current every day smoker, past drug use. Patient apparently missed his dialysis treatment yesterday, patient apparently had missed his dialysis for 1 week. Patient was supposed to be transferred to the [facility] for dialysis however the arrangements were not able to be completed. She called a local dialysis center and they were unable to fit him in. Patient has been complaining of generalized ache, some mild to moderate dyspnea, he has not taken his blood pressure medicine. Today is having some abdominal discomfort says he had some diarrhea, subjective fever and chills. Chest x-ray showed some mild fluid overload. EKG shows sinus tachycardia, with no acute ischemic changes. Labs showed WBC of 6.1, hemoglobin is 9.7, sodium is 144, potassium was 9.3, chloride is 113, CO2 is 11, B1 was 109, creatinine was 19.1. Patient was hypoglycemic with a glucose of 47, serum phosphorus was 8.5, proBNP was 22, 002 100, amylase and lipase were elevated at 200 and 825 respectively. Denies any nausea or vomiting. Patient is afebrile, his hypertensive, with a blood pressure of 216/93, room air pulse ox is 97%, respirations are even and nonlabored. Patient is having emergent dialysis The patient is seen today 06/16/2018 in follow-up in the intensive care unit. He is awake and alert in no acute distress. He denies any worsening shortness of breath, cough or congestion. He is scheduled for another hemodialysis later on today, He did undergo hemodialysis day before yesterday with 3 L of fluid removed. He is maintaining good O2 saturations in the upper 90s on room air. He is sitting up in bed having progress. Alert and oriented 3. He's been afebrile. Somewhat hypertensive. Patient remain on Norvasc from home. His discharge medications include Norvasc 10 mg daily, atenolol 50 mg by mouth 2 times a day, Ativan he is to be given with dialysis by renal services, Lasix 80 mg by mouth 2 times a day, [place] 10 one tablet 4 times a day as needed, Nephrocaps 1 tablet daily, Renvela 1600 mg by mouth 3 times a day Procedures: Hemodialysis Patient Condition at Discharge: Good Plan - Discharge Summary Discharge Rx Participant: No New Discharge Prescriptions: No Action HYDROcodone/APAP 7.5-325MG [[place] 7.5-325] 1 tab PO Q6H PRN PRN Reason: Pain amLODIPine [Norvasc] 10 mg PO DAILY Discharge Medication List HYDROcodone/APAP 7.5-325MG [[place] 7.5-325] 1 tab PO Q6H PRN 05/11/18 [History] amLODIPine [Norvasc] 10 mg PO DAILY 06/14/18 [History] Atenolol [Tenormin] 50 mg PO BID 06/16/18 [History] Folic Acid-Vit B Complex-Vit C [Nephrocaps] 1 cap PO DAILY 06/16/18 [History] Furosemide [Lasix] 80 mg PO BID 06/16/18 [History] Sevelamer [Renvela] 1,600 mg PO TID 06/16/18 [History] Follow up Appointment(s)/Referral(s): Justin Romano MD [Primary Care Provider] - 1-2 days Activity/Diet/Wound Care/Special Instructions: Dialysis will be Thursday, and Thursday at 1145, you are to arrive at 1130, at [facility]. For questions contact dialysis clinic at .
[2018-06-16 16:15] VITALS: BP 144/89; PULSE 71; RESP 12; TEMP 97.9
[2018-06-16 17:07] LABS: Glucose,Whole Blood 105 mg/dL (75-99)
== END 2018-06-16 17:27 | disposition home or self-care (01) | DRG 682 ==
LOC: EC 07:39 → 2SICU 11:03
PROVIDERS: ADMIT Family Medicine; ATTEND Family Medicine
PROC: 5A1D70Z Performance of Urinary Filtration, Intermittent, Less than 6 Hours Per Day (ICD-10-PCS; principal; 2018-06-14)
PROC: 06HN33Z Insertion of Infusion Device into Left Femoral Vein, Percutaneous Approach (ICD-10-PCS; 2018-06-14)
PROC: 5A1D70Z Performance of Urinary Filtration, Intermittent, Less than 6 Hours Per Day (ICD-10-PCS; 2018-06-16)
DX: N17.9 Acute kidney failure, unspecified (principal); K85.90 Acute pancreatitis without necrosis or infection, unspecified; I12.0 Hypertensive chronic kidney disease with stage 5 chronic kidney disease or end stage renal disease; I16.1 Hypertensive emergency; F31.30 Bipolar disorder, current episode depressed, mild or moderate severity, unspecified; E87.79 Other fluid overload; N18.6 End stage renal disease; E83.9 Disorder of mineral metabolism, unspecified; D63.1 Anemia in chronic kidney disease; E87.5 Hyperkalemia; E16.2 Hypoglycemia, unspecified; E78.5 Hyperlipidemia, unspecified; M51.9 Unspecified thoracic, thoracolumbar and lumbosacral intervertebral disc disorder; F17.210 Nicotine dependence, cigarettes, uncomplicated; Z71.6 Tobacco abuse counseling; Z79.899 Other long term (current) drug therapy; Z88.8 Allergy status to other drugs, medicaments and biological substances; Z81.1 Family history of alcohol abuse and dependence; Z83.3 Family history of diabetes mellitus; Z91.15 Patient's noncompliance with renal dialysis
CPT/HCPCS: 36415; 36556; 71046; 76705; 80053; 82150; 83036; 83690; 83735; 83880; 84100; 85025; 85610; 85730; 90935; 93005; 94640; 96365; 96375; 99291

== ENCOUNTER 2018-07-24 16:30 | Inpatient (IN) | payer MEDICARE, OTHER ==
[2018-07-24] MEDS ORDERED: ASPIRIN 81 MG PO STA (16:44)
[2018-07-24] MEDS ORDERED: NITROGLYCERIN SL TABS 0.4 MG TAB SUBLINGUAL STA ×2 (16:44)
--- NOTE | 2018-07-24 16:46 | ED ---
General Adult HPI - General Chief complaint: Chest Pain Stated complaint: CHEST PAIN Time Seen by Provider: 07/24/18 16:38 Source: patient, RN notes reviewed Mode of arrival: ambulatory Limitations: no limitations - History of Present Illness Initial comments: Patient is a pleasant 67-year-old male presenting to the emergency Department with complaints of chest discomfort. Onset of symptoms was a couple of hours ago. As comfort is moderate to severe. Discomfort feels like pressure in the sternal region without radiation. Patient may have had similar symptoms previously however does not recall much more than that. Patient has some mild associated dyspnea. No nausea vomiting. No diaphoresis. No leg pain or leg swelling. - Related Data Home Medications Medication Instructions Recorded Confirmed HYDROcodone/APAP 7.5-325MG [[place] 1 tab PO Q6H PRN 05/11/18 06/14/18 7.5-325] amLODIPine [Norvasc] 10 mg PO DAILY 06/14/18 06/14/18 Atenolol [Tenormin] 50 mg PO BID 06/16/18 06/16/18 Folic Acid-Vit B Complex-Vit C 1 cap PO DAILY 06/16/18 06/16/18 [Nephrocaps] Furosemide [Lasix] 80 mg PO BID 06/16/18 06/16/18 Sevelamer [Renvela] 1,600 mg PO TID 06/16/18 06/16/18 Allergies Allergy/AdvReac Type Severity Reaction Status Date / Time aspirin AdvReac Nausea & Verified 07/24/18 16:36 Vomiting Review of Systems ROS Statement: Those systems with pertinent positive or pertinent negative responses have been documented in the HPI. ROS Other: All systems not noted in ROS Statement are negative. Constitutional: Denies: fever Eyes: Denies: eye pain ENT: Denies: ear pain Respiratory: Denies: cough Cardiovascular: Reports: chest pain Endocrine: Denies: fatigue Gastrointestinal: Denies: abdominal pain Genitourinary: Denies: dysuria Musculoskeletal: Denies: arthralgia Skin: Denies: rash Neurological: Denies: weakness Past Medical History Past Medical History: Dialysis, Hyperlipidemia, Hypertension, Renal Disease Additional Past Medical History / Comment(s): "spot on liver", back pain History of Any Multi-Drug Resistant Organisms: None Reported Past Surgical History: Orthopedic Surgery Additional Past Surgical History / Comment(s): 07/01/16 NICO. dialysis graft to right upper arm, jaw surgery (titanium screws) Past Anesthesia/Blood Transfusion Reactions: No Reported Reaction Past Psychological History: Bipolar, Depression Smoking Status: Current every day smoker Past Alcohol Use History: Occasional Past Drug Use History: Cocaine, Heroin, Marijuana - Past Family History Father Additional Family Medical History / Comment(s): Father was an alcoholic and at 44. Mother Family Medical History: No Reported History Additional Family Medical History / Comment(s): Mother is healthy. Brother(s) Family Medical History: Diabetes Mellitus General Exam Limitations: no limitations General appearance: alert, in no apparent distress Head exam: Present: atraumatic Eye exam: Present: normal appearance ENT exam: Present: normal oropharynx Neck exam: Present: normal inspection Respiratory exam: Present: normal lung sounds bilaterally. Absent: chest wall tenderness Cardiovascular Exam: Present: regular rate, normal rhythm Expanded Peripheral pulses: 2+: Radial (R), Radial (L), Posterior Tibialis (R), Posterior Tibialis (L) GI/Abdominal exam: Present: soft. Absent: tenderness Extremities exam: Present: normal inspection. Absent: pedal edema, calf tenderness Back exam: Present: normal inspection Neurological exam: Present: alert Psychiatric exam: Present: normal affect, normal mood Skin exam: Present: normal color Course Vital Signs 07/24/18 07/24/18 16:36 17:19 Temperature 98.7 F Pulse Rate 94 Respiratory 18 Rate Blood Pressure 174/102 185/107 O2 Sat by Pulse 93 L Oximetry EKG Findings - EKG Comments: EKG Findings:: Normal sinus rhythm 82. WI 142. QRS 74. QT 408. QTC 476. Normal axis. Normal QRS. No acute ST change. Medical Decision Making - Medical Decision Making Patient reevaluated and resting comfortably in bed. Patient does have a dialysis catheter in his chest. Unable to establish peripheral IV. [facility] has been called. Case was discussed in detail with Dr. Lynnette rodriguez, covering for Dr. Mcdermott, who will admit. He is aware of IV status at this time. He does agree that dialysis catheter could be used in a code only if necessary. - Lab Data Result diagrams: 07/24/18 17:31 07/24/18 17:31 Lab Results 07/24/18 07/24/18 07/24/18 Range/Units 17:31 17:31 17:31 WBC 4.0 (3.8-10.6) k/uL RBC 3.47 L (4.30-5.90) m/uL Hgb 10.6 L (13.0-17.5) gm/dL Hct 33.7 L (39.0-53.0) % MCV 97.0 (80.0-100.0) fL MCH 30.6 (25.0-35.0) pg MCHC 31.5 (31.0-37.0) g/dL RDW 15.9 H (11.5-15.5) % Plt Count 280 (150-450) k/uL Neutrophils % 45 % Lymphocytes % 34 % Monocytes % 7 % Eosinophils % 11 % Basophils % 1 % Neutrophils # 1.8 (1.3-7.7) k/uL Lymphocytes # 1.4 (1.0-4.8) k/uL Monocytes # 0.3 (0-1.0) k/uL Eosinophils # 0.4 (0-0.7) k/uL Basophils # 0.0 (0-0.2) k/uL PT (9.0-12.0) sec INR (<1.2) APTT (22.0-30.0) sec Sodium 138 (137-145) mmol/L Potassium 4.6 (3.5-5.1) mmol/L Chloride 98 (98-107) mmol/L Carbon Dioxide 30 (22-30) mmol/L Anion Gap 10 mmol/L BUN 9 (9-20) mg/dL Creatinine 3.23 H (0.66-1.25) mg/dL Est GFR (CKD-EPI)AfAm 21 (>60 ml/min/1.73 sqM) Est GFR (CKD-EPI)NonAf 19 (>60 ml/min/1.73 sqM) Glucose 89 (74-99) mg/dL Calcium 9.2 (8.4-10.2) mg/dL Magnesium 2.1 (1.6-2.3) mg/dL Total Bilirubin 0.5 (0.2-1.3) mg/dL AST 54 (17-59) U/L ALT 26 (21-72) U/L Alkaline Phosphatase 171 H (38-126) U/L Total Creatine Kinase 50 L (55-170) U/L CK-MB (CK-2) 0.7 (0.0-2.4) ng/mL CK-MB (CK-2) Rel Index 1.4 Troponin I <0.012 (0.000-0.034) ng/mL Total Protein 7.6 (6.3-8.2) g/dL Albumin 4.1 (3.5-5.0) g/dL 07/24/18 Range/Units 17:31 WBC (3.8-10.6) k/uL RBC (4.30-5.90) m/uL Hgb (13.0-17.5) gm/dL Hct (39.0-53.0) % MCV (80.0-100.0) fL MCH (25.0-35.0) pg MCHC (31.0-37.0) g/dL RDW (11.5-15.5) % Plt Count (150-450) k/uL Neutrophils % % Lymphocytes % % Monocytes % % Eosinophils % % Basophils % % Neutrophils # (1.3-7.7) k/uL Lymphocytes # (1.0-4.8) k/uL Monocytes # (0-1.0) k/uL Eosinophils # (0-0.7) k/uL Basophils # (0-0.2) k/uL PT 10.5 (9.0-12.0) sec INR 1.0 (<1.2) APTT 32.9 H (22.0-30.0) sec Sodium (137-145) mmol/L Potassium (3.5-5.1) mmol/L Chloride (98-107) mmol/L Carbon Dioxide (22-30) mmol/L Anion Gap mmol/L BUN (9-20) mg/dL Creatinine (0.66-1.25) mg/dL Est GFR (CKD-EPI)AfAm (>60 ml/min/1.73 sqM) Est GFR (CKD-EPI)NonAf (>60 ml/min/1.73 sqM) Glucose (74-99) mg/dL Calcium (8.4-10.2) mg/dL Magnesium (1.6-2.3) mg/dL Total Bilirubin (0.2-1.3) mg/dL AST (17-59) U/L ALT (21-72) U/L Alkaline Phosphatase (38-126) U/L Total Creatine Kinase (55-170) U/L CK-MB (CK-2) (0.0-2.4) ng/mL CK-MB (CK-2) Rel Index Troponin I (0.000-0.034) ng/mL Total Protein (6.3-8.2) g/dL Albumin (3.5-5.0) g/dL - Radiology Data Radiology results: image reviewed (Checks x-ray shows stable mild interstitial edema. No suspicious infiltrate.) Disposition Clinical Impression: Chest pain Disposition: ADMITTED IP TO THIS HOSP Is patient prescribed a controlled substance at d/c from ED?: No Referrals: Justin Romano MD [Primary Care Provider] - 1-2 days Decision Time: 18:33
[2018-07-24] MEDS: NITROGLYCERIN SL TABS 0.4 MG TAB SUBLINGUAL STA ×2 (17:32→17:36)
[2018-07-24 17:44] LABS: Basophils % (A) 1 %; Eosinophils # (A) 0.4 k/uL (0-0.7); Eosinophils % (A) 11 %; HCT 33.7 % (39.0-53.0); HGB 10.6 gm/dL (13.0-17.5); Lymphocytes # (A) 1.4 k/uL (1.0-4.8); Lymphocytes % (A) 34 %; MCH 30.6 pg (25.0-35.0); MCHC 31.5 g/dL (31.0-37.0); Mean Platelet Volume 6.7; Monocytes # (A) 0.3 k/uL (0-1.0); Monocytes % (A) 7 %; Neutrophils # (A) 1.8 k/uL (1.3-7.7); Neutrophils % (A) 45 %; Platelet Count 280 k/uL (150-450); RBC 3.47 m/uL (4.30-5.90); RDW 15.9 % (11.5-15.5)
--- NOTE | 2018-07-24 17:45 | XR ---
EXAMINATION TYPE: XR chest 2V DATE OF EXAM: 07/24/2018 COMPARISON: Chest x-ray June 14, 2018. HISTORY: Chest pain into back. TECHNIQUE: Frontal and lateral views of the chest are obtained. FINDINGS: There is stable dual-lumen left internal jugular dialysis catheter There is no focal air s pace opacity, pleural effusion, or pneumothorax seen. Mild interstitial edema is redemonstrated. The cardiac silhouette size is upper limits of normal. The osseous structures are intact. IMPRESSION: Stable mild interstitial edema. No new suspicious focal infiltrate.
[2018-07-24 17:52] LABS: Partial Thromboplastin Time 32.9 sec (22.0-30.0); Prothrombin Time 10.5 sec (9.0-12.0)
[2018-07-24 17:53] LABS: Albumin 4.1 g/dL (3.5-5.0); Calcium 9.2 mg/dL (8.4-10.2); Magnesium 2.1 mg/dL (1.6-2.3); Potassium 4.6 mmol/L (3.5-5.1); Total Bilirubin 0.5 mg/dL (0.2-1.3); Total Protein 7.6 g/dL (6.3-8.2)
[2018-07-24 18:00] LABS: Creatine Kinase 50 U/L (55-170)
[2018-07-24 18:13] LABS: Creatine Kinase MB 0.7 ng/mL (0.0-2.4); Troponin I <0.012 ng/mL (0.000-0.034)
[2018-07-24] MEDS ORDERED: NITROGLYCERIN SL TABS 0.4 MG TAB SUBLINGUAL PRN (18:33)
[2018-07-24] MEDS: SEVELAMER 800 MG TAB PO SCH (21:42)
[2018-07-24] MEDS: HYDROcodone/APAP 7.5-325MG 1 EACH TAB PO PRN (21:47)
[2018-07-24] MEDS: cloNIDine HCL 0.2 MG TAB PO SCH (21:48)
[2018-07-24] MEDS: NITROGLYCERIN OINT 1 INCH/GM PACKET TOPICAL SCH (23:21)
[2018-07-25 00:35] LABS: Creatine Kinase 43 U/L (55-170)
[2018-07-25 00:47] LABS: Creatine Kinase MB 0.5 ng/mL (0.0-2.4); Troponin I <0.012 ng/mL (0.000-0.034)
[2018-07-25 03:03] LABS: Cholesterol 181 mg/dL (<200); Triglycerides 124 mg/dL (<150)
[2018-07-25 03:11] LABS: LDL Cholesterol,Calculated 14 mg/dL (0-99)
[2018-07-25 03:31] LABS: HDL Cholesterol 142 mg/dL (40-60)
[2018-07-25] MEDS: NITROGLYCERIN OINT 1 INCH/GM PACKET TOPICAL SCH (06:24)
[2018-07-25 06:46] LABS: Creatine Kinase 39 U/L (55-170)
[2018-07-25 06:59] LABS: Creatine Kinase MB 0.4 ng/mL (0.0-2.4); Troponin I <0.012 ng/mL (0.000-0.034)
[2018-07-25] MEDS ORDERED: ASPIRIN 325 MG TAB PO SCH (09:00)
[2018-07-25] MEDS: amLODIPine 10 MG TAB PO SCH (09:30)
[2018-07-25] MEDS: SEVELAMER 800 MG TAB PO SCH ×3 (09:30→22:15)
[2018-07-25] MEDS: HYDROcodone/APAP 7.5-325MG 1 EACH TAB PO PRN ×3 (09:30→21:06)
[2018-07-25] MEDS: cloNIDine HCL 0.2 MG TAB PO SCH ×3 (09:30→22:15)
[2018-07-25] MEDS: FOLIC ACID-VIT B COMPLEX-VIT C 1 CAP PO SCH (09:30)
--- NOTE | 2018-07-25 12:08 | CONS ---
CONSULTATION ATTENDING PHYSICIAN: Dr. Justin Romano HISTORY OF PRESENT ILLNESS: Mr. Guillen is a 67-year-old male with known history of coronary artery disease, end- stage renal disease, on hemodialysis, history of hypertension, chronic tobacco use, history of alcohol intake and prior drug use, although according to him, he has not used any recently, who presented to the hospital with symptoms of chest discomfort that occurred while he was in dialysis. He had a prior admission with chest discomfort but no documented history of coronary artery disease. The discomfort has been persistent and not positional, nonrespirophasic. The patient is not very active physically. He denies any history of myocardial infarction or ischemic heart disease. His echocardiogram in the past has revealed preserved left ventricular size and systolic function. He has no history of significant peripheral edema. No clear PND or orthopnea. His coronary risk factors are remarkable for the history of hypertension and chronic tobacco use as noted. He is nondiabetic. MEDICATION: Catapres 0.2 mg 3 times a day, amlodipine 10 mg daily, Renvela 1600 mg 3 times a day, [place], and Nephrocaps. REVIEW OF SYSTEMS: RESPIRATORY system: He has dyspnea on exertion. No recent wheezing. GI system: No recent GI bleeding. No peptic ulcer disease. No nausea. system: He has end-stage renal disease with no urine output. Nervous system: No history of stroke or seizure. PHYSICAL EXAMINATION: A 67-year-old male, alert, oriented, in no apparent distress. Appears older than stated age. Blood pressure 167/80 with a heart rate in the 70s. HEAD: Normocephalic. Eyes sclerae anicteric. Neck good upstroke. No bruit. No jugular venous distention. LUNGS: Clear to auscultation. HEART: Regular rate and rhythm S1, S2. No S3 with a systolic ejection murmur. No diastolic murmur. No rub. ABDOMEN: Soft, nontender. Positive bowel sounds. No megaly. EXTREMITIES: No edema. Decreased distal pulses. LAB DATA: Lab data revealed troponin less than 0.012 for 3 samples. Cholesterol of 181, LDL of 14, HDL of 142, creatinine of 3.23. Hemoglobin of 10.6. EKG revealed a sinus mechanism, normal axis and intervals. No acute changes. Chest x-ray shows no acute infiltrate. IMPRESSION: 1. Chest discomfort of unclear etiology. Patient has no evidence for acute coronary syndrome. 2. History of end-stage renal disease, on hemodialysis. 3. History of hypertension. 4. Chronic tobacco use. 5. Prior history of drug use. 6. Prior history of noncompliance. RECOMMENDATION: From the cardiac standpoint, I would recommend to obtain a stress echocardiogram to evaluate his status and guide his treatment. Depending on those findings, further recommendations will be made. Thank you for this consult. We will follow with you. MMMARGYL / IJN: [id number] /
[2018-07-25] MEDS: ISOSORBIDE MONONITRATE ER 30 MG TAB.ER.24H PO SCH (12:19)
--- NOTE | 2018-07-25 12:53 | HP ---
HISTORY AND PHYSICAL Edgar Guillen is a 67-year-old male who has a known history of chronic renal failure and is on dialysis. He was on dialysis yesterday when he developed chest pain. It was located retrosternally, worsened a little bit when he took a deep breath. He was subsequently seen in the ER and admitted for further treatment. He was seen by Cardiology and is to have a stress test done tomorrow. PAST MEDICAL HISTORY: Positive for chronic renal failure for which he is on dialysis with a left chest area dialysis catheter, previous dialysis grafts to the right upper and the left forearm and the left upper arm which have clotted. History of jaw surgery with titanium screws. History of bipolar depression. History of cyst on the liver. SOCIAL HISTORY: Patient is a current everyday smoker. He used to use cocaine, heroin, and marijuana in the past. FAMILY HISTORY: Positive for alcoholism in his father. His mother apparently is healthy. A brother has a history of diabetes mellitus. REVIEW OF SYSTEMS: Noncontributory other than for what is described in the history of present illness and past medical history. MEDICATIONS: Medications prior to admission were clonidine, Norvasc, aspirin, Renvela, [place] and Nephrocaps. PHYSICAL EXAMINATION: He was lying in bed. He was anxious. His blood pressure was 159/83, respiratory rate of 18, pulse rate of 75, temperature 98.2, O2 saturation on room air is 96%. HEENT reveals pupils equal. CHEST: Clear. Cardiovascular system: Reveals S1, S2. No S3, no S4. No pericardial rub. Abdomen is soft. There is no edema. There is a left chest dialysis catheter in place. LABS: Reveal a white count of 4, hemoglobin of 10.6, PT/INR of 1.0, PTT of 32.9. Sodium 138, potassium 4.6, chloride 98, bicarb 30, BUN 9, creatinine of 3.23. Troponin is less than 0.012. Chest x-ray shows mild interstitial edema with the left internal jugular dialysis catheter in place. IMPRESSION: At this time: 1. Chest pain with a high likelihood of coronary artery disease for which the patient has been seen by Cardiology and is scheduled for a dobutamine stress test tomorrow. 2. Chronic renal failure on dialysis. 3. Hypertension. Continue him on his current medications which were reviewed. Redo his home medications. Keep him on subcutaneous heparin as well as Pepcid for DVT and GI prophylaxis. His prognosis at this time is guarded. He was counseled regarding his condition and this approach. DELGADO / IJN: [id number] /
[2018-07-25] MEDS: HEPARIN SODIUM,PORCINE 5,000 UNIT/ML 1 ML VIAL SQ SCH ×2 (22:15→22:17)
[2018-07-25] MEDS: FAMOTIDINE 20 MG TAB PO SCH (22:15)
[2018-07-26] MEDS: HYDROcodone/APAP 7.5-325MG 1 EACH TAB PO PRN ×4 (03:22→21:00)
[2018-07-26] MEDS ORDERED: DOBUTamine DRIP for NUC MED 500 MG in DEXTROSE/WATER 1 250ML.BAG IV ONE (07:00)
[2018-07-26] MEDS: ASPIRIN 81 MG PO SCH (09:12)
[2018-07-26] MEDS: FOLIC ACID-VIT B COMPLEX-VIT C 1 CAP PO SCH (09:12)
[2018-07-26] MEDS: SEVELAMER 800 MG TAB PO SCH ×3 (09:12→21:00)
[2018-07-26] MEDS: ISOSORBIDE MONONITRATE ER 30 MG TAB.ER.24H PO SCH (09:13)
[2018-07-26] MEDS: HEPARIN SODIUM,PORCINE 5,000 UNIT/ML 1 ML VIAL SQ SCH ×3 (09:13→20:38)
[2018-07-26] MEDS: cloNIDine HCL 0.2 MG TAB PO SCH ×3 (09:13→21:00)
[2018-07-26] MEDS: FAMOTIDINE 20 MG TAB PO SCH (09:13)
[2018-07-26 11:31] LABS: Basophils # (A) 0.1 k/uL (0-0.2); Basophils % (A) 1 %; Eosinophils # (A) 0.4 k/uL (0-0.7); Eosinophils % (A) 10 %; HCT 33.5 % (39.0-53.0); HGB 10.2 gm/dL (13.0-17.5); Hypochromasia Slight; Lymphocytes # (A) 1.2 k/uL (1.0-4.8); Lymphocytes % (A) 30 %; MCH 30.8 pg (25.0-35.0); MCHC 30.5 g/dL (31.0-37.0); MCV 100.8 fL (80.0-100.0); Macrocytosis Slight; Monocytes # (A) 0.3 k/uL (0-1.0); Monocytes % (A) 6 %; Neutrophils % (A) 50 %; Platelet Count 282 k/uL (150-450); RBC 3.32 m/uL (4.30-5.90); RDW 15.6 % (11.5-15.5); WBC 4.1 k/uL (3.8-10.6)
[2018-07-26 11:44] LABS: Albumin 3.6 g/dL (3.5-5.0); Calcium 9.2 mg/dL (8.4-10.2); Total Bilirubin 0.5 mg/dL (0.2-1.3); Total Protein 6.8 g/dL (6.3-8.2)
[2018-07-26 11:58] LABS: Potassium 6.7 mmol/L (3.5-5.1)
[2018-07-26] MEDS ORDERED: SODIUM CHLORIDE 0.65% NASAL SPRAY 44 ML BTL NASAL PRN (12:22)
--- NOTE | 2018-07-26 12:31 | P.PN ---
Subjective Progress Note Date: 07/26/18 Interval History: 07/26/18- This is a 67-year-old male patient being seen examined and evaluated today while covering for Dr. Justin Romano. He has a known history of chronic renal failure and is currently on dialysis in the outpatient setting he does go on Tuesdays and Saturdays. He did develop chest pain while at the dialysis center and came into the emergency room for further evaluation and treatment. Cardiology is following the patient and he will be undergoing a stress test. Nephrology has been consulted for dialysis. He labs were obtained and did show a critical Potassium of 6.7, BUN 38, creatinine is 7.77. Nephrology is aware and will see the patient. The patient does complain of some nasal congestion and is requesting nasal spray. He is afebrile no further complaints. Objective - Vital Signs Vital signs: Vital Signs Temp 97.3 F L 07/26/18 08:00 Pulse 62 07/26/18 08:00 Resp 16 07/26/18 08:00 BP 180/89 07/26/18 08:00 Pulse Ox 94 L 07/26/18 08:00 Intake & Output 07/25/18 07/26/18 07/26/18 18:59 06:59 18:59 Intake Total 200 Balance 200 Weight 64 kg Intake: Oral 200 Other: # Voids 1 - Exam GENERAL EXAM: Alert, active, comfortable in no apparent distress. HEAD: Normocephalic. EYES: Normal reaction of pupils, equal size. NOSE: Clear with pink turbinates. THROAT: No erythema or exudates. NECK: No masses, no JVD. CHEST: No chest wall deformity. Left chest dialysis catheter in place LUNGS: Equal air entry with no crackles, wheeze, rhonchi or dullness. Bases diminished CVS: S1 and S2 normal with no audible mumurs, regular rhythm. ABDOMEN: No hepatosplenomegaly, normal bowel sounds, no guarding or rigidity. EXTREMITIES: No edema noted, pedal pulses palpable. CENTRAL NERVOUS SYSTEM: No focal deficits, tone is normal in all 4 extremities. - Labs CBC & Chem 7: 07/26/18 11:01 07/26/18 11:01 Labs: Abnormal Lab Results - Last 24 Hours (Table) 07/26/18 07/26/18 Range/Units 11:01 11:01 RBC 3.32 L (4.30-5.90) m/uL Hgb 10.2 L (13.0-17.5) gm/dL Hct 33.5 L (39.0-53.0) % MCV 100.8 H (80.0-100.0) fL MCHC 30.5 L (31.0-37.0) g/dL RDW 15.6 H (11.5-15.5) % Potassium 6.7 H* (3.5-5.1) mmol/L BUN 38 H (9-20) mg/dL Creatinine 7.77 H* (0.66-1.25) mg/dL Glucose 101 H (74-99) mg/dL ALT 20 L (21-72) U/L Alkaline Phosphatase 218 H (38-126) U/L Assessment and Plan Assessment: Assessment Chest pain high likelihood of CAD Acute on chronic renal failure, end-stage on dialysis Hypertension Hyperkalemia Postnasal drip Nicotine dependence History of noncompliance in the past with dialysis and medications Plan Medications have been reviewed and will be continued as ordered. Continue to monitor electrolytes Dialysis per nephrology Cardiology on consult Patient stress test pending Machine and encourage incentive spirometer Nasal spray as requested Continue with pulmonary hygiene, coughing and deep breathing exercises, and supportive care. Supplemental oxygen to maintain oxygen saturations of 92% or better. Continue nebulizer treatments. GI and DVT prophylaxis. We will continue to monitor labs/results and adjust treatment as necessary. Further recommendations pending. I, the signing physician performed an examination of the patient, discussed and directed their management with the nurse practitioner. I have reviewed the nurse practitioner's note and agree with the documented findings, orders and plan of care. Nurse practitioner acting as a scribe for the signing physician. Please note we are covering for Dr. Justin Romano.
[2018-07-26] MEDS: amLODIPine 10 MG TAB PO SCH (13:35)
--- NOTE | 2018-07-26 15:37 | P.PN ---
Subjective Progress Note Date: 07/26/18 This is 67-year-old gentleman with known history of coronary artery disease, end -stage renal disease on hemodialysis, hypertension, chronic tobacco use, history of EtOH and drug use, presented to the hospital with symptoms of chest discomfort. He underwent a dobutamine echocardiographic study today that was reported to be negative for any reversible ischemia. Hemodynamically he is stable. Objective - Vital Signs Vital signs: Vital Signs Temp 97.4 F L 07/26/18 12:00 Pulse 62 07/26/18 08:00 Resp 16 07/26/18 12:00 BP 169/98 07/26/18 12:00 Pulse Ox 100 07/26/18 12:00 Intake & Output 07/25/18 07/26/18 07/26/18 18:59 06:59 18:59 Intake Total 200 Balance 200 Weight 64 kg Intake: Oral 200 Other: # Voids 1 - Exam PHYSICAL EXAMINATION: GENERAL: 67-year-old gentleman in no acute distress at the time of my examination HEENT: Head is atraumatic, normocephalic. Pupils equal, round. Sclera anicteric. Conjunctiva are clear. Mucous membranes of the mouth are moist. Neck is supple. There is no elevated jugular venous pressure.] bruit is heard. HEART EXAMINATION: Heart S1, S2 normal. No murmur or gallop heard. CHEST EXAMINATION: Lungs are clear to auscultation and precussion. No chest wall tenderness is noted on palpation or with deep breathing. ABDOMEN: Soft, nontender. Bowel sounds are heard. No organomegaly noted. EXTREMITIES: 2+ peripheral pulses with no evidence of peripheral edema and no calf tenderness noted. NEUROLOGIC patient is awake, alert and oriented ?-3. . - Labs CBC & Chem 7: 07/26/18 11:01 07/26/18 11:01 Labs: Abnormal Lab Results - Last 24 Hours (Table) 07/26/18 07/26/18 Range/Units 11: 11: RBC 3.32 L (4.30-5.90) m/uL Hgb 10.2 L (13.0-17.5) gm/dL Hct 33.5 L (39.0-53.0) % MCV 100.8 H (80.0-100.0) fL MCHC 30.5 L (31.0-37.0) g/dL RDW 15.6 H (11.5-15.5) % Potassium 6.7 H* (3.5-5.1) mmol/L BUN 38 H (9-20) mg/dL Creatinine 7.77 H* (0.66-1.25) mg/dL Glucose 101 H (74-99) mg/dL ALT 20 L (21-72) U/L Alkaline Phosphatase 218 H (38-126) U/L Assessment and Plan Plan: Assessment and plan #1 chest pain, atypical for acute coronary syndrome. Dobutamine echocardiographic study negative for any reversible ischemia. #2 history of end-stage renal disease on hemodialysis #3 history of hypertension #4 chronic tobacco use #5 history of drug abuse #6 history of noncompliance Plan cardiology's perspective, patient may be able to be discharged home to follow-up with his primary care doctor as an outpatient. DNP note has been reviewed, I agree with a documented findings and plan of care. Patient was seen and examined.
[2018-07-26] MEDS ORDERED: DARBEPOETIN ALFA 40 MCG/0.4 ML SYRINGE SQ SCH (18:15)
--- NOTE | 2018-07-26 19:18 | CONS ---
CONSULTATION REASON FOR CONSULT: End-stage renal disease. HISTORY OF PRESENT ILLNESS: Patient is a 67-year-old male with a history of end-stage renal disease, on hemodialysis on a Thursday, , Thursday schedule. He was admitted to the hospital with complaints of chest pain. The patient states that he was dialyzed on Thursday and his pain started after dialysis. He has been evaluated by Cardiology and is scheduled for a stress test today. The patient does have a prior history of drug abuse and has had noncompliance with dialysis previously. His troponins are currently negative. Of note, is that lately he has been compliant with his output outpatient dialysis treatments. Patient denies fevers, chills, nausea, vomiting or abdominal pain. PAST MEDICAL HISTORY: End-stage renal disease, anemia of chronic disease, CKD mineral bone disorder, history of drug abuse. Peripheral vascular disease, bipolar disorder. PAST SURGICAL HISTORY: AV graft on the left arm which is currently nonfunctional. Patient had a new access on his right arm which is also clotted. He has had PermCath placed and removed previously. MEDICATIONS: Prior to admission included Norvasc, atenolol, Vicodin, Nephrocaps, Lasix, Renvela. ALLERGIES: INCLUDE ASPIRIN WHICH CAUSES NAUSEA AND VOMITING. REVIEW OF SYSTEMS: As per HPI. Other systems negative. EXAMINATION: Currently, patient is comfortable, awake. He is not in any acute distress. Blood pressure this morning was 180/89, heart rate of 62 per minute. He is afebrile. Examination of the heart S1, S2. Examination of lungs bilateral breath sounds are heard. Abdomen is soft, nontender. Examination of lower extremities shows no evidence of edema. LEARNING DISABILITIES SPECIALIST exam is grossly intact. LABS SHOW: Sodium of 138, potassium 6.7, serum creatinine 7.7, hemoglobin 10.2 g/dL. ASSESSMENT: 1. End-stage renal disease, on hemodialysis on a Thursday, , Thursday schedule. The patient will be dialyzed today for a short treatment as his potassium is significantly elevated. He will receive a full treatment tomorrow. 2. Anemia of chronic disease. 3. Chest pains going for stress test. 4. Chronic kidney disease, mineral bone disorder. Check phosphorus level. I do not see any phosphate binders on his med list. PLAN: Hemodialysis today and then repeat tomorrow. Maintain patient on Procrit. Okay to use midline in the left arm with a nonfunctional axis. The right arm access needs to be declotted. Thank you for this consultation. We will continue to follow the patient with you during his hospitalization. MMODL / IJN: [id number] /
[2018-07-27] MEDS: HYDROcodone/APAP 7.5-325MG 1 EACH TAB PO PRN ×4 (03:02→20:53)
[2018-07-27 07:06] LABS: Albumin 3.7 g/dL (3.5-5.0); Calcium 9.2 mg/dL (8.4-10.2); Total Bilirubin 0.6 mg/dL (0.2-1.3); Total Protein 7.1 g/dL (6.3-8.2)
[2018-07-27 07:19] LABS: Potassium 6.8 mmol/L (3.5-5.1)
[2018-07-27 07:43] LABS: Basophils # (A) 0.1 k/uL (0-0.2); Basophils % (A) 1 %; Eosinophils # (A) 0.5 k/uL (0-0.7); Eosinophils % (A) 9 %; HCT 35.5 % (39.0-53.0); HGB 11.3 gm/dL (13.0-17.5); Lymphocytes # (A) 1.4 k/uL (1.0-4.8); Lymphocytes % (A) 25 %; MCH 31.8 pg (25.0-35.0); MCV 99.6 fL (80.0-100.0); Macrocytosis Slight; Mean Platelet Volume 6.9; Monocytes # (A) 0.5 k/uL (0-1.0); Monocytes % (A) 9 %; Neutrophils % (A) 54 %; Platelet Count 275 k/uL (150-450); RBC 3.56 m/uL (4.30-5.90); RDW 15.8 % (11.5-15.5); WBC 5.6 k/uL (3.8-10.6)
[2018-07-27] MEDS: HEPARIN SODIUM,PORCINE 5,000 UNIT/ML 1 ML VIAL SQ SCH ×2 (08:33→19:50)
[2018-07-27] MEDS: ISOSORBIDE MONONITRATE ER 30 MG TAB.ER.24H PO SCH (08:55)
[2018-07-27] MEDS: ASPIRIN 81 MG PO SCH (08:55)
[2018-07-27] MEDS: SEVELAMER 800 MG TAB PO SCH ×3 (08:56→20:53)
[2018-07-27] MEDS: FAMOTIDINE 20 MG TAB PO SCH (08:56)
[2018-07-27] MEDS: amLODIPine 10 MG TAB PO SCH (08:56)
[2018-07-27] MEDS: cloNIDine HCL 0.2 MG TAB PO SCH ×3 (08:56→20:53)
[2018-07-27] MEDS: FOLIC ACID-VIT B COMPLEX-VIT C 1 CAP PO SCH (08:56)
--- NOTE | 2018-07-27 12:11 | P.PN ---
Subjective Progress Note Date: 07/27/18 Interval History: 07/26/18- This is a 67-year-old male patient being seen examined and evaluated today while covering for Dr. Justin Romano. He has a known history of chronic renal failure and is currently on dialysis in the outpatient setting he does go on Tuesdays and Saturdays. He did develop chest pain while at the dialysis center and came into the emergency room for further evaluation and treatment. Cardiology is following the patient and he will be undergoing a stress test. Nephrology has been consulted for dialysis. He labs were obtained and did show a critical Potassium of 6.7, BUN 38, creatinine is 7.77. Nephrology is aware and will see the patient. The patient does complain of some nasal congestion and is requesting nasal spray. He is afebrile no further complaints. 07/27/18- patient is being seen examined and evaluated today on rounds. His labs are reviewed he does have a potassium of 6.8, BUN of 39, creatinine 7.53. Plan is for hemodialysis, nephrology following the patient closely. Cardiology is following with the patient as well. The patient has not been out of bed much stated he is feeling very weak. We will consult PT and OT. Objective - Vital Signs Vital signs: Vital Signs Temp 97.8 F 07/27/18 11:48 Pulse 66 07/27/18 11:48 Resp 16 07/27/18 11:48 BP 143/81 07/27/18 11:48 Pulse Ox 98 07/27/18 11:48 Intake & Output 07/26/18 07/27/18 07/27/18 18:59 06:59 18:59 Intake Total 240 118 Balance 240 118 Weight 64.5 kg Intake: Oral 240 118 Other: Voiding Method Toilet # Voids 1 1 1 - Exam GENERAL EXAM: Alert, comfortable in no apparent distress. HEAD: Normocephalic. EYES: Normal reaction of pupils, equal size. NOSE: Clear with pink turbinates. THROAT: No erythema or exudates. NECK: No masses, no JVD. CHEST: No chest wall deformity. Left chest dialysis catheter in place LUNGS: Equal air entry with no crackles, wheeze, rhonchi or dullness. Bases diminished CVS: S1 and S2 normal with no audible mumurs, regular rhythm. ABDOMEN: No hepatosplenomegaly, normal bowel sounds, no guarding or rigidity. EXTREMITIES: No edema noted, pedal pulses palpable. CENTRAL NERVOUS SYSTEM: No focal deficits, tone is normal in all 4 extremities. - Labs CBC & Chem 7: 07/27/18 05:48 07/27/18 05:48 Labs: Abnormal Lab Results - Last 24 Hours (Table) 07/27/18 07/27/18 Range/Units 05:48 05:48 RBC 3.56 L (4.30-5.90) m/uL Hgb 11.3 L (13.0-17.5) gm/dL Hct 35.5 L (39.0-53.0) % RDW 15.8 H (11.5-15.5) % Potassium 6.8 H* (3.5-5.1) mmol/L BUN 39 H (9-20) mg/dL Creatinine 7.53 H* (0.66-1.25) mg/dL Glucose 102 H (74-99) mg/dL ALT 20 L (21-72) U/L Alkaline Phosphatase 259 H (38-126) U/L Assessment and Plan Assessment: Assessment Chest pain high likelihood of CAD Acute on chronic renal failure, end-stage on dialysis Hypertension Hyperkalemia Postnasal drip Nicotine dependence History of noncompliance in the past with dialysis and medications Plan Medications have been reviewed and will be continued as ordered. Continue to monitor electrolytes Dialysis per nephrology Cardiology on consult Patient stress test pending Machine and encourage incentive spirometer Nasal spray as requested Continue with pulmonary hygiene, coughing and deep breathing exercises, and supportive care. Supplemental oxygen to maintain oxygen saturations of 92% or better. Continue nebulizer treatments. GI and DVT prophylaxis. We will continue to monitor labs/results and adjust treatment as necessary. Further recommendations pending. I, the signing physician performed an examination of the patient, discussed and directed their management with the nurse practitioner. I have reviewed the nurse practitioner's note and agree with the documented findings, orders and plan of care. Nurse practitioner acting as a scribe for the signing physician. Please note we are covering for Dr. Justin Romano.
--- NOTE | 2018-07-27 14:01 | ECHOS ---
STRESS ECHOCARDIOGRAM INDICATIONS: Chest pain. BASELINE HEART RATE: 57 BASELINE BLOOD PRESSURE: 153/77 MAXIMUM HEART RATE: 130 MAXIMUM BLOOD PRESSURE: 163/55 85% MPHR: 128 100% MPHR: 151 MAXIMUM STAGE REACHED: 3 TOTAL EXERCISE TIME: 8:00 CLINICAL INFORMATION: A dobutamine echocardiographic study was performed. Peak heart rate of 130 was achieved, maximum blood pressure of 163/55 mmHg was noted. Resting EKG shows normal sinus rhythm with normal CT interval and QRS duration and normal ST-T waves. No ST- segment depression suggestive of ischemia was noted. The baseline echocardiographic images reveals a normal left ventricular chamber size with normal left ventricular systolic function. At the peak dose of dobutamine infusion, normal increase in the wall thickness and contractility was noted. FINAL IMPRESSION: 1. This dobutamine stress echocardiographic study is negative for stress-induced ischemia. 2. EKG portion of the stress test is not suggestive of ischemia. MMODL / IJN: [id number] /
--- NOTE | 2018-07-27 21:49 | PN ---
PROGRESS NOTE The patient is seen for followup for end-stage renal disease. He is scheduled for hemodialysis today. Potassium remains elevated at 6.8 today. The patient was dialyzed yesterday. He states he is not feeling well with vague complaints of body aches, and there is no cough or fever, abdominal pain or diarrhea or vomiting noted at this time. PHYSICAL EXAMINATION: Blood pressure was 143/81, heart rate 66 per minute. Patient is afebrile. Examination of the heart S1, S2. Examination of the lungs bilateral breath sounds are heard. Abdomen is soft, nontender. Exam of lower extremities shows no evidence of edema. LINUX NETWORK ENGINEER exam is grossly intact. LABS SHOW: Potassium 6.8, BUN 39, serum creatinine 7.53. ASSESSMENT: 1. End-stage renal disease, for hemodialysis today. 2. Hyperkalemia, status post dialysis yesterday. However, the potassium has not improved much. Patient will be dialyzed again today and we will recheck it in the a.m. and we may need to dialyze him again tomorrow if he remains hyperkalemic. No evidence of active gastrointestinal bleed noted at this time. Patient is advised to maintain a low-potassium diet. 3. Hypertension partly volume sensitive. Increase UF as tolerated with hemodialysis today. 4. Chest pain, resolved. Stress test was negative. 5. CKD mineral bone disorder, maintained on Renvela. PLAN: Hemodialysis today. Repeat labs in a.m. MMARACELI / MARYCRUZ: [id number] /
[2018-07-28] MEDS: HYDROcodone/APAP 7.5-325MG 1 EACH TAB PO PRN ×2 (03:33→09:17)
[2018-07-28 06:50] LABS: Albumin 3.9 g/dL (3.5-5.0); Calcium 9.6 mg/dL (8.4-10.2); Magnesium 2.1 mg/dL (1.6-2.3); Total Bilirubin 0.5 mg/dL (0.2-1.3); Total Protein 7.2 g/dL (6.3-8.2)
[2018-07-28 07:11] LABS: Potassium 6.1 mmol/L (3.5-5.1)
[2018-07-28 08:17] LABS: Basophils # (A) 0.1 k/uL (0-0.2); Basophils % (A) 1 %; Eosinophils # (A) 0.5 k/uL (0-0.7); Eosinophils % (A) 9 %; HCT 37.2 % (39.0-53.0); HGB 11.8 gm/dL (13.0-17.5); Lymphocytes # (A) 1.7 k/uL (1.0-4.8); Lymphocytes % (A) 31 %; MCH 31.4 pg (25.0-35.0); MCHC 31.8 g/dL (31.0-37.0); MCV 98.7 fL (80.0-100.0); Macrocytosis Slight; Monocytes # (A) 0.4 k/uL (0-1.0); Monocytes % (A) 8 %; Neutrophils # (A) 2.7 k/uL (1.3-7.7); Neutrophils % (A) 49 %; Platelet Count 247 k/uL (150-450); RBC 3.77 m/uL (4.30-5.90); RDW 15.6 % (11.5-15.5); WBC 5.6 k/uL (3.8-10.6)
--- NOTE | 2018-07-28 12:04 | P.PN ---
Subjective Progress Note Date: 07/28/18 Interval History: 07/26/18- This is a 67-year-old male patient being seen examined and evaluated today while covering for Dr. Justin Romano. He has a known history of chronic renal failure and is currently on dialysis in the outpatient setting he does go on Tuesdays and Saturdays. He did develop chest pain while at the dialysis center and came into the emergency room for further evaluation and treatment. Cardiology is following the patient and he will be undergoing a stress test. Nephrology has been consulted for dialysis. He labs were obtained and did show a critical Potassium of 6.7, BUN 38, creatinine is 7.77. Nephrology is aware and will see the patient. The patient does complain of some nasal congestion and is requesting nasal spray. He is afebrile no further complaints. 07/27/18- patient is being seen examined and evaluated today on rounds. His labs are reviewed he does have a potassium of 6.8, BUN of 39, creatinine 7.53. Plan is for hemodialysis, nephrology following the patient closely. Cardiology is following with the patient as well. The patient has not been out of bed much stated he is feeling very weak. We will consult PT and OT. 07/28/18- patient is being seen examined and evaluated today on rounds. He continues to have a critical potassium of 6.1 which is being treated with his dialysis as he is a chronic dialysis patient. Nephro is following the patient closely. He is being switched over to inpatient due to his critical hyperkalemia and chronic kidney disease. He continues to have some chronic back pain. The patient was originally put on [place] 7.5 every 6 hours while he was here. It is verified with the patient's pharmacy as well as medical records that he is actually on [place] 10 mg every 6 hours so his pain medication will be adjusted back to his home dose. He is afebrile. Still complains of some intermittent chest pain. He did undergo dialysis yesterday and will go under dialysis again today. Objective - Vital Signs Vital signs: Vital Signs Temp 98.1 F 07/28/18 08:00 Pulse 65 07/28/18 08:00 Resp 18 07/28/18 08:00 BP 179/93 07/28/18 08:00 Pulse Ox 98 07/28/18 08:00 Intake & Output 07/27/18 07/28/18 07/28/18 18:59 06:59 18:59 Intake Total 520 300 240 Balance 520 300 240 Weight 64.7 kg Intake: Oral 520 300 240 Other: Voiding Method Toilet Toilet Toilet # Voids 1 1 - Exam GENERAL EXAM: Alert, comfortable in no apparent distress. HEAD: Normocephalic. EYES: Normal reaction of pupils, equal size. NOSE: Clear with pink turbinates. THROAT: No erythema or exudates. NECK: No masses, no JVD. CHEST: No chest wall deformity. Left chest dialysis catheter in place LUNGS: Equal air entry with no crackles, wheeze, rhonchi or dullness. Bases diminished CVS: S1 and S2 normal with no audible mumurs, regular rhythm. ABDOMEN: No hepatosplenomegaly, normal bowel sounds, no guarding or rigidity. EXTREMITIES: No edema noted, pedal pulses palpable. CENTRAL NERVOUS SYSTEM: No focal deficits, tone is normal in all 4 extremities. - Labs CBC & Chem 7: 07/28/18 05:31 07/28/18 05:31 Labs: Abnormal Lab Results - Last 24 Hours (Table) 07/28/18 07/28/18 Range/Units 05:31 05:31 RBC 3.77 L (4.30-5.90) m/uL Hgb 11.8 L (13.0-17.5) gm/dL Hct 37.2 L (39.0-53.0) % RDW 15.6 H (11.5-15.5) % Potassium 6.1 H* (3.5-5.1) mmol/L BUN 49 H (9-20) mg/dL Creatinine 8.27 H* (0.66-1.25) mg/dL Glucose 108 H (74-99) mg/dL Alkaline Phosphatase 255 H (38-126) U/L Assessment and Plan Assessment: Assessment Chest pain high likelihood of CAD Acute on chronic renal failure, end-stage on dialysis Hypertension Hyperkalemia Postnasal drip Nicotine dependence History of noncompliance in the past with dialysis and medications Plan Patient does require inpatient status Medications have been reviewed and will be continued as ordered. Continue to monitor electrolytes Dialysis per nephrology Continue to monitor electrolytes Critically high potassium being treated with dialysis Cardiology on consult Patient stress test pending Initiate and encourage incentive spirometer Nasal spray as requested Continue with pulmonary hygiene, coughing and deep breathing exercises, and supportive care. Supplemental oxygen to maintain oxygen saturations of 92% or better. Continue nebulizer treatments. GI and DVT prophylaxis. We will continue to monitor labs/results and adjust treatment as necessary. Further recommendations pending. I, the signing physician performed an examination of the patient, discussed and directed their management with the nurse practitioner. I have reviewed the nurse practitioner's note and agree with the documented findings, orders and plan of care. Nurse practitioner acting as a scribe for the signing physician. Please note we are covering for Dr. Justin Romano.
--- NOTE | 2018-07-28 14:33 | CDI ---
Documentation Clarification Form Date: 07/28/2018 2:07:14 PM From: Monica Way RN CCDS Admit Date: 07/28/2018 10:53:00 AM Patient Name: Edgar Guillen Visit Number: [id number] Discharge Date: ATTENTION: The Clinical Documentation Specialists (CDI) and [facility] Coding Staff appreciate your assistance in clarifying documentation. Please respond to the clarification below the line at the bottom and electronically sign. The CDI & [facility] Coding staff will review the response and follow-up if needed. Please note: Queries are made part of the Legal Health Record. If you have any questions, please contact the author of this message via ITS. Dr. Nicole Montague Chronic back pain is documented in your progress note dated 07/28/2018 Patient history/risk factors: 67 year old male presents to the ED with for chest pain. Medical hx ESRD on Hemodialysis, HTN, Chronic back pain. Clinical Indicators: while admitted patients pain scale intensity has been as low as 5 and as high as nine and receiving [place] 7.5 / 325 daily. Per your progress note dated on 07/28/2018 "The patient was originally put on [place] 7.5 every 6 hours while he was here. It is verified with the patient's pharmacy as well as medical records that he is actually on [place] 10 mg every 6 hours so his pain medication " Vital Signs: 179/93 65 98.1 98% Medication: [place] 7.5 / 325 while inpatient changed to home medication [place] 10/ 325 In order to capture the severity of condition, if possible and in your professional opinion, please clarify the following: Abused Substance and specify type of known: Opioids Dependence Opiod Use Other, please specify Unable to determine (Last Revision: March 2017) Chronic back pain with opioid use MTDD
[2018-07-28] MEDS: HYDROcodone/APAP 10-325MG 1 EACH TAB PO PRN ×2 (15:05→20:27)
[2018-07-28] MEDS: SEVELAMER 800 MG TAB PO SCH ×3 (15:06→22:23)
[2018-07-28] MEDS: cloNIDine HCL 0.2 MG TAB PO SCH ×3 (17:17→20:27)
[2018-07-28] MEDS: amLODIPine 10 MG TAB PO SCH (17:17)
[2018-07-28] MEDS: ASPIRIN 81 MG PO SCH (17:17)
[2018-07-28] MEDS: FOLIC ACID-VIT B COMPLEX-VIT C 1 CAP PO SCH (17:18)
[2018-07-28] MEDS: HEPARIN SODIUM,PORCINE 5,000 UNIT/ML 1 ML VIAL SQ SCH ×2 (17:18→20:28)
[2018-07-28] MEDS: ISOSORBIDE MONONITRATE ER 30 MG TAB.ER.24H PO SCH (17:18)
[2018-07-28] MEDS: FAMOTIDINE 20 MG TAB PO SCH (17:18)
--- NOTE | 2018-07-28 19:14 | PN ---
PROGRESS NOTE The patient is seen for followup for end-stage renal disease. Over the past 3 days, patient has had persistent hyperkalemia. He has been dialyzed almost on a daily basis. His potassium yesterday was 6.8, today it is 6.1. Serum creatinine did not decrease. It was at 7.5 yesterday and is at 8.27 today. The patient has an IJ catheter which had some difficulty and it was done in reverse. I feel there may be recirculation. The patient will be dialyzed again today and I have asked vascular surgery to replace his IJ catheter. This morning, patient denies any significant complaints. Blood pressure this morning was 179/93, heart rate 65 per minute. Patient is afebrile. Examination of the heart S1, S2. Examination of the lungs bilateral breath sounds are heard. Abdomen is soft, nontender. Examination of lower extremities shows no significant edema. ADVANCED MANUFACTURING ASSOCIATE exam is grossly intact. LAB: Shows sodium 139, potassium 6.1, chloride 104, BUN 49, serum creatinine 8.27, hemoglobin 11.8. ASSESSMENT: 1. End-stage renal disease, on hemodialysis on a Thursday, , Thursday schedule, currently getting almost daily dialysis secondary to persistent hyperkalemia. There may be an element of recirculation in the catheter and it was not functioning well and had to be reversed. I have discussed with Dr. Heath. We will get the catheter changed. Hopefully by tomorrow. 2. Hyperkalemia, most likely related to inadequate dialysis with poorly functioning catheter. The patient will be dialyzed again today and we will repeat labs in a.m. 3. Chest pain, currently resolved. Stress test was negative. 4. Chronic kidney disease mineral bone disorder. 5. Hypertension. Blood pressure remains elevated. I will continue with the Norvasc and the clonidine for now. We will add BÁRBARA inhibitors once the hyperkalemia has improved. MMODL / IJN: [id number] /
[2018-07-29] MEDS: HYDROcodone/APAP 10-325MG 1 EACH TAB PO PRN ×4 (03:33→21:50)
[2018-07-29] MEDS: cloNIDine HCL 0.2 MG TAB PO SCH ×3 (09:20→21:45)
[2018-07-29] MEDS: amLODIPine 10 MG TAB PO SCH (09:20)
[2018-07-29] MEDS: ASPIRIN 81 MG PO SCH (09:20)
[2018-07-29] MEDS: ISOSORBIDE MONONITRATE ER 30 MG TAB.ER.24H PO SCH (09:21)
[2018-07-29] MEDS: SEVELAMER 800 MG TAB PO SCH ×3 (09:21→21:46)
[2018-07-29] MEDS: FAMOTIDINE 20 MG TAB PO SCH (09:21)
[2018-07-29] MEDS: FOLIC ACID-VIT B COMPLEX-VIT C 1 CAP PO SCH (09:21)
[2018-07-29 09:24] LABS: Basophils # (A) 0.1 k/uL (0-0.2); Basophils % (A) 1 %; Eosinophils # (A) 0.4 k/uL (0-0.7); Eosinophils % (A) 9 %; HCT 38.3 % (39.0-53.0); HGB 12.4 gm/dL (13.0-17.5); Lymphocytes # (A) 1.4 k/uL (1.0-4.8); Lymphocytes % (A) 29 %; MCH 31.6 pg (25.0-35.0); MCHC 32.4 g/dL (31.0-37.0); MCV 97.6 fL (80.0-100.0); Mean Platelet Volume 6.9; Monocytes # (A) 0.4 k/uL (0-1.0); Monocytes % (A) 8 %; Neutrophils # (A) 2.4 k/uL (1.3-7.7); Neutrophils % (A) 49 %; Platelet Count 223 k/uL (150-450); RBC 3.92 m/uL (4.30-5.90); RDW 15.6 % (11.5-15.5); WBC 4.9 k/uL (3.8-10.6)
[2018-07-29] MEDS: HEPARIN SODIUM,PORCINE 5,000 UNIT/ML 1 ML VIAL SQ SCH ×2 (09:28→21:47)
[2018-07-29 09:40] LABS: Albumin 3.9 g/dL (3.5-5.0); Calcium 9.7 mg/dL (8.4-10.2); Potassium 5.5 mmol/L (3.5-5.1); Total Bilirubin 0.5 mg/dL (0.2-1.3); Total Protein 7.4 g/dL (6.3-8.2)
--- NOTE | 2018-07-29 10:46 | P.PN ---
Subjective Progress Note Date: 07/29/18 Interval History: 07/26/18- This is a 67-year-old male patient being seen examined and evaluated today while covering for Dr. Justin Romano. He has a known history of chronic renal failure and is currently on dialysis in the outpatient setting he does go on Tuesdays and Saturdays. He did develop chest pain while at the dialysis center and came into the emergency room for further evaluation and treatment. Cardiology is following the patient and he will be undergoing a stress test. Nephrology has been consulted for dialysis. He labs were obtained and did show a critical Potassium of 6.7, BUN 38, creatinine is 7.77. Nephrology is aware and will see the patient. The patient does complain of some nasal congestion and is requesting nasal spray. He is afebrile no further complaints. 07/27/18- patient is being seen examined and evaluated today on rounds. His labs are reviewed he does have a potassium of 6.8, BUN of 39, creatinine 7.53. Plan is for hemodialysis, nephrology following the patient closely. Cardiology is following with the patient as well. The patient has not been out of bed much stated he is feeling very weak. We will consult PT and OT. 07/28/18- patient is being seen examined and evaluated today on rounds. He continues to have a critical potassium of 6.1 which is being treated with his dialysis as he is a chronic dialysis patient. Nephro is following the patient closely. He is being switched over to inpatient due to his critical hyperkalemia and chronic kidney disease. He continues to have some chronic back pain. The patient was originally put on [place] 7.5 every 6 hours while he was here. It is verified with the patient's pharmacy as well as medical records that he is actually on [place] 10 mg every 6 hours so his pain medication will be adjusted back to his home dose. He is afebrile. Still complains of some intermittent chest pain. He did undergo dialysis yesterday and will go under dialysis again today. 07/29/18- patient is being seen examined and evaluated today on rounds while covering for Dr. Justin Romano. The patient will potentially be undergoing insertion of a new dialysis catheter, per nephrology's recommendations. Today his potassium is 5.5, BUN is 39, creatinine is 6.27. He denies any chest pain today. Afebrile no further complaints. Objective - Vital Signs Vital signs: Vital Signs Temp 98.3 F 07/29/18 08:08 Pulse 75 07/29/18 08:08 Resp 12 07/29/18 08:08 BP 197/107 07/29/18 08:08 Pulse Ox 95 07/29/18 08:08 Intake & Output 07/28/18 07/29/18 07/29/18 18:59 06:59 18:59 Intake Total 480 360 Balance 480 360 Weight 64.8 kg Intake: Oral 480 360 Other: Voiding Method Toilet Toilet Toilet # Voids 3 0 # Bowel Movements 1 - Exam GENERAL EXAM: Alert, comfortable in no apparent distress. HEAD: Normocephalic. EYES: Normal reaction of pupils, equal size. NOSE: Clear with pink turbinates. THROAT: No erythema or exudates. NECK: No masses, no JVD. CHEST: No chest wall deformity. Left chest dialysis catheter in place LUNGS: Equal air entry with no crackles, wheeze, rhonchi or dullness. Bases diminished CVS: S1 and S2 normal with no audible mumurs, regular rhythm. ABDOMEN: No hepatosplenomegaly, normal bowel sounds, no guarding or rigidity. EXTREMITIES: No edema noted, pedal pulses palpable. CENTRAL NERVOUS SYSTEM: No focal deficits, tone is normal in all 4 extremities. - Labs CBC & Chem 7: 07/29/18 07:54 07/29/18 07:54 Labs: Abnormal Lab Results - Last 24 Hours (Table) 07/29/18 07/29/18 Range/Units 07:54 07:54 RBC 3.92 L (4.30-5.90) m/uL Hgb 12.4 L (13.0-17.5) gm/dL Hct 38.3 L (39.0-53.0) % RDW 15.6 H (11.5-15.5) % Potassium 5.5 H (3.5-5.1) mmol/L BUN 39 H (9-20) mg/dL Creatinine 6.27 H (0.66-1.25) mg/dL Glucose 106 H (74-99) mg/dL Alkaline Phosphatase 278 H (38-126) U/L Assessment and Plan Assessment: Assessment Chest pain high likelihood of CAD Acute on chronic renal failure, end-stage on dialysis Hypertension Hyperkalemia Postnasal drip Nicotine dependence History of noncompliance in the past with dialysis and medications Plan Patient does require inpatient status Potentially having a dialysis catheter change with vascular surgery per nephrology Medications have been reviewed and will be continued as ordered. Continue to monitor electrolytes Dialysis per nephrology Continue to monitor electrolytes Critically high potassium being treated with dialysis Cardiology on consult Patient stress test pending Initiate and encourage incentive spirometer Nasal spray as requested Continue with pulmonary hygiene, coughing and deep breathing exercises, and supportive care. Supplemental oxygen to maintain oxygen saturations of 92% or better. Continue nebulizer treatments. GI and DVT prophylaxis. We will continue to monitor labs/results and adjust treatment as necessary. Further recommendations pending. I, the signing physician performed an examination of the patient, discussed and directed their management with the nurse practitioner. I have reviewed the nurse practitioner's note and agree with the documented findings, orders and plan of care. Nurse practitioner acting as a scribe for the signing physician. Please note we are covering for Dr. Justin Romano.
--- NOTE | 2018-07-29 13:41 | P.PN ---
Subjective Patient is seen in follow-up for end-stage renal disease. He is maintained on hemodialysis on a Thursday schedule. He did undergoing daily dialysis due to hyperkalemia. Currently seeing what undergoing hemodialysis. Potassium level was 5.5 today. Patient has no active complaints. Vital signs are stable. General: The patient appeared well nourished and normally developed. HEENT: Head exam is unremarkable. Neck is without jugular venous distension. LUNGS: Lungs are clear to auscultation and percussion. Breath sounds decreased. HEART: Rate and Rhythm are regular. First and second heart sounds normal. No murmurs, rubs or gallops. ABDOMEN: Abdominal exam reveals normal bowel sounds. Non-tender and non- distended. No evidence of peritonitis. EXTREMITITES: No clubbing, cyanosis, or edema. Objective - Vital Signs Vital signs: Vital Signs Temp 98.5 F 07/29/18 12:00 Pulse 67 07/29/18 12:00 Resp 16 07/29/18 12:00 BP 136/83 07/29/18 12:00 Pulse Ox 95 07/29/18 08:08 Intake & Output 07/28/18 07/29/18 07/29/18 18:59 06:59 18:59 Intake Total 480 720 Output Total 300 Balance 480 420 Weight 64.8 kg Intake: Oral 480 720 Output: Urine 300 Other: Voiding Method Toilet Toilet Toilet # Voids 3 0 1 # Bowel Movements 1 1 - Labs CBC & Chem 7: 07/29/18 07:54 07/29/18 07:54 Labs: Abnormal Lab Results - Last 24 Hours (Table) 07/29/18 07/29/18 Range/Units 07:54 07:54 RBC 3.92 L (4.30-5.90) m/uL Hgb 12.4 L (13.0-17.5) gm/dL Hct 38.3 L (39.0-53.0) % RDW 15.6 H (11.5-15.5) % Potassium 5.5 H (3.5-5.1) mmol/L BUN 39 H (9-20) mg/dL Creatinine 6.27 H (0.66-1.25) mg/dL Glucose 106 H (74-99) mg/dL Alkaline Phosphatase 278 H (38-126) U/L Assessment and Plan Plan: Assessment: 1. End-stage renal disease maintained on hemodialysis on a Thursday schedule. Patient has a permacath. 2. Persistent hyperkalemia secondary to chronic kidney disease. Concern for recirculation. 3. Hypertension with chronic kidney disease. Controlled. 4. Anemia of chronic kidney disease maintained on Aranesp. 5. Chronic kidney disease mineral bone disease maintained on Renvela. Plan: Currently seen while undergoing hemodialysis. Consults vascular surgery for potential catheter replacement. Repeat electrolytes in the morning.
[2018-07-30] MEDS: HYDROcodone/APAP 10-325MG 1 EACH TAB PO PRN ×3 (03:27→17:06)
[2018-07-30 06:53] LABS: Basophils # (A) 0.1 k/uL (0-0.2); Basophils % (A) 1 %; Eosinophils # (A) 0.4 k/uL (0-0.7); Eosinophils % (A) 8 %; HCT 33.4 % (39.0-53.0); Lymphocytes # (A) 1.6 k/uL (1.0-4.8); Lymphocytes % (A) 37 %; MCH 31.8 pg (25.0-35.0); MCHC 32.9 g/dL (31.0-37.0); MCV 96.8 fL (80.0-100.0); Mean Platelet Volume 6.7; Monocytes # (A) 0.5 k/uL (0-1.0); Monocytes % (A) 12 %; Neutrophils # (A) 1.8 k/uL (1.3-7.7); Neutrophils % (A) 39 %; Platelet Count 225 k/uL (150-450); RBC 3.45 m/uL (4.30-5.90); RDW 15.5 % (11.5-15.5); WBC 4.5 k/uL (3.8-10.6)
[2018-07-30 07:41] LABS: Albumin 3.5 g/dL (3.5-5.0); Calcium 9.3 mg/dL (8.4-10.2); Potassium 5.3 mmol/L (3.5-5.1); Total Bilirubin 0.5 mg/dL (0.2-1.3); Total Protein 6.6 g/dL (6.3-8.2)
[2018-07-30] MEDS: HEPARIN SODIUM,PORCINE 5,000 UNIT/ML 1 ML VIAL SQ SCH ×2 (07:45→22:16)
[2018-07-30] MEDS: amLODIPine 10 MG TAB PO SCH (07:51)
[2018-07-30] MEDS: cloNIDine HCL 0.2 MG TAB PO SCH ×3 (07:52→22:18)
[2018-07-30] MEDS: ASPIRIN 81 MG PO SCH (07:52)
[2018-07-30] MEDS: FAMOTIDINE 20 MG TAB PO SCH (07:52)
[2018-07-30] MEDS: ISOSORBIDE MONONITRATE ER 30 MG TAB.ER.24H PO SCH (07:54)
[2018-07-30] MEDS: FOLIC ACID-VIT B COMPLEX-VIT C 1 CAP PO SCH (07:54)
[2018-07-30] MEDS: SEVELAMER 800 MG TAB PO SCH ×3 (07:54→22:18)
--- NOTE | 2018-07-30 12:09 | P.PN ---
<Ruth Schulte E - Last Filed: 07/30/18 12:06> Subjective Progress Note Date: 07/30/18 Interval History: 07/26/18- This is a 67-year-old male patient being seen examined and evaluated today while covering for Dr. Justin Romano. He has a known history of chronic renal failure and is currently on dialysis in the outpatient setting he does go on Tuesdays and Saturdays. He did develop chest pain while at the dialysis center and came into the emergency room for further evaluation and treatment. Cardiology is following the patient and he will be undergoing a stress test. Nephrology has been consulted for dialysis. He labs were obtained and did show a critical Potassium of 6.7, BUN 38, creatinine is 7.77. Nephrology is aware and will see the patient. The patient does complain of some nasal congestion and is requesting nasal spray. He is afebrile no further complaints. 07/27/18- patient is being seen examined and evaluated today on rounds. His labs are reviewed he does have a potassium of 6.8, BUN of 39, creatinine 7.53. Plan is for hemodialysis, nephrology following the patient closely. Cardiology is following with the patient as well. The patient has not been out of bed much stated he is feeling very weak. We will consult PT and OT. 07/28/18- patient is being seen examined and evaluated today on rounds. He continues to have a critical potassium of 6.1 which is being treated with his dialysis as he is a chronic dialysis patient. Nephro is following the patient closely. He is being switched over to inpatient due to his critical hyperkalemia and chronic kidney disease. He continues to have some chronic back pain. The patient was originally put on [place] 7.5 every 6 hours while he was here. It is verified with the patient's pharmacy as well as medical records that he is actually on [place] 10 mg every 6 hours so his pain medication will be adjusted back to his home dose. He is afebrile. Still complains of some intermittent chest pain. He did undergo dialysis yesterday and will go under dialysis again today. 07/29/18- patient is being seen examined and evaluated today on rounds while covering for Dr. Justin Romano. The patient will potentially be undergoing insertion of a new dialysis catheter, per nephrology's recommendations. Today his potassium is 5.5, BUN is 39, creatinine is 6.27. He denies any chest pain today. Afebrile no further complaints. 07/30/18- patient is being seen examined and evaluated today while covering for Dr. Justin Romano. The patient was also go for a new dialysis catheter however that did not happen yesterday so therefore the procedure as well as to take place today. Today his potassium is 5.3, BUN 45, creatinine is 58. Continues to be followed closely with nephrology. He is afebrile. Denies any chest pain currently. All labs and reports reviewed. Objective - Vital Signs Vital signs: Vital Signs Temp 98.6 F 07/30/18 08:33 Pulse 69 07/30/18 08:33 Resp 18 07/30/18 08:33 BP 146/80 07/30/18 08:33 Pulse Ox 93 L 07/30/18 08:33 Intake & Output 07/29/18 07/30/18 07/30/18 18:59 06:59 18:59 Intake Total 960 250 Output Total 300 0 300 Balance 660 0 -50 Weight 63.6 kg Intake: IV 10 Invasive Line 3 10 Oral 960 240 Output: Urine 300 0 300 Other: Voiding Method Toilet Toilet Toilet # Voids 1 1 # Bowel Movements 1 - Exam GENERAL EXAM: Alert, comfortable in no apparent distress. HEAD: Normocephalic. EYES: Normal reaction of pupils, equal size. NOSE: Clear with pink turbinates. THROAT: No erythema or exudates. NECK: No masses, no JVD. CHEST: No chest wall deformity. Left chest dialysis catheter in place LUNGS: Equal air entry with no crackles, wheeze, rhonchi or dullness. Bases diminished CVS: S1 and S2 normal with no audible mumurs, regular rhythm. ABDOMEN: No hepatosplenomegaly, normal bowel sounds, no guarding or rigidity. EXTREMITIES: No edema noted, pedal pulses palpable. CENTRAL NERVOUS SYSTEM: No focal deficits, tone is normal in all 4 extremities. - Labs CBC & Chem 7: 07/30/18 06:05 07/30/18 06:05 Labs: Abnormal Lab Results - Last 24 Hours (Table) 07/30/18 07/30/18 Range/Units 06:05 06:05 RBC 3.45 L (4.30-5.90) m/uL Hgb 11.0 L (13.0-17.5) gm/dL Hct 33.4 L (39.0-53.0) % Potassium 5.3 H (3.5-5.1) mmol/L BUN 45 H (9-20) mg/dL Creatinine 5.81 H (0.66-1.25) mg/dL Alkaline Phosphatase 233 H (38-126) U/L Assessment and Plan Assessment: Assessment Chest pain high likelihood of CAD Acute on chronic renal failure, end-stage on dialysis Hypertension Hyperkalemia Postnasal drip Nicotine dependence History of noncompliance in the past with dialysis and medications Plan Patient does require inpatient status Potentially having a dialysis catheter change with vascular surgery per nephrology Medications have been reviewed and will be continued as ordered. Continue to monitor electrolytes Dialysis per nephrology Continue to monitor electrolytes Critically high potassium being treated with dialysis Cardiology on consult Patient stress test pending Initiate and encourage incentive spirometer Nasal spray as requested Continue with pulmonary hygiene, coughing and deep breathing exercises, and supportive care. Supplemental oxygen to maintain oxygen saturations of 92% or better. Continue nebulizer treatments. GI and DVT prophylaxis. We will continue to monitor labs/results and adjust treatment as necessary. Further recommendations pending. I, the signing physician performed an examination of the patient, discussed and directed their management with the nurse practitioner. I have reviewed the nurse practitioner's note and agree with the documented findings, orders and plan of care. Nurse practitioner acting as a scribe for the signing physician. Please note we are covering for Dr. Justin Romano. <Nicole Montague A - Last Filed: 07/30/18 15:34> Objective - Vital Signs Vital signs: Vital Signs Temp 97.7 F 07/30/18 12:05 Pulse 53 L 07/30/18 12:05 Resp 16 07/30/18 12:05 BP 130/72 07/30/18 12:05 Pulse Ox 96 07/30/18 12:05 Intake & Output 07/29/18 07/30/18 07/30/18 18:59 06:59 18:59 Intake Total 960 260 Output Total 300 0 300 Balance 660 0 -40 Weight 63.6 kg 63.6 kg Intake: IV 20 Invasive Line 3 20 Oral 960 240 Output: Urine 300 0 300 Other: Voiding Method Toilet Toilet Urinal # Voids 1 1 # Bowel Movements 1 - Labs CBC & Chem 7: 07/30/18 06:05 07/30/18 06:05 Labs: Abnormal Lab Results - Last 24 Hours (Table) 07/30/18 07/30/18 Range/Units 06:05 06:05 RBC 3.45 L (4.30-5.90) m/uL Hgb 11.0 L (13.0-17.5) gm/dL Hct 33.4 L (39.0-53.0) % Potassium 5.3 H (3.5-5.1) mmol/L BUN 45 H (9-20) mg/dL Creatinine 5.81 H (0.66-1.25) mg/dL Alkaline Phosphatase 233 H (38-126) U/L Assessment and Plan Plan: Patient seen and examined. Plan for HD catheter placement today. Hemodialysis tomorrow per Nephrology. Discharge after dialysis tomorrow. ~Nicole Montague DO
[2018-07-30 12:32] VITALS: PULSE 60
[2018-07-30 13:54] VITALS: BMI 21.9
--- NOTE | 2018-07-30 14:25 | PN ---
PROGRESS NOTE Patient is seen for followup for end-stage renal disease. He has had issues with his catheter and was not getting adequate treatment. He is scheduled for change of his catheter today. Potassium had remained persistently elevated. It is now improved and patient will be dialyzed tomorrow on his regular schedule. PHYSICAL EXAMINATION: Blood pressure is 130/72, heart rate 53 per minute. He is afebrile. Examination of the heart, S1, S2. Examination of the lungs, bilateral breath sounds are heard. Abdomen is soft, nontender. Examination of the lower extremities shows no evidence of edema. BULK SEALER exam is grossly intact. LABS: Show sodium 130, potassium 5.3, BUN 45, serum creatinine 5.8, hemoglobin 11.0 g/dL. ASSESSMENT: 1. End-stage renal disease, on hemodialysis on a Thursday, , Thursday schedule. 2. Hyperkalemia initially with very little improvement. Currently much improved. However, patient's catheter has not been working well and he is scheduled for new catheter placement today. 3. Clotted AV graft in the right upper arm. Patient will need a thrombectomy. 4. Chest pain on admission, currently resolved. Stress test was negative. PLAN: Hemodialysis tomorrow with new catheter. Patient could be discharged after his catheter placement and have his dialysis as outpatient tomorrow. MMODL / IJN: [id number] /
[2018-07-30] MEDS ORDERED: ceFAZolin IN SWFI 2 GM/20 ML SYRINGE IVP STA (14:45)
[2018-07-30] MEDS ORDERED: SODIUM CHLORIDE 0.9% 500 ML 500 ML IV ONE (15:20)
[2018-07-30] MEDS ORDERED: LIDOCAINE 1% INJ 10MG/ML (20 ML MDV) SQ ONE ×2 (15:27→15:40)
[2018-07-30] MEDS ORDERED: MIDAZOLAM 2 MG/2 ML VIAL IV ONE (15:30)
[2018-07-30] MEDS ORDERED: fentaNYL (PF) 50 MCG/ML 2 ML AMP IV ONE (15:30)
[2018-07-30] MEDS ORDERED: HEPARIN SODIUM 1,000 UN/ML (10ML VL) MISCELLANE ONE (16:10)
--- NOTE | 2018-07-30 16:37 | CONS ---
CONSULTATION The patient is known to me from the past. Patient with history of chronic failure. The patient has been admitted to [facility] with high potassium. The patient has a catheter. The left IJ is not working. I was consulted for change of dialysis catheter. PAST HISTORY: Patient has bilateral upper arm [place] graft placed in the past. He had dialysis long time and graft has been occluded. He lost follow up in my office for further evaluation. MEDICAL HISTORY: History of chronic renal failure, history of hypertension, history of chronic anemia. PHYSICAL EXAMINATION: On examination the patient was seen in his room. Neck is supple. Trachea central. Chest clear to auscultation. Abdomen is soft. The patient has both upper arm graft which has been occluded. PLAN: Change of dialysis catheter. Risks and complications of bleeding, infection, thrombosis has been discussed. Thank you very much for the consult. DELGADO / MARYCRUZ: [id number] /
--- NOTE | 2018-07-30 17:19 | OP ---
OPERATIVE REPORT PREOPERATIVE DIAGNOSIS: Acute malfunction of left IJ catheter. PROCEDURE: Attempted right IJ. Right IJ is occluded. Then left side of the chest and catheter was prepped in usual sterile manner with 1% lidocaine infiltrated. A small incision was made at the neck area. IJ catheter was divided and we passed a Glidewire under fluoroscopy with good control. The tip of the catheter was in the inferior vena cava. After that we created a tunnel, and through the tunnel we brought a 28 cm dialysis pre- curved catheter. Dilator was advanced and after that we advanced the catheter on the top of the Glidewire, which was at the junction of superior vena cava and atrium, flushed with heparin saline and Hep-locked. Incision was closed with Vicryl and old catheter was removed. Dressing was applied. Patient tolerated the procedure well. DELGADO / MARYCRUZ: [id number] /
[2018-07-30] MEDS ORDERED: HYDROmorphone 1 MG/ML 1 ML SYRINGE IVP PRN (21:31)
[2018-07-31 00:19] VITALS: RESP 18
[2018-07-31] MEDS: HYDROcodone/APAP 10-325MG 1 EACH TAB PO PRN ×2 (00:48→06:35)
[2018-07-31] MEDS: cloNIDine HCL 0.2 MG TAB PO SCH (11:18)
[2018-07-31] MEDS: ISOSORBIDE MONONITRATE ER 30 MG TAB.ER.24H PO SCH (11:18)
[2018-07-31] MEDS: FAMOTIDINE 20 MG TAB PO SCH (11:18)
[2018-07-31] MEDS: amLODIPine 10 MG TAB PO SCH (11:19)
[2018-07-31] MEDS: ASPIRIN 81 MG PO SCH (11:19)
[2018-07-31] MEDS: SEVELAMER 800 MG TAB PO SCH (11:19)
[2018-07-31] MEDS: HEPARIN SODIUM,PORCINE 5,000 UNIT/ML 1 ML VIAL SQ SCH (11:19)
[2018-07-31] MEDS: FOLIC ACID-VIT B COMPLEX-VIT C 1 CAP PO SCH (11:19)
[2018-07-31 11:23] VITALS: BP 140/84; TEMP 98.2
--- NOTE | 2018-07-31 11:29 | P.PN ---
Subjective Patient is seen in follow-up for end-stage renal disease. He is maintained on hemodialysis on a Thursday schedule. Tolerated hemodialysis well this morning. Patient had his permacath exchanged. No active complaints at this time. Scheduled for discharge today. Vital signs are stable. General: The patient appeared well nourished and normally developed. HEENT: Head exam is unremarkable. Neck is without jugular venous distension. LUNGS: Lungs are clear to auscultation and percussion. Breath sounds decreased. HEART: Rate and Rhythm are regular. First and second heart sounds normal. No murmurs, rubs or gallops. ABDOMEN: Abdominal exam reveals normal bowel sounds. Non-tender and non- distended. No evidence of peritonitis. EXTREMITITES: No clubbing, cyanosis, or edema. Objective - Vital Signs Vital signs: Vital Signs Temp 98.2 F 07/31/18 11:15 Pulse 53 L 07/30/18 12:05 Resp 18 07/31/18 11:23 BP 140/84 07/31/18 11:15 Pulse Ox 95 07/31/18 11:15 Intake & Output 07/30/18 07/31/18 07/31/18 18:59 06:59 18:59 Intake Total 560 10 240 Output Total 300 0 1291 Balance 260 10 -1051 Weight 63.6 kg 63 kg Intake: IV 60 10 0.9 10 Invasive Line 3 30 Oral 500 240 Output: Urine 300 0 Other 1291 Other: Voiding Method Urinal Urinal Urinal # Voids 0 - Labs CBC & Chem 7: 07/30/18 06:05 07/30/18 06:05 Assessment and Plan Plan: Assessment: 1. End-stage renal disease maintained on hemodialysis on a Thursday schedule. Patient has a permacath. 2. Persistent hyperkalemia secondary to chronic kidney disease. Concern for recirculation. Better. Status post exchange of permacath. 3. Hypertension with chronic kidney disease. Controlled. 4. Anemia of chronic kidney disease maintained on Aranesp. 5. Chronic kidney disease mineral bone disease maintained on Renvela. Plan: Next hemodialysis on Thursday. Stable to be discharged home from nephrology standpoint.
[2018-07-31 12:29] LABS: Calcium 9.1 mg/dL (8.4-10.2); Potassium 4.2 mmol/L (3.5-5.1)
[2018-07-31 12:32] LABS: Basophils # (A) 0.1 k/uL (0-0.2); Basophils % (A) 1 %; Eosinophils # (A) 0.3 k/uL (0-0.7); Eosinophils % (A) 6 %; HGB 11.8 gm/dL (13.0-17.5); Hypochromasia Slight; Lymphocytes # (A) 1.4 k/uL (1.0-4.8); Lymphocytes % (A) 30 %; MCH 31.1 pg (25.0-35.0); MCV 100.3 fL (80.0-100.0); Macrocytosis Slight; Mean Platelet Volume 7.5; Monocytes # (A) 0.4 k/uL (0-1.0); Monocytes % (A) 8 %; Neutrophils # (A) 2.3 k/uL (1.3-7.7); Neutrophils % (A) 51 %; Platelet Count 243 k/uL (150-450); RBC 3.78 m/uL (4.30-5.90); RDW 15.4 % (11.5-15.5); WBC 4.5 k/uL (3.8-10.6)
--- NOTE | 2018-07-31 13:28 | P.DS ---
Providers Date of admission: 07/28/18 10:53 Expected date of discharge: 07/31/18 Attending physician: Justin Romano Consults: 07/24/18 18:33 Consult Physician Urgent Consulting Provider: Shayy Braxton Consult Reason/Comments: cp Do you want consulting provider notified?: Yes 07/26/18 09:20 Consult Physician Routine Consulting Provider: Ruby Mccurdy Consult Reason/Comments: dialysis patient Do you want consulting provider notified?: Yes 07/30/18 07:14 Consult Physician Routine Consulting Provider: Theron Heath Consult Reason/Comments: HD patient' catheter not functioning Do you want consulting provider notified?: Yes Primary care physician: [facility] Course: This is a 67-year-old gentleman who presented emergency department complaining of chest pain. He did have some shortness of breath. The patient has a known history of end-stage renal disease on hemodialysis. The patient was found to have elevated potassium at 6.7. Nephrology was consult it. The patient went underwent multiple sessions of hemodialysis without improvement in his potassium and creatinine. Vascular surgery was consulted to replace the patient 's hemodialysis catheter as it appeared to not be functioning well. This was done and the patient received dialysis with improvement of his labs. On the day of discharged the patient did have hemodialysis. His potassium was down to 4.2. The patient was also evaluated by the cardiology team. The patient underwent dobutamine echocardiogram that was negative for any reversible ischemia. On the day of discharge the patient left AGAINST MEDICAL ADVICE because he stated he could not wait 10 more minutes for the discharge paperwork to be completed. Procedures: Placement of left internal jugular hemodialysis catheter Dobutamine stress echocardiogram Patient Condition at Discharge: Stable Plan - Discharge Summary New Discharge Prescriptions: Continue Folic Acid-Vit B Complex-Vit C [Nephrocaps] 1 cap PO DAILY Sevelamer [Renvela] 1,600 mg PO TID amLODIPine [Norvasc] 10 mg PO DAILY cloNIDine HCL [Catapres] 0.2 mg PO TID HYDROcodone/APAP 10-325MG [Masterson 10-325] 1 tablet PO Q6HR PRN PRN Reason: Pain Discharge Medication List Folic Acid-Vit B Complex-Vit C [Nephrocaps] 1 cap PO DAILY 06/16/18 [History] Sevelamer [Renvela] 1,600 mg PO TID 06/16/18 [History] amLODIPine [Norvasc] 10 mg PO DAILY 07/24/18 [History] cloNIDine HCL [Catapres] 0.2 mg PO TID 07/24/18 [History] HYDROcodone/APAP 10-325MG [Masterson 10-325] 1 tablet PO Q6HR PRN 07/28/18 [History] Follow up Appointment(s)/Referral(s): [facility] [Provider Group] - 1 Week Justin Romano MD [Primary Care Provider] - 08/12/18 11:15 am () Ruby Mccurdy MD [STAFF PHYSICIAN] - 1 Week Patient Instructions/Handouts: Chest Pain (DC) Discharge Disposition: Left Against Medical Advice
--- NOTE | 2018-08-02 08:53 | IR ---
Fluoroscopy HISTORY: Dialysis catheter placement 3.4 minutes fluoroscopy time supplied to the referring clinician. 578 intraoperative C-arm images do cument the procedure. See dictated report from vascular surgery.
--- NOTE | 2018-08-04 09:10 | CDI ---
Documentation Clarification Form Date: 08/04/18 From: Sofía Greenfield Phone: If you have a question regarding this query, please contact Jasmine Read at [phone] between 8am and 5pm. Admit Date: 07/28/2018 10:53:00 AM Patient Name: Edgar Guillen Visit Number: [id number] Discharge Date: 07/31/2018 12:31:00 PM ATTENTION: The Clinical Documentation Specialists (CDI) and [facility] Coding Staff appreciate your assistance in clarifying documentation. Please respond to the clarification below the line at the bottom and electronically sign. The CDI & [facility] Coding staff will review the response and follow-up if needed. Please note: Queries are made part of the Legal Health Record. If you have any questions, please contact the author of this message via ITS. Dr. Nicole Montague The patient presented with chest pain and admitted to observation. The patient was switched to inpatient due to critical hyperkalemia and chronic kidney disease. The patient was found to have a poorly functioning dialysis catheter. History/Risk Factors: The patient has a history of end-stage renal disease and is on hemodialysis. The patientt also has HTN, anemia of CKD and chronic back pain. Clinical Indicators: Elevated potassium levels Lab findings: 6.7 on 07/26 Vital Signs: T. 98.7, P. 94, R. 18, BP 174/102 Treatment: Insertion of a new dialysis catheter with removal of the old one. Hemodialysis on 07/28, 07/29 adn 07/31. Consults: Documentation in the 07/28 nephrology progress note states hyperkalemia most likely related to inadequate dialysis with poorly functioning catheter. Documentation in Dr. Torres's 07/29 and 07/31 progress notes state that the hyperkalemia is secondary to chronic kidney disease. In your professional opinion, can you please clarify the etiology of the hyperkalemia? X Poorly functioning dialysis catheter Chronic Kidney Disease Other, please specify Unable to determine Please clarify if the poorly functioning dialysis catheter was POA: __x__Y = Yes, the condition was present at the time of the order for inpatient admission. ____N = No, the condition was not present at the time of the order for inpatient admission. ____W = Clinically undetermined if the condition was present at the time of the order for inpatient admission. MTD
== END 2018-07-31 12:31 | disposition left against medical advice (07) | DRG 314 ==
LOC: EC 16:30 → 3SCARD 18:33 → OBSVTOIN 07-28 10:53
PROVIDERS: ADMIT Family Medicine; ATTEND Family Medicine
PROC: 5A1D70Z Performance of Urinary Filtration, Intermittent, Less than 6 Hours Per Day (ICD-10-PCS; principal; 2018-07-28)
PROC: 05PY33Z Removal of Infusion Device from Upper Vein, Percutaneous Approach (ICD-10-PCS; 2018-07-30 15:10)
PROC: 02HV33Z Insertion of Infusion Device into Superior Vena Cava, Percutaneous Approach (ICD-10-PCS; 2018-07-30 15:10)
DX: T82.868A Thrombosis due to vascular prosthetic devices, implants and grafts, initial encounter (principal); N18.6 End stage renal disease; I12.0 Hypertensive chronic kidney disease with stage 5 chronic kidney disease or end stage renal disease; N17.9 Acute kidney failure, unspecified; E87.5 Hyperkalemia; D63.1 Anemia in chronic kidney disease; E78.5 Hyperlipidemia, unspecified; F17.200 Nicotine dependence, unspecified, uncomplicated; G89.29 Other chronic pain; I25.10 Atherosclerotic heart disease of native coronary artery without angina pectoris; I73.9 Peripheral vascular disease, unspecified; F32.9 Major depressive disorder, single episode, unspecified; M54.9 Dorsalgia, unspecified; R07.89 Other chest pain; R09.81 Nasal congestion; R09.82 Postnasal drip; E83.89 Other disorders of mineral metabolism; Z79.899 Other long term (current) drug therapy; Z88.6 Allergy status to analgesic agent; Z99.2 Dependence on renal dialysis; Z83.3 Family history of diabetes mellitus; Z81.1 Family history of alcohol abuse and dependence; Y83.2 Surgical operation with anastomosis, bypass or graft as the cause of abnormal reaction of the patient, or of later complication, without mention of misadventure at the time of the procedure
CPT/HCPCS: 36410; 36415; 36556; 71046; 76937; 77001; 80048; 80053; 80061; 82550; 82553; 83735; 84484; 85025; 85610; 85730; 90935; 93005; 93351; 99285

== ENCOUNTER 2018-08-24 11:26 | Observation (INO) | payer MEDICARE ==
[2018-08-24] MEDS ORDERED: MORPHINE SULFATE 4 MG/ML SYRINGE IV STA ×2 (11:48→15:52)
[2018-08-24] MEDS ORDERED: ONDANSETRON 4 MG/2 ML VIAL IVP STA (11:48)
--- NOTE | 2018-08-24 12:18 | ED ---
General Adult HPI - General Chief complaint: Abdominal Pain Stated complaint: Abd pain Time Seen by Provider: 08/24/18 11:46 Source: patient, RN notes reviewed Mode of arrival: ambulatory Limitations: no limitations - History of Present Illness Initial comments: Patient 68-year-old male presented to the emergency room today with a chief complaint of symptoms of nausea, vomiting, diarrhea and abdominal pain that started this morning. Patient does admit to abdominal pain located throughout the middle of the abdomen. Describes a sharp. Currently rates it a 03/31. Patient states that he had pain similar symptoms in the past and came here to the hospital. He is unsure what the cause was. Patient admits that he woke up this morning had an episode of diarrhea along with an episode of vomiting. Patient denies any other complaints or symptoms at this time. Patient denies any recent fever, chills, shortness of breath, chest pain, back pain, headaches or visual changes, or any other complaints. - Related Data Home Medications Medication Instructions Recorded Confirmed HYDROcodone/APAP 10-325MG [[place] 1 tablet PO QID 07/28/18 08/24/18 10-325] Allergies Allergy/AdvReac Type Severity Reaction Status Date / Time aspirin AdvReac Nausea & Verified 08/24/18 14:19 Vomiting Review of Systems ROS Statement: Those systems with pertinent positive or pertinent negative responses have been documented in the HPI. ROS Other: All systems not noted in ROS Statement are negative. Past Medical History Past Medical History: Dialysis, Hyperlipidemia, Hypertension, Renal Disease Additional Past Medical History / Comment(s): "spot on liver", back pain History of Any Multi-Drug Resistant Organisms: None Reported Past Surgical History: Orthopedic Surgery Additional Past Surgical History / Comment(s): 07/01/16 NICO. dialysis graft to right upper arm, jaw surgery (titanium screws) Past Anesthesia/Blood Transfusion Reactions: No Reported Reaction Past Psychological History: Bipolar, Depression Smoking Status: Current every day smoker Past Alcohol Use History: Occasional Past Drug Use History: Cocaine, Heroin, Marijuana - Past Family History Father Additional Family Medical History / Comment(s): Father was an alcoholic and at 44. Mother Family Medical History: No Reported History Additional Family Medical History / Comment(s): Mother is healthy. Brother(s) Family Medical History: Diabetes Mellitus General Exam - General Exam Comments Initial Comments: General: The patient is awake and alert, mild distress. Eye: Pupils are equal, round and reactive to light, extra-ocular movements are intact. No nystagmus. There is normal conjunctiva bilaterally. No signs of icterus. Ears, nose, mouth and throat: There are moist mucous membranes and no oral lesions. Neck: The neck is supple, there is no tenderness or JVD. Cardiovascular: There is a regular rate and rhythm. No murmur, rub or gallop is appreciated. Respiratory: Lungs are clear to auscultation, respirations are non-labored, breath sounds are equal. No wheezes, stridor, rales, or rhonchi. Gastrointestinal: Admits soft on palpation. Patient does have tenderness mild to the left lower quadrant. No rebound, guarding. Musculoskeletal: Normal ROM, no tenderness. Strength 5/5. Sensation intact. Pulses equal bilaterally 2+. Neurological: A&O x 3. CN II-XII intact, There are no obvious motor or sensory deficits. Coordination appears grossly intact. Speech is normal. Skin: Skin is warm and dry and no rashes or lesions are noted. Psychiatric: Cooperative, appropriate mood & affect, normal judgment. Limitations: no limitations Course Vital Signs 08/24/18 08/24/18 08/24/18 11:39 13:10 14:19 Temperature 98.2 F Pulse Rate 87 85 Respiratory 24 16 Rate Blood Pressure 232/122 232/120 244/130 O2 Sat by Pulse 100 96 Oximetry 08/24/18 15:21 Temperature Pulse Rate 88 Respiratory 16 Rate Blood Pressure 239/125 O2 Sat by Pulse 99 Oximetry Medical Decision Making - Medical Decision Making Patient's CT the abdomen and pelvis is reviewed and does show evidence for colitis. Patient lactate is 2.70 had episodes of nausea vomiting diarrhea is felt to be due to dehydration. Patient is due to be dialyzed today is on dialysis. Was discussed seen by attending physician Dr. Garcia did discuss the case with java j2ee lead and family physician. Patient will be admitted to the hospital be dialyzed. Patient's resting comfortable at this time. His blood pressures been elevated here in the emergency room one was unable take his medications due to nausea vomiting this morning. Patient will be continued to be monitored. - Lab Data Result diagrams: 08/24/18 13:55 08/24/18 13:55 Lab Results 08/24/18 08/24/18 08/24/18 Range/Units 13:55 13:55 13:55 WBC 6.4 (3.8-10.6) k/uL RBC 3.59 L (4.30-5.90) m/uL Hgb 11.3 L (13.0-17.5) gm/dL Hct 35.6 L (39.0-53.0) % MCV 99.1 (80.0-100.0) fL MCH 31.6 (25.0-35.0) pg MCHC 31.9 (31.0-37.0) g/dL RDW 15.3 (11.5-15.5) % Plt Count 285 (150-450) k/uL Neutrophils % 64 % Lymphocytes % 26 % Monocytes % 5 % Eosinophils % 2 % Basophils % 1 % Neutrophils # 4.1 (1.3-7.7) k/uL Lymphocytes # 1.7 (1.0-4.8) k/uL Monocytes # 0.3 (0-1.0) k/uL Eosinophils # 0.2 (0-0.7) k/uL Basophils # 0.1 (0-0.2) k/uL Macrocytosis Slight Sodium 143 (137-145) mmol/L Potassium 5.9 H (3.5-5.1) mmol/L Chloride 105 (98-107) mmol/L Carbon Dioxide 23 (22-30) mmol/L Anion Gap 15 mmol/L BUN 34 H (9-20) mg/dL Creatinine 11.54 H* (0.66-1.25) mg/dL Est GFR (CKD-EPI)AfAm 5 (>60 ml/min/1.73 sqM) Est GFR (CKD-EPI)NonAf 4 (>60 ml/min/1.73 sqM) Glucose 73 L (74-99) mg/dL Plasma Lactic Acid Bereket 2.7 H* (0.7-2.0) mmol/L Calcium 9.6 (8.4-10.2) mg/dL Total Bilirubin 0.7 (0.2-1.3) mg/dL AST 47 (17-59) U/L ALT 30 (21-72) U/L Alkaline Phosphatase 181 H (38-126) U/L Total Protein 7.8 (6.3-8.2) g/dL Albumin 4.3 (3.5-5.0) g/dL Amylase 122 H (30-110) U/L Lipase 425 H (23-300) U/L Disposition Clinical Impression: Acute colitis, Pancreatitis, Chronic kidney disease Disposition: ADMITTED IP TO THIS HOSP Condition: Stable Is patient prescribed a controlled substance at d/c from ED?: No Referrals: Justin Romano MD [Primary Care Provider] - 1-2 days Time of Disposition: 15:29
[2018-08-24] MEDS ORDERED: cloNIDine 0.2 MG/24HR PATCH TRANSDERM SCH (14:00)
[2018-08-24 14:04] LABS: Basophils # (A) 0.1 k/uL (0-0.2); Basophils % (A) 1 %; Eosinophils # (A) 0.2 k/uL (0-0.7); Eosinophils % (A) 2 %; HCT 35.6 % (39.0-53.0); HGB 11.3 gm/dL (13.0-17.5); Lymphocytes # (A) 1.7 k/uL (1.0-4.8); Lymphocytes % (A) 26 %; MCH 31.6 pg (25.0-35.0); MCHC 31.9 g/dL (31.0-37.0); MCV 99.1 fL (80.0-100.0); Macrocytosis Slight; Mean Platelet Volume 6.9; Monocytes # (A) 0.3 k/uL (0-1.0); Monocytes % (A) 5 %; Neutrophils # (A) 4.1 k/uL (1.3-7.7); Neutrophils % (A) 64 %; Platelet Count 285 k/uL (150-450); RBC 3.59 m/uL (4.30-5.90); RDW 15.3 % (11.5-15.5); WBC 6.4 k/uL (3.8-10.6)
[2018-08-24 14:16] LABS: Albumin 4.3 g/dL (3.5-5.0); Calcium 9.6 mg/dL (8.4-10.2); Potassium 5.9 mmol/L (3.5-5.1); Total Bilirubin 0.7 mg/dL (0.2-1.3); Total Protein 7.8 g/dL (6.3-8.2)
[2018-08-24] MEDS ORDERED: hydrALAZINE HCL 20 MG/ML 1 ML VIAL IVP STA ×2 (14:47→15:52)
[2018-08-24] MEDS ORDERED: NITROGLYCERIN OINT 1 INCH/GM PACKET TOPICAL STA (14:57)
[2018-08-24] MEDS ORDERED: NITROGLYCERIN SL TABS 0.4 MG TAB SUBLINGUAL STA (14:57)
--- NOTE | 2018-08-24 15:25 | CT ---
EXAMINATION TYPE: CT abdomen pelvis wo con DATE OF EXAM: 08/24/2018 HISTORY: Generalized abdominal pain, nausea, and vomiting. CT DLP: 367.1 mGycm. Automated Exposure Control for Dose Reduction was Utilized. TECHNIQUE: CT scan of the abdomen and pelvis is performed without oral or IV contrast. COMPARISON: Prior CT abdomen and pelvis report April 24, 2017 FINDINGS: Within the limitations of a non-contrast study, the following observations are made. LUNG BASES: There is coronary artery calcification and/or stent in the RCA distribution. LIVER/GB: Liver is somewhat small in size with slightly nodular peripheral contour, underlying cirrho sis is not excluded. Correlate clinically. No suspicious masses or ductal dilatation. No surrounding ascites. PANCREAS: There is focal calcification near pancreaticoduodenal junction. This is discussed on prior report and may be product of chronic pancreatitis. Lack of IV contrast limits evaluation of pancreas as there is no fat plane from adjacent duodenal sweep. SPLEEN: There is 7 mm splenule splenic hilum axial image 40. ADRENALS: No significant abnormality is seen. KIDNEYS: Cortical thinning bilaterally is present. Central vascular calcifications are redemonstrated . Bladder is distended with extension towards right inguinal canal. Scattered pelvic phleboliths are present. BOWEL: Evaluation bowel is suboptimal secondary to lack of enteric contrast. There is no suspicious s tomach or duodenal dilatation. There is no suspicious small or large bowel dilatation. Some scattered colonic diverticula are seen most prominent in the left and sigmoid colon. Distal sigmoid colon and rectum shows mild/moderate wall thickening with mild fat stranding cannot exclude colitis at this lev el seen best coronal image 68. GENITAL ORGANS: Prostate gland is mildly enlarged bulging on bladder base. Correlate for underlying B PH. LYMPH NODES: No greater than 1cm abdominal or pelvic lymph nodes are appreciated. OSSEOUS STRUCTURES: Spine is straightened on sagittal images. There is moderate to severe disc space narrowing with endplate sclerosis and moderate spurring L2-L3 level. There is advanced disc space yahir rowing with calcification at L5-S1 level. There are nonspecific small lucent or lytic lesions through out the lumbar spine most prominent near endplates favoring subchondral cysts. Direct correlation wit h old study would be beneficial to confirm. OTHER: There is moderate to severe calcified plaque of the distal abdominal aorta extending into bran ch vessels. Distal abdominal aorta is small caliber IMPRESSION: 1. Suspect mild to moderate distal colitis, differential includes infectious and inflammatory etiolog ies. Correlate clinically. No bowel obstruction is present.
[2018-08-24] MEDS ORDERED: ONDANSETRON 4 MG/2 ML VIAL IVP PRN (15:29)
[2018-08-24] MEDS ORDERED: NALOXONE 0.4 MG/ML 1 ML VIAL IV PRN (15:29)
[2018-08-24] MEDS ORDERED: SODIUM CHLORIDE 0.9% 1,000 ML IV ONE (15:29)
[2018-08-24] MEDS: MORPHINE SULFATE 4 MG/ML SYRINGE IV PRN (20:13)
[2018-08-24] MEDS: amLODIPine 5 MG TAB PO SCH (22:57)
[2018-08-25] MEDS: MORPHINE SULFATE 4 MG/ML SYRINGE IV PRN ×7 (00:15→23:56)
--- NOTE | 2018-08-25 01:04 | HP ---
HISTORY AND PHYSICAL CHIEF COMPLAINT: 68-year-old male with abdominal pain, nausea, vomiting, diarrhea, pain thru the middle of his abdomen. CT scan of the abdomen shows some distal colitis. He had elevated amylase and lipase also. Has a history of chronic pancreatitis. He missed dialysis today, was admitted to the hospital for abdominal pain, surgical and GI consultation. PAST MEDICAL HISTORY: Lumbar disc disease, end-stage renal disease, hypertension, bipolar depression. SOCIAL HISTORY: Current everyday smoker. Has a past medical history of marijuana, cocaine use. ALLERGIES: ASPIRIN. PHYSICAL EXAMINATION: Temp 98, pulse 85 to 87 respiratory rate 16 to 24. Blood pressure is 220 to 240s over 120 to 130s. Cardiovascular: S1-S2. Lungs transmitted upper sounds. GI soft. Hematology: Negative Homans. Neurologic: Alert orient x3. Psych: Fair mood and affect. Heart: Regular rate and rhythm. GI is tender to palpation lower abdominal quadrants. BUN 34, creatinine of 1.54, hemoglobin is 11.3. Amylase 122, lipase 425. ASSESSMENT: 1. End-stage renal disease. 2. Possible distal colitis. 3. Acute on chronic anemia. 4. Hyperkalemia. 5. Hypertension acceleration, blood pressure control will be given. Repeat amylase, lipase in the morning. Surgical and GI consult. Please see further orders. MMODL / IJN: [id number] /
[2018-08-25 07:15] LABS: Albumin 3.8 g/dL (3.5-5.0); Amylase 114 U/L (30-110); Calcium 9.2 mg/dL (8.4-10.2); Lipase 271 U/L (23-300); Potassium 5.1 mmol/L (3.5-5.1); Total Bilirubin 0.7 mg/dL (0.2-1.3); Total Protein 7.2 g/dL (6.3-8.2)
[2018-08-25 08:24] LABS: Anisocytosis Slight; HCT 32.2 % (39.0-53.0); HGB 10.7 gm/dL (13.0-17.5); MCH 32.7 pg (25.0-35.0); MCHC 33.2 g/dL (31.0-37.0); MCV 98.5 fL (80.0-100.0); Macrocytosis Slight; Mean Platelet Volume 7.3; Platelet Count 232 k/uL (150-450); RBC 3.27 m/uL (4.30-5.90); RDW 16.2 % (11.5-15.5); WBC 3.5 k/uL (3.8-10.6)
[2018-08-25] MEDS: amLODIPine 5 MG TAB PO SCH (09:06)
[2018-08-25 10:27] LABS: Eosinophils # (M) 0.11 k/uL (0-0.7); Monocytes # (M) 0.35 k/uL (0-1.0); Neutrophils # (M) 1.75 k/uL (1.3-7.7); Neutrophils % (M) 50 %; Nucleated Red Blood Cells 0 /100 WBC (0-0); Total Cells Counted 100
--- NOTE | 2018-08-25 13:19 | P.CONS ---
History of Present Illness - Reason for Consult Consult date: 08/25/18 Colitis Requesting physician: Justin Romano - Chief Complaint Nausea vomiting diarrhea abdominal pain - History of Present Illness 68-year-old gentleman endstage renal disease hemodialysis, EtOH pancreatitis, anemia of chronic disease, bipolar, PVD, history of drug abuse cocaine EtOH admitted with intractable nausea vomiting diarrhea abdominal pain 2 days. Pain is described as sharp. Diarrhea has ceased. Denies fever chills hematemesis hematochezia melena. No recent antibiotics. No changes in medications. He completed dialysis yesterday states his blood pressure was running high not low. Colonoscopy approximately 2 years ago to his memory was unremarkable. Requesting diet advancement. CT abdomen suspect mild to moderate distal colitis possible infectious possible inflammatory. No bowel obstruction. White count 3.5-6.4. Hemoglobin 10.7- 11.3. Platelet 285. Admission potassium 5.9 presently 5.1. Creatinine 11.5 presently 7.9. BUN 34 presently 22. Lipase 425 presently 71. Afebrile. LFTs within normal limits today. Review of Systems Constitutional: Denies fever, chills, sweats, weight gain, or loss. HEENT: Negative for migraines, blurred vision or loss, earaches, drainage, tinnitus, oral mucosal lesions, dysphagia, or odynophagia. Cardiac: Negative for chest pain, arrhythmias, or palpitation. Respiratory: Negative for shortness of breath, hemoptysis, cough, or sputum production. Gastrointestinal: See HPI for pertinent findings. Genitourinary: Negative for hematuria, urgency, frequency, polyuria, dysuria, or penile discharge. Musculoskeletal: Negative for muscle aches, swelling, arthritis, and arthralgi as. Neurologic: Negative for stroke or TIA. Endocrine: Negative for thyroid problems. Skin: Negative for rash or itching. Psychiatric: History of bipolar. Past Medical History Past Medical History: Dialysis, Hyperlipidemia, Hypertension, Renal Disease Additional Past Medical History / Comment(s): "spot on liver", back pain History of Any Multi-Drug Resistant Organisms: None Reported Past Surgical History: Orthopedic Surgery Additional Past Surgical History / Comment(s): 07/01/16 NICO. dialysis graft to right upper arm, jaw surgery (titanium screws) Past Anesthesia/Blood Transfusion Reactions: No Reported Reaction Past Psychological History: Bipolar, Depression Additional Psychological History / Comment(s): Pt resides with one of his brothers. He does not drive. Smoking Status: Current every day smoker Past Alcohol Use History: Occasional Additional Past Alcohol Use History / Comment(s): Pt started smoking around age 7 or 8 yrs. He drinks on a daily basis-brother states he is an alcoholic 03/27/17 pt denies alcohol use. 04/24/17 pt states he drinks in moderation, 2-3 drinks/day. Past Drug Use History: Cocaine, Heroin, Marijuana Additional Drug Use History / Comment(s): marijauna and cocaine last used 02/2017 - Past Family History Father Additional Family Medical History / Comment(s): Father was an alcoholic and at 44. Mother Family Medical History: No Reported History Additional Family Medical History / Comment(s): Mother is healthy. Brother(s) Family Medical History: Diabetes Mellitus Medications and Allergies Home Medications Medication Instructions Recorded Confirmed Type HYDROcodone/APAP 10-325MG [[place] 1 tablet PO QID 07/28/18 08/24/18 History 10-325] Allergies Allergy/AdvReac Type Severity Reaction Status Date / Time aspirin AdvReac Nausea & Verified 08/24/18 14:19 Vomiting Physical Exam Vitals: Vital Signs Temp Pulse Pulse Resp BP BP Pulse Ox 08/25/18 08:15 98.1 F 84 18 168/97 97 08/25/18 04:00 98.2 F 80 15 140/70 98 08/25/18 00:00 98.2 F 92 15 176/90 95 08/24/18 20:00 98.2 F 104 H 18 151/104 99 08/24/18 16:30 98.1 F 109 H 18 175/107 99 08/24/18 16:00 227/126 08/24/18 15:47 88 16 227/126 99 08/24/18 15:21 88 16 239/125 99 08/24/18 14:19 85 16 244/130 96 08/24/18 13:10 232/120 Intake and Output 08/24/18 08/25/18 08/25/18 22:59 06:59 14:59 Intake Total 240 Output Total 120 Balance 120 Intake: Oral 240 Output: Urine 120 Other: # Voids 0 Weight 62.4 kg General appearance: The patient is alert, oriented, in no acute distress. HET: Head is normocephalic and atraumatic. Pupils are equal and reactive. Oropharynx is clear without lesions. Neck: Supple without lymphadenopathy. Trachea midline. Heart: S1 S2. Regular rate and rhythm. Lungs: No crackles or wheezes are heard. Abdomen: Soft, nontender, nondistended with bowel sounds. No peritoneal signs. No palpable organomegaly or masses. Extremities: Normal skin color and turgor. No cyanosis, rash, ulceration, clubbing, or edema. Radial and pedal pulses are 2/4 bilaterally. Neurological: No focal deficits. Strength and sensation are grossly intact. Results CBC & Chem 7: 08/25/18 06:29 08/25/18 06:29 Labs: Abnormal Lab Results - Last 24 Hours (Table) 08/24/18 08/24/18 08/24/18 Range/Units 13:55 13:55 13:55 WBC (3.8-10.6) k/uL RBC 3.59 L (4.30-5.90) m/uL Hgb 11.3 L (13.0-17.5) gm/dL Hct 35.6 L (39.0-53.0) % RDW (11.5-15.5) % Potassium 5.9 H (3.5-5.1) mmol/L BUN 34 H (9-20) mg/dL Creatinine 11.54 H* (0.66-1.25) mg/dL Glucose 73 L (74-99) mg/dL Plasma Lactic Acid Bereket 2.7 H* (0.7-2.0) mmol/L Alkaline Phosphatase 181 H (38-126) U/L Amylase 122 H (30-110) U/L Lipase 425 H (23-300) U/L 08/25/18 08/25/18 08/25/18 Range/Units 06:29 06:29 06:29 WBC 3.5 L (3.8-10.6) k/uL RBC 3.27 L (4.30-5.90) m/uL Hgb 10.7 L (13.0-17.5) gm/dL Hct 32.2 L (39.0-53.0) % RDW 16.2 H (11.5-15.5) % Potassium (3.5-5.1) mmol/L BUN 22 H (9-20) mg/dL Creatinine 7.91 H* (0.66-1.25) mg/dL Glucose (74-99) mg/dL Plasma Lactic Acid Bereket (0.7-2.0) mmol/L Alkaline Phosphatase (38-126) U/L Amylase 114 H (30-110) U/L Lipase (23-300) U/L CT scan - abdomen: report reviewed (Dr. Mccoy) Assessment and Plan (1) Pancreatitis Narrative/Plan: Acute pancreatitis with a history of EtOH pancreatitis. Current Visit: Yes Status: Acute Code(s): K85.90 - ACUTE PANCREATITIS WITHOUT NECROSIS OR INFECTION, UNSP SNOMED Code(s): 15770156 (2) Acute colitis Narrative/Plan: 68-year-old gentleman with a history of end-stage renal disease hemodialysis admitted with abdominal pain intractable nausea vomiting nonbloody diarrhea CT imaging reported mild to moderate distal colitis possible infectious possible inflammatory. Diarrhea abdominal pain. Current Visit: Yes Status: Acute Code(s): K52.9 - NONINFECTIVE GASTROENTERITIS AND COLITIS, UNSPECIFIED SNOMED Code(s): 74848086 (3) End stage renal disease on dialysis Current Visit: Yes Status: Acute Code(s): N18.6 - END STAGE RENAL DISEASE; Z99.2 - DEPENDENCE ON RENAL DIALYSIS SNOMED Code(s): 598641423 Plan: 1. Stool studies if diarrhea persists. Light diet as tolerated low fat pancreatic enzymes have normalized. We'll follow closely with you. Thank you for this kind referral and the opportunity to participate in the care of your patient. This consultation was discussed with Dr. Mccoy. The impression and plan of care have been directed as dictated.
[2018-08-25 13:29] LABS: Hepatitis B Surface AB- Quant 96.8 mIU/mL
--- NOTE | 2018-08-25 15:50 | PN ---
PROGRESS NOTE SUBJECTIVE: This is a 68-year-old -[place] male with end-stage renal disease, alcohol- induced pancreatitis, anemia of chronic disease, history of drug abuse, admitted with abdominal pain. CT scan did show colitis. Colonoscopy 2 years ago was unremarkable. His hypertension up to 100 systolic is improved with dialysis. Possibly noncompliance. I added Norvasc to his blood pressure regimen yesterday. White count is normal at 3.5 to 6.4. GI saw the patient today. ASSESSMENT: 1. Acute pancreatitis. 2. History of alcohol. 3. Alcohol-induced pancreatitis. 4. Acute colitis. 5. End-stage renal disease. 6. Lumbar degenerative disc disease. Give a light diet as tolerated, low fat. Pancreatic enzymes have normalized. I suspect non-infective gastroenteritis. Will follow up as an outpatient. If he is stabilized with a light diet, I will send him home tomorrow. DELGADO / IJN: [id number] /
--- NOTE | 2018-08-26 00:02 | CONS ---
CONSULTATION REASON FOR CONSULT: End-stage renal disease. HISTORY OF PRESENT ILLNESS: Patient is a 68-year-old male who was admitted to the hospital with complaints of abdominal pain. He is normally maintained on hemodialysis on a Thursday, , Thursday schedule. He has had a history of noncompliance, however, is somewhat improved. The patient was found to have elevated amylase and lipase levels. Currently patient is n.p.o. He wants to eat. He was dialyzed yesterday for a short treatment and patient will be dialyzed today as well as in a.m. PAST MEDICAL HISTORY: End-stage renal disease, anemia of chronic disease, CKD mineral bone disorder, a history of drug abuse previously. PAST SURGICAL HISTORY: AV graft, previous dialysis catheter placement. MEDICATIONS: Prior to admission include [place]. The patient should be on phosphate binders as well which is not listed in his med list. ALLERGIES: Aspirin which causes nausea and vomiting. REVIEW OF SYSTEMS: As per HPI. Other systems negative. PHYSICAL EXAMINATION: Patient is comfortable, awake, alert, oriented x3, not in any acute distress. Blood pressure this morning was 168/97, heart rate 84 per minute, he is afebrile. Examination of the heart S1, S2. Examination lungs bilateral breath sounds are heard. Abdomen is soft, nontender. Examination lower extremities shows no evidence of edema. 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 LABS SHOW: Hemoglobin 10.7, sodium 138, potassium 5.1, BUN 22, serum creatinine 7.9. The lipase is down to 271. Amylase is 114. ASSESSMENT: 1. End-stage renal disease, on hemodialysis on a Thursday, , Saturdays schedule, currently being dialyzed via left IJ PermCath. The patient is scheduled to see Vascular Surgery for a new AV graft. 2. Hyperkalemia on admission, currently resolved. 3. Acute pancreatitis with abdominal CT showing suggestion of chronic pancreatitis. There was no biliary duct dilatation noted. 4. Mild to moderate distal colitis noted on CT scan. Clinically with no ongoing diarrhea. PLAN: Hemodialysis today as well as in a.m. as tomorrow is patient's regular schedule. I will also check a serum phosphorus level with labs in a.m. Thank you for this consultation. We will continue to follow the patient with you during his hospitalization. MMODL / IJN: [id number] /
[2018-08-26] MEDS ORDERED: MORPHINE SULFATE 4 MG/ML SYRINGE ONE (04:00)
[2018-08-26] MEDS: MORPHINE SULFATE 4 MG/ML SYRINGE IV PRN ×3 (08:24→20:03)
[2018-08-26] MEDS: amLODIPine 5 MG TAB PO SCH (08:25)
--- NOTE | 2018-08-26 11:29 | P.PN ---
Subjective Progress Note Date: 08/26/18 Principal diagnosis: Pancreatitis abdominal pain and diarrhea Receiving dialysis. No diarrhea. Abdominal pain improved. Tolerating renal diet. Afebrile. Objective - Vital Signs Vital signs: Vital Signs Temp 98.0 F 08/26/18 08:15 Pulse 92 08/26/18 08:15 Resp 18 08/26/18 08:15 BP 178/94 08/26/18 08:15 Pulse Ox 96 08/26/18 08:15 Intake & Output 08/25/18 08/26/18 08/26/18 18:59 06:59 18:59 Intake Total 1184 600 Output Total 120 120 Balance 1064 -120 600 Weight 62.6 kg Intake: Oral 1184 600 Output: Urine 120 120 Other: # Voids 0 1 - Exam General appearance: The patient is alert, oriented, in no acute distress. HET: Head is normocephalic and atraumatic. Pupils are equal and reactive. Orop harynx is clear without lesions. Neck: Supple without lymphadenopathy. Trachea midline. Heart: S1 S2. Regular rate and rhythm. Lungs: No crackles or wheezes are heard. Abdomen: Soft, mild tenderness across mid abdomen, nondistended with bowel sounds. No peritoneal signs. No palpable organomegaly or masses. Extremities: Normal skin color and turgor. No cyanosis, rash, ulceration, clubbing, or edema. Radial and pedal pulses are 2/4 bilaterally. Neurological: No focal deficits. Strength and sensation are grossly intact. - Labs CBC & Chem 7: 08/25/18 06:29 08/25/18 06:29 Labs: Abnormal Lab Results - Last 24 Hours (Table) 08/25/18 08/25/18 Range/Units 06:29 06:29 Phosphorus 5.3 H (2.5-4.5) mg/dL Hep Bs Antibody Reactive H (Non-Reactive) Hep B Core Total Ab Reactive H (Non-Reactive) Assessment and Plan (1) Pancreatitis Narrative/Plan: Acute pancreatitis with a history of EtOH pancreatitis. Current Visit: Yes Status: Acute Code(s): K85.90 - ACUTE PANCREATITIS WITHOUT NECROSIS OR INFECTION, UNSP SNOMED Code(s): 35886922 (2) Acute colitis Narrative/Plan: 68-year-old gentleman with a history of end-stage renal disease hemodialysis admitted with abdominal pain intractable nausea vomiting nonbloody diarrhea CT imaging reported mild to moderate distal colitis possible infectious possible inflammatory. Diarrhea abdominal pain. Current Visit: Yes Status: Acute Code(s): K52.9 - NONINFECTIVE GASTROENTERITIS AND COLITIS, UNSPECIFIED SNOMED Code(s): 57166499 (3) End stage renal disease on dialysis Current Visit: Yes Status: Acute Code(s): N18.6 - END STAGE RENAL DISEASE; Z99.2 - DEPENDENCE ON RENAL DIALYSIS SNOMED Code(s): 713109250 Plan: 1. Stool studies if diarrhea persists presently without diarrhea. Renal diet. We'll follow closely with you. Assessment and plan a care discussed with Dr. Mccoy
[2018-08-26] MEDS: HYDROcodone/APAP 10-325MG 1 EACH TAB PO PRN ×2 (12:15→18:27)
--- NOTE | 2018-08-26 14:04 | P.PN ---
Subjective Patient is seen in follow-up for end-stage renal disease. He is maintained on hemodialysis on a Thursday schedule. Currently seen while undergoing hemodialysis. Potassium level was 5.1 as of yesterday. No vomiting or diarrhea. No active complaints at this time. Vital signs are stable. General: The patient appeared well nourished and normally developed. HEENT: Head exam is unremarkable. Neck is without jugular venous distension. LUNGS: Lungs are clear to auscultation and percussion. Breath sounds decreased. HEART: Rate and Rhythm are regular. First and second heart sounds normal. No murmurs, rubs or gallops. ABDOMEN: Abdominal exam reveals normal bowel sounds. Non-tender and non- distended. No evidence of peritonitis. EXTREMITITES: No clubbing, cyanosis, or edema. Objective - Vital Signs Vital signs: Vital Signs Temp 98.0 F 08/26/18 08:15 Pulse 92 08/26/18 08:15 Resp 18 08/26/18 08:15 BP 178/94 08/26/18 08:15 Pulse Ox 96 08/26/18 08:15 Intake & Output 08/25/18 08/26/18 08/26/18 18:59 06:59 18:59 Intake Total 1184 600 Output Total 120 120 Balance 1064 -120 600 Weight 62.6 kg Intake: Oral 1184 600 Output: Urine 120 120 Other: # Voids 0 1 - Labs CBC & Chem 7: 08/25/18 06:29 08/25/18 06:29 Labs: Abnormal Lab Results - Last 24 Hours (Table) 08/25/18 Range/Units 06:29 Phosphorus 5.3 H (2.5-4.5) mg/dL Assessment and Plan Plan: Assessment: 1. End-stage renal disease maintained on hemodialysis on a Thursday schedule via permacath. 2. Hyperkalemia secondary to chronic kidney disease and noncompliance with hemodialysis. Better. 3. Hypertension with chronic kidney disease. 4. Yrts-ns-rpafauet distal colitis. 5. Acute pancreatitis. Being followed by GI. 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 Plan: Currently seen while undergoing hemodialysis. Stress the importance of being compliant with hemodialysis treatments as outpatient. Recheck potassium level tomorrow morning.
[2018-08-27] MEDS: MORPHINE SULFATE 4 MG/ML SYRINGE IV PRN ×2 (00:53→04:46)
[2018-08-27] MEDS: HYDROcodone/APAP 10-325MG 1 EACH TAB PO PRN ×2 (02:17→07:51)
[2018-08-27 05:24] VITALS: TEMP 98.3
[2018-08-27 06:32] LABS: Calcium 8.9 mg/dL (8.4-10.2); Potassium 5.2 mmol/L (3.5-5.1)
[2018-08-27] MEDS: amLODIPine 5 MG TAB PO SCH (07:51)
[2018-08-27 07:57] VITALS: BP 164/99; PULSE 77; RESP 18
--- NOTE | 2018-08-27 10:03 | P.PN ---
Subjective Progress Note Date: 08/27/18 Principal diagnosis: Pancreatitis abdominal pain and diarrhea No diarrhea. Abdominal pain improved. Tolerating renal diet. Afebrile. Objective - Vital Signs Vital signs: Vital Signs Temp 98.3 F 08/27/18 04:00 Pulse 77 08/27/18 07:53 Resp 18 08/27/18 07:53 BP 164/99 08/27/18 07:53 Pulse Ox 100 08/27/18 07:53 Intake & Output 08/26/18 08/27/18 08/27/18 18:59 06:59 18:59 Intake Total 1280 240 Output Total 120 Balance 1280 -120 240 Weight 66.5 kg Intake: Oral 1280 240 Output: Urine 120 Other: # Voids 1 1 - Exam General appearance: The patient is alert, oriented, in no acute distress. HET: Head is normocephalic and atraumatic. Pupils are equal and reactive. Oropharynx is clear without lesions. Neck: Supple without lymphadenopathy. Trachea midline. Heart: S1 S2. Regular rate and rhythm. Lungs: No crackles or wheezes are heard. Abdomen: Soft, mild tenderness across mid abdomen, nondistended with bowel sounds. No peritoneal signs. No palpable organomegaly or masses. Extremities: Normal skin color and turgor. No cyanosis, rash, ulceration, clubbing, or edema. Radial and pedal pulses are 2/4 bilaterally. Neurological: No focal deficits. Strength and sensation are grossly intact. - Labs CBC & Chem 7: 08/25/18 06:29 08/27/18 05:51 Labs: Abnormal Lab Results - Last 24 Hours (Table) 08/27/18 Range/Units 05:51 Potassium 5.2 H (3.5-5.1) mmol/L BUN 26 H (9-20) mg/dL Creatinine 5.11 H (0.66-1.25) mg/dL Assessment and Plan (1) Pancreatitis Narrative/Plan: Acute pancreatitis with a history of EtOH pancreatitis. Current Visit: Yes Status: Acute Code(s): K85.90 - ACUTE PANCREATITIS WITHOUT NECROSIS OR INFECTION, UNSP SNOMED Code(s): 39645675 (2) Acute colitis Narrative/Plan: 68-year-old gentleman with a history of end-stage renal disease hemodialysis admitted with abdominal pain intractable nausea vomiting nonbloody diarrhea CT imaging reported mild to moderate distal colitis possible infectious possible inflammatory. Diarrhea abdominal pain. Current Visit: Yes Status: Acute Code(s): K52.9 - NONINFECTIVE GASTROENTERITIS AND COLITIS, UNSPECIFIED SNOMED Code(s): 57223358 (3) End stage renal disease on dialysis Current Visit: Yes Status: Acute Code(s): N18.6 - END STAGE RENAL DISEASE; Z99.2 - DEPENDENCE ON RENAL DIALYSIS SNOMED Code(s): 713292911 Plan: 1. DC per medicine and renal. Renal diet. We'll follow on as needed basis. Assessment and plan a care discussed with Dr. Mccoy
--- NOTE | 2018-08-27 23:07 | PN ---
PROGRESS NOTE Patient is seen for followup for end-stage renal disease. He was admitted with pancreatitis and abdominal pain. Currently patient is tolerating oral intake. He will be dialyzed tomorrow as outpatient. PHYSICAL EXAMINATION: This morning blood pressure was 165/87, heart rate 70 per minute. Patient is afebrile. Examination of the heart S1, S2. Examination lungs bilateral breath sounds are heard. Abdomen is soft, nontender. Examination lower extremities shows no evidence of edema. [employer] exam is grossly intact. LABS: Hemoglobin 10.7, sodium 139, potassium 5.2, BUN 26, serum creatinine 5.1. ASSESSMENT: 1. End-stage renal disease, on hemodialysis on a Thursday, , Thursday schedule as outpatient. 2. Abdominal pain secondary to pancreatitis with previous history of pancreatitis as well, currently resolved. 3. Anemia of chronic disease. 4. Chronic kidney disease mineral bone disorder. PLAN: The patient can be discharged and follow up as outpatient for hemodialysis tomorrow. He is advised low-potassium diet as his potassium is mildly elevated. MMODL / IJN: [id number] /
--- NOTE | 2018-09-10 11:08 | DS ---
DISCHARGE SUMMARY DATE OF ADMISSION: 08/24/2018 DATE OF DISCHARGE: 08/27/2018 MEDICATION: [place] 10/325 q.6 p.r.n. CONDITION: Stable. PROGNOSIS: Guarded. Ambulate as tolerated. HOSPITAL COURSE OF EVENTS: This is male who came in with fluid overload, end-stage renal failure. changes. Chest pain, was ruled out for myocardial infarction. Dialysis was done. Hyperkalemia was fixed. The patient will follow up as an outpatient. MMODL / IJN: [id number] /
== END 2018-08-27 13:00 | disposition home or self-care (01) ==
LOC: EC 11:26 → 3SCARD 15:01
PROVIDERS: ADMIT Family Medicine; ATTEND Family Medicine
DX: K85.90 Acute pancreatitis without necrosis or infection, unspecified (principal); K52.9 Noninfective gastroenteritis and colitis, unspecified; E86.0 Dehydration; I12.0 Hypertensive chronic kidney disease with stage 5 chronic kidney disease or end stage renal disease; N18.6 End stage renal disease; Z99.2 Dependence on renal dialysis; M51.36 Other intervertebral disc degeneration, lumbar region; F31.9 Bipolar disorder, unspecified; D63.1 Anemia in chronic kidney disease; K86.0 Alcohol-induced chronic pancreatitis; E78.5 Hyperlipidemia, unspecified; E87.5 Hyperkalemia; Z91.15 Patient's noncompliance with renal dialysis; F17.200 Nicotine dependence, unspecified, uncomplicated; Z88.6 Allergy status to analgesic agent; I73.9 Peripheral vascular disease, unspecified; Z81.1 Family history of alcohol abuse and dependence; Z83.3 Family history of diabetes mellitus
CPT/HCPCS: 96376 ×5; 96374; 96375; 99285; 36415; 80053 ×2; 80048; 82150 ×2; 83605; 83690 ×2; 84100; 85025 ×2; 86706; 87340; 86704; 74176; G0257; G0378 ×4; J1644; J2270 ×4; J0360; J2405; 90935

== ENCOUNTER 2018-09-08 01:16 | Observation (INO) | payer MEDICARE ==
[2018-09-08] MEDS ORDERED: MORPHINE SULFATE 4 MG/ML SYRINGE IVP STA ×2 (01:44→02:53)
[2018-09-08 01:49] LABS: Albumin 3.8 g/dL (3.5-5.0); Calcium 8.8 mg/dL (8.4-10.2); Total Bilirubin 0.6 mg/dL (0.2-1.3); Total Protein 6.9 g/dL (6.3-8.2)
[2018-09-08 01:57] LABS: Basophils % (A) 1 %; Eosinophils # (A) 0.2 k/uL (0-0.7); Eosinophils % (A) 4 %; HGB 10.7 gm/dL (13.0-17.5); Lymphocytes % (A) 41 %; MCH 31.7 pg (25.0-35.0); MCHC 32.3 g/dL (31.0-37.0); MCV 98.2 fL (80.0-100.0); Macrocytosis Slight; Mean Platelet Volume 6.9; Monocytes # (A) 0.3 k/uL (0-1.0); Monocytes % (A) 5 %; Neutrophils # (A) 2.2 k/uL (1.3-7.7); Neutrophils % (A) 45 %; Platelet Count 185 k/uL (150-450); RBC 3.36 m/uL (4.30-5.90); RDW 15.9 % (11.5-15.5); WBC 4.8 k/uL (3.8-10.6)
[2018-09-08 02:01] LABS: Potassium 5.1 mmol/L (3.5-5.1)
[2018-09-08] MEDS ORDERED: MORPHINE SULFATE 2 MG/ML SYRINGE IM STA (02:02)
--- NOTE | 2018-09-08 02:11 | ED ---
Chest Pain HPI - General Source: EMS Mode of arrival: EMS Limitations: no limitations <Kenyatta Mann - Last Filed: 09/08/18 03:16> <Zakia Guzman - Last Filed: 09/08/18 21:53> - General Chief Complaint: Chest Pain Stated Complaint: OTF Time Seen by Provider: 09/08/18 01:19 - History of Present Illness Initial Comments: 68-year-old male patient with past medical history significant for renal failure with dialysis, hyperlipidemia, and hypertension presents to the emergency department today for evaluation of shortness of breath and chest pain. Patient states symptoms started earlier today prior to his dialysis appointment. Patient states he is having substernal aching chest pain. Denies any radiation of the pain to his back. Patient states he is quite short of breath. Denies any cough or hemoptysis. Patient denies any nausea or vomiting. Denies any sweats or dizziness. Patient denies any recent rash, abdominal pain, diarrhea, constipation, back pain, numbness, tingling, dizziness, weakness, hematuria, dysuria, urinary urgency, urinary frequency, headache, visual changes, or any other complaints. (Kenyatta Mann) - Related Data Home Medications Medication Instructions Recorded Confirmed HYDROcodone/APAP 10-325MG [[place] 1 tab PO DAILY 09/08/18 09/08/18 10-325] amLODIPine BESYLATE 10 mg PO DAILY 09/08/18 09/08/18 cloNIDine HCL [Catapres] 0.2 mg PO TID 09/08/18 09/08/18 Allergies Allergy/AdvReac Type Severity Reaction Status Date / Time aspirin AdvReac Nausea & Verified 09/08/18 07:58 Vomiting Review of Systems ROS Other: All systems not noted in ROS Statement are negative. <Kenyatta Mann - Last Filed: 09/08/18 03:16> ROS Other: All systems not noted in ROS Statement are negative. <Zakia Guzman - Last Filed: 09/08/18 21:53> ROS Statement: Those systems with pertinent positive or pertinent negative responses have been documented in the HPI. EKG Findings - EKG Comments: EKG Findings:: EKG obtained at 07 10 shows normal sinus rhythm with a prolonged QT interval. Ventricular rate is 83, AK interval 148, QRS duration 78, QT 420, QTC 493. No evidence of ST elevation or depression. <Kenyatta Mann - Last Filed: 09/08/18 03:16> Past Medical History Past Medical History: Dialysis, Hyperlipidemia, Hypertension, Renal Disease Additional Past Medical History / Comment(s): "spot on liver", back pain History of Any Multi-Drug Resistant Organisms: None Reported Past Surgical History: Orthopedic Surgery Additional Past Surgical History / Comment(s): 07/01/16 NICO. dialysis graft to right upper arm, jaw surgery (titanium screws) Past Anesthesia/Blood Transfusion Reactions: No Reported Reaction Past Psychological History: Bipolar, Depression Smoking Status: Current every day smoker Past Alcohol Use History: Occasional Past Drug Use History: Cocaine, Heroin, Marijuana - Past Family History Father Additional Family Medical History / Comment(s): Father was an alcoholic and at 44. Mother Family Medical History: No Reported History Additional Family Medical History / Comment(s): Mother is healthy. Brother(s) Family Medical History: Diabetes Mellitus <JohnathanKenyatta Jimmy - Last Filed: 09/08/18 03:16> General Exam Limitations: no limitations General appearance: alert, in no apparent distress, other (Physical well- developed, well-nourished elderly male patient who is in mild distress related to pain. Vital signs upon presentation are temperature 98.5F, pulse 83, respirations 22, blood pressure 141/107, pulse ox 99% on room air.) Eye exam: Present: normal appearance, PERRL, EOMI. Absent: scleral icterus, conjunctival injection, periorbital swelling ENT exam: Present: normal exam, normal oropharynx, mucous membranes moist Respiratory exam: Present: normal lung sounds bilaterally. Absent: respiratory distress, wheezes, rales, rhonchi, stridor Cardiovascular Exam: Present: regular rate, normal rhythm, normal heart sounds. Absent: systolic murmur, diastolic murmur, rubs, gallop, clicks GI/Abdominal exam: Present: soft, normal bowel sounds. Absent: distended, tenderness, guarding, rebound, rigid Neurological exam: Present: alert, oriented X3, CN II-XII intact Psychiatric exam: Present: normal affect, normal mood Skin exam: Present: warm, dry, intact, normal color. Absent: rash <Kenyatta Mann Jimmy - Last Filed: 09/08/18 03:16> Course Vital Signs 09/08/18 09/08/18 09/08/18 01:17 03:04 03:54 Temperature 98.5 F 98.8 F Pulse Rate 83 85 Pulse Rate [ 76 Pulse Oximetery ] Respiratory 22 16 18 Rate Blood Pressure 141/107 151/93 Blood Pressure 171/79 [Right Arm] O2 Sat by Pulse 99 96 99 Oximetry 09/08/18 04:00 Temperature 98.8 F Pulse Rate 73 Pulse Rate [ 76 Pulse Oximetery ] Respiratory 18 Rate Blood Pressure 146/88 Blood Pressure 171/79 [Right Arm] O2 Sat by Pulse 99 Oximetry Chest Pain MDM <Kenyatta Mann - Last Filed: 09/08/18 03:16> <Zakia Guzman - Last Filed: 09/08/18 21:53> - [facility]: Two-view x-ray of the chest was obtained and showed no acute cardio pulmonary process. MDM: 68-year-old male patient with past medical history significant for renal failure with dialysis, hyperlipidemia, hypertension presents to the emergency department today for evaluation of chest pain. Physical examination was unremarkable. Lungs are clear to auscultation with good air movement. EKG showed normal sinus with a prolonged QT. No ST elevation or depression. Initial troponin was negative. BNP was 10,500. Chest x-ray showed no overt heart failure. Patient will be given to the hospital for further evaluation of his chest pain. We'll do VQ scan in the morning to rule out PE. I did discuss findings, results, and plan with the patient, he is agreeable. (Kenyatta Mann) I personally saw and examined the patient. I reviewed and agree with the mid- level provider findings including all diagnostic interpretations and treatment plans as written unless otherwise stated. Patient care was discussed with his primary care is addition who is familiar with the patient and agrees with plan for admission (Zakia Guzman) Disposition Decision to Admit Reason: Admit from Decision Date: 09/08/18 Decision Time: 03:17 <Kenyatta Mann - Last Filed: 09/08/18 03:16> <Zakia Guzman - Last Filed: 09/08/18 21:53> Clinical Impression: Chest pain, Shortness of breath Disposition: ADMITTED IP TO THIS [facility] Condition: Serious
[2018-09-08 02:30] LABS: INR 1.1 (<1.2); Partial Thromboplastin Time 27.6 sec (22.0-30.0); Prothrombin Time 11.2 sec (9.0-12.0)
[2018-09-08 02:35] LABS: D-Dimer 0.88 mg/L FEU (<0.60)
[2018-09-08] MEDS ORDERED: NITROGLYCERIN SL TABS 0.4 MG TAB SUBLINGUAL PRN (03:18)
[2018-09-08] MEDS ORDERED: ENOXAPARIN 60 MG/0.6 ML SYRINGE SQ STA (03:23)
[2018-09-08] MEDS ORDERED: NALOXONE 0.4 MG/ML 1 ML VIAL IV PRN (04:06)
[2018-09-08 04:54] VITALS: BMI 22.4
[2018-09-08] MEDS: HYDROcodone/APAP 10-325MG 1 EACH TAB PO PRN ×4 (05:38→22:54)
[2018-09-08] MEDS: MORPHINE SULFATE 4 MG/ML SYRINGE IVP PRN ×4 (08:02→21:03)
[2018-09-08] MEDS: amLODIPine 10 MG TAB PO SCH (08:02)
--- NOTE | 2018-09-08 08:21 | P.CRDCN ---
History of Present Illness Consult date: 09/08/18 Requesting physician: Justin Romano Consult reason: chest pain, shortness of breath Chief complaint: Chest pain, shortness of breath History of present illness: This is a 68-year-old -[place] African gentleman with history of end-stage renal disease on hemodialysis 3 times a week, hypertension, chronic nicotine abuse, prior history of alcohol and drug use, nondiabetic, who presented to the [facility] with symptoms of shortness of breath and associated chest pain. Patient describes the chest pain as sharp in nature, it's worse with deep breathing, worse with cough. According to the patient, he also states that he has been having some episodes of diarrhea. Patient was in the hospital with similar symptoms in July of this year at which time he underwent a dobutamine echocardiographic study which was negative for any reversible ischemia. Chest x-ray performed on admission here remains pending, his EKG shows a normal sinus rhythm with no acute changes noted. White blood cell count 4.8, hemoglobin 10.7, platelet count 185. D-dimer 0.8. Sodium 135, potassium 5.1, BUN 22 and creatinine 6.6. Troponin this morning 0.019. BNP level 10,700. BNP level documented in May was 22,000. At the time of my examination this morning, patient is lying flat in bed, denies any overt shortness of breath, continues to complain of sharp chest pain with taking a deep breath and coughing. Past Medical History Past Medical History: Dialysis, Hyperlipidemia, Hypertension, Renal Disease Additional Past Medical History / Comment(s): "spot on liver", back pain History of Any Multi-Drug Resistant Organisms: None Reported Past Surgical History: Orthopedic Surgery Additional Past Surgical History / Comment(s): 07/01/16 NICO. dialysis graft to right upper arm, jaw surgery (titanium screws) Past Anesthesia/Blood Transfusion Reactions: No Reported Reaction Past Psychological History: Bipolar, Depression Additional Psychological History / Comment(s): Pt resides with one of his brothers. He does not drive. Smoking Status: Current every day smoker Past Alcohol Use History: Occasional Additional Past Alcohol Use History / Comment(s): Pt started smoking around age 7 or 8 yrs. He drinks on a daily basis-brother states he is an alcoholic 03/27/17 pt denies alcohol use. 04/24/17 pt states he drinks in moderation, 2-3 drinks/day. Past Drug Use History: Cocaine, Heroin, Marijuana Additional Drug Use History / Comment(s): marijauna and cocaine last used 02/2017 - Past Family History Father Additional Family Medical History / Comment(s): Father was an alcoholic and at 44. Mother Family Medical History: No Reported History Additional Family Medical History / Comment(s): Mother is healthy. Brother(s) Family Medical History: Diabetes Mellitus Medications and Allergies Home Medications Medication Instructions Recorded Confirmed Type HYDROcodone/APAP 10-325MG [[place] 1 tab PO DAILY 09/08/18 09/08/18 History 10-325] amLODIPine BESYLATE 10 mg PO DAILY 09/08/18 09/08/18 History cloNIDine HCL [Catapres] 0.2 mg PO TID 09/08/18 09/08/18 History Allergies Allergy/AdvReac Type Severity Reaction Status Date / Time aspirin AdvReac Nausea & Verified 09/08/18 07:58 Vomiting Physical Exam Vitals: Vital Signs Temp Pulse Pulse Resp BP BP Pulse Ox 09/08/18 04:00 98.8 F 73 76 18 146/88 171/79 99 09/08/18 03:54 98.8 F 76 18 171/79 99 09/08/18 03:04 85 16 151/93 96 09/08/18 01:17 98.5 F 83 22 141/107 99 Intake and Output 09/07/18 09/08/18 09/08/18 22:59 06:59 14:59 Intake Total 150 Balance 150 Intake: Oral 150 Other: Voiding Method Toilet Weight 65.1 kg PHYSICAL EXAMINATION: GENERAL: 68-year-old -[place] African gentleman in no acute distress at the time of my examination HEENT: Head is atraumatic, normocephalic. Pupils equal, round. Sclera anicteric. Conjunctiva are clear. Mucous membranes of the mouth are moist. Neck is supple. There is no elevated jugular venous pressure. No carotid bruit is heard. HEART EXAMINATION: Heart S1 S2 1 systolic ejection murmur is heard. CHEST EXAMINATION: Lungs are clear with mild diminished air entry to the bases. ABDOMEN: Soft, nontender. Bowel sounds are heard. No organomegaly noted. EXTREMITIES: 2+ peripheral pulses with no evidence of peripheral edema and no calf tenderness noted. NEUROLOGIC patient is awake, alert and oriented 3 . . Results 09/08/18 01:29 09/08/18 01:29 Cardiac Enzymes 09/08/18 09/08/18 Range/Units 01:29 01:29 AST 73 H (17-59) U/L Troponin I 0.019 (0.000-0.034) ng/mL Coagulation 09/08/18 Range/Units 02:00 PT 11.2 (9.0-12.0) sec APTT 27.6 (22.0-30.0) sec CBC 09/08/18 Range/Units 01:29 WBC 4.8 (3.8-10.6) k/uL RBC 3.36 L (4.30-5.90) m/uL Hgb 10.7 L (13.0-17.5) gm/dL Hct 33.0 L (39.0-53.0) % Plt Count 185 (150-450) k/uL Comprehensive Metabolic Panel 09/08/18 Range/Units 01:29 Sodium 135 L (137-145) mmol/L Potassium 5.1 (3.5-5.1) mmol/L Chloride 97 L (98-107) mmol/L Carbon Dioxide 22 (22-30) mmol/L BUN 22 H (9-20) mg/dL Creatinine 6.68 H (0.66-1.25) mg/dL Glucose 63 L (74-99) mg/dL Calcium 8.8 (8.4-10.2) mg/dL AST 73 H (17-59) U/L ALT 38 (21-72) U/L Alkaline Phosphatase 247 H (38-126) U/L Total Protein 6.9 (6.3-8.2) g/dL Albumin 3.8 (3.5-5.0) g/dL Current Medications Generic Name Dose Route Start Last Admin Trade Name Freq PRN Reason Stop Dose Admin Hydrocodone Bitart/Acetaminophen 1 each 09/08/18 05:07 09/08/18 05:38 [place] 10 PO 1 each QID PRN Administration Mild to Moderate Pain Amlodipine Besylate 10 mg 09/08/18 09:00 09/08/18 08:02 Norvasc PO 10 mg DAILY BR[place]TON Administration Clonidine 0.2 mg 09/08/18 09:00 09/08/18 08:02 Catapres PO 0.2 mg TID BRITTON Administration Morphine Sulfate 4 mg 09/08/18 04:05 09/08/18 08:02 Morphine Sulfate (Inj) IVP 4 mg Q4HR PRN Administration Pain Naloxone HCl 0.2 mg 09/08/18 04:06 Narcan IV Q2M PRN Opioid Reversal Nitroglycerin 0.4 mg 09/08/18 03:18 Nitrostat SUBLINGUAL Q5M PRN Chest Pain Intake and Output 09/07/18 09/08/18 09/08/18 22:59 06:59 14:59 Intake Total 150 Balance 150 Intake: Oral 150 Other: Voiding Method Toilet Weight 65.1 kg 09/08/18 01:29 09/08/18 01:29 EKG Interpretations (text) EKG shows a normal sinus rhythm with no acute changes. Assessment and Plan Plan: Assessment and plan #1 chest pain, atypical for acute coronary syndrome. EKG shows normal sinus rhythm with no acute changes. Initial troponin 0.019. Patient underwent a dobutamine echocardiographic study in July of this year which was negative for any reversible ischemia. #2 end-stage renal disease on hemodialysis #3 hypertension, uncontrolled. #4 nicotine dependence #5 history of EtOH and drug abuse #6 history of noncompliance Plan We will obtain an echocardiogram with Doppler study. We'll also make some medication adjustments for more optimal blood pressure control. Further recommendations to follow. DNP note has been reviewed, I agree with a documented findings and plan of care. Patient was seen and examined.
--- NOTE | 2018-09-08 08:53 | XR ---
EXAMINATION TYPE: XR chest 2V DATE OF EXAM: 09/08/2018 COMPARISON: Prior chest x-ray 07/24/2018 HISTORY: Chest pain TECHNIQUE: Frontal and lateral views of the chest are obtained on 3 images. FINDINGS: There is no focal air space opacity, pleural effusion, or pneumothorax seen. The cardiac silhouette size is within normal limits. The aorta is dense. Prominent lung volumes are noted suggest ing underlying COPD. Central venous catheter is present with tip in the right atrium via a left jugul ar approach. There is a stent within the right axillary region. There are cardiac leads. The osseous structures are intact. IMPRESSION: No acute cardiopulmonary process. Preliminary report provided by [facility] rad radiology time of performance of the exam.
[2018-09-08] MEDS ORDERED: cloNIDine HCL 0.2 MG TAB PO SCH (09:00)
--- NOTE | 2018-09-08 10:28 | P.NPCON ---
History of Present Illness - Reason for Consult end stage renal disease - History of Present Illness Reason for consultation: End-stage renal disease History of present illness: Patient is a 68-year-old male seen in renal consultation for end-stage renal disease. He is maintained on hemodialysis on a Thursday schedule via a permacath. He completed hemodialysis yesterday. Patient states he became dyspneic and also had intermittent chest pain for which he came to the hospital. His BNP was elevated at 10,700 and d-dimer was also noted to be elevated. Chest x-ray revealed no significant evidence of fluid overload. He is scheduled to undergo VQ scan today. No cough. No fever or chills. Did have loose bowel movements prior to admission. No evidence of hypotension. In fact blood pressures are on the higher side. Appetite is fair. No edema. No abdominal pain. Vital signs are stable. General: The patient appeared well nourished and normally developed. HEENT: Head exam is unremarkable. Neck is without jugular venous distension. LUNGS: Lungs are clear to auscultation and percussion. Breath sounds decreased. HEART: Rate and Rhythm are regular. First and second heart sounds normal. No murmurs, rubs or gallops. ABDOMEN: Abdominal exam reveals normal bowel sounds. Non-tender and non- distended. No evidence of peritonitis. EXTREMITITES: No clubbing, cyanosis, or edema. Past Medical History Past Medical History: Dialysis, Hyperlipidemia, Hypertension, Renal Disease Additional Past Medical History / Comment(s): "spot on liver", back pain History of Any Multi-Drug Resistant Organisms: None Reported Past Surgical History: Orthopedic Surgery Additional Past Surgical History / Comment(s): 07/01/16 NICO. dialysis graft to right upper arm, jaw surgery (titanium screws) Past Anesthesia/Blood Transfusion Reactions: No Reported Reaction Past Psychological History: Bipolar, Depression Additional Psychological History / Comment(s): Pt resides with one of his brothers. He does not drive. Smoking Status: Current every day smoker Past Alcohol Use History: Occasional Additional Past Alcohol Use History / Comment(s): Pt started smoking around age 7 or 8 yrs. He drinks on a daily basis-brother states he is an alcoholic 03/27/17 pt denies alcohol use. 04/24/17 pt states he drinks in moderation, 2-3 drinks/day. Past Drug Use History: Cocaine, Heroin, Marijuana Additional Drug Use History / Comment(s): marijauna and cocaine last used 02/2017 - Past Family History Father Additional Family Medical History / Comment(s): Father was an alcoholic and at 44. Mother Family Medical History: No Reported History Additional Family Medical History / Comment(s): Mother is healthy. Brother(s) Family Medical History: Diabetes Mellitus Medications and Allergies Home Medications Medication Instructions Recorded Confirmed Type HYDROcodone/APAP 10-325MG [[place] 1 tab PO DAILY 09/08/18 09/08/18 History 10-325] amLODIPine BESYLATE 10 mg PO DAILY 09/08/18 09/08/18 History cloNIDine HCL [Catapres] 0.2 mg PO TID 09/08/18 09/08/18 History Allergies Allergy/AdvReac Type Severity Reaction Status Date / Time aspirin AdvReac Nausea & Verified 09/08/18 07:58 Vomiting Physical Exam Vitals: Vital Signs Temp Pulse Pulse Resp BP BP Pulse Ox 09/08/18 08:00 98.7 F 77 18 163/88 97 09/08/18 04:00 98.8 F 73 76 18 146/88 171/79 99 09/08/18 03:54 98.8 F 76 18 171/79 99 09/08/18 03:04 85 16 151/93 96 09/08/18 01:17 98.5 F 83 22 141/107 99 Intake and Output 09/07/18 09/08/18 09/08/18 22:59 06:59 14:59 Intake Total 150 120 Balance 150 120 Intake: Oral 150 120 Other: Voiding Method Toilet Toilet # Voids 0 Weight 65.1 kg Results - Lab Results Most recent lab results Calcium 8.8 mg/dL (8.4-10.2) 09/08/18 01:29 Magnesium 1.8 mg/dL (1.6-2.3) 09/08/18 01:29 09/08/18 01:29 09/08/18 01:29 Assessment and Plan Plan: Assessment: 1. End-stage renal disease maintained on hemodialysis on a Thursday S schedule via a permacath. 2. Dyspnea and chest pain. No evidence of acute coronary syndrome. Cardiology following. VQ scan pending. 3. Hypertension with chronic kidney disease. 4. Chronic kidney disease mineral bone disease. 5. Anemia of chronic kidney disease. Hemoglobin at goal. Plan: Hemodialysis tomorrow. Follow-up echocardiogram and VQ scan results. Check phosphorus level. Dose of blood pressure meds adjusted by cardiology. Thank you for the consultation. I will continue to follow the patient with you during his hospital stay.
[2018-09-08] MEDS ORDERED: SODIUM CHLORIDE 0.65% NASAL SPRAY 44 ML BTL NASAL PRN (11:21)
--- NOTE | 2018-09-08 14:02 | ECHOF ---
Referral Reason:chestpain MEASUREMENTS -------- HEIGHT: 170.2 cm WEIGHT: 64.9 kg BP: 171/70 IVSd: 1.0 cm (0.6 - 1.1) LVIDd: 4.2 cm (3.9 - 5.3) LVPWd: 1.5 cm (0.6 - 1.1) IVSs: 2.0 cm LVIDs: 2.5 cm LVPWs: 1.8 cm LAESV Index (A-L): 15.03 ml/m Ao Diam: 3.6 cm (2.0 - 3.7) AV Cusp: 1.8 cm (1.5 - 2.6) LA Diam: 2.2 cm (2.7 - 3.8) MV EXCURSION: 11.453 mm (> 18.000) MV EF SLOPE: 63 mm/s (70 - 150) EPSS: 1.2 cm MV E Zachary: 0.94 m/s MV DecT: 208 ms MV A Zachary: 1.32 m/s MV E/A Ratio: 0.71 AR PHT: 293 ms FINDINGS -------- Sinus rhythm. This was a technically good study. The left ventricular size is normal. There is mild concentric left ventricular hypertrophy. Overa ll left ventricular systolic function is normal with, an EF between 55 - 60 %. The right ventricle is normal in size. Normal LA size by volume 22+/-6 ml/m2. The right atrial size is normal. Aortic valve is trileaflet and is mildly thickened. Trace amount of aortic regurgitation. The mitral valve leaflets are mildly thickened. Mild mitral regurgitation is present. Trace tricuspid regurgitation present. The right ventricular systolic pressure, as measured by Dopp ler, is {RVSP}. Pulmonic valve appears structurally normal. The aortic root size is normal. Normal inferior vena cava with normal inspiratory collapse consistent with estimated right atrial pre ssure of 5 mmHg. There is no pericardial effusion. CONCLUSIONS -------- 1. Sinus rhythm. 2. This was a technically good study. 3. The left ventricular size is normal. 4. There is mild concentric left ventricular hypertrophy. 5. Overall left ventricular systolic function is normal with, an EF between 55 - 60 %. 6. The right ventricle is normal in size. 7. Normal LA size by volume 22+/-6 ml/m2. 8. The right atrial size is normal. 9. Aortic valve is trileaflet and is mildly thickened. 10. Trace amount of aortic regurgitation. 11. The mitral valve leaflets are mildly thickened. 12. Mild mitral regurgitation is present. 13. Trace tricuspid regurgitation present. 14. The right ventricular systolic pressure, as measured by Doppler, is {RVSP}. 15. Pulmonic valve appears structurally normal. 16. The aortic root size is normal. 17. Normal inferior vena cava with normal inspiratory collapse consistent with estimated right atrial pressure of 5 mmHg. 18. There is no pericardial effusion. DRAFTER PATENT: Adela Kohli RDCS
--- NOTE | 2018-09-08 14:57 | NM ---
EXAMINATION TYPE: NM pul vent and perfuse DATE OF EXAM: 09/08/2018 COMPARISON: Prior exam dated 04/14/2018, chest x-ray 09/08/2018 HISTORY: Shortness of breath, elevated d-dimer TECHNIQUE: Utilizing inhalation of 69.2 mCi Tc 99m DTPA aerosol and intravenous injection of 5.06 mC i of Tc 99m MAA, ventilation and perfusion images are acquired post injection in multiple projections . FINDINGS: Normal radiotracer distribution is noted in the lungs. There is no evidence of mismatched defects. IMPRESSION: Low probability for pulmonary embolus.
[2018-09-08] MEDS: cloNIDine HCL 0.1 MG TAB PO SCH ×2 (17:05→22:55)
--- NOTE | 2018-09-09 00:42 | HP ---
HISTORY AND PHYSICAL CHIEF COMPLAINT: A 68-year-old male admitted to the hospital with chest pain. Cardiology ordered echocardiogram and event pulmonary perfusion imaging test which was negative. He came in with chest pain. He gets dialysis 3 times a week, sharp, worse with deep breathing in the middle of his chest. Some diarrhea. In July, he had a Dobutamine echo, which was negative. Chest x-ray is negative. Labs reviewed. PAST MEDICAL HISTORY: End-stage renal disease, bipolar depression. Lumbar disc disease, hypertension, dyslipidemia. SOCIAL HISTORY: Resides with his brother. Does some drugs. History of cocaine abuse. Current everyday smoker. Drinks alcohol 2-3 drinks a day. FAMILY HISTORY: Father alcoholic, at 44. Mother healthy. Brother diabetes mellitus. MEDICATIONS: Home medicines reviewed. PHYSICAL EXAMINATION: Temperature 98.8, pulse 70s to 80s, respiratory rate 16-22, blood pressure 141 to 171 over 79 to 107. HEENT: Normocephalic, atraumatic. Pupils equal, round, reactive to light and accommodation. Neurologic: Alert and oriented x3. Psych: Fair mood and affect. Cardiovascular: S1, S2. Abdomen is soft. BUN is 22, creatinine 6.63, hemoglobin 10.7. ASSESSMENT: 1. Atypical chest pain. Pulmonary embolism has been ruled out. 2. Atypical for acute coronary syndrome. Cardiology has been consulted. 3. End-stage renal disease. 4. Hypertension. 5. Nicotine addiction. 6. Alcohol and drug abuse. 7. Noncompliance. Echo. Cardiology workup. Nephrology workup. Please see further orders. MMODL / IJN: [id number] /
[2018-09-09] MEDS: MORPHINE SULFATE 4 MG/ML SYRINGE IVP PRN ×5 (00:50→20:21)
[2018-09-09] MEDS: HYDROcodone/APAP 10-325MG 1 EACH TAB PO PRN ×4 (04:39→22:09)
[2018-09-09 07:16] LABS: Calcium 8.3 mg/dL (8.4-10.2)
[2018-09-09 07:54] LABS: Potassium 6.1 mmol/L (3.5-5.1)
[2018-09-09] MEDS: amLODIPine 10 MG TAB PO SCH (09:42)
[2018-09-09] MEDS: cloNIDine HCL 0.1 MG TAB PO SCH ×3 (09:42→20:21)
--- NOTE | 2018-09-09 10:50 | P.PN ---
Subjective Patient is seen in follow-up for end-stage renal disease. He is maintained on hemodialysis on a Thursday schedule. Dyspnea is improved. He still complains of intermittent chest discomfort. No vomiting or diarrhea. Hemodynamically stable. Oral intake is good. Vital signs are stable. General: The patient appeared well nourished and normally developed. HEENT: Head exam is unremarkable. Neck is without jugular venous distension. LUNGS: Lungs are clear to auscultation and percussion. Breath sounds decreased. HEART: Rate and Rhythm are regular. First and second heart sounds normal. No murmurs, rubs or gallops. ABDOMEN: Abdominal exam reveals normal bowel sounds. Non-tender and non- distended. No evidence of peritonitis. EXTREMITITES: No clubbing, cyanosis, or edema. Objective - Vital Signs Vital signs: Vital Signs Temp 97 F L 09/09/18 08:00 Pulse 70 09/09/18 08:00 Resp 18 09/09/18 08:00 BP 164/82 09/09/18 08:00 Pulse Ox 100 09/09/18 08:00 Intake & Output 09/08/18 09/09/18 09/09/18 18:59 06:59 18:59 Intake Total 460 Balance 460 Weight 65.7 kg Intake: Oral 460 Other: Voiding Method Toilet Toilet Toilet # Voids 0 1 1 # Bowel Movements 0 - Labs CBC & Chem 7: 09/08/18 01:29 09/09/18 05:50 Labs: Abnormal Lab Results - Last 24 Hours (Table) 09/09/18 Range/Units 05:50 Potassium 6.1 H* (3.5-5.1) mmol/L BUN 37 H (9-20) mg/dL Creatinine 8.77 H* (0.66-1.25) mg/dL Glucose 110 H (74-99) mg/dL Calcium 8.3 L (8.4-10.2) mg/dL Cholesterol 203 H (<200) mg/dL HDL Cholesterol 196 H (40-60) mg/dL Assessment and Plan Plan: Assessment: 1. End-stage renal disease maintained on hemodialysis on a Thursday schedule via a permacath. 2. Dyspnea and chest pain. No evidence of acute coronary syndrome. Cardiology following. Low evidence of PE on VQ scan. 3. Hypertension with chronic kidney disease. 4. Chronic kidney disease mineral bone disease. 5. Anemia of chronic kidney disease. Hemoglobin at goal. 6. Hyperkalemia secondary to chronic kidney disease. Expect improvement postdialysis. Plan: Hemodialysis today. Check phosphorus level.
--- NOTE | 2018-09-09 12:53 | P.PN ---
Subjective Progress Note Date: 09/09/18 This is a 68-year-old -[place] gentleman with history of end-stage renal disease on hemodialysis 3 times a week, hypertension, chronic nicotine abuse, prior history of alcohol and drug use, nondiabetic, who presented to the hospital with symptoms of shortness of breath and associated chest pain. Patient describes the chest pain as sharp in nature, it's worse with deep breathing, worse with cough. According to the patient, he also states that he has been having some episodes of diarrhea. Patient was in the hospital with similar symptoms in July of this year at which time he underwent a dobutamine echocardiographic study which was negative for any reversible ischemia. Chest x-ray performed on admission here remains pending, his EKG shows a normal sinus rhythm with no acute changes noted. White blood cell count 4.8, hemoglobin 10.7, platelet count 185. D-dimer 0.8. Sodium 135, potassium 5.1, BUN 22 and creatinine 6.6. Troponin this morning 0.019. BNP level 10,700. BNP level documented in May was 22,000. At the time of my examination this morning, patient is lying flat in bed, denies any overt shortness of breath, continues to complain of sharp chest pain with taking a deep breath and coughing. 09/09/2018 Patient was seen and examined this morning, still experiencing intermittent sharp chest pains however much improved from admission here. He is scheduled t ronen to undergo dialysis. Blood pressure 164/80 with a heart rate in the 60s, 100% on room air. Sodium 137, potassium 6.1, BUN 37 and creatinine 8.7. VQ scan was low probability for pulmonary embolism. Echocardiogram with Doppler study revealed a normal left ventricular systolic function. Objective - Vital Signs Vital signs: Vital Signs Temp 97.0 F L 09/09/18 11:28 Pulse 64 09/09/18 11:28 Resp 18 09/09/18 11:28 BP 166/80 09/09/18 11:28 Pulse Ox 96 09/09/18 11:28 Intake & Output 09/08/18 09/09/18 09/09/18 18:59 06:59 18:59 Intake Total 460 Balance 460 Weight 65.7 kg Intake: Oral 460 Other: Voiding Method Toilet Toilet Toilet # Voids 0 1 1 # Bowel Movements 0 0 - Exam PHYSICAL EXAMINATION: GENERAL: 68-year-old -[place] gentleman in no acute distress at the time of my examination HEENT: Head is atraumatic, normocephalic. Pupils equal, round. Sclera anicteric. Conjunctiva are clear. Mucous membranes of the mouth are moist. Neck is supple. There is no elevated jugular venous pressure. No carotid bruit is heard. HEART EXAMINATION: Heart S1 S2 1 systolic ejection murmur is heard. CHEST EXAMINATION: Lungs are clear with mild diminished air entry to the bases. ABDOMEN: Soft, nontender. Bowel sounds are heard. No organomegaly noted. EXTREMITIES: 2+ peripheral pulses with no evidence of peripheral edema and no calf tenderness noted. NEUROLOGIC patient is awake, alert and oriented 3 . . - Labs CBC & Chem 7: 09/08/18 01:29 09/09/18 05:50 Labs: Abnormal Lab Results - Last 24 Hours (Table) 09/09/18 09/09/18 Range/Units 05:50 05:50 Potassium 6.1 H* (3.5-5.1) mmol/L BUN 37 H (9-20) mg/dL Creatinine 8.77 H* (0.66-1.25) mg/dL Glucose 110 H (74-99) mg/dL Calcium 8.3 L (8.4-10.2) mg/dL Phosphorus 8.9 H (2.5-4.5) mg/dL Cholesterol 203 H (<200) mg/dL HDL Cholesterol 196 H (40-60) mg/dL Assessment and Plan Plan: Assessment and plan #1 chest pain, atypical for acute coronary syndrome. EKG shows normal sinus rhythm with no acute changes. Initial troponin 0.019. Patient underwent a dobutamine echocardiographic study in July of this year which was negative for any reversible ischemia. #2 end-stage renal disease on hemodialysis #3 hypertension, uncontrolled. #4 nicotine dependence #5 history of EtOH and drug abuse #6 history of noncompliance Plan Echocardiogram with Doppler study revealed a normal left ventricular systolic function. From cardiology's perspective, patient may be able to be discharged home once cleared by primary. We will make him a follow-up appointment in the office post discharge. DNP note has been reviewed, I agree with a documented findings and plan of care. Patient was seen and examined.
[2018-09-10] MEDS: MORPHINE SULFATE 4 MG/ML SYRINGE IVP PRN ×3 (02:11→10:26)
--- NOTE | 2018-09-10 06:08 | PN ---
PROGRESS NOTE SUBJECTIVE: This is an male who has been cleared from relief pilot from medical standpoint, but due to severe hyperkalemia and elevated creatinine, Nephrology is going to keep him an extra day and get dialysis today. Vital signs stable, afebrile. CARDIOVASCULAR: S1, S2. PSYCH: Fair mood and affect. NEUROLOGIC: Alert and oriented x3. LUNGS: Scattered wheezes. ASSESSMENT: 1. End-stage renal disease. 2. Shortness of breath. 3. Atypical chest pain. 4. Hyperkalemia. Please see further orders. Await for renal physician to dialyze the patient and correct metabolic abnormalities prior to discharge. MMODL / IJN: [id number] /
[2018-09-10] MEDS: cloNIDine HCL 0.1 MG TAB PO SCH ×3 (08:02→22:35)
[2018-09-10] MEDS: amLODIPine 10 MG TAB PO SCH (08:02)
[2018-09-10] MEDS: HYDROcodone/APAP 10-325MG 1 EACH TAB PO PRN ×3 (08:02→20:13)
--- NOTE | 2018-09-10 08:38 | P.PN ---
Subjective Patient is seen in follow-up for end-stage renal disease. He is maintained on hemodialysis on a Thursday schedule. Dyspnea is improved. He still complains of intermittent chest discomfort. No vomiting or diarrhea. Hemodynamically stable. Oral intake is good. Patient is requesting to stay at the hospital for another day. Vital signs are stable. General: The patient appeared well nourished and normally developed. HEENT: Head exam is unremarkable. Neck is without jugular venous distension. LUNGS: Lungs are clear to auscultation and percussion. Breath sounds decreased. HEART: Rate and Rhythm are regular. First and second heart sounds normal. No murmurs, rubs or gallops. ABDOMEN: Abdominal exam reveals normal bowel sounds. Non-tender and non- distended. No evidence of peritonitis. EXTREMITITES: No clubbing, cyanosis, or edema. Objective - Vital Signs Vital signs: Vital Signs Temp 97.0 F L 09/10/18 04:00 Pulse 59 L 09/10/18 04:00 Resp 18 09/10/18 04:00 BP 171/89 09/10/18 04:00 Pulse Ox 97 09/10/18 04:00 Intake & Output 09/09/18 09/10/18 09/10/18 18:59 06:59 18:59 Weight 65.5 kg Other: Voiding Method Toilet Toilet # Voids 1 1 # Bowel Movements 0 - Labs CBC & Chem 7: 09/08/18 01:29 09/09/18 05:50 Labs: Abnormal Lab Results - Last 24 Hours (Table) 09/09/18 Range/Units 05:50 Phosphorus 8.9 H (2.5-4.5) mg/dL Assessment and Plan Plan: Assessment: 1. End-stage renal disease maintained on hemodialysis on a Thursday schedule via a permacath. 2. Dyspnea and chest pain. No evidence of acute coronary syndrome. Cardiology following. Low evidence of PE on VQ scan. 3. Hypertension with chronic kidney disease. 4. Chronic kidney disease mineral bone disease. Phosphorus high at 8.9. 5. Anemia of chronic kidney disease. Hemoglobin at goal. 6. Hyperkalemia secondary to chronic kidney disease. Expect improvement postdialysis. Plan: Hemodialysis tomorrow. Add PhosLo with meals. Stable to be discharged home from nephrology standpoint.
[2018-09-10] MEDS: CALCIUM ACETATE 667 MG CAP PO SCH ×2 (12:43→17:44)
[2018-09-10 14:05] LABS: Calcium 8.7 mg/dL (8.4-10.2); Potassium 5.5 mmol/L (3.5-5.1)
[2018-09-11] MEDS: HYDROcodone/APAP 10-325MG 1 EACH TAB PO PRN ×2 (01:57→08:13)
[2018-09-11] MEDS: amLODIPine 10 MG TAB PO SCH (08:14)
[2018-09-11] MEDS: cloNIDine HCL 0.1 MG TAB PO SCH (08:14)
[2018-09-11 12:18] VITALS: BP 146/86; PULSE 66; RESP 16; TEMP 97.6
[2018-09-11] MEDS: CALCIUM ACETATE 667 MG CAP PO SCH (12:51)
--- NOTE | 2018-09-11 19:15 | DS ---
DISCHARGE SUMMARY MEDICATIONS: 1. Nitrostat 0.4 mg sublingual. 2. Catapres 0.3 mg t.i.d. 3. Calcium acetate. 4. PhosLo 667 t.i.d. 5. Norvasc 10 mg daily. CONDITION: Stable. PROGNOSIS: Guarded. Ambulate as tolerated. HOSPITAL COURSE OF EVENTS: This is a white male came with shortness of breath, chest pain, fluid overload. Cardiology cleared for myocardial infarction. Cleared him for discharge. He was kept in the hospital for a significant fluid overload, hyperkalemia and end-stage renal disease. He needed multiple days of dialysis in a row at which time he was cleared for discharge to follow up as an outpatient per Nephrology. Condition stable. Prognosis guarded. MMODL / IJN: [id number] /
== END 2018-09-11 13:10 | disposition home or self-care (01) ==
LOC: EC 01:16 → 3SCARD 03:47 → 3NMEDONC 09-10 21:06
PROVIDERS: ADMIT Family Medicine; ATTEND Family Medicine
DX: R07.2 Precordial pain (principal); E87.5 Hyperkalemia; R19.7 Diarrhea, unspecified; R06.00 Dyspnea, unspecified; R79.89 Other specified abnormal findings of blood chemistry; E87.70 Fluid overload, unspecified; E78.5 Hyperlipidemia, unspecified; I12.0 Hypertensive chronic kidney disease with stage 5 chronic kidney disease or end stage renal disease; Z99.2 Dependence on renal dialysis; N18.6 End stage renal disease; M54.9 Dorsalgia, unspecified; M89.8X9 Other specified disorders of bone, unspecified site; D63.1 Anemia in chronic kidney disease; M51.9 Unspecified thoracic, thoracolumbar and lumbosacral intervertebral disc disorder; F10.10 Alcohol abuse, uncomplicated; F19.10 Other psychoactive substance abuse, uncomplicated; F31.9 Bipolar disorder, unspecified; Z91.19 Patient's noncompliance with other medical treatment and regimen; Z79.891 Long term (current) use of opiate analgesic; Z79.899 Other long term (current) drug therapy; Z88.6 Allergy status to analgesic agent; F17.200 Nicotine dependence, unspecified, uncomplicated; Z81.1 Family history of alcohol abuse and dependence; Z83.3 Family history of diabetes mellitus
CPT/HCPCS: 90970; 96376 ×3; 93005 ×2; 96372; 96374; 99285; 36415; 94760; 93306; 85379; 83880; 80061; 80053; 80048 ×2; 83735; 84100; 84484; 85025; 85610; 85730; 71046; 78582; G0378 ×5; G0257 ×2; A9540; A9567; J2270 ×4; J1650; 90935

== ENCOUNTER 2018-09-28 01:23 | Inpatient (IN) | payer MEDICARE ==
[2018-09-28] MEDS ORDERED: HYDROmorphone 1 MG/ML 1 ML SYRINGE IVP STA (02:22)
[2018-09-28] MEDS ORDERED: NITROGLYCERIN OINT 1 INCH/GM PACKET TOPICAL STA (02:23)
[2018-09-28] MEDS ORDERED: cloNIDine HCL 0.2 MG TAB PO STA (02:23)
--- NOTE | 2018-09-28 02:37 | XR ---
EXAM: XR Chest, 1 View CLINICAL HISTORY: ITS.REASON XR Reason: dyspnea TECHNIQUE: Frontal view of the chest. COMPARISON: 09/08/18 chest x-ray IMPRESSION: Left central line is stable. Unchanged heart size. Mildly increased interstitial markings, possibly representing mild edema. No consolidation or pleural effusion.
--- NOTE | 2018-09-28 04:09 | ED ---
General Adult HPI - General Chief complaint: Recheck/Abnormal Lab/Rx Stated complaint: SOB Time Seen by Provider: 09/28/18 01:54 Source: patient, EMS Mode of arrival: EMS Limitations: no limitations - History of Present Illness Initial comments: This patient is 68-year-old man who presents with complaint of all over body aches and shortness of breath. Patient states she has history of end-stage renal disease and currently taking dialysis Thursday. The patient states that family member was having a birthday republican on Thursday so he could not attend his dialysis session. Over the course the past day he has had body aches which are affecting his back, trunk and all extremities. He states he is also becoming short of breath. States shortness of breath is worse if he lies flat. He denies productive cough. Onset/Timin -: days(s) Quality: aching Consistency: constant Improves with: none Worsens with: none Associated Symptoms: malaise, shortness of breath Treatments Prior to Arrival: none - Related Data Home Medications Medication Instructions Recorded Confirmed HYDROcodone/APAP 10-325MG [[place] 1 tab PO DAILY 09/08/18 09/28/18 10-325] amLODIPine BESYLATE 10 mg PO DAILY 09/08/18 09/28/18 cloNIDine HCL [Catapres] 0.2 mg PO TID 09/08/18 09/28/18 Atorvastatin Calcium [Lipitor] 20 mg PO HS 09/28/18 09/28/18 Allergies Allergy/AdvReac Type Severity Reaction Status Date / Time aspirin AdvReac Nausea & Verified 09/08/18 07:58 Vomiting Review of Systems ROS Statement: Those systems with pertinent positive or pertinent negative responses have been documented in the HPI. ROS Other: All systems not noted in ROS Statement are negative. Constitutional: Reports: weakness (Generalized). Denies: fever, chills Respiratory: Reports: dyspnea. Denies: cough, wheezes Cardiovascular: Reports: orthopnea. Denies: chest pain, palpitations, edema Gastrointestinal: Denies: abdominal pain, nausea, vomiting, diarrhea Genitourinary: Denies: dysuria, hematuria Musculoskeletal: Reports: myalgia. Denies: back pain Skin: Denies: rash Neurological: Denies: headache, weakness, numbness Past Medical History Past Medical History: Dialysis, Hyperlipidemia, Hypertension, Renal Disease Additional Past Medical History / Comment(s): "spot on liver", back pain History of Any Multi-Drug Resistant Organisms: None Reported Past Surgical History: Orthopedic Surgery Additional Past Surgical History / Comment(s): 07/01/16 NICO. dialysis graft to right upper arm, jaw surgery (titanium screws) Past Anesthesia/Blood Transfusion Reactions: No Reported Reaction Past Psychological History: Bipolar, Depression Smoking Status: Current every day smoker Past Alcohol Use History: Occasional Past Drug Use History: Cocaine, Heroin, Marijuana - Past Family History Father Additional Family Medical History / Comment(s): Father was an alcoholic and at 44. Mother Family Medical History: No Reported History Additional Family Medical History / Comment(s): Mother is healthy. Brother(s) Family Medical History: Diabetes Mellitus General Exam Limitations: no limitations General appearance: alert, in distress (Respiratory distress) Head exam: Present: atraumatic, normocephalic Eye exam: Present: normal appearance ENT exam: Present: mucous membranes dry Neck exam: Present: normal inspection Respiratory exam: Present: respiratory distress (I'll tachypnea), rales (Bilateral bases). Absent: wheezes, rhonchi, stridor, accessory muscle use, decreased breath sounds, prolonged expiratory Cardiovascular Exam: Present: regular rate, normal rhythm, normal heart sounds. Absent: systolic murmur, diastolic murmur, rubs, gallop GI/Abdominal exam: Present: soft. Absent: distended, tenderness, guarding, rebound, mass Extremities exam: Present: normal inspection, normal capillary refill. Absent: pedal edema, calf tenderness Neurological exam: Present: alert Skin exam: Present: warm, dry, intact, normal color. Absent: rash Course Vital Signs 09/28/18 09/28/18 09/28/18 01:31 01:40 03:56 Temperature 97.6 F Pulse Rate 93 84 Pulse Rate [ Pulse Oximetery ] Respiratory 25 H 22 19 Rate Blood Pressure 190/109 202/94 Blood Pressure [Right Arm] O2 Sat by Pulse 99 97 Oximetry 09/28/18 09/28/18 09/28/18 04:15 04:30 05:00 Temperature Pulse Rate 97 101 H 93 Pulse Rate [ Pulse Oximetery ] Respiratory 25 H 20 25 H Rate Blood Pressure 182/92 184/94 179/94 Blood Pressure [Right Arm] O2 Sat by Pulse Oximetry 09/28/18 09/28/18 09/28/18 06:00 08:26 10:00 Temperature Pulse Rate 87 Pulse Rate [ 105 H Pulse Oximetery ] Respiratory 24 18 18 Rate Blood Pressure 152/101 Blood Pressure 170/126 [Right Arm] O2 Sat by Pulse 96 93 L Oximetry 09/28/18 09/28/18 09/28/18 12:00 16:00 19:26 Temperature 102.5 F H 102.9 F H Pulse Rate Pulse Rate [ 98 101 H 87 Pulse Oximetery ] Respiratory 18 14 17 Rate Blood Pressure Blood Pressure 145/86 153/87 175/98 [Right Arm] O2 Sat by Pulse 93 L 92 L 91 L Oximetry EKG Findings - EKG Comments: EKG Findings:: Possible old septal infarct. - EKG Results: EKG: interpreted by LISA, sinus rhythm (Rate 92 bpm), normal axis, normal QRS, normal ST/T Medical Decision Making - Medical Decision Making Patient is 68-year-old man with end-stage renal disease who has missed his previous dialysis session, and presents with what clinically appears to be some volume overload. Lab studies also show him to be hyperkalemic. Discussed with nephrology his case, and they will have the patient dialyzed as soon as it can be arranged. Nursing staff has called to arrange dialysis. Dr. Mccurdy initially requested that the patient's hyperkalemia be treated with the cocktail of medications however nursing staff not able to establish peripheral IV, and when I discussed having a central line placed for this purpose, nephrology states that this is not necessary and the patient was be dialyzed within the next 2 hours. - Lab Data Result diagrams: 09/29/18 13:06 09/29/18 13:06 Lab Results 09/28/18 09/28/18 09/28/18 Range/Units 03:40 03:40 03:40 WBC 4.8 (3.8-10.6) k/uL RBC 3.26 L (4.30-5.90) m/uL Hgb 10.8 L (13.0-17.5) gm/dL Hct 30.0 L (39.0-53.0) % MCV 92.0 D (80.0-100.0) fL MCH 33.2 (25.0-35.0) pg MCHC 36.1 (31.0-37.0) g/dL RDW 15.7 H (11.5-15.5) % Plt Count 364 (150-450) k/uL Neutrophils % 77 % Lymphocytes % 10 % Monocytes % 8 % Eosinophils % 3 % Basophils % 1 % Neutrophils # 3.7 (1.3-7.7) k/uL Lymphocytes # 0.5 L (1.0-4.8) k/uL Monocytes # 0.4 (0-1.0) k/uL Eosinophils # 0.1 (0-0.7) k/uL Basophils # 0.0 (0-0.2) k/uL PT (9.0-12.0) sec INR (<1.2) APTT (22.0-30.0) sec Sodium 128 L (137-145) mmol/L Potassium 7.4 H* (3.5-5.1) mmol/L Chloride 94 L (98-107) mmol/L Carbon Dioxide 16 L (22-30) mmol/L Anion Gap 18 mmol/L BUN 58 H (9-20) mg/dL Creatinine 13.60 H* (0.66-1.25) mg/dL Est GFR (CKD-EPI)AfAm 4 (>60 ml/min/1.73 sqM) Est GFR (CKD-EPI)NonAf 3 (>60 ml/min/1.73 sqM) Glucose 62 L (74-99) mg/dL Calcium 8.7 (8.4-10.2) mg/dL Magnesium 2.0 (1.6-2.3) mg/dL Total Bilirubin 0.5 (0.2-1.3) mg/dL AST 59 (17-59) U/L ALT 29 (21-72) U/L Alkaline Phosphatase 169 H (38-126) U/L Troponin I (0.000-0.034) ng/mL NT-Pro-B Natriuret Pep 78382 pg/mL Total Protein 6.8 (6.3-8.2) g/dL Albumin 3.8 (3.5-5.0) g/dL 09/28/18 09/28/18 Range/Units 03:40 03:40 WBC (3.8-10.6) k/uL RBC (4.30-5.90) m/uL Hgb (13.0-17.5) gm/dL Hct (39.0-53.0) % MCV (80.0-100.0) fL MCH (25.0-35.0) pg MCHC (31.0-37.0) g/dL RDW (11.5-15.5) % Plt Count (150-450) k/uL Neutrophils % % Lymphocytes % % Monocytes % % Eosinophils % % Basophils % % Neutrophils # (1.3-7.7) k/uL Lymphocytes # (1.0-4.8) k/uL Monocytes # (0-1.0) k/uL Eosinophils # (0-0.7) k/uL Basophils # (0-0.2) k/uL PT 11.4 (9.0-12.0) sec INR 1.1 (<1.2) APTT 28.4 (22.0-30.0) sec Sodium (137-145) mmol/L Potassium (3.5-5.1) mmol/L Chloride (98-107) mmol/L Carbon Dioxide (22-30) mmol/L Anion Gap mmol/L BUN (9-20) mg/dL Creatinine (0.66-1.25) mg/dL Est GFR (CKD-EPI)AfAm (>60 ml/min/1.73 sqM) Est GFR (CKD-EPI)NonAf (>60 ml/min/1.73 sqM) Glucose (74-99) mg/dL Calcium (8.4-10.2) mg/dL Magnesium (1.6-2.3) mg/dL Total Bilirubin (0.2-1.3) mg/dL AST (17-59) U/L ALT (21-72) U/L Alkaline Phosphatase (38-126) U/L Troponin I <0.012 (0.000-0.034) ng/mL NT-Pro-B Natriuret Pep pg/mL Total Protein (6.3-8.2) g/dL Albumin (3.5-5.0) g/dL Critical Care Time Critical Care Time: Yes (35 minutes) Disposition Clinical Impression: End stage renal disease, Hyperkalemia, Hypertension Disposition: ADMITTED IP TO THIS [facility] Condition: Serious
[2018-09-28 04:30] LABS: Albumin 3.8 g/dL (3.5-5.0); Calcium 8.7 mg/dL (8.4-10.2); Total Bilirubin 0.5 mg/dL (0.2-1.3); Total Protein 6.8 g/dL (6.3-8.2)
[2018-09-28 04:35] LABS: Basophils % (A) 1 %; Eosinophils # (A) 0.1 k/uL (0-0.7); Eosinophils % (A) 3 %; HGB 10.8 gm/dL (13.0-17.5); Lymphocytes # (A) 0.5 k/uL (1.0-4.8); Lymphocytes % (A) 10 %; MCH 33.2 pg (25.0-35.0); MCHC 36.1 g/dL (31.0-37.0); Mean Platelet Volume 7.1; Monocytes # (A) 0.4 k/uL (0-1.0); Monocytes % (A) 8 %; Neutrophils # (A) 3.7 k/uL (1.3-7.7); Neutrophils % (A) 77 %; Platelet Count 364 k/uL (150-450); RBC 3.26 m/uL (4.30-5.90); RDW 15.7 % (11.5-15.5); WBC 4.8 k/uL (3.8-10.6)
[2018-09-28 04:44] LABS: INR 1.1 (<1.2); Partial Thromboplastin Time 28.4 sec (22.0-30.0); Prothrombin Time 11.4 sec (9.0-12.0)
[2018-09-28 04:46] LABS: Potassium 7.4 mmol/L (3.5-5.1)
[2018-09-28] MEDS ORDERED: HYDROmorphone 1 MG/ML 1 ML SYRINGE IM STA (06:55)
[2018-09-28] MEDS: cloNIDine HCL 0.2 MG TAB PO SCH ×3 (11:50→23:28)
[2018-09-28] MEDS: amLODIPine 10 MG TAB PO SCH (11:50)
[2018-09-28] MEDS: HYDROcodone/APAP 10-325MG 1 EACH TAB PO SCH (13:40)
--- NOTE | 2018-09-28 14:26 | HP ---
HISTORY AND PHYSICAL CHIEF COMPLAINT: A 68-year-old male with significant pain all over his body and shortness of breath. He had end-stage renal disease with fluid overload as he missed his dialysis treatments once or twice in the past week due to a birthday alliance party for a 91- year-old Mom. He is complaining of pain throughout his whole body, constant aching, some of the shortness of breath, cough. HOME MEDICATIONS: 1. Amlodipine. 2. Catapres. 3. [place] 10. ALLERGIES: ASPIRIN . 14 POINT REVIEW OF SYSTEMS: Negative except for pain throughout his whole body and noncompliant. He has end-stage renal disease, hypertension, dyslipidemia, spot on his liver, bipolar depression, current everyday smoker, cocaine, heroin, marijuana. PAST FAMILY HISTORY: Father alcoholic, at age 41. Mother healthy with diabetes mellitus. PHYSICAL EXAM: VITAL SIGNS: Stable, afebrile. HEENT: Alert and oriented x3. HEAD: Normocephalic, atraumatic. OPHTHALMOLOGIC: Pupils equal, round, react to light and accommodation. NECK: Supple. LUNGS: Showed some tachypnea, no accessory muscle use. Mild wheeze. CARDIOVASCULAR: S1, S2. ABDOMEN: Soft. EXTREMITIES: No cyanosis, clubbing, edema. CONSTITUTIONAL: He is lying on his side. Moaning due to severe pain. NEUROLOGIC: Alert and orient x3. PSYCH: Fair mood and affect. Temp 97.6, blood pressure 190s to 202/94 to 109. RESPIRATORY: O2 saturation 97% to 99% on room air. EKG shows old septal infarct, maybe, sinus rhythm, no ischemia. Potassium 7.4, sodium 128, BUN is 58, creatinine 13.6, hemoglobin 10.8, platelets 62. ASSESSMENT: Severe hyperkalemia, end-stage renal disease, hyponatremia, admitted. Home medicines for hypertension acceleration will be given, dialysis will be given. Await for renal physicians recommendations on current treatments. Please see further orders. MMODL / IJN: [id number] /
[2018-09-28 16:36] LABS: Albumin 3.9 g/dL (3.5-5.0); Calcium 8.6 mg/dL (8.4-10.2); Potassium 5.8 mmol/L (3.5-5.1); Total Bilirubin 0.5 mg/dL (0.2-1.3); Total Protein 6.9 g/dL (6.3-8.2)
[2018-09-28 17:15] LABS: Hepatitis B Surface AB- Quant 74.5 mIU/mL
[2018-09-28] MEDS: ACETAMINOPHEN TAB 325 MG TAB PO PRN (19:37)
[2018-09-28] MEDS: ATORVASTATIN 20 MG TAB PO SCH (23:28)
[2018-09-29] MEDS: ACETAMINOPHEN TAB 325 MG TAB PO PRN (05:47)
--- NOTE | 2018-09-29 08:35 | CONS ---
CONSULTATION REASON FOR CONSULT: End-stage renal disease. HISTORY OF PRESENT ILLNESS: The patient is a 68-year-old male with end-stage renal disease on hemodialysis on a Thursday, , Thursday schedule. The patient missed his treatment on Thursday. He states that he was at birthday democrat for his mom who is 94 years old and he states he had increased fluid intake and did not come for his treatment on Thursday. He presented with significant shortness of breath and chest pain. Patient was dialyzed this morning. His potassium was also elevated at 7.4. We had about 3 L of ultrafiltration. The patient states he is feeling better, but still mildly short of breath and is complaining of pain all over his body. He does not have any fever. Troponin was not elevated. PAST MEDICAL HISTORY: End-stage renal disease, history of previous noncompliance with dialysis, hyperlipidemia, CKD mineral bone disorder, history of depression. PAST SURGICAL HISTORY: SOCIAL HISTORY: Current smoker with history of use of cocaine, marijuana, and heroin. MEDICATIONS: Prior to admission include amlodipine, clonidine. ALLERGIES: Allergies include ASPIRIN which cause nausea and vomiting. PHYSICAL EXAMINATION: On examination, patient is currently comfortable. He is not in any acute distress. Blood pressure was 153/87, heart rate 101 per minute. Patient did have a fever of 102.5 degrees Fahrenheit. EXAMINATION OF THE HEART: S1, S2. EXAMINATION OF THE LUNGS: Bilateral breath sounds are heard. Abdomen is soft, nontender. Examination of the lower extremities shows no significant edema. REEL MAN exam is grossly intact. LABS: Labs show sodium 132, potassium 5.8, BUN 28, serum creatinine 7.83. White cell count was 4.8 this morning, hemoglobin 10.8 g/dL. ASSESSMENT: 1. End-stage renal disease, on hemodialysis on a Thursday, , Thursday schedule. The patient was dialyzed this morning. We will dialyze him again tomorrow for fluid overload and hyperkalemia. 2. Fever, rule out catheter-related infection. Check blood cultures tomorrow with dialysis as patient does not have an IV access currently. 3. Hypertension, uncontrolled, partly volume sensitive. 4. Volume overload, improved since admission. The patient will be dialyzed again tomorrow. 5. Hyperkalemia associated with noncompliance with dialysis, currently improved. The patient will be dialyzed again tomorrow. PLAN: Repeat hemodialysis in a.m. Obtain blood cultures with dialysis in a.m. and preferably obtain blood cultures tonight as well. Start empiric antibiotics. MMODL / IJN: [id number] /
[2018-09-29] MEDS: amLODIPine 10 MG TAB PO SCH (08:57)
[2018-09-29] MEDS: HYDROcodone/APAP 10-325MG 1 EACH TAB PO SCH (08:57)
[2018-09-29] MEDS: cloNIDine HCL 0.2 MG TAB PO SCH ×3 (08:57→21:38)
[2018-09-29] MEDS: OSELTAMIVIR 60 MG/10 ML ORAL SYRINGE PO SCH (12:06)
[2018-09-29] MEDS: HYDROcodone/APAP 10-325MG 1 EACH TAB PO PRN ×2 (13:58→21:38)
[2018-09-29 14:01] LABS: Albumin 3.6 g/dL (3.5-5.0); Calcium 8.9 mg/dL (8.4-10.2); Potassium 5.1 mmol/L (3.5-5.1); Total Bilirubin 0.5 mg/dL (0.2-1.3); Total Protein 6.8 g/dL (6.3-8.2)
[2018-09-29 14:14] LABS: Basophils % (A) 0 %; Eosinophils # (A) 0.1 k/uL (0-0.7); Eosinophils % (A) 1 %; HCT 26.6 % (39.0-53.0); Lymphocytes # (A) 0.5 k/uL (1.0-4.8); Lymphocytes % (A) 5 %; MCH 32.3 pg (25.0-35.0); MCHC 33.8 g/dL (31.0-37.0); MCV 95.3 fL (80.0-100.0); Mean Platelet Volume 7.5; Monocytes # (A) 0.4 k/uL (0-1.0); Monocytes % (A) 3 %; Neutrophils # (A) 10.3 k/uL (1.3-7.7); Neutrophils % (A) 91 %; Platelet Count 267 k/uL (150-450); RBC 2.79 m/uL (4.30-5.90); RDW 15.4 % (11.5-15.5); WBC 11.3 k/uL (3.8-10.6)
--- NOTE | 2018-09-29 14:26 | P.CRDCN ---
History of Present Illness History of present illness: This is a pleasant 68-year-old -Congolese male past medical history significant for end-stage renal disease on hemodialysis Thursday and Thursday, dyslipidemia, hypertension, chronic kidney disease, hepatitis B, liver cirrhosis, chronic alcohol use and chronic nicotine dependence. He denies history of coronary artery disease and does not follow regularly with a fruit and vegetable inspector for any reason. We have been asked to see him in consultation secondary to fluid overload. The patient states he missed dialysis on Thursday to attend his mother's birthday constitution party. He presented to the hospital with symptoms of cough, congestion, shortness of breath and although over swelling. He states in the past when he has missed dialysis he gets swelling in his face and arms which is how he fell yesterday. He did undergo dialysis treatment yesterday and his symptoms of shortness of breath and swelling have greatly improved. He denies any symptoms of chest discomfort, palpitations or dizziness. EKG reveals sinus mechanism with poor R-wave progression. Chest x- ray on admission reveals mildly increased interstitial markings. Laboratory data reviewed, WBC 11.3, hemoglobin 9, platelets 267, sodium 134, potassium on admission 5.8 and a 5.1 today, creatinine 10.8, GFR 5, cardiac enzymes negative 3, NT proBNP 13,800. He also has tested positive for influenza A. Current cardiac medications include atorvastatin 20 mg daily, amlodipine 10 mg daily and clonidine 0.2 mg 3 times a day. He was recently in the hospital in August 2018 and underwent an echocardiogram revealing normal LV systolic function with no evidence of valvular heart disease. At the time of my exam: CONSTITUTIONAL: Denies fever. Denies chills. EYES: Denies blurred vision. Denies vision changes. Denies eye pain. EARS, NOSE, MOUTH & THROAT: Denies headache. Denies sore throat. Denies ear pain. CARDIOVASCULAR: Denies chest pain. Denies shortness of breath. Denies orthopnea. Denies PND. Denies palpitations. RESPIRATORY: Complains of cough and congestion. GASTROINTESTINAL: Denies abdominal pain. Denies diarrhea. Denies constipation. Denies nausea. Denies vomiting. MUSCULOSKELETAL: Complains of significant body aches. INTEGUMENTARY: Denies pruitis. Denies rash. NEUROLOGIC: Denies numbness. Denies tingling. Denies weakness. PSYCHIATRIC: Denies anxiety. Denies depression. ENDOCRINE: Denies fatigue. Denies weight change. Denies polydipsia. Denies polyurina. GENITOURINARY: Denies burning, hematuria or urgency with micturation. HEMATOLOGIC: Denies history of anemia. Denies bleeding. Blood pressure 134/82 heart rate 84 temperature 102F and maintaining oxygen saturation on room air GENERAL: This is a 68-year-old -Congolese male in no apparent distress at the time of my examination. HEENT: Head is atraumatic, normocephalic. Pupils are equal, round. Sclerae anicteric. Conjunctivae are clear. Mucous membranes of the mouth are moist. Neck is supple. There is no jugular venous distention. No carotid bruit is heard. LUNGS: Clear to auscultation no wheezes, rales or rhonchi. No chest wall te nderness is noted on palpation or with deep breathing. Diminished bilaterally. HEART: Regular rate and rhythm without murmurs, rubs or gallops. S1 and S2 heard. ABDOMEN: Soft, nontender. Bowel sounds are heard. No organomegaly noted. EXTREMITIES: No evidence of peripheral edema and no calf tenderness noted. VASCULAR: Radial and dorsalis pedis pulses palpated, no evidence of clubbing. NEUROLOGIC: Patient is awake, alert and oriented x3. ASSESSMENT Fluid overload related to missing dialysis End-stage renal disease on hemodialysis Acute influenza A Hyperkalemia resolved after dialysis Hypertension Dyslipidemia Chronic nicotine and alcohol dependence PLAN Symptoms of fluid overload are related to missing dialysis not suggestive of heart failure. No symptoms of angina. Overall stable from a cardiac perspective. Continue current medical regimen. Thank you kindly for this consultation. Nurse Practitioner note has been reviewed, I agree with a documented findings and plan of care. Patient was seen and examined. Past Medical History Past Medical History: Dialysis, Hyperlipidemia, Hypertension, Liver Disease, Renal Disease Additional Past Medical History / Comment(s): Pt recently admitted to [facility] on 09/08/18 with fluid overload, SOB and chest pain. Other hx: ESRD with dialysis on //Thu-pt received dialysis in ER 09/28/18, chronic back pain, liver cirrhosis. History of Any Multi-Drug Resistant Organisms: None Reported Past Surgical History: Orthopedic Surgery Additional Past Surgical History / Comment(s): 07/01/16 NICO, dialysis graft to right upper arm, jaw surgery (titanium screws) Past Anesthesia/Blood Transfusion Reactions: No Reported Reaction Smoking Status: Current every day smoker - Past Family History Father Additional Family Medical History / Comment(s): Father was an alcoholic and at 44. Mother Family Medical History: No Reported History Additional Family Medical History / Comment(s): Mother is healthy. Brother(s) Family Medical History: Diabetes Mellitus Medications and Allergies Home Medications Medication Instructions Recorded Confirmed Type HYDROcodone/APAP 10-325MG [[place] 1 tab PO DAILY 09/08/18 09/28/18 History 10-325] amLODIPine BESYLATE 10 mg PO DAILY 09/08/18 09/28/18 History cloNIDine HCL [Catapres] 0.2 mg PO TID 09/08/18 09/28/18 History Atorvastatin Calcium [Lipitor] 20 mg PO HS 09/28/18 09/28/18 History Allergies Allergy/AdvReac Type Severity Reaction Status Date / Time aspirin AdvReac Nausea & Verified 09/08/18 07:58 Vomiting Physical Exam Vitals: Vital Signs Temp Pulse Resp BP Pulse Ox 09/29/18 08:56 99.3 F 09/29/18 07:00 102.0 F H 84 19 134/82 93 L 09/29/18 05:45 101.3 F H 09/29/18 00:53 100.0 F H 74 16 146/80 94 L 09/28/18 23:26 73 144/82 09/28/18 19:26 102.9 F H 87 17 175/98 91 L 09/28/18 16:00 102.5 F H 101 H 14 153/87 92 L Intake and Output 09/28/18 09/29/18 09/29/18 22:59 06:59 14:59 Other: Voiding Method Urinal # Voids 3 Weight 68.039 kg Results 09/29/18 13:06 09/28/18 15:55 Cardiac Enzymes 09/28/18 09/28/18 Range/Units 15:40 15:55 AST 55 (17-59) U/L Troponin I 0.023 (0.000-0.034) ng/mL CBC 09/29/18 Range/Units 13:06 WBC 11.3 H (3.8-10.6) k/uL RBC 2.79 L (4.30-5.90) m/uL Hgb 9.0 L D (13.0-17.5) gm/dL Hct 26.6 L (39.0-53.0) % Plt Count 267 (150-450) k/uL Comprehensive Metabolic Panel 09/28/18 Range/Units 15:55 Sodium 132 L (137-145) mmol/L Potassium 5.8 H (3.5-5.1) mmol/L Chloride 98 (98-107) mmol/L Carbon Dioxide 22 (22-30) mmol/L BUN 28 H (9-20) mg/dL Creatinine 7.83 H* (0.66-1.25) mg/dL Glucose 90 (74-99) mg/dL Calcium 8.6 (8.4-10.2) mg/dL AST 55 (17-59) U/L ALT 40 (21-72) U/L Alkaline Phosphatase 141 H (38-126) U/L Total Protein 6.9 (6.3-8.2) g/dL Albumin 3.9 (3.5-5.0) g/dL Current Medications Generic Name Dose Route Start Last Admin Trade Name Freq PRN Reason Stop Dose Admin Acetaminophen 650 mg 09/28/18 19:25 09/29/18 05:47 Tylenol Tab PO 650 mg Q6HR PRN Administration Fever and/ or Pain Hydrocodone Bitart/Acetaminophen 1 each 09/29/18 12:42 09/29/18 13:58 [place] 10 PO 1 each Q6H PRN Administration Pain Amlodipine Besylate 10 mg 09/28/18 11:00 09/29/18 08:57 Norvasc PO 10 mg DAILY BR[facility] Administration Atorvastatin Calcium 20 mg 09/28/18 21:00 09/28/18 23:28 Lipitor PO 20 mg HS BR[place]TON Administration Clonidine 0.2 mg 09/28/18 11:00 09/29/18 08:57 Catapres PO 0.2 mg TID BRITTON Administration Oseltamivir Phosphate 30 mg 09/29/18 11:15 09/29/18 12:06 Tamiflu PO 30 mg DAILY BR[facility]TON Administration Intake and Output 09/28/18 09/29/18 09/29/18 22:59 06:59 14:59 Other: Voiding Method Urinal # Voids 3 Weight 68.039 kg Patient Weight 09/30/18 06:59 Weight 68.039 kg 09/29/18 13:06 09/28/18 15:55
[2018-09-29] MEDS ORDERED: MORPHINE SULFATE 2 MG/ML SYRINGE IVP STA (15:43)
[2018-09-29] MEDS: ATENOLOL 25 MG TAB PO SCH ×2 (15:53→21:30)
--- NOTE | 2018-09-29 16:48 | CONS ---
CONSULTATION DATE OF SERVICE: 09/29/2018. REASON FOR CONSULTATION: Fever. HISTORY OF PRESENT ILLNESS: The patient is a 68-year-old male with a past medical history significant for end-stage renal disease, currently on dialysis Thursday, , Thursday through a left subclavian catheter. The patient was brought into the ER on 09/28/2018 with apparent sore throat, generalized body aches, not feeling well and short of breath. The patient denies having any headache. No difficulty swallowing. He did have some shortness of breath along with a cough though not bringing up any sputum. The patient denies any nausea, vomiting, no abdominal pain, or any diarrhea. With these symptoms, the patient was evaluated by the ER physician. On arrival to the ER, the patient did have a chest x-ray which did shows left central line is stable. Mildly increased interstitial markings, possibly representing mild edema. No consolidation or pleural effusion. The patient did have a fever 102.5 degrees Fahrenheit with a fever of 102 this morning that prompted this infectious disease consultation. On admission, the patient white count was 4.8. Repeat this morning was 11.3. The patient did not have influenza serology on admission, though one was repeated this morning. With influenza A coming back positive. No problems with dialysis catheter during dialysis. Cultures remain to be negative so far. REVIEW OF SYSTEMS: Positive points have been mentioned in HPI. Rest of systems are negative. PAST MEDICAL HISTORY: End-stage renal disease on hemodialysis, hyperlipidemia, depression. PAST SURGICAL HISTORY: Catheter placement. SOCIAL HISTORY: Current smoking. History of cocaine and marijuana use. FAMILY HISTORY: No pertinent findings noticed. ALLERGIES: TO ASPIRIN. MEDICATION: Medications include the patient is currently on Tylenol, [place], Norvasc, Lipitor, Catapres. PHYSICAL EXAMINATION: On examination blood pressure is 156/93 with a pulse of 101, temperature 98.5, T-max 102. He is currently 93% on room air. General description is an elderly male lying in bed in no distress. No tachypnea or accessory muscles of respiration use. HEENT: Shows slight pallor. No scleral icterus. Oral mucosal membranes are dry. Lungs unlabored breathing with decreased breath sounds in the bases. No wheeze. Heart S1, S2. Regular rate and rhythm. Abdomen soft. No tenderness. No guarding or rigidity. Extremities are no edema of the feet. SKIN examination: No rash or mass palpable. NEUROLOGICAL: Patient is awake, alert, oriented times three. Mood and affect normal. LABS: Hemoglobin 9 with white count 11.3, BUN of 42, creatinine 10.88. Electrolytes have been normal. Liver enzymes are normal. Influenza serology positive. Hepatitis B surface antibody positive. Antigen was negative. Chest x-ray with no consolidation, pleural effusion. DIAGNOSTIC IMPRESSION AND PLAN: 1. Patient presented to the hospital with a fever of 102 degrees Fahrenheit. The patient did have sore throat, generalized body aches, some of the URI symptoms more likely representing an acute influenza infection. Clinical suspicion is low for underlying secondary bacterial pneumonia. The patient did have some shortness of breath and cough but not bringing up any sputum. Chest x-ray report negative for any consolidation. 2. The patient with end-stage renal disease on hemodialysis. PLAN: 1. We will start the patient on Tamiflu 30 mg p.o. daily, dose has been adjusted to his kidney function, total of 5 days. 2. We will check a procalcitonin level. 3. We will monitor his clinical course closely and adjust medications further if needed. Thank you for this consultation. Will follow this patient along with you. MMODL / IJN: [id number] /
[2018-09-29] MEDS: ATORVASTATIN 20 MG TAB PO SCH (21:38)
--- NOTE | 2018-09-29 22:21 | PN ---
PROGRESS NOTE Patient was seen this morning. He was comfortable. He states he is feeling much better. PHYSICAL EXAMINATION: Blood pressure this morning was 134/82, heart rate of 100 per minute. The patient did have a temp last night. It looks like his influenza A test came back positive. The patient has been started on Tamiflu. He was dialyzed yesterday. We will dialyze him again today. On examination, this morning blood pressure was 134/82, heart rate 100 per minute patient is afebrile. Examination of the heart S1, S2. Examination lungs bilateral breath sounds are heard. Abdomen is soft, nontender. Lower extremities shows no edema. COUNTER HELP exam is grossly intact. LABS SHOW: Sodium 134, potassium 5.1, BUN 42, serum creatinine 10.8. ASSESSMENT: 1. End-stage renal disease, on hemodialysis on a Thursday, , Thursday schedule. The patient will be dialyzed again today as he still appears to be mildly fluid overloaded. 2. Hyperkalemia on admission, currently improved. 3. Influenza A started on Tamiflu. 4. Volume overload, currently improved. PLAN: Hemodialysis today as well as in a.m. Obtain labs with dialysis and we are not able to draw blood. Continue Tamiflu which has been adjusted for renal failure. MMODL / IJN: [id number] /
--- NOTE | 2018-09-29 22:44 | PN ---
PROGRESS NOTE SUBJECTIVE: A 68-year-old male with end-stage renal disease and volume overload. This patient continues to be treated for the flu. Cardiovascular S1 and S2. Lungs clear. GI soft. Hematology negative Homans. Psych fair mood and affect. IMPRESSION: Endstage renal disease. PLAN: Continue current treatment. MMMARGYL / ESTERN: [id number] /
[2018-09-30] MEDS: HYDROcodone/APAP 10-325MG 1 EACH TAB PO PRN ×4 (05:06→22:10)
[2018-09-30] MEDS: amLODIPine 10 MG TAB PO SCH (09:29)
[2018-09-30] MEDS: cloNIDine HCL 0.2 MG TAB PO SCH ×3 (09:29→22:04)
[2018-09-30] MEDS: ATENOLOL 25 MG TAB PO SCH ×3 (09:29→22:10)
[2018-09-30] MEDS: OSELTAMIVIR 60 MG/10 ML ORAL SYRINGE PO SCH (09:34)
[2018-09-30] MEDS ORDERED: VANCOMYCIN IV PER PHARMACY 1 EACH MISC MISCELLANE PRN (13:44)
--- NOTE | 2018-09-30 14:16 | PN ---
PROGRESS NOTE Patient is seen for followup for end-stage renal disease. He is scheduled for hemodialysis today. Patient is being treated for influenza. He is maintained on Tamiflu. Overall, he states he is feeling better. This morning, patient did have a temp of 101 degrees Fahrenheit, blood pressure was 92/60, heart rate 74 per minute. He is afebrile. Examination of the heart S1, S2. Examination of the lungs, breath sounds are decreased. Abdomen is soft, nontender. Exam of the lower extremities shows no edema. LABS: Show sodium 134, potassium 5.1, BUN 42, serum creatinine 10.8, hemoglobin 9.0 g/dL. ASSESSMENT: 1. End-stage renal disease, on hemodialysis on a Thursday, , Thursday schedule. The patient will be dialyzed today. 2. Influenza A, maintained on Tamiflu. 3. Hyperkalemia on admission as patient had missed his dialysis treatment as outpatient. Currently improved. 4. Volume overload, now improved. 5. Chronic kidney disease mineral bone disorder. Continue with the phosphate binders, repeat hemodialysis today. Continue with Tamiflu. Once patient is afebrile, he could be discharged from nephrology standpoint. MMODL / IJN: [id number] /
[2018-09-30] MEDS ORDERED: VANCOMYCIN 1,250 MG in SODIUM CHLORIDE 0.9% 250 ML IVPB ONE (15:00)
[2018-09-30] MEDS: CEFEPIME 1 GM in SODIUM CHLORIDE 0.9% 50 ML IVPB SCH (15:44)
--- NOTE | 2018-09-30 16:07 | PN ---
PROGRESS NOTE DATE OF SERVICE: 09/30/2018 This patient is complaining of a diffuse pain. He is undergoing dialysis. His blood pressure is 92/60, respiratory rate of 18, pulse rate of 74, temperature 101 degrees Fahrenheit, oxygen saturation on 2 L by nasal cannula 90%. HEENT is unremarkable. Chest reveals a dialysis catheter in the left chest. Cardiovascular system is in S1, S2. Abdomen is soft. There is trace pedal edema. Sodium is 134, potassium 5.1, chloride 97, bicarb 23, creatinine of 10.88. BUN of 42. White blood cell count is 11.3, hemoglobin of 9. Blood cultures from 09/28/2018 are showing no growth. IMPRESSION AT THIS TIME: 1. Chronic renal failure with fluid overload, for which he is being dialyzed. 2. Fever, etiology of which is unclear, but likely represents a viral infection versus bacterial pneumonia. ID is on the case and the patient has been started on Tamiflu. 3. Chronic pain, for which we will continue pain medication for his control. Depending on how he does, we shall make further changes to his care. MMODL / IJN: [id number] /
--- NOTE | 2018-09-30 17:01 | XR ---
EXAMINATION TYPE: XR chest 2V DATE OF EXAM: 09/30/2018 COMPARISON: 09/28/2018 HISTORY: Fever TECHNIQUE: Frontal and lateral views of the chest are obtained. FINDINGS: Heart is normal. Lungs are clear of consolidation. There is left central venous catheter w ith the tip in the superior vena cava. There is no sign of pneumothorax. Costophrenic angles are yari r. There is no heart failure. IMPRESSION: No active cardiopulmonary disease. There is some clearing of the pulmonary interstitial density compared to last exam.
[2018-09-30] MEDS: CALCIUM ACETATE 667 MG CAP PO SCH (17:27)
--- NOTE | 2018-09-30 20:19 | PN ---
PROGRESS NOTE DATE OF SERVICE: 09/30/2018. REASON FOR FOLLOWUP: 1. Acute influenza. 2. Persistent fever. INTERVAL HISTORY: The patient unfortunately has been running fever almost since midnight. The fever 101.1, this morning was 102.5. This afternoon the patient has been complaining of increasing shortness of breath. He did have complaints of coughing and bringing up some greenish sputum. The patient denies having any chest pain. Slight nausea but no vomiting. No abdominal pain. No diarrhea. REVIEW OF SYSTEMS: Positive points have been mentioned in the HPI. Rest of review of systems negative. PAST MEDICAL AND SURGICAL HISTORY: Reviewed, unchanged. MEDICATIONS: Medication reviewed. PHYSICAL EXAMINATION: Blood pressure is 101/54 with a pulse of 74. Temperature of 102.5. He is 91% on 2 L nasal cannula. General description is an elderly male lying in bed in no distress. HEENT examination is slight pallor. No scleral icterus. Oral mucosa membranes are dry. LUNGS: Unlabored breathing. Decreased breath sounds in the bases. No wheeze. Heart S1, S2. Regular rate and rhythm. Abdomen soft. No distention. No guarding or rigidity. LABS: Hemoglobin is 9, with white count 11.3 with a BUN of 42, creatinine is 10.88. Blood cultures done on admission has been negative so far. DIAGNOSTIC IMPRESSION AND PLAN: Patient with fever, source is multifactorial in this patient who did have acute influenza, now with persistent fever despite being on oral Tamiflu and the patient complaining of increased shortness of breath along with cough and sputum production. Possibility of secondary bacterial pneumonia versus a PermCath infection. Blood cultures will be repeated from his [id number]. We will also obtain a chest x-ray, sputum for Gram stain culture and sensitivity. We will empirically add vancomycin, pharmacy to dose and cefepime. Overall prognosis remains to be guarded. Continue supportive care. MMODL / IJN: [id number] /
[2018-09-30] MEDS: ATORVASTATIN 20 MG TAB PO SCH (21:57)
[2018-10-01] MEDS: HYDROcodone/APAP 10-325MG 1 EACH TAB PO PRN ×4 (03:05→21:36)
[2018-10-01] MEDS: CEFEPIME 1 GM in SODIUM CHLORIDE 0.9% 50 ML IVPB SCH (08:28)
[2018-10-01] MEDS: OSELTAMIVIR 60 MG/10 ML ORAL SYRINGE PO SCH (08:29)
[2018-10-01] MEDS: CALCIUM ACETATE 667 MG CAP PO SCH ×3 (08:29→18:19)
[2018-10-01] MEDS: amLODIPine 10 MG TAB PO SCH (11:45)
[2018-10-01] MEDS: ATENOLOL 25 MG TAB PO SCH ×2 (11:46→21:36)
[2018-10-01] MEDS: cloNIDine HCL 0.2 MG TAB PO SCH ×3 (11:46→21:36)
[2018-10-01] MEDS ORDERED: VANCOMYCIN 1,250 MG in SODIUM CHLORIDE 0.9% 250 ML IVPB ONE (12:00)
[2018-10-01] MEDS ORDERED: IOPAMIDOL-300 CONTRAST 30 ML VIAL (ORAL USE) PO PRN (14:55)
--- NOTE | 2018-10-01 16:49 | PN ---
PROGRESS NOTE DATE OF SERVICE: 10/01/2018 REASON FOR FOLLOWUP: 1. Acute influenza. 2. Question of pneumonia. INTERVAL HISTORY: The patient's overall fever pattern has improved. The highest temperature recorded today has been 100.6 compared to 102.5 yesterday after the patient was started on vancomycin and cefepime. The patient continues to complain of shortness of breath and cough, bringing up some sputum, though x-ray report yesterday did not show any acute pneumonia. Patient is complaining of pain in the abdominal area, more of a diffuse pain. Some nausea but no vomiting and no diarrhea has been reported. PHYSICAL EXAMINATION: Blood pressure 96/59 with a pulse of 70, temperature 100.4. He is 92% on room air. General description is an elderly male lying in bed in no distress. RESPIRATORY SYSTEM: Unlabored breathing with decreased breath sounds in the bases. HEART: S1, S2. Regular rate and rhythm. ABDOMEN: Soft. Mild distention. No guarding. No rigidity. EXTREMITIES: No edema of the feet. LABS: Hemoglobin is 9, white count 11.3 with a BUN of 42, creatinine 10.88. DIAGNOSTIC IMPRESSION AND PLAN: 1. Patient admitted to hospital with a fever. Source is acute influenza, for which the patient is currently on Tamiflu 30 mg daily, to finish a 5-day course of therapy. 2. Patient with persistent fever with concern for pneumonia. However, x-ray did not show any consolidation. Now the patient is complaining of abdominal pain, for which we will obtain a CT of abdomen and pelvis. Continue with vancomycin, Pharmacy to dose, and cefepime while monitoring his clinical course closely. Continue with supportive care. MMODL / IJN: [id number] /
--- NOTE | 2018-10-01 17:53 | CT ---
EXAMINATION TYPE: CT abdomen pelvis wo con DATE OF EXAM: 10/01/2018 COMPARISON: 08/24/2018 and 04/24/2017. HISTORY: Fever and abdominal pain. CT DLP: 398.1 mGycm Automated exposure control for dose reduction was used. TECHNIQUE: Helical acquisition of images was performed from the lung bases through the pelvis. FINDINGS: There is some patchy mild infiltrate in atelectasis at the posterior lung bases. There is no pleural effusion. Heart appears slightly enlarged. There is no pericardial effusion. Liver shows no focal defect. Gallbladder is contracted. Spleen appears normal. Stomach appears normal . There is no pancreatic mass. There is some calcification in the pancreatic head probably due to old inflammatory disease. There is no adrenal mass. Kidneys are small. The right kidney measures 6.1 cm in length. Left kidney measures 7.1 cm in length. There is no hydronephrosis. Abdominal aorta is atheromatous. There are sig moid diverticula without evidence of diverticulitis. There is no retroperitoneal adenopathy. Bladder is almost empty. There is no free fluid in the pelvis. There is no inguinal hernia. There is no mesen teric edema. There is no sign of a bowel obstruction. There are spondylotic changes in the lumbar spi ne. There is moderate disc space narrowing and sclerosis at L2-3 and L5-S1. This could relate to old chronic discitis. There is no compression fracture. There is no ascites. There is no sign of free air. IMPRESSION: ATHEROSCLEROTIC VASCULAR DISEASE. RENAL ATROPHY. MINIMAL INFILTRATE AND ATELECTASIS AT THE LUNG BASES . PULMONARY ABNORMALITY APPEARS NEW COMPARED TO OLD CT SCAN. NO ACUTE ABNORMALITY WITHIN THE ABDOMEN AND PELVIS. PANCREATIC CALCIFICATION CONSISTENT WITH OLD PANCREATITIS. UNCHANGED. 3.3 CM ANEURYSM OF THE UPPER ABDOMINAL AORTA UNCHANGED.
[2018-10-01] MEDS ORDERED: DARBEPOETIN ALFA 40 MCG/0.4 ML SYRINGE SQ SCH (18:00)
--- NOTE | 2018-10-01 19:44 | PN ---
PROGRESS NOTE Patient is seen for followup for end-stage renal disease. This morning he states he is having abdominal pain. However, he has not had any diarrhea, nausea, vomiting. Blood pressure was also low this morning at 96/59. PHYSICAL EXAMINATION: Today, the patient had a low-grade temp of 100.4, blood pressure 96/59. HEENT atraumatic, normocephalic. Pupils are equal, round, JVP is not elevated. Lymph nodes are not palpable. Thyroid is not enlarged. Examination of the heart S1, S2. Examination of lungs bilateral breath sounds are heard. Decreased breath sounds at bases. Abdomen is soft, nontender. Examination of lower extremities shows no evidence of edema. LAB: Show sodium 134, potassium 5.1, BUN 42, serum creatinine 10.8, hemoglobin 9.0 g/dL. ASSESSMENT: 1. End-stage renal disease for hemodialysis in a.m. 2. Influenza A, maintained on Tamiflu. 3. Fever from influenza A. 4. Blood cultures drawn during dialysis are negative thus far. 5. Anemia of chronic disease. We will maintain patient on Aranesp. 6. Hypertension. Blood pressure is currently low. Hold off on antihypertensive medication. PLAN: 1. Fluid bolus x1 now. 2. Hemodialysis in a.m. 3. Check phosphorus level. 4. Follow up on blood cultures. 5. Start Aranesp. MMODL / IJN: [id number] /
--- NOTE | 2018-10-01 19:59 | PN ---
PROGRESS NOTE DATE OF SERVICE: October 01, 2018. He is complaining of pain and just received a [place]. On physical examination, his blood pressure is 122/73, respiratory rate is 17, temperature 97.7, T-max of 100.4, O2 saturation on room air is in the 84%. HEENT: Unremarkable. Chest reveals decreased breath sounds. Cardiovascular system is S1, S2. Abdomen is soft. There is no edema. CT of the abdomen was reviewed. IMPRESSION: At this time is: 1. Chronic renal failure with fluid overload and acute pulmonary edema. 2. Influenza is likely on Tamiflu. 3. Abdominal pain, etiology which is unclear. CT of the abdomen and pelvis shows pancreatic calcification consistent with old pancreatitis. Continue pain control. Optimize his fluid status. Increase his activity level. Depending on how he does, we should make further changes to his care. DELGADO / MARYCRUZ: [id number] /
[2018-10-01] MEDS: ATORVASTATIN 20 MG TAB PO SCH (21:36)
[2018-10-01] MEDS ORDERED: FLUTICASONE 50MCG/SPRAY NASAL 16GM EA NOSTRIL PRN (21:39)
[2018-10-02] MEDS: HYDROcodone/APAP 10-325MG 1 EACH TAB PO PRN ×4 (04:08→21:42)
[2018-10-02] MEDS: CALCIUM ACETATE 667 MG CAP PO SCH ×3 (08:20→16:14)
[2018-10-02] MEDS: ATENOLOL 25 MG TAB PO SCH ×2 (08:20→21:43)
[2018-10-02] MEDS: CEFEPIME 1 GM in SODIUM CHLORIDE 0.9% 50 ML IVPB SCH (08:21)
[2018-10-02] MEDS: amLODIPine 10 MG TAB PO SCH (08:21)
[2018-10-02] MEDS: cloNIDine HCL 0.2 MG TAB PO SCH ×3 (08:21→21:43)
[2018-10-02 08:40] LABS: Calcium 8.7 mg/dL (8.4-10.2); Potassium 4.9 mmol/L (3.5-5.1)
[2018-10-02 08:46] LABS: Vancomycin,Random 25.9 ug/mL
[2018-10-02 08:51] LABS: Basophils % (A) 0 %; Eosinophils # (A) 0.2 k/uL (0-0.7); Eosinophils % (A) 4 %; HGB 9.2 gm/dL (13.0-17.5); Lymphocytes # (A) 0.7 k/uL (1.0-4.8); Lymphocytes % (A) 10 %; MCH 31.9 pg (25.0-35.0); MCHC 32.8 g/dL (31.0-37.0); MCV 97.2 fL (80.0-100.0); Mean Platelet Volume 9.2; Monocytes # (A) 0.4 k/uL (0-1.0); Monocytes % (A) 6 %; Neutrophils # (A) 5.3 k/uL (1.3-7.7); Neutrophils % (A) 79 %; Platelet Count 189 k/uL (150-450); RBC 2.88 m/uL (4.30-5.90); RDW 14.9 % (11.5-15.5); WBC 6.8 k/uL (3.8-10.6)
--- NOTE | 2018-10-02 15:11 | PN ---
PROGRESS NOTE DATE OF SERVICE: 10/02/2018 This patient has been hemodynamically stable. He continues to complain of abdominal pain. He has [place] for pain, which seems to help him in between, and he is off IV pain medications at this time but is requesting some. He has been afebrile. On physical examination, respiratory rate is 16, pulse rate 60, temperature 97.8, blood pressure 127/79, O2 saturation on room air 93%. HEENT is unremarkable. Chest is clear. Cardiovascular system is in S1, S2. Abdomen is soft. There is no edema. IMPRESSION AT THIS TIME: 1. Influenza-like illness. 2. End-stage renal disease, on dialysis with pulmonary edema. 3. Abdominal pain, etiology of which is unclear. Continue pain control. Increase his activity level. Plan for dialysis tomorrow and possible discharge planning after that if he is otherwise stable. DELGADO / MARYCRUZ: [id number] /
[2018-10-02] MEDS ORDERED: OSELTAMIVIR 60 MG/10 ML ORAL SYRINGE PO ONE (16:00)
--- NOTE | 2018-10-02 19:08 | PN ---
PROGRESS NOTE DATE OF SERVICE: 10/02/2018. REASON FOR FOLLOWUP: 1. Acute influenza. 2. Pneumonia. INTERVAL HISTORY: The patient overall feels better and has improved with no fever recorded in last 24 hours. The patient has been breathing comfortably. Cough has decreased in intensity. Still complaining of abdominal pain though. No nausea, vomiting or diarrhea. PHYSICAL EXAMINATION: Blood pressure 127/79 with a pulse of 60. Temperature 97.8. He is 93% on room air. General description is an elderly male lying in bed in no distress. Respiratory system: Unlabored breathing. Decreased breath sounds in the bases. No wheeze. Heart is S1, S2. Regular rate and rhythm. Abdomen soft. No tenderness. LABS: Hemoglobin 9.8, white count 6.8 with a BUN of 39, creatinine 8.30. CT abdomen and pelvis did not show any acute abnormality. DIAGNOSTIC IMPRESSION AND PLAN: 1. Patient with acute influenza A for which the patient is currently covered with Tamiflu to finish a 5-day course of therapy. 2. Patient with fever with concern for secondary bacterial pneumonia. Unfortunately, no sputum cultures were collected even though requested 2 days ago and the patient did have significant cough and sputum production at that time, currently on cefepime and vanco that will be continued for now. 3. Continue supportive care. MMODL / IJN: [id number] /
--- NOTE | 2018-10-02 20:18 | PN ---
PROGRESS NOTE The patient is seen on hemodialysis. He tolerated his treatment well. However, he is complaining of abdominal pain on coughing. He tolerated his diet well. There is no diarrhea or vomiting. The patient is now afebrile. His blood pressure this afternoon was 157/95, heart rate 74 per minute. Examination shows no evidence of edema in his lower extremities. Abdomen is soft. No significant tenderness noted. There is minimal tenderness in the upper abdomen. No rebound tenderness is noted. No abdominal masses seen or felt. LAB: Show sodium 137, potassium 4.9, BUN 39, serum creatinine 8.3, hemoglobin 9.2 g/dL. ASSESSMENT: 1. End-stage renal disease, on hemodialysis on a Thursday, , Thursday schedule, status post hemodialysis today. 2. Influenza A maintained on Tamiflu. 3. Fever, most likely secondary to influenza. Doubt PermCath related infection. PLAN: Next dialysis on Thursday. MMODL / ESTERN: [id number] /
[2018-10-02] MEDS: ATORVASTATIN 20 MG TAB PO SCH (21:43)
[2018-10-03] MEDS: HYDROcodone/APAP 10-325MG 1 EACH TAB PO PRN ×3 (06:21→17:15)
[2018-10-03] MEDS: amLODIPine 10 MG TAB PO SCH (07:43)
[2018-10-03] MEDS: cloNIDine HCL 0.2 MG TAB PO SCH ×3 (07:43→21:52)
[2018-10-03] MEDS: CALCIUM ACETATE 667 MG CAP PO SCH ×3 (07:43→17:15)
[2018-10-03] MEDS: ATENOLOL 25 MG TAB PO SCH ×2 (07:44→23:17)
[2018-10-03] MEDS: CEFEPIME 1 GM in SODIUM CHLORIDE 0.9% 50 ML IVPB SCH (07:44)
--- NOTE | 2018-10-03 11:45 | PN ---
PROGRESS NOTE Patient is seen for followup for end-stage renal disease. No significant complaints except patient states that he has about 20 steps in his house and he thinks he is not able to manage that at home. PHYSICAL EXAMINATION: This morning, blood pressure is 169/85, heart rate 51 per minute. He is afebrile. Examination of the heart S1, S2. Examination of lungs bilateral breath sounds are heard. Abdomen is soft, nontender. Exam of lower extremities shows no significant edema. LAB: Show sodium 137, potassium 4.9 from yesterday, hemoglobin was 9.2. ASSESSMENT: 1. End-stage renal disease, on hemodialysis on a Thursday, , Thursday schedule. 2. Influenza A maintained on Tamiflu. 3. Anemia of chronic disease maintained on Aranesp. 4. Chronic kidney disease mineral bone disorder. PLAN: Next hemodialysis on Thursday. Consider discharge planning. MMODL / IJN: [id number] /
[2018-10-03 17:01] VITALS: BMI 23.1
[2018-10-03] MEDS ORDERED: VANCOMYCIN 1,250 MG in SODIUM CHLORIDE 0.9% 250 ML IVPB ONE (21:00)
[2018-10-03] MEDS: ATORVASTATIN 20 MG TAB PO SCH (21:53)
--- NOTE | 2018-10-03 22:19 | PN ---
PROGRESS NOTE DATE OF SERVICE: 10/03/2018. REASON FOR FOLLOWUP: 1. Acute influenza. 2. Post influenza pneumonia. INTERVAL HISTORY: The patient is currently afebrile. The patient has been breathing comfortably. The patient is complaining of cough. Though less productive sputum. Still having abdominal pain with coughing. No nausea, vomiting, or any diarrhea. PHYSICAL EXAMINATION: Blood pressure 160/84 with a pulse of 53, temperature 98.2. He is 96% on room air. General description is an elderly male up in the bed in no distress. Respiratory system: Unlabored breathing. Decreased breath sounds at the bases. No wheeze. Heart S1, S2. Regular rate and rhythm. Abdomen soft. No tenderness. LABS: No new lab have been obtained today. Sputum has been collected, which is currently pending. Blood cultures have been negative. DIAGNOSTIC IMPRESSION AND PLAN: 1. Patient with acute influenza A that has been adequately treated. 2. The patient positive post influenza pneumonia. Currently covered with vancomycin, cefepime to continue while waiting for the sputum culture to finalize to determine his discharge antibiotics. 3. Continue supportive care. MMODL / IJN: [id number] /
--- NOTE | 2018-10-03 22:39 | PN ---
PROGRESS NOTE DATE OF SERVICE: 10/03/2018 He continues to have some chest pain. His heart rate has been running somewhat low in the 50s. He has not undergone dialysis today. PHYSICAL EXAMINATION: Temperature is 98.5, respiratory rate of 16, pulse rate of 51, blood pressure 169/85, O2 saturation on room air is 95%. HEENT reveals pupils that are equal. Chest reveals decreased breath sounds at the bases. Cardiovascular system reveals an S1, S2. Abdomen is soft. There is no pedal edema. IMPRESSION: 1. Influenza. 2. End-stage renal disease, on dialysis. 3. Abdominal pain and chest pain, etiology of which is unclear. Continue dialysis, monitor his heart rate, increase his activity level. Discharge planning when he is otherwise stable from a cardiac perspective. DELGADO / MARYCRUZ: [id number] /
[2018-10-04] MEDS: HYDROcodone/APAP 10-325MG 1 EACH TAB PO PRN ×4 (01:07→18:09)
[2018-10-04 07:12] LABS: Calcium 8.6 mg/dL (8.4-10.2); Potassium 5.5 mmol/L (3.5-5.1)
[2018-10-04] MEDS: cloNIDine HCL 0.2 MG TAB PO SCH ×3 (07:44→22:13)
[2018-10-04] MEDS: amLODIPine 10 MG TAB PO SCH (07:44)
[2018-10-04] MEDS: CALCIUM ACETATE 667 MG CAP PO SCH ×3 (07:44→18:09)
[2018-10-04] MEDS: CEFEPIME 1 GM in SODIUM CHLORIDE 0.9% 50 ML IVPB SCH (07:44)
--- NOTE | 2018-10-04 09:55 | PN ---
PROGRESS NOTE He was seen again on 10/04/2018. He has been hemodynamically stable. He continues to have chest and abdominal pain. On examination, respiratory rate is 16, pulse of 55, temperature 98.4, blood pressure 150/76. HEENT is unremarkable. Chest is clear. Cardiovascular system reveals an S1, S2. Abdomen is mildly tender. There is no edema. IMPRESSION: 1. Influenza. 2. End-stage renal disease with fluid overload and recent pulmonary edema. 3. Bradycardia. Continue to observe his rhythm. Increase his activity level. Depending on how he does, we shall make further changes to his care. His meds were reviewed and will continue same. Discharge planning is possibly for tomorrow once his has dialysis, if he is otherwise stable and does not become febrile or bradycardic. DELGADO / ESTERN: [id number] /
[2018-10-04] MEDS: ATENOLOL 25 MG TAB PO SCH (10:36)
[2018-10-04 10:42] LABS: Magnesium 2.1 mg/dL (1.6-2.3)
--- NOTE | 2018-10-04 16:02 | PN ---
PROGRESS NOTE Patient is seen for followup for end-stage renal disease. He is maintained on a Thursday, , Thursday schedule for dialysis. Patient was admitted with influenza. He has been afebrile. However, he has had complaints of abdominal pain on and off which seems to have resolved now. Yesterday patient stated that he has 20 steps in his house, and he is not able to manage. On examination this morning, blood pressure was 150/76, heart rate 56 per minute. He is afebrile. EXAMINATION OF THE HEART: S1 and S2. EXAMINATION OF LUNGS: Bilateral breath sounds are heard. ABDOMEN: Soft, non-tender. Examination of lower extremities shows no evidence of edema. ASSISTANT PROFESSOR OF PSYCHOLOGY exam is grossly intact. Labs show sodium 138, potassium 5.5, BUN 48, serum creatinine 8.53, hemoglobin 9.2 g/dL. ASSESSMENT: 1. End-stage renal disease, on hemodialysis on a Thursday, , Thursday schedule. 2. Chronic kidney disease mineral bone disorder, maintained on PhosLo. 3. Anemia of chronic disease, maintained on Aranesp. 4. Influenza A, status post Tamiflu. 5. Generalized debility. PLAN: Hemodialysis in a.m. Discharge planning. MMODL / IJN: [id number] /
--- NOTE | 2018-10-04 17:41 | PN ---
PROGRESS NOTE DATE OF SERVICE: 10/04/2018 REASON FOR FOLLOWUP: 1. Acute influenza. 2. Post-influenza pneumonia. INTERVAL HISTORY: The patient is currently afebrile. The patient is breathing comfortably. He continues to be complaining of cough but less productive now. Still having some abdominal pain. No nausea, no vomiting, but complaining of having no appetite. No diarrhea. PHYSICAL EXAMINATION: Blood pressure 168/78, pulse of 70, temperature 97.5. He is 93% on room air. General description is an elderly male lying in bed in no distress. RESPIRATORY SYSTEM: Unlabored breathing with decreased breath sounds at the base. No wheeze. HEART: S1, S2. Regular rate and rhythm. ABDOMEN: Soft. No tenderness. EXTREMITIES: No edema of the feet. LABS: BUN of 48, creatinine of 8.53. Sputum currently pending. DIAGNOSTIC IMPRESSION AND PLAN: 1. Patient with acute influenza that has been adequately treated. 2. Patient with post-influenza pneumonia. Sputum culture is currently pending. Patient on cefepime and vancomycin; to continue while waiting for the culture to finalize to determine his discharge antibiotics. Continue with supportive care. MMODL / IJN: [id number] /
[2018-10-04] MEDS: ATORVASTATIN 20 MG TAB PO SCH (22:13)
[2018-10-05] MEDS: ATENOLOL 25 MG TAB PO SCH ×2 (01:38→10:55)
[2018-10-05 08:30] VITALS: PULSE 60; RESP 16; TEMP 98.3
[2018-10-05 08:46] LABS: Calcium 8.7 mg/dL (8.4-10.2); Potassium 5.5 mmol/L (3.5-5.1)
[2018-10-05 08:50] LABS: Vancomycin,Random 29.6 ug/mL
[2018-10-05] MEDS: HYDROcodone/APAP 10-325MG 1 EACH TAB PO PRN (09:03)
[2018-10-05] MEDS: CALCIUM ACETATE 667 MG CAP PO SCH ×2 (09:03→15:56)
[2018-10-05] MEDS: CEFEPIME 1 GM in SODIUM CHLORIDE 0.9% 50 ML IVPB SCH (09:03)
[2018-10-05] MEDS: amLODIPine 10 MG TAB PO SCH (10:55)
[2018-10-05] MEDS: cloNIDine HCL 0.2 MG TAB PO SCH ×2 (10:55→15:57)
--- NOTE | 2018-10-05 12:34 | P.PN ---
Subjective Patient is seen in follow-up for end-stage renal disease. He is maintained on hemodialysis on a Thursday schedule. Currently seen while undergoing hemodialysis. He was noted to be positive for influenza A and has completed the treatment. Denies cough. Denies chest pain. Does get dyspneic even with minimal exertion. Vital signs are stable. General: The patient appeared well nourished and normally developed. HEENT: Head exam is unremarkable. Neck is without jugular venous distension. LUNGS: Lungs are clear to auscultation and percussion. Breath sounds decreased. HEART: Rate and Rhythm are regular. First and second heart sounds normal. No murmurs, rubs or gallops. ABDOMEN: Abdominal exam reveals normal bowel sounds. Non-tender and non- distended. No evidence of peritonitis. EXTREMITITES: No clubbing, cyanosis, or edema. Objective - Vital Signs Vital signs: Vital Signs Temp 98.3 F 10/05/18 07:00 Pulse 60 10/05/18 07:00 Resp 16 10/05/18 07:00 BP 152/76 10/05/18 07:00 Pulse Ox 93 L 10/05/18 07:00 Intake & Output 10/04/18 10/05/18 10/05/18 18:59 06:59 18:59 Weight 66.4 kg Other: Voiding Method Urinal Urinal # Voids 0 - Labs CBC & Chem 7: 10/02/18 07:23 10/05/18 06:54 Labs: Abnormal Lab Results - Last 24 Hours (Table) 10/05/18 Range/Units 06:54 Potassium 5.5 H (3.5-5.1) mmol/L Chloride 108 H (98-107) mmol/L Carbon Dioxide 19 L (22-30) mmol/L BUN 58 H (9-20) mg/dL Creatinine 9.96 H* (0.66-1.25) mg/dL Microbiology - Last 24 Hours (Table) 10/02/18 Unknown Gram Stain - Final Sputum Sputum Culture - Final 09/28/18 22:49 Blood Culture - Final Blood No Growth after 144 hours 09/30/18 11:05 Blood Culture - Preliminary Blood No Growth after 96 hours Assessment and Plan Plan: Assessment: 1. End-stage renal disease maintained on hemodialysis on a Thursday schedule. 2. Influenza A status post treatment. Now on antibiotics for pneumonia. 3. Hypertension with chronic kidney disease. Controlled. 4. Chronic kidney disease mineral bone disease maintained on PhosLo. 5. Anemia of chronic kidney disease maintained on Aranesp. 6. Hyperkalemia secondary to chronic kidney disease. Expect improvement postdialysis. 7. Metabolic acidosis secondary to chronic kidney disease. Expect improvement postdialysis. Plan: Currently seen while undergoing hemodialysis. Next treatment on .
[2018-10-05] MEDS ORDERED: hydrALAZINE HCL 25 MG TAB PO SCH (12:45)
--- NOTE | 2018-10-05 12:51 | P.PN ---
Subjective This is a pleasant 68-year-old -[place] male past medical history significant for end-stage renal disease on hemodialysis Thursday and Thursday, dyslipidemia, hypertension, chronic kidney disease, hepatitis B, liver cirrhosis, chronic alcohol use and chronic nicotine dependence. He denies history of coronary artery disease and does not follow regularly with a manager wind for any reason.We saw him initially on this admission for fluid overload that was determined to be related to a missed dialysis dose. He is currently being treated for Influenza A. We have been asked to see him again during this admission for bradycardia. He has had elevated blood pressures over the weekend and was started on atenolol 25 mg BID per primary care team. Telemetry tracings indicate his heart rates have been running in the 50-60 range. On exam the patient is seen resting comfortably in bed in no acute distress. He denies any symptoms of dizziness, shortness of breath, chest pain, nausea, vomiting, palpitations or diaphoresis. Blood pressure this morning was 152/76 with a heart rate of 60. He is scheduled to undergo hemodialysis therapy today and then probably discharge this afternoon. Laboratory data reviewed, sodium 137, potassium 5.5, creatinine 9.96, TSH 1.48, magnesium 2.1. Currently maintained on amlodipine 10 mg daily, atenolol 25 mg twice a day, atorvastatin 20 mg daily, clonidine 0.2 mg 3 times a day. Echocardiogram obtained in August 2018 revealed preserved left ventricular systolic function with no evidence of valvular heart disease. GENERAL: This is a 68-year-old -[place] male in no apparent distress at the time of my examination. HEENT: Head is atraumatic, normocephalic. Pupils are equal, round. Sclerae anicteric. Conjunctivae are clear. Mucous membranes of the mouth are moist. Neck is supple. There is no jugular venous distention. No carotid bruit is heard. LUNGS: Clear to auscultation no wheezes, rales or rhonchi. No chest wall tenderness is noted on palpation or with deep breathing. Diminished bilaterally. HEART: Regular rate and rhythm without murmurs, rubs or gallops. S1 and S2 heard. EXTREMITIES: No evidence of peripheral edema and no calf tenderness noted. ASSESSMENT Fluid overload related to missing dialysis End-stage renal disease on hemodialysis Acute influenza A Hyperkalemia resolved after dialysis Hypertension Dyslipidemia Chronic nicotine and alcohol dependence PLAN Decrease atenolol to 25 mg at bedtime. Add hydralazine 25 mg BID. Overall if discharge is planned he may go home, if he stays in the hospital we will follow his telemetry tracings. He is essentially asymptomatic from the mild sinus bradycardia. Nurse Practitioner note has been reviewed, I agree with a documented findings and plan of care. Patient was seen and examined. Objective - Vital Signs Vital signs: Vital Signs Temp 98.3 F 10/05/18 07:00 Pulse 60 10/05/18 07:00 Resp 16 10/05/18 07:00 BP 152/76 10/05/18 07:00 Pulse Ox 93 L 10/05/18 07:00 Intake & Output 10/04/18 10/05/18 10/05/18 18:59 06:59 18:59 Weight 66.4 kg Other: Voiding Method Urinal # Voids 0 - Labs CBC & Chem 7: 10/02/18 07:23 10/05/18 06:54 Labs: Abnormal Lab Results - Last 24 Hours (Table) 10/05/18 Range/Units 06:54 Potassium 5.5 H (3.5-5.1) mmol/L Chloride 108 H (98-107) mmol/L Carbon Dioxide 19 L (22-30) mmol/L BUN 58 H (9-20) mg/dL Creatinine 9.96 H* (0.66-1.25) mg/dL Microbiology - Last 24 Hours (Table) 10/02/18 Unknown Gram Stain - Final Sputum Sputum Culture - Final 09/28/18 22:49 Blood Culture - Final Blood No Growth after 144 hours 09/30/18 11:05 Blood Culture - Preliminary Blood No Growth after 96 hours
[2018-10-05 15:16] VITALS: BP 162/76
--- NOTE | 2018-10-05 15:44 | P.PN ---
Subjective Progress Note Date: 10/05/18 This is a 68-year-old gentleman admitted with acute influenza, post influenza pneumonia in a patient with end-stage renal disease. Currently receiving hemodialysis. Sputum culture reported as moderate normal. Maintained on IV antibiotics as per infectious disease. Telemetry sinus bradycardia, sinus rhy thm with heart rates 50-60. Asymptomatic bradycardia- Evaluated by cardiology with recommendations noted. Hydralazine added to med regime with beta raciel decreased. Denies chest pain, palpitations or increasing shortness of breath. Objective - Vital Signs Vital signs: Vital Signs Temp 98.3 F 10/05/18 07:00 Pulse 60 10/05/18 07:00 Resp 16 10/05/18 07:00 BP 152/76 10/05/18 07:00 Pulse Ox 93 L 10/05/18 07:00 Intake & Output 10/04/18 10/05/18 10/05/18 18:59 06:59 18:59 Weight 66.4 kg Other: Voiding Method Urinal # Voids 0 - Exam PHYSICAL EXAM: VITAL SIGNS: As above GENERAL: Sitting up in bed, no acute distress HEENT: Conjunctivae normal. eyes normal. Oral mucosa moist NECK: No JVD. No thyroid enlargement. No LNs CARDIOVASCULAR: S1, S2 muffled. No murmur RESPIRATION: Unlabored, Breath sounds diminished in the bases. No rhonchi or c rackles. No wheezing. ABDOMEN: Soft, nontender . No guarding. no masses palpable. Bowel sounds hea rd. LEGS: No edema. no swelling PSYCHIATRY: Alert and oriented -3, mood and affect normal. NERVOUS SYSTEM: Cranial N 2-12 grossly normal. Moves all 4 limbs. Diffuse weakness No focal deficits. - Labs CBC & Chem 7: 10/02/18 07:23 10/05/18 06:54 Labs: Abnormal Lab Results - Last 24 Hours (Table) 10/05/18 Range/Units 06:54 Potassium 5.5 H (3.5-5.1) mmol/L Chloride 108 H (98-107) mmol/L Carbon Dioxide 19 L (22-30) mmol/L BUN 58 H (9-20) mg/dL Creatinine 9.96 H* (0.66-1.25) mg/dL Microbiology - Last 24 Hours (Table) 09/28/18 22:49 Blood Culture - Final Blood No Growth after 144 hours 09/30/18 11:05 Blood Culture - Preliminary Blood No Growth after 96 hours Assessment and Plan Assessment: -Acute influenza, completed treatment -Post influenza pneumonia -Hyperkalemia -Hypertension -Ongoing alcohol abuse -Ongoing nicotine dependence Plan: Continue on current medication regime ,monitoring and symptomatic treatment. PT/OT consulted as patient had disclosed to Nephrology difficulty getting up stairs at home. Discharge antibiotic obtained from infectious disease. Discharge planning in progress for possibly today, pending PT evaluation and nephrology clearance. Further recommendations to follow. The impression and plan of care has been dictated as directed. : I performed a history and examination of this patient, discussed the same with the dictator. I agree with the dictator's note ,documented as a scribe. Any additional findings or plans will be noted.
--- NOTE | 2018-10-05 15:53 | PN ---
PROGRESS NOTE DATE OF SERVICE: 10/05/2018 REASON FOR FOLLOWUP: 1. Acute influenza. 2. Pneumonia. INTERVAL HISTORY: The patient is currently afebrile. The patient has been breathing more comfortably. The patient's cough has decreased in intensity. No chest pain. Still having some abdominal pain. No nausea, no vomiting and no diarrhea. PHYSICAL EXAMINATION: Blood pressure is 152/76 with a pulse of 60, temperature 98.3. He is 93% on room air. General description is an elderly male lying in bed in no distress. RESPIRATORY SYSTEM: Unlabored breathing with decreased breath sounds at the base. HEART: S1, S2. Regular rate and rhythm. ABDOMEN: Soft. No tenderness. LABS: BUN of 58, creatinine 9.96. Sputum has been usual respiratory tomas. Blood culture has been negative. DIAGNOSTIC IMPRESSION AND PLAN: 1. Patient with acute influenza, adequately treated. 2. Pneumonia. Initial concern for possible resistant gram-positive or gram-negative. However, sputum has been usual respiratory tomas. Antibiotic will be transitioned to Avelox 400 daily for about 5 days to finish a course of therapy. Continue with supportive care. MMODL / IJN: [id number] /
[2018-10-05] MEDS ORDERED: ATENOLOL 25 MG TAB PO SCH (21:00)
--- NOTE | 2018-10-06 09:11 | P.DS ---
Providers Date of admission: 09/28/18 06:43 Expected date of discharge: 10/05/18 Attending physician: Justin Romano Consults: 09/28/18 06:40 Consult Physician Stat Consulting Provider: Ruby Mccurdy Consult Reason/Comments: Dialysis patient with hyperkalemia and volume overload Do you want consulting provider notified?: Already Contacted 09/28/18 13:04 Consult Physician Urgent Consulting Provider: Dara Fisher Consult Reason/Comments: chf Do you want consulting provider notified?: Yes 09/28/18 13:05 Consult Physician Urgent Consulting Provider: Ruby Mccurdy Consult Reason/Comments: hyperkalemia Do you want consulting provider notified?: Yes 09/28/18 19:26 Consult Physician Routine Consulting Provider: Amelie Vidal Consult Reason/Comments: fever Do you want consulting provider notified?: Yes 10/04/18 09:03 Consult Physician Routine Consulting Provider: Harish Matthews Consult Reason/Comments: bradycardia Do you want consulting provider notified?: Yes Primary care physician: Justin Romano [facility] Hospital Course: Final Diagnoses: -Acute influenza, completed treatment -Post influenza pneumonia -Hyperkalemia -Hypertension -Ongoing alcohol abuse -Ongoing nicotine dependence -End-stage renal disease, on hemodialysis Hospital course:This is a 68-year-old gentleman admitted with acute influenza, post influenza pneumonia in a patient with end-stage renal disease. Evaluated by infectious disease, nephrology, cardiology .Received hemodialysis. Sputum culture usual respiratory tomas, blood culture negative .Maintained on IV antibiotics as per infectious disease. Telemetry sinus bradycardia, sinus rhythm with heart rates 50-60. Asymptomatic bradycardia- Evaluated by cardiology with Hydralazine added to med regime and beta raciel decreased. S ignificant clinical improvement. Patient has been cleared by all consults for discharge. Patient is being discharged home in a stable condition with guarded prognosis. EXAM: GENERAL: Alert and oriented 3, no acute distress CARDIOVASCULAR: S1, S2 muffled. No murmur RESPIRATION: Unlabored, Breath sounds diminished in the bases. No rhonchi or crackles. No wheezing. ABDOMEN: Soft, nontender . No guarding. no masses palpable. Bowel sounds heard. NERVOUS SYSTEM: No focal deficits. The impression and plan of care has been dictated as directed. : I performed a history and examination of this patient, discussed the same with the dictator. I agree with the dictator's note ,documented as a scribe. Any additional findings or plans will be noted. Time taken: 35 minutes Patient Condition at Discharge: Stable Plan - Discharge Summary Discharge Rx Participant: No New Discharge Prescriptions: New Fluticasone Nasal Hague [Flonase Nasal Hague] 2 spray EA NOSTRIL DAILY PRN #1 spr PRN Reason: Allergy Symptoms Calcium Acetate [PhosLo] 667 mg PO TID-W/MEALS #90 cap Darbepoetin Cristofer [Aranesp] 40 mcg SQ Q7D syringe Moxifloxacin HCl [Avelox] 400 mg PO DAILY #5 tablet Atenolol [Tenormin] 25 mg PO HS #30 tab hydrALAZINE HCL [Apresoline] 25 mg PO BID #60 tab Continue cloNIDine HCL [Catapres] 0.2 mg PO TID amLODIPine BESYLATE 10 mg PO DAILY HYDROcodone/APAP 10-325MG [[place] 10-325] 1 tab PO DAILY Atorvastatin Calcium [Lipitor] 20 mg PO HS Discharge Medication List HYDROcodone/APAP 10-325MG [[place] 10-325] 1 tab PO DAILY 09/08/18 [History] amLODIPine BESYLATE 10 mg PO DAILY 09/08/18 [History] cloNIDine HCL [Catapres] 0.2 mg PO TID 09/08/18 [History] Atorvastatin Calcium [Lipitor] 20 mg PO HS 09/28/18 [History] Atenolol [Tenormin] 25 mg PO HS #30 tab 10/05/18 [Rx] Calcium Acetate [PhosLo] 667 mg PO TID-W/MEALS #90 cap 10/05/18 [Rx] Darbepoetin Cristofer [Aranesp] 40 mcg SQ Q7D syringe 10/05/18 [Rx] Fluticasone Nasal Hague [Flonase Nasal [place]ague] 2 spray EA NOSTRIL DAILY PRN #1 spr 10/05/18 [Rx] Moxifloxacin HCl [Avelox] 400 mg PO DAILY #5 tablet 10/05/18 [Rx] hydrALAZINE HCL [Apresoline] 25 mg PO BID #60 tab 10/05/18 [Rx] Follow up Appointment(s)/Referral(s): Ruby Mccurdy MD [STAFF PHYSICIAN] - 1 Week Justin Romano MD [Primary Care Provider] - 10/13/18 10:45 am (Thursday -previously scheduled appointment) Ambulatory/Diagnostic Orders: Complete Blood Count w/diff [LAB.AMB] Time Frame: 3 Days, Location: None Selected Patient Instructions/Handouts: Influenza (DC) Activity/Diet/Wound Care/Special Instructions: Hemodialysis as per nephrology Diet: Renal Activity: Limited till follow-up Discharge Disposition: HOME SELF-CARE
== END 2018-10-05 17:19 | disposition home or self-care (01) | DRG 193 ==
LOC: EC 01:23 → 3SCARD 06:43 → 4SSUR 16:04
PROVIDERS: ADMIT Family Medicine; ATTEND Family Medicine
PROC: 5A1D70Z Performance of Urinary Filtration, Intermittent, Less than 6 Hours Per Day (ICD-10-PCS; principal; 2018-09-28)
DX: J10.00 Influenza due to other identified influenza virus with unspecified type of pneumonia (principal); J81.0 Acute pulmonary edema; N18.6 End stage renal disease; E87.1 Hypo-osmolality and hyponatremia; E87.2 Acidosis; I12.0 Hypertensive chronic kidney disease with stage 5 chronic kidney disease or end stage renal disease; D63.1 Anemia in chronic kidney disease; E78.5 Hyperlipidemia, unspecified; E87.5 Hyperkalemia; E87.70 Fluid overload, unspecified; F10.20 Alcohol dependence, uncomplicated; F17.210 Nicotine dependence, cigarettes, uncomplicated; G89.29 Other chronic pain; K74.60 Unspecified cirrhosis of liver; K86.89 Other specified diseases of pancreas; M89.8X9 Other specified disorders of bone, unspecified site; E83.9 Disorder of mineral metabolism, unspecified; Z91.81 History of falling; Z79.899 Other long term (current) drug therapy; Z81.1 Family history of alcohol abuse and dependence; Z83.3 Family history of diabetes mellitus; Z91.15 Patient's noncompliance with renal dialysis; Z99.2 Dependence on renal dialysis; Z86.19 Personal history of other infectious and parasitic diseases; Z79.891 Long term (current) use of opiate analgesic
CPT/HCPCS: 36415; 71045; 71046; 74176; 80048; 80053; 80202; 83605; 83735; 83880; 84443; 84484; 85025; 85610; 85730; 86706; 87040; 87070; 87205; 87340; 87502; 90935; 93005; 94760; 96372; 96374; 99291